=== PATIENT | male | born 1940 | race Caucasian/White ===

== ENCOUNTER → 2016-11-25 | Outpatient (CLI) | payer BC, OTHER ==
[~2016-11-25] MED LIST: ASPI81TA28 PO; ATOR-22 PO; CARB25TA12 PO; CHOL200010 PO; CLON1TAB3 PO; CYAN10004 PO; ESCI10TA17 PO; FLUD0.1T10 PO; MIRA1TAB3 PO; MISCCAP80 PO; MULT-506 PO; OMEG10007 PO
--- NOTE | 2016-11-25 17:27 | DIAGNOSTIC IMAGING REPORT ---
KUB HISTORY: CONSTIPATION - WENT TO LAB FIRST COMPARISON: None. FINDINGS: The bowel gas pattern is unremarkable. There are no dilated loops of small bowel to suggest an obstruction. No renal calculi. No ureteral calculi. No pneumoperitoneum or pneumatosis. Large amount of well-formed stool seen throughout the colon. Mild bilateral hip osteoarthritis. IMPRESSION: Large amount of well-formed stool seen throughout the colon. Electronically signed by: Micha Cloud M.D. 11/25/2016 5:26 PM Dictated Date/Time: 11/25/2016 5:24 PM
== END | disposition home or self-care (01) ==
LOC: C.LAB 16:02
DX: E55.9 Vitamin D deficiency, unspecified (principal); K59.00 Constipation, unspecified; E53.8 Deficiency of other specified B group vitamins

== ENCOUNTER → 2017-05-06 | Outpatient (CLI) | payer BC, OTHER ==
[2017-05-06 13:28] LABS: BASO % 0.3 %; BASO ABS # 0.02 K/uL (0-0.2); COMPLETE YES; EOS % 3.4 %; HEMATOCRIT 38.7 % (42-52); LYMPH % 21.1 %; LYMPH ABS # 1.36 K/uL (1.2-3.4); MEAN CELL VOLUME 94.2 fL (80-100); MEAN CORPUSCULAR HEMOGLOBIN 30.7 pg (25-34); MEAN CORPUSCULAR HGB CONC 32.6 g/dl (32-36); MEAN PLATELET VOLUME 10.8 fL (7.4-10.4); MONO % 6.3 %; NEUT % 68.9 %; PLATELET COUNT 188 K/uL (130-400); RED BLOOD COUNT 4.11 M/uL (4.7-6.1); WHITE BLOOD COUNT 6.46 K/uL (4.8-10.8)
== END | disposition home or self-care (01) ==
LOC: C.LABBC 11:28
PROVIDERS: ATTEND Internal Medicine Hematology & Oncology
DX: D64.9 Anemia, unspecified (principal)

== ENCOUNTER → 2017-08-25 | Outpatient (CLI) | payer BC, OTHER ==
--- NOTE | 2017-08-25 17:14 | DIAGNOSTIC IMAGING REPORT ---
MERVIN CLINICAL HISTORY: Constipation. COMPARISON STUDY: KUB November 25, 2016. FINDINGS: A moderate amount of stool is noted within the colon and rectum. Amount stool is diminished when compared to exam of November 25, 2016. There is no evidence for a small bowel obstruction. IMPRESSION: 1. No evidence for a bowel obstruction. 2. Moderate amount of stool within the colon and rectum, diminished when compared to exam of November 25, 2016. Electronically signed by: Dax Pozo M.D. 08/25/2017 5:12 PM Dictated Date/Time: 08/25/2017 5:11 PM
[2017-08-25 18:21] LABS: THYROID STIMULATING HORMONE 0.84 uIu/ml (0.300-4.500)
== END | disposition home or self-care (01) ==
LOC: C.RAD 16:06
DX: E03.9 Hypothyroidism, unspecified (principal); K59.00 Constipation, unspecified

== ENCOUNTER → 2017-11-28 | Outpatient (CLI) | payer BC, OTHER ==
[2017-11-28 13:54] LABS: BASO % 0.3 %; BASO ABS # 0.02 K/uL (0-0.2); EOS % 3.5 %; EOS ABS # 0.26 K/uL (0-0.5); HEMATOCRIT 37.6 % (42-52); HEMOGLOBIN 12.5 g/dL (14.0-18.0); IG# 0.01 K/uL (0.00-0.02); LYMPH % 22.1 %; LYMPH ABS # 1.63 K/uL (1.2-3.4); MEAN CELL VOLUME 91.5 fL (80-100); MEAN CORPUSCULAR HEMOGLOBIN 30.4 pg (25-34); MEAN CORPUSCULAR HGB CONC 33.2 g/dl (32-36); MEAN PLATELET VOLUME 10.5 fL (7.4-10.4); MONO % 6.9 %; MONO ABS # 0.51 K/uL (0.11-0.59); NEUT % 67.1 %; NEUT ABS # 4.94 K/uL (1.4-6.5); PLATELET COUNT 192 K/uL (130-400); RED CELL DISTRIBUTION WIDTH CV 13.9 % (11.5-14.5); RED CELL DISTRIBUTION WIDTH SD 46.8 fL (36.4-46.3); WHITE BLOOD COUNT 7.37 K/uL (4.8-10.8)
[2017-11-28 14:09] LABS: ALBUMIN 3.6 gm/dl (3.4-5.0); ALT/SGPT 15 U/L (12-78); BLOOD UREA NITROGEN 22 mg/dl (7-18); CALCIUM 8.8 mg/dl (8.5-10.1); CARBON DIOXIDE 32 mmol/L (21-32); GLUCOSE 92 mg/dl (70-99); POTASSIUM 3.8 mmol/L (3.5-5.1); SODIUM 140 mmol/L (136-145)
[2017-11-28 14:11] LABS: ALKALINE PHOSPHATASE 84 U/L (45-117); AST/SGOT 16 U/L (15-37); TOTAL PROTEIN 6.5 gm/dl (6.4-8.2)
== END | disposition home or self-care (01) ==
LOC: C.LABBC 11:46
PROVIDERS: ATTEND Internal Medicine Hematology & Oncology
DX: D64.9 Anemia, unspecified (principal); Z12.5 Encounter for screening for malignant neoplasm of prostate

== ENCOUNTER → 2018-01-13 | Outpatient (CLI) | payer BC, OTHER ==
[2018-01-13 11:02] LABS: BASO % 0.5 %; BASO ABS # 0.03 K/uL (0-0.2); EOS % 4.9 %; EOS ABS # 0.27 K/uL (0-0.5); HEMATOCRIT 38.9 % (42-52); HEMOGLOBIN 12.9 g/dL (14.0-18.0); IG# 0.01 K/uL (0.00-0.02); LYMPH % 25.7 %; LYMPH ABS # 1.42 K/uL (1.2-3.4); MEAN CELL VOLUME 91.3 fL (80-100); MEAN CORPUSCULAR HEMOGLOBIN 30.3 pg (25-34); MEAN CORPUSCULAR HGB CONC 33.2 g/dl (32-36); MEAN PLATELET VOLUME 10.3 fL (7.4-10.4); MONO % 8.7 %; MONO ABS # 0.48 K/uL (0.11-0.59); NEUT ABS # 3.32 K/uL (1.4-6.5); PLATELET COUNT 202 K/uL (130-400); RED CELL DISTRIBUTION WIDTH CV 13.5 % (11.5-14.5); RED CELL DISTRIBUTION WIDTH SD 44.9 fL (36.4-46.3); WHITE BLOOD COUNT 5.53 K/uL (4.8-10.8)
[2018-01-13 11:39] LABS: ALT/SGPT 32 U/L (12-78); AST/SGOT 19 U/L (15-37); BLOOD UREA NITROGEN 23 mg/dl (7-18); CALCIUM 8.9 mg/dl (8.5-10.1); CARBON DIOXIDE 32 mmol/L (21-32); CHOLESTEROL 144 mg/dl (0-200); CREATININE 1.01 mg/dl (0.60-1.40); GLUCOSE 88 mg/dl (70-99); POTASSIUM 3.8 mmol/L (3.5-5.1); SODIUM 140 mmol/L (136-145)
[2018-01-13 11:43] LABS: LDL CHOLESTEROL CALCULATED 68 mg/dl
== END | disposition home or self-care (01) ==
LOC: C.LABBC 08:35
DX: D64.9 Anemia, unspecified (principal); E78.5 Hyperlipidemia, unspecified; N40.0 Benign prostatic hyperplasia without lower urinary tract symptoms

== ENCOUNTER 2019-08-20 11:47 | Inpatient (IN) ==
[2019-08-20 12:40] LABS: Basophils # (auto) 0.02 K/uL (0-0.2); Basophils % (auto) 0.2 %; Eosinophils # (auto) 0.17 K/uL (0-0.5); Eosinophils % (auto) 1.8 %; Hematocrit (blood only) 41.2 % (42-52); Hemoglobin 13.7 g/dL (14.0-18.0); Immature Granulocytes # (auto) 0.01 K/uL (0.00-0.02); Immature Granulocytes % (auto) 0.1 %; Lymphocytes % (auto) 12.7 %; Mean Corpuscular Hemoglobin 30.9 pg (25-34); Mean Corpuscular Hgb Conc 33.3 g/dL (32-36); Mean Platelet Volume 10.4 fL (7.4-10.4); Monocytes # (auto) 0.74 K/uL (0.11-0.59); Monocytes % (auto) 7.8 %; Neutrophils # (auto) 7.29 K/uL (1.4-6.5); Neutrophils % (auto) 77.4 %; Platelet Count 203 K/uL (130-400); RDW Coefficient of Variation 13.8 % (11.5-14.5); RDW Standard Deviation 47.2 fL (36.4-46.3); Red Blood Count 4.43 M/uL (4.7-6.1); White Blood Count 9.43 K/uL (4.8-10.8)
[2019-08-20] MEDS ORDERED: SODIUM CHLORIDE 0.9% 1000ML 1,000 ML IV ONE (12:49)
[2019-08-20 12:58] LABS: Albumin Level 3.7 gm/dl (3.4-5.0); Calcium 9.3 mg/dl (8.5-10.1); Creatinine Clr Calc Pharmacy 63.5 ml/min; Est GFR (African American) 77.2; Est GFR (Non-African American) 66.6; Potassium 4.4 mmol/L (3.5-5.1)
[2019-08-20] MEDS ORDERED: dilTIAZem HCL 125 MG in DEXTROSE 5% 100 ML IV SCH (13:00)
--- NOTE | 2019-08-20 13:04 | XRay Report ---
XR chest 1V portable CLINICAL HISTORY: weakness COMPARISON STUDY: 06/30/2019 FINDINGS: There is mild elevation left hemidiaphragm. The cardiac and mediastinal contours remain sta ble. There is no failure. There is no focal pulmonary consolidation. There are no pleural effusions.[ IMPRESSION: No active disease in the chest. Electronically signed by: Keith Hoover M.D. 08/20/2019 1:03 PM
[2019-08-20 13:09] LABS: Albumin Globulin Ratio 1.1 (0.9-2); Bilirubin,Total 1.2 mg/dl (0.2-1); Globulin 3.5 gm/dl (2.5-4.0); Thyroid Stimulating Hormone 1.4 uIu/ml (0.300-4.500); Total Protein 7.2 gm/dl (6.4-8.2); Troponin I 0.026 ng/ml (0-0.045)
[2019-08-20 13:16] LABS: Partial Thromboplastin Ratio 1.1; Prothrombin Time 10.6 Seconds (9.0-12.0)
[2019-08-20 13:18] LABS: Bilirubin Direct 0.3 mg/dl (0-0.2); Magnesium 2.2 mg/dl (1.8-2.4)
[2019-08-20] MEDS ORDERED: OPTIRAY 320 125ml IV PRN (13:42)
[2019-08-20 13:45] LABS: Influenza A virus by PCR Neg for Influ A (Neg); Influenza B virus by PCR Neg for Influ B (Neg)
--- NOTE | 2019-08-20 13:46 | CT Scan Report ---
CT SCAN OF THE BRAIN WITHOUT IV CONTRAST CLINICAL HISTORY: Change in mental status. Syncope. Seizure. COMPARISON STUDY: CT of the brain dated 06/30/2019. TECHNIQUE: Unenhanced axial CT scan of the brain is performed from the vertex to the skull base. A do se lowering technique was utilized adhering to the principles of ALARA. CT DOSE: 729.78 mGycm FINDINGS: Brain parenchyma: There are age-related involutional changes noting mild subcortical and periventric ular microangiopathic change. There is no hemorrhage, mass effect, or evidence of acute territorial i schemia by CT criteria. Staples-white matter differentiation is preserved. No extra-axial fluid collecti on is seen. Ventricles, sulci, cisterns: Prominent secondary to involutional change. Intracranial vasculature: There is atherosclerotic calcification of the cavernous carotid and vertebr al arteries. Calvarium: Unremarkable. Sinuses and mastoids: Trace mucosal thickening is noted in the left maxillary antrum, the left spheno id sinus, an the ethmoid sinuses. The mastoid air cells are well pneumatized. Orbits: The bony orbits are grossly intact. IMPRESSION: There is no hemorrhage, mass effect, or evidence of acute territorial ischemia by CT cherri hammond. Electronically signed by: Edi Wood M.D. 08/20/2019 1:45 PM
--- NOTE | 2019-08-20 14:02 | CT Scan Report ---
CT angio chest PE protocol CT DOSE: 399.55 mGycm HISTORY: Chest pain. Dyspnea. ro PE TECHNIQUE: Multiaxial CT images of the chest were performed following the intravenous administration of contrast to evaluate the pulmonary arteries. Maximal intensity projection images were also obtaine d. A dose lowering technique was utilized adhering to the principles of ALARA. COMPARISON STUDY: None. FINDINGS: There is a normal caliber thoracic aorta with no evidence for dissection. There is no evide nce for pulmonary embolus. No pleural effusions. No pneumothorax. The liver and spleen are unremarkab le. No mediastinal or hilar lymphadenopathy. The central airways are patent. The lungs are clear. IMPRESSION: No evidence for pulmonary embolus. Lungs are clear. The above report was generated using voice recognition software. It may contain grammatical, syntax or spelling errors. Electronically signed by: Vasu Hallman M.D. 08/20/2019 2:01 PM
[2019-08-20 14:03] LABS: Appearance Urine Clear (Clear); Bacteria Urine Automated Negative (Negative); Bilirubin Urine Negative (Negative); Blood Urine Negative (Negative); Color Urine Dark Yellow; Epithelial Cell Urine Auto >30 /lpf (0-5); Glucose Urine UA Negative (Negative); Ketones Urine Trace (Negative); Leukocyte Esterase Urine Trace (Negative); Nitrite Urine Negative (Negative); Protein Urine Negative (Negative); RBC Urine Automated 0-4 /hpf (0-4); Urobilinogen Urine Negative (Negative); pH Urine 7.5 (4.5-7.5)
[2019-08-20 14:31] LABS: Mucus Urine Present (None Prsent)
--- NOTE | 2019-08-20 15:06 | History & Physical Report ---
Date of Service August 20, 2019 Assessment & Plan (1) Atrial fibrillation with RVR: -Admit to [facility] with telemetry -Resolved-converted on his own, no chemical intervention -Cardiology discussed with ER attending regarding any needs for anticoagulation in the recommend no anticoagulation at this time -consider cardiology consult -check a 2D echo -Trend troponins, initial was negative (2) Syncope: -Unknown etiology, possible cardiac in nature secondary to A. fib as above -Echo -Check orthostatic vital signs every shift, patient has been known to have history of orthostatic hypotension -Continue midodrine and fludrocortisone (3) Parkinson's disease: -Continue donepezil and Sinemet -Walks without assistive devices, PT/OT consults, from home, lives with (4) Neurogenic bladder: (5) Prostatic hypertrophy: -Increased urinary frequency, UA for any signs of infectious etiology (6) DVT prophylaxis: -Teds CODE STATUS: Full code Disposition: Patient from home, lives with , PT/OT consults, likely to remain in the hospital x1 to 2 days History of Present Illness Primary Care Provider: Jon Bal Jr, DO This is a 79-year-old male with past medical history of Parkinson's disease, BPH with lower urinary symptoms, and history of basal cell carcinoma who presents today with acute onset of syncopal episode. The patient notes that he was at home earlier this morning when he got up from his chair, took 2 steps and fell to the ground. He reports that he did not feel feel himself all morning. He denies any specific chest pain, palpitations, shortness of breath. Patient notes that when he fell he did hit his head, denies any LOC, denies any other trauma or injury. He denies any headache or dizziness. Patient notes he does not use any assistive devices with ambulation although his gait is somewhat "shaky". She notes that he has been known to have orthostatic hypotension in the past, currently is taking midodrine and fludrocortisone on a routine basis. Patient reports he ate breakfast, was drinking fluids this morning without difficulty. Patient notes that throughout his life he has experienced paroxysmal A. fib. He is not on any rate controlling agents nor anticoagulation. When he presented to the ER he was in A. fib with heart rate fluctuating between 111-140. During the ER course patient was scheduled to have a Cardizem drip on, however converted on his own without any intervention. CT of the head is negative, CTA for possible PE is also negative. Cardiology discussed with ER attending regarding needs for possible heparin drip with A. fib with RVR but no need for anticoagulation as the patient self converted, likely short timeframe of being in A. fib. Allergies Allergy/AdvReac Type Severity Reaction Status Date / Time No Known Allergies Allergy Verified 08/20/19 15:19 Home Medications Home Medications Medication Instructions Recorded Confirmed Type atorvastatin 20 mg tablet 20 mg PO QAM tab 05/11/19 08/20/19 History cholecalciferol (vitamin D3) 50 2,000 unit PO HS cap 05/11/19 08/20/19 History mcg (2,000 unit) capsule clonazepam 1 mg tablet 2 mg PO HS #45 tab 05/11/19 08/20/19 History donepezil 10 mg tablet 10 mg PO HS tab 05/11/19 08/20/19 History midodrine 5 mg tablet 5 mg PO TID tab 05/11/19 08/20/19 History escitalopram oxalate [Lexapro] 10 mg PO HS 06/30/19 08/20/19 History fludrocortisone 0.1 mg PO QAM 06/30/19 08/20/19 History levothyroxine [Synthroid] 50 mcg PO QAM 06/30/19 08/20/19 History linaclotide [Linzess] 290 mcg PO QAM 06/30/19 08/20/19 History melatonin 10 mg PO HS 06/30/19 08/20/19 History multivitamin 1 tab PO QAM 06/30/19 08/20/19 History omega [id number]-fish oil [Fish Oil] 1 cap PO HS 06/30/19 08/20/19 History potassium chloride 10 meq PO BID 06/30/19 08/20/19 History sennosides [senna] 0 mg PO BID 06/30/19 08/20/19 History polyethylene glycol 3350 17 8.5 gm PO DAILY PRN 07/14/19 08/20/19 History gram/dose oral powder carbidopa-levodopa 1 tab PO HS 08/20/19 08/20/19 History carbidopa-levodopa [Sinemet] 2 tab PO TID 08/20/19 08/20/19 History Past Med/Surg History Medical History Chronic constipation Hypotension Hypothyroidism Parkinson disease Family History Other Family history non-contributory Social History Preferred Language: Luxembourgish Communication Ability: Effective Manager Of Global Required: No Beliefs That Will Affect Care: None marital status: Current Living Situation: Spouse current occupational status: retired Other Information That Helps Us Care for You: No Feels Safe at Home: Yes Safety Concerns: Feels Safe At This Time Smoking Status: Never smoker Hx Alcohol Use: No Hx Substance Use: No Review of Systems Review of Systems: Constitutional: No fever, sweats or chills Eyes: No diplopia, no worsening or blurred vision ENT: normal hearing, no trouble swallowing Respiratory: No cough, sputum, dyspnea at rest or on exertion Cardiovascular: No chest pain, tightness or palpitations Abdomen: No pain, nausea, vomiting, diarrhea or constipation Musculoskeletal: No joint pain, calf pain, swelling Neurologic: No weakness, numbness/tingling, or balance problems Psychiatric: No anxiety or depression Skin: No rash or itch Physical Exam Physical Exam: General: awake, alert, no apparent distress Head: Normocephalic, atraumatic ENT: PERRL, EOMI, no pharyngeal exudate, mucous membranes moist Chest: Clear to auscultation, on room air, no adventitious breath sounds Cardiac: Regular rate and rhythm, no murmur, no JVD, normal peripheral pulses, good capillary refill Abdominal: NABS x 4 quadrants, soft, nontender to palpation, no rebound, guarding or tenderness Extremities: Normal inspection, no peripheral edema or erythema, calfs nontender to palpation Psych: Normal mood, + somewhat flat affect Neuro: AAO x 3, strength intact bilaterally and related 5/5, no motor deficits, speech is clear, no peripheral sensory deficits Skin: no rash or erythema Results & Data Vital Signs (Past 12 Hours) Vital Signs Temp Pulse Resp BP Pulse Ox 08/20/19 14:50 75 16 97 08/20/19 14:40 77 15 97 08/20/19 14:31 78 13 99 08/20/19 14:30 80 15 194/101 H 97 08/20/19 14:23 78 18 177/101 H 98 08/20/19 14:21 76 14 98 08/20/19 14:10 76 13 98 08/20/19 14:01 72 12 173/95 H 97 08/20/19 14:00 75 16 93 08/20/19 13:50 76 15 98 08/20/19 13:49 79 17 08/20/19 13:28 103/64 08/20/19 13:27 79 20 123/69 98 08/20/19 13:26 77 18 139/81 96 08/20/19 13:20 63 17 100 08/20/19 13:10 64 23 99 08/20/19 13:01 130 H 20 97 08/20/19 13:00 129 H 18 114/83 97 08/20/19 12:50 121 H 15 98 08/20/19 12:40 119 H 25 H 98 08/20/19 12:31 121 H 18 98 08/20/19 12:30 128 H 15 112/80 98 08/20/19 12:28 124 H 19 97 08/20/19 12:25 125 H 19 129/76 97 08/20/19 12:12 36.7 C 82 18 66/48 L 98 Diagnostic Findings XR chest 1V portable CLINICAL HISTORY: weakness COMPARISON STUDY: 06/30/2019 FINDINGS: There is mild elevation left hemidiaphragm. The cardiac and mediastinal contours remain stable. There is no failure. There is no focal pulmonary consolidation. There are no pleural effusions.[ IMPRESSION: No active disease in the chest. CT SCAN OF THE BRAIN WITHOUT IV CONTRAST CLINICAL HISTORY: Change in mental status. Syncope. Seizure. COMPARISON STUDY: CT of the brain dated 06/30/2019. TECHNIQUE: Unenhanced axial CT scan of the brain is performed from the vertex to the skull base. A dose lowering technique was utilized adhering to the principles of ALARA. CT DOSE: 729.78 mGycm FINDINGS: Brain parenchyma: There are age-related involutional changes noting mild subcortical and periventricular microangiopathic change. There is no hemorrhage, mass effect, or evidence of acute territorial ischemia by CT criteria. Staples- white matter differentiation is preserved. No extra-axial fluid collection is seen. Ventricles, sulci, cisterns: Prominent secondary to involutional change. Intracranial vasculature: There is atherosclerotic calcification of the cavernous carotid and vertebral arteries. Calvarium: Unremarkable. Sinuses and mastoids: Trace mucosal thickening is noted in the left maxillary antrum, the left sphenoid sinus, an the ethmoid sinuses. The mastoid air cells are well pneumatized. Orbits: The bony orbits are grossly intact. IMPRESSION: There is no hemorrhage, mass effect, or evidence of acute territorial ischemia by CT criteria. CT angio chest PE protocol CT DOSE: 399.55 mGycm HISTORY: Chest pain. Dyspnea. ro PE TECHNIQUE: Multiaxial CT images of the chest were performed following the intravenous administration of contrast to evaluate the pulmonary arteries. Maximal intensity projection images were also obtained. A dose lowering technique was utilized adhering to the principles of ALARA. COMPARISON STUDY: None. FINDINGS: There is a normal caliber thoracic aorta with no evidence for dissection. There is no evidence for pulmonary embolus. No pleural effusions. No pneumothorax. The liver and spleen are unremarkable. No mediastinal or hilar lymphadenopathy. The central airways are patent. The lungs are clear. IMPRESSION: No evidence for pulmonary embolus. Lungs are clear. ECG Additional Comments: 20-AUG-2019 13:22:30 [facility]-EDSTAT ROUTINE RETRIEVAL Normal sinus rhythm Normal ECG When compared with ECG of 20-AUG-2019 12:21, (unconfirmed) Sinus rhythm has replaced Atrial fibrillation Vent. rate has decreased BY 46 BPM 25mm/s 10mm/mV 150Hz 9.0.9 12SL 241 KADEN: 16 Referred by: REFERRED SELF Unconfirmed Vent. rate 68 BPM ND interval 158 ms QRS duration 90 ms QT/QTc 400/425 ms P-R-T axes 75 9 36 Supervising Physician Co-Signing Physician Notes Attending Admit Note & Attestation: PT seen/examined, chart reviewed, care plan d/w HERBERT Edwards. I agree w/ the esteves components of her admission documentation. 79yo male with h/o PD, severe orthostatic hypotension presumably 2nd to PD, and BPH who presented with syncopal episode. Prior to event he had felt unwell for a few hours (since awakening this am). Upon ER presentation was in rapid a.fib. Converted to NSR while awaiting admission. Has prior h/o PAF. Does not take anticoagulants. Over last few days had felt fine with no other changes in health. PMH, PSH, allergies, meds, sochx, famhx, ros - reviewed VSS except +orthostatics gen - NAD, a/o x 3 mouth - MMM neck - no JVD heart - RRR, s1 s2 lungs - CTA b/l abd - soft ext - no edema neuro - masked facies; strength 5/5 x 4 exts labs, imaging, EKGs - reviewed; initial 12-lead EKG w/ rapid a.fib; repeat EKG showed NSR; no ST changes. A/P: 1. syncope- likely due to rapid a.fib in combination with underlying severe orthostatic hypotension. 2. PAF - resolved, back in NSR. CHADS-VASc score is 2 (unless echo shows depressed EF). Apparently had hit head with syncopal event. Uncertain if he is anticoagulation candidate. K, mag, TSH - all normal. echo in am. consider cardiology consult - need for antiarrhythmic? 3. orthostatic hypotension - could consider titration of one of his meds (florinef, etc). Would place TEDs and use compression at home. 4. PD Pt eval in am to ensure safe for home. Son updated at bedside. Endy Shin MD PG Care Time/CCT Total # of Minutes Spent Total Time Spent with Patient: Total time spent is greater than 50% in coordination of care (as documented) at patient's floor/unit and/or counseling patient: (1) Syncope Syncope type: unspecified Qualified Code(s): R55 - Syncope and collapse
--- NOTE | 2019-08-20 17:38 | Emergency Department Note ---
Entered by Meri Eisenberg acting as a scribe for History of Present Illness General Chief complaint: Syncope Stated complaint: DIZZY,PASSED OUT,SEIZURE LIKE SYMPTOMS Time Seen by Provider: 08/20/19 12:38 Source: patient History of Present Illness Onset (ago): hour(s) (1.5) Location: head Pain Consistency: + other (episode) Maximum Pain Intensity: 0 Quality: + other (syncope) Associated symptoms: + denies other symptoms (abdominal pain) and + other (dizziness, partial vision loss, shaking arms); no chest pain and no shortness of breath The patient is a 79 year old male who presents to the Emergency Room with complaints of an episode of syncope occurring 1.5 hours ago. The patient states that he was walking a few feet in his house when he started to feel a little dizzy. He states that he has a history of Parkinsons and doesnt always feel well in the morning so he didnt think this was too unusual. He states that the next thing he knew, he was on the floor. The patients family states that she saw the whole thing. She reports that he ended up hitting his head on the counter. She reports that he then had what appeared to be seizure like activity with shaking of his arms. She notes that this has happened once [place] but he got better once he drank some water. She notes that they did bring it up to his PCP and Parkinsons doctor, but they didnt think much of it. The patient complains partial vision loss where dots are missing and notes he has had this before. The patient denies use of blood thinners, chest pain, shortness of breath, and abdominal pain. Home Medications Home Medications Medication Instructions Recorded Confirmed Type atorvastatin 20 mg tablet 20 mg PO QAM tab 05/11/19 08/20/19 History cholecalciferol (vitamin D3) 50 2,000 unit PO HS cap 05/11/19 08/20/19 History mcg (2,000 unit) capsule clonazepam 1 mg tablet 2 mg PO HS #45 tab 05/11/19 08/20/19 History donepezil 10 mg tablet 10 mg PO HS tab 05/11/19 08/20/19 History midodrine 5 mg tablet 5 mg PO TID tab 05/11/19 08/20/19 History escitalopram oxalate [Lexapro] 10 mg PO HS 06/30/19 08/20/19 History fludrocortisone 0.1 mg PO QAM 06/30/19 08/20/19 History levothyroxine [Synthroid] 50 mcg PO QAM 06/30/19 08/20/19 History linaclotide [Linzess] 290 mcg PO QAM 06/30/19 08/20/19 History melatonin 10 mg PO HS 06/30/19 08/20/19 History multivitamin 1 tab PO QAM 06/30/19 08/20/19 History omega 7-mmq-hgt-fish oil [Fish Oil] 1 cap PO HS 06/30/19 08/20/19 History potassium chloride 10 meq PO BID 06/30/19 08/20/19 History sennosides [senna] 0 mg PO BID 06/30/19 08/20/19 History polyethylene glycol 3350 17 8.5 gm PO DAILY PRN 07/14/19 08/20/19 History gram/dose oral powder carbidopa-levodopa 1 tab PO HS 08/20/19 08/20/19 History carbidopa-levodopa [Sinemet] 2 tab PO TID 08/20/19 08/20/19 History Allergies Allergy/AdvReac Type Severity Reaction Status Date / Time No Known Allergies Allergy Verified 08/20/19 15:19 Past Med/Surg History Medical History Chronic constipation Hypotension Hypothyroidism Parkinson disease Family History Other Family history non-contributory Social History Preferred Language: Citizen Of [place] Communication Ability: Effective Adoption Services Manager Required: No Beliefs That Will Affect Care: None marital status: Current Living Situation: Spouse current occupational status: retired Other Information That Helps Us Care for You: No Feels Safe at Home: Yes Safety Concerns: Feels Safe At This Time Smoking Status: Never smoker Hx Alcohol Use: No Hx Substance Use: No Review of Systems See HPI for pertinent positives & negatives. and A total of 10 systems reviewed and were otherwise negative Physical Exam Vital Signs Vital Signs - 24 hr 08/20/19 12:12 08/20/19 12:25 08/20/19 12:28 Temperature 36.7 C Temperature Source Oral Pulse Rate - Lying Pulse Rate - Sitting Pulse Rate - Standing Pulse Rate 82 125 H 124 H Pulse Rate from SpO2 Sensor 105 H 110 H Respiratory Rate 18 19 19 Respiratory Effort / Characteristics Non-Labored Spontaneous Respiratory Depth Normal Respiratory Pattern Regular Blood Pressure - Lying Blood Pressure - Sitting Blood Pressure- Standing Blood Pressure 66/48 L 129/76 Blood Pressure Mean 54 96 Blood Pressure Position Sitting Pulse Oximetry 98 97 97 Oxygen Delivery Method Room Air Sepsis Recent Fever Within 48 Hours No Sepsis New/Unexplained Change in Mental Status No Sepsis Action Taken by Nursing No Action Required 08/20/19 12:30 08/20/19 12:31 08/20/19 12:40 Temperature Temperature Source Pulse Rate - Lying Pulse Rate - Sitting Pulse Rate - Standing Pulse Rate 128 H 121 H 119 H Pulse Rate from SpO2 Sensor 113 H 109 H 118 H Respiratory Rate 15 18 25 H Respiratory Effort / Characteristics Respiratory Depth Respiratory Pattern Blood Pressure - Lying Blood Pressure - Sitting Blood Pressure- Standing Blood Pressure 112/80 Blood Pressure Mean 102 Blood Pressure Position Pulse Oximetry 98 98 98 Oxygen Delivery Method Sepsis Recent Fever Within 48 Hours Sepsis New/Unexplained Change in Mental Status Sepsis Action Taken by Nursing 08/20/19 12:50 08/20/19 13:00 08/20/19 13:01 Temperature Temperature Source Pulse Rate - Lying Pulse Rate - Sitting Pulse Rate - Standing Pulse Rate 121 H 129 H 130 H Pulse Rate from SpO2 Sensor 111 H 122 H 123 H Respiratory Rate 15 18 20 Respiratory Effort / Characteristics Respiratory Depth Respiratory Pattern Blood Pressure - Lying Blood Pressure - Sitting Blood Pressure- Standing Blood Pressure 114/83 Blood Pressure Mean 96 Blood Pressure Position Pulse Oximetry 98 97 97 Oxygen Delivery Method Sepsis Recent Fever Within 48 Hours Sepsis New/Unexplained Change in Mental Status Sepsis Action Taken by Nursing 08/20/19 13:10 08/20/19 13:20 08/20/19 13:26 Temperature Temperature Source Pulse Rate - Lying Pulse Rate - Sitting Pulse Rate - Standing Pulse Rate 64 63 77 Pulse Rate from SpO2 Sensor 64 65 68 Respiratory Rate 23 17 18 Respiratory Effort / Characteristics Respiratory Depth Respiratory Pattern Blood Pressure - Lying Blood Pressure - Sitting Blood Pressure- Standing Blood Pressure 139/81 Blood Pressure Mean 98 Blood Pressure Position Pulse Oximetry 99 100 96 Oxygen Delivery Method Sepsis Recent Fever Within 48 Hours Sepsis New/Unexplained Change in Mental Status Sepsis Action Taken by Nursing 08/20/19 13:27 08/20/19 13:28 08/20/19 13:45 Temperature Temperature Source Pulse Rate - Lying 67 Pulse Rate - Sitting 71 Pulse Rate - Standing 78 Pulse Rate 79 Pulse Rate from SpO2 Sensor 71 Respiratory Rate 20 Respiratory Effort / Characteristics Respiratory Depth Respiratory Pattern Blood Pressure - Lying 139/81 Blood Pressure - Sitting 123/69 Blood Pressure- Standing 103/64 Blood Pressure 123/69 103/64 Blood Pressure Mean 95 75 Blood Pressure Position Pulse Oximetry 98 Oxygen Delivery Method Sepsis Recent Fever Within 48 Hours Sepsis New/Unexplained Change in Mental Status Sepsis Action Taken by Nursing 08/20/19 13:49 08/20/19 13:50 08/20/19 14:00 Temperature Temperature Source Pulse Rate - Lying Pulse Rate - Sitting Pulse Rate - Standing Pulse Rate 79 76 75 Pulse Rate from SpO2 Sensor 77 75 Respiratory Rate 17 15 16 Respiratory Effort / Characteristics Respiratory Depth Respiratory Pattern Blood Pressure - Lying Blood Pressure - Sitting Blood Pressure- Standing Blood Pressure Blood Pressure Mean Blood Pressure Position Pulse Oximetry 98 93 Oxygen Delivery Method Sepsis Recent Fever Within 48 Hours Sepsis New/Unexplained Change in Mental Status Sepsis Action Taken by Nursing 08/20/19 14:01 08/20/19 14:10 08/20/19 14:21 Temperature Temperature Source Pulse Rate - Lying Pulse Rate - Sitting Pulse Rate - Standing Pulse Rate 72 76 76 Pulse Rate from SpO2 Sensor 74 75 83 Respiratory Rate 12 13 14 Respiratory Effort / Characteristics Respiratory Depth Respiratory Pattern Blood Pressure - Lying Blood Pressure - Sitting Blood Pressure- Standing Blood Pressure 173/95 H Blood Pressure Mean 114 Blood Pressure Position Pulse Oximetry 97 98 98 Oxygen Delivery Method Sepsis Recent Fever Within 48 Hours Sepsis New/Unexplained Change in Mental Status Sepsis Action Taken by Nursing 08/20/19 14:23 08/20/19 14:30 08/20/19 14:31 Temperature Temperature Source Pulse Rate - Lying Pulse Rate - Sitting Pulse Rate - Standing Pulse Rate 78 80 78 Pulse Rate from SpO2 Sensor 76 82 78 Respiratory Rate 18 15 13 Respiratory Effort / Characteristics Respiratory Depth Respiratory Pattern Blood Pressure - Lying Blood Pressure - Sitting Blood Pressure- Standing Blood Pressure 177/101 H 194/101 H Blood Pressure Mean 118 123 Blood Pressure Position Pulse Oximetry 98 97 99 Oxygen Delivery Method Sepsis Recent Fever Within 48 Hours Sepsis New/Unexplained Change in Mental Status Sepsis Action Taken by Nursing 08/20/19 14:40 08/20/19 14:50 08/20/19 15:03 Temperature Temperature Source Pulse Rate - Lying Pulse Rate - Sitting Pulse Rate - Standing Pulse Rate 77 75 75 Pulse Rate from SpO2 Sensor 78 75 80 Respiratory Rate 15 16 17 Respiratory Effort / Characteristics Respiratory Depth Respiratory Pattern Blood Pressure - Lying Blood Pressure - Sitting Blood Pressure- Standing Blood Pressure Blood Pressure Mean Blood Pressure Position Pulse Oximetry 97 97 96 Oxygen Delivery Method Sepsis Recent Fever Within 48 Hours Sepsis New/Unexplained Change in Mental Status Sepsis Action Taken by Nursing 08/20/19 15:30 Temperature Temperature Source Pulse Rate - Lying Pulse Rate - Sitting Pulse Rate - Standing Pulse Rate 80 Pulse Rate from SpO2 Sensor 79 Respiratory Rate 17 Respiratory Effort / Characteristics Respiratory Depth Respiratory Pattern Blood Pressure - Lying Blood Pressure - Sitting Blood Pressure- Standing Blood Pressure Blood Pressure Mean Blood Pressure Position Pulse Oximetry 96 Oxygen Delivery Method Sepsis Recent Fever Within 48 Hours Sepsis New/Unexplained Change in Mental Status Sepsis Action Taken by Nursing GENERAL: He is oriented to person, place, and time. He appears well-developed and well-nourished. He does not appear distressed. HENT: Exam performed. - Head: Normocephalic. Abrasions over his head and his left shoulder. - Right Ear: External ear normal. No mastoid tenderness. - Left Ear: External ear normal. No mastoid tenderness. - Mouth/Throat: The oropharynx is clear and moist. No trismus in the jaw. No dental abscesses or uvula swelling. No oropharyngeal exudate or tonsillar abscesses. EYES: Conjunctivae and EOM are normal. Pupils are equal, round, and reactive to light. Right eye exhibits no discharge. Left eye exhibits no discharge. No scleral icterus. NECK: Normal range of motion. Neck supple. No JVD present. No spinous process tenderness present. No carotid bruit present. No rigidity. No tracheal deviation and normal range of motion present. No Brudzinski's sign and no Kernig's sign noted. CV: Tachycardic rate, irregular rhythm, normal heart sounds and intact distal pulses. There is no peripheral edema. Palpable radial pulses bue. PULM/CHEST: Effort normal and breath sounds normal. No respiratory distress. No stridor. He has no wheezes. He has no rales. - Chest Wall: He exhibits no tenderness. ABD: The abdomen is soft. Bowel sounds are normal. He has no distension. No mass is present. There is no tenderness. There is no rebound, no guarding, no Garcia's sign and no tenderness at McBurney's point. Rovsig negative. MUSC/SKEL: Normal range of motion. There is no peripheral edema, tenderness or deformity. LYMPH: No cervical adenopathy. NEURO: He is alert and oriented to person, place, and time. He has normal strength. No cranial nerve deficit or sensory deficit. GCS eye subscore is 4. GCS verbal subscore is 5. GCS motor subscore is 6. Mild ataxia with finger to nose test. SKIN: Skin is warm and dry. He is not diaphoretic. PSYCH: He has a normal mood and affect. Behavior is normal. Judgment and thought content normal. Course Course 1238: The patient was evaluated in room B11A. A complete history and physical exam was performed. Patient was seen during a period of high acuity and volume in the ED. Nursing protocols were started. Upon arrival in room, the patient was found to be in A-fib RVR on the color television console monitor with a heart rate between 111 and 150. He says that 35 years ago he was told he had A-fib and to stop drinking caffeine. He states he drinks coffee every day and had his normal amount today. He states that he has never been told he has had it since then. I reviewed the patient's EKGs over the last 2 years and there is no evidence of atrial fibrillation in any of them. A Cardizem drip was ordered for the patient's A-fib. 1315: The rehabilitation technician bought me a rhythm strip that showed the patient had converted to sinus. Upon reevaluation in the patient's room, the patient had converted to sinus rhythm without any intervention. Repeat EKG showed that the patient was in sinus rhythm. We are going to continue to monitor him. 1419: Vital signs stable Patient remains in sinu rhythm, Labs and imaging within normal limits. Given the patient's history of Parkinson's disease and re current falls, it is thought that the patient was not a good candidate for anticoagulation. No heparin started at this time. Patient remains in sinus rhythm, will hold Cardizem at this time. I discussed the patient's case with Dr. Torres- Cardiology. He agrees with decision of no anticoagulation at this time. 1424: I discussed the patient's case with Carla Miller PA-C- [facility]. She will evaluate the patient for further management under Dr. Shin's service. Administered Medications Diltiazem HCl 125 mg/ Dextrose 125 mls @ 5 mls/hr IV .Q24H [facility]; Protocol Stop: 09/19/19 12:59 Last Admin: 08/20/19 13:58 Dose: Not Given Documented by: [id number] Ioversol (Optiray 320 125ml) 120 ml IV ONCE PRN PRN Reason: Interaction Checking Stop: 08/24/19 13:41 Last Admin: 08/20/19 13:42 Dose: 120 ml Documented by: [id number] Discontinued Medications Sodium Chloride (Nss 1000ml) 1,000 mls @ 999 mls/hr IV .Q1H1M ONE Stop: 08/20/19 13:49 Last Infusion: 08/20/19 15:28 Dose: 0 mls/hr Documented by: [id number] Admin: 08/20/19 13:58 Dose: 999 mls/hr Documented by: [id number] Medical Decision Making Medical Records Attestation: I reviewed the patient's medical records. Home Medications Current Medication List: was personally reviewed by ut Laboratory Data Attestation: I reviewed the patient's lab results. Result diagrams: 08/20/19 12:31 08/20/19 12:31 Lab Results 08/20/19 08/20/19 08/20/19 Range/Units 12:31 12:31 12:31 WBC 9.43 (4.8-10.8) K/uL RBC 4.43 L (4.7-6.1) M/uL Hgb 13.7 L (14.0-18.0) g/dL Hct 41.2 L (42-52) % MCV 93.0 (80-100) fL MCH 30.9 (25-34) pg MCHC 33.3 (32-36) g/dL RDW Std Deviation 47.2 H (36.4-46.3) fL RDW Coeff of Imelda 13.8 (11.5-14.5) % Plt Count 203 (130-400) K/uL MPV 10.4 (7.4-10.4) fL Immature Gran % (Auto) 0.1 % Neut % (Auto) 77.4 % Lymph % (Auto) 12.7 % Blanco % (Auto) 7.8 % Eos % (Auto) 1.8 % Baso % (Auto) 0.2 % Immature Gran # (Auto) 0.01 (0.00-0.02) K/uL Neut # (Auto) 7.29 H (1.4-6.5) K/uL Lymph # (Auto) 1.20 (1.2-3.4) K/uL [place] # (Auto) 0.74 H (0.11-0.59) K/uL Eos # (Auto) 0.17 (0-0.5) K/uL Baso # (Auto) 0.02 (0-0.2) K/uL PT (9.0-12.0) Seconds INR (0.9-1.1) APTT (21.0-31.0) Seconds PTT Ratio Sodium 138 (136-145) mmol/L Potassium 4.4 (3.5-5.1) mmol/L Chloride 103 (98-107) mmol/L Carbon Dioxide 30 (21-32) mmol/L Anion Gap 4.0 (3-11) BUN 20 H (7-18) mg/dl Creatinine 1.07 (0.6-1.4) mg/dl Est Cr Clr Drug Dosing 63.5 ml/min Est GFR ( Amer) 77.2 Est GFR (Non-Af Amer) 66.6 BUN/Creatinine Ratio 19.0 (10-20) Glucose 99 (70-99) mg/dl Lactate (0.4-2.0) mmol/L Calcium 9.3 (8.5-10.1) mg/dl Magnesium 2.2 (1.8-2.4) mg/dl Total Bilirubin 1.2 H (0.2-1) mg/dl Direct Bilirubin 0.3 H (0-0.2) mg/dl AST 23 (15-37) U/L ALT 15 (12-78) U/L Alkaline Phosphatase 85 (45-117) U/L Troponin I 0.026 (0-0.045) ng/ml Total Protein 7.2 (6.4-8.2) gm/dl Albumin 3.7 (3.4-5.0) gm/dl Globulin 3.5 (2.5-4.0) gm/dl Albumin/Globulin Ratio 1.1 (0.9-2) Lipase 135 (73-393) U/L TSH 1.400 (0.300-4.500) uIu/ml Prolactin ng/ml Urine Color Urine Appearance (Clear) Urine pH (4.5-7.5) Ur Specific [place] (1.000-1.030) Urine Protein (Negative) Urine Glucose (UA) (Negative) Urine Ketones (Negative) Urine Blood (Negative) Urine Nitrite (Negative) Urine Bilirubin (Negative) Urine Urobilinogen (Negative) Ur Leukocyte Esterase (Negative) Urine WBC (Auto) (0-5) /hpf Urine RBC (Auto) (0-4) /hpf U Hyaline Cast (Auto) (0-5) /lpf U Epithel Cells (Auto) (0-5) /lpf Urine Bacteria (Auto) (Negative) Ur Renal Epithelial Cell Urine Mucus (None Prsent) Influenza Type A (PCR) (Neg) Influenza Type B (PCR) (Neg) 08/20/19 08/20/19 08/20/19 Range/Units 12:31 12:31 12:50 WBC (4.8-10.8) K/uL RBC (4.7-6.1) M/uL Hgb (14.0-18.0) g/dL Hct (42-52) % MCV (80-100) fL MCH (25-34) pg MCHC (32-36) g/dL RDW Std Deviation (36.4-46.3) fL RDW Coeff of Imelda (11.5-14.5) % Plt Count (130-400) K/uL MPV (7.4-10.4) fL Immature Gran % (Auto) % Neut % (Auto) % Lymph % (Auto) % [place] % (Auto) % Eos % (Auto) % Baso % (Auto) % Immature Gran # (Auto) (0.00-0.02) K/uL Neut # (Auto) (1.4-6.5) K/uL Lymph # (Auto) (1.2-3.4) K/uL [place] # (Auto) (0.11-0.59) K/uL Eos # (Auto) (0-0.5) K/uL Baso # (Auto) (0-0.2) K/uL PT 10.6 (9.0-12.0) Seconds INR 1.0 (0.9-1.1) APTT 29.0 (21.0-31.0) Seconds PTT Ratio 1.1 Sodium (136-145) mmol/L Potassium (3.5-5.1) mmol/L Chloride (98-107) mmol/L Carbon Dioxide (21-32) mmol/L Anion Gap (3-11) BUN (7-18) mg/dl Creatinine (0.6-1.4) mg/dl Est Cr Clr Drug Dosing ml/min Est GFR ( Amer) Est GFR (Non-Af Amer) BUN/Creatinine Ratio (10-20) Glucose (70-99) mg/dl Lactate 1.0 (0.4-2.0) mmol/L Calcium (8.5-10.1) mg/dl Magnesium (1.8-2.4) mg/dl Total Bilirubin (0.2-1) mg/dl Direct Bilirubin (0-0.2) mg/dl AST (15-37) U/L ALT (12-78) U/L Alkaline Phosphatase (45-117) U/L Troponin I (0-0.045) ng/ml Total Protein (6.4-8.2) gm/dl Albumin (3.4-5.0) gm/dl Globulin (2.5-4.0) gm/dl Albumin/Globulin Ratio (0.9-2) Lipase (73-393) U/L TSH (0.300-4.500) uIu/ml Prolactin 5.68 ng/ml Urine Color Urine Appearance (Clear) Urine pH (4.5-7.5) Ur Specific [place] (1.000-1.030) Urine Protein (Negative) Urine Glucose (UA) (Negative) Urine Ketones (Negative) Urine Blood (Negative) Urine Nitrite (Negative) Urine Bilirubin (Negative) Urine Urobilinogen (Negative) Ur Leukocyte Esterase (Negative) Urine WBC (Auto) (0-5) /hpf Urine RBC (Auto) (0-4) /hpf U Hyaline Cast (Auto) (0-5) /lpf U Epithel Cells (Auto) (0-5) /lpf Urine Bacteria (Auto) (Negative) Ur Renal Epithelial Cell Urine Mucus (None Prsent) Influenza Type A (PCR) (Neg) Influenza Type B (PCR) (Neg) 08/20/19 08/20/19 Range/Units 13:10 13:47 WBC (4.8-10.8) K/uL RBC (4.7-6.1) M/uL Hgb (14.0-18.0) g/dL Hct (42-52) % MCV (80-100) fL MCH (25-34) pg MCHC (32-36) g/dL RDW Std Deviation (36.4-46.3) fL RDW Coeff of Imelda (11.5-14.5) % Plt Count (130-400) K/uL MPV (7.4-10.4) fL Immature Gran % (Auto) % Neut % (Auto) % Lymph % (Auto) % [place] % (Auto) % Eos % (Auto) % Baso % (Auto) % Immature Gran # (Auto) (0.00-0.02) K/uL Neut # (Auto) (1.4-6.5) K/uL Lymph # (Auto) (1.2-3.4) K/uL [place] # (Auto) (0.11-0.59) K/uL Eos # (Auto) (0-0.5) K/uL Baso # (Auto) (0-0.2) K/uL PT (9.0-12.0) Seconds INR (0.9-1.1) APTT (21.0-31.0) Seconds PTT Ratio Sodium (136-145) mmol/L Potassium (3.5-5.1) mmol/L Chloride (98-107) mmol/L Carbon Dioxide (21-32) mmol/L Anion Gap (3-11) BUN (7-18) mg/dl Creatinine (0.6-1.4) mg/dl Est Cr Clr Drug Dosing ml/min Est GFR ( Amer) Est GFR (Non-Af Amer) BUN/Creatinine Ratio (10-20) Glucose (70-99) mg/dl Lactate (0.4-2.0) mmol/L Calcium (8.5-10.1) mg/dl Magnesium (1.8-2.4) mg/dl Total Bilirubin (0.2-1) mg/dl Direct Bilirubin (0-0.2) mg/dl AST (15-37) U/L ALT (12-78) U/L Alkaline Phosphatase (45-117) U/L Troponin I (0-0.045) ng/ml Total Protein (6.4-8.2) gm/dl Albumin (3.4-5.0) gm/dl Globulin (2.5-4.0) gm/dl Albumin/Globulin Ratio (0.9-2) Lipase (73-393) U/L TSH (0.300-4.500) uIu/ml Prolactin ng/ml Urine Color Dark Yellow Urine Appearance Clear (Clear) Urine pH 7.5 (4.5-7.5) Ur Specific [place] 1.020 (1.000-1.030) Urine Protein Negative (Negative) Urine Glucose (UA) Negative (Negative) Urine Ketones Trace H (Negative) Urine Blood Negative (Negative) Urine Nitrite Negative (Negative) Urine Bilirubin Negative (Negative) Urine Urobilinogen Negative (Negative) Ur Leukocyte Esterase Trace H (Negative) Urine WBC (Auto) 1-5 (0-5) /hpf Urine RBC (Auto) 0-4 (0-4) /hpf U Hyaline Cast (Auto) 10-30 H (0-5) /lpf U Epithel Cells (Auto) >30 H (0-5) /lpf Urine Bacteria (Auto) Negative (Negative) Ur Renal Epithelial Cell Not Reportable Urine Mucus Present A (None Prsent) Influenza Type A (PCR) Neg for Influ A (Neg) Influenza Type B (PCR) Neg for Influ B (Neg) Imaging Data Radiologist's Impression: Radiology results as stated below per my review and the radiologist's interpretation: XR chest 1V portable CLINICAL HISTORY: weakness COMPARISON STUDY: 06/30/2019 FINDINGS: There is mild elevation left hemidiaphragm. The cardiac and mediastinal contours remain stable. There is no failure. There is no focal pulmonary consolidation. There are no pleural effusions.[ IMPRESSION: No active disease in the chest. Electronically signed by: Keith Hoover M.D. 08/20/2019 1:[address] SCAN OF THE BRAIN WITHOUT IV CONTRAST CLINICAL HISTORY: Change in mental status. Syncope. Seizure. COMPARISON STUDY: CT of the brain dated 06/30/2019. TECHNIQUE: Unenhanced axial CT scan of the brain is performed from the vertex to the skull base. A dose lowering technique was utilized adhering to the principles of ALARA. CT DOSE: 729.78 mGycm FINDINGS: Brain parenchyma: There are age-related involutional changes noting mild subcortical and periventricular microangiopathic change. There is no hemorrhage, mass effect, or evidence of acute territorial ischemia by CT criteria. Staples- white matter differentiation is preserved. No extra-axial fluid collection is seen. Ventricles, sulci, cisterns: Prominent secondary to involutional change. Intracranial vasculature: There is atherosclerotic calcification of the cavernous carotid and vertebral arteries. Calvarium: Unremarkable. Sinuses and mastoids: Trace mucosal thickening is noted in the left maxillary antrum, the left sphenoid sinus, an the ethmoid sinuses. The mastoid air cells are well pneumatized. Orbits: The bony orbits are grossly intact. IMPRESSION: There is no hemorrhage, mass effect, or evidence of acute territorial ischemia by CT criteria. Electronically signed by: Edi Wood M.D. 08/20/2019 1:[address] angio chest PE protocol CT DOSE: 399.55 mGycm HISTORY: Chest pain. Dyspnea. ro PE TECHNIQUE: Multiaxial CT images of the chest were performed following the intravenous administration of contrast to evaluate the pulmonary arteries. Maximal intensity projection images were also obtained. A dose lowering technique was utilized adhering to the principles of ALARA. COMPARISON STUDY: None. FINDINGS: There is a normal caliber thoracic aorta with no evidence for dissection. There is no evidence for pulmonary embolus. No pleural effusions. No pneumothorax. The liver and spleen are unremarkable. No mediastinal or hilar lymphadenopathy. The central airways are patent. The lungs are clear. IMPRESSION: No evidence for pulmonary embolus. Lungs are clear. The above report was generated using voice recognition software. It may contain grammatical, syntax or spelling errors. Electronically signed by: Vasu Hallman M.D. 08/20/2019 2:01 PM ECG Data Attestation: I personally reviewed and interpreted this ECG as follows: Indication: + syncope Rate (beats per minute): 114 Rhythm: + atrial fibrillation ECG Intervals/blocks: + Normal QRS and + Normal QT-c ECG ST segments: no ST depression and no ST elevation Comparison ECG Date: from (the past 2 years) Change: the following changes noted (atrial fibrillation is new) Additional Comments: REPEAT EKG: Sinus rhythm at a rate of 68. [place], QRS, and QT-c intervals are within normal limits. No ST elevation or ST depression. Blood Pressure Blood Pressure Findings: Elevated blood pressure Blood Pressure Disposition: further management by hospitalist [facility] Narrative 1238: The patient was evaluated in room B11A. A complete history and physical exam was performed. Patient was seen during a period of high acuity and volume in the ED. Nursing protocols were started. Upon arrival in room, the patient was found to be in A-fib RVR on the color television console monitor with a heart rate between 111 and 150. He says that 35 years ago he was told he had A-fib and to stop drinking caffeine. He states he drinks coffee every day and had his normal amount today. He states that he has never been told he has had it since then. I review ed the patient's EKGs over the last 2 years and there is no evidence of atrial fibrillation in any of them. A Cardizem drip was ordered for the patient's A- fib. 1315: The rehabilitation technician bought me a rhythm strip that showed the patient had converted to sinus. Upon reevaluation in the patient's room, the patient had converted to sinus rhythm without any intervention. Repeat EKG showed that the patient was in sinus rhythm. We are going to continue to monitor him. 1419: Vital signs stable Patient remains in sinu rhythm, Labs and imaging within normal limits. Given the patient's history of Parkinson's disease and recurrent falls, it is thought that the patient was not a good candidate for anticoagulation. No heparin started at this time. Patient remains in sinus rhythm, will hold Cardizem at this time. I discussed the patient's case with Dr. Torres- Cardiology. He agrees with decision of no anticoagulation at this time. 1424: I discussed the patient's case with LETI Chavira Hospitalist. She will evaluate the patient for further management under Dr. Shin's service. Impression & Plan Atrial fibrillation with RVR, Parkinson's disease, Syncope Discharge Plan Visit Data Chief Complaint: Syncope Stated Complaint: DIZZY,PASSED OUT,SEIZURE LIKE SYMPTOMS ED Provider: Bill Iglesias Discharge Problem: Atrial fibrillation with RVR, Parkinson's disease, Syncope Patient Disposition: Being Evaluated by Hospitalist Discharge Instructions Interventions: ED Discharge Assessment Last Done: 08/20/19 17:27 Discharge Problem: Syncope Qualifiers: Syncope type: unspecified Qualified Code(s): R55 - Syncope and collapse The scribe's documentation has been prepared under my direction and personally reviewed by me in its entirety. I confirm that the note above accurately reflects all work, treatment, procedures, and medical decision making performed by me.
[2019-08-20] MEDS ORDERED: ACETAMINOPHEN 325 MG TAB PO PRN (17:39)
[2019-08-20] MEDS ORDERED: ONDANSETRON INJ 2 MG/ML 2 ML VIAL IV PRN (17:39)
[2019-08-20] MEDS: CARBIDOPA/LEVODOPA 25/100MG TAB PO SCH (18:44)
[2019-08-20] MEDS: MIDODRINE HCL 2.5 MG TAB PO SCH (18:44)
[2019-08-20] MEDS: SODIUM CHLORIDE 0.9% 1000ML 1,000 ML IV SCH (18:44)
[2019-08-20] MEDS: POTASSIUM CHLORIDE 10 MEQ TABCR PO SCH (20:33)
[2019-08-20] MEDS: SENNA 8.6 MG TAB PO SCH (20:35)
[2019-08-20] MEDS ORDERED: CARBIDOPA/LEVODOPA 25/100MG TAB PO SCH (21:00)
[2019-08-20] MEDS ORDERED: DONEPEZIL HCL 10 MG TAB PO SCH (21:00)
[2019-08-20] MEDS ORDERED: clonazePAM 1 MG TAB PO SCH (21:00)
[2019-08-20] MEDS ORDERED: CHOLECALCIFEROL 1,000 UNITS TAB PO SCH (21:00)
[2019-08-20] MEDS ORDERED: OMEGA-3 (PURIFIED FISH OIL) 1 GM CAP PO SCH (21:00)
[2019-08-20] MEDS ORDERED: ESCITALOPRAM OXALATE 10 MG TAB PO SCH (21:00)
[2019-08-21] MEDS: SODIUM CHLORIDE 0.9% 1000ML 1,000 ML IV SCH (03:02)
[2019-08-21 04:29] LABS: Hematocrit (blood only) 34.6 % (42-52); Hemoglobin 11.4 g/dL (14.0-18.0); Mean Corpuscular Hemoglobin 30.9 pg (25-34); Mean Corpuscular Hgb Conc 32.9 g/dL (32-36); Mean Corpuscular Volume 93.8 fL (80-100); Mean Platelet Volume 10.3 fL (7.4-10.4); Platelet Count 172 K/uL (130-400); RDW Standard Deviation 48.2 fL (36.4-46.3); Red Blood Count 3.69 M/uL (4.7-6.1); White Blood Count 6.01 K/uL (4.8-10.8)
[2019-08-21 04:48] LABS: BUN Creatinine Ratio 23.9 (10-20); Calcium 8.5 mg/dl (8.5-10.1); Creatinine Clr Calc Pharmacy 83.8 ml/min; Est GFR (African American) 99.4; Est GFR (Non-African American) 85.7; Potassium 3.8 mmol/L (3.5-5.1)
[2019-08-21 04:54] LABS: Albumin Globulin Ratio 1.2 (0.9-2); Bilirubin,Total 1.1 mg/dl (0.2-1); Globulin 2.6 gm/dl (2.5-4.0); Total Protein 5.6 gm/dl (6.4-8.2); Troponin I 0.036 ng/ml (0-0.045)
[2019-08-21] MEDS: MIDODRINE HCL 2.5 MG TAB PO SCH (05:37)
[2019-08-21] MEDS ORDERED: LEVOTHYROXINE SODIUM 50 MCG TABLET PO SCH (06:30)
[2019-08-21] MEDS: CARBIDOPA/LEVODOPA 25/100MG TAB PO SCH (08:41)
[2019-08-21] MEDS: POTASSIUM CHLORIDE 10 MEQ TABCR PO SCH (08:42)
[2019-08-21] MEDS: SENNA 8.6 MG TAB PO SCH (08:42)
[2019-08-21] MEDS ORDERED: ATORVASTATIN 20 MG TAB PO SCH (09:00)
[2019-08-21] MEDS ORDERED: MULTIVITAMIN TAB PO SCH (09:00)
[2019-08-21] MEDS ORDERED: POLYETHYLENE (MIRALAX) 17 GM PACK PO SCH (09:00)
[2019-08-21] MEDS ORDERED: FLUDROCORTISONE ACETATE 0.1 MG TAB PO SCH (09:00)
--- NOTE | 2019-08-21 11:01 | Discharge Summary ---
Date of Service August 21, 2019 Admission HPI Per Admitting Provider This is a 79-year-old male with past medical history of Parkinson's disease, BPH with lower urinary symptoms, and history of basal cell carcinoma who presents today with acute onset of syncopal episode. The patient notes that he was at home earlier this morning when he got up from his chair, took 2 steps and fell to the ground. He reports that he did not feel feel himself all morning. He denies any specific chest pain, palpitations, shortness of breath. Patient notes that when he fell he did hit his head, denies any LOC, denies any other trauma or injury. He denies any headache or dizziness. Patient notes he does not use any assistive devices with ambulation although his gait is somewhat "shaky". She notes that he has been known to have orthostatic hypotension in the past, currently is taking midodrine and fludrocortisone on a routine basis. Patient reports he ate breakfast, was drinking fluids this morning without difficulty. Patient notes that throughout his life he has experienced paroxysma l A. fib. He is not on any rate controlling agents nor anticoagulation. When he presented to the ER he was in A. fib with heart rate fluctuating between 111-140. During the ER course patient was scheduled to have a Cardizem drip on, however converted on his own without any intervention. CT of the head is negative, CTA for possible PE is also negative. Cardiology discussed with ER attending regarding needs for possible heparin drip with A. fib with RVR but no need for anticoagulation as the patient self converted, likely short timeframe of being in A. fib. Admission Exam Per Admitting Provider General: awake, alert, no apparent distress Head: Normocephalic, atraumatic ENT: PERRL, EOMI, no pharyngeal exudate, mucous membranes moist Chest: Clear to auscultation, on room air, no adventitious breath sounds Cardiac: Regular rate and rhythm, no murmur, no JVD, normal peripheral pulses, good capillary refill Abdominal: NABS x 4 quadrants, soft, nontender to palpation, no rebound, guarding or tenderness Extremities: Normal inspection, no peripheral edema or erythema, calfs nontender to palpation Psych: Normal mood, + somewhat flat affect Neuro: AAO x 3, strength intact bilaterally and related 5/5, no motor deficits, speech is clear, no peripheral sensory deficits Skin: no rash or erythema Principal Diagnosis syncope rapid Afib orthostatic hypotension parkinson disease Discharge Exam Abnormal Exam: none Constitutional: No distress. HENT: Mouth/Throat: Oropharynx is clear and moist. Eyes: Conjunctivae are normal. No scleral icterus. Cardiovascular: Normal RRR and normal heart sounds. No murmur heard. no gallop and no friction rub. Pulmonary/Chest: Effort normal and breath sounds normal. No respiratory distress. no wheezing no rales. Abdominal: Soft. Bowel sounds are normal. no distension. There is no tenderness. Musculoskeletal: no deformity. Neurological: alert. Psychiatric: Mood, affect and judgment normal. Discharge Data Allergies Allergy/AdvReac Type Severity Reaction Status Date / Time No Known Allergies Allergy Verified 08/20/19 15:19 Consultations none Ordered Studies CT head/brain wo: There is no hemorrhage, mass effect, or evidence of acute territorial ischemia by CT criteria. CXR: No active disease in the chest. CTA chest: No evidence for pulmonary embolus. lungs clear WBC=6 hgb=11.4 yph=440 coags normal creat=0.81 BUN=19 LFTs normal npfich=825 TSH=1.4 prolactin=5.68 UA: no WBC or RBC influenza neg Hospital Course (1) Atrial fibrillation with RVR: 79yo WM with known Parkinson's disease and orthostasis on Midodrine 5mg tid and Florinef 0.1mg daily p/w acute syncope and found to be in rapid Afib which he has never had before. He self converted and therefore did not require any intervention CHADS-VASc score is 2 serial cardiac enzymes were normal ECHO as OP (bc it looks like it was cancelled here) we will check with cardiology dept and if indeed not done, will advise pt to get OP ECHO. pt will see new OP blacksmith apprentice. they will disc treatment for orthostatic hypoten and benefits/risks of AC in this patient. for now the benefits do not appear to outweight risks so will not Rx for now. pt advised to limit his caffeine intake (2) Syncope: -probably due to rapid afib exacerbating his orthostatic hypotension -Continue fludrocortisone -increase midodrine from 5mg tid to 10mg tid for better [place] control (3) Parkinson's disease: -Continue donepezil and Sinemet -Walks without assistive devices, PT/OT consults, from home, lives with (4) Neurogenic bladder: (5) Prostatic hypertrophy: -Increased urinary frequency, UA for any signs of infectious etiology (6) DVT prophylaxis: -Teds CODE STATUS: Full code Disposition: Patient from home, lives with DC to home OP blacksmith apprentice appt. already had name of blacksmith apprentice they wanted to see Total Time Total Time Spent Total Time Spent (In Minutes): 50 minutes (pt and had a LOT of questions) Discharge Plan Discharge Items Patient Disposition: Home - Self-Care Reason For Visit: FALL, AFIB RVR Discharge Diagnosis: syncope rapid Atrial Fibrillation episode Condition on Discharge: Good Activity: Resume your previous activity Non-emergency contact: Primary Care Provider and Food Processing Chemist Call non-emergency contact if: your symptoms worsen Follow-up/Referrals: Perez Wu MD [Physician] - (call FridayAug 23 and make NEW pt appointment) Jon Bal Jr, [Primary Care Provider] - Diet: Regular Diet Comment: limited caffeine intake Addtl Attending Provider Instructions: Pending Studies at Discharge: No Stand-Alone Forms: My [facility] Medications and DC Order Prescriptions: Continued cholecalciferol (vitamin D3) [Vitamin D3] 2,000 unit capsule 2,000 unit PO HS RF: 0 clonazepam 1 mg tablet 2 mg PO HS Qty: 45 RF: 0 donepezil [Aricept] 10 mg tablet 10 mg PO HS RF: 0 atorvastatin [Lipitor] 20 mg tablet 20 mg PO QAM RF: 0 polyethylene glycol 3350 [Miralax] 17 gram/dose powder 8.5 gm PO DAILY PRN (Reason: Constipation) RF: 0 multivitamin Tablet 1 tab PO QAM RF: 0 sennosides [senna] 8.6 mg Tablet 0 mg PO BID RF: 0 potassium chloride 10 mEq capsule, extended release 10 meq PO BID RF: 0 levothyroxine [Synthroid] 50 mcg tablet 50 mcg PO QAM RF: 0 fludrocortisone 0.1 mg tablet 0.1 mg PO QAM RF: 0 escitalopram oxalate [Lexapro] 10 mg tablet 10 mg PO HS RF: 0 omega 3-tvw-eap-fish oil [Fish Oil] 1,000 mg (120 mg-180 mg) Capsule 1 cap PO HS RF: 0 melatonin 10 mg Tablet 10 mg PO HS RF: 0 Linzess 290 mcg capsule 290 mcg PO QAM RF: 0 carbidopa-levodopa 25-100 mg tablet 1 tab PO HS RF: 0 carbidopa-levodopa [Sinemet] 25-100 mg tablet 2 tab PO TID RF: 0 Changed midodrine 5 mg tablet 10 mg PO TID Qty: 180 RF: 1 Discharge Orders: Discharge Order (Routine); Ordered 08/21/19 Ordered By: Maycol Garvin Admission Data Admit Date/Time: 08/20/19 15:54 Attending Provider: Maycol Garvin Admit Provider: Endy Shin Primary Care Provider: Jon Bal Jr Other Providers: Endy Shin Other Interventions: Discharge Summary Assessment (RN) Last Done: 08/21/19 11:00 DC Date/Time DO NOT enter until pt leaves facility: 08/21/19 12:09
== END 2019-08-21 12:09 | disposition home or self-care (01) | DRG 310 ==
LOC: ED 11:47 → 2N 15:54 → SUATTDRO 15:54 → 2N 17:27

== ENCOUNTER 2020-12-05 11:25 | Observation (INO) ==
--- NOTE | 2020-12-05 12:04 | Emergency Department Note ---
Impression & Plan Pneumonia, Hypocalcemia, Hypomagnesemia, Hypoxemia ED Provider Note NAME: BRODY NUNEZ AGE: 80 SEX: M : 1940 ARRIVES VIA: Walk-In INFORMANT: [Patient][, ] ED PROVIDER(S): [Eric Valencia MD] Chief Complaint: Shortness of breath, weakness HPI: Patient was seen yesterday for a fall but this morning the patient's family member had checked his pulse ox which is 8384% the patient was recently diagnosed with a pneumonia and asked yesterday started on doxycycline which the patient took today. Patient has had a dry nonproductive cough. Patient was a former smoker many years ago in high school. Patient does have chronic left lower extremity swelling but no history of DVT or PE. The patient denies any recent travel. The patient has had some increasing weakness and does have a history of Parkinson's. PCP Dr. Bal and does follow with a movement disorder specialist at the [facility]. Patient denies any chest pains abdominal pain nausea or vomiting. Apparently after returning home last evening he was having difficulty with walking secondary to weakness. Patient was seen yesterday for a fall which point he had blood work and imaging completed which showed a white count of 10 hemoglobin of 13. The patient's kidney function was unremarkable. Troponin not detectable. Patient had CT of the chest and CT abdomen pelvis showed mild pulmonary edema and small pleural effusions. No acute fractures. Patient may have had a subtle pneumonia seen on chest x-ray. Head CT negative. And x-ray was also negative. ROS: See HPI for pertinent positives and negatives. A total of 10 systems were reviewed and otherwise negative. Past medical history: See below Surgical history: See below Social history: See below Physical Exam: GENERAL: Tired in appearance. NAD, non-toxic. EYE EXAM: Normal conjunctiva. PERRL, no anisocoria and EOM's grossly intact w/o pain. NECK: Supple, no nuchal rigidity, no adenopathy, non-tender. No signs of meningismus. LUNGS: Bibasilar crackles. Normal chest wall mechanics. HEART: NSR, no MRG. ABDOMEN: Abdomen soft, non-tender, normo-active bowel sounds, no masses, no rebound or guarding. BACK: No CVA TTP. SKIN: No rashes and no bruising. UPPER EXTREMITIES: Upper extremities are grossly normal. LOWER EXTREMITIES: Grossly normal, no edema. NEURO EXAM: A&O x3, cranial nerves II-XII grossly intact, normal speech, moves all 4 extremities on command w/o issue. Differential diagnoses: Reactive airway disease, pneumonia, pneumothorax, COPD, CHF, infections, cardiac ischemia, pulmonary embolism, musculoskeletal, gastrointestinal, as well as other pathologies. Course: Patient was seen and evaluated the bedside. Full history physical exam was performed. EKG: Indication: Weakness Sinus, rate of 68, normal intervals, normal axis, no obvious ST changes or T WI Imaging Studies: Radiology results as stated below per my review in the radiologist's interpretation: XR chest 1V portable CLINICAL HISTORY: SEPSIS COMPARISON STUDY: 12/04/2020 FINDINGS: The heart is the upper limits of normal in size. There is no lobar consolidation. There is no failure. There is mild elevation left hemidiaphragm. There are left basilar opacities, atelectatic versus infectious/inflammatory. The previously queried left suprahilar airspace opacities are not visualized with certainty. IMPRESSION: 1. Subtle left basilar opacities, atelectatic versus infectious/inflammatory ACT 112: Negative or not required by law. Electronically signed by: Keith Hoover M.D. 12/05/2020 12:57 PM Dictated: 12/05/20 1255 Transcribed: 12/05/20 1255 Cardiac monitoring: An order was placed for continuous cardiac monitoring. The monitor shows a rate of 66 with sinus rhythm. MDM: Patient did present with concern for weakness and hypoxia at home. Blood work is obtained along with antibiotics and IV fluids. Initially 2 L ordered but started with 1 L as the patient was seen to have some mild pulmonary edema and pleural effusions yesterday but the patient did present with a BP of 90/50. Patient has a normal white count with mild anemia. The patient does have low calcium magnesium with slight elevation in bilirubin. The patient does not have any right upper quadrant pain. Troponin is undetectable. She was ordered his home dose of Sinemet. Chest x-ray does show left basilar opacities atelectatic versus infectious or inflammatory. The patient did receive the antibiotics. Patient does have an elevated curb score given the patient's age and initial hypotension. Believe the patient would benefit from inpatient treatment given the patient's hypoxia. I did speak to the on-call hospitalist and the patient was admitted to the medicine service by Dr. Doe. 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) Family History Unknown Alzheimer disease Sister Diabetes Cancer Other Family history non-contributory Social History Smoking Status: Never smoker Hx Alcohol Use: No Hx Substance Use: No Preferred Language: Cypriot Communication Ability: Effective Ship Officer Required: No Beliefs That Will Affect Care: None marital status: Current Living Situation: Spouse current occupational status: retired Feels Safe at Home: Yes Assistive Devices: None Allergies Allergies Allergy/AdvReac Type Severity Reaction Status Date / Time No Known Drug Allergies Allergy Unknown Verified 12/04/20 17:49 diphenhydramine AdvReac Unknown Verified 12/05/20 12:59 [From Benadryl] Home Meds Home Medications Medication Instructions Recorded Confirmed atorvastatin 20 mg tablet 20 mg PO QAM tab 05/11/19 12/05/20 cholecalciferol (vitamin D3) 50 2,000 unit PO HS cap 05/11/19 12/05/20 mcg (2,000 unit) capsule clonazepam 1 mg tablet 2 mg PO HS #45 tab 05/11/19 12/05/20 donepezil 10 mg tablet 10 mg PO HS tab 05/11/19 12/05/20 Linzess 290 mcg PO QPM 06/30/19 12/05/20 escitalopram oxalate [Lexapro] 10 mg PO HS 06/30/19 12/05/20 fludrocortisone 0.1 mg PO QAM 06/30/19 12/05/20 levothyroxine [Synthroid] 50 mcg PO QAM 06/30/19 12/05/20 melatonin 10 mg PO HS 06/30/19 12/05/20 multivitamin 1 tab PO QAM 06/30/19 12/05/20 potassium chloride 10 meq PO BID 06/30/19 12/05/20 polyethylene glycol 3350 17 8.5 gm PO DAILY PRN 07/14/19 12/05/20 gram/dose oral powder carbidopa-levodopa 1 tab PO HS 08/20/19 12/05/20 carbidopa-levodopa [Sinemet] 2 tab PO BID 08/20/19 12/05/20 sennosides 8.6 mg tablet 17.2 mg PO BID tab 11/10/19 12/05/20 carbidopa-levodopa 2.5 tab PO 0900 12/04/20 12/05/20 cetirizine [Zyrtec] 10 mg PO DAILY 12/04/20 12/05/20 clonidine HCl 0.1 mg PO HS 12/04/20 12/05/20 metoprolol succinate 25 mg PO DAILY 12/04/20 12/05/20 ibuprofen 400 mg PO Q6H PRN 12/05/20 12/05/20 Previous Rx's Medication Instructions Recorded ketoconazole 2 % topical cream 1 applic TOP BID #60 g 06/12/20 doxycycline hyclate 100 mg PO BID 10 Days #20 tab 12/04/20 oxycodone 5 mg PO Q6H PRN #15 tab 12/04/20 Results & Data (ED) Vital Signs Vital Signs - 24 hr 12/05/20 11:28 12/05/20 11:29 12/05/20 12:24 Temperature 36.7 C Temperature Source Temporal Artery Scan Pulse Rate 66 68 Pulse Rate from SpO2 Sensor 68 Respiratory Rate 18 17 Respiratory Effort / Characteristics Respiratory Depth Respiratory Pattern Blood Pressure 90/48 L Blood Pressure Mean 62 Pulse Oximetry 94 95 90 Oxygen Delivery Method Room Air Room Air Sepsis Recent Fever Within 48 Hours No Sepsis New/Unexplained Change in Mental Status No Sepsis Action Taken by Nursing No Action Required 12/05/20 12:30 12/05/20 12:36 12/05/20 13:00 Temperature Temperature Source Pulse Rate 69 Pulse Rate from SpO2 Sensor 80 73 66 Respiratory Rate 17 Respiratory Effort / Characteristics Respiratory Depth Respiratory Pattern Blood Pressure 132/68 140/78 Blood Pressure Mean 89 98 Pulse Oximetry 91 92 94 Oxygen Delivery Method Sepsis Recent Fever Within 48 Hours Sepsis New/Unexplained Change in Mental Status Sepsis Action Taken by Nursing 12/05/20 13:01 12/05/20 13:09 12/05/20 13:17 Temperature Temperature Source Pulse Rate Pulse Rate from SpO2 Sensor 69 Respiratory Rate 18 Respiratory Effort / Characteristics Non-Labored Spontaneous Respiratory Depth Normal Respiratory Pattern Regular Blood Pressure Blood Pressure Mean Pulse Oximetry 95 95 95 Oxygen Delivery Method Room Air Room Air Sepsis Recent Fever Within 48 Hours Sepsis New/Unexplained Change in Mental Status Sepsis Action Taken by Nursing 12/05/20 13:30 Temperature Temperature Source Pulse Rate 69 Pulse Rate from SpO2 Sensor 73 Respiratory Rate 17 Respiratory Effort / Characteristics Respiratory Depth Respiratory Pattern Blood Pressure Blood Pressure Mean Pulse Oximetry 95 Oxygen Delivery Method Sepsis Recent Fever Within 48 Hours Sepsis New/Unexplained Change in Mental Status Sepsis Action Taken by Alf Medications Current Medication List: was personally reviewed by me Laboratory Data Attestation: I reviewed the patient's lab results. Result diagrams: 12/05/20 12:54 12/05/20 12:54 Lab Results 12/05/20 12/05/20 12/05/20 Range/Units 12:54 12:54 12:54 WBC 9.46 (4.8-10.8) K/uL RBC 3.76 L (4.7-6.1) M/uL Hgb 11.6 L (14.0-18.0) g/dL Hct 34.7 L (42-52) % MCV 92.3 (80-100) fL MCH 30.9 (25-34) pg MCHC 33.4 (32-36) g/dL RDW Std Deviation 46.0 (36.4-46.3) fL RDW Coeff of Imelda 13.6 (11.5-14.5) % Plt Count 148 (130-400) K/uL MPV 10.9 H (7.4-10.4) fL Immature Gran % (Auto) 0.2 % Neut % (Auto) 79.5 % Lymph % (Auto) 9.1 % Lyman % (Auto) 6.8 % Eos % (Auto) 4.1 % Baso % (Auto) 0.3 % Neut # (Auto) 7.52 H (1.4-6.5) K/uL Lymph # (Auto) 0.86 L (1.2-3.4) K/uL Lyman # (Auto) 0.64 H (0.11-0.59) K/uL Eos # (Auto) 0.39 (0-0.5) K/uL Baso # (Auto) 0.03 (0-0.2) K/uL Immature Gran # (Auto) 0.02 (0.00-0.02) K/uL PT 11.7 (9.0-12.0) Seconds INR 1.2 H (0.9-1.1) APTT 27.0 (21.0-31.0) Seconds PTT Ratio 1.0 Sodium 137 (136-145) mmol/L Potassium 3.6 (3.5-5.1) mmol/L Chloride 105 (98-107) mmol/L Carbon Dioxide 27 (21-32) mmol/L Anion Gap 6.0 (3-11) BUN 19 H (7-18) mg/dl Creatinine 1.13 (0.6-1.4) mg/dl Est Cr Clr Drug Dosing 59.1 ml/min Est GFR ( Amer) 71.8 Est GFR (Non-Af Amer) 61.9 BUN/Creatinine Ratio 17.2 (10-20) Glucose 123 H (70-99) mg/dl Lactate (0.4-2.0) mmol/L Calcium 8.1 L (8.5-10.1) mg/dl Magnesium 1.7 L (1.8-2.4) mg/dl Total Bilirubin 1.9 H D (0.2-1) mg/dl AST 22 (15-37) U/L ALT 9 L (12-78) U/L Alkaline Phosphatase 73 (45-117) U/L Troponin I < 0.015 (0-0.045) ng/ml Total Protein 6.2 L (6.4-8.2) gm/dl Albumin 3.0 L (3.4-5.0) gm/dl Globulin 3.2 (2.5-4.0) gm/dl Albumin/Globulin Ratio 1.0 (0.9-2) Procalcitonin (0-0.5) ng/ml COVID-19 Eval Order SARS-CoV-2 (PCR) (Negative) Influenza Type A (PCR) (Neg) Influenza Type B (PCR) (Neg) RSV (RT-PCR) (Neg) 12/05/20 12/05/20 12/05/20 Range/Units 12:54 13:41 Unknown WBC (4.8-10.8) K/uL RBC (4.7-6.1) M/uL Hgb (14.0-18.0) g/dL Hct (42-52) % MCV (80-100) fL MCH (25-34) pg MCHC (32-36) g/dL RDW Std Deviation (36.4-46.3) fL RDW Coeff of Imelda (11.5-14.5) % Plt Count (130-400) K/uL MPV (7.4-10.4) fL Immature Gran % (Auto) % Neut % (Auto) % Lymph % (Auto) % Lyman % (Auto) % Eos % (Auto) % Baso % (Auto) % Neut # (Auto) (1.4-6.5) K/uL Lymph # (Auto) (1.2-3.4) K/uL Lyman # (Auto) (0.11-0.59) K/uL Eos # (Auto) (0-0.5) K/uL Baso # (Auto) (0-0.2) K/uL Immature Gran # (Auto) (0.00-0.02) K/uL PT (9.0-12.0) Seconds INR (0.9-1.1) APTT (21.0-31.0) Seconds PTT Ratio Sodium (136-145) mmol/L Potassium (3.5-5.1) mmol/L Chloride (98-107) mmol/L Carbon Dioxide (21-32) mmol/L Anion Gap (3-11) BUN (7-18) mg/dl Creatinine (0.6-1.4) mg/dl Est Cr Clr Drug Dosing ml/min Est GFR ( Amer) Est GFR (Non-Af Amer) BUN/Creatinine Ratio (10-20) Glucose (70-99) mg/dl Lactate 1.7 (0.4-2.0) mmol/L Calcium (8.5-10.1) mg/dl Magnesium (1.8-2.4) mg/dl Total Bilirubin (0.2-1) mg/dl AST (15-37) U/L ALT (12-78) U/L Alkaline Phosphatase (45-117) U/L Troponin I (0-0.045) ng/ml Total Protein (6.4-8.2) gm/dl Albumin (3.4-5.0) gm/dl Globulin (2.5-4.0) gm/dl Albumin/Globulin Ratio (0.9-2) Procalcitonin 0.29 (0-0.5) ng/ml COVID-19 Eval Order CovFluRsv at [facility] SARS-CoV-2 (PCR) (Negative) Influenza Type A (PCR) (Neg) Influenza Type B (PCR) (Neg) RSV (RT-PCR) (Neg) 12/05/20 Range/Units Unknown WBC (4.8-10.8) K/uL RBC (4.7-6.1) M/uL Hgb (14.0-18.0) g/dL Hct (42-52) % MCV (80-100) fL MCH (25-34) pg MCHC (32-36) g/dL RDW Std Deviation (36.4-46.3) fL RDW Coeff of Imelda (11.5-14.5) % Plt Count (130-400) K/uL MPV (7.4-10.4) fL Immature Gran % (Auto) % Neut % (Auto) % Lymph % (Auto) % Lyman % (Auto) % Eos % (Auto) % Baso % (Auto) % Neut # (Auto) (1.4-6.5) K/uL Lymph # (Auto) (1.2-3.4) K/uL Lyman # (Auto) (0.11-0.59) K/uL Eos # (Auto) (0-0.5) K/uL Baso # (Auto) (0-0.2) K/uL Immature Gran # (Auto) (0.00-0.02) K/uL PT (9.0-12.0) Seconds INR (0.9-1.1) APTT (21.0-31.0) Seconds PTT Ratio Sodium (136-145) mmol/L Potassium (3.5-5.1) mmol/L Chloride (98-107) mmol/L Carbon Dioxide (21-32) mmol/L Anion Gap (3-11) BUN (7-18) mg/dl Creatinine (0.6-1.4) mg/dl Est Cr Clr Drug Dosing ml/min Est GFR ( Amer) Est GFR (Non-Af Amer) BUN/Creatinine Ratio (10-20) Glucose (70-99) mg/dl Lactate (0.4-2.0) mmol/L Calcium (8.5-10.1) mg/dl Magnesium (1.8-2.4) mg/dl Total Bilirubin (0.2-1) mg/dl AST (15-37) U/L ALT (12-78) U/L Alkaline Phosphatase (45-117) U/L Troponin I (0-0.045) ng/ml Total Protein (6.4-8.2) gm/dl Albumin (3.4-5.0) gm/dl Globulin (2.5-4.0) gm/dl Albumin/Globulin Ratio (0.9-2) Procalcitonin (0-0.5) ng/ml COVID-19 Eval Order SARS-CoV-2 (PCR) NEGATIVE (Negative) Influenza Type A (PCR) Negative (Neg) Influenza Type B (PCR) Negative (Neg) RSV (RT-PCR) Negative (Neg) Administered Medications Magnesium Sulfate/Dextrose (Magnesium Sulfate / D5w) 1 gm in 100 mls @ 100 mls/hr IV NOW STA Stop: 12/05/20 15:17 Last Admin: 12/05/20 14:28 Dose: 100 mls/hr Documented by: [id number] Discontinued Medications Carbidopa/Levodopa (Carbidopa/Levodopa 25/100mg Tab) 2 tab PO NOW STA Stop: 12/05/20 13:21 Last Admin: 12/05/20 13:53 Dose: 2 tab Documented by: [id number] Sodium Chloride (Nss 1000ml) 1,000 mls @ 999 mls/hr IV .Q1H1M GILLES Stop: 12/05/20 13:29 Last Infusion: 12/05/20 14:30 Dose: 0 mls/hr Documented by: [id number] Admin: 12/05/20 13:07 Dose: 999 mls/hr Documented by: [id number] Ceftriaxone Sodium (Rocephin) 2,000 mg in 70 mls @ 140 mls/hr IV NOW STA Stop: 12/05/20 12:57 Last Infusion: 12/05/20 14:30 Dose: 0 mls/hr Documented by: [id number] Admin: 12/05/20 13:47 Dose: 140 mls/hr Documented by: [id number] Calcium Gluconate () 1,000 mg in 60 mls @ 240 mls/hr IV NOW STA Stop: 12/05/20 14:31 Last Infusion: 12/05/20 14:47 Dose: 0 mls/hr Documented by: [id number] Admin: 12/05/20 14:29 Dose: 240 mls/hr Documented by: [id number] Discharge Plan Visit Data Chief Complaint: Respiratory Distress Stated Complaint: HYPOXEMIA ED Provider: Eric Valencia Discharge Problem: Pneumonia, Hypocalcemia, Hypomagnesemia, Hypoxemia Forms Stand Alone Forms: [facility] [employer] Prescriptions Prescriptions: No Action cholecalciferol (vitamin D3) [Vitamin D3] 2,000 unit capsule 2,000 unit PO HS RF: 0 clonazepam 1 mg tablet 2 mg PO HS Qty: 45 RF: 0 donepezil [Aricept] 10 mg tablet 10 mg PO HS RF: 0 atorvastatin [Lipitor] 20 mg tablet 20 mg PO QAM RF: 0 polyethylene glycol 3350 [Miralax] 17 gram/dose powder 8.5 gm PO DAILY PRN (Reason: Constipation) RF: 0 ketoconazole 2 % cream 1 applic TOP BID Qty: 60 RF: 2 multivitamin Tablet 1 tab PO QAM RF: 0 potassium chloride 10 mEq capsule, extended release 10 meq PO BID RF: 0 levothyroxine [Synthroid] 50 mcg tablet 50 mcg PO QAM RF: 0 fludrocortisone 0.1 mg tablet 0.1 mg PO QAM RF: 0 escitalopram oxalate [Lexapro] 10 mg tablet 10 mg PO HS RF: 0 melatonin 10 mg Tablet 10 mg PO HS RF: 0 Linzess 290 mcg capsule 290 mcg PO QPM RF: 0 sennosides [senna] 8.6 mg tablet 17.2 mg PO BID RF: 0 carbidopa-levodopa 25-100 mg tablet 1 tab PO HS RF: 0 carbidopa-levodopa [Sinemet] 25-100 mg tablet 2 tab PO BID RF: 0 carbidopa-levodopa 25-100 mg tablet 2.5 tab PO 0900 RF: 0 clonidine HCl 0.1 mg tablet 0.1 mg PO HS RF: 0 cetirizine [Zyrtec] 10 mg Tablet 10 mg PO DAILY RF: 0 metoprolol succinate 25 mg tablet extended release 24 hr 25 mg PO DAILY RF: 0 doxycycline hyclate 100 mg tablet 100 mg PO BID 10 Days Qty: 20 RF: 0 oxycodone 5 mg tablet 5 mg PO Q6H PRN (Reason: pain) Qty: 15 RF: 0 ibuprofen 200 mg Tablet 400 mg PO Q6H PRN (Reason: Fever Or Pain) RF: 0 Discharge Problem: Pneumonia Qualifiers: Pneumonia type: due to unspecified organism Laterality: left Lung location: lower lobe of lung Qualified Code(s): J18.9 - Pneumonia, unspecified organism
[2020-12-05] MEDS ORDERED: cefTRIAXone SODIUM 2,000 MG/70 ML BAG IV STA (12:28)
[2020-12-05] MEDS ORDERED: SODIUM CHLORIDE 0.9% 1000ML 1,000 ML IV SCH ×2 (12:30→13:29)
--- NOTE | 2020-12-05 12:58 | XRay Report ---
XR chest 1V portable CLINICAL HISTORY: SEPSIS COMPARISON STUDY: 12/04/2020 FINDINGS: The heart is the upper limits of normal in size. There is no lobar consolidation. There is no failure. There is mild elevation left hemidiaphragm. There are left basilar opacities, atelectatic versus infectious/inflammatory. The previously queried left suprahilar airspace opacities are not vi sualized with certainty. IMPRESSION: 1. Subtle left basilar opacities, atelectatic versus infectious/inflammatory ACT 112: Negative or not required by law. Electronically signed by: Keith Hoover M.D. 12/05/2020 12:57 PM
[2020-12-05 13:08] LABS: Basophils # (auto) 0.03 K/uL (0-0.2); Basophils % (auto) 0.3 %; Eosinophils # (auto) 0.39 K/uL (0-0.5); Eosinophils % (auto) 4.1 %; Hematocrit (blood only) 34.7 % (42-52); Hemoglobin 11.6 g/dL (14.0-18.0); Immature Granulocytes # (auto) 0.02 K/uL (0.00-0.02); Immature Granulocytes % (auto) 0.2 %; Lymphocytes # (auto) 0.86 K/uL (1.2-3.4); Lymphocytes % (auto) 9.1 %; Mean Corpuscular Hemoglobin 30.9 pg (25-34); Mean Corpuscular Hgb Conc 33.4 g/dL (32-36); Mean Corpuscular Volume 92.3 fL (80-100); Mean Platelet Volume 10.9 fL (7.4-10.4); Monocytes # (auto) 0.64 K/uL (0.11-0.59); Monocytes % (auto) 6.8 %; Neutrophils # (auto) 7.52 K/uL (1.4-6.5); Neutrophils % (auto) 79.5 %; Platelet Count 148 K/uL (130-400); RDW Coefficient of Variation 13.6 % (11.5-14.5); Red Blood Count 3.76 M/uL (4.7-6.1); White Blood Count 9.46 K/uL (4.8-10.8)
[2020-12-05 13:19] LABS: INR 1.2 (0.9-1.1); Prothrombin Time 11.7 Seconds (9.0-12.0)
[2020-12-05] MEDS ORDERED: CARBIDOPA/LEVODOPA 25/100MG TAB PO STA (13:20)
[2020-12-05 13:24] LABS: Alanine Aminotransferase 9 U/L (12-78); Aspartate Aminotransferase 22 U/L (15-37); BUN Creatinine Ratio 17.2 (10-20); Blood Urea Nitrogen 19 mg/dl (7-18); Calcium 8.1 mg/dl (8.5-10.1); Carbon Dioxide 27 mmol/L (21-32); Chloride 105 mmol/L (98-107); Creatinine Clr Calc Pharmacy 59.1 ml/min; Est GFR (African American) 71.8; Est GFR (Non-African American) 61.9; Glucose 123 mg/dl (70-99); Magnesium 1.7 mg/dl (1.8-2.4); Potassium 3.6 mmol/L (3.5-5.1); Sodium 137 mmol/L (136-145)
[2020-12-05 13:35] LABS: Alkaline Phosphatase 73 U/L (45-117); Bilirubin,Total 1.9 mg/dl (0.2-1); Globulin 3.2 gm/dl (2.5-4.0); Total Protein 6.2 gm/dl (6.4-8.2); Troponin I < 0.015 ng/ml (0-0.045)
[2020-12-05] MEDS ORDERED: CALCIUM GLUCONATE 1,000 MG/60 ML BAG IV STA (14:17)
[2020-12-05] MEDS ORDERED: MAGNESIUM SULFATE / D5W 1 GM/100 ML BAG IV STA (14:18)
[2020-12-05 14:21] LABS: Influenza A virus by PCR Negative (Neg); Influenza B virus by PCR Negative (Neg); RSV by PCR Negative (Neg); SARS CoV2 RNA(COVID-19) InHosp NEGATIVE (Negative)
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
--- NOTE | 2020-12-05 14:42 | Electrocardiogram Report ---
Test Reason : Blood Pressure : / mmHG Vent. Rate : 068 BPM Atrial Rate : 083 BPM P-R Int : 162 ms QRS Dur : 090 ms QT Int : 424 ms P-R-T Axes : 084 000 013 degrees QTc Int : 450 ms Poor data quality, interpretation may be adversely affected Sinus rhythm with marked sinus arrhythmia versus SA wneckebach or blocked PACS Otherwise normal ECG Confirmed by Compa Torres ([id number]) on 12/05/2020 2:41:44 PM Referred By: REFERRED SELF Confirmed By:Maurice Torres
[2020-12-05 15:02] LABS: Appearance Urine Clear (Clear); Bacteria Urine Automated Negative (Negative); Blood Urine Negative (Negative); Color Urine Dark Yellow; Glucose Urine UA Negative (Negative); Ketones Urine Trace (Negative); Leukocyte Esterase Urine Negative (Negative); Nitrite Urine Negative (Negative); Protein Urine Trace (Negative); RBC Urine Automated 0-4 /hpf (0-4); Specific Gravity Urine > 1.045 (1.000-1.030); Urobilinogen Urine Negative (Negative); pH Urine 5.5 (4.5-7.5)
[2020-12-05 15:04] LABS: Bilirubin Urine 1+ (Negative)
[2020-12-05] MEDS ORDERED: ACETAMINOPHEN 325 MG TAB PO PRN (16:19)
[2020-12-05] MEDS ORDERED: POLYETHYLENE (MIRALAX) 17 GM PACK PO PRN (16:19)
[2020-12-05] MEDS ORDERED: ALUMINUM/MAGNESIUM SUSP 30 ML UDC PO PRN (16:19)
[2020-12-05] MEDS ORDERED: LORazepam 0.5 MG TAB PO PRN (16:19)
[2020-12-05] MEDS ORDERED: ONDANSETRON INJ 2 MG/ML 2 ML VIAL IV PRN (16:19)
[2020-12-05] MEDS: CARBIDOPA/LEVODOPA 25/100MG TAB PO SCH (18:24)
[2020-12-05] MEDS ORDERED: AZITHROMYCIN 500 MG in DEXTROSE 5% 250 ML IV ONE (18:30)
[2020-12-05] MEDS ORDERED: ENOXAPARIN INJ 40 MG/0.4 ML SYR SQ SCH (19:00)
[2020-12-05] MEDS: POTASSIUM CHLORIDE 10 MEQ TABCR PO SCH (20:25)
[2020-12-05] MEDS: SENNA 8.6 MG TAB PO SCH (20:25)
[2020-12-05] MEDS ORDERED: DONEPEZIL HCL 10 MG TAB PO SCH (21:00)
[2020-12-05] MEDS ORDERED: CARBIDOPA/LEVODOPA 25/100MG TAB PO SCH (21:00)
[2020-12-05] MEDS ORDERED: ESCITALOPRAM OXALATE 10 MG TAB PO SCH (21:00)
[2020-12-06] MEDS ORDERED: LEVOTHYROXINE SODIUM 50 MCG TABLET PO SCH (06:30)
[2020-12-06 06:43] LABS: BUN Creatinine Ratio 21.5 (10-20); Calcium 8.1 mg/dl (8.5-10.1); Creatinine Clr Calc Pharmacy 71.9 ml/min; Est GFR (African American) 90.8; Est GFR (Non-African American) 78.4; Magnesium 1.9 mg/dl (1.8-2.4); Potassium 3.8 mmol/L (3.5-5.1)
[2020-12-06] MEDS: SENNA 8.6 MG TAB PO SCH (07:27)
[2020-12-06] MEDS: POTASSIUM CHLORIDE 10 MEQ TABCR PO SCH (07:28)
[2020-12-06] MEDS ORDERED: ATORVASTATIN 20 MG TAB PO SCH (09:00)
[2020-12-06] MEDS ORDERED: FLUDROCORTISONE ACETATE 0.1 MG TAB PO SCH (09:00)
[2020-12-06] MEDS ORDERED: METOPROLOL SUCC 25MG EXT REL TAB PO SCH (09:00)
[2020-12-06] MEDS ORDERED: LINACLOTIDE 145 MCG CAPSULE PO SCH (09:00)
[2020-12-06] MEDS ORDERED: CARBIDOPA/LEVODOPA 25/100MG TAB PO SCH (09:00)
[2020-12-06] MEDS ORDERED: CETIRIZINE HCL 10 MG TABLET PO SCH (09:00)
[2020-12-06] MEDS ORDERED: cefTRIAXone SODIUM 2,000 MG in DEXTROSE 5% 50 ML IV SCH (13:00)
[2020-12-06] MEDS: CARBIDOPA/LEVODOPA 25/100MG TAB PO SCH (13:17)
--- NOTE | 2020-12-06 16:23 | Discharge Summary ---
Date of Service December 06, 2020 Admission HPI Per Admitting Provider Patient presents with a return to ER visit after being checked out after a fall on 12/04. Reportedly this morning the patient was difficult to ambulate with extreme weakness and was found and hypoxic at home. With a ER visit on 12/04 was diagnosed with a slight left lower lobe pneumonia and was placed on doxycycline. Patient has had a dry nonproductive cough. Patient was a former smoker many years ago in high school and in the [place].. Patient does have chronic left lower extremity swelling but no history of DVT or PE. The patient denies any recent travel. The patient has had some increasing weakness and does have a history of Parkinson's. This patient does follow with a movement disorder specialist at the [facility]. Patient also takes many nocturnal medications which could influence his morning arousability including clonazepam and clonidine. Patient's family member who accompanies him also feels that the patient did not receive his typical daily Sinemet during his ER visit yesterday which compounded his movement disorder making it more challenging at home Patient was seen 12/04/2020 at which time serologies were unremarkable and the patient had CT of the chest and CT abdomen pelvis showed mild pulmonary edema and small pleural effusions. No acute fractures. Patient may have had a subtle pneumonia seen on chest x-ray. Subsequently was given doxycycline. Head CT negative. Principal Diagnosis LLL Pneumonia, Mild hypoxia, Recent fall with weakness Discharge Exam Constitutional WD/WN, vitals as above Eyes + anicteric sclerae and EOM intact bilaterally; no conjunctival abnormality ENMT no facial trauma Neck trachea midline, no thyromegaly neck nontender Respiratory Auscultation: + crackles (at left base); no wheezes Cardiovascular RRR, no murmur, no edema Chest (Breasts) Chest: normal inspection of chest Gastrointestinal (Abdomen) normal bowel sounds, soft, nontender, no hepatosplenomegaly Musculoskeletal Extremities: extremities normal to inspection; no cyanosis and no clubbing Skin no rashes, warm and dry Neurologic moves all extremities and awake; no focal motor deficits and not confused Masked facies Psychiatric A+Ox3, euthymic affect Lymphatic no lymphedema Discharge Data Allergies Allergy/AdvReac Type Severity Reaction Status Date / Time No Known Drug Allergies Allergy Unknown Verified 12/04/20 17:49 diphenhydramine AdvReac Unknown Verified 12/05/20 12:59 [From Benadryl] Consultations 12/05/20 14:37 ED Decision to Admit Stat Ordered Studies Chest x-ray Hospital Course (1) Pneumonia: Chest x-ray 12/05/2020 shows subtle left basilar opacity atelectasis versus infectious inflammatory. Given the patient's clinical functional decline may be considered metabolic encephalopathy will be treated for any associated pneumonia with Rocephin and azithromycin were given and he is doing much better-we will send home with 5 more days of cefdinir and 4 more days of azithromycin Blood cultures obtained-no growth to date Did not require any supplemental O2 and was given incentive spirometry Stable for discharge home Should have follow-up chest x-ray in 2 to 3 weeks to ensure resolution of pneumonia (2) Hypoxia: Brief period of 87% on room air in the ER but this improved and he was 96% on room air on the day of discharge. Likely secondary to atelectasis versus pneumonia (3) Parkinson's disease: continue the patient's Sinemet as written Patient also takes Florinef for postural hypotension this will be maintained (4) PAF (paroxysmal atrial fibrillation): Patient has a history of such Had a brief run of atrial tachycardia here but otherwise PACs and sinus rhythm Continue metoprolol and he is not anticoagulated (5) Depression: Continue Lexapro and clonazepam (6) Memory loss: Continue donepezil (7) Chronic constipation: -Continue Linzess along with daily Senokot and as needed MiraLAX (8) Fall: With recent fall down 13 wooden stairs on 12/04 CT scan of head, cervical spine, chest, abdomen/pelvis, and left hand all obtained without fractures or acute injuries He is doing quite well with this Only has some minor lower back pain for which she is taking ibuprofen and Tylenol as needed Physical and 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 Therapy consultations were obtained here and he is stable for discharge to home without home health (9) DVT prophylaxis: Lovenox to be used for DVT prevention Disposition-stable for discharge home Total Time Total Time Spent Total Time Spent (In Minutes): 35 minutes Total Time Includes: Examination of the Patient, Discharge Planning and Medication Reconciliation Discharge Plan Discharge Items Patient Disposition: Home - Self-Care Reason For Visit: METABOLIC ENCEPHALOPATHY, PNEUMONIA, Hypoxia Discharge Diagnosis: Pneumonia, Hypoxia-resolved, Recent Fall Condition on Discharge: Good Activity: Resume your previous activity Non-emergency contact: Primary Care Provider Call non-emergency contact if: you have any medication questions, your symptoms worsen and your pain is not controlled Follow-up/Referrals: Jon Bal Jr, [Primary Care Provider] - (Follow up within 1-2 weeks.) Diet: Regular Addtl Attending Provider Instructions: You were admitted with pneumonia and low oxygen levels. Your oxygen level improved and you were treated with IV antibiotics. Please finish out the course of azithromycin 250mg once daily x 4 more days and cefdinir 300mg twice daily x 5 more days. You should have a repeat chest xray in 2-3 weeks to ensure resolution of your pneumonia. Pending Studies at Discharge: Yes Stand-Alone Forms: [facility] Medications and DC Order Prescriptions: New acetaminophen 325 mg Tablet 650 mg PO Q4H PRN (Reason: pain) Qty: 30 RF: 0 azithromycin 250 mg Tablet 250 mg PO DAILY@1800 Qty: 4 RF: 0 cefdinir 300 mg capsule 300 mg PO BID 5 Days Qty: 10 RF: 0 Continued cholecalciferol (vitamin D3) [Vitamin D3] 2,000 unit capsule 2,000 unit PO HS RF: 0 clonazepam 1 mg tablet 2 mg PO HS Qty: 45 RF: 0 donepezil [Aricept] 10 mg tablet 10 mg PO HS RF: 0 atorvastatin [Lipitor] 20 mg tablet 20 mg PO QAM RF: 0 polyethylene glycol 3350 [Miralax] 17 gram/dose powder 8.5 gm PO DAILY PRN (Reason: Constipation) RF: 0 ketoconazole 2 % cream 1 applic TOP BID Qty: 60 RF: 2 multivitamin Tablet 1 tab PO QAM RF: 0 potassium chloride 10 mEq capsule, extended release 10 meq PO BID RF: 0 levothyroxine [Synthroid] 50 mcg tablet 50 mcg PO QAM RF: 0 fludrocortisone 0.1 mg tablet 0.1 mg PO QAM RF: 0 escitalopram oxalate [Lexapro] 10 mg tablet 10 mg PO HS RF: 0 melatonin 10 mg Tablet 10 mg PO HS RF: 0 Linzess 290 mcg capsule 290 mcg PO QPM RF: 0 sennosides [senna] 8.6 mg tablet 17.2 mg PO BID RF: 0 carbidopa-levodopa 25-100 mg tablet 1 tab PO HS RF: 0 carbidopa-levodopa [Sinemet] 25-100 mg tablet 2 tab PO BID RF: 0 carbidopa-levodopa 25-100 mg tablet 2.5 tab PO 0900 RF: 0 clonidine HCl 0.1 mg tablet 0.1 mg PO HS RF: 0 cetirizine [Zyrtec] 10 mg Tablet 10 mg PO DAILY RF: 0 metoprolol succinate 25 mg tablet extended release 24 hr 25 mg PO DAILY RF: 0 ibuprofen 200 mg Tablet 400 mg PO Q6H PRN (Reason: Fever Or Pain) RF: 0 Discontinued doxycycline hyclate 100 mg tablet 100 mg PO BID 10 Days Qty: 20 RF: 0 oxycodone 5 mg tablet 5 mg PO Q6H PRN (Reason: pain) Qty: 15 RF: 0 Discharge Orders: Discharge Order (Routine); Ordered 12/06/20 Ordered By: Heidy Harrington Admission Data Admit Date/Time: 12/05/20 14:40 Attending Provider: Heidy Harrington Admit Provider: Rory Doe Primary Care Provider: Jon Bal Jr Other Providers: Rory Doe Other Interventions: Discharge Summary Assessment (RN) Last Done: 12/06/20 16:30 Coding Level of Care Code D/C Day Management >30 mins Diagnoses Pneumonia J18.9 Hypoxia R09.02 Parkinson's disease G20 PAF (paroxysmal atrial fibrillation) I48.0 Depression F32.9 Memory loss R41.3 Chronic constipation K59.09 Fall W19.XXXA Encounter type: initial encounter DVT prophylaxis Z29.9
[2020-12-06] MEDS ORDERED: AZITHROMYCIN 250 MG TAB PO SCH (18:00)
== END 2020-12-06 16:40 | disposition home or self-care (01) ==
LOC: ED 11:25 → 2N 14:40 → SUATTDRO 14:40 → INTOOBSV 14:40 → 2N 15:51

== ENCOUNTER 2021-04-13 12:34 | Inpatient (IN) ==
[2021-04-13] MEDS ORDERED: SODIUM CHLORIDE 0.9% 500 ML IV ONE (14:33)
[2021-04-13 14:35] LABS: Basophils # (auto) 0.01 K/uL (0-0.2); Basophils % (auto) 0.1 %; Eosinophils # (auto) 0.09 K/uL (0-0.5); Eosinophils % (auto) 1.1 %; Hematocrit (blood only) 36.6 % (42-52); Hemoglobin 12.1 g/dL (14.0-18.0); Immature Granulocytes # (auto) 0.03 K/uL (0.00-0.02); Immature Granulocytes % (auto) 0.4 %; Lymphocytes # (auto) 0.96 K/uL (1.2-3.4); Lymphocytes % (auto) 11.9 %; Mean Corpuscular Hemoglobin 30.6 pg (25-34); Mean Corpuscular Hgb Conc 33.1 g/dL (32-36); Mean Corpuscular Volume 92.4 fL (80-100); Mean Platelet Volume 10.5 fL (7.4-10.4); Monocytes # (auto) 0.94 K/uL (0.11-0.59); Monocytes % (auto) 11.6 %; Neutrophils # (auto) 6.07 K/uL (1.4-6.5); Neutrophils % (auto) 74.9 %; Platelet Count 212 K/uL (130-400); RDW Coefficient of Variation 14.1 % (11.5-14.5); Red Blood Count 3.96 M/uL (4.7-6.1)
[2021-04-13 14:46] LABS: Partial Thromboplastin Ratio 1.1; Prothrombin Time 10.5 Seconds (9.0-12.0)
[2021-04-13 14:53] LABS: Alanine Aminotransferase 10 U/L (12-78); Albumin Level 3.2 gm/dl (3.4-5.0); Aspartate Aminotransferase 18 U/L (15-37); BUN Creatinine Ratio 15.6 (10-20); Blood Urea Nitrogen 15 mg/dl (7-18); Calcium 8.7 mg/dl (8.5-10.1); Carbon Dioxide 30 mmol/L (21-32); Chloride 102 mmol/L (98-107); Creatinine Clr Calc Pharmacy 68.2 ml/min; Est GFR (African American) 85.2 ml/min; Est GFR (Non-African American) 73.6 ml/min; Glucose 145 mg/dl (70-99); Magnesium 1.9 mg/dl (1.8-2.4); Sodium 137 mmol/L (136-145)
[2021-04-13 14:54] LABS: Appearance Urine Clear (Clear); Color Urine Orange; Specific Gravity Urine 1.029 (1.000-1.030)
[2021-04-13] MEDS ORDERED: MEROPENEM 500 MG in SYRINGE 0 ML IV ONE (14:56)
[2021-04-13] MEDS ORDERED: MEROPENEM CONSULT ACITVE PRN (14:56)
[2021-04-13 14:58] LABS: Albumin Globulin Ratio 0.8 (0.9-2); Alkaline Phosphatase 94 U/L (45-117); Bilirubin,Total 1.3 mg/dl (0.2-1); Globulin 4.1 gm/dl (2.5-4.0); Total Protein 7.3 gm/dl (6.4-8.2); Troponin I < 0.015 ng/ml (0-0.045)
[2021-04-13 14:59] LABS: Bacteria Urine 1+ (Negative); Epithelial Cell Urine 0-5 /lpf (0-5); Mucus Urine Present (None Prsent); WBC Urine >30 /hpf (0-5)
--- NOTE | 2021-04-13 14:59 | Emergency Department Note ---
Impression & Plan Urinary tract infection, Pneumonia, Acute hypotension, Pleural effusion ED Provider Note NAME: BRODY NUNEZ AGE: 80 SEX: M : 1940 ARRIVES VIA: Walk-In INFORMANT: Patient, the patient's significant other ED PROVIDER(S): Perez Ricci DO CHIEF COMPLAINT: Fever HPI: The patient is a 80-year-old male who presented to the emergency department at the request of his primary care physician for an evaluation. The patient was in the [facility] with his significant other over the weekend. He had a syncopal episode while he was up there. He was evaluated in an emergency department and felt to be a candidate for inpatient observation for his condition. After 24 hours the patient developed fever and chills. He was ultim ately diagnosed with Klebsiella in the urine and was treated with antibiotics. He was given IV antibiotics and then sent home on cefdinir. He was doing well after he was discharged. He was discharged Friday this week. He was taking all his medications as prescribed. He had a follow-up appointment today with his doctor. He went to see his doctor but then was sent directly to the emergency department because of his symptoms. The patient was noted to have a fever this morning. The patient denies having any nausea or vomiting. He denies having any chest pain. He denies having any back pain. The patient has noticed generalized weakness and his significant other states that he is having very severe trouble ambulating because of the illness. ROS: See above HPI for pertinent positives & negatives. A total of 10 systems reviewed and were otherwise negative. PAST MEDICAL HISTORY: See Below PAST SURGICAL HISTORY: See Below FAMILY HISTORY: See Below SOCIAL HISTORY: See Below HOME MEDICATIONS: See Below ALLERGIES: See Below VITALS: See Below PHYSICAL EXAMINATION: GENERAL: The patient is awake and alert. He is nonanxious appearing. EYES: The conjunctivae are clear. The pupils are round and reactive. EARS, NOSE, MOUTH AND THROAT: The nose is without any evidence of any deformity. Mucous membranes are dry. NECK: The neck is nontender and supple. RESPIRATORY: Normal respiratory effort is noted there is no evidence of wheezing rhonchi or rales CARDIOVASCULAR: Regular rate and rhythm noted there no murmurs rubs or gallops normal S1 normal S2. GASTROINTESTINAL: The abdomen is soft. Abdomen is nontender. MUSCULOSKELETAL/EXTREMITIES: There is no evidence of gross deformity full range of motion is noted in the hips and shoulders. SKIN: Trace pedal edema was noted bilaterally. Skin was warm and dry. NEUROLOGIC: Patient is awake alert and oriented x3. MEDICAL DECISION MAKING: The patient is a 80-year-old male who presented to the emergency department for an evaluation of generalized weakness and fever. The patient recently was diagnosed with urinary tract infection that was positive for Klebsiella on a culture. The patient was placed on an antibiotic. He has been taking the antibiotic but started having fever again today. He was seen at his primary care physician's office and sent to the emergency department for further evaluation. The patient was treated with IV fluids in the emergency department. He was found to have hypotension and hypoxia initially. This resolved on reevaluation. The patient was treated with IV antibiotics. There was significant concern given the patient's recent admission and his symptoms that he could have a recurrent urinary infection. To further evaluate this CT of the chest abdomen pelvis was obtained. I discussed the patient's condition with ana im. He was found to have signs of pleural effusion which may cause his hypoxia. This could also be consistent with pneumonia. I discussed this case with the on-call [facility] hospitalist. They have agreed to evaluate the patient in the emergency department for further management and disposition. The patient's symptoms significantly improved on reevaluation. Triage Nursing notes reviewed. Prior medical records reviewed Vital Signs: reviewed and remarkable for initial hypotension and hypoxia. Differential diagnosis: Viral syndrome, otitis, pharyngitis, pneumonia, influenza, meningitis, urinary tract infection, sepsis, bacteremia, as well as other pathologies. ER treatment provided: See below Diagnostics interpreted by me: ECG: EKG was obtained in the emergency department. My interpretation is sinus rhythm at 68 bpm. PACs were noted. There is no acute ST segment abnormalities. This was compared to a tracing from January 222020. Atrial fibrillation has been replaced with sinus rhythm. Cardiac Monitoring: An order was placed for continuous cardiac monitoring. The monitor shows a rate of 65 bpm with sinus rhythm. Laboratory studies: As stated above and show below. Imaging studies: See below Consultation(s): 1720: I discussed this case with Dr. Rome who is on-call for the [facility]. Past Med/Surg History Medical History Benign prostatic hyperplasia with urinary obstruction Chronic constipation Closed head injury Depression Hypotension Hypothyroidism Lumbar pain Lumbar post-laminectomy syndrome Prior left L3-4 hemilaminectomy Memory loss Neurogenic bladder PAF (paroxysmal atrial fibrillation) Parkinson's disease Sacral insufficiency fracture Spinal stenosis of lumbar region Urge incontinence of urine Surgical History History of back surgery History of tonsillectomy 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) Family History Unknown Alzheimer disease Sister Diabetes Cancer Other Family history non-contributory Social History Smoking Status: Former smoker Tobacco Type: Cigarettes Second Hand Exposure: No; Hx Alcohol Use: No Hx Substance Use: No Preferred Language: Chinese Communication Ability: Effective Wrapper Layer Required: No Beliefs That Will Affect Care: None marital status: Current Living Situation: Spouse current occupational status: retired Feels Safe at Home: Yes Assistive Devices: Glasses Allergies Allergies Allergy/AdvReac Type Severity Reaction Status Date / Time diphenhydramine AdvReac Unknown Verified 04/13/21 18:33 [From Benadryl] Home Meds Home Medications Medication Instructions Recorded Confirmed atorvastatin 20 mg tablet (Lipitor) 20 mg PO QAM tab 05/11/19 04/13/21 cholecalciferol (vitamin D3) 50 2,000 unit PO HS cap 05/11/19 04/13/21 mcg (2,000 unit) capsule (Vitamin D3) clonazepam 1 mg tablet 2 mg PO HS #45 tab 05/11/19 04/13/21 donepezil 10 mg tablet (Aricept) 10 mg PO HS tab 05/11/19 04/13/21 escitalopram oxalate 10 mg tablet 10 mg PO HS 06/30/19 04/13/21 (Lexapro) fludrocortisone 0.1 mg tablet 0.2 mg PO QAM 06/30/19 04/13/21 levothyroxine 50 mcg tablet 50 mcg PO QAM 06/30/19 04/13/21 (Synthroid) linaclotide 290 mcg capsule 290 mcg PO QPM 06/30/19 04/13/21 (Linzess) melatonin 10 mg tablet 10 mg PO HS 06/30/19 04/13/21 multivitamin 1 tab PO PM 06/30/19 04/13/21 potassium chloride 10 mEq 10 meq PO BID 06/30/19 04/13/21 capsule,extended release polyethylene glycol 3350 17 8.5 gm PO DAILY PRN 07/14/19 04/13/21 gram/dose oral powder (Miralax) carbidopa 25 mg-levodopa 100 mg 2 tab PO BID 08/20/19 04/13/21 tablet (Sinemet) sennosides 8.6 mg tablet (senna) 17.2 mg PO BID tab 11/10/19 04/13/21 carbidopa 25 mg-levodopa 100 mg 2.5 tab PO 0900 12/04/20 04/13/21 tablet cetirizine 10 mg tablet (Zyrtec) 10 mg PO QAM 12/04/20 04/13/21 metoprolol succinate 50 mg 50 mg PO QAM 01/22/21 04/13/21 tablet,extended release 24 hr carbidopa ER 50 mg-levodopa 200 mg 1 tab PO DAILY@2100 04/13/21 04/13/21 tablet,extended release cefdinir 300 mg capsule 300 mg PO BID 04/13/21 04/13/21 ketoconazole 2 % topical cream 1 applic TOP BID PRN 04/13/21 04/13/21 Results & Data (ED) Vital Signs Vital Signs - 24 hr 04/13/21 13:49 04/13/21 14:17 04/13/21 14:30 Temperature 37.4 C Temperature Source Temporal Artery Scan Pulse Rate 73 69 67 Pulse Rate from SpO2 Sensor 70 69 Respiratory Rate 18 16 16 Respiratory Effort / Characteristics Blood Pressure 73/44 L 140/67 150/72 H Blood Pressure Mean 53 91 98 Blood Pressure Position Sitting Pulse Oximetry 89 L 95 95 Oxygen Delivery Method Room Air Room Air Room Air Sepsis Recent Fever Within 48 Hours No Sepsis New/Unexplained Change in Mental Status N/A Sepsis Action Taken by Nursing No Action Required 04/13/21 14:36 04/13/21 14:45 04/13/21 15:00 Temperature Temperature Source Pulse Rate 67 65 Pulse Rate from SpO2 Sensor 67 67 Respiratory Rate 16 16 Respiratory Effort / Characteristics Non-Labored Spontaneous Blood Pressure 155/83 H 161/93 H Blood Pressure Mean 107 115 Blood Pressure Position Pulse Oximetry 98 94 Oxygen Delivery Method Room Air Room Air Sepsis Recent Fever Within 48 Hours Sepsis New/Unexplained Change in Mental Status Sepsis Action Taken by Nursing 04/13/21 15:15 04/13/21 15:31 04/13/21 15:45 Temperature Temperature Source Pulse Rate 69 72 72 Pulse Rate from SpO2 Sensor 70 72 75 Respiratory Rate 18 21 19 Respiratory Effort / Characteristics Blood Pressure 168/93 H 147/85 H 171/85 H Blood Pressure Mean 118 105 113 Blood Pressure Position Pulse Oximetry 93 96 95 Oxygen Delivery Method Sepsis Recent Fever Within 48 Hours Sepsis New/Unexplained Change in Mental Status Sepsis Action Taken by Nursing 04/13/21 16:00 04/13/21 16:18 04/13/21 16:20 Temperature Temperature Source Pulse Rate 75 74 Pulse Rate from SpO2 Sensor 71 74 Respiratory Rate 20 19 Respiratory Effort / Characteristics Blood Pressure 167/89 H Blood Pressure Mean 115 Blood Pressure Position Pulse Oximetry 93 93 Oxygen Delivery Method Sepsis Recent Fever Within 48 Hours Sepsis New/Unexplained Change in Mental Status Sepsis Action Taken by Nursing 04/13/21 16:30 04/13/21 16:45 04/13/21 17:00 Temperature Temperature Source Pulse Rate 75 71 71 Pulse Rate from SpO2 Sensor 71 71 Respiratory Rate 21 12 Respiratory Effort / Characteristics Blood Pressure 178/95 H 158/94 H Blood Pressure Mean 122 115 Blood Pressure Position Pulse Oximetry 91 92 Oxygen Delivery Method Sepsis Recent Fever Within 48 Hours Sepsis New/Unexplained Change in Mental Status Sepsis Action Taken by Nursing 04/13/21 17:16 04/13/21 17:31 04/13/21 17:40 Temperature Temperature Source Pulse Rate 71 73 72 Pulse Rate from SpO2 Sensor 73 72 Respiratory Rate 15 20 18 Respiratory Effort / Characteristics Blood Pressure Blood Pressure Mean 110 Blood Pressure Position Pulse Oximetry 94 93 Oxygen Delivery Method Sepsis Recent Fever Within 48 Hours Sepsis New/Unexplained Change in Mental Status Sepsis Action Taken by Nursing 04/13/21 17:50 04/13/21 18:00 04/13/21 18:10 Temperature Temperature Source Pulse Rate 70 69 68 Pulse Rate from SpO2 Sensor 70 69 Respiratory Rate 13 15 13 Respiratory Effort / Characteristics Blood Pressure Blood Pressure Mean Blood Pressure Position Pulse Oximetry 92 93 Oxygen Delivery Method Sepsis Recent Fever Within 48 Hours Sepsis New/Unexplained Change in Mental Status Sepsis Action Taken by Nursing 04/13/21 18:20 04/13/21 18:30 04/13/21 18:40 Temperature Temperature Source Pulse Rate 70 65 69 Pulse Rate from SpO2 Sensor 69 65 69 Respiratory Rate 13 15 15 Respiratory Effort / Characteristics Blood Pressure Blood Pressure Mean Blood Pressure Position Pulse Oximetry 92 91 91 Oxygen Delivery Method Sepsis Recent Fever Within 48 Hours Sepsis New/Unexplained Change in Mental Status Sepsis Action Taken by Nursing 04/13/21 18:50 04/13/21 19:00 04/13/21 19:10 Temperature Temperature Source Pulse Rate 72 71 66 Pulse Rate from SpO2 Sensor 71 71 68 Respiratory Rate 18 Respiratory Effort / Characteristics Blood Pressure Blood Pressure Mean Blood Pressure Position Pulse Oximetry 91 92 91 Oxygen Delivery Method Sepsis Recent Fever Within 48 Hours Sepsis New/Unexplained Change in Mental Status Sepsis Action Taken by Nursing 04/13/21 19:20 04/13/21 19:30 04/13/21 19:40 Temperature Temperature Source Pulse Rate 69 68 69 Pulse Rate from SpO2 Sensor 70 69 84 Respiratory Rate 19 Respiratory Effort / Characteristics Blood Pressure Blood Pressure Mean Blood Pressure Position Pulse Oximetry 92 92 91 Oxygen Delivery Method Sepsis Recent Fever Within 48 Hours Sepsis New/Unexplained Change in Mental Status Sepsis Action Taken by Nursing 04/13/21 19:50 Temperature Temperature Source Pulse Rate 66 Pulse Rate from SpO2 Sensor 68 Respiratory Rate Respiratory Effort / Characteristics Blood Pressure Blood Pressure Mean Blood Pressure Position Pulse Oximetry 94 Oxygen Delivery Method Sepsis Recent Fever Within 48 Hours Sepsis New/Unexplained Change in Mental Status Sepsis Action Taken by [facility] Medications Current Medication List: was personally reviewed by me Laboratory Data Attestation: I reviewed the patient's lab results. Result diagrams: 04/13/21 14:22 04/13/21 14:22 Lab Results 04/13/21 04/13/21 04/13/21 Range/Units 14:22 14:22 14:22 WBC 8.10 (4.8-10.8) K/uL RBC 3.96 L (4.7-6.1) M/uL Hgb 12.1 L (14.0-18.0) g/dL Hct 36.6 L (42-52) % MCV 92.4 (80-100) fL MCH 30.6 (25-34) pg MCHC 33.1 (32-36) g/dL RDW Std Deviation 48.0 H (36.4-46.3) fL RDW Coeff of Imelda 14.1 (11.5-14.5) % Plt Count 212 (130-400) K/uL MPV 10.5 H (7.4-10.4) fL Immature Gran % (Auto) 0.4 % Neut % (Auto) 74.9 % Lymph % (Auto) 11.9 % Waldo % (Auto) 11.6 % Eos % (Auto) 1.1 % Baso % (Auto) 0.1 % Neut # (Auto) 6.07 (1.4-6.5) K/uL Lymph # (Auto) 0.96 L (1.2-3.4) K/uL Waldo # (Auto) 0.94 H (0.11-0.59) K/uL Eos # (Auto) 0.09 (0-0.5) K/uL Baso # (Auto) 0.01 (0-0.2) K/uL Immature Gran # (Auto) 0.03 H (0.00-0.02) K/uL PT (9.0-12.0) Seconds INR (0.9-1.1) APTT (21.0-31.0) Seconds PTT Ratio Sodium 137 (136-145) mmol/L Potassium 4.0 (3.5-5.1) mmol/L Chloride 102 (98-107) mmol/L Carbon Dioxide 30 (21-32) mmol/L Anion Gap 5.0 (3-11) BUN 15 (7-18) mg/dl Creatinine 0.98 (0.6-1.4) mg/dl Est Cr Clr Drug Dosing 68.2 ml/min Est GFR ( Amer) 85.2 ml/min Est GFR (Non-Af Amer) 73.6 ml/min BUN/Creatinine Ratio 15.6 (10-20) Glucose 145 H (70-99) mg/dl Lactate (0.4-2.0) mmol/L Calcium 8.7 (8.5-10.1) mg/dl Magnesium 1.9 (1.8-2.4) mg/dl Total Bilirubin 1.3 H (0.2-1) mg/dl AST 18 (15-37) U/L ALT 10 L (12-78) U/L Alkaline Phosphatase 94 (45-117) U/L Troponin I < 0.015 (0-0.045) ng/ml Total Protein 7.3 (6.4-8.2) gm/dl Albumin 3.2 L (3.4-5.0) gm/dl Globulin 4.1 H (2.5-4.0) gm/dl Albumin/Globulin Ratio 0.8 L (0.9-2) Procalcitonin (0-0.5) ng/ml Urine Color Urine Appearance (Clear) Urine pH (4.5-7.5) Ur Specific [place] (1.000-1.030) Urine Protein (Negative) Urine Glucose (UA) (Negative) Urine Ketones (Negative) Urine Blood (Negative) Urine Nitrite (Negative) Urine Bilirubin (Negative) Urine Urobilinogen (Negative) Ur Leukocyte Esterase (Negative) Urine RBC (0-4) /hpf Urine WBC (0-5) /hpf Ur Epithelial Cells (0-5) /lpf Urine Bacteria (Negative) Urine Mucus (None Prsent) Anaplasma Smear See Comment Lyme Disease IgG Ab Negative (Negative) Lyme Disease IgM Ab Negative (Negative) COVID-19 Eval Order SARS-CoV-2 (PCR) (Negative) 04/13/21 04/13/21 04/13/21 Range/Units 14:22 14:22 14:30 WBC (4.8-10.8) K/uL RBC (4.7-6.1) M/uL Hgb (14.0-18.0) g/dL Hct (42-52) % MCV (80-100) fL MCH (25-34) pg MCHC (32-36) g/dL RDW Std Deviation (36.4-46.3) fL RDW Coeff of Imelda (11.5-14.5) % Plt Count (130-400) K/uL MPV (7.4-10.4) fL Immature Gran % (Auto) % Neut % (Auto) % Lymph % (Auto) % Wal[place] % (Auto) % Eos % (Auto) % Baso % (Auto) % Neut # (Auto) (1.4-6.5) K/uL Lymph # (Auto) (1.2-3.4) K/uL Waldo # (Auto) (0.11-0.59) K/uL Eos # (Auto) (0-0.5) K/uL Baso # (Auto) (0-0.2) K/uL Immature Gran # (Auto) (0.00-0.02) K/uL PT 10.5 (9.0-12.0) Seconds INR 1.0 (0.9-1.1) APTT 28.0 (21.0-31.0) Seconds PTT Ratio 1.1 Sodium (136-145) mmol/L Potassium (3.5-5.1) mmol/L Chloride (98-107) mmol/L Carbon Dioxide (21-32) mmol/L Anion Gap (3-11) BUN (7-18) mg/dl Creatinine (0.6-1.4) mg/dl Est Cr Clr Drug Dosing ml/min Est GFR ( Amer) ml/min Est GFR (Non-Af Amer) ml/min BUN/Creatinine Ratio (10-20) Glucose (70-99) mg/dl Lactate (0.4-2.0) mmol/L Calcium (8.5-10.1) mg/dl Magnesium (1.8-2.4) mg/dl Total Bilirubin (0.2-1) mg/dl AST (15-37) U/L ALT (12-78) U/L Alkaline Phosphatase (45-117) U/L Troponin I (0-0.045) ng/ml Total Protein (6.4-8.2) gm/dl Albumin (3.4-5.0) gm/dl Globulin (2.5-4.0) gm/dl Albumin/Globulin Ratio (0.9-2) Procalcitonin 0.27 (0-0.5) ng/ml Urine Color [place] Urine Appearance Clear (Clear) Urine pH (4.5-7.5) Ur Specific [place] 1.029 (1.000-1.030) Urine Protein (Negative) Urine Glucose (UA) (Negative) Urine Ketones (Negative) Urine Blood (Negative) Urine Nitrite (Negative) Urine Bilirubin (Negative) Urine Urobilinogen (Negative) Ur Leukocyte Esterase (Negative) Urine RBC 10-30 H (0-4) /hpf Urine WBC >30 H (0-5) /hpf Ur Epithelial Cells 0-5 (0-5) /lpf Urine Bacteria 1+ H (Negative) Urine Mucus Present A (None Prsent) Anaplasma Smear Lyme Disease IgG Ab (Negative) Lyme Disease IgM Ab (Negative) COVID-19 Eval Order SARS-CoV-2 (PCR) (Negative) 04/13/21 04/13/21 04/13/21 Range/Units 14:44 14:44 14:55 WBC (4.8-10.8) K/uL RBC (4.7-6.1) M/uL Hgb (14.0-18.0) g/dL Hct (42-52) % MCV (80-100) fL MCH (25-34) pg MCHC (32-36) g/dL RDW Std Deviation (36.4-46.3) fL RDW Coeff of Imelda (11.5-14.5) % Plt Count (130-400) K/uL MPV (7.4-10.4) fL Immature Gran % (Auto) % Neut % (Auto) % Lymph % (Auto) % Waldo % (Auto) % Eos % (Auto) % Baso % (Auto) % Neut # (Auto) (1.4-6.5) K/uL Lymph # (Auto) (1.2-3.4) K/uL [place] # (Auto) (0.11-0.59) K/uL Eos # (Auto) (0-0.5) K/uL Baso # (Auto) (0-0.2) K/uL Immature Gran # (Auto) (0.00-0.02) K/uL PT (9.0-12.0) Seconds INR (0.9-1.1) APTT (21.0-31.0) Seconds PTT Ratio Sodium (136-145) mmol/L Potassium (3.5-5.1) mmol/L Chloride (98-107) mmol/L Carbon Dioxide (21-32) mmol/L Anion Gap (3-11) BUN (7-18) mg/dl Creatinine (0.6-1.4) mg/dl Est Cr Clr Drug Dosing ml/min Est GFR ( Amer) ml/min Est GFR (Non-Af Amer) ml/min BUN/Creatinine Ratio (10-20) Glucose (70-99) mg/dl Lactate 1.1 (0.4-2.0) mmol/L Calcium (8.5-10.1) mg/dl Magnesium (1.8-2.4) mg/dl Total Bilirubin (0.2-1) mg/dl AST (15-37) U/L ALT (12-78) U/L Alkaline Phosphatase (45-117) U/L Troponin I (0-0.045) ng/ml Total Protein (6.4-8.2) gm/dl Albumin (3.4-5.0) gm/dl Globulin (2.5-4.0) gm/dl Albumin/Globulin Ratio (0.9-2) Procalcitonin (0-0.5) ng/ml Urine Color Urine Appearance (Clear) Urine pH (4.5-7.5) Ur Specific [place] (1.000-1.030) Urine Protein (Negative) Urine Glucose (UA) (Negative) Urine Ketones (Negative) Urine Blood (Negative) Urine Nitrite (Negative) Urine Bilirubin (Negative) Urine Urobilinogen (Negative) Ur Leukocyte Esterase (Negative) Urine RBC (0-4) /hpf Urine WBC (0-5) /hpf Ur Epithelial Cells (0-5) /lpf Urine Bacteria (Negative) Urine Mucus (None Prsent) Anaplasma Smear Lyme Disease IgG Ab (Negative) Lyme Disease IgM Ab (Negative) COVID-19 Eval Order Covid19 at [facility] SARS-CoV-2 (PCR) NEGATIVE (Negative) Administered Medications Discontinued Medications Sodium Chloride (Nss) 500 mls @ 999 mls/hr IV .Q31M ONE Stop: 04/13/21 15:03 Last Infusion: 04/13/21 15:39 Dose: 0 mls/hr Documented by: [id number] Admin: 04/13/21 14:59 Dose: 999 mls/hr Documented by: [id number] Meropenem 500 mg/ Syringe 10 mls @ 2 mls/min IV ONE ONE; Protocol Stop: 04/13/21 15:00 Last Admin: 04/13/21 15:47 Dose: 2 mls/min Documented by: [id number] Sodium Chloride (Nss 1000ml) 1,000 mls @ 999 mls/hr IV .Q1H1M ONE Stop: 04/13/21 18:02 Last Infusion: 04/13/21 18:27 Dose: 0 mls/hr Documented by: [id number] Admin: 04/13/21 17:18 Dose: 999 mls/hr Documented by: [id number] Ioversol (Optiray 320 125ml) 119 ml IV ONCE ONE Stop: 04/13/21 16:09 Last Admin: 04/13/21 16:09 Dose: 119 ml Documented by: [id number] Imaging Data Radiologist's Impression: Chest X-Ray 04/13/21 14:23 XR chest 1V portable CLINICAL HISTORY: SEPSIS COMPARISON STUDY: January 22, 2021 FINDINGS: No pneumothorax. Small left pleural effusion is seen associated with atelectasis/infiltrate at the left base. Mild diffuse reticular nodular opacities are seen throughout bilateral lungs likely exaggerated due to low inspiratory effort. Cardiomediastinal silhouette is within upper limits of normal. Aorta is calcified. Menisci vasculature is obscured.. Osseous structures: Minimal degenerative changes of the spine. IMPRESSION: 1. Mild diffuse reticular nodular opacities throughout bilateral lungs might represent pulmonary edema and exaggerated by low inspiratory effort. 2. Small left pleural effusion associated with atelectasis/infiltrate at the left base. 3. Atherosclerosis. ACT 112: Negative or not required by law. The above report was generated using voice recognition software. It may contain grammatical, syntax or spelling errors. Electronically signed by: Dianna Bryson DO 04/13/2021 3:00 PM Abdomen/Pelvis CT 04/13/21 14:59 CT angio chest PE protocol, CT abd pelvis IV con only CT DOSE: 666.18 mGy.cm HISTORY: 80 years-old Male with PE. Acute sepsis TECHNIQUE: Multiple CTA images of the chest were obtained after the intravenous administration of 119 ml Optiray. Coronal and sagittal MIPS were obtained from the axial data set and were submitted for review. All measurements were obtained according to NASCET criteria. CT abdomen pelvis IV contrast only was also obtained. A dose lowering technique was utilized adhering to the principles of ALARA. COMPARISON: CT chest, abdomen and pelvis 12/04/2020 FINDINGS: CTA: Mild cardiomegaly with small pericardial effusion. Extensive coronary artery calcifications. Mild atherosclerotic plaque of the thoracic aorta without aneurysm or dissection. Satisfactory opacification of the pulmonary artery. No pulmonary emboli identified. CT CHEST: Unremarkable thyroid. Mildly enlarged subcarinal and right hilar lymph nodes measuring up to 11 mm are likely reactive. Small left and small to moderate right pleural effusions. No pneumothorax. Intralobular septal thickening with dependent subsegmental bibasilar atelectasis. Patchy intermixed centrilobular groundglass densities. Central airways are generally patent with mild bibasilar mucous plugging. Mild left hemidiaphragmatic elevation. Unremarkable soft tissues. Degenerative changes of the shoulders and spine. CT ABDOMEN/PELVIS: No pneumatosis or pneumoperitoneum. Spleen, mildly atrophic pancreas, adrenal glands, gallbladder and liver appear unremarkable. Patency of the hepatic and portal veins. There are a few scattered bilateral renal cysts. No hydronephrosis. Prostamegaly. Urinary bladder wall thickening with partial distention. Atherosclerosis of the abdominal aorta without aneurysm. Nonspecific mildly prominent left iliac chain lymph nodes measure up to 9 mm. Trace free fluid within the dependent pelvis. No bowel obstruction or bowel wall thickening. Mild fecal retention. The appendix is not definitively seen. No secondary signs to suggest acute appendicitis. Mild generalized body wall edema. Degenerative changes of the spine, pelvis and hips. IMPRESSION: 1. No pulmonary emboli. 2. Cardiomegaly with small pericardial effusion, interstitial pulmonary edema with layering pleural effusions. 3. Patchy bilateral centrilobular groundglass/consolidative opacities are suggestive of associated alveolar pulmonary edema versus superimposed pneumonia. 4. Mild generalized body wall edema with trace free pelvic fluid. 5. No bowel obstruction or bowel wall thickening. 6. Prostamegaly with findings suggestive of chronic bladder outlet obstruction. 7. Additional findings as above. ACT 112: Negative or not required by law. The above report was generated using voice recognition software. It may contain grammatical, syntax or spelling errors. Electronically signed by: Nilton Ryan M.D. 04/13/2021 4:40 PM Chest CTA 04/13/21 15:00 CT angio chest PE protocol, CT abd pelvis IV con only CT DOSE: 666.18 mGy.cm HISTORY: 80 years-old Male with PE. Acute sepsis TECHNIQUE: Multiple CTA images of the chest were obtained after the intravenous administration of 119 ml Optiray. Coronal and sagittal MIPS were obtained from the axial data set and were submitted for review. All measurements were obtained according to NASCET criteria. CT abdomen pelvis IV contrast only was also obtained. A dose lowering technique was utilized adhering to the principles of ALARA. COMPARISON: CT chest, abdomen and pelvis 12/04/2020 FINDINGS: CTA: Mild cardiomegaly with small pericardial effusion. Extensive coronary artery calcifications. Mild atherosclerotic plaque of the thoracic aorta without aneurysm or dissection. Satisfactory opacification of the pulmonary artery. No pulmonary emboli identified. CT CHEST: Unremarkable thyroid. Mildly enlarged subcarinal and right hilar lymph nodes measuring up to 11 mm are likely reactive. Small left and small to moderate right pleural effusions. No pneumothorax. Intralobular septal thickening with dependent subsegmental bibasilar atelectasis. Patchy intermixed centrilobular groundglass densities. Central airways are generally patent with mild bibasilar mucous plugging. Mild left hemidiaphragmatic elevation. Unremarkable soft tissues. Degenerative changes of the shoulders and spine. CT ABDOMEN/PELVIS: No pneumatosis or pneumoperitoneum. Spleen, mildly atrophic pancreas, adrenal glands, gallbladder and liver appear unremarkable. Patency of the hepatic and portal veins. There are a few scattered bilateral renal cysts. No hydronephrosis. Prostamegaly. Urinary bladder wall thickening with partial distention. Atherosclerosis of the abdominal aorta without aneurysm. Nonspecific mildly prominent left iliac chain lymph nodes measure up to 9 mm. Trace free fluid within the dependent pelvis. No bowel obstruction or bowel wall thickening. Mild fecal retention. The appendix is not definitively seen. No secondary signs to suggest acute appendicitis. Mild generalized body wall edema. Degenerative changes of the spine, pelvis and hips. IMPRESSION: 1. No pulmonary emboli. 2. Cardiomegaly with small pericardial effusion, interstitial pulmonary edema with layering pleural effusions. 3. Patchy bilateral centrilobular groundglass/consolidative opacities are suggestive of associated alveolar pulmonary edema versus superimposed pneumonia. 4. Mild generalized body wall edema with trace free pelvic fluid. 5. No bowel obstruction or bowel wall thickening. 6. Prostamegaly with findings suggestive of chronic bladder outlet obstruction. 7. Additional findings as above. ACT 112: Negative or not required by law. The above report was generated using voice recognition software. It may contain grammatical, syntax or spelling errors. Electronically signed by: Nilton Ryan M.D. 04/13/2021 4:40 PM Discharge Plan Visit Data Chief Complaint: Fever Stated Complaint: FEVER, COUGHING, SEPSIS IN HOSPITAL IN PAST ED Provider: [facility] ED Midlevel Provider: James Hood Discharge Problem: Urinary tract infection, Pneumonia, Acute hypotension, Pleural effusion Patient Disposition: Being Evaluated by Hospitalist Condition: Good Forms Stand Alone Forms: My [facility] Prescriptions Prescriptions: No Action cholecalciferol (vitamin D3) [Vitamin D3] 2,000 unit capsule 2,000 unit PO HS RF: 0 clonazepam 1 mg tablet 2 mg PO HS Qty: 45 RF: 0 donepezil [Aricept] 10 mg tablet 10 mg PO HS RF: 0 atorvastatin [Lipitor] 20 mg tablet 20 mg PO QAM RF: 0 polyethylene glycol 3350 [Miralax] 17 gram/dose powder 8.5 gm PO DAILY PRN (Reason: Constipation) RF: 0 multivitamin Tablet 1 tab PO PM RF: 0 potassium chloride 10 mEq capsule, extended release 10 meq PO BID RF: 0 levothyroxine [Synthroid] 50 mcg tablet 50 mcg PO QAM RF: 0 fludrocortisone 0.1 mg tablet 0.2 mg PO QAM RF: 0 escitalopram oxalate [Lexapro] 10 mg tablet 10 mg PO HS RF: 0 melatonin 10 mg Tablet 10 mg PO HS RF: 0 Linzess 290 mcg capsule 290 mcg PO QPM RF: 0 sennosides [senna] 8.6 mg tablet 17.2 mg PO BID RF: 0 carbidopa-levodopa [Sinemet] 25-100 mg tablet 2 tab PO BID RF: 0 carbidopa-levodopa 25-100 mg tablet 2.5 tab PO 0900 RF: 0 cetirizine [Zyrtec] 10 mg Tablet 10 mg PO QAM RF: 0 metoprolol succinate 50 mg tablet extended release 24 hr 50 mg PO QAM RF: 0 cefdinir 300 mg capsule 300 mg PO BID RF: 0 carbidopa-levodopa 50-200 mg tablet extended release 1 tab PO DAILY@2100 RF: 0 ketoconazole 2 % cream 1 applic TOP BID PRN (Reason: fungal maintenance) RF: 0 Referrals Referrals: Jon Bal Jr, [Primary Care Provider] -
--- NOTE | 2021-04-13 15:01 | XRay Report ---
XR chest 1V portable CLINICAL HISTORY: SEPSIS COMPARISON STUDY: January 22, 2021 FINDINGS: No pneumothorax. Small left pleural effusion is seen associated with atelectasis/infiltrate at the left base. Mild diffuse reticular nodular opacities are seen throughout bilateral lungs likely exaggerated due t o low inspiratory effort. Cardiomediastinal silhouette is within upper limits of normal. Aorta is calcified. Menisci vasculature is obscured.. Osseous structures: Minimal degenerative changes of the spine. IMPRESSION: 1. Mild diffuse reticular nodular opacities throughout bilateral lungs might represent pulmonary shamir ma and exaggerated by low inspiratory effort. 2. Small left pleural effusion associated with atelectasis/infiltrate at the left base. 3. Atherosclerosis. ACT 112: Negative or not required by law. The above report was generated using voice recognition software. It may contain grammatical, syntax o r spelling errors. Electronically signed by: Dianna Bryson DO 04/13/2021 3:00 PM
[2021-04-13 15:19] LABS: Lyme Ab IgG w/WB Rflx Negative (Negative); Lyme Ab IgM w/WB Rflx Negative (Negative)
--- NOTE | 2021-04-13 15:50 | Electrocardiogram Report ---
Test Reason : Blood Pressure : / mmHG Vent. Rate : 068 BPM Atrial Rate : 068 BPM P-R Int : 160 ms QRS Dur : 088 ms QT Int : 428 ms P-R-T Axes : 092 -01 019 degrees QTc Int : 455 ms Sinus rhythm with frequent Premature atrial complexes Otherwise normal ECG When compared with ECG of 22-JAN-2021 13:31, No significant change Confirmed by Gucci Mcelroy ([id number]) on 04/13/2021 3:49:41 PM Referred By: Confirmed By:Gucci Mcelroy
[2021-04-13] MEDS ORDERED: OPTIRAY 320 125ml IV ONE (16:08)
--- NOTE | 2021-04-13 16:41 | CT Scan Report ---
CT angio chest PE protocol, CT abd pelvis IV con only CT DOSE: 666.18 mGy.cm HISTORY: 80 years-old Male with PE. Acute sepsis TECHNIQUE: Multiple CTA images of the chest were obtained after the intravenous administration of 119 ml Optiray. Coronal and sagittal MIPS were obtained from the axial data set and were submitted for review. All measurements were obtained according to NASCET criteria. CT abdomen pelvis IV contrast o nly was also obtained. A dose lowering technique was utilized adhering to the principles of ALARA. COMPARISON: CT chest, abdomen and pelvis 12/04/2020 FINDINGS: CTA: Mild cardiomegaly with small pericardial effusion. Extensive coronary artery calcifications. Mild ath erosclerotic plaque of the thoracic aorta without aneurysm or dissection. Satisfactory opacification of the pulmonary artery. No pulmonary emboli identified. CT CHEST: Unremarkable thyroid. Mildly enlarged subcarinal and right hilar lymph nodes measuring up to 11 mm ar e likely reactive. Small left and small to moderate right pleural effusions. No pneumothorax. Intralo bular septal thickening with dependent subsegmental bibasilar atelectasis. Patchy intermixed centrilo bular groundglass densities. Central airways are generally patent with mild bibasilar mucous plugging . Mild left hemidiaphragmatic elevation. Unremarkable soft tissues. Degenerative changes of the shoul ders and spine. CT ABDOMEN/PELVIS: No pneumatosis or pneumoperitoneum. Spleen, mildly atrophic pancreas, adrenal glands, gallbladder and liver appear unremarkable. Patency of the hepatic and portal veins. There are a few scattered bilate ral renal cysts. No hydronephrosis. Prostamegaly. Urinary bladder wall thickening with partial disten tion. Atherosclerosis of the abdominal aorta without aneurysm. Nonspecific mildly prominent left giovanny c chain lymph nodes measure up to 9 mm. Trace free fluid within the dependent pelvis. No bowel obstruction or bowel wall thickening. Mild fec al retention. The appendix is not definitively seen. No secondary signs to suggest acute appendicitis . Mild generalized body wall edema. Degenerative changes of the spine, pelvis and hips. IMPRESSION: 1. No pulmonary emboli. 2. Cardiomegaly with small pericardial effusion, interstitial pulmonary edema with layering pleural e ffusions. 3. Patchy bilateral centrilobular groundglass/consolidative opacities are suggestive of associated al veolar pulmonary edema versus superimposed pneumonia. 4. Mild generalized body wall edema with trace free pelvic fluid. 5. No bowel obstruction or bowel wall thickening. 6. Prostamegaly with findings suggestive of chronic bladder outlet obstruction. 7. Additional findings as above. ACT 112: Negative or not required by law. The above report was generated using voice recognition software. It may contain grammatical, syntax o r spelling errors. Electronically signed by: Nilton Ryan M.D. 04/13/2021 4:40 PM
[2021-04-13] MEDS ORDERED: SODIUM CHLORIDE 0.9% 1000ML 1,000 ML IV ONE (17:02)
[2021-04-13] MEDS ORDERED: LIDOCAINE 5% 1 PATCH TD ONE (17:28)
--- NOTE | 2021-04-13 19:02 | History & Physical Report ---
Date of Service April 13, 2021 Assessment & Plan (1) Pneumonia: Plan: CTA chest on 04/13 read with "Patchy bilateral centrilobular groundglass/consolidative opacities" concerning for infection. notes increased coughing with meals/eating/drinking. - Meropenem will cover all typical lung bacteria as well as aspiration bacteria (Gram(-) and anaerobes). - Add azithromycin for atypical bacteria - MRSA swab - FIRE SU[employer] MAN consult for possible aspiration. (2) Urinary tract infection: Plan: First diagnosed at a hospital in [place]. UA on admission to [facility] indicates possible infection, though unclear given color interfering with interpretation. - Abx as above - Follow urine and blood cultures (3) Acute hypotension: Plan: BP was as low as 70/40 on presentation to the ED; however, 2L IV fluid resuscitation, his BP has normalized. Given he was essentially sleeping for 2 days, I do wonder if his hypotension was almost entirely volume depletion mediated, as he no longer has signs of sepsis. - Also has history of orthostasis and syncope, so is on fludrocortisone per Dr. Bal. - Continue fludrocortisone. Given presently normal BP, will not increase or adjust for stress-dose steroids. - Monitor BP (4) Diarrhea: Plan: Several nocturnal episodes on Friday/. None since that night. - Hold Linzess, senna, and Miralax - C. diff ordered, but if not really having any in the last 2 days, unlikely to be C. diff (5) Parkinson's disease: Plan: Atypical variant. Follows with Dr. Alvarado. - Continue Sinemet as prescribed. - Continue donepezil (6) PAF (paroxysmal atrial fibrillation): Plan: Was in afib at [facility], but rate-controlled. Here his EKG appears to be sinus. - Not on anticoagulation at baseline - Continue beta-kennedi (7) Hypothyroidism: Plan: TSH was 2.4 in 11/2020. No signs/symptoms of hypo-/hyperthyroidism. - Continue home Synthroid 50 mcg (8) Uncontrolled REM sleep behavior disorder: Plan: Per , has 10+year history of REM sleep disorder. Without Klonopin, he will jump out of bed while sleeping. - Continue clonazepam - Continue melatonin (9) Spinal stenosis of lumbar region: Plan: Per , lidocaine patch helped significantly. (10) Urge incontinence of urine: Plan: CT a/p on admission showed "Prostatomegaly with findings suggestive of chronic bladder outlet obstruction." However, reports constant dribbling of urine (overflow incontience?). However, at [facility], she reports negative bladder scans. - Patient's declines a Kuo catheter, but willing to use condom catheters (11) Neurogenic bladder: Plan: Due to Parkinson's disease. - As above (12) Depression: Plan: - Continue fluoxetine (13) Prostatic hypertrophy: Plan: Noted on CT a/p; however, per , bladder scans were negative at [facility]. - Bladder scan daily and as needed (14) DVT prophylaxis: Plan: Lovenox 40 mg SQ daily History of Present Illness Chief Complaint: Fatigue, fever Primary Care Provider: Jon Bal Jr, DO 80yo M w/ hx of atypical Parkinson's disease, orthostatic symptoms, syncope, and paroxysmal afib who presents with fever and continued fatigue. The patient was in the [facility] in [place] when he had a syncopal episode. He went to the ER and was found to be mildly bradycardic and in afib. UA at that time was clean (per his ). He was kept overnight for observation, and his reports that he had a fever the next day to 103. His WBC went from 16k on admission to 22k as well. His urine was retested at the time and was found to have signs of infection. He was initially on Zosyn, tapered to ceftriaxone (following sensitivities) on which he continued to improve. His WBC normalized as well per the physcians there. He was discharged on Friday and went home and slept all night and most of the next day. His felt this was probably normal as he was quite tired from the hospital. On Friday, he had several episodes of diarrhea which is unusual for him. No blood or melenic stool per his . On , he continued to be very tired and weak. On discharge from the hospital in [place], he was able to walk with a cane. By this morning, he was not able to get up. He also had a temperature of 101 per his , tested with two thermometers. The patient is sleeping, but easily arousable. He reports few symptoms. He does report he is tired and feels weak. He reports he had a headache this morning when he had a fever. Otherwise denies shortness of breath, chest pain, abdominal pain, n/v, denies dysuria, polyuria, or other symptoms. Allergies Allergy/AdvReac Type Severity Reaction Status Date / Time diphenhydramine AdvReac Unknown Verified 04/13/21 18:33 [From [facility]] Home Medications Medication Instructions Recorded Confirmed Type atorvastatin 20 mg tablet (Lipitor) 20 mg PO QAM tab 05/11/19 04/13/21 History cholecalciferol (vitamin D3) 50 2,000 unit PO HS cap 05/11/19 04/13/21 History mcg (2,000 unit) capsule (Vitamin D3) clonazepam 1 mg tablet 2 mg PO HS #45 tab 05/11/19 04/13/21 History donepezil 10 mg tablet (Aricept) 10 mg PO HS tab 05/11/19 04/13/21 History escitalopram oxalate 10 mg tablet 10 mg PO HS 06/30/19 04/13/21 History (Lexapro) fludrocortisone 0.1 mg tablet 0.2 mg PO QAM 06/30/19 04/13/21 History levothyroxine 50 mcg tablet 50 mcg PO QAM 06/30/19 04/13/21 History (Synthroid) linaclotide 290 mcg capsule 290 mcg PO QPM 06/30/19 04/13/21 History (Linzess) melatonin 10 mg tablet 10 mg PO HS 06/30/19 04/13/21 History multivitamin 1 tab PO PM 06/30/19 04/13/21 History potassium chloride 10 mEq 10 meq PO BID 06/30/19 04/13/21 History capsule,extended release polyethylene glycol 3350 17 8.5 gm PO DAILY PRN 07/14/19 04/13/21 History gram/dose oral powder (Miralax) carbidopa 25 mg-levodopa 100 mg 2 tab PO BID 08/20/19 04/13/21 History tablet (Sinemet) sennosides 8.6 mg tablet (senna) 17.2 mg PO BID tab 11/10/19 04/13/21 History carbidopa 25 mg-levodopa 100 mg 2.5 tab PO 0900 12/04/20 04/13/21 History tablet cetirizine 10 mg tablet (Zyrtec) 10 mg PO QAM 12/04/20 04/13/21 History metoprolol succinate 50 mg 50 mg PO QAM 01/22/21 04/13/21 History tablet,extended release 24 hr carbidopa ER 50 mg-levodopa 200 mg 1 tab PO DAILY@2100 04/13/21 04/13/21 History tablet,extended release cefdinir 300 mg capsule 300 mg PO BID 04/13/21 04/13/21 History ketoconazole 2 % topical cream 1 applic TOP BID PRN 04/13/21 04/13/21 History Past Med/Surg History Medical History (Updated 04/13/21 @ 20:41 by Mahendra Rome MD) Benign prostatic hyperplasia with urinary obstruction Chronic constipation Closed head injury Depression Hypotension Hypothyroidism Lumbar pain Lumbar post-laminectomy syndrome Prior left L3-4 hemilaminectomy Memory loss Neurogenic bladder PAF (paroxysmal atrial fibrillation) Parkinson's disease Sacral insufficiency fracture Spinal stenosis of lumbar region Urge incontinence of urine Surgical History History of back surgery History of tonsillectomy 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) Family History Unknown Alzheimer disease Sister Diabetes Cancer Other Family history non-contributory Social History Smoking Status: Former smoker Tobacco Type: Cigarettes Second Hand Exposure: No; Hx Alcohol Use: No Hx Substance Use: No Preferred Language: [place]an Communication Ability: Effective 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 Beliefs That Will Affect Care: None marital status: Current Living Situation: Spouse current occupational status: retired Feels Safe at Home: Yes Assistive Devices: Glasses Review of Systems Review of Systems: All systems reviewed & are unremarkable except as noted in HPI & below Physical Exam Constitutional: WD/WN, vitals as above + lethargic Eyes: EOM intact bilaterally; no conjunctival abnormality ENMT: external ear and nose normal, oropharynx normal Neck: trachea midline, no thyromegaly normal visual inspection Respiratory: normal respiratory effort, lungs clear to auscultation no respiratory distress Cardiovascular: RRR, no murmur, no edema Gastrointestinal (Abdomen): Inspection/Auscultation: abdomen normal to inspection; abdomen not distended Musculoskeletal: no cyanosis or clubbing, extremities motor strength 5/5 Skin: no rashes, warm and dry Neurologic: moves all extremities and awake Psychiatric: Orientation: alert, oriented to person and cooperative Results & Data Results & Data ([facility]) Vital Signs (Past 12 Hours) Vital Signs Temp Pulse Resp BP Pulse Ox 04/13/21 17:16 71 15 04/13/21 17:00 71 12 158/94 H 92 04/13/21 16:45 71 178/95 H 91 04/13/21 16:30 75 21 04/13/21 16:20 74 19 93 04/13/21 16:18 75 20 93 04/13/21 16:00 167/89 H 04/13/21 15:45 72 19 171/85 H 95 04/13/21 15:31 72 21 147/85 H 96 04/13/21 15:15 69 18 168/93 H 93 04/13/21 15:00 65 16 161/93 H 04/13/21 14:45 67 16 155/83 H 94 04/13/21 14:36 98 04/13/21 14:30 67 16 150/72 H 95 04/13/21 14:17 69 16 140/67 95 04/13/21 13:49 37.4 C 73 18 73/44 L 89 L Code Status & VTE Plan VTE Prophylaxis Plan VTE Prophylaxis will be ordered: Yes PG Care Time/CCT Total # of Minutes Spent Total Time Spent with Patient: Total time spent is greater than 50% in coordination of care (as documented) at patient's floor/unit and/or counseling patient: Coding Level of Care Code 58391 Initial Inpt Care Lvl 3 Diagnoses Spinal stenosis of lumbar region M48.061 Urge incontinence of urine N39.41 Parkinson's disease G20 PAF (paroxysmal atrial fibrillation) I48.0 Neurogenic bladder N31.9 Depression F32.9 Prostatic hypertrophy N40.0 Urinary tract infection N39.0 Hematuria presence: without hematuria Urinary tract infection type: site unspecified Pneumonia J18.9 Laterality: unspecified laterality Lung location: unspecified part of lung Pneumonia type: due to unspecified organism Acute hypotension I95.9 DVT prophylaxis Z29.9 Uncontrolled REM sleep behavior disorder G47.52 Hypothyroidism E03.9 Diarrhea R19.7 (1) Urinary tract infection Hematuria presence: without hematuria Urinary tract infection type: site unspecified Qualified Code(s): N39.0 - Urinary tract infection, site not specified (2) Pneumonia Laterality: unspecified laterality Lung location: unspecified part of lung Pneumonia type: due to unspecified organism Qualified Code(s): J18.9 - Pneumonia, unspecified organism
[2021-04-14] MEDS ORDERED: KETOCONAZOLE 2% CR 15 GM TUBE EXT PRN (00:18)
[2021-04-14] MEDS ORDERED: ONDANSETRON INJ 2 MG/ML 2 ML VIAL IV PRN (00:18)
[2021-04-14] MEDS ORDERED: ACETAMINOPHEN 325 MG TAB PO PRN (00:18)
[2021-04-14] MEDS ORDERED: MELATONIN 3 MG TAB PO PRN (00:46)
[2021-04-14] MEDS: DONEPEZIL HCL 10 MG TAB PO SCH ×2 (02:01→21:19)
[2021-04-14] MEDS: clonazePAM 1 MG TAB PO SCH ×2 (02:01→21:19)
[2021-04-14] MEDS: CARBIDOPA/LEVODOPA 50/200MG EXT REL TAB PO SCH ×2 (02:01→21:19)
[2021-04-14] MEDS: MEROPENEM 500 MG in SYRINGE 0 ML IV SCH ×4 (02:02→21:19)
[2021-04-14] MEDS: AZITHROMYCIN 250 MG in DEXTROSE 5% 250 ML IV SCH (02:02)
[2021-04-14] MEDS: ESCITALOPRAM OXALATE 10 MG TAB PO SCH ×2 (02:02→21:20)
[2021-04-14] MEDS: LEVOTHYROXINE SODIUM 50 MCG TABLET PO SCH (06:29)
[2021-04-14 08:01] LABS: Hematocrit (blood only) 30.1 % (42-52); Mean Corpuscular Hgb Conc 33.2 g/dL (32-36); Mean Corpuscular Volume 93.2 fL (80-100); Mean Platelet Volume 10.5 fL (7.4-10.4); Platelet Count 181 K/uL (130-400); RDW Coefficient of Variation 14.2 % (11.5-14.5); RDW Standard Deviation 48.6 fL (36.4-46.3); Red Blood Count 3.23 M/uL (4.7-6.1)
[2021-04-14 08:36] LABS: Albumin Globulin Ratio 0.7 (0.9-2); Albumin Level 2.3 gm/dl (3.4-5.0); BUN Creatinine Ratio 22.2 (10-20); Calcium 7.9 mg/dl (8.5-10.1); Creatinine Clr Calc Pharmacy 106.1 ml/min; Est GFR (African American) 109.4 ml/min; Est GFR (Non-African American) 94.4 ml/min; Globulin 3.4 gm/dl (2.5-4.0); Magnesium 1.8 mg/dl (1.8-2.4); Phosphorus 2.8 mg/dl (2.5-4.9); Potassium 3.5 mmol/L (3.5-5.1); Total Protein 5.7 gm/dl (6.4-8.2)
--- NOTE | 2021-04-14 09:04 | Hospitalist Progress Note ---
Date of Service April 14, 2021 Assessment & Plan (1) Pneumonia: Plan: CTA chest on 04/13 read with "Patchy bilateral centrilobular groundglass/consolidative opacities" concerning for infection. notes increased coughing with meals/eating/drinking, however review of imaging shows this to be slight, still feel primary issue is urinary source, +/- some aspiration pneumonitis but will cover for infectious - Meropenem will cover all typical lung bacteria as well as aspiration bacteria (Gram(-) and anaerobes). - Add azithromycin for atypical bacteria - MRSA swab - INFORMATION SYSTEMS ANALYST consult for possible aspiration. (2) Urinary tract infection: Plan: First diagnosed at a hospital in [place]. UA on admission to [facility] indicates possible infection, though unclear given color interfering with interpretation. maybe pyridium - urine culture showing <1000 - Follow urine and blood cultures (3) Acute hypotension: Plan: concern for sepsis as BP was as low as 70/40 on presentation to the ED; however, 2L IV fluid resuscitation, his BP has normalized. Given he was essentially sleeping for 2 days, I do wonder if his hypotension was almost entirely volume depletion mediated,concern for sepsis resolved - Also has history of orthostasis and syncope, so is on fludrocortisone per Dr. Bal. - Continue fludrocortisone. Given presently normal BP, will not increase or adjust for stress-dose steroids. - (4) Diarrhea: Plan: Several nocturnal episodes on Friday/. None since that night. - Hold Linzess, senna, and Miralax - C. diff ordered, but if not really having any in the last 2 days, unlikely to be C. diff (5) Parkinson's disease: Plan: Atypical variant. Follows with Dr. Alvarado. - Continue Sinemet as prescribed. - Continue donepezil (6) PAF (paroxysmal atrial fibrillation): Plan: Was in afib at [facility], but rate-controlled. Here his EKG appears to be sinus. - Not on anticoagulation at baseline - Continue beta-kennedi (7) Hypothyroidism: Plan: TSH was 2.4 in 11/2020. No signs/symptoms of hypo-/hyperthyroidism. - Continue home Synthroid 50 mcg (8) Uncontrolled REM sleep behavior disorder: Plan: Per , has 10+year history of REM sleep disorder. Without Klonopin, he will jump out of bed while sleeping. - Continue clonazepam - Continue melatonin (9) Spinal stenosis of lumbar region: Plan: Per , lidocaine patch helped significantly. (10) Urge incontinence of urine: Plan: CT a/p on admission showed "Prostatomegaly with findings suggestive of chronic bladder outlet obstruction." However, reports constant dribbling of urine (overflow incontience?). However, at [facility], she reports negative bladder scans. - Patient's declines a Kuo catheter, but willing to use condom catheters (11) Neurogenic bladder: Plan: Due to Parkinson's disease. - As above (12) Depression: Plan: - Continue fluoxetine (13) Prostatic hypertrophy: Plan: Noted on CT a/p; however, per , bladder scans were negative at [facility]. - Bladder scan daily and as needed (14) DVT prophylaxis: Plan: Lovenox 40 mg SQ daily Admission and Anticipated Discharge Date Admission Date: April 13, 2021 Subjective pt states he feels improved, discussed issues with urinary incontinence, preliminary urine culture is negative Review of Systems Review of Systems: Mild distress and fatigue no headache, no visual changes no speech or swallowing issues no chest pain, pressure or palpitations no shortness of breath, cough or wheezes no abdominal pain, nausea or vomiting, diarrhea or constipation Urinary incontinence and frequency no focal joint pain or swelling no back pain, CVA tenderness or radicular pain no bruising, bleeding or rashes no focal signs of weakness or numbness presented with altered sensation no complaints of anxiety or depression.. Physical Exam Physical Exam: The patient appeared well nourished and normally developed. Vital signs as documented. Head exam is normocephalic atraumatic Neck is without JVD, thyromegaly, or carotid bruits. Lungs are clear to auscultation, no focal loss of breath sounds Cardiac exam, Rhythm is regular.. No murmurs, rubs or gallops. Abdominal exam reveals normal bowel sounds, soft non tender, no masses Extremities are nonedematous and both pedal pulses are present Neurologic exam is alert and oriented x2, no focal loss of strength or sensation Skin is without bruises or rashes Psychologically is without concerns for anxiety or depression Results & Data Results & Data ([facility]) Vital Signs (Past 12 Hours) Vital Signs Temp Pulse Pulse Resp BP BP Pulse Ox 04/14/21 07:39 97.9 F 62 19 149/77 H 90 04/14/21 03:56 98.4 F 86 18 148/72 H 94 04/13/21 23:59 98.6 F 68 69 20 168/79 H 93 04/13/21 22:10 72 27 H 04/13/21 22:00 66 23 04/13/21 21:50 68 21 04/13/21 21:40 71 20 04/13/21 21:30 68 23 04/13/21 21:20 67 23 04/13/21 21:10 68 22 PG Care Time/CCT Total # of Minutes Spent Total Time Spent with Patient: Total time spent is greater than 50% in coordination of care (as documented) at patient's floor/unit and/or counseling patient: Coding Level of Care Code 28226 Subseq Hosp Care Lvl 3 Diagnoses Pneumonia J18.9 Laterality: unspecified laterality Lung location: unspecified part of lung Pneumonia type: due to unspecified organism Urinary tract infection N39.0 Hematuria presence: without hematuria Urinary tract infection type: site unspecified Acute hypotension I95.9 Diarrhea R19.7 Parkinson's disease G20 PAF (paroxysmal atrial fibrillation) I48.0 Hypothyroidism E03.9 Uncontrolled REM sleep behavior disorder G47.52 Spinal stenosis of lumbar region M48.061 Urge incontinence of urine N39.41 Neurogenic bladder N31.9 Depression F32.9 Prostatic hypertrophy N40.0 DVT prophylaxis Z29.9 (1) Urinary tract infection Hematuria presence: without hematuria Urinary tract infection type: site unspecified Qualified Code(s): N39.0 - Urinary tract infection, site not specified (2) Pneumonia Laterality: unspecified laterality Lung location: unspecified part of lung Pneumonia type: due to unspecified organism Qualified Code(s): J18.9 - Pneumonia, unspecified organism
[2021-04-14] MEDS: ENOXAPARIN INJ 40 MG/0.4 ML SYR SQ SCH ×2 (10:03→10:10)
[2021-04-14] MEDS: CARBIDOPA/LEVODOPA 25/100MG TAB PO SCH ×3 (10:03→16:48)
[2021-04-14] MEDS: FLUDROCORTISONE ACETATE 0.1 MG TAB PO SCH (10:04)
[2021-04-14] MEDS: METOPROLOL SUCC 50MG EXT REL TAB PO SCH (10:04)
[2021-04-14] MEDS: ATORVASTATIN 20 MG TAB PO SCH (10:04)
[2021-04-14] MEDS: CETIRIZINE HCL 10 MG TABLET PO SCH (10:04)
[2021-04-14] MEDS: LIDOCAINE 5% 1 PATCH TD SCH (21:20)
[2021-04-15] MEDS: MEROPENEM 500 MG in SYRINGE 0 ML IV SCH ×4 (01:15→20:26)
[2021-04-15] MEDS: AZITHROMYCIN 250 MG in DEXTROSE 5% 250 ML IV SCH (01:15)
[2021-04-15] MEDS: LEVOTHYROXINE SODIUM 50 MCG TABLET PO SCH (06:31)
[2021-04-15] MEDS: ENOXAPARIN INJ 40 MG/0.4 ML SYR SQ SCH (08:00)
[2021-04-15] MEDS: ATORVASTATIN 20 MG TAB PO SCH (08:05)
[2021-04-15] MEDS: METOPROLOL SUCC 50MG EXT REL TAB PO SCH (08:05)
[2021-04-15] MEDS: FLUDROCORTISONE ACETATE 0.1 MG TAB PO SCH (08:05)
[2021-04-15] MEDS: CETIRIZINE HCL 10 MG TABLET PO SCH (08:06)
[2021-04-15] MEDS: CARBIDOPA/LEVODOPA 25/100MG TAB PO SCH ×3 (08:06→17:24)
--- NOTE | 2021-04-15 08:18 | Hospitalist Progress Note ---
Date of Service April 15, 2021 Assessment & Plan (1) Pneumonia: Plan: CTA chest on 04/13 read with "Patchy bilateral centrilobular groundglass/consolidative opacities" concerning for infection. notes increased coughing with meals/eating/drinking, although pre hospital c/o urinary incont and dysuria, culture is negative, - Meropenem will cover all typical lung bacteria as well as aspiration bacteria (Gram(-) and anaerobes). - Add azithromycin for atypical bacteria, will complete 10 days course for hypostatic pneumonia, or HAP -Effusions are present, if warranted to consider thoracentesis - HIDE COOKING OPERATOR consult for possible aspiration. (2) Urinary tract infection: Plan: diagnosed at a hospital in [place]. UA on admission to [facility] abnormal, though unclear given color interfering with interpretation. maybe pyridium - urine culture showing <1000 -urine infection ruled out (3) Acute hypotension: Plan: concern for sepsis as BP was as low as 70/40 on presentation to the ED; however, 2L IV fluid resuscitation, his BP has normalized. Given he was essentially sleeping for 2 days, I do wonder if his hypotension was almost entirely volume depletion mediated,concern for sepsis resolved - Also has history of orthostasis and syncope, so is on fludrocortisone per Dr. Bal. - Continue fludrocortisone. Given presently normal BP, will not increase or adjust for stress-dose steroids. - (4) Diarrhea: Plan: Several nocturnal episodes on Friday/. None since that night. - Hold Linzess, senna, and Miralax - resolved with holding meds (5) Parkinson's disease: Plan: Atypical variant. Follows with Dr. Alvarado. - Continue Sinemet as prescribed. - Continue donepezil (6) PAF (paroxysmal atrial fibrillation): Plan: Was in afib at [facility], but rate-controlled. Here his EKG appears to be sinus. - Not on anticoagulation at baseline - Continue beta-kennedi (7) Hypothyroidism: Plan: TSH was 2.4 in 11/2020. No signs/symptoms of hypo-/hyperthyroidism. - Continue home Synthroid 50 mcg (8) Uncontrolled REM sleep behavior disorder: Plan: Per , has 10+year history of REM sleep disorder. Without Klonopin, he will jump out of bed while sleeping. - Continue clonazepam - Continue melatonin (9) Spinal stenosis of lumbar region: Plan: Per , lidocaine patch helped significantly. (10) Urge incontinence of urine: Plan: CT a/p on admission showed "Prostatomegaly with findings suggestive of chronic bladder outlet obstruction." However, reports constant dribbling of urine (overflow incontience?). However, at [facility], she reports negative bladder scans. - Patient's declines a Kuo catheter, but willing to use condom catheters (11) Neurogenic bladder: Plan: Due to Parkinson's disease. - As above (12) Depression: Plan: - Continue fluoxetine (13) Prostatic hypertrophy: Plan: Noted on CT a/p; however, per , bladder scans were negative at [facility]. - Bladder scan daily and as needed -urology follow up as out pt Arron in the past (14) DVT prophylaxis: Plan: Lovenox 40 mg SQ daily Admission and Anticipated Discharge Date Admission Date: April 13, 2021 Subjective pt states he feels improved, discussed issues with urinary incontinence, preliminary urine culture is negative Review of Systems Review of Systems: Mild distress and fatigue no headache, no visual changes no speech or swallowing issues no chest pain, pressure or palpitations no shortness of breath, cough or wheezes no abdominal pain, nausea or vomiting, diarrhea or constipation Urinary incontinence and frequency no focal joint pain or swelling no back pain, CVA tenderness or radicular pain no bruising, bleeding or rashes no focal signs of weakness or numbness presented with altered sensation no complaints of anxiety or depression.. Physical Exam Physical Exam: The patient appeared well nourished and normally developed. Vital signs as documented. Head exam is normocephalic atraumatic Neck is without JVD, thyromegaly, or carotid bruits. Lungs are clear to auscultation, no focal loss of breath sounds Cardiac exam, Rhythm is regular.. No murmurs, rubs or gallops. Abdominal exam reveals normal bowel sounds, soft non tender, no masses Extremities are nonedematous and both pedal pulses are present Neurologic exam is alert and oriented x2, no focal loss of strength or sensation Skin is without bruises or rashes Psychologically is without concerns for anxiety or depression Results & Data Results & Data ([facility]) Vital Signs (Past 12 Hours) Vital Signs Temp Pulse Pulse Resp BP Pulse Ox 04/15/21 07:59 97.7 F 67 18 166/83 H 90 04/15/21 04:00 97.7 F 66 18 156/64 H 90 04/14/21 23:23 67 04/14/21 23:11 98.2 F 69 18 186/89 H 90 PG Care Time/CCT Total # of Minutes Spent Total Time Spent with Patient: Total time spent is greater than 50% in coordination of care (as documented) at patient's floor/unit and/or counseling patient: Coding Level of Care Code 92049 Subseq Hosp Care Lvl 3 Diagnoses Pneumonia J18.9 Laterality: unspecified laterality Lung location: unspecified part of lung Pneumonia type: due to unspecified organism Urinary tract infection N39.0 Hematuria presence: without hematuria Urinary tract infection type: site unspecified Acute hypotension I95.9 Diarrhea R19.7 Parkinson's disease G20 PAF (paroxysmal atrial fibrillation) I48.0 Hypothyroidism E03.9 Uncontrolled REM sleep behavior disorder G47.52 Spinal stenosis of lumbar region M48.061 Urge incontinence of urine N39.41 Neurogenic bladder N31.9 Depression F32.9 Prostatic hypertrophy N40.0 DVT prophylaxis Z29.9 (1) Urinary tract infection Hematuria presence: without hematuria Urinary tract infection type: site unspecified Qualified Code(s): N39.0 - Urinary tract infection, site not specified (2) Pneumonia Laterality: unspecified laterality Lung location: unspecified part of lung Pneumonia type: due to unspecified organism Qualified Code(s): J18.9 - Pneumonia, unspecified organism
[2021-04-15] MEDS: ESCITALOPRAM OXALATE 10 MG TAB PO SCH (20:26)
[2021-04-15] MEDS: DONEPEZIL HCL 10 MG TAB PO SCH (20:26)
[2021-04-15] MEDS: CARBIDOPA/LEVODOPA 50/200MG EXT REL TAB PO SCH (20:26)
[2021-04-15] MEDS: clonazePAM 1 MG TAB PO SCH (20:26)
[2021-04-15] MEDS: LIDOCAINE 5% 1 PATCH TD SCH (20:31)
[2021-04-16] MEDS: AZITHROMYCIN 250 MG in DEXTROSE 5% 250 ML IV SCH (02:05)
[2021-04-16] MEDS: MEROPENEM 500 MG in SYRINGE 0 ML IV SCH ×4 (02:05→21:39)
[2021-04-16] MEDS: LEVOTHYROXINE SODIUM 50 MCG TABLET PO SCH (05:50)
[2021-04-16] MEDS: CETIRIZINE HCL 10 MG TABLET PO SCH (08:25)
[2021-04-16] MEDS: METOPROLOL SUCC 50MG EXT REL TAB PO SCH (08:25)
[2021-04-16] MEDS: FLUDROCORTISONE ACETATE 0.1 MG TAB PO SCH (08:25)
[2021-04-16] MEDS: CARBIDOPA/LEVODOPA 25/100MG TAB PO SCH ×4 (08:25→21:41)
[2021-04-16] MEDS: ATORVASTATIN 20 MG TAB PO SCH (08:25)
[2021-04-16] MEDS: ENOXAPARIN INJ 40 MG/0.4 ML SYR SQ SCH (08:26)
--- NOTE | 2021-04-16 09:21 | Urology Consultation ---
Date of Consultation April 16, 2021 Assessment & Plan (1) Urinary tract infection: 80 yo M with multiple comorbidities admitted for hypotension and presumed pneumonia and UTI. - Plan of care reviewed with Dr. Cortez, urologist vibration engineer - Afebrile, nontoxic, lab work reviewed - creatinine and WBC within normal limits on 04/14 - CTAP reviewed and demonstrates prostatomegaly and chronic bladder outlet obstruction - Pt with recent Klebsiella UTI at outside facility, question acute UTI vs a cute/chronic prostatitis - Urine culture during admission no growth, BCx showing no growth to date - Currently on IV Azithromycin and Meropenem for suspected pneumonia - Continue supportive care, antibiotics, and management per primary team - Recommend course of PO antibiotics upon discharge for possible prostatitis given recent UTI, hx of PACHECO - Recommend bowel regimen to normalize bowels - Will arrange outpatient follow-up with our service outpatient Thank you for allowing us to participate in the acute care of Mr. Barba. Please reconsult us with additional questions, concerns or changes in patient status. History of Present Illness Reason for Consultation: Concern for prostatitis Requesting Physician: Dr. Doe Attending Physician: Mahendra Rome MD History of Present Illness 80 yo M with past medical history of Parkinson's disease, BPH with obstruction, paroxysmal atrial fibrillation, hypothyroidism, and spinal stenosis admitted for hypotension, presumed pneumonia and UTI. Patient is known to our service, follows with Dr. Heller for history of BPH and urge incontinence. He presented to [facility] ED on 04/13/21 with fever, weakness, and fatigue. [place] was recently [place] a syncopal episode. He was found to have mild bradycardia and in atrial fibrillation. He then developed a fever during his observation and was found to have a Klebsiella UTI. Per notes, he was treated with IV Zosyn, then switched to Ceftriaxone prior to transitioning to PO cefdinir. He was discharged to home, but continued to have weakness, fatigue, and then developed a fever at home prompting ER evaluation. He was afebrile on arrival. He was noted to have hypotension and hypoxia. Lab work showed creatinine 0.98, WBC 8.10. UA largely uninterpreted due to urine color, noted 10-30 RBCs, >30 WBCs, 1+ bacteria. Urine and blood cultures obtained. ER treatment included IV fluids and Meropenem. CTAP w/ IV con reviewed and interpreted, showed prostatomegaly and chronic bladder outlet obstruction. Chest CT was concerning for possible pneumonia. He was admitted to hospital medicine service for further evaluation and management. Our service is consulted for con cern of prostatitis. Chart review: Afebrile Creatinine (04/14) - 0.63 WBC (04/14) - 6.30 Hgb (04/14) - 10.0 UC&S 04/13 - no growth BCx 04/13 - NGTD On IV Azithromycin, Meropenem Imaging CT angio chest PE protocol, CT abd pelvis IV con only IMPRESSION: 1. No pulmonary emboli. 2. Cardiomegaly with small pericardial effusion, interstitial pulmonary edema with layering pleural effusions. 3. Patchy bilateral centrilobular groundglass/consolidative opacities are suggestive of associated alveolar pulmonary edema versus superimposed pneumonia. 4. Mild generalized body wall edema with trace free pelvic fluid. 5. No bowel obstruction or bowel wall thickening. 6. Prostamegaly with findings suggestive of chronic bladder outlet obstruction. Patient seen and examined at bedside. He is awake, alert and resting in bed. He is feeling better since admission, but continues to feel weak. No abdominal, flank or suprapubic pain. His urinary symptoms are stable, he reports he is incontinent at baseline. He utilizes condom catheters. Condom catheter is intact, patent and draining clear yellow urine. No dysuria or hematuria. Last bowel movement was 3 days ago. He has not been on his Linzess since admission. Tolerating diet, no nausea or vomiting. No fever or chills. No additional concerns today. Allergies Allergy/AdvReac Type Severity Reaction Status Date / Time diphenhydramine AdvReac Unknown Verified 04/13/21 18:33 [From Johana] Home Medications Medication Instructions Recorded Confirmed Type atorvastatin 20 mg tablet (Lipitor) 20 mg PO QAM tab 05/11/19 04/13/21 History cholecalciferol (vitamin D3) 50 2,000 unit PO HS cap 05/11/19 04/13/21 History mcg (2,000 unit) capsule (Vitamin D3) clonazepam 1 mg tablet 2 mg PO HS #45 tab 05/11/19 04/13/21 History donepezil 10 mg tablet (Aricept) 10 mg PO HS tab 05/11/19 04/13/21 History escitalopram oxalate 10 mg tablet 10 mg PO HS 06/30/19 04/13/21 History (Lexapro) fludrocortisone 0.1 mg tablet 0.2 mg PO QAM 06/30/19 04/13/21 History levothyroxine 50 mcg tablet 50 mcg PO QAM 06/30/19 04/13/21 History (Synthroid) linaclotide 290 mcg capsule 290 mcg PO QPM 06/30/19 04/13/21 History (Linzess) melatonin 10 mg tablet 10 mg PO HS 06/30/19 04/13/21 History multivitamin 1 tab PO PM 06/30/19 04/13/21 History potassium chloride 10 mEq 10 meq PO BID 06/30/19 04/13/21 History capsule,extended release polyethylene glycol 3350 17 8.5 gm PO DAILY PRN 07/14/19 04/13/21 History gram/dose oral powder (Miralax) carbidopa 25 mg-levodopa 100 mg 2 tab PO BID 08/20/19 04/13/21 History tablet (Sinemet) sennosides 8.6 mg tablet (senna) 17.2 mg PO BID tab 11/10/19 04/13/21 History carbidopa 25 mg-levodopa 100 mg 2.5 tab PO 0900 12/04/20 04/13/21 History tablet cetirizine 10 mg tablet (Zyrtec) 10 mg PO QAM 12/04/20 04/13/21 History metoprolol succinate 50 mg 50 mg PO QAM 01/22/21 04/13/21 History tablet,extended release 24 hr carbidopa ER 50 mg-levodopa 200 mg 1 tab PO DAILY@2100 04/13/21 04/13/21 History tablet,extended release cefdinir 300 mg capsule 300 mg PO BID 04/13/21 04/13/21 History ketoconazole 2 % topical cream 1 applic TOP BID PRN 04/13/21 04/13/21 History Patient History Medical History Benign prostatic hyperplasia with urinary obstruction Chronic constipation Closed head injury Depression Hypotension Hypothyroidism Lumbar pain Lumbar post-laminectomy syndrome Prior left L3-4 hemilaminectomy Memory loss Neurogenic bladder PAF (paroxysmal atrial fibrillation) Parkinson's disease Sacral insufficiency fracture Spinal stenosis of lumbar region Urge incontinence of urine Surgical History History of back surgery History of tonsillectomy 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) Family History Unknown Alzheimer disease Sister Diabetes Cancer Other Family history non-contributory Social History Smoking Status: Never smoker Tobacco Type: Cigarettes Second Hand Exposure: No; Hx Alcohol Use: No Hx Substance Use: No Preferred Language: Moroccan Communication Ability: Effective Paramedic Instructor Required: No Beliefs That Will Affect Care: None marital status: Current Living Situation: Spouse and Family current occupational status: retired Feels Safe at Home: Yes Assistive Devices: Walker Review of Systems Constitutional: as per Subjective / HPI Eyes: no problem reported Respiratory: + cough Cardiovascular: no problem reported Gastrointestinal: as per Subjective / HPI Genitourinary: + as per Subjective / HPI Musculoskeletal: as per Subjective / HPI Neurologic: as per Subjective / HPI Physical Exam Constitutional: well developed and well nourished; no acute distress and not ill appearing Respiratory: normal respiratory effort and able to speak in complete sentences; no respiratory distress and no labored breathing Cardiovascular: Extremities: no pedal edema Gastrointestinal (Abdomen): Inspection/Auscultation: abdomen normal to inspection; abdomen not distended Percussion/Palpation: abdomen soft; abdomen nontender Musculoskeletal: Head/Neck/Chest: normocephalic and head atraumatic Neurologic: awake Psychiatric: Orientation: alert and oriented x 3 Genitourinary: Condom catheter intact, patent and draining clear yellow urine Results & Data ([facility]) Vital Signs (Past 12 Hours) Vital Signs Temp Pulse Pulse Resp BP Pulse Ox 04/16/21 07:21 36.4 C L 63 20 169/78 H 90 04/16/21 07:14 54 L 04/16/21 04:00 36.6 C 60 18 151/73 H 91 04/15/21 23:59 61 04/15/21 23:00 36.5 C 67 18 175/91 H 92 PG Care Time/CCT Total # of Minutes Spent Total Time Spent with Patient: Total time spent is greater than 50% in coordination of care (as documented) at patient's floor/unit and/or counseling patient: Coding Level of Care Code 10723 Initial Inpt Care Lvl 3 Diagnoses Urinary tract infection N39.0 Hematuria presence: without hematuria Urinary tract infection type: site unspecified (1) Urinary tract infection Hematuria presence: without hematuria Urinary tract infection type: site unspecified Qualified Code(s): N39.0 - Urinary tract infection, site not specified
[2021-04-16] MEDS: POLYETHYLENE (MIRALAX) 17 GM PACK PO SCH (14:34)
--- NOTE | 2021-04-16 18:36 | Hospitalist Progress Note ---
Date of Service April 16, 2021 Assessment & Plan (1) Pneumonia: Plan: CTA chest on 04/13 read with "Patchy bilateral centrilobular groundglass/consolidative opacities" concerning for infection. notes increased coughing with meals/eating/drinking. MRSA swab negative on admission. - Meropenem will cover all typical lung bacteria as well as aspiration bacteria (Gram(-) and anaerobes). - Add azithromycin for atypical bacteria => Can switch to Augmentin on discharge - PRESSER COTTON GINNING consulted for possible aspiration. Seen on 04/14 with relatively low suspision for aspiration. Recs include: * Alternate solids and liquids * Fully alert and upright for meals * Single bites / small sips / slow rate (2) Urinary tract infection: Plan: First diagnosed at a hospital in [place]. UA on admission to [facility] indicates possible infection, though unclear given color interfering with interpretation. - Abx as above - Follow urine and blood cultures -> Negative so far. (3) Acute hypotension: Plan: BP was as low as 70/40 on presentation to the ED; however, 2L IV fluid resuscitation, his BP has normalized. Given he was essentially sleeping for 2 days, I do wonder if his hypotension was almost entirely volume depletion mediated, as he no longer has signs of sepsis. - Also has history of orthostasis and syncope, so is on fludrocortisone per Dr. Bal. - Continue fludrocortisone. Given presently normal BP, will not increase or adjust for stress-dose steroids. - Monitor BP -> Stable today. (4) Diarrhea: Plan: Several nocturnal episodes on Friday/. None since that night. - Held Linzess, senna, and Miralax - Now with constipation. Will restart Miralax and senna. (5) Parkinson's disease: Plan: Atypical variant. Follows with Dr. Alvarado. - Continue Sinemet as prescribed. - Continue donepezil (6) PAF (paroxysmal atrial fibrillation): Plan: Was in afib at [facility], but rate-controlled. Here his EKG appears to be sinus. - Not on anticoagulation at baseline - Continue beta-kennedi (7) Hypothyroidism: Plan: TSH was 2.4 in 11/2020. No signs/symptoms of hypo-/hyperthyroidism. - Continue home Synthroid 50 mcg (8) Uncontrolled REM sleep behavior disorder: Plan: Per , has 10+year history of REM sleep disorder. Without Klonopin, he will jump out of bed while sleeping. - Continue clonazepam - Continue melatonin (9) Spinal stenosis of lumbar region: Plan: Per , lidocaine patch helped significantly. (10) Urge incontinence of urine: Plan: CT a/p on admission showed "Prostatomegaly with findings suggestive of chronic bladder outlet obstruction." However, reports constant dribbling of urine (overflow incontience?). However, at [facility], she reports negative bladder scans. - Patient's declines a Kuo catheter, but willing to use condom catheters (11) Neurogenic bladder: Plan: Due to Parkinson's disease. - As above (12) Depression: Plan: - Continue fluoxetine (13) Prostatic hypertrophy: Plan: Noted on CT a/p; however, per , bladder scans were negative at [facility]. - Bladder scan daily and as needed (14) DVT prophylaxis: Plan: Lovenox 40 mg SQ daily Admission and Anticipated Discharge Date Admission Date: April 13, 2021 Subjective Feeling better today. Reports no fevers/chills, chest pain, shortness of breath, abdominal pain, nausea, or vomiting. Physical Exam Constitutional: WD/WN, vitals as above not lethargic Eyes: EOM intact bilaterally; no conjunctival abnormality ENMT: external ear and nose normal, oropharynx normal Neck: trachea midline, no thyromegaly normal visual inspection Respiratory: normal respiratory effort, lungs clear to auscultation no respiratory distress Cardiovascular: RRR, no murmur, no edema Gastrointestinal (Abdomen): Inspection/Auscultation: abdomen normal to inspection; abdomen not distended Musculoskeletal: no cyanosis or clubbing, extremities motor strength 5/5 Skin: no rashes, warm and dry Neurologic: moves all extremities and awake Psychiatric: Orientation: alert, oriented to person and cooperative Results & Data Results & Data ([facility]) Vital Signs (Past 12 Hours) Vital Signs Temp Pulse Pulse Resp BP BP Pulse Ox 04/16/21 16:00 36.3 C L 64 20 124/67 95 04/16/21 15:31 64 04/16/21 11:23 36.5 C 60 20 142/72 H 92 04/16/21 07:21 36.4 C L 63 20 169/78 H 90 08/02/21 07:14 54 L PG Care Time/CCT Total # of Minutes Spent Total Time Spent with Patient: Total time spent is greater than 50% in coordination of care (as documented) at patient's floor/unit and/or counseling patient: Coding Level of Care Code 05009 Subseq Hosp Care Lvl 2 Diagnoses Pneumonia J18.9 Laterality: unspecified laterality Lung location: unspecified part of lung Pneumonia type: due to unspecified organism Urinary tract infection N39.0 Hematuria presence: without hematuria Urinary tract infection type: site unspecified Acute hypotension I95.9 Diarrhea R19.7 Parkinson's disease G20 PAF (paroxysmal atrial fibrillation) I48.0 Hypothyroidism E03.9 Uncontrolled REM sleep behavior disorder G47.52 Spinal stenosis of lumbar region M48.061 Urge incontinence of urine N39.41 Neurogenic bladder N31.9 Depression F32.9 Prostatic hypertrophy N40.0 DVT prophylaxis Z29.9 (1) Pneumonia Laterality: unspecified laterality Lung location: unspecified part of lung Pneumonia type: due to unspecified organism Qualified Code(s): J18.9 - Pneumonia, unspecified organism (2) Urinary tract infection Hematuria presence: without hematuria Urinary tract infection type: site unspecified Qualified Code(s): N39.0 - Urinary tract infection, site not specified
[2021-04-16] MEDS: LIDOCAINE 5% 1 PATCH TD SCH (21:22)
[2021-04-16] MEDS: clonazePAM 1 MG TAB PO SCH (21:39)
[2021-04-16] MEDS: ESCITALOPRAM OXALATE 10 MG TAB PO SCH (21:42)
[2021-04-16] MEDS: DONEPEZIL HCL 10 MG TAB PO SCH (21:43)
[2021-04-16] MEDS: CARBIDOPA/LEVODOPA 50/200MG EXT REL TAB PO SCH (21:43)
[2021-04-16] MEDS: SENNA 8.6 MG TAB PO SCH (21:44)
[2021-04-17] MEDS: AZITHROMYCIN 250 MG in DEXTROSE 5% 250 ML IV SCH (01:45)
[2021-04-17] MEDS: MEROPENEM 500 MG in SYRINGE 0 ML IV SCH ×4 (01:46→20:14)
[2021-04-17] MEDS: LEVOTHYROXINE SODIUM 50 MCG TABLET PO SCH (06:40)
[2021-04-17 09:08] LABS: Hematocrit (blood only) 33.4 % (42-52); Hemoglobin 11.2 g/dL (14.0-18.0); Mean Corpuscular Hemoglobin 30.8 pg (25-34); Mean Corpuscular Hgb Conc 33.5 g/dL (32-36); Mean Corpuscular Volume 91.8 fL (80-100); Mean Platelet Volume 9.3 fL (7.4-10.4); Platelet Count 240 K/uL (130-400); RDW Coefficient of Variation 13.5 % (11.5-14.5); RDW Standard Deviation 45.3 fL (36.4-46.3); Red Blood Count 3.64 M/uL (4.7-6.1); White Blood Count 5.53 K/uL (4.8-10.8)
[2021-04-17] MEDS: LIDOCAINE 5% 1 PATCH TD SCH (09:15)
[2021-04-17] MEDS: SENNA 8.6 MG TAB PO SCH ×2 (09:15→20:15)
[2021-04-17] MEDS: FLUDROCORTISONE ACETATE 0.1 MG TAB PO SCH (09:16)
[2021-04-17] MEDS: ENOXAPARIN INJ 40 MG/0.4 ML SYR SQ SCH (09:16)
[2021-04-17] MEDS: POLYETHYLENE (MIRALAX) 17 GM PACK PO SCH (09:16)
[2021-04-17] MEDS: METOPROLOL SUCC 50MG EXT REL TAB PO SCH (09:16)
[2021-04-17] MEDS: CETIRIZINE HCL 10 MG TABLET PO SCH (09:16)
[2021-04-17] MEDS: ATORVASTATIN 20 MG TAB PO SCH (09:16)
[2021-04-17 09:39] LABS: BUN Creatinine Ratio 17.9 (10-20); Calcium 8.5 mg/dl (8.5-10.1); Creatinine Clr Calc Pharmacy 95.5 ml/min; Est GFR (African American) 104.8 ml/min; Est GFR (Non-African American) 90.4 ml/min; Potassium 3.6 mmol/L (3.5-5.1)
[2021-04-17] MEDS: CARBIDOPA/LEVODOPA 25/100MG TAB PO SCH ×2 (13:15→17:21)
[2021-04-17] MEDS ORDERED: NORMOSOL-R 500 ML IV ONE (17:59)
--- NOTE | 2021-04-17 18:10 | Hospitalist Progress Note ---
Date of Service April 17, 2021 Assessment & Plan (1) Pneumonia: Plan: CTA chest on 04/13 read with "Patchy bilateral centrilobular groundglass/consolidative opacities" concerning for infection. notes increased coughing with meals/eating/drinking. MRSA swab negative on admission. - Meropenem will cover all typical lung bacteria as well as aspiration bacteria (Gram(-) and anaerobes). (End date: 04/20/2021) - Added azithromycin for atypical bacteria (End date: 04/18/2021) => Can switch to Augmentin on discharge - PARAFFIN MACHINE OPERATOR consulted for possible aspiration. Seen on 04/14 with relatively low suspision for aspiration. Recs include: * Alternate solids and liquids * Fully alert and upright for meals * Single bites / small sips / slow rate (2) Urinary tract infection: Plan: First diagnosed at a hospital in [place]. UA on admission to [facility] indicates possible infection, though unclear given color interfering with interpretation. - Abx as above - Follow urine and blood cultures -> Negative so far. (3) Acute hypotension: Plan: BP was as low as 70/40 on presentation to the ED; however, 2L IV fluid resuscitation, his BP has normalized. Given he was essentially sleeping for 2 days, I do wonder if his hypotension was almost entirely volume depletion mediated, as he no longer has signs of sepsis. - Also has history of orthostasis and syncope, so is on fludrocortisone per Dr. Bal. - Continue fludrocortisone. Given presently normal BP, will not increase or adjust for stress-dose steroids. - Monitor BP -> Lower today. Will give bolus of IV fluids. (4) Diarrhea: Plan: Several nocturnal episodes on Friday/. None since that night. - Held Linzess, senna, and Miralax - Now with constipation. Restarted Miralax and senna on 04/16. (5) Parkinson's disease: Plan: Atypical variant. Follows with Dr. Alvarado. Mornings are the worst per the patient and with him having trouble with mobility and energy. - Continue Sinemet as prescribed. - Continue donepezil (6) PAF (paroxysmal atrial fibrillation): Plan: Was in afib at [facility], but rate-controlled. Here his EKG appears to be sinus. - Not on anticoagulation at baseline - Continue beta-kennedi (7) Hypothyroidism: Plan: TSH was 2.4 in 11/2020. No signs/symptoms of hypo-/hyperthyroidism. - Continue home Synthroid 50 mcg (8) Uncontrolled REM sleep behavior disorder: Plan: Per , has 10+year history of REM sleep disorder. Without Klonopin, he will jump out of bed while sleeping. - Continue clonazepam - Continue melatonin (9) Spinal stenosis of lumbar region: Plan: Per , lidocaine patch helped significantly. (10) Urge incontinence of urine: Plan: CT a/p on admission showed "Prostatomegaly with findings suggestive of chronic bladder outlet obstruction." However, reports constant dribbling of urine (overflow incontience?). However, at [facility], she reports negative bladder scans. - Patient's declines a Kuo catheter, but willing to use condom catheters (11) Neurogenic bladder: Plan: Due to Parkinson's disease. - As above (12) Depression: Plan: - Continue fluoxetine (13) Prostatic hypertrophy: Plan: Noted on CT a/p; however, per , bladder scans were negative at [facility]. - Bladder scan daily and as needed (14) DVT prophylaxis: Plan: Lovenox 40 mg SQ daily Admission and Anticipated Discharge Date Admission Date: April 13, 2021 Subjective Feeling better today. Reports no fevers/chills, chest pain, shortness of breath, abdominal pain, nausea, or vomiting. Physical Exam Constitutional: WD/WN, vitals as above not lethargic Eyes: EOM intact bilaterally; no conjunctival abnormality ENMT: external ear and nose normal, oropharynx normal Neck: trachea midline, no thyromegaly normal visual inspection Respiratory: normal respiratory effort, lungs clear to auscultation no respiratory distress Cardiovascular: RRR, no murmur, no edema Gastrointestinal (Abdomen): Inspection/Auscultation: abdomen normal to inspection; abdomen not distended Musculoskeletal: no cyanosis or clubbing, extremities motor strength 5/5 Skin: no rashes, warm and dry Neurologic: moves all extremities and awake Psychiatric: Orientation: alert, oriented to person and cooperative Results & Data Results & Data ([facility]) Vital Signs (Past 12 Hours) Vital Signs Temp Pulse Pulse Resp BP BP Pulse Ox 04/17/21 15:40 36.4 C L 57 L 20 72/43 L 95 04/17/21 15:12 60 04/17/21 12:40 36.5 C 63 20 177/82 H 94 04/17/21 07:43 36.4 C L 64 16 156/74 H 90 04/17/21 07:37 63 04/17/21 07:28 36.7 C 65 20 154/74 H 90 PG Care Time/CCT Total # of Minutes Spent Total Time Spent with Patient: Total time spent is greater than 50% in coordination of care (as documented) at patient's floor/unit and/or counseling patient: Coding Level of Care Code 84754 Subseq Hosp Care Lvl 2 Diagnoses Pneumonia J18.9 Laterality: unspecified laterality Lung location: unspecified part of lung Pneumonia type: due to unspecified organism Urinary tract infection N39.0 Hematuria presence: without hematuria Urinary tract infection type: site unspecified Acute hypotension I95.9 Diarrhea R19.7 Parkinson's disease G20 PAF (paroxysmal atrial fibrillation) I48.0 Hypothyroidism E03.9 Uncontrolled REM sleep behavior disorder G47.52 Spinal stenosis of lumbar region M48.061 Urge incontinence of urine N39.41 Neurogenic bladder N31.9 Depression F32.9 Prostatic hypertrophy N40.0 DVT prophylaxis Z29.9 (1) Pneumonia Laterality: unspecified laterality Lung location: unspecified part of lung Pneumonia type: due to unspecified organism Qualified Code(s): J18.9 - Pneumonia, unspecified organism (2) Urinary tract infection Hematuria presence: without hematuria Urinary tract infection type: site unspecified Qualified Code(s): N39.0 - Urinary tract infection, site not specified
[2021-04-17] MEDS: DONEPEZIL HCL 10 MG TAB PO SCH (20:15)
[2021-04-17] MEDS: CARBIDOPA/LEVODOPA 50/200MG EXT REL TAB PO SCH (20:16)
[2021-04-17] MEDS: ESCITALOPRAM OXALATE 10 MG TAB PO SCH (20:16)
[2021-04-17] MEDS: clonazePAM 1 MG TAB PO SCH (20:19)
[2021-04-18] MEDS: AZITHROMYCIN 250 MG in DEXTROSE 5% 250 ML IV SCH (00:52)
[2021-04-18] MEDS: MEROPENEM 500 MG in SYRINGE 0 ML IV SCH ×4 (02:49→21:04)
[2021-04-18] MEDS: LEVOTHYROXINE SODIUM 50 MCG TABLET PO SCH (06:17)
[2021-04-18] MEDS: CETIRIZINE HCL 10 MG TABLET PO SCH (08:37)
[2021-04-18] MEDS: METOPROLOL SUCC 50MG EXT REL TAB PO SCH (08:37)
[2021-04-18] MEDS: FLUDROCORTISONE ACETATE 0.1 MG TAB PO SCH (08:37)
[2021-04-18] MEDS: CARBIDOPA/LEVODOPA 25/100MG TAB PO SCH ×3 (08:38→16:03)
[2021-04-18] MEDS: ENOXAPARIN INJ 40 MG/0.4 ML SYR SQ SCH (08:38)
[2021-04-18] MEDS: SENNA 8.6 MG TAB PO SCH ×2 (08:38→21:05)
[2021-04-18] MEDS: ATORVASTATIN 20 MG TAB PO SCH (08:39)
[2021-04-18] MEDS: POLYETHYLENE (MIRALAX) 17 GM PACK PO SCH (08:39)
--- NOTE | 2021-04-18 16:12 | Hospitalist Progress Note ---
Date of Service April 18, 2021 Assessment & Plan (1) Pneumonia: Plan: CTA chest on 04/13 read with "Patchy bilateral centrilobular groundglass/consolidative opacities" concerning for infection. notes increased coughing with meals/eating/drinking. MRSA swab negative on admission. - Meropenem will cover all typical lung bacteria as well as aspiration bacteria (Gram(-) and anaerobes). (End date: 04/20/2021) - Added azithromycin for atypical bacteria (End date: 04/18/2021) => Can switch to Augmentin on discharge - Still breathing well. - ROOFING SUPERINTENDENT consulted for possible aspiration. Seen on 04/14 with relatively low suspision for aspiration. Recs include: * Alternate solids and liquids * Fully alert and upright for meals * Single bites / small sips / slow rate (2) Urinary tract infection: Plan: First diagnosed at a hospital in [place]. UA on admission to [facility] indicates possible infection, though unclear given color interfering with interpretation. - Abx as above - Follow urine and blood cultures -> Negative so far. (3) Acute hypotension: Plan: BP was as low as 70/40 on presentation to the ED; however, 2L IV fluid resuscitation, his BP has normalized. Given he was essentially sleeping for 2 days, I do think his hypotension was almost entirely volume depletion mediated, as he no longer has signs of sepsis. - Also has history of orthostasis and syncope, so is on fludrocortisone per Dr. Bal. - Continue fludrocortisone. Given presently normal BP, will not increase or adjust for stress-dose steroids. - BP again 70/40 on 04/17. Normalized with 500 mL bolus of IV fluids. In speaking with him, I do think his doesn't drink as much as he should. He reports minimal thirst sensation, and his reports that he doesn't drink a lot at home. I think possibly given his Parkinsonism that he is very volume-sensitive and when he gets even mildly dehydrated, he drops his blood pressure. (4) Diarrhea: Plan: Several nocturnal episodes on Friday/. None since that night. - Held Linzess, senna, and Miralax - Restarted Miralax and senna on 04/16. Have good stools daily now. Continue to hold Linzess. (5) Parkinson's disease: Plan: Atypical variant. Follows with Dr. Alvarado. Mornings are the worst per the patient and with him having trouble with mobility and energy. - Continue Sinemet as prescribed. - Continue donepezil (6) PAF (paroxysmal atrial fibrillation): Plan: Was in afib at [facility], but rate-controlled. Here his EKG appears to be sinus. - Not on anticoagulation at baseline - Continue beta-kennedi (7) Hypothyroidism: Plan: TSH was 2.4 in 11/2020. No signs/symptoms of hypo-/hyperthyroidism. - Continue home Synthroid 50 mcg (8) Uncontrolled REM sleep behavior disorder: Plan: Per , has 10+year history of REM sleep disorder. Without Klonopin, he will jump out of bed while sleeping. - Continue clonazepam - Continue melatonin (9) Spinal stenosis of lumbar region: Plan: Per , lidocaine patch helped significantly. (10) Urge incontinence of urine: Plan: CT a/p on admission showed "Prostatomegaly with findings suggestive of chronic bladder outlet obstruction." However, reports constant dribbling of urine (overflow incontience?). However, at [facility], she reports negative bladder scans. - Patient's declines a Kuo catheter, but willing to use condom catheters (11) Neurogenic bladder: Plan: Due to Parkinson's disease. - As above (12) Depression: Plan: - Continue fluoxetine (13) Prostatic hypertrophy: Plan: Noted on CT a/p; however, per , bladder scans were negative at [facility]. - Bladder scan daily and as needed (14) DVT prophylaxis: Plan: Lovenox 40 mg SQ daily Admission and Anticipated Discharge Date Admission Date: April 13, 2021 Subjective Feeling better today. Had two BMs in the last two days. Reports no fevers/chills, chest pain, shortness of breath, abdominal pain, nausea, or vomiting. Physical Exam Constitutional: WD/WN, vitals as above not lethargic Eyes: EOM intact bilaterally; no conjunctival abnormality ENMT: external ear and nose normal, oropharynx normal Neck: trachea midline, no thyromegaly normal visual inspection Respiratory: normal respiratory effort, lungs clear to auscultation no respiratory distress Cardiovascular: RRR, no murmur, no edema Gastrointestinal (Abdomen): Inspection/Auscultation: abdomen normal to inspection; abdomen not distended Musculoskeletal: no cyanosis or clubbing, extremities motor strength 5/5 Skin: no rashes, warm and dry Neurologic: moves all extremities and awake Psychiatric: Orientation: alert, oriented to person and cooperative Results & Data Results & Data ([facility]) Vital Signs (Past 12 Hours) Vital Signs Temp Pulse Pulse Resp BP BP Pulse Ox 04/18/21 15:01 58 L 04/18/21 12:06 36.4 C L 56 L 19 125/66 96 04/18/21 10:03 62 04/18/21 09:12 36.3 C L 54 L 16 167/89 H 93 04/18/21 04:50 36.4 C L 57 L 16 147/73 H 91 PG Care Time/CCT Total # of Minutes Spent Total Time Spent with Patient: Total time spent is greater than 50% in coordination of care (as documented) at patient's floor/unit and/or counseling patient: Coding Level of Care Code 66461 Subseq Hosp Care Lvl 3 Diagnoses Pneumonia J18.9 Laterality: unspecified laterality Lung location: unspecified part of lung Pneumonia type: due to unspecified organism Urinary tract infection N39.0 Hematuria presence: without hematuria Urinary tract infection type: site unspecified Acute hypotension I95.9 Diarrhea R19.7 Parkinson's disease G20 PAF (paroxysmal atrial fibrillation) I48.0 Hypothyroidism E03.9 Uncontrolled REM sleep behavior disorder G47.52 Spinal stenosis of lumbar region M48.061 Urge incontinence of urine N39.41 Neurogenic bladder N31.9 Depression F32.9 Prostatic hypertrophy N40.0 DVT prophylaxis Z29.9 (1) Pneumonia Laterality: unspecified laterality Lung location: unspecified part of lung Pneumonia type: due to unspecified organism Qualified Code(s): J18.9 - Pneumonia, unspecified organism (2) Urinary tract infection Hematuria presence: without hematuria Urinary tract infection type: site unspecified Qualified Code(s): N39.0 - Urinary tract infection, site not specified
[2021-04-18] MEDS: DONEPEZIL HCL 10 MG TAB PO SCH (21:04)
[2021-04-18] MEDS: ESCITALOPRAM OXALATE 10 MG TAB PO SCH (21:04)
[2021-04-18] MEDS: LIDOCAINE 5% 1 PATCH TD SCH (21:05)
[2021-04-18] MEDS: CARBIDOPA/LEVODOPA 50/200MG EXT REL TAB PO SCH (21:05)
[2021-04-18] MEDS: clonazePAM 1 MG TAB PO SCH (21:08)
[2021-04-19] MEDS: MEROPENEM 500 MG in SYRINGE 0 ML IV SCH ×3 (01:28→13:45)
[2021-04-19] MEDS: LEVOTHYROXINE SODIUM 50 MCG TABLET PO SCH (05:30)
[2021-04-19 07:36] LABS: Hematocrit (blood only) 33.4 % (42-52); Hemoglobin 10.7 g/dL (14.0-18.0); Mean Corpuscular Hemoglobin 29.5 pg (25-34); Mean Platelet Volume 9.5 fL (7.4-10.4); Platelet Count 274 K/uL (130-400); RDW Coefficient of Variation 13.8 % (11.5-14.5); RDW Standard Deviation 46.5 fL (36.4-46.3); Red Blood Count 3.63 M/uL (4.7-6.1); White Blood Count 5.13 K/uL (4.8-10.8)
[2021-04-19] MEDS: ENOXAPARIN INJ 40 MG/0.4 ML SYR SQ SCH (07:51)
[2021-04-19] MEDS: SENNA 8.6 MG TAB PO SCH (07:51)
[2021-04-19] MEDS: CARBIDOPA/LEVODOPA 25/100MG TAB PO SCH ×2 (07:51→13:45)
[2021-04-19] MEDS: POLYETHYLENE (MIRALAX) 17 GM PACK PO SCH (07:51)
[2021-04-19] MEDS: FLUDROCORTISONE ACETATE 0.1 MG TAB PO SCH (07:51)
[2021-04-19] MEDS: CETIRIZINE HCL 10 MG TABLET PO SCH (07:52)
[2021-04-19] MEDS: ATORVASTATIN 20 MG TAB PO SCH (07:52)
[2021-04-19] MEDS: METOPROLOL SUCC 50MG EXT REL TAB PO SCH (07:52)
[2021-04-19 08:05] LABS: BUN Creatinine Ratio 18.8 (10-20); Calcium 8.2 mg/dl (8.5-10.1); Creatinine Clr Calc Pharmacy 89.1 ml/min; Est GFR (African American) 101.8 ml/min; Est GFR (Non-African American) 87.9 ml/min; Potassium 3.7 mmol/L (3.5-5.1)
--- NOTE | 2021-04-19 16:28 | Discharge Summary ---
Date of Service April 19, 2021 Admission HPI Per Admitting Provider 80yo M w/ hx of atypical Parkinson's disease, orthostatic symptoms, syncope, and paroxysmal afib who presents with fever and continued fatigue. The patient was in the [facility] in [place] when he had a syncopal episode. He went to the ER and was found to be mildly bradycardic and in afib. UA at that time was clean (per his ). He was kept overnight for observation, and his reports that he had a fever the next day to 103. His WBC went from 16k on admission to 22k as well. His urine was retested at the time and was found to have signs of infection. He was initially on Zosyn, tapered to ceftriaxone (following sensitivities) on which he continued to improve. His WBC normalized as well per the physcians there. He was discharged on Friday and went home and slept all night and most of the next day. His felt this was probably normal as he was quite tired from the hospital. On Friday, he had several episodes of diarrhea which is unusual for him. No blood or melenic stool per his . On , he continued to be very tired and weak. On discharge from the hospital in [place], he was able to walk with a cane. By this morning, he was not able to get up. He also had a temperature of 101 per his , tested with two thermometers. The patient is sleeping, but easily arousable. He reports few symptoms. He does report he is tired and feels weak. He reports he had a headache this morning when he had a fever. Otherwise denies shortness of breath, chest pain, abdominal pain, n/v, denies dysuria, polyuria, or other symptoms. Principal Diagnosis Pneumonia Possible UTI vs. prostatitis Discharge Exam Constitutional WD/WN, vitals as above not lethargic Eyes EOM intact bilaterally; no conjunctival abnormality ENMT external ear and nose normal, oropharynx normal Neck trachea midline, no thyromegaly normal visual inspection Respiratory normal respiratory effort, lungs clear to auscultation no respiratory distress Cardiovascular RRR, no murmur, no edema Gastrointestinal (Abdomen) Inspection/Auscultation: abdomen normal to inspection; abdomen not distended Musculoskeletal no cyanosis or clubbing, extremities motor strength 5/5 Skin no rashes, warm and dry Neurologic moves all extremities and awake Psychiatric Orientation: alert, oriented to person and cooperative Discharge Data Allergies Allergy/AdvReac Type Severity Reaction Status Date / Time diphenhydramine AdvReac Unknown Verified 04/13/21 18:33 [From Benadryl] Consultations 04/13/21 17:21 ED Decision to Admit Stat 04/15/21 16:48 Consult Urology Routine Ordered Studies 04/13/21 14:59 CT abd pelvis IV con only Stat 04/13/21 15:00 CT angio chest PE protocol Stat Hospital Course (1) Pneumonia: CTA chest on 04/13 read with "Patchy bilateral centrilobular groundglass/consolidative opacities" concerning for infection. notes increased coughing with meals/eating/drinking. MRSA swab negative on admission. - Meropenem will cover all typical lung bacteria as well as aspiration bacteria (Gram(-) and anaerobes). - Added azithromycin for atypical bacteria (End date: 04/18/2021) => Can switch to Augmentin on discharge - Still breathing well. End date of pneumonia abx was 04/20/2021, but likely continue x 1 additional week for prostatitis concern by urology. - [facility] consulted for possible aspiration. Seen on 04/14 with relatively low suspision for aspiration. Recs include: * Alternate solids and liquids * Fully alert and upright for meals * Single bites / small sips / slow rate (2) Urinary tract infection: First diagnosed at a hospital in [place]. UA on admission to [facility] indicates possible infection, though unclear given color interfering with interpretation. - Follow urine and blood cultures -> Negative so far. - Please follow with urology next week to be sure they want to continue abx this duration. (3) Acute hypotension: BP was as low as 70/40 on presentation to the ED; however, 2L IV fluid resuscitation, his BP has normalized. Given he was essentially sleeping for 2 days, I do think his hypotension was almost entirely volume depletion mediated, as he no longer has signs of sepsis. - Also has history of orthostasis and syncope, so is on fludrocortisone per Dr. Bal. - Continue fludrocortisone. Given presently normal BP, will not increase or adjust for stress-dose steroids. - BP again 70/40 on 04/17. Normalized with 500 mL bolus of IV fluids. In speaking with him, I do think his doesn't drink as much as he should. He reports minimal thirst sensation, and his reports that he doesn't drink a lot at home. I think possibly given his Parkinsonism that he is very volume-sensitive and when he gets even mildly dehydrated, he drops his blood pressure. (4) Diarrhea: Several nocturnal episodes on Friday/. None since that night. - Held Linzess, senna, and Miralax - Restarted Miralax and senna on 04/16. Have good stools daily now. Continue to hold Linzess. (5) Parkinson's disease: Atypical variant. Follows with Dr. Alvarado. Mornings are the worst per the patient and with him having trouble with mobility and energy. - Continue Sinemet as prescribed. - Continue donepezil (6) PAF (paroxysmal atrial fibrillation): Was in afib at [facility], but rate-controlled. Here his EKG appears to be sinus. - Not on anticoagulation at baseline - Continue beta-kennedi (7) Hypothyroidism: TSH was 2.4 in 11/2020. No signs/symptoms of hypo-/hyperthyroidism. - Continue home Synthroid 50 mcg (8) Uncontrolled REM sleep behavior disorder: Per , has 10+year history of REM sleep disorder. Without Klonopin, he will jump out of bed while sleeping. - Continue clonazepam - Continue melatonin (9) Spinal stenosis of lumbar region: Per , lidocaine patch helped significantly. (10) Urge incontinence of urine: CT a/p on admission showed "Prostatomegaly with findings suggestive of chronic bladder outlet obstruction." However, reports constant dribbling of urine (overflow incontience?). However, at [facility], she reports negative bladder scans. - Patient's declines a Kuo catheter, but willing to use condom catheters (11) Neurogenic bladder: Due to Parkinson's disease. - As above (12) Depression: - Continue fluoxetine (13) Prostatic hypertrophy: Noted on CT a/p; however, per , bladder scans were negative at [facility]. - Bladder scan daily and as needed (14) DVT prophylaxis: Lovenox 40 mg SQ daily Total Time Total Time Spent Total Time Spent (In Minutes): 45 Discharge Plan Discharge Items Patient Disposition: Transfer Inpatient Rehab Fac Reason For Visit: UTI VS. ASPIRATION PNA VS. OTHER INFECT Discharge Diagnosis: Aspiration pneumonia UTI Condition on Discharge: Good Activity: Resume your previous activity Non-emergency contact: Primary Care Provider and Neurologist Call non-emergency contact if: your symptoms worsen Follow-up/Referrals: Wes Alvarado MD [Physician] - (Please see Dr. Alvarado in clinic to be sure Parkinsonism is under control.) Josh Cortez DO [Physician] - (Please see Dr. Cortez or any urology provider for a prostatitis check and bladder residuals.) Jon Bal Jr, DO [Primary Care Provider] - Diet: Heart Healthy Addtl Attending Provider Instructions: Mr. Barba was admitted to the hospital with pneumonia. Additionally, there was concern for a repeat UTI vs. prostatitis as his UA looked infected, but his urine culture was negative. He did well with meropenem and azithromycin. He finished azithromycin course and will need 2 more days of Augmentin to finish his *pneumonia* treatment (7-days of therapy total). However, for his possible prostatitis, continue for an additional week. (End date: 04/28/2021). Please have him see urology next week to be sure he is finishing his abx appropriately and for a bladder check. He was also seen by [facility] who did not have overt concerns for aspiration, but did feel that he should follow aspiration precautions. * Alternate solids and liquids * Fully alert and upright for meals * Single bites / small sips / slow rate We did hold his Linzess as he'd been having some diarrhea at home and did well with just Miralax and senna. IMPORTANT NOTE: He has significant hypotension when he gets hypovolemic. His thirst mechanism is impaired from his Parkinson's disease, so he does not drink as much as he should. Encourage good PO intake. BP was 72/43 on 04/17. At these times, he is mild/moderately symptomatic with some tiredness and lethargy. His BP normalized with 500 mL bolus of IV fluids. In speaking with him, I do think his doesn't drink as much as he should. He reports minimal thirst sensation, and his reports that he doesn't drink a lot at home. I think possibly given his Parkinsonism that he is very volume- sensitive and when he gets even mildly dehydrated, he drops his blood pressure. If this were to occur again, lie him in bed, encourage him to drink fluids, and attempt to give a light bolus of IV fluids. If he has signs of sepsis or other concerns, obviously, he should be sent back to the hospital. Pending Studies at Discharge: No Stand-Alone Forms: My [facility] Skilled Items Patient informed of condition?: Yes DNR: No Discharge Level of Care: Acute rehab Communicable Disease: No Discharge Prognosis: Stable Lines: None Urinary Catheter: Yes Medications and DC Order Prescriptions: New lidocaine 5 % Adhesive Patch,Medicated 1 patch transdermal HS Qty: 0 RF: 0 amoxicillin-pot clavulanate [Augmentin] 875-125 mg tablet 1 tab PO BID Qty: 1 RF: 0 Continued cholecalciferol (vitamin D3) [Vitamin D3] 2,000 unit capsule 2,000 unit PO HS RF: 0 clonazepam 1 mg tablet 2 mg PO HS Qty: 45 RF: 0 donepezil [Aricept] 10 mg tablet 10 mg PO HS RF: 0 atorvastatin [Lipitor] 20 mg tablet 20 mg PO QAM RF: 0 multivitamin Tablet 1 tab PO PM RF: 0 potassium chloride 10 mEq capsule, extended release 10 meq PO BID RF: 0 levothyroxine [Synthroid] 50 mcg tablet 50 mcg PO QAM RF: 0 fludrocortisone 0.1 mg tablet 0.2 mg PO QAM RF: 0 escitalopram oxalate [Lexapro] 10 mg tablet 10 mg PO HS RF: 0 melatonin 10 mg Tablet 10 mg PO HS RF: 0 sennosides [senna] 8.6 mg tablet 17.2 mg PO BID RF: 0 carbidopa-levodopa [Sinemet] 25-100 mg tablet 2 tab PO BID RF: 0 carbidopa-levodopa 25-100 mg tablet 2.5 tab PO 0900 RF: 0 cetirizine [Zyrtec] 10 mg Tablet 10 mg PO QAM RF: 0 metoprolol succinate 50 mg tablet extended release 24 hr 50 mg PO QAM RF: 0 carbidopa-levodopa 50-200 mg tablet extended release 1 tab PO DAILY@2100 RF: 0 ketoconazole 2 % cream 1 applic TOP BID PRN (Reason: fungal maintenance) RF: 0 Changed polyethylene glycol 3350 [Miralax] 17 gram/dose powder 8.5 gm PO DAILY Qty: 0 RF: 0 Discontinued Linzess 290 mcg capsule 290 mcg PO QPM RF: 0 cefdinir 300 mg capsule 300 mg PO BID RF: 0 Discharge Orders: Discharge Order (Routine); Ordered 04/19/21 Ordered By: Mahendra Rome Admission Data Admit Date/Time: 04/13/21 18:59 Attending Provider: Mahendra Rome Admit Provider: Mahendra Rome Primary Care Provider: Jon Bal Jr Other Providers: Celsa Mazariegos at [place] ; Josh Cortez ; [facility] Other Interventions: Discharge Summary Assessment (RN) Last Done: 04/19/21 13:59 Coding Level of Care Code D/C DAY MANAGEMENT >30 MINS Diagnoses Pneumonia J18.9 Laterality: unspecified laterality Lung location: unspecified part of lung Pneumonia type: due to unspecified organism Urinary tract infection N39.0 Hematuria presence: without hematuria Urinary tract infection type: site unspecified Acute hypotension I95.9 Diarrhea R19.7 Parkinson's disease G20 PAF (paroxysmal atrial fibrillation) I48.0 Hypothyroidism E03.9 Uncontrolled REM sleep behavior disorder G47.52 Spinal stenosis of lumbar region M48.061 Urge incontinence of urine N39.41 Neurogenic bladder N31.9 Depression F32.9 Prostatic hypertrophy N40.0 DVT prophylaxis Z29.9
== END 2021-04-19 15:10 | DRG 194 ==
LOC: ED 12:34 → SUATTDRO 18:59 → 2W 18:59

== ENCOUNTER 2021-09-16 18:19 | Inpatient (IN) ==
[2021-09-16] MEDS ORDERED: SODIUM CHLORIDE 0.9% 500 ML IV ONE (19:56)
[2021-09-16 20:26] LABS: Basophils # (auto) 0.02 K/uL (0-0.2); Basophils % (auto) 0.2 %; Eosinophils # (auto) 0.18 K/uL (0-0.5); Eosinophils % (auto) 2.2 %; Hematocrit (blood only) 40.5 % (42-52); Hemoglobin 13.2 g/dL (14.0-18.0); Immature Granulocytes # (auto) 0.01 K/uL (0.00-0.02); Immature Granulocytes % (auto) 0.1 %; Lymphocytes # (auto) 1.67 K/uL (1.2-3.4); Lymphocytes % (auto) 20.5 %; Mean Corpuscular Hemoglobin 29.9 pg (25-34); Mean Corpuscular Hgb Conc 32.6 g/dL (32-36); Mean Corpuscular Volume 91.8 fL (80-100); Mean Platelet Volume 10.7 fL (7.4-10.4); Monocytes # (auto) 0.53 K/uL (0.11-0.59); Monocytes % (auto) 6.5 %; Neutrophils # (auto) 5.75 K/uL (1.4-6.5); Neutrophils % (auto) 70.5 %; Platelet Count 213 K/uL (130-400); RDW Coefficient of Variation 14.3 % (11.5-14.5); RDW Standard Deviation 48.5 fL (36.4-46.3); Red Blood Count 4.41 M/uL (4.7-6.1); White Blood Count 8.16 K/uL (4.8-10.8)
[2021-09-16 20:42] LABS: Albumin Level 3.4 gm/dl (3.4-5.0); BUN Creatinine Ratio 27.9 (10-20); Blood Urea Nitrogen 25 mg/dl (7-18); Calcium 9.1 mg/dl (8.5-10.1); Carbon Dioxide 30 mmol/L (21-32); Chloride 104 mmol/L (98-107); Est GFR (African American) 94.7 ml/min; Est GFR (Non-African American) 81.7 ml/min; Glucose 109 mg/dl (70-99); Magnesium 2.3 mg/dl (1.8-2.4); Potassium 3.8 mmol/L (3.5-5.1); Sodium 140 mmol/L (136-145)
[2021-09-16 20:53] LABS: Alanine Aminotransferase 16 (12-78); Albumin Globulin Ratio 0.9 (0.9-2); Alkaline Phosphatase 90 U/L (45-117); Aspartate Aminotransferase 21 U/L (15-37); Bilirubin,Total 0.9 mg/dl (0.2-1); Globulin 3.8 gm/dl (2.5-4.0); Total Protein 7.2 gm/dl (6.4-8.2); Troponin I < 0.015 ng/ml (0-0.045)
[2021-09-16 21:28] LABS: Appearance Urine Cloudy (Clear); Bacteria Urine Automated Negative (Negative); Bilirubin Urine Negative (Negative); Blood Urine Negative (Negative); Color Urine Dark Yellow; Glucose Urine UA Negative (Negative); Ketones Urine Trace (Negative); Leukocyte Esterase Urine Negative (Negative); Nitrite Urine Negative (Negative); Protein Urine Negative (Negative); RBC Urine Automated 0-4 /hpf (0-4); Specific Gravity Urine 1.027 (1.000-1.030); Urobilinogen Urine Negative (Negative)
--- NOTE | 2021-09-16 21:37 | Emergency Department Note ---
History of Present Illness General Chief complaint: Syncope Stated complaint: HIGH BP,PASSED OUT,UNINTELLIGIBLE SPEECH Time Seen by Provider: 09/16/21 19:46 Source: patient and family ( was at the bedside) Mode of arrival: ambulatory Limitations: no limitations History of Present Illness This patient is a 81-year-old male history of Parkinson's is brought in by his after she is concerned that he had a syncopal episode. She said that starting this morning around 10:00 when he woke up she seemed like his breathing was shallow initially. He has been having visual and auditory hallucinations for weeks to months but is yet to see a neurologist for this he is followed at [facility]. He also has seemed more confused today with some slurred speech at times with trouble finding the words which is also new. No focal numbness or weakness. His blood pressure was running high in the 180s to 200 systolic so she stopped his floor cortisone which she takes for orthostatic hypotension. Around 5:00 he felt lightheaded and passed out on the floor he may have hit his head but she does did not think he actually was unconscious. No other injuries no focal numbness weakness seems to be doing better now but not back at baseline. No chest pain. He is on no blood thinners. No blood or melena stool. No urinary symptoms known. Home Medications Medication Instructions Recorded Confirmed Type atorvastatin 20 mg tablet (Lipitor) 20 mg PO QAM tab 05/11/19 09/16/21 History cholecalciferol (vitamin D3) 50 2,000 unit PO HS cap 05/11/19 09/16/21 History mcg (2,000 unit) capsule (Vitamin D3) clonazepam 1 mg tablet 2 mg PO HS #45 tab 05/11/19 09/16/21 History donepezil 10 mg tablet (Aricept) 10 mg PO HS tab 05/11/19 09/16/21 History escitalopram oxalate 10 mg tablet 10 mg PO HS 06/30/19 09/16/21 History (Lexapro) levothyroxine 50 mcg tablet 50 mcg PO QAM 06/30/19 09/16/21 History (Synthroid) melatonin 10 mg tablet 10 mg PO HS 06/30/19 09/16/21 History multivitamin (Daily Multi-Vitamin) 1 tab PO PM 06/30/19 09/16/21 History potassium chloride 10 mEq 10 meq PO BID 06/30/19 09/16/21 History capsule,extended release metoprolol succinate 50 mg 50 mg PO QAM 01/22/21 09/16/21 History tablet,extended release 24 hr (Toprol XL) polyethylene glycol 3350 17 8.5 gm PO DAILY PRN 05/11/21 09/16/21 History gram/dose oral powder (Miralax) carbidopa 25 mg-levodopa 250 mg 1 tab PO QID 09/16/21 09/16/21 History tablet fludrocortisone 0.1 mg tablet 0.1 mg PO BID 09/16/21 09/16/21 History sennosides 8.6 mg tablet (Senokot) 17.2 mg PO BID 09/16/21 09/16/21 History Allergies Allergy/AdvReac Type Severity Reaction Status Date / Time No Known Allergies Allergy Verified 09/16/21 21:44 Past Med/Surg History Medical History Benign prostatic hyperplasia with urinary obstruction Chronic constipation Closed head injury Depression Hypotension Hypothyroidism Lumbar pain Lumbar post-laminectomy syndrome Prior left L3-4 hemilaminectomy Memory loss Neurogenic bladder PAF (paroxysmal atrial fibrillation) Parkinson's disease Sacral insufficiency fracture Spinal stenosis of lumbar region Urge incontinence of urine Surgical History History of back surgery History of tonsillectomy 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) Family History Unknown Alzheimer disease Sister Diabetes Cancer Other Family history non-contributory Social History Smoking Status: Never smoker Tobacco Type: Cigarettes Second Hand Exposure: No; Hx Alcohol Use: No Hx Substance Use: No Preferred Language: Bulgarian Communication Ability: Effective Product Craftsman Required: No Beliefs That Will Affect Care: None marital status: Current Living Situation: Spouse and Family current occupational status: retired Feels Safe at Home: Yes Assistive Devices: Walker Review of Systems A total of 10 systems reviewed and were otherwise negative Physical Exam Vital Signs Vital Signs - 24 hr 09/16/21 18:24 09/16/21 20:06 09/16/21 20:22 Temperature 36.7 C Temperature Source Oral Pulse Rate 67 Pulse Rate [Left Apical] 68 Respiratory Rate 18 16 Respiratory Effort / Characteristics Non-Labored Spontaneous Respiratory Depth Normal Respiratory Pattern Regular Blood Pressure 93/52 L Blood Pressure [Left Arm] 201/104 H Blood Pressure Mean 65 Blood Pressure Mean [Left Arm] 136 Blood Pressure Position [Left Arm] Lying Pulse Oximetry 95 100 100 Oxygen Delivery Method Room Air Room Air Room Air Sepsis Recent Fever Within 48 Hours No Sepsis New/Unexplained Change in Mental Status N/A Sepsis Action Taken by Nursing No Action Required 09/16/21 20:31 09/16/21 21:10 09/16/21 21:30 Temperature Temperature Source Pulse Rate 76 79 72 Pulse Rate [Left Apical] Respiratory Rate 22 18 16 Respiratory Effort / Characteristics Respiratory Depth Respiratory Pattern Blood Pressure 176/105 H 191/94 H 176/93 H Blood Pressure [Left Arm] Blood Pressure Mean 128 126 120 Blood Pressure Mean [Left Arm] Blood Pressure Position [Left Arm] Pulse Oximetry 97 98 Oxygen Delivery Method Room Air Sepsis Recent Fever Within 48 Hours Sepsis New/Unexplained Change in Mental Status Sepsis Action Taken by Nursing General: Well developed well nourished older male who answers questions appropriately without slurred speech in no acute distress, breathing comfortably on room air. Normal speech HEENT: Normal cephalic atraumatic. Pupils are equal round and reactive to light. Extraocular movements are intact. Oropharynx is pink with moist mucous membranes. No swelling of the mouth lips or tongue. No external signs of trauma Neck: Supple with a midline trachea. No meningeal signs or stiffness, no JVD or bruits. No Stridor. Chest: Clear to auscultation bilaterally. No wheezes or rhonchi. No increased work of breathing. Heart: Regular rate and rhythm without murmurs or gallops. Abdomen: Soft nontender, nondistended without rebound guarding or rigidity. Extremities: No cyanosis clubbing or edema. No calf tenderness or assymetry Spine/Back. Non tender to palpation. No CVA tenderness Skin: Good turgor without rashes. Neurologic exam: Cranial nerves two through 12 are intact. Motor and sensation are intact and symmetrical throughout. Mild tremor with movement which is baseline Course Administered Medications Discontinued Medications Sodium Chloride (Nss) 500 mls @ 999 mls/hr IV .Q31M ONE Stop: 09/16/21 20:26 Last Infusion: 09/16/21 20:57 Dose: 0 mls/hr Documented by: [id number] Admin: 09/16/21 20:21 Dose: 999 mls/hr Documented by: [id number] Ioversol (Optiray 320 125ml) 117 ml IV ONCE ONE Stop: 09/16/21 22:12 Last Admin: 09/16/21 22:11 Dose: 117 ml Documented by: [id number] Medical Decision Making Differential Diagnosis Syncope, arrhythmia, acute coronary syndrome, subdural, CVA/TIA, Parkinson's disease, Covid, electrolyte or metabolic abnormality, hypertensive emergency/urgency Medical Records Attestation: I reviewed the patient's medical records. Home Medications Current Medication List: was personally reviewed by me Laboratory Data Attestation: I reviewed the patient's lab results. Result diagrams: 09/16/21 20:18 09/16/21 20:18 Lab Results 09/16/21 09/16/21 09/16/21 Range/Units 20:18 20:18 21:17 WBC 8.16 (4.8-10.8) K/uL RBC 4.41 L (4.7-6.1) M/uL Hgb 13.2 L (14.0-18.0) g/dL Hct 40.5 L (42-52) % MCV 91.8 (80-100) fL MCH 29.9 (25-34) pg MCHC 32.6 (32-36) g/dL RDW Std Deviation 48.5 H (36.4-46.3) fL RDW Coeff of Imelda 14.3 (11.5-14.5) % Plt Count 213 (130-400) K/uL MPV 10.7 H (7.4-10.4) fL Immature Gran % (Auto) 0.1 % Neut % (Auto) 70.5 % Lymph % (Auto) 20.5 % [place] % (Auto) 6.5 % Eos % (Auto) 2.2 % Baso % (Auto) 0.2 % Neut # (Auto) 5.75 (1.4-6.5) K/uL Lymph # (Auto) 1.67 (1.2-3.4) K/uL [place] # (Auto) 0.53 (0.11-0.59) K/uL Eos # (Auto) 0.18 (0-0.5) K/uL Baso # (Auto) 0.02 (0-0.2) K/uL Immature Gran # (Auto) 0.01 (0.00-0.02) K/uL Sodium 140 (136-145) mmol/L Potassium 3.8 (3.5-5.1) mmol/L Chloride 104 (98-107) mmol/L Carbon Dioxide 30 (21-32) mmol/L Anion Gap 6.0 (3-11) BUN 25 H (7-18) mg/dl Creatinine 0.88 (0.6-1.4) mg/dl Est Cr Clr Drug Dosing Not Reportable Est GFR ( Amer) 94.7 ml/min Est GFR (Non-Af Amer) 81.7 ml/min BUN/Creatinine Ratio 27.9 H (10-20) Glucose 109 H (70-99) mg/dl Calcium 9.1 (8.5-10.1) mg/dl Magnesium 2.3 (1.8-2.4) mg/dl Total Bilirubin 0.9 (0.2-1) mg/dl AST 21 (15-37) U/L ALT 16 (12-78) Alkaline Phosphatase 90 (45-117) U/L Troponin I < 0.015 (0-0.045) ng/ml Total Protein 7.2 (6.4-8.2) gm/dl Albumin 3.4 (3.4-5.0) gm/dl Globulin 3.8 (2.5-4.0) gm/dl Albumin/Globulin Ratio 0.9 (0.9-2) TSH 1.110 (0.300-4.500) uIu/ml Urine Color Dark Yellow Urine Appearance Cloudy A (Clear) Urine pH 6.0 (4.5-7.5) Ur Specific [place] 1.027 (1.000-1.030) Urine Protein Negative (Negative) Urine Glucose (UA) Negative (Negative) Urine Ketones Trace H (Negative) Urine Blood Negative (Negative) Urine Nitrite Negative (Negative) Urine Bilirubin Negative (Negative) Urine Urobilinogen Negative (Negative) Ur Leukocyte Esterase Negative (Negative) Urine WBC (Auto) 1-5 (0-5) /hpf Urine RBC (Auto) 0-4 (0-4) /hpf U Hyaline Cast (Auto) 1-5 (0-5) /lpf U Epithel Cells (Auto) 5-10 H (0-5) /lpf Urine Bacteria (Auto) Negative (Negative) Urine Crystals Not Reportable Calcium Oxalate Crystal Present A (None Prsent) SARS-CoV-2, RNA, NAAT (NEGATIVE) 09/16/21 Range/Units 21:17 WBC (4.8-10.8) K/uL RBC (4.7-6.1) M/uL Hgb (14.0-18.0) g/dL Hct (42-52) % MCV (80-100) fL MCH (25-34) pg MCHC (32-36) g/dL RDW Std Deviation (36.4-46.3) fL RDW Coeff of Imelda (11.5-14.5) % Plt Count (130-400) K/uL MPV (7.4-10.4) fL Immature Gran % (Auto) % Neut % (Auto) % Lymph % (Auto) % [place] % (Auto) % Eos % (Auto) % Baso % (Auto) % Neut # (Auto) (1.4-6.5) K/uL Lymph # (Auto) (1.2-3.4) K/uL [place] # (Auto) (0.11-0.59) K/uL Eos # (Auto) (0-0.5) K/uL Baso # (Auto) (0-0.2) K/uL Immature Gran # (Auto) (0.00-0.02) K/uL Sodium (136-145) mmol/L Potassium (3.5-5.1) mmol/L Chloride (98-107) mmol/L Carbon Dioxide (21-32) mmol/L Anion Gap (3-11) BUN (7-18) mg/dl Creatinine (0.6-1.4) mg/dl Est Cr Clr Drug Dosing Est GFR ( Amer) ml/min Est GFR (Non-Af Amer) ml/min BUN/Creatinine Ratio (10-20) Glucose (70-99) mg/dl Calcium (8.5-10.1) mg/dl Magnesium (1.8-2.4) mg/dl Total Bilirubin (0.2-1) mg/dl AST (15-37) U/L ALT (12-78) Alkaline Phosphatase (45-117) U/L Troponin I (0-0.045) ng/ml Total Protein (6.4-8.2) gm/dl Albumin (3.4-5.0) gm/dl Globulin (2.5-4.0) gm/dl Albumin/Globulin Ratio (0.9-2) TSH (0.300-4.500) uIu/ml Urine Color Urine Appearance (Clear) Urine pH (4.5-7.5) Ur Specific [place] (1.000-1.030) Urine Protein (Negative) Urine Glucose (UA) (Negative) Urine Ketones (Negative) Urine Blood (Negative) Urine Nitrite (Negative) Urine Bilirubin (Negative) Urine Urobilinogen (Negative) Ur Leukocyte Esterase (Negative) Urine WBC (Auto) (0-5) /hpf Urine RBC (Auto) (0-4) /hpf U Hyaline Cast (Auto) (0-5) /lpf U Epithel Cells (Auto) (0-5) /lpf Urine Bacteria (Auto) (Negative) Urine Crystals Calcium Oxalate Crystal (None Prsent) SARS-CoV-2, RNA, NAAT NEGATIVE (NEGATIVE) Imaging Data Attestation: I personally reviewed and interpreted this imaging study as follows: My Impression: Head CT-no acute abnormality seen. ECG Data Attestation: I personally reviewed and interpreted this ECG as follows: Indication: + weakness Rate (beats per minute): 64 Rhythm: + normal sinus ECG Intervals/blocks: + Normal QRS, + Normal QT and + Normal VA ECG [place]: + Normal ECG ST segments: + Normal ST segments ECG Findings: + PACs; no PVCs Comparison ECG Date: from [facility] Narrative This patient is a 81-year-old male who has a history of Parkinson's and his is concerned that he has had several issues today including increasing confusion syncope blood pressure fluctuations and slurred speech. Speech seems to be better at present. I did a CAT scan of his head there is no subdural or acute process seen. EKG shows some ectopy but no ischemia. He has no significant electrolyte or metabolic abnormalities. He has nothing to suggest sepsis. Urinalysis does not suggest UTI. I did also order a CT of the head and the neck as further part of a stroke type work-up. I did discuss case with Dr. Stokes as I do think he needs to be admitted/monitor for syncope and further stroke work- up potentially. He is not a TPA candidate as this happened at 10:00 this morning symptoms have gotten significantly better. CAT scan of the head is unremarkable. EKG does not suggest ischemic changes. I did also order CTAs of the head and neck as well as cervical spine as part of the stroke work-up. I do think he will need to be admitted/observed observed. I have consulted Dr. Stokes to see the patient for these measures. Covid testing was negative. Continuous cardiac monitoring: Orders placed in EMR for continuous monitoring tech. Upon my interpretation patient noted to be in normal sinus rhythm rate of 70 Impression & Plan Syncope, Parkinson's disease, Weakness, Lab test negative for COVID-19 virus Discharge Plan Visit Data Chief Complaint: Syncope Stated Complaint: HIGH BP,PASSED OUT,UNINTELLIGIBLE SPEECH ED Provider: Wes Vazquez Discharge Problem: Syncope, Parkinson's disease, Weakness, Lab test negative for COVID-19 virus
[2021-09-16 21:39] LABS: Calcium Oxalate Crystals Urine Present (None Prsent)
--- NOTE | 2021-09-16 22:03 | History & Physical Report ---
Date of Service September 16, 2021 Assessment & Plan (1) Syncope: Plan: 81yo male with history of Parkinson's Disease presenting with slurred speech, syncopal event at home. Appears slightly dehydrated on exam as well as labs as indicated by slight increase in H/H, BUN and ketones in urine. Patient has history of orthostatic hypotension associated with his Parkinson's Disease and is on Florinef. Syncope possibly secondary to orthostatic hypotension, ?autonomic instability, widely variable blood pressure while in the ER, ?episodes of atrial fibrillation. -Fall precautions -Gentle hydration (2) Dysarthria: Plan: Patient reports difficulty with word finding as well as slurred speech. His describes episode of echolalia (repeating words) as well as inappropriate affect and laugh response. Question of visual and auditory hallucinations. Could be secondary to progression of Parkinson's Disease, ?delirium, ?TIA or CVA - patient with history of atrial fibrillation, presently not on anticoagulation secondary to increased fall risk. CT head as well as CTA head and neck largely unremarkable -Admit to medical with telemetry -Neuro checks, dysarthria screening and NIHSS per protocol -Check MRI brain -Delirium prevention strategies (3) Parkinson's disease: Plan: Chronic. ?progressive symptoms contributing to symptoms tonight? Patient follows with Neurology/Movement Disorder clinic at [facility]. He is scheduled to see them in November but is trying to be scheduled earlier due to concern for progressive symptoms. Dosage of Carbidopa/levodopa was increased appx 1.5 months ago -Continue Carbidopa/Levodopa 2.5mg po QID -Continue Aricept 10mg po qHS -Continue Clonazepam 2mg po qHS -Continue Florinef -Delirium prevention strategies -Consider Neurology consultation (4) Hypothyroidism: Plan: Chronic. TSH within normal limits at 1.11 -Continue Synthroid 50mcg po daily (5) PAF (paroxysmal atrial fibrillation): Plan: Chronic. Rate controlled sinus rhythm with PACs. -Continue metoprolol 50mg po daily -No anticoagulation due to increased fall risk (6) Neurogenic bladder: Plan: Patient wears a condom catheter qHS -Continue external catheter qHS -Straight cath as needed for urinary retention (7) Depression: Plan: Chronic -Continue Escitalopram 10mg po daily (8) Chronic constipation: Plan: Chronic -Continue Miralax, Senokot Plan: F/E/N - LR at 100mL/hr x 1 liter, monitor electrolytes and replete as needed, continue KCl 10meq BID at home dose, regular diet as tolerated - no red meat per patient request Ppx - SCDs to bilateral LE Code - Full per discussion with patient and Dispo - Admit to medical with telemetry History of Present Illness Chief Complaint: speech disturbance, syncope Primary Care Provider: Jon Bal Jr, Andrew Barba is a 81yo male with history of Parkinson's disease on Carbidopa- Levodopa presenting with speech disturbance, gait instability and worsening confusion. Patient reports concern for cognitive decline starting last week. He had some worsening gait and fell several times last week secondary to loss of balance. His contacted his Neurologist/Movement Disorder specialist from [facility] with these concerns and patient is scheduled to see them in October. Patient sleeps in a hospital bed on the first floor of the home. Last night patient's noted that he was breathing strangely - rapid, shallow breathing. He was also in a cold sweat. Patient had some unintelligible speech as well as echolalia - repeating "wisteria, wisterium, wisteria, wisterium" over and over again. Patient also laughing inappropriately while speaking about a friend that . thinks he may have been having some visual hallucinations as well as auditory hallucinations. Patient's monitored his symptoms throughout the day. She checked his vital signs and he was found to be hypertensive at 190-211 / 95-109. She did not administer his Florinef this evening but gave him his Metoprolol. was assisting the patient in the bathroom tonight and he had a syncopal event and hit his head. No seizure activity reported. Patient is mainly complaining of slurred speech and word-finding difficulty at this time as well as a slight headache. He denies fever, chills, cough, SOB, abdominal pain, nausea, vomiting, diarrhea or constipation. Denies numbness, weakness. No additional complaints at this time. ER Course: NSS x 500mL Allergies Allergy/AdvReac Type Severity Reaction Status Date / Time No Known Allergies Allergy Verified 09/16/21 21:44 Home Medications Medication Instructions Recorded Confirmed Type atorvastatin 20 mg tablet (Lipitor) 20 mg PO QAM tab 05/11/19 09/16/21 History cholecalciferol (vitamin D3) 50 2,000 unit PO HS cap 05/11/19 09/16/21 History mcg (2,000 unit) capsule (Vitamin D3) clonazepam 1 mg tablet 2 mg PO HS #45 tab 05/11/19 09/16/21 History donepezil 10 mg tablet (Aricept) 10 mg PO HS tab 05/11/19 09/16/21 History escitalopram oxalate 10 mg tablet 10 mg PO HS 06/30/19 09/16/21 History (Lexapro) levothyroxine 50 mcg tablet 50 mcg PO QAM 06/30/19 09/16/21 History (Synthroid) melatonin 10 mg tablet 10 mg PO HS 06/30/19 09/16/21 History multivitamin (Daily Multi-Vitamin) 1 tab PO PM 06/30/19 09/16/21 History potassium chloride 10 mEq 10 meq PO BID 06/30/19 09/16/21 History capsule,extended release metoprolol succinate 50 mg 50 mg PO QAM 01/22/21 09/16/21 History tablet,extended release 24 hr (Toprol XL) polyethylene glycol 3350 17 8.5 gm PO DAILY PRN 05/11/21 09/16/21 History gram/dose oral powder (Miralax) carbidopa 25 mg-levodopa 250 mg 1 tab PO QID 09/16/21 09/16/21 History tablet fludrocortisone 0.1 mg tablet 0.1 mg PO BID 09/16/21 09/16/21 History sennosides 8.6 mg tablet (Senokot) 17.2 mg PO BID 09/16/21 09/16/21 History Past Med/Surg History Medical History Benign prostatic hyperplasia with urinary obstruction Chronic constipation Closed head injury Depression Hypotension Hypothyroidism Lumbar pain Lumbar post-laminectomy syndrome Prior left L3-4 hemilaminectomy Memory loss Neurogenic bladder PAF (paroxysmal atrial fibrillation) Parkinson's disease Sacral insufficiency fracture Spinal stenosis of lumbar region Urge incontinence of urine Surgical History History of back surgery History of tonsillectomy 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) Family History Unknown Alzheimer disease Sister Diabetes Cancer Other Family history non-contributory Social History Smoking Status: Never smoker Tobacco Type: Cigarettes Second Hand Exposure: No; Hx Alcohol Use: No Hx Substance Use: No Preferred Language: Norwegian Communication Ability: Effective Field Representative/Health Education Required: No Beliefs That Will Affect Care: None marital status: Current Living Situation: Spouse and Family current occupational status: retired Feels Safe at Home: Yes Assistive Devices: Walker Review of Systems Review of Systems: All systems reviewed & are unremarkable except as noted in HPI & below Physical Exam Physical Exam: General: patient resting comfortably, NAD, non-toxic in appearance, AA&O x 4 Skin: warm, dry, intact, no rashes or lesions HEENT: NC/AT, PERRL, EOMI, anicteric sclera, conjunctiva without injection, external ear normal to inspection and nontender, nares patent, dry mucus membranes, dentition intact, no oropharyngeal lesions, neck supple, trachea midline, no LAD, no thyromegaly, no JVD Heart: +S1/S2, regular with frequent ectopy, no m/r/g Lungs: equal air entry bilaterally, no rales/rhonchi/wheezes Abd: +BS, soft, NT/ND, no masses/organomegaly/ascites Ext: warm, 2+ pulses in UE/LE bilaterally, no clubbing/cyanosis,1+ edema of bilateral LE, L>R, skin thickening and changes consistent with chronic venous insufficiency Neuro: AA&O x 3, speech delayed but clear and appropriate, no facial droop, MS 5/5 in UE/LE bilaterally, significant cogwheel rigidity of wrist and UE Results & Data Results & Data ([facility]) Vital Signs (Past 12 Hours) Vital Signs Temp Pulse Pulse Resp BP BP Pulse Ox 09/16/21 21:10 79 18 191/94 H 98 09/16/21 20:31 76 22 176/105 H 97 09/16/21 20:22 100 09/16/21 20:06 68 16 201/104 H 100 09/16/21 18:24 36.7 C 67 18 93/52 L 95 Laboratory Results Laboratory Results WBC 8.16 K/uL (4.8-10.8) 09/16/21 20:18 RBC 4.41 M/uL (4.7-6.1) L 09/16/21 20:18 Hgb 13.2 g/dL (14.0-18.0) L 09/16/21 20:18 Hct 40.5 % (42-52) L 09/16/21 20:18 MCV 91.8 fL (80-100) 09/16/21 20:18 MCH 29.9 pg (25-34) 09/16/21 20:18 MCHC 32.6 g/dL (32-36) 09/16/21 20:18 RDW Std Deviation 48.5 fL (36.4-46.3) H 09/16/21 20:18 RDW Coeff of Imelda 14.3 % (11.5-14.5) 09/16/21 20:18 Plt Count 213 K/uL (130-400) 09/16/21 20:18 MPV 10.7 fL (7.4-10.4) H 09/16/21 20:18 Immature Gran % (Auto) 0.1 % 09/16/21 20:18 Neut % (Auto) 70.5 % 09/16/21 20:18 Lymph % (Auto) 20.5 % 09/16/21 20:18 [place] % (Auto) 6.5 % 09/16/21 20:18 Eos % (Auto) 2.2 % 09/16/21 20:18 Baso % (Auto) 0.2 % 09/16/21 20:18 Neut # (Auto) 5.75 K/uL (1.4-6.5) 09/16/21 20:18 Lymph # (Auto) 1.67 K/uL (1.2-3.4) 09/16/21 20:18 [place] # (Auto) 0.53 K/uL (0.11-0.59) 09/16/21 20:18 Eos # (Auto) 0.18 K/uL (0-0.5) 09/16/21 20:18 Baso # (Auto) 0.02 K/uL (0-0.2) 09/16/21 20:18 Immature Gran # (Auto) 0.01 K/uL (0.00-0.02) 09/16/21 20:18 Sodium 140 mmol/L (136-145) 09/16/21 20:18 Potassium 3.8 mmol/L (3.5-5.1) 09/16/21 20:18 Chloride 104 mmol/L (98-107) 09/16/21 20:18 Carbon Dioxide 30 mmol/L (21-32) 09/16/21 20:18 Anion Gap 6.0 (3-11) 09/16/21 20:18 BUN 25 mg/dl (7-18) H 09/16/21 20:18 Creatinine 0.88 mg/dl (0.6-1.4) 09/16/21 20:18 Est Cr Clr Drug Dosing Not Reportable 09/16/21 20:18 Est GFR ( Amer) 94.7 ml/min 09/16/21 20:18 Est GFR (Non-Af Amer) 81.7 ml/min 09/16/21 20:18 BUN/Creatinine Ratio 27.9 (10-20) H 09/16/21 20:18 Glucose 109 mg/dl (70-99) H 09/16/21 20:18 Calcium 9.1 mg/dl (8.5-10.1) 09/16/21 20:18 Magnesium 2.3 mg/dl (1.8-2.4) 09/16/21 20:18 Total Bilirubin 0.9 mg/dl (0.2-1) 09/16/21 20:18 AST 21 U/L (15-37) 09/16/21 20:18 ALT 16 (12-78) 09/16/21 20:18 Alkaline Phosphatase 90 U/L (45-117) 09/16/21 20:18 Troponin I < 0.015 ng/ml (0-0.045) 09/16/21 20:18 Total Protein 7.2 gm/dl (6.4-8.2) 09/16/21 20:18 Albumin 3.4 gm/dl (3.4-5.0) 09/16/21 20:18 Globulin 3.8 gm/dl (2.5-4.0) 09/16/21 20:18 Albumin/Globulin Ratio 0.9 (0.9-2) 09/16/21 20:18 TSH 1.110 uIu/ml (0.300-4.500) 09/16/21 20:18 Urine Color Dark Yellow 09/16/21 21:17 Urine Appearance Cloudy (Clear) A 09/16/21 21:17 Urine pH 6.0 (4.5-7.5) 09/16/21 21:17 Ur Specific [place] 1.027 (1.000-1.030) 09/16/21 21:17 Urine Protein Negative (Negative) 09/16/21 21:17 Urine Glucose (UA) Negative (Negative) 09/16/21 21:17 Urine Ketones Trace (Negative) H 09/16/21 21:17 Urine Blood Negative (Negative) 09/16/21 21:17 Urine Nitrite Negative (Negative) 09/16/21 21:17 Urine Bilirubin Negative (Negative) 09/16/21 21:17 Urine Urobilinogen Negative (Negative) 09/16/21 21:17 Ur Leukocyte Esterase Negative (Negative) 09/16/21 21:17 Urine WBC (Auto) 1-5 /hpf (0-5) 09/16/21 21:17 Urine RBC (Auto) 0-4 /hpf (0-4) 09/16/21 21:17 U Hyaline Cast (Auto) 1-5 /lpf (0-5) 09/16/21 21:17 U Epithel Cells (Auto) 5-10 /lpf (0-5) H 09/16/21 21:17 Urine Bacteria (Auto) Negative (Negative) 09/16/21 21:17 Urine Crystals Not Reportable 09/16/21 21:17 Calcium Oxalate Crystal Present (None Prsent) A 09/16/21 21:17 SARS-CoV-2, RNA, NAAT NEGATIVE (NEGATIVE) 09/16/21 21:17 Diagnostic Findings CTA Neck - approximately 30% stenosis of th eproximal left ICA due to calcific plaque. No significant left ICA stenosis. Both common carotid arteries are adequately patent. Both vertebral arteries are adequately patent. CTA Head - Patent intracranial circulation. No large vessel occlusion. No aneurysm. CT Lumbar spine - osteopenia and degenerative changes. No acute osseous findings. Treace right pleural effusion. CT Head - Involutional and chronic small vessel ischemic changes. No ICH, mass effect or edema. No skull fracture. Mucosal thickening left frontal sinus and left anterior ethmoid air cells. ECG Additional Comments: EKG with SR with PACs, 64bpm, no acute ischemic changes. Code Status & VTE Plan VTE Prophylaxis Plan VTE Prophylaxis will be ordered: Yes PG Care Time/CCT Total # of Minutes Spent Total Time Spent with Patient: Total time spent is greater than 50% in coordination of care (as documented) at patient's floor/unit and/or counseling patient: Coding Level of Care Code 72053 Initial Inpt Care Lvl 3 Diagnoses Parkinson's disease G20 Hypothyroidism E03.9 PAF (paroxysmal atrial fibrillation) I48.0 Neurogenic bladder N31.9 Depression F32.9 Chronic constipation K59.09 Dysarthria R47.1 Syncope R55
[2021-09-16] MEDS ORDERED: OPTIRAY 320 125ml IV ONE (22:11)
[2021-09-17] MEDS ORDERED: ONDANSETRON INJ 2 MG/ML 2 ML VIAL IV PRN (00:29)
[2021-09-17] MEDS ORDERED: ACETAMINOPHEN 325 MG TAB PO PRN (00:29)
[2021-09-17] MEDS ORDERED: LACTATED RINGER'S 1,000 ML IV SCH (00:29)
[2021-09-17] MEDS ORDERED: MELATONIN 3 MG TAB PO PRN (01:02)
[2021-09-17] MEDS ORDERED: LORazepam 1 MG/2 ML VIAL IV PRN (02:54)
[2021-09-17] MEDS ORDERED: GADOBUTROL 65ML VIAL IV ONE (03:52)
[2021-09-17 05:30] LABS: Basophils # (auto) 0.02 K/uL (0-0.2); Basophils % (auto) 0.3 %; Eosinophils % (auto) 2.9 %; Hematocrit (blood only) 37.5 % (42-52); Hemoglobin 12.2 g/dL (14.0-18.0); Lymphocytes # (auto) 1.52 K/uL (1.2-3.4); Mean Corpuscular Hemoglobin 29.5 pg (25-34); Mean Corpuscular Hgb Conc 32.5 g/dL (32-36); Mean Corpuscular Volume 90.8 fL (80-100); Mean Platelet Volume 10.7 fL (7.4-10.4); Monocytes % (auto) 8.7 %; Neutrophils # (auto) 4.56 K/uL (1.4-6.5); Neutrophils % (auto) 66.1 %; Platelet Count 191 K/uL (130-400); RDW Coefficient of Variation 14.3 % (11.5-14.5); RDW Standard Deviation 48.1 fL (36.4-46.3); Red Blood Count 4.13 M/uL (4.7-6.1)
[2021-09-17] MEDS: LEVOTHYROXINE SODIUM 50 MCG TABLET PO SCH (05:56)
[2021-09-17 06:07] LABS: BUN Creatinine Ratio 27.5 (10-20); Calcium 8.9 mg/dl (8.5-10.1); Creatinine Clr Calc Pharmacy 87.9 ml/min; Est GFR (Non-African American) 86.3 ml/min; Potassium 3.4 mmol/L (3.5-5.1)
--- NOTE | 2021-09-17 06:50 | CT Scan Report ---
CT head/brain wo con CLINICAL HISTORY: 81 years-old Male with fall. Acute head injury status post fall TECHNIQUE: Multiple axial CT images of the head were obtained without contrast. A dose lowering tech nique was utilized adhering to the principles of ALARA. CT DOSE: 884.08 mGy.cm COMPARISON: Brain MRI of same day, Head CT 01/22/2021 FINDINGS: No acute intracranial hemorrhage, midline shift, intracranial mass, hydrocephalus, territorial ischem ia or abnormal extra-axial collection. Age-related involutional changes. White matter hypodensities s uggestive of chronic microvascular ischemic disease. The calvarium is intact. Minimal mucosal thickening of the ethmoid air cells. IMPRESSION: No acute intracranial abnormality. ACT 112: Negative or not required by law. The above report was generated using voice recognition software. It may contain grammatical, syntax o r spelling errors. Electronically signed by: Nilton Ryan M.D. 09/17/2021 6:49 AM
--- NOTE | 2021-09-17 07:17 | CT Scan Report ---
CT angio neck with con, CT angio head w con CLINICAL HISTORY: 81 years-old Male with difficulty speaking, fall, syncope. Acute strokelike symp toms with difficulty speaking. COMPARISON STUDY: Brain MRI of same day TECHNIQUE: Following the IV administration of 117 mL of Optiray, CT angiogram of the head and neck wa s performed from the aortic arch to the skull apex. Images are reviewed in the axial, sagittal, and c oronal planes. 3-D MIPS images are created and assessed. IV contrast was administered without complic ation. All measurements were calculated based on NASCET criteria. A dose lowering technique was util ized adhering to the principles of ALARA. CT DOSE: 579.87 mGy.cm FINDINGS: There is atherosclerotic plaque of the thoracic aortic arch. Patency of the innominate and imaged sub clavian arteries. The common carotid arteries are patent. Moderate atherosclerotic plaque of the aquino tid bulbs and proximal internal carotid arteries results in less than 50% stenosis bilaterally. The m iddle and anterior cerebral arteries are patent. Diminutive left A1 segment is likely developmental. Dominant left vertebral artery. The vertebral arteries are codominant and widely patent. The basilar and posterior cerebral arteries are also patent. The cerebral venous sinuses are patent. There is no abnormal intracranial enhancement. There is no pneumothorax. Unremarkable thyroid. Soft tissues are within normal limits. Degenerative c hanges of the cervical spine. IMPRESSION: 1. No aneurysm, dissection, high-grade stenosis or arterial occlusion. 2. Moderate atherosclerotic plaque of the carotid bulbs results in less than 50% stenosis bilaterally . ACT 112: Negative or not required by law. The above report was generated using voice recognition software. It may contain grammatical, syntax o r spelling errors. Electronically signed by: Nilton Ryan M.D. 09/17/2021 7:16 AM
--- NOTE | 2021-09-17 07:27 | Magnetic Resonance Report ---
MR brain wo/w con HISTORY: 81 years-old Male speech difficulty acutely altered mental status with aphasia and elevated blood pressure COMPARISON: CT head, CTA head and neck studies of same day, brain MRI 06/30/2019. TECHNIQUE: Multiplanar multisequence MRI of the brain was obtained both with and without the use of 9 cc Gadavist FINDINGS: The foot miter operator localizer images demonstrate no gross extracranial abnormality. No restricted diffusion to suggest acute or subacute infarct. Midline structures appear unremarkable. No acute intracranial hemo rrhage, midline shift, abnormal extra-axial collection, hydrocephalus or intracranial mass. There is no pathologic blooming artifact. Age-related involutional changes. Moderate T2/FLAIR hyperintense foc i are noted throughout the white matter. There is no abnormal intra-axial or extra-axial enhancement. Cerebral venous sinuses and major arterial flow voids appear patent. Trace mastoid effusions. Mild mu cosal thickening of the paranasal sinuses. The skull, orbits and soft tissues are unremarkable. There is a 2.8 x 2.5 x 0.3 cm subcutaneous lipoma of the superior frontal scalp near the vertex. IMPRESSION: 1. No acute intracranial abnormality. No acute or subacute infarct. 2. No abnormal enhancement. 3. Age-related involutional changes with chronic microvascular ischemic disease. ACT 112: Negative or not required by law. The above report was generated using voice recognition software. It may contain grammatical, syntax o r spelling errors. Electronically signed by: Nilton Ryan M.D. 09/17/2021 7:26 AM
[2021-09-17] MEDS: FLUDROCORTISONE ACETATE 0.1 MG TAB PO SCH ×2 (08:32→21:11)
[2021-09-17] MEDS: METOPROLOL SUCC 50MG EXT REL TAB PO SCH (08:33)
[2021-09-17] MEDS: ATORVASTATIN 20 MG TAB PO SCH (08:33)
[2021-09-17] MEDS: CARBIDOPA/LEVODOPA 25-250 1 EA TAB PO SCH ×4 (08:33→21:11)
[2021-09-17] MEDS: SENNA 8.6 MG TAB PO SCH ×2 (08:33→21:11)
[2021-09-17] MEDS: POTASSIUM CHLORIDE 10 MEQ TABCR PO SCH ×2 (08:33→18:14)
--- NOTE | 2021-09-17 08:37 | CT Scan Report ---
CT lumbar spine wo con HISTORY: 81 years-old Male fall acute back pain status post fall COMPARISON: CT abdomen and pelvis 04/13/2021 TECHNIQUE: Multiple axial CT images of the lumbar spine were obtained without the use of IV contrast. A dose lowering technique was used consistent with the principals of ALARA. FINDINGS: Multilevel intervertebral disc space narrowing, moderate at L3-L4. L3-L4 and L4-L5 vacuum disc phenom joss. There is mild multilevel spondylitic spurring with small posterior disc osteophyte complex forma tions. Moderate to severe multilevel facet arthrosis. There is no acute fracture or subluxation. Mode rate degeneration with partial bony fusion of the SI joints. No acute sacral insufficiency fracture. Unchanged appearance of the left L1 transverse process suggestive of a healed chronic fracture. No hi gh-grade central canal or neural foraminal narrowing. There is at least mild multilevel central canal or neural foraminal stenosis. No paravertebral edema. Trace right pleural effusion. No acute intra-abdominal abnormality identified . IMPRESSION: No acute fracture or subluxation. ACT 112: Negative or not required by law. The above report was generated using voice recognition software. It may contain grammatical, syntax o r spelling errors. Electronically signed by: Nilton Ryan M.D. 09/17/2021 8:35 AM
[2021-09-17] MEDS ORDERED: CARBIDOPA/LEVODOPA 25/100MG TAB PO SCH (09:00)
[2021-09-17] MEDS ORDERED: POTASSIUM CHLORIDE CRTAB 20 MEQ TABCR PO STA (11:24)
--- NOTE | 2021-09-17 12:08 | Hospitalist Progress Note ---
Date of Service September 17, 2021 Assessment & Plan (1) Syncope: Plan: 2nd severe orthostasis 70-point drop this is despite IV fluids since admission along with his typical florinef BID add midodrine 2.5mg TID may have to lower the metoprolol to 25mg orthostatic checks in am (2) Dysarthria: Plan: Patient reports difficulty with word finding as well as slurred speech. Question of visual and auditory hallucinations at home. MRI brain negative for acute or subacute CVA. Nothing infectious or metabolic found to date. Check sed rate, crp, procal, B12 level. Check KUB x-ray - r/o fecal impaction, r/o stones. I will ask Dr Alvarado from neurology to evaluate him in am. Are his presenting symptoms due to progressive dementia in setting of parkinson's? (3) Parkinson's disease: Plan: Patient follows with Neurology/Movement Disorder clinic at [facility]. He is scheduled to see them in November. Sees [facility] neurology locally. Dosage of Carbidopa/levodopa was increased in July. Continue Carbidopa/Levodopa QID Continue Aricept 10mg po qHS Continue Clonazepam 2mg po qHS Neuro consult requested Pt's also expressed concerns about depression - this is despite lexapro usage. Will ask psychiatry to see during the stay as well. PT evaluation. (4) Hypothyroidism: Plan: Chronic. TSH within normal limits at 1.11 Continue Synthroid 50mcg po daily (5) PAF (paroxysmal atrial fibrillation): Plan: Continue metoprolol 50mg po daily No anticoagulation due to increased fall risk No epidoes of PAF while here thus far (6) Neurogenic bladder: Plan: Patient wears a condom catheter qHS (7) Depression: Plan: Psych consult requested. Increase lexapro? add additional med? Continue Escitalopram 10mg po daily in meantime (8) Chronic constipation: Plan: KUB x-ray today with distal constipation Dulcolax suppos x 1 Maintenance meds Plan: extensively updated by phone this evening Admission and Anticipated Discharge Date Admission Date: September 16, 2021 Subjective per staff members - no a.fib on monitoring still with word finding difficulties orthostatics checked shortly after my bed side visit - orthos were positive, 70- point drop from supine --> standing patient reported dizziness during my visit he knew he was in the hospital he could recognize that his speech and thinking were still not back to normal denies headache, sore throat, cough, dyspnea, cp, abd pain, nausea, diarrhea, dysuria does have urinary incontinence but not unusual for him Review of Systems Review of Systems: gen - no fevers or chills cv - no orthopnea or chest pain pulm - no dyspnea or congestion GI - no vomiting Physical Exam 2 Physical Exam: gen - mild word finding difficulties, masked facies, NAD mouth - MMM neck - no JVD heart - RRR, s1 s2 lungs - cta b/l abd - soft NT ND BS+ ext - no edema neuro - strength 5/5 x 4 exts psych - oriented to person, place, year/time Results & Data Results & Data ([facility]) Vital Signs (Past 12 Hours) Vital Signs Temp Pulse Resp BP Pulse Ox 09/17/21 10:40 36.3 C L 58 L 20 127/78 97 09/17/21 09:00 37 C 67 20 176/89 H 96 09/17/21 03:16 72 18 153/73 H 99 Laboratory Results Laboratory Results - last 24 hr 09/17/21 09/17/21 09/17/21 05:08 05:08 13:01 WBC 6.90 RBC 4.13 L Hgb 12.2 L Hct 37.5 L MCV 90.8 MCH 29.5 MCHC 32.5 RDW Std Deviation 48.1 H RDW Coeff of Imelda 14.3 Plt Count 191 MPV 10.7 H Immature Gran % (Auto) 0.0 Neut % (Auto) 66.1 Lymph % (Auto) 22.0 Cannon % (Auto) 8.7 Eos % (Auto) 2.9 Baso % (Auto) 0.3 Neut # (Auto) 4.56 Lymph # (Auto) 1.52 Cannon # (Auto) 0.60 H Eos # (Auto) 0.20 Baso # (Auto) 0.02 Immature Gran # (Auto) 0.00 ESR 19 Sodium 140 Potassium 3.4 L Chloride 105 Carbon Dioxide 30 Anion Gap 5.0 BUN 21 H Creatinine 0.77 Est Cr Clr Drug Dosing 87.9 Est GFR ( Amer) 100.0 Est GFR (Non-Af Amer) 86.3 BUN/Creatinine Ratio 27.5 H Glucose 97 Calcium 8.9 Ammonia C-Reactive Protein Prostate Specific Ag Vitamin B12 Procalcitonin 09/17/21 09/17/21 09/17/21 13:01 13:01 13:01 WBC RBC Hgb Hct MCV MCH MCHC RDW Std Deviation RDW Coeff of Imelda Plt Count MPV Immature Gran % (Auto) Neut % (Auto) Lymph % (Auto) Cannon % (Auto) Eos % (Auto) Baso % (Auto) Neut # (Auto) Lymph # (Auto) Cannon # (Auto) Eos # (Auto) Baso # (Auto) Immature Gran # (Auto) ESR Sodium Potassium Chloride Carbon Dioxide Anion Gap BUN Creatinine Est Cr Clr Drug Dosing Est GFR ( Amer) Est GFR (Non-Af Amer) BUN/Creatinine Ratio Glucose Calcium Ammonia 11.4 C-Reactive Protein < 0.29 Prostate Specific Ag 2.050 Vitamin B12 Procalcitonin < 0.05 09/17/21 13:01 WBC RBC Hgb Hct MCV MCH MCHC RDW Std Deviation RDW Coeff of Imelda Plt Count MPV Immature Gran % (Auto) Neut % (Auto) Lymph % (Auto) Cannon % (Auto) Eos % (Auto) Baso % (Auto) Neut # (Auto) Lymph # (Auto) Cannon # (Auto) Eos # (Auto) Baso # (Auto) Immature Gran # (Auto) ESR Sodium Potassium Chloride Carbon Dioxide Anion Gap BUN Creatinine Est Cr Clr Drug Dosing Est GFR ( Amer) Est GFR (Non-Af Amer) BUN/Creatinine Ratio Glucose Calcium Ammonia C-Reactive Protein Prostate Specific Ag Vitamin B12 641 Procalcitonin PG Care Time/CCT Total # of Minutes Spent Total Time Spent with Patient: Total time spent is greater than 50% in coordination of care (as documented) at patient's floor/unit and/or counseling patient: Coding Level of Care Code 73993 Subseq Hosp Care Lvl 3 Diagnoses Syncope R55 Syncope type: unspecified Dysarthria R47.1 Parkinson's disease G20 Hypothyroidism E03.9 PAF (paroxysmal atrial fibrillation) I48.0 Neurogenic bladder N31.9 Depression F32.9 Chronic constipation K59.09 (1) Syncope Syncope type: unspecified Qualified Code(s): R55 - Syncope and collapse
--- NOTE | 2021-09-17 13:09 | Electrocardiogram Report ---
Test Reason : Blood Pressure : / mmHG Vent. Rate : 064 BPM Atrial Rate : 064 BPM P-R Int : 150 ms QRS Dur : 090 ms QT Int : 428 ms P-R-T Axes : 070 015 022 degrees QTc Int : 441 ms Sinus rhythm with Premature supraventricular complexes Otherwise normal ECG When compared with ECG of 13-APR-2021 14:23, T wave amplitude has increased in Anterior leads Confirmed by Perez Wu ([id number]) on 09/17/2021 1:09:08 PM Referred By: REFERRED SELF Confirmed By:Perez Wu
--- NOTE | 2021-09-17 13:11 | XRay Report ---
KUB HISTORY: ?constipation? renal stones? COMPARISON: KUB 05/11/2021. FINDINGS: The bowel gas pattern is unremarkable. There are no dilated loops of small bowel to suggest an obstruction. No renal calculi. No ureteral calculi. No pneumoperitoneum or pneumatosis. Small to moderate amount well-formed stool within the colon and rectum. This has slightly improved. Moderate degenerative changes within the bilateral hips. IMPRESSION: Small to moderate amount of well-formed stool seen throughout the colon. This has slightly improved i n the interval. ACT 112: Negative or not required by law. Electronically signed by: Micha Cloud M.D. 09/17/2021 1:10 PM
[2021-09-17 13:36] LABS: C Reactive Protein < 0.29 mg/dl (0-0.29)
[2021-09-17] MEDS ORDERED: bisacodyL 10 MG SUPP PR STA (15:34)
[2021-09-17] MEDS: MIDODRINE HCL 2.5 MG TAB PO SCH (18:14)
[2021-09-17] MEDS: DONEPEZIL HCL 10 MG TAB PO SCH (21:11)
[2021-09-17] MEDS: ESCITALOPRAM OXALATE 10 MG TAB PO SCH (21:11)
[2021-09-17] MEDS: clonazePAM 1 MG TAB PO SCH (21:11)
[2021-09-18] MEDS: LEVOTHYROXINE SODIUM 50 MCG TABLET PO SCH (06:01)
[2021-09-18 08:20] LABS: BUN Creatinine Ratio 23.7 (10-20); Calcium 8.6 mg/dl (8.5-10.1); Est GFR (African American) 93.8 ml/min; Est GFR (Non-African American) 80.9 ml/min; Potassium 3.6 mmol/L (3.5-5.1)
[2021-09-18] MEDS: CARBIDOPA/LEVODOPA 25-250 1 EA TAB PO SCH ×3 (09:31→20:35)
[2021-09-18] MEDS: MIDODRINE HCL 2.5 MG TAB PO SCH ×3 (09:31→17:26)
[2021-09-18] MEDS: ATORVASTATIN 20 MG TAB PO SCH (09:31)
[2021-09-18] MEDS: FLUDROCORTISONE ACETATE 0.1 MG TAB PO SCH ×2 (09:32→20:36)
[2021-09-18] MEDS: SENNA 8.6 MG TAB PO SCH ×2 (09:32→20:34)
[2021-09-18] MEDS: POTASSIUM CHLORIDE 10 MEQ TABCR PO SCH ×2 (09:32→17:27)
[2021-09-18] MEDS: METOPROLOL SUCC 50MG EXT REL TAB PO SCH (09:32)
--- NOTE | 2021-09-18 09:52 | Neurology Consultation ---
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 Patient's condition has been progressive, further characterized by development of resting tremor, mild rigidity, bradykinesia, and dementia. His clinical history seems suggestive of multiple systems atrophy, parkinsonian variant, rather than idiopathic Parkinson's disease. However, his neurodegenerative disease has been present for over 10 years and it is difficult to make a more specific diagnosis retrospectively at this point in time. He presented to the emergency department with syncope followed by confusion, speech changes, possible echolalia, and affe ctive change, possibly pseudobulbar affect. Currently, he is appropriate, oriented, and with a fairly normal speech pattern and affect. He does exhibit some difficulty with short-term memory. Given patient's ongoing difficulty with orthostatic hypotension I would recommend reducing his dosage of Sinemet to 25/250 3 times daily. Continue with midodrine. Continue with donepezil at the current dosage. Would consider adding memantine going forward, if patient's cognitive status were to continue to decline. Continue with clonazepam and Lexapro. Monitor for recurrence of possible pseudobulbar affect. Would consider a trial of Nuedexta if episodes become more frequent or prominent. Monitor for recurrence of auditory and visual hallucinations. Unclear if this reported symptom is a hypnagogic phenomena, however. Consider obtaining a sleep medicine evaluation. It would not be unusual for a patient with Parkinson's disease or other parkinsonian syndromes to have REM sleep behavior disorder as well. Would not recommend starting Nuplazid for Parkinson's associated psychosis/hallucinations at this time. Patient may continue to follow with his neurologist at [facility]. History of Present Illness Reason for Consultation: worsening Parkinsonian syndrome Requesting Physician: Dr. Endy Shin Attending Physician: Endy Shin History of Present Illness Patient is a 81-year-old male with a history of atypical parkinsonian syndrome. I had evaluated this patient previously for an initial assessment of his parkinsonism this past March. He was originally diagnosed in 2010, presenting with orthostatic hypotension and difficulty with gait, balance, and postural instability. These issues have been prominent and progressive over the course of his illness although he has developed a bilateral upper extremity resting tremor, fairly symmetric. He has had associated difficulty with constipation and bladder control since onset of his condition as well. He is mildly bradykinetic and rigid as well. Patient's been following with a movement disorder specialist affiliated with [facility], Dr. Zamudio. He is prescribed Sinemet, dosage last increase this past July although benefit modest at best. He is also prescribed donepezil to address her mild associated dementia and have been taking Florinef to address orthostatic hypotension. He does endorse occasional hallucinations, describes an auditory hallucination characterized by instrumental music, horns, and occasional visual hallucinations, dreamlike state, perceives that his is in the room with him. These episodes tend to occur in the evening. He denies experiencing significant nocturnal restlessness or symptoms of restless leg syndrome. He does not share a bed with his spouse, does have a hospital bed at home. Has been ambulating with a walker. Patient presented to the emergency department on September 16 after a syncopal episode followed by transient confusion and speech changes, repeating words, and inappropriate laughter. A CT of the head was negative for hemorrhage or acute process. CT angiography of the head and neck was negative for significant vascular lesion. Brain MRI was negative for acute or subacute infarct. There was evidence of generalized atrophy and chronic small vessel ischemic disease. Imaging not suggestive of normal pressure hydrocephalus. Does have bilateral hippocampal atrophy. Does not have focal midbrain atrophy (hummingbird sign) or specific pontine signal change (hot crossed buns sign) on MRI per my review of the images. Allergies Allergy/AdvReac Type Severity Reaction Status Date / Time No Known Allergies Allergy Verified 09/16/21 21:44 Home Medications Medication Instructions Recorded Confirmed Type atorvastatin 20 mg tablet (Lipitor) 20 mg PO QAM tab 05/11/19 09/16/21 History cholecalciferol (vitamin D3) 50 2,000 unit PO HS cap 05/11/19 09/16/21 History mcg (2,000 unit) capsule (Vitamin D3) clonazepam 1 mg tablet 2 mg PO HS #45 tab 05/11/19 09/16/21 History donepezil 10 mg tablet (Aricept) 10 mg PO HS tab 05/11/19 09/16/21 History escitalopram oxalate 10 mg tablet 10 mg PO HS 06/30/19 09/16/21 History (Lexapro) levothyroxine 50 mcg tablet 50 mcg PO QAM 06/30/19 09/16/21 History (Synthroid) melatonin 10 mg tablet 10 mg PO HS 06/30/19 09/16/21 History multivitamin (Daily Multi-Vitamin) 1 tab PO PM 06/30/19 09/16/21 History potassium chloride 10 mEq 10 meq PO BID 06/30/19 09/16/21 History capsule,extended release metoprolol succinate 50 mg 50 mg PO QAM 01/22/21 09/16/21 History tablet,extended release 24 hr (Toprol XL) polyethylene glycol 3350 17 8.5 gm PO DAILY PRN 05/11/21 09/16/21 History gram/dose oral powder (Miralax) carbidopa 25 mg-levodopa 250 mg 1 tab PO QID 09/16/21 09/16/21 History tablet fludrocortisone 0.1 mg tablet 0.1 mg PO BID 09/16/21 09/16/21 History sennosides 8.6 mg tablet (Senokot) 17.2 mg PO BID 09/16/21 09/16/21 History Patient History Medical History Benign prostatic hyperplasia with urinary obstruction Chronic constipation Closed head injury Depression Hypotension Hypothyroidism Lumbar pain Lumbar post-laminectomy syndrome Prior left L3-4 hemilaminectomy Memory loss Neurogenic bladder PAF (paroxysmal atrial fibrillation) Parkinson's disease Sacral insufficiency fracture Spinal stenosis of lumbar region Urge incontinence of urine Surgical History History of back surgery History of tonsillectomy 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) Family History Unknown Alzheimer disease Sister Diabetes Cancer Other Family history non-contributory Social History Smoking Status: Never smoker Tobacco Type: Cigarettes Second Hand Exposure: No; Hx Alcohol Use: No Hx Substance Use: No Preferred Language: Panamanian Communication Ability: Impaired 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 Universal Required: No Beliefs That Will Affect Care: None marital status: Current Living Situation: Spouse and Family current occupational status: retired Feels Safe at Home: Yes Assistive Devices: Cane, Glasses and Walker Review of Systems Constitutional: no fever and no chills Eyes: no blind spots and no diplopia Ear, Nose, Mouth, Throat: no ear pain and no hearing loss Respiratory: no cough and no dyspnea Cardiovascular: no chest pain and no palpitations Gastrointestinal: + constipation Genitourinary: + urinary incontinence Musculoskeletal: no muscle weakness and no muscle atrophy Integumentary: no rash and no lesions Neurologic: as per Subjective / HPI, + gait abnormality, + falls, + lack of coordination, + tremor(s), + syncope and + memory loss Psychiatric: no behavioral changes, no depression, no abnormal sleep pattern and no anxiety Hematologic / Lymphatic: no easy bruising and no lymphadenopathy Exam (Neuro) Constitutional: well developed and well nourished; no acute distress Eyes: normal visual ibarra by confrontation, PERRL, normal accommodation and EOM intact bilaterally; no fundoscopic abnormality, no nystagmus and no papilledema Cardiovascular: Vessels: normal carotid upstroke; no carotid bruit Neurologic: Oriented to:: Person, Place and Time Memory: Remote Intact; negative Short Term Intact Attention: Span Intact and Concentration Intact Language: Naming Objects and Repeating Phrases Speech Fluency: negative Dysarthria Speech Aphasia: negative Aphasia Fund of Knowledge: Current Events, Past History and Vocabulary Cranial Nerves: Normal II (Visual ibarra full to confrontation, visual acuity normal), III, IV, (Pupils equal round reactive to light and accommodation, eye movements normal), V (Facial sensation intact), VII (There is no facial droop or weakness), VIII (Hearing intact), IX, X (Palate elevates to midline), XI (Shoulder shrug intact) and XII (Tongue protrudes to midline) Motor Strength: Normal Lower Extremities and Normal Upper Extremities; negative Pronator Drift Rigidity: Rigidity Muscle Bulk/Involuntary Movements: Rest Tremor (Arm); negative Muscle Atrophy Sensation: Light Touch Intact, Pain/Temperature Intact and Proprioception Intact; negative Vibration Intact Coordination: Finger-Nose Abnormal and Heel-Machado Abnormal; negative Dysdiadochokinesia Deep Tendon Reflexes: Rt Triceps: 2+, Lt Triceps: 2+, Rt Biceps: 2+, Lt Biceps: 2+, Rt Brachioradialis: 2+, Lt Brachioradialis: 2+, Rt Patellar: 2+, Lt Patellar: 2+, Rt Ankle: 1+ and Lt Ankle: 1+ Special Tests: negative Babinski Present Details: Gait could not be safely tested in context of patient's current neurological/medical status. Patient is mildly bradykinetic, slightly rigid, right greater than left arm. Exhibits a bilateral upper extremity resting tremor, fairly symmetric. Movements are not grossly ataxic although he does exhibit some apraxia of movement with the left hand. Results & Data ([facility]) Vital Signs (Past 12 Hours) Vital Signs Temp Pulse Pulse Pulse Resp BP BP 09/18/21 07:28 53 L 09/18/21 07:03 36.3 C L 60 18 156/88 H 09/18/21 04:33 36.8 C 66 18 132/73 09/17/21 22:31 36.8 C 65 18 201/92 H 194/101 H 09/17/21 22:24 61 09/17/21 22:15 78 09/17/21 21:08 36.6 C 68 16 177/90 H Pulse Ox 09/18/21 07:28 09/18/21 07:03 97 09/18/21 04:33 94 09/17/21 22:31 98 09/17/21 22:24 09/17/21 22:15 09/17/21 21:08 94 Laboratory Results WBC 6.90, hemoglobin 12.2, hematocrit 37.5, platelet count 191, ESR 19, sodium 142, potassium 3.6, BUN 21, creatinine 0.90, glucose 94, calcium 8.6, ammonia 11.4, C-reactive protein less than 0.29, vitamin B12 641, TSH 1.110, urinalysis unremarkable, SARS-CoV-[address] Findings [address] of the head, CT angiography of the head and neck, and brain MRI have been reviewed and are as described in the history of present illness. Electrocardiogram reveals a sinus rhythm with premature supraventricular complexes, 64 bpm. Holter monitoring completed last month revealed sinus arrhythmia and premature beats but no atrial fibrillation. An echocardiogram completed this past May revealed a normal left ventricular size, systolic function, ejection fraction 60 to 65%, moderate concentric left ventricular hypertrophy, moderate left atrial dilation, no significant valvular abnormalities, very small pericardial effusion without tamponade physiology. PG Care Time/CCT Total # of Minutes Spent Total Time Spent with Patient: Total time spent is greater than 50% in coordination of care (as documented) at patient's floor/unit and/or counseling patient: Coding Level of Care Code 16388 Initial Inpt Care Lvl 3 Diagnoses Atypical parkinsonism G20
[2021-09-18] MEDS: POLYETHYLENE (MIRALAX) 17 GM PACK PO PRN (12:58)
--- NOTE | 2021-09-18 14:14 | Psychiatric Consultation ---
Date of Consultation September 18, 2021 Impression / Recommendations Impression 81 yo male with a long hx of Klonopin rx for REM sleep disorder, now presenting with slurring of speech and near syncope due to orthostatic hypotension (for which takes Cortef). Also prescribed Lexapro and expressed concerns about depression. 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 Shin. Consider dose reduction in klonopin no faster than 0.5 mg intervals q 2 weeks to find minimal effective dose (unless falls/bp dictate otherwise) as suspect he is not clearing as well as when that dose is started. K lonopin significantly increase risk for falls in patients >65 (particularly with parkinsons). He says it's for REM sleep disorder (acted out dreams) and he's been on it for years so can't be stopped abruptly. I wouldn't adjust his lexapro until the klonopin is addressed. The patient does not want any further assistance from our service and voiced understanding of these recommendations. Psych History Identifying Data Mr. Barba is a 81 yo male with a hx of Parkinson's admit with slurred speech and orthostasis. Consult is by Dr. Shin for depression. Chief Complaint "Sure I get sad, I have a degenerative neurologic condition but I'm not clinical". History of Present Illness Mr. Barba seemed confused last pm about the indication for the consult and was not particularly cooperative with the liaison nurse at that time. Today he is pleasant, thoughtful, and brightens spontaneously in conversation. He said that he appreciates his concern but feels he is coping well and denies any vegetative symptoms. He admits that COVID has been "rough" in that he's used to traveling and being outside and hasn't been able to visit family as much in the [facility] area. He was well oriented talking about the [place]storm currently in [place]. He states that a close friend 2 weeks ago and he was not able to get there for the services but does not see a need for grief counseling, etc. He is aware that he takes Lexapro and doesn't have any concerns about it, he'd prefer to minimize medication as "it's not that I don't get anxious it's just I'm already on a lot". When asked specifically about his hs [place] he states this is a longstanding rx for REM sleep disorder as hx of motor activity/acting out dreams. He has been on this dose "for years". Past Psychiatric History Previous Psych History: denies formal psych hx Outpatient Services: none Previous Psych Admissions: denied Additional Notes: states he has never been suicidal or touched a gun for years. 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 Allergies Allergy/AdvReac Type Severity Reaction Status Date / Time No Known Allergies Allergy Verified 09/16/21 21:44 Home Medications Medication Instructions Recorded Confirmed Type atorvastatin 20 mg tablet (Lipitor) 20 mg PO QAM tab 05/11/19 09/16/21 History cholecalciferol (vitamin D3) 50 2,000 unit PO HS cap 05/11/19 09/16/21 History mcg (2,000 unit) capsule (Vitamin D3) clonazepam 1 mg tablet 2 mg PO HS #45 tab 05/11/19 09/16/21 History donepezil 10 mg tablet (Aricept) 10 mg PO HS tab 05/11/19 09/16/21 History escitalopram oxalate 10 mg tablet 10 mg PO HS 06/30/19 09/16/21 History (Lexapro) levothyroxine 50 mcg tablet 50 mcg PO QAM 06/30/19 09/16/21 History (Synthroid) melatonin 10 mg tablet 10 mg PO HS 06/30/19 09/16/21 History multivitamin (Daily Multi-Vitamin) 1 tab PO PM 06/30/19 09/16/21 History potassium chloride 10 mEq 10 meq PO BID 06/30/19 09/16/21 History capsule,extended release metoprolol succinate 50 mg 50 mg PO QAM 01/22/21 09/16/21 History tablet,extended release 24 hr (Toprol XL) polyethylene glycol 3350 17 8.5 gm PO DAILY PRN 05/11/21 09/16/21 History gram/dose oral powder (Miralax) carbidopa 25 mg-levodopa 250 mg 1 tab PO QID 09/16/21 09/16/21 History tablet fludrocortisone 0.1 mg tablet 0.1 mg PO BID 09/16/21 09/16/21 History sennosides 8.6 mg tablet (Senokot) 17.2 mg PO BID 09/16/21 09/16/21 History Personal History Living Arrangements: Home (2nd , near [facility]) Highest Grade Completed: Graduate School (Ph D in [employer], [employer]) 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) Marital Status: Beliefs That Will Affect Care: None Patient History Medical History Benign prostatic hyperplasia with urinary obstruction Chronic constipation Closed head injury Depression Hypotension Hypothyroidism Lumbar pain Lumbar post-laminectomy syndrome Prior left L3-4 hemilaminectomy Memory loss Neurogenic bladder PAF (paroxysmal atrial fibrillation) Parkinson's disease Sacral insufficiency fracture Spinal stenosis of lumbar region Urge incontinence of urine Surgical History History of back surgery History of tonsillectomy 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) Family History Unknown Alzheimer disease Sister Diabetes Cancer Other Family history non-contributory Social History Smoking Status: Never smoker Tobacco Type: Cigarettes Second Hand Exposure: No; Hx Alcohol Use: No Hx Substance Use: No Preferred Language: Romanian Communication Ability: Impaired Flour Mixer Required: No Beliefs That Will Affect Care: None marital status: Current Living Situation: Spouse and Family current occupational status: retired Feels Safe at Home: Yes Assistive Devices: Walker Physical Exam Psychiatric: Orientation: alert and oriented x 3 Apperance: appropriately dressed and appropriately groomed Eye Contact: good eye contact Motor Behavior: no abnormal motor movements Speech: normal rate/rhythm/volume of speech Affect: euthymic affect Mood: no depressed mood (reports sadness appropriate to situation) Thought Process: goal directed thought process Thought Content: reality based without delusions Suicidal Thoughts: denies suicidal thoughts Homicidal Thoughts: denies homicidal thoughts Hallucinations: no auditory hallucinations and no visual hallucinations Cognition: attention grossly intact and language grossly intact Estimated Intelligence: consistent with education level Insight: + fair insight Vital Signs (Past 24 Hours): Last Vital Signs Temp 36.3 C L 09/18/21 10:49 Pulse 59 L 01/04/22 10:49 Resp 18 09/18/21 10:49 BP 116/70 09/18/21 10:49 Pulse Ox 99 09/18/21 10:49 Review of Systems All systems reviewed & are unremarkable except as noted in HPI & below Results & Data (PSY) Laboratory Results 09/18/21 09/17/21 Range/Units 07:49 13:01 Sodium 142 (136-145) mmol/L Potassium 3.6 (3.5-5.1) mmol/L Chloride 107 (98-107) mmol/L Carbon Dioxide 32 (21-32) mmol/L Anion Gap 3.0 (3-11) BUN 21 H (7-18) mg/dl Creatinine 0.90 (0.6-1.4) mg/dl Est Cr Clr Drug Dosing 73.0 ml/min Est GFR ( Amer) 93.8 ml/min Est GFR (Non-Af Amer) 80.9 ml/min BUN/Creatinine Ratio 23.7 H (10-20) Glucose 94 (70-99) mg/dl Calcium 8.6 (8.5-10.1) mg/dl Vitamin B12 641 (193-986) pg/ml Medications Administered Atorvastatin Calcium (Atorvastatin 20 Mg Tab) 20 mg PO [facility] Stop: 10/17/21 08:59 Last Admin: 09/18/21 09:31 Dose: 20 mg Documented by: [id number] Admin: 09/17/21 08:33 Dose: 20 mg Documented by: [id number] Clonazepam (Clonazepam 1 Mg Tab) 2 mg PO [facility] Stop: 10/17/21 20:59 Last Admin: 09/17/21 21:11 Dose: 2 mg Documented by: [id number] Donepezil HCl (Donepezil Hcl 10 Mg Tab) 10 mg PO [facility] Stop: 10/17/21 20:59 Last Admin: 09/17/21 21:11 Dose: 10 mg Documented by: [id number] Escitalopram Oxalate (Escitalopram Oxalate 10 Mg Tab) 10 mg PO [facility] Stop: 10/17/21 20:59 Last Admin: 09/17/21 21:11 Dose: 10 mg Documented by: [id number] Fludrocortisone Acetate (Fludrocortisone Acetate 0.1 Mg Tab) 0.1 mg PO BID [facility] Stop: 10/17/21 08:59 Last Admin: 09/18/21 09:32 Dose: 0.1 mg Documented by: [id number] Admin: 09/17/21 21:11 Dose: 0.1 mg Documented by: [id number] Admin: 09/17/21 08:32 Dose: 0.1 mg Documented by: [id number] Levothyroxine Sodium (Levothyroxine Sodium 50 Mcg Tablet) 50 mcg PO DAILYBB [facility] Stop: 10/17/21 06:29 Last Admin: 09/18/21 06:01 Dose: 50 mcg Documented by: [id number] Admin: 09/17/21 05:56 Dose: 50 mcg Documented by: [id number] Metoprolol Succinate (Metoprolol Succ 50mg Ext Rel Tab) 50 mg PO QAM [facility] Stop: 10/17/21 08:59 Last Admin: 09/18/21 09:32 Dose: 50 mg Documented by: [id number] Admin: 09/17/21 08:33 Dose: 50 mg Documented by: [id number] Midodrine (Midodrine Hcl 2.5 Mg Tab) 2.5 mg PO TID@0800,1200,1700 [facility] Stop: 10/17/21 16:59 Last Admin: 09/18/21 12:57 Dose: 2.5 mg Documented by: [id number] Admin: 09/18/21 09:31 Dose: 2.5 mg Documented by: [id number] Admin: 09/17/21 18:14 Dose: 2.5 mg Documented by: [id number] Polyethylene Glycol (Polyethylene (Miralax) 17 Gm Pack) 8.5 gm PO DAILY PRN PRN Reason: Constipation Stop: 10/17/21 00:28 Last Admin: 09/18/21 12:58 Dose: 8.5 gm Documented by: [id number] Potassium Chloride (Potassium Chloride 10 Meq Tabcr) 10 meq PO BID17 [facility] Stop: 10/17/21 08:59 Last Admin: 09/18/21 09:32 Dose: 10 meq Documented by: [id number] Admin: 09/17/21 18:14 Dose: 10 meq Documented by: [id number] Admin: 09/17/21 08:33 Dose: 10 meq Documented by: [id number] Sennosides (Senna 8.6 Mg Tab) 17.2 mg PO BID [facility] Stop: 10/17/21 08:59 Last Admin: 09/18/21 09:32 Dose: 17.2 mg Documented by: [id number] Admin: 09/17/21 21:11 Dose: 17.2 mg Documented by: [id number] Admin: 09/17/21 08:33 Dose: 17.2 mg Documented by: [id number] Coding Level of Care Code 21186 Inpt Consult Level 3 Diagnoses Adjustment disorder F43.20 Atypical parkinsonism G20 Uncontrolled REM sleep behavior disorder G47.52 Syncope R55 Syncope type: unspecified
[2021-09-18] MEDS ORDERED: SOD PHOSPHATE/SOD BIPHOSPHATE ENEMA 132 ML BTL PR STA (16:11)
--- NOTE | 2021-09-18 18:00 | Hospitalist Progress Note ---
Date of Service September 18, 2021 Assessment & Plan (1) Syncope: Plan: 2nd severe orthostasis 70-point drop on 09/17/21 despite his usual florinef BID midodrine 2.5mg TID added on 09/17/21 orthostatics today - 40 point drop, dizziness still present but improved; SBP on standing, however, was [address] Alvarado - recommended reducing his sinemet to TID dosing from QID due to concern that sinemet could be contributing to orthostasis if this change does not result in improved orthostasis then lower his metoprolol from 50 to 25 recheck orthostatics in am consider compression stockings as outpatient (2) Dysarthria: Plan: improved today. Patient and his reported difficulty with word finding as well as slurred speech at home. Question of visual and auditory hallucinations at home as well. MRI brain negative for acute or subacute CVA. Nothing infectious or metabolic found to date. sed rate, crp, procal, B12 level -- all neg/normal. KUB x-ray - mild constipation but no impaction, no stones. appreciate Dr Alvarado's consultation and recommendations much of his presenting symptoms could be from progressive PD and PD-dementia I have not found any infectious or metabolic issue that could be contributing to his presentation will need close f/u with his neurologist at [facility] (3) Parkinson's disease: Plan: Patient follows with Neurology/Movement Disorder clinic at [facility]. He is scheduled to see them in November. Sees [facility] neurology locally. Dosage of Carbidopa/levodopa was increased in July. Seen by Dr Alvarado today -- sinemet dose reduced to TID at his recommendation (see above). Continue Aricept 10mg po qHS Continue Clonazepam 2mg po qHS - this is a chronic med for him "for years" per . Psych saw patient in consult - expressed concerns that this could be giving him side effects. I discussed this concern with his - they will address with his outpatient providers. Leave for now. No changes in lexapro advised at this time. PT/OT saw in consult - cleared for home, but consider home PT/OT. (4) Hypothyroidism: Plan: Chronic. TSH within normal limits at 1.11 Continue Synthroid 50mcg po daily (5) PAF (paroxysmal atrial fibrillation): Plan: Continue metoprolol 50mg po daily but may need to lower to 25mg if orthostasis remains severe No anticoagulation due to increased fall risk No episodes of PAF to date (6) Neurogenic bladder: Plan: cont condom catheter HS (7) Depression: Plan: Psych consult appreciated. Wean klonipin off due to concerns of side effects? see discussion above. (8) Chronic constipation: Plan: no BM yet fleets enema x 1 per rectum Maintenance meds Plan: extensively updated at bedside today observe overnight hopefully home tomorrow Admission and Anticipated Discharge Date Admission Date: September 16, 2021 Subjective overnight - no issues tele - no a.fib patient feels better his speech is more fluent today - he acknowledges, however, that speech/cognition is still not back to normal eating normally no infectious symptoms during orthostatic BP checks today his systolic BP dropped 40 points with standing systolic BP of 89 he was mildly dizzy/lightheaded during those orthostatics seen by neurology/psych today -- their recommendations were discussed with pt's who was at bedside today Review of Systems Review of Systems: gen - no fever/chills cv - no chest pain pulm - no cough/congestion/dyspnea GI - still constipated; never had the dulcolax suppos yesterday; no N/V Physical Exam Physical Exam: gen - looks much better today; sentence structure/speech improved; not as much word finding issues; affect modestly more full mouth - MMM neck - no JVD heart - RRR, s1 s2 lungs - cta b/l abd - soft NT ND BS+ ext - no edema, pulses 2+ b/l psych - oriented x 3 Results & Data Results & Data ([facility]) Vital Signs (Past 12 Hours) Vital Signs Temp Pulse Pulse Resp BP Pulse Ox 09/18/21 15:34 36.6 C 46 L 18 97 09/18/21 14:17 66 09/18/21 10:49 36.3 C L 59 L 18 116/70 99 09/18/21 07:28 53 L 09/18/21 07:03 36.3 C L 60 18 156/88 H 97 Laboratory Results Laboratory Results - last 24 hr 09/18/21 07:49 Sodium 142 Potassium 3.6 Chloride 107 Carbon Dioxide 32 Anion Gap 3.0 BUN 21 H Creatinine 0.90 Est Cr Clr Drug Dosing 73.0 Est GFR ( Amer) 93.8 Est GFR (Non-Af Amer) 80.9 BUN/Creatinine Ratio 23.7 H Glucose 94 Calcium 8.6 PG Care Time/CCT Total # of Minutes Spent Total Time Spent with Patient: Total time spent is greater than 50% in coordination of care (as documented) at patient's floor/unit and/or counseling patient: Coding Level of Care Code 71891 Subseq Hosp Care Lvl 3 Diagnoses Syncope R55 Syncope type: unspecified Dysarthria R47.1 Parkinson's disease G20 Hypothyroidism E03.9 PAF (paroxysmal atrial fibrillation) I48.0 Neurogenic bladder N31.9 Depression F32.9 Chronic constipation K59.09 (1) Syncope Syncope type: unspecified Qualified Code(s): R55 - Syncope and collapse
[2021-09-18] MEDS: DONEPEZIL HCL 10 MG TAB PO SCH (20:35)
[2021-09-18] MEDS: ESCITALOPRAM OXALATE 10 MG TAB PO SCH (20:35)
[2021-09-18] MEDS: clonazePAM 1 MG TAB PO SCH (20:38)
[2021-09-19] MEDS: LEVOTHYROXINE SODIUM 50 MCG TABLET PO SCH (06:13)
[2021-09-19] MEDS: ATORVASTATIN 20 MG TAB PO SCH (07:46)
[2021-09-19] MEDS: MIDODRINE HCL 2.5 MG TAB PO SCH ×3 (07:46→17:23)
[2021-09-19] MEDS: CARBIDOPA/LEVODOPA 25-250 1 EA TAB PO SCH ×2 (07:47→14:16)
[2021-09-19] MEDS: FLUDROCORTISONE ACETATE 0.1 MG TAB PO SCH (07:47)
[2021-09-19] MEDS: SENNA 8.6 MG TAB PO SCH (07:47)
[2021-09-19] MEDS: POLYETHYLENE (MIRALAX) 17 GM PACK PO PRN (07:47)
[2021-09-19] MEDS: POTASSIUM CHLORIDE 10 MEQ TABCR PO SCH ×2 (07:49→17:23)
[2021-09-19] MEDS ORDERED: bisacodyL 5 MG TABEC PO ONE (11:58)
[2021-09-19] MEDS ORDERED: INSULIN ASPART PER UNIT ONE (12:22)
[2021-09-19] MEDS ORDERED: HYDROCORTISONE HC 2.5% CRM 30GM TUBE EXT SCH (14:00)
[2021-09-19 15:03] VITALS: TEMP 97.7; O2SAT 100
--- NOTE | 2021-09-19 17:24 | Discharge Summary ---
Date of Service date of admission - September 16, 2021 date of discharge - September 19, 2021 Admission HPI Per Admitting Provider Andrew Barba is a 81yo male with history of Parkinson's disease on Carbidopa- Levodopa presenting with speech disturbance, gait instability and worsening confusion. Patient reports concern for cognitive decline starting last week. He had some worsening gait and fell several times last week secondary to loss of balance. His contacted his Neurologist/Movement Disorder specialist from [facility] with these concerns and patient is scheduled to see them in October. Patient sleeps in a hospital bed on the first floor of the home. Last night patient's noted that he was breathing strangely - rapid, shallow breathing. He was also in a cold sweat. Patient had some unintelligible speech as well as echolalia - repeating "wisteria, wisterium, wisteria, wisterium" over and over again. Patient also laughing inappropriately while speaking about a friend that . thinks he may have been having some visual hallucinations as well as auditory hallucinations. Patient's monitored his symptoms throughout the day. She checked his vital signs and he was found to be hypertensive at 190-211 / 95-109. She did not administer his Florinef this evening but gave him his Metoprolol. was assisting the patient in the bathroom tonight and he had a syncopal event and hit his head. No seizure activity reported. Patient is mainly complaining of slurred speech and word-finding difficulty at this time as well as a slight headache. He denies fever, chills, cough, SOB, abdominal pain, nausea, vomiting, diarrhea or constipation. Denies numbness, weakness. No additional complaints at this time. ER Course: NSS x 500mL Principal Diagnosis 1. mental status changes and speech disturbance - likely due to Parkinson's Disease 2. syncope - secondary to severe orthostatic hypotension 3. 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 Discharge Exam gen - NAD; sentence structure/speech improved from admission; no word finding issues; affect more full mouth - MMM neck - no JVD heart - RRR, s1 s2, no murmur lungs - CTA b/l abd - soft NT ND BS+ ext - no edema, pulses 2+ b/l psych - oriented x 3 Discharge Data Allergies Allergy/AdvReac Type Severity Reaction Status Date / Time No Known Allergies Allergy Verified 09/16/21 21:44 Consultations [facility] [place] Psychiatry Physical Therapy 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 Therapy Ordered Studies Head CT 09/16/21 19:56 CT head/brain wo con CLINICAL HISTORY: 81 years-old Male with fall. Acute head injury status post fall TECHNIQUE: Multiple axial CT images of the head were obtained without contrast. A dose lowering technique was utilized adhering to the principles of ALARA. CT DOSE: 884.08 mGy.cm COMPARISON: Brain MRI of same day, Head CT 01/22/2021 FINDINGS: No acute intracranial hemorrhage, midline shift, intracranial mass, hydrocephalus, territorial ischemia or abnormal extra-axial collection. Age- related involutional changes. White matter hypodensities suggestive of chronic microvascular ischemic disease. The calvarium is intact. Minimal mucosal thickening of the ethmoid air cells. IMPRESSION: No acute intracranial abnormality. ACT 112: Negative or not required by law. The above report was generated using voice recognition software. It may contain grammatical, syntax or spelling errors. Electronically signed by: Nilton Ryan M.D. 09/17/2021 6:49 AM Head CTA 09/16/21 21:05 CT angio neck with con, CT angio head w con CLINICAL HISTORY: 81 years-old Male with difficulty speaking, fall, syncope. Acute strokelike symptoms with difficulty speaking. COMPARISON STUDY: Brain MRI of same day TECHNIQUE: Following the IV administration of 117 mL of Optiray, CT angiogram of the head and neck was performed from the aortic arch to the skull apex. Images are reviewed in the axial, sagittal, and coronal planes. 3-D MIPS images are created and assessed. IV contrast was administered without complication. All measurements were calculated based on NASCET criteria. A dose lowering technique was utilized adhering to the principles of ALARA. CT DOSE: 579.87 mGy.cm FINDINGS: There is atherosclerotic plaque of the thoracic aortic arch. Patency of the innominate and imaged subclavian arteries. The common carotid arteries are patent. Moderate atherosclerotic plaque of the carotid bulbs and proximal internal carotid arteries results in less than 50% stenosis bilaterally. The middle and anterior cerebral arteries are patent. Diminutive left A1 segment is likely developmental. Dominant left vertebral artery. The vertebral arteries are codominant and widely patent. The basilar and posterior cerebral arteries are also patent. The cerebral venous sinuses are patent. There is no abnormal intracranial enhancement. There is no pneumothorax. Unremarkable thyroid. Soft tissues are within normal limits. Degenerative changes of the cervical spine. IMPRESSION: 1. No aneurysm, dissection, high-grade stenosis or arterial occlusion. 2. Moderate atherosclerotic plaque of the carotid bulbs results in less than 50% stenosis bilaterally. ACT 112: Negative or not required by law. The above report was generated using voice recognition software. It may contain grammatical, syntax or spelling errors. Electronically signed by: Nilton Ryan M.D. 09/17/2021 7:[address] 09/16/21 21:05 CT lumbar spine wo con HISTORY: 81 years-old Male fall acute back pain status post fall COMPARISON: CT abdomen and pelvis 04/13/2021 TECHNIQUE: Multiple axial CT images of the lumbar spine were obtained without the use of IV contrast. A dose lowering technique was used consistent with the principals of ALARA. FINDINGS: Multilevel intervertebral disc space narrowing, moderate at L3-L4. L3-L4 and L4- L5 vacuum disc phenomena. There is mild multilevel spondylitic spurring with small posterior disc osteophyte complex formations. Moderate to severe multilevel facet arthrosis. There is no acute fracture or subluxation. Moderate degeneration with partial bony fusion of the SI joints. No acute sacral insufficiency fracture. Unchanged appearance of the left L1 transverse process suggestive of a healed chronic fracture. No high-grade central canal or neural foraminal narrowing. There is at least mild multilevel central canal or neural foraminal stenosis. No paravertebral edema. Trace right pleural effusion. No acute intra-abdominal abnormality identified. IMPRESSION: No acute fracture or subluxation. ACT 112: Negative or not required by law. The above report was generated using voice recognition software. It may contain grammatical, syntax or spelling errors. Electronically signed by: Nilton Ryan M.D. 09/17/2021 8:35 AM Neck CTA 09/16/21 21:05 CT angio neck with con, CT angio head w con CLINICAL HISTORY: 81 years-old Male with difficulty speaking, fall, syncope. Acute strokelike symptoms with difficulty speaking. COMPARISON STUDY: Brain MRI of same day TECHNIQUE: Following the IV administration of 117 mL of Optiray, CT angiogram of the head and neck was performed from the aortic arch to the skull apex. Images are reviewed in the axial, sagittal, and coronal planes. 3-D MIPS images are created and assessed. IV contrast was administered without complication. All measurements were calculated based on NASCET criteria. A dose lowering technique was utilized adhering to the principles of ALARA. CT DOSE: 579.87 mGy.cm FINDINGS: There is atherosclerotic plaque of the thoracic aortic arch. Patency of the innominate and imaged subclavian arteries. The common carotid arteries are patent. Moderate atherosclerotic plaque of the carotid bulbs and proximal internal carotid arteries results in less than 50% stenosis bilaterally. The m iddle and anterior cerebral arteries are patent. Diminutive left A1 segment is likely developmental. Dominant left vertebral artery. The vertebral arteries are codominant and widely patent. The basilar and posterior cerebral arteries are also patent. The cerebral venous sinuses are patent. There is no abnormal intracranial enhancement. There is no pneumothorax. Unremarkable thyroid. Soft tissues are within normal limits. Degenerative changes of the cervical spine. IMPRESSION: 1. No aneurysm, dissection, high-grade stenosis or arterial occlusion. 2. Moderate atherosclerotic plaque of the carotid bulbs results in less than 50% stenosis bilaterally. ACT 112: Negative or not required by law. The above report was generated using voice recognition software. It may contain grammatical, syntax or spelling errors. Electronically signed by: Nilton Ryan M.D. 09/17/2021 7:16 AM Brain MRI 09/17/21 00:03 MR brain wo/w con HISTORY: 81 years-old Male speech difficulty acutely altered mental status with aphasia and elevated blood pressure COMPARISON: CT head, CTA head and neck studies of same day, brain MRI 06/30/2019. TECHNIQUE: Multiplanar multisequence MRI of the brain was obtained both with and without the use of 9 cc Gadavist FINDINGS: The stock mover localizer images demonstrate no gross extracranial abnormality. No restricted diffusion to suggest acute or subacute infarct. Midline structures appear unremarkable. No acute intracranial hemorrhage, midline shift, abnormal extra-axial collection, hydrocephalus or intracranial mass. There is no pathologic blooming artifact. Age-related involutional changes. Moderate T2/FLAIR hyperintense foci are noted throughout the white matter. There is no abnormal intra-axial or extra-axial enhancement. Cerebral venous sinuses and major arterial flow voids appear patent. Trace mastoid effusions. Mild mucosal thickening of the paranasal sinuses. The skull, orbits and soft tissues are unremarkable. There is a 2.8 x 2.5 x 0.3 cm subcutaneous lipoma of the superior frontal scalp near the vertex. IMPRESSION: 1. No acute intracranial abnormality. No acute or subacute infarct. 2. No abnormal enhancement. 3. Age-related involutional changes with chronic microvascular ischemic disease. ACT 112: Negative or not required by law. The above report was generated using voice recognition software. It may contain grammatical, syntax or spelling errors. Electronically signed by: Nilton Ryan M.D. 09/17/2021 7:26 AM KUB X-Ray 09/17/21 12:06 KUB HISTORY: ?constipation? renal stones? COMPARISON: KUB 05/11/2021. FINDINGS: The bowel gas pattern is unremarkable. There are no dilated loops of small bowel to suggest an obstruction. No renal calculi. No ureteral calculi. No pneumoperitoneum or pneumatosis. Small to moderate amount well-formed stool within the colon and rectum. This has slightly improved. Moderate degenerative changes within the bilateral hips. IMPRESSION: Small to moderate amount of well-formed stool seen throughout the colon. This has slightly improved in the interval. ACT 112: Negative or not required by law. Electronically signed by: Micha Cloud M.D. 09/17/2021 1:10 PM Hospital Course (1) Syncope: 2nd severe orthostasis from his Parkinson's Disease. The patient had a documented 70-point drop in Systolic BP on 09/17/21 despite his usual florinef BID. Midodrine 2.5mg TID added on 09/17/21. This helped, but he still had orthostatic drops of >50 points. Thus, the midodrine again was titrated to 5mg TID on 09/19/21 with improvement to about a 40 point Systolic BP drop with standing. He had minimal dizziness once the midodrine was titrated to 5mg TID. In addition, after Dr Wes Alvarado saw him in consult, the patient's Sinemet dose was reduced from QID to TID dosing. Dr Alvarado was concerned that the Sinemet could also be contributing to his orthostasis. Finally, despite lowering his metoprolol, the patient's orthostasis was still problematic thus it was completely discontinued. In addition to TID midoderine and BID florinef he could consider custom-fit compression stockings as an outpatient as an adjunct treatment. The patient and his were counseled that his sitting and standing BPs were most important for determining optimal BP management. Overtreatment of supine readings can lend itself to worsening of the orthostasis problem. (2) Parkinson's disease with neurogenic orthostatic hypotension: As above in #1. (3) Dysarthria: Patient and his reported difficulty with word finding as well as slurred speech at home. Question of visual and auditory hallucinations at home as well. MRI brain was negative for acute or subacute CVA. No infectious etiology or metabolic cause was found while here. Sed rate, crp, procal, B12 level, TSH -- all neg/normal. KUB x-ray - mild constipation but no impaction, no renal stones. Patient was seen by Dr Wes Alvarado - [facility] Neurology. It was felt that much of his presenting symptoms could be from progressive PD and PD-dementia. 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 Again the only change in medication was the dose reduction of Sinemet from QID to TID dosing. See above in #1. He will need close f/u with his neurologist at [facility]. (4) Parkinson's disease: Patient follows with Neurology/Movement Disorder clinic at [facility]. He is scheduled to see them later this winter. Sees [facility] neurology locally. Dosage of Carbidopa/levodopa was increased in July 2021; during this visit the dose was reduced back to TID dosing. He will continue Aricept 10mg po qHS. Continue Clonazepam 2mg po qHS - this is a chronic med for him for many years per . Psych saw patient in consult - expressed concerns that the clonazepam could be giving him side effects. I discussed this concern with his - they will address with his outpatient providers. The clonazepam is for REM sleep disorder. No changes in lexapro advised at this time. PT/OT saw in consult - cleared for home with his . (5) Hypothyroidism: Chronic. TSH within normal limits at 1.11 Continue Synthroid 50mcg po daily (6) PAF (paroxysmal atrial fibrillation): No anticoagulation due to increased fall risk. No episodes of PAF while here. Metoprolol was stopped due to the severity of #1 above. (7) Neurogenic bladder: Cont condom catheter HS. Also with history of BPH. Poor candidate for alpha blockers for BPH due to #1, #2 above. (8) Depression: Psych consult completed. Consider weaning of clonazepam due to concerns of side effects. See discussion above. (9) Chronic constipation: KUB x-ray with significant constipation. Required fleets enema x 1 while here. Maintenance meds to be continued at home. (10) Hemorrhoids: Anusol cream TID for 5-7 days. Treat constipation. Total Time Total Time Spent Total Time Spent (In Minutes): 50 Discharge Plan Discharge Items Patient Disposition: Home - Self-Care Reason For Visit: SLURRED SPEECH, SYNCOPE (Passing Out Spell) Discharge Diagnosis: 1. Slurry speech, word-finding difficulties, repetition of words, etc - exact cause uncertain, but improved. Possibly due to progressive Parkinson's. No stroke seen on MRI brain. No infections found. No abnormal electrolyte levels found. Nutritional labs normal (vit b12, etc). 2. Syncope (passing out episode) - due to severe autonomic insufficiency/orthostatic hypotension from your Parkinson's. No further spells. 3. Constipation with hemorrhoid. 4. History of a.fib - none seen while here. Activity: Resume your previous activity Non-emergency contact: Primary Care Provider and Neurologist Call non-emergency contact if: you have any medication questions, your symptoms worsen and you have a fever Follow-up/Referrals: Wes Alvarado MD [Physician] - (2-3 weeks for parkinson's follow-up) Jon Bal Jr, [Primary Care Provider] - (see within 1 week) Diet: Regular Addtl Attending Provider Instructions: Mr Barba, You were treated for the problems listed above in "discharge diagnoses." When you came to [facility] you had a host of symptoms including speech troubles (repetition of words, word-finding difficulty, etc), slurry speech, and a passing out spell. We performed a series of tests including blood work, checking for infections, and MRI brain. We did not find any stroke, urine infection, pneumonia, COVID infection, electrolyte disturbance, or other specific cause of the speech issues. Your symptoms did improve while here. Dr Alvarado from [facility] Neurology saw you in consult and felt that some of your recent symptoms could be from your Parkinson's condition itself, medication side effect, and/or other causes. Your autonomic insufficiency/orthostatic hypotension - that is, your blood pressure drops when you stand - was the cause of your passing out spell. Your orthostatic hypotension is due to Parkinson's. This is a very difficult condition to treat, and can lead to large drops in blood pressure and wide swings in your blood pressure day to day and hour to hour. We added a medication called "midodrine" to your fludrocortisone to prevent the large drops in blood pressure. You initially had a 70-point drop in blood pressure, improving to about 40 points with the midodrine. It is often very difficult if not impossible to completely eliminate the orthostasis. Dr Alvarado also suggested lowering your sinemet dosing as this can contribute to this problem as well. Finally, the psychiatrist saw you in consult and asks that you speak with your neurologists about possibly cutting back the dose of clonazepam. This could contribute to heightened fall risk and other issues. Recommendations - 1. orthostatic hypotension - * start midodrine 5mg three times daily starting tomorrow morning; take about 8am, 12noon, and 5pm each day * continue your fludrocortisone as previous * consider use of compression stockings; you can get custom-fit ones which will be tailored to your legs; please ask Dr Bal about where in the community you can be fitted for these * recommend checking blood pressures daily; sitting and standing readings will be the most important readings to determine whether the orthostatic condition is stable or worsening 2. for Parkinson's - * please reduce your Sinemet from 4 times daily to 3 times daily 3. for your hemorrhoid - * anusol/proctosol - apply 3-4 times each day for 5-7 days to the hemorrhoid(s) * treat the constipation as you are doing 4. for constipation - * senna twice daily * miralax once or twice daily * fleets enemas as needed * prune juice and/or pear juice as needed/desired 5. please HOLD your metoprolol blood pressure pill for now. Depending on what your readings are over time you may or may not need this. Your sitting and standing blood pressure readings are most important when determining your medication regimen for your blood pressure. Follow-up - see separate section Return to [facility] if - * you have severe dizziness despite taking the above medications and following the above directions * you have recurrent passing out spells * you have fevers over 100 degrees * any other concerns It was our pleasure caring for you at [facility]! Dr Shin Pending Studies at Discharge: No Stand-Alone Forms: My [facility], Smoking Cessation Medications and DC Order Prescriptions: New hydrocortisone [Proctosol HC] 2.5 % Cream With Perineal Applicator 1 applic EXT TID Qty: 30 RF: 1 midodrine 5 mg tablet 5 mg PO TID Qty: 90 RF: 5 Continued cholecalciferol (vitamin D3) [Vitamin D3] 2,000 unit capsule 2,000 unit PO HS RF: 0 clonazepam 1 mg tablet 2 mg PO HS Qty: 45 RF: 0 donepezil [Aricept] 10 mg tablet 10 mg PO HS RF: 0 atorvastatin [Lipitor] 20 mg tablet 20 mg PO QAM RF: 0 multivitamin [Daily Multi-Vitamin] Tablet 1 tab PO PM RF: 0 potassium chloride 10 mEq capsule, extended release 10 meq PO BID RF: 0 levothyroxine [Synthroid] 50 mcg tablet 50 mcg PO QAM RF: 0 escitalopram oxalate [Lexapro] 10 mg tablet 10 mg PO HS RF: 0 melatonin 10 mg Tablet 10 mg PO HS RF: 0 sennosides [Senokot] 8.6 mg Tablet 17.2 mg PO BID RF: 0 fludrocortisone 0.1 mg tablet 0.1 mg PO BID RF: 0 Changed carbidopa-levodopa 25-250 mg tablet 1 tab PO TID Qty: 0 RF: 0 polyethylene glycol 3350 [Miralax] 17 gram/dose powder 8.5 gm PO DAILY Qty: 0 RF: 0 Discontinued metoprolol succinate [Toprol XL] 50 mg tablet extended release 24 hr 50 mg PO QAM RF: 0 Discharge Orders: Discharge Order (Routine); Ordered 09/19/21 Ordered By: Endy Chin/Other Patient Handouts: Orthostatic Hypotension Admission Data Admit Date/Time: 09/16/21 22:02 Attending Provider: Endy Shin Admit Provider: Kiara Stokes Primary Care Provider: Jon Bal Jr Other Providers: Kiara Stokes ; Wes Alvarado ; Rosalina Alvarado ; Swathi Rock ; Mery Gee ; Jhonny Urena Other Interventions: Discharge Summary Assessment (RN) Last Done: 09/19/21 17:29 Coding Level of Care Code D/C DAY MANAGEMENT >30 MINS Diagnoses Syncope R55 Syncope type: unspecified Dysarthria R47.1 Parkinson's disease G20 Hypothyroidism E03.9 PAF (paroxysmal atrial fibrillation) I48.0 Neurogenic bladder N31.9 Depression F32.9 Chronic constipation K59.09 Parkinson's disease with neurogenic orthostatic hypotension G90.3 Hemorrhoids K64.9
[2021-09-19 17:31] VITALS: BP 172/77; PULSE 68
== END 2021-09-19 18:15 | disposition home or self-care (01) | DRG 57 ==
LOC: ED 18:19 → SUATTDRO 22:02 → EDINP 22:02 → 2N 09-17 11:00

== ENCOUNTER 2022-11-21 12:34 | Inpatient (IN) ==
--- NOTE | 2022-11-21 13:21 | XRay Report ---
XR chest 1V portable CLINICAL HISTORY: Sepsis TECHNIQUE: Single frontal radiograph of the chest was obtained. Comparison: Comparison is made to chest radiograph 11/13/2022 FINDINGS: No lines and tubes are seen. Calcified aortic knob is seen. Left retrocardiac opacity is seen. No miguel dence of pleural effusion or pneumothorax. IMPRESSION: Left retrocardiac opacity may represent atelectasis, pneumonia, and/or aspiration. ACT 112: Negative or not required by law. Electronically signed by: Philip Hinton M.D. 11/21/2022 1:20 PM
[2022-11-21 13:26] LABS: Basophils # (auto) 0.04 K/uL (0-0.2); Basophils % (auto) 0.2 %; Eosinophils # (auto) 0.02 K/uL (0-0.50); Eosinophils % (auto) 0.1 %; Hematocrit (blood only) 38.1 % (42.0-52.0); Hemoglobin 12.9 g/dl (14.0-18.0); Immature Granulocytes # (auto) 0.13 K/uL (0.01-0.20); Immature Granulocytes % (auto) 0.7 %; Lymphocytes # (auto) 0.73 K/uL (1.2-3.4); Lymphocytes % (auto) 3.8 %; Mean Corpuscular Hemoglobin 31.2 pg (25.0-34.0); Mean Corpuscular Hgb Conc 33.9 g/dL (32.0-36.0); Mean Corpuscular Volume 92.3 fL (80.0-100.0); Mean Platelet Volume 10.9 fL (9.4-12.4); Monocytes # (auto) 1.01 K/uL (0.11-0.59); Monocytes % (auto) 5.2 %; Neutrophils # (auto) 17.51 K/uL (1.40-6.50); Platelet Count 202 K/uL (130-400); RDW Coefficient of Variation 12.6 % (11.5-14.5); RDW Standard Deviation 42.4 fL (36.4-46.3); Red Blood Count 4.13 M/uL (4.70-6.10); White Blood Count 19.44 K/ul (4.8-10.8)
[2022-11-21] MEDS: SODIUM CHLORIDE 0.9% 1000ML 1,000 ML IV SCH ×2 (13:36→14:23)
[2022-11-21 13:53] LABS: Appearance Urine Turbid (Clear); Bacteria Urine Automated 4+ (Negative); Bilirubin Urine Negative (Negative); Blood Urine 3+ (Negative); Color Urine Orange; Glucose Urine UA Negative (Negative); Ketones Urine Trace (Negative); Leukocyte Esterase Urine 3+ (Negative); Nitrite Urine Positive (Negative); Protein Urine 2+ (Negative); RBC Urine Automated >30 /hpf (0-4); Specific Gravity Urine 1.019 (1.000-1.030); Urobilinogen Urine Negative (Negative); WBC Urine Automated >30 /hpf (0-5)
[2022-11-21] MEDS ORDERED: CEFEPIME 2,000 MG/20 ML VIAL IV STA (14:05)
[2022-11-21 14:08] LABS: Albumin Level 3.9 gm/dl (3.4-5.0); BUN Creatinine Ratio 19.6 (10-20); Bilirubin Direct 0.2 mg/dl (0-0.2); Bilirubin,Total 1.3 mg/dl (0.2-1.0); Calcium 8.9 mg/dl (8.5-10.1); Creatinine Clr Calc Pharmacy 66.7 ml/min; Est GFR (African American) 85.1 ml/min; Est GFR (Non-African American) 73.4 ml/min; Magnesium 1.7 mg/dl (1.7-2.4); Potassium 3.5 mmol/L (3.5-5.1); Total Protein 6.6 gm/dl (6.0-8.3)
[2022-11-21] MEDS ORDERED: SODIUM CHLORIDE 0.9% 1000ML 500 ML IV ONE (14:12)
[2022-11-21 14:13] LABS: Troponin I High Sensitivity 31.3 pg/ml (0-20)
[2022-11-21] MEDS ORDERED: VANCOMYCIN HCL 1,500 MG in SODIUM CHLORIDE 0.9% 500 ML IV ONE (14:14)
[2022-11-21] MEDS ORDERED: VANCOMYCIN CONSULT ACTIVE PRN (14:14)
[2022-11-21] MEDS ORDERED: DAPTOmycin 475 MG in SYRINGE 0 ML IV SCH (14:15)
--- NOTE | 2022-11-21 14:38 | Electrocardiogram Report ---
Test Reason : Blood Pressure : / mmHG Vent. Rate : 082 BPM Atrial Rate : 082 BPM P-R Int : 200 ms QRS Dur : 092 ms QT Int : 410 ms P-R-T Axes : 105 -05 027 degrees QTc Int : 479 ms Poor data quality, interpretation may be adversely affected Normal sinus rhythm with sinus arrhythmia Normal ECG When compared with ECG of 13-NOV-2022 17:08, No significant change was found Confirmed by Gucci Mcelroy ([id number]) on 11/21/2022 2:37:55 PM Referred By: Confirmed By:Gucci Mcelroy
--- NOTE | 2022-11-21 14:51 | History & Physical Report ---
Date of Service November 21, 2022 Assessment & Plan (1) Sepsis: Plan: -Admit to med/tele -The patient is currently afebrile, hemodynamically stable, and stable on RA -Patient initial came to the ED with a fever of 101.8, hypotension, AMS and significant leukocytosis -S/P 2L NSS sepsis bolus and has responded well -Was given one dose of cefepime, daptomycin, and vancomycin by the ED due to UTI and possible pneumonia on CXR -At this time I do not believe that the patient has a bacterial pneumonia as his procal is < 0.50, I do not see a focal consolidation on CXR, his lungs are clear, and he is stable on RA -Previous urine cultures have grown e.coli resistant to bactrim and Ampicillin, will continue with Ceftriaxone for now -Monitor urine and blood cultures, tailor abx to results -Will continue light IV fluids with LR at 80 mL/hr x 2 bags -CT of the abd/pelvis WO con was ordered by the ED, will follow up when resulted, if any concerns with urinary tract will consult Urology -Will monitor for signs of urinary retention, if positive may need to transition to straight cath -BL SCDs and SuB-Q lovenox for DVT PPX -AM CBC, CMP, MAG (2) Altered mental status: Plan: -Likely due to his acute illness exacerbating his baseline memory issues -Patient is without acute neuro defects and is improving clinically per his -Conitnue to monitor mental status with adequate treatment (3) Elevated troponin: Plan: -Initial high sensitivity trop elevated at 31 -Patient is asymptomatic and without acute ECG changes -Likely due to demand from his acute illness -Will repeat another high sen trop now and continue to monitor on tele (4) Parkinson's disease with neurogenic orthostatic hypotension: Plan: -Stable -Patient's has mentioned continue issues with swallowing pills and food -Will consult speech therapy and order bedside dysphagia screen -Continue Carbidopa-Levodopa and Donepezil -Continue Fludrocortisone and and midodrine -Fall precautions ordered (5) Depression: Plan: -Continue venlafaxine (6) PAF (paroxysmal atrial fibrillation): Plan: -Stable -Not on anticoagulation due to recurrent falls -Continue to monitor on tele Plan The patient was discussed with Dr. Burris at the time of the admission History of Present Illness Chief Complaint: Fevers, AMS Primary Care Provider: Philip Tate MD Andrew is an 82 year old male with a PMH significant for Parkinsons disease with dementia, orthostatic hypotension, paroxysmal afib not on anticoagulation due to frequent falls, hypothyroidism, neurogenic bladder (unable to use alpha blockers due to significant orthostatic hypotension), and chronic constipation who presented to the [facility] ED on 11/21/22 with complaints of fevers, foul smelling urine, and increased confusion. In the ED the patient was found to be afebrile, initially hypotensive at 75/45, and stable on RA. Labs were remarkable for a leukocytosis of 19 with left shift of 17, stable Hgb and platelets, stable Cr of 0.97 (baseline appears to be 0.8-0.9), stable electrolytes, glucose of 116, total bili of 1.3 with direct bili of 0.2, otherwise stable LFTs, initial high sensitivity trop of 31, UA showing turbid urine with 2+ protein, trace ketones, 3+ blood, nitrite positive, 3+ leukocyte esterase, > 30 WBCs and 4+ bacteria, and covid negative. Procal was in process at the time of the admission. Chest xray was read as Left retrocardiac opacity may represent atelectasis, pneumonia, and/or aspiration.. Prior to admission the patient was given 2L NSS, a dose of cefepime, a dose of Daptomycin and a dose of Vancomycin. At the time of the exam the patient was resting comfortably in bed in no acute distress with his sitting bedside, history was obtained from both. His , who is his POA and primary caregiver, states that they currently sleep i separate bedrooms as the patient requires a hospital bed. As of last night at approximately 10 pm when she put him to bed he was at his baseline mental status. She states that at his baseline the patient is usually alert, knows his name, close contacts, but will have issues with short term memory, normally he is able to carry a coherent conversation. This am around 10 am when his went to wake him the patient appeared more confused than baseline. She took his temperature and found it to be 101.8 F, she also noticed that his urine smelled foul as well. She states that he had previously been placed on low dose Bactrim for UTI PPX but was taken off and switched to Keflex due to resistance to Bactrim. He was evaluated by Urology who took him off Keflex and switched him to methenamine hippurate. Since started his new medication his has noticed his bowel movements have been very soft but not diarrhea and has not noticed melena or bloody BM's. Since coming to the ED and receiving his initial treatment his thinks his mental status is improving. The patient denies headache, chest pain, SOB, abdominal pain, nausea, and vomiting. His states that the patient has been experiencing increased difficulty swallowing pills and solid food, he has had a non-productive cough over the past few weeks. When asked about possible bed sores or ulcers his states that he previously had a small bed sore on his right buttocks bu this has resoled. We discussed code status, the patient has a living will and his is his POA; the patient is a DNR/DNI. Please refer to Dr. Burris's attestation for any changes to the treatment plan Allergies Allergy/AdvReac Type Severity Reaction Status Date / Time No Known Allergies Allergy Verified 11/13/22 19:59 Home Medications Medication Instructions Recorded Confirmed Type atorvastatin 20 mg tablet (Lipitor) 20 mg PO QAM 05/11/19 11/21/22 History cholecalciferol (vitamin D3) 50 2,000 unit PO TID 05/11/19 11/21/22 History mcg (2,000 unit) capsule (Vitamin D3) clonazepam 1 mg tablet 2 mg PO HS #45 tabs 05/11/19 11/21/22 History donepezil 10 mg tablet (Aricept) 10 mg PO HS 05/11/19 11/21/22 History levothyroxine 50 mcg tablet 50 mcg PO QAM 06/30/19 11/21/22 History (Synthroid) melatonin 10 mg tablet 10 mg PO HS 06/30/19 11/21/22 History multivitamin (Daily Multi-Vitamin 1 tab PO PM 06/30/19 11/21/22 History tablet) fludrocortisone 0.1 mg tablet 0.2 mg PO QAM 09/16/21 11/21/22 History sennosides 8.6 mg tablet (Senokot) 17.2 mg PO BID PRN Constipation 09/16/21 11/21/22 History polyethylene glycol 3350 17 8.5 gm PO DAILY #0 grams 09/19/21 11/21/22 Rx gram/dose oral powder (Miralax) midodrine 5 mg tablet 2.5 mg PO TID 01/22/22 11/21/22 History carbidopa 25 mg-levodopa 100 mg 2 tab PO QID 09/27/22 11/21/22 History tablet hydrocortisone 2.5 % topical cream 1 applic EXT TID PRN Hemorrhoids 09/27/22 11/21/22 History with perineal applicator (Proctosol HC) ketoconazole 2 % topical cream 1 applic topical BID PRN NEEDED 09/27/22 11/21/22 History venlafaxine 37.5 mg 37.5 mg PO DAILY 09/27/22 11/21/22 History capsule,extended release 24 hr methenamine hippurate 1 gram tablet 1 g PO Q12H #60 tabs 10/25/22 11/21/22 Rx Past Med/Surg History Medical History (Updated 11/22/22 @ 08:49 by Rylee Edmond DO) Adjustment disorder 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 Chronic constipation Closed head injury Depression Hypotension Hypothyroidism Lumbar pain Lumbar post-laminectomy syndrome Prior left L3-4 hemilaminectomy Memory loss Neurogenic bladder PAF (paroxysmal atrial fibrillation) Parkinson's disease Parkinson's disease Sacral insufficiency fracture Spinal stenosis of lumbar region Syncope Uncontrolled REM sleep behavior disorder Urge incontinence of urine Surgical History History of back surgery History of tonsillectomy 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) Family History Unknown Alzheimer disease Sister Diabetes Cancer Other Family history non-contributory Social History Smoking Status: Never smoker Tobacco Type: Cigarettes Second Hand Exposure: No; Do You Dip or Chew Tobacco: No; Tobacco Cessation Education Requested by Patient: No Hx Alcohol Use: No Hx Substance Use: No Preferred Language: Bahraini Communication Ability: Effective Insecticide Mixer Required: No Beliefs That Will Affect Care: None marital status: Current Living Situation: Spouse current occupational status: retired Other Information That Helps Us Care for You: No Feels Safe at Home: Yes Safety Concerns: Feels Safe At This Time Assistive Devices: Glasses Review of Systems Review of Systems: Denies current chills, headache, changes in vision, hearing, taste, and smell, chest pain, SOB, abdominal pain, nausea, vomiting, diarrhea, hematemesis, melena, and recent falls. All systems have been reviewed and are otherwise negative. Physical Exam Physical Exam: Physical Exam: General: In no acute distress, stated age, good hygiene, non-toxic appearing HEENT: Normocephalic, atraumatic, no scleral icterus, pupils around round, symmetrical, and reactive to light, moist mucus membranes, trachea midline, no thyromegaly Chest/Pulm: No respiratory distress, symmetrical chest expansion, clear breath sounds throughout Cardiac: RRR, no murmurs noted Abdomen: Negative for ascites and bruising, normoactive bowel sounds, soft, non-tender to palpation throughout : Patient with condom cath in place, currently draining clear, yellow urine Musculoskeletal: Symmetrical and without signs of acute trauma, upper and lower extremities with full ROM, no atrophy, spasticity, or flaccidity Extremities: Radial, dorsalis pedis, and posterior tibial pulses are intact and symmetrical, no edema noted in the BL LE's Skin: Warm, dry, no rashes , lesions, or scars noted Neuro: Alert and oriented to person and place but not to month or year, no focal defects, CN II-XII tested and intact, no tremors noted Psych: No acute distress, calm and cooperative during the exam Results & Data Results & Data ([facility]) Vital Signs (Past 12 Hours) Vital Signs Temp Pulse Pulse Resp BP BP Pulse Ox 11/21/22 13:10 37.4 C 85 18 121/52 L 96 11/21/22 13:09 96 11/21/22 12:56 89 11/21/22 12:42 36.7 C 94 H 18 75/45 L 90 O2 Del Method 11/21/22 13:10 Room Air 11/21/22 13:09 Room Air 11/21/22 12:56 11/21/22 12:42 Room Air Laboratory Results Abnormal lab results 11/21/22 11/21/22 11/21/22 Range/Units 13:00 13:00 13:25 WBC 19.44 H (4.8-10.8) K/ul RBC 4.13 L (4.70-6.10) M/uL Hgb 12.9 L (14.0-18.0) g/dl Hct 38.1 L (42.0-52.0) % Neut # (Auto) 17.51 H (1.40-6.50) K/uL Lymph # (Auto) 0.73 L (1.2-3.4) K/uL Long # (Auto) 1.01 H (0.11-0.59) K/uL Carbon Dioxide 36 H (21-32) mmol/L Glucose 116 H (70-99(Fasting)) mg/dl Total Bilirubin 1.3 H (0.2-1.0) mg/dl AST 10 L (13-39) U/L Troponin I High Sens 31.3 H (0-20) pg/ml Urine Appearance Turbid A (Clear) Urine Protein 2+ H (Negative) Urine Ketones Trace H (Negative) Urine Blood 3+ H (Negative) Urine Nitrite Positive A (Negative) Ur Leukocyte Esterase 3+ H (Negative) Urine WBC (Auto) >30 H (0-5) /hpf Urine RBC (Auto) >30 H (0-4) /hpf U Hyaline Cast (Auto) 5-10 H (0-5) /lpf U Epithel Cells (Auto) 10-20 H (0-5) /lpf Urine Bacteria (Auto) 4+ H (Negative) Diagnostic Findings Chest X-Ray 11/21/22 12:52 XR chest 1V portable CLINICAL HISTORY: Sepsis TECHNIQUE: Single frontal radiograph of the chest was obtained. Comparison: Comparison is made to chest radiograph 11/13/2022 FINDINGS: No lines and tubes are seen. Calcified aortic knob is seen. Left retrocardiac opacity is seen. No evidence of pleural effusion or pneumothorax. IMPRESSION: Left retrocardiac opacity may represent atelectasis, pneumonia, and/or aspiration. ACT 112: Negative or not required by law. Electronically signed by: Philip Hinton M.D. 11/21/2022 1:20 PM ECG Additional Comments: Poor data quality, interpretation may be adversely affected Normal sinus rhythm with sinus arrhythmia Normal ECG When compared with ECG of 13-NOV-2022 17:08, No significant change was found Confirmed by Gucci Mcelroy ([id number]) on 11/21/2022 2:37:55 PM Code Status & VTE Plan Code Status DNI/DNI VTE Prophylaxis Plan VTE Prophylaxis will be ordered: Yes Supervising Physician Co-Signing Physician Notes I personally saw and examined the patient. I verified all esteves points and agree with Aquiles Christy PA-C with the following exceptions and/or additions: 82 year old male presents to the ER with altered mental state and fever. Please see full history from POA as above as she was not present at the time of my exam. O/E A&Ox3, HS RRR, no murmurs, Chest CTAB, Abdo suprapubic tenderness, no CVA tenderness A/P Sepsis - suspect source UTI, CT A/P without IV contrast pending, ceftriaxone, follow up blood and urine cultures PG Care Time/CCT Total # of Minutes Spent Total Time Spent with Patient: Total time spent is greater than 50% in coordination of care (as documented) at patient's floor/unit and/or counseling patient: C[place] [address] INT INP/OBS CARE 3/75MIN Patient Type Established Medical Decision Making High Complexity Diagnoses Sepsis A41.9 Altered mental status R41.0 Altered mental status type: disorientation Elevated troponin R77.8 Parkinson's disease with neurogenic orthostatic hypotension G90.3 Depression F32.9 PAF (paroxysmal atrial fibrillation) I48.0 (2) Altered mental status Altered mental status type: disorientation Qualified Code(s): R41.0 - Disorientation, unspecified
--- NOTE | 2022-11-21 16:13 | Emergency Department Note ---
Impression & Plan Sepsis, Pneumonia, Urinary tract infection ED Provider Note INFORMANT: Patient and ED PROVIDER(S): Martin Stahl MD CHIEF COMPLAINT: Fever PLAN: Disposition: Admitted Condition: Guarded Outpatient prescription management: none Referral: None MEDICAL DECISION MAKING: Patient presented because of fever. He had symptoms concerning for UTI. He also had a mild cough. The patient underwent a sepsis work-up. His blood pressure was low. He was given fluid boluses to be 30 mL/kg. He was started on broad-spectrum antibiotics after cultures, cefepime and vancomycin. Initially daptomycin was ordered but this was not given as the patient was found to have a possible infiltrate on chest x-ray. The patient's blood pressure improved. His CBC showed a significant leukocytosis. Chemistry panel showed some dehydration. Patient's troponin is elevated. CT imaging of the abdomen pelvis was ordered due to the history of kidney stones. [facility] Case was discussed and diagnostics were reviewed. Patient was evaluated in the ER admitted for further management. Discussed with case assistant. Discussed with ED pharmacist After review of the information above and other included data, I feel the patient requires admission to the hospital. Triage Nursing notes reviewed and agree them. Vital Signs: reviewed and remarkable for hypotension Prior /Outside records reviewed: Prior culture results reviewed Differential diagnosis: Sepsis, UTI, pneumonia, metabolic, electrolyte abnormalities, cardiac sources, intracerebral event, toxicologic, neurologic, as well as other pathologies. Diagnostics, as interpreted by me: ECG: Twelve-lead ECG reveals a normal sinus rhythm at [address] elevation or depression. No PACs or PVCs. Cardiac Monitoring: Cardiac monitoring ordered by me: The patient was placed on continuous cardiac monitoring and observed. It revealed a normal sinus rhythm at 88 beats per minute without ectopy or evidence of dysrhythmia. Medical decision rules: none Imaging studies: Chest x-ray concerning for left lower lobe infiltrate. CT imaging pending. I refer you to the EMR for further details. HPI: The patient is a 82 year old male who presents to the Emergency Room with complaints of fever. This started today and is fluctuating. was concerned as the patient has a history of severe UTI. The patient and also note the following associated symptoms, some confusion, increased weakness, foul-smelling urine mild cough. The patient has been given Tylenol for relieving factors. C urrent pain is rated as 0/10. Pt denies LOC, headache, diaphoresis, visual changes, neck pain, chest pain, breathing difficulties, nausea, vomiting, abdominal pain, back pain, melena, hematochezia, numbness, lymphadenopathy, rash, or other complaints. PAST MEDICAL HISTORY: See Below, UTI, Parkinson's PAST SURGICAL HISTORY: See Below, SOCIAL HISTORY: See Below, retired HOME MEDICATIONS: See Below ALLERGIES: See Below VITALS: See Below PHYSICAL EXAMINATION: GENERAL: Awake, alert, ill-appearing, in no distress HENT: Normocephalic, atraumatic. Oropharynx unremarkable. EYES: Normal conjunctiva. Sclera non-icteric. NECK: Inspection normal. Non-tender. Supple. No nuchal rigidity. FROM. No masses. RESPIRATORY: Clear to auscultation. No wheezes. No rales. Normal respiratory effort. CARDIAC: Normal rate. Normal rhythm. No murmurs. No rubs. Extremities warm and well perfused. Pulses equal. No JVD. GI: Soft, non-distended. No tenderness to palpation. No rebound or guarding. No masses. RECTAL: Deferred. MUSCULOSKELETAL: Atraumatic. Chest examination reveals no tenderness. The back is symmetrical on inspection without obvious abnormality. There is no CVA tenderness to palpation. No joint edema. LOWER EXTREMITIES: Calves are equal size bilaterally and non-tender. No edema. No discoloration. NEURO: Mildly confused sensorium. generally weak but no focal sensory or motor deficits noted. SKIN: No rash or jaundice noted. CRITICAL CARE: I have personally spent greater than 30 minutes of critical care time in the direct management of this patient. This includes bedside care, interpretation of diagnostic studies, and testing, discussion with consultants, patient, and family members, and other required patient management activities. These minutes are in excess of all separately billable procedures. 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 Chronic constipation Closed head injury Depression Hypotension Hypothyroidism Lumbar pain Lumbar post-laminectomy syndrome Prior left L3-4 hemilaminectomy Memory loss Neurogenic bladder PAF (paroxysmal atrial fibrillation) Parkinson's disease Parkinson's disease Sacral insufficiency fracture Spinal stenosis of lumbar region Syncope Uncontrolled REM sleep behavior disorder Urge incontinence of urine Surgical History History of back surgery History of tonsillectomy 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) Family History Unknown Alzheimer disease Sister Diabetes Cancer Other Family history non-contributory Social History Smoking Status: Never smoker Tobacco Type: Cigarettes Second Hand Exposure: No; Hx Alcohol Use: No Hx Substance Use: No Preferred Language: Faroese Communication Ability: Impaired Golf Tournament Consultant Required: No Beliefs That Will Affect Care: None marital status: Current Living Situation: Spouse and Family current occupational status: retired Feels Safe at Home: Yes Assistive Devices: Glasses and Walker Allergies Allergies Allergy/AdvReac Type Severity Reaction Status Date / Time No Known Allergies Allergy Verified 11/13/22 19:59 Home Meds Home Medications Medication Instructions Recorded Confirmed atorvastatin 20 mg tablet (Lipitor) 20 mg PO QAM 05/11/19 11/21/22 cholecalciferol (vitamin D3) 50 2,000 unit PO TID 05/11/19 11/21/22 mcg (2,000 unit) capsule (Vitamin D3) clonazepam 1 mg tablet 2 mg PO HS #45 tabs 05/11/19 11/21/22 donepezil 10 mg tablet (Aricept) 10 mg PO HS 05/11/19 11/21/22 levothyroxine 50 mcg tablet 50 mcg PO QAM 06/30/19 11/21/22 (Synthroid) melatonin 10 mg tablet 10 mg PO HS 06/30/19 11/21/22 multivitamin (Daily Multi-Vitamin 1 tab PO PM 06/30/19 11/21/22 tablet) fludrocortisone 0.1 mg tablet 0.2 mg PO QAM 09/16/21 11/21/22 sennosides 8.6 mg tablet (Senokot) 17.2 mg PO BID PRN Constipation 09/16/21 11/21/22 midodrine 5 mg tablet 2.5 mg PO TID 01/22/22 11/21/22 carbidopa 25 mg-levodopa 100 mg 2 tab PO QID 09/27/22 11/21/22 tablet hydrocortisone 2.5 % topical cream 1 applic EXT TID PRN Hemorrhoids 09/27/22 11/21/22 with perineal applicator (Proctosol HC) ketoconazole 2 % topical cream 1 applic topical BID PRN NEEDED 09/27/22 11/21/22 venlafaxine 37.5 mg 37.5 mg PO DAILY 09/27/22 11/21/22 capsule,extended release 24 hr Previous Rx's Medication Instructions Recorded polyethylene glycol 3350 17 8.5 gm PO DAILY #0 grams 09/19/21 gram/dose oral powder (Miralax) methenamine hippurate 1 gram tablet 1 g PO Q12H #60 tabs 10/25/22 Results & Data (ED) Vital Signs Vital Signs - 24 hr 11/21/22 12:42 11/21/22 12:56 11/21/22 13:09 Temperature 36.7 C Temperature Source Oral Pulse Rate 94 H 89 Pulse Rate [Apical] Pulse Rhythm [Apical] Respiratory Rate 18 Respiratory Effort / Characteristics Respiratory Depth Respiratory Pattern Blood Pressure 75/45 L Blood Pressure [Right Arm] Blood Pressure Mean 55 Blood Pressure Mean [Right Arm] Blood Pressure Position Sitting Blood Pressure Position [Right Arm] Pulse Oximetry 90 96 Oxygen Delivery Method Room Air Room Air Sepsis Recent Fever Within 48 Hours No Sepsis New/Unexplained Change in Mental Status No Sepsis Action Taken by Nursing No Action Required 11/21/22 13:10 Temperature 37.4 C Temperature Source Oral Pulse Rate Pulse Rate [Apical] 85 Pulse Rhythm [Apical] Regular Respiratory Rate 18 Respiratory Effort / Characteristics Non-Labored Spontaneous Respiratory Depth Normal Respiratory Pattern Regular Blood Pressure Blood Pressure [Right Arm] 121/52 L Blood Pressure Mean Blood Pressure Mean [Right Arm] 75 Blood Pressure Position Blood Pressure Position [Right Arm] Lying Pulse Oximetry 96 Oxygen Delivery Method Room Air Sepsis Recent Fever Within 48 Hours Sepsis New/Unexplained Change in Mental Status Sepsis Action Taken by Nursing Laboratory Data 11/21/22 13:00 11/21/22 13:00 Lab Results 11/21/22 11/21/22 11/21/22 Range/Units 13:00 13:00 13:00 WBC 19.44 H (4.8-10.8) K/ul RBC 4.13 L (4.70-6.10) M/uL Hgb 12.9 L (14.0-18.0) g/dl Hct 38.1 L (42.0-52.0) % MCV 92.3 (80.0-100.0) fL MCH 31.2 (25.0-34.0) pg MCHC 33.9 (32.0-36.0) g/dL RDW Std Deviation 42.4 (36.4-46.3) fL RDW Coeff of Imelda 12.6 (11.5-14.5) % Plt Count 202 (130-400) K/uL MPV 10.9 (9.4-12.4) fL Immature Gran % (Auto) 0.7 % Neut % (Auto) 90.0 % Lymph % (Auto) 3.8 % [place] % (Auto) 5.2 % Eos % (Auto) 0.1 % Baso % (Auto) 0.2 % Neut # (Auto) 17.51 H (1.40-6.50) K/uL Lymph # (Auto) 0.73 L (1.2-3.4) K/uL [place] # (Auto) 1.01 H (0.11-0.59) K/uL Eos # (Auto) 0.02 (0-0.50) K/uL Baso # (Auto) 0.04 (0-0.2) K/uL Immature Gran # (Auto) 0.13 (0.01-0.20) K/uL Sodium 140 (136-145) mmol/L Potassium 3.5 (3.5-5.1) mmol/L Chloride 99 (98-107) mmol/L Carbon Dioxide 36 H (21-32) mmol/L Anion Gap 5 (3-11) BUN 19 (6-23) mg/dl Creatinine 0.97 (0.6-1.4) mg/dl Est Cr Clr Drug Dosing 66.7 ml/min Est GFR ( Amer) 85.1 ml/min Est GFR (Non-Af Amer) 73.4 ml/min BUN/Creatinine Ratio 19.6 (10-20) Glucose 116 H (70-99(Fasting)) mg/dl Lactate (0.4-2.0) mmol/L Calcium 8.9 (8.5-10.1) mg/dl Magnesium 1.7 (1.7-2.4) mg/dl Total Bilirubin 1.3 H (0.2-1.0) mg/dl Direct Bilirubin 0.2 (0-0.2) mg/dl AST 10 L (13-39) U/L ALT 13 (7-52) U/L Alkaline Phosphatase 71 (34-104) U/L Troponin I High Sens 31.3 H (0-20) pg/ml C-Reactive Protein (0-0.5) mg/dl Total Protein 6.6 (6.0-8.3) gm/dl Albumin 3.9 (3.4-5.0) gm/dl Prostate Specific Ag (0-4) ng/ml Procalcitonin 0.29 (0-0.5) ng/ml Urine Color Urine Appearance (Clear) Urine pH (4.5-7.5) Ur Specific [place] (1.000-1.030) Urine Protein (Negative) Urine Glucose (UA) (Negative) Urine Ketones (Negative) Urine Blood (Negative) Urine Nitrite (Negative) Urine Bilirubin (Negative) Urine Urobilinogen (Negative) Ur Leukocyte Esterase (Negative) Urine WBC (Auto) (0-5) /hpf Urine RBC (Auto) (0-4) /hpf U Hyaline Cast (Auto) (0-5) /lpf U Epithel Cells (Auto) (0-5) /lpf Urine Bacteria (Auto) (Negative) SARS-CoV-2, RNA, NAAT (NEGATIVE) 11/21/22 11/21/22 11/21/22 Range/Units 13:00 13:00 13:16 WBC (4.8-10.8) K/ul RBC (4.70-6.10) M/uL Hgb (14.0-18.0) g/dl Hct (42.0-52.0) % MCV (80.0-100.0) fL MCH (25.0-34.0) pg MCHC (32.0-36.0) g/dL RDW Std Deviation (36.4-46.3) fL RDW Coeff of Imelda (11.5-14.5) % Plt Count (130-400) K/uL MPV (9.4-12.4) fL Immature Gran % (Auto) % Neut % (Auto) % Lymph % (Auto) % [place] % (Auto) % Eos % (Auto) % Baso % (Auto) % Neut # (Auto) (1.40-6.50) K/uL Lymph # (Auto) (1.2-3.4) K/uL [place] # (Auto) (0.11-0.59) K/uL Eos # (Auto) (0-0.50) K/uL Baso # (Auto) (0-0.2) K/uL Immature Gran # (Auto) (0.01-0.20) K/uL Sodium (136-145) mmol/L Potassium (3.5-5.1) mmol/L Chloride (98-107) mmol/L Carbon Dioxide (21-32) mmol/L Anion Gap (3-11) BUN (6-23) mg/dl Creatinine (0.6-1.4) mg/dl Est Cr Clr Drug Dosing ml/min Est GFR ( Amer) ml/min Est GFR (Non-Af Amer) ml/min BUN/Creatinine Ratio (10-20) Glucose (70-99(Fasting)) mg/dl Lactate (0.4-2.0) mmol/L Calcium (8.5-10.1) mg/dl Magnesium (1.7-2.4) mg/dl Total Bilirubin (0.2-1.0) mg/dl Direct Bilirubin (0-0.2) mg/dl AST (13-39) U/L ALT (7-52) U/L Alkaline Phosphatase (34-104) U/L Troponin I High Sens (0-20) pg/ml C-Reactive Protein 2.93 H (0-0.5) mg/dl Total Protein (6.0-8.3) gm/dl Albumin (3.4-5.0) gm/dl Prostate Specific Ag 3.401 (0-4) ng/ml Procalcitonin (0-0.5) ng/ml Urine Color Urine Appearance (Clear) Urine pH (4.5-7.5) Ur Specific [place] (1.000-1.030) Urine Protein (Negative) Urine Glucose (UA) (Negative) Urine Ketones (Negative) Urine Blood (Negative) Urine Nitrite (Negative) Urine Bilirubin (Negative) Urine Urobilinogen (Negative) Ur Leukocyte Esterase (Negative) Urine WBC (Auto) (0-5) /hpf Urine RBC (Auto) (0-4) /hpf U Hyaline Cast (Auto) (0-5) /lpf U Epithel Cells (Auto) (0-5) /lpf Urine Bacteria (Auto) (Negative) SARS-CoV-2, RNA, NAAT NEGATIVE (NEGATIVE) 11/21/22 11/21/22 Range/Units 13:25 14:03 WBC (4.8-10.8) K/ul RBC (4.70-6.10) M/uL Hgb (14.0-18.0) g/dl Hct (42.0-52.0) % MCV (80.0-100.0) fL MCH (25.0-34.0) pg MCHC (32.0-36.0) g/dL RDW Std Deviation (36.4-46.3) fL RDW Coeff of Imelda (11.5-14.5) % Plt Count (130-400) K/uL MPV (9.4-12.4) fL Immature Gran % (Auto) % Neut % (Auto) % Lymph % (Auto) % [place] % (Auto) % Eos % (Auto) % Baso % (Auto) % Neut # (Auto) (1.40-6.50) K/uL Lymph # (Auto) (1.2-3.4) K/uL [place] # (Auto) (0.11-0.59) K/uL Eos # (Auto) (0-0.50) K/uL Baso # (Auto) (0-0.2) K/uL Immature Gran # (Auto) (0.01-0.20) K/uL Sodium (136-145) mmol/L Potassium (3.5-5.1) mmol/L Chloride (98-107) mmol/L Carbon Dioxide (21-32) mmol/L Anion Gap (3-11) BUN (6-23) mg/dl Creatinine (0.6-1.4) mg/dl Est Cr Clr Drug Dosing ml/min Est GFR ( Amer) ml/min Est GFR (Non-Af Amer) ml/min BUN/Creatinine Ratio (10-20) Glucose (70-99(Fasting)) mg/dl Lactate 1.0 (0.4-2.0) mmol/L Calcium (8.5-10.1) mg/dl Magnesium (1.7-2.4) mg/dl Total Bilirubin (0.2-1.0) mg/dl Direct Bilirubin (0-0.2) mg/dl AST (13-39) U/L ALT (7-52) U/L Alkaline Phosphatase (34-104) U/L Troponin I High Sens (0-20) pg/ml C-Reactive Protein (0-0.5) mg/dl Total Protein (6.0-8.3) gm/dl Albumin (3.4-5.0) gm/dl Prostate Specific Ag (0-4) ng/ml Procalcitonin (0-0.5) ng/ml Urine Color [place] Urine Appearance Turbid A (Clear) Urine pH 6.0 (4.5-7.5) Ur Specific [place] 1.019 (1.000-1.030) Urine Protein 2+ H (Negative) Urine Glucose (UA) Negative (Negative) Urine Ketones Trace H (Negative) Urine Blood 3+ H (Negative) Urine Nitrite Positive A (Negative) Urine Bilirubin Negative (Negative) Urine Urobilinogen Negative (Negative) Ur Leukocyte Esterase 3+ H (Negative) Urine WBC (Auto) >30 H (0-5) /hpf Urine RBC (Auto) >30 H (0-4) /hpf U Hyaline Cast (Auto) 5-10 H (0-5) /lpf U Epithel Cells (Auto) 10-20 H (0-5) /lpf Urine Bacteria (Auto) 4+ H (Negative) SARS-CoV-2, RNA, NAAT (NEGATIVE) Administered Medications Discontinued Medications Sodium Chloride (Nss 1000ml) 1,000 mls @ 999 mls/hr IV .Q1H1M GILLES Stop: 11/21/22 15:00 Last Infusion: 11/21/22 15:41 Dose: 0 mls/hr Documented By: Admin: 11/21/22 14:23 Dose: 999 mls/hr Documented By: Infusion: 11/21/22 14:23 Dose: 999 mls/hr Documented By: Admin: 11/21/22 13:36 Dose: 999 mls/hr Documented By: MELLISA Cefepime HCl (Maxipime) 2,000 mg in 20 mls @ 5 mls/min IV NOW STA; Protocol Stop: 11/21/22 14:08 Last Admin: 11/21/22 14:49 Dose: 5 mls/min Documented By: MELLISA Sodium Chloride (Nss 1000ml) 500 mls @ 999 mls/hr IV .Q31M ONE Stop: 11/21/22 14:42 Last Admin: 11/21/22 15:40 Dose: 999 mls/hr Documented By: MELLISA Vancomycin HCl 1,500 mg/ (Sodium Chloride) 530 mls @ 200 mls/hr IV NOW ONE Stop: 11/21/22 16:52 Last Admin: 11/21/22 14:52 Dose: 200 mls/hr Documented By: MELLISA Imaging Data Radiologist's Impression: Chest X-Ray 11/21/22 12:52 XR chest 1V portable CLINICAL HISTORY: Sepsis TECHNIQUE: Single frontal radiograph of the chest was obtained. Comparison: Comparison is made to chest radiograph 11/13/2022 FINDINGS: No lines and tubes are seen. Calcified aortic knob is seen. Left retrocardiac opacity is seen. No evidence of pleural effusion or pneumothorax. IMPRESSION: Left retrocardiac opacity may represent atelectasis, pneumonia, and/or aspiration. ACT 112: Negative or not required by law. Electronically signed by: Philip Hinton M.D. 11/21/2022 1:20 PM Discharge Plan Visit Data Chief Complaint: Fever Stated Complaint: FEVER,FOUL SMELLING URINE,LETHARGIC,DISORIENTED ED Provider: Martin Stahl Discharge Problem: Sepsis, Pneumonia, Urinary tract infection Discharge Instructions Interventions: ED Discharge Assessment Last Done: 11/21/22 15:38
[2022-11-21] MEDS: LACTATED RINGER'S 1,000 ML IV SCH (16:42)
[2022-11-21] MEDS: ENOXAPARIN INJ 40 MG/0.4 ML SYR SQ SCH (17:16)
--- NOTE | 2022-11-21 18:59 | CT Scan Report ---
CT abd pelvis wo con CLINICAL HISTORY: UTI, sepsis, prior left ureteral stone TECHNIQUE: Helical axial images of the abdomen and pelvis were obtained. Automated dose lowering tech niques and/or adjustment according to patient size were utilized for this exam. This exam was perfor med without intravenous contrast. CT DOSE: 376.64 mGy.cm COMPARISON: Comparison is made to CT abdomen pelvis 11/13/2022 FINDINGS: Lower chest: There are trace bilateral pleural effusions and partially visualizes atelectasis with o r without superimposed consolidation. Liver: Unremarkable. No focal lesions are seen. Gallbladder and biliary tree: No calcified gallstones. Normal caliber wall. No intra- or extrahepatic biliary ductal dilation. Pancreas: Unremarkable, no focal lesions. Spleen: Unremarkable. Adrenals: Unremarkable. Kidneys and ureters: There is a 3 mm stone in the right distal ureter without evidence of hydronephro sis. Nonobstructive stones are also seen. Bladder: Diffuse homogeneous wall thickening is seen. Reproductive organs: Prostatomegaly is seen. Bowel: There is thickening of a portion of the sigmoid colon. Lymph nodes Retroperitoneal: Unremarkable. Pelvic: Subcentimeter lymph nodes are noted. Mesenteric: Unremarkable. Peritoneum: Mild ascites is seen, more prominent than prior exam. Vessels: Unremarkable. Abdominal wall: Unremarkable. Bones: Degenerative changes in the visualized spine. IMPRESSION: 1. Trace bilateral pleural effusions with possible residual groundglass opacity. 2. 3 mm stone in the left distal ureter is again seen without evidence of hydronephrosis. Nonobstruc tive nephrolithiasis is seen. 3. Thickening of the bladder wall is again seen compatible with history of UTI. 4. Nonspecific thickening of a portion of the sigmoid colon, new from prior exam may represent a non specific colitis. 5. Additional findings as above. ACT 112: Negative or not required by law. Electronically signed by: Philip Hinton M.D. 11/21/2022 6:57 PM
[2022-11-21] MEDS: ALBUT/IPRATROP 3MG/0.5MG NEB 3 ML VIAL NEB SCH (19:18)
[2022-11-21] MEDS ORDERED: metroNIDAZOLE 500 MG/100 ML BAG IV SCH (20:00)
[2022-11-21] MEDS: CARBIDOPA/LEVODOPA 25/100MG TAB PO SCH (20:11)
[2022-11-21] MEDS: cefTRIAXone SODIUM 2,000 MG in DEXTROSE 5% 50 ML IV SCH (20:11)
[2022-11-21] MEDS: DONEPEZIL HCL 10 MG TAB PO SCH (20:12)
[2022-11-21] MEDS: MELATONIN 3 MG TAB PO SCH (20:14)
[2022-11-21] MEDS: MIDODRINE HCL 2.5 MG TAB PO SCH (20:14)
[2022-11-21] MEDS: clonazePAM 1 MG TAB PO SCH (20:21)
[2022-11-22] MEDS: LACTATED RINGER'S 1,000 ML IV SCH (05:12)
[2022-11-22 06:44] LABS: Basophils # (auto) 0.06 K/uL (0-0.2); Basophils % (auto) 0.4 %; Eosinophils # (auto) 0.12 K/uL (0-0.50); Eosinophils % (auto) 0.8 %; Hematocrit (blood only) 30.7 % (42.0-52.0); Hemoglobin 10.4 g/dl (14.0-18.0); Immature Granulocytes # (auto) 0.12 K/uL (0.01-0.20); Immature Granulocytes % (auto) 0.8 %; Lymphocytes # (auto) 1.44 K/uL (1.2-3.4); Lymphocytes % (auto) 9.6 %; Mean Corpuscular Hemoglobin 31.3 pg (25.0-34.0); Mean Corpuscular Hgb Conc 33.9 g/dL (32.0-36.0); Mean Corpuscular Volume 92.5 fL (80.0-100.0); Mean Platelet Volume 11.1 fL (9.4-12.4); Monocytes # (auto) 0.98 K/uL (0.11-0.59); Monocytes % (auto) 6.6 %; Neutrophils # (auto) 12.21 K/uL (1.40-6.50); Neutrophils % (auto) 81.8 %; Platelet Count 161 K/uL (130-400); RDW Coefficient of Variation 12.9 % (11.5-14.5); RDW Standard Deviation 43.7 fL (36.4-46.3); Red Blood Count 3.32 M/uL (4.70-6.10); White Blood Count 14.93 K/ul (4.8-10.8)
[2022-11-22 07:01] LABS: Anion Gap 4 (3-11); BUN Creatinine Ratio 23.7 (10-20); Blood Urea Nitrogen 18 mg/dl (6-23); Calcium 8.2 mg/dl (8.5-10.1); Carbon Dioxide 33 mmol/L (21-32); Chloride 105 mmol/L (98-107); Creatinine Clr Calc Pharmacy 85.1 ml/min; Est GFR (African American) 99.9 ml/min; Est GFR (Non-African American) 86.2 ml/min; Glucose 95 mg/dl (70-99(Fasting)); Potassium 3.2 mmol/L (3.5-5.1); Sodium 142 mmol/L (136-145)
[2022-11-22] MEDS: ALBUT/IPRATROP 3MG/0.5MG NEB 3 ML VIAL NEB SCH ×4 (07:04→19:16)
[2022-11-22 07:48] LABS: Alanine Aminotransferase < 3 U/L (7-52); Albumin Globulin Ratio 1.5 (0.9-2); Albumin Level 3.2 gm/dl (3.4-5.0); Alkaline Phosphatase 54 U/L (34-104); Aspartate Aminotransferase 8 U/L (13-39); Bilirubin,Total 1.1 mg/dl (0.2-1.0); Globulin 2.2 gm/dl (2.5-4.0); Magnesium 1.7 mg/dl (1.7-2.4); Total Protein 5.4 gm/dl (6.0-8.3)
--- NOTE | 2022-11-22 08:50 | Hospitalist Progress Note ---
Date of Service November 22, 2022 Assessment & Plan (1) Sepsis: Plan: -2/2 UTI vs. aspiration pneumonia -Patient initially came to the ED with a fever of 101.8, hypotension, AMS and significant leukocytosis -Was given one dose of cefepime, daptomycin, and vancomycin by the ED due to UTI and possible pneumonia on CXR -Procal 0.29; more suspicious of UTI than aspiration pneumonia at this time -COVID-19 negative, MRSA nares negative -Speech to evaluate for evidence of aspiration events: No abnormalities noted on video swallow 11/22 -UCx growing >100,000 CFU GNR, continue ceftriaxone, BCx pending, tailor Abx as able -CT of the abd/pelvis w/o con with several nonobstructive renal calculi but no evidence of hydro or ureteral stone -Urology consulted and appreciate recommendations: Plan for outpatient stone treatment next week with Dr. Purcell unless symptoms not improving with current interventions -Continue to monitor fever curve, could be that patient's symptoms overnight improved due to escalated ER Abx as compared to ceftriaxone -Will continue light IV fluids with LR at 80 mL/hr, to complete total of 2L -BL SCDs and SuB-Q Lovenox for DVT PPX (2) Complicated UTI (urinary tract infection): Plan: see above (3) Metabolic encephalopathy: Plan: -In the setting of sepsis suspected 2/2 UTI, in patient with baseline P arkinson's dementia -Patient is without acute neuro defects and was improving clinically per his yesterday -Continue to monitor mental status with care of UTI as above (4) Demand ischemia: Plan: -Initial high sensitivity trop elevated at 31, down to 29.9 on repeat -Patient is asymptomatic and without acute ECG changes -Likely demand ischemia in the setting of sepsis (5) Parkinson's disease with neurogenic orthostatic hypotension: Plan: -Stable -Patient's has mentioned continue issues with swallowing pills and food -Will consult speech therapy and order bedside dysphagia screen -Continue Carbidopa-Levodopa and Donepezil -Continue Fludrocortisone and and midodrine -Fall precautions (6) Depression: Plan: -Continue venlafaxine (7) PAF (paroxysmal atrial fibrillation): Plan: -Stable, HR normal -Not on anticoagulation due to bleeding risk from recurrent falls (8) Hypokalemia: Plan: Potassium of 3.2 today, will replete with KCl 40 mEq p.o. daily; repeat BMP tomorrow Plan Continued management of sepsis suspected secondary to UTI with IV antibiotics, ultimately for transition to p.o. antibiotics on discharge Admission and Anticipated Discharge Date Admission Date: November 21, 2022 Subjective Patient without any acute events overnight. No further fever since admission. Patient himself does not have any complaints including no chest pain, shortness of breath, abdominal pain. Wears a condom catheter at home at baseline, denies dysuria right now. No back pain. Review of Systems Review of Systems: All systems reviewed & are unremarkable except as noted in Subjective Physical Exam Constitutional: WD/WN, vitals as above Respiratory: normal respiratory effort, lungs clear to auscultation Cardiovascular: Heart rate irregularly irregular, no murmurs, no edema Gastrointestinal (Abdomen): normal bowel sounds, soft, nontender, no hepatosplenomegaly Skin: no rashes, warm and dry Psychiatric: Orientation: alert, oriented to person and oriented to place Results & Data Results & Data ([facility]) Vital Signs (Past 12 Hours) Vital Signs Temp Pulse Pulse Pulse Resp BP Pulse Ox 11/22/22 07:22 36.6 C 74 16 148/72 H 92 11/22/22 07:12 71 11/22/22 07:04 76 17 92 11/22/22 04:01 36.5 C 73 20 116/60 93 11/22/22 00:00 77 11/21/22 23:55 36.6 C 61 18 128/65 96 O2 Del Method 11/22/22 07:22 Nebulizer 11/22/22 07:12 11/22/22 07:04 Room Air 11/22/22 04:01 Room Air 11/22/22 00:00 11/21/22 23:55 Room Air PG Care Time/CCT Total # of Minutes Spent Total Time Spent with Patient: Total time spent is greater than 50% in coordination of care (as documented) at patient's floor/unit and/or counseling patient: Coding Level of Care Code 76499 SUB INP/OBS CARE 3/50MIN Diagnoses Sepsis A41.9 Sepsis acute organ dysfunction status: without acute organ dysfunction Sepsis type: sepsis due to unspecified organism Complicated UTI (urinary tract infection) N39.0 Metabolic encephalopathy G93.41 Demand ischemia I24.8 Parkinson's disease with neurogenic orthostatic hypotension G90.3 Depression F32.9 PAF (paroxysmal atrial fibrillation) I48.0 Hypokalemia E87.6 (1) Sepsis Sepsis acute organ dysfunction status: without acute organ dysfunction Sepsis type: sepsis due to unspecified organism Qualified Code(s): A41.9 - Sepsis, unspecified organism
[2022-11-22] MEDS ORDERED: MAGNESIUM SULFATE / D5W 1 GM/100 ML BAG IV ONE (09:17)
[2022-11-22] MEDS: ATORVASTATIN 20 MG TAB PO SCH (09:22)
[2022-11-22] MEDS: VENLAFAXINE HCL XR 37.5 MG CAPXR PO SCH (09:22)
[2022-11-22] MEDS: FLUDROCORTISONE ACETATE 0.1 MG TAB PO SCH (09:27)
[2022-11-22] MEDS: CARBIDOPA/LEVODOPA 25/100MG TAB PO SCH ×4 (09:27→21:09)
[2022-11-22] MEDS: LEVOTHYROXINE SODIUM 50 MCG TABLET PO SCH (09:28)
[2022-11-22] MEDS: POTASSIUM CHLORIDE CRTAB 20 MEQ TABCR PO SCH (09:56)
[2022-11-22] MEDS: MIDODRINE HCL 2.5 MG TAB PO SCH ×3 (11:18→21:17)
--- NOTE | 2022-11-22 13:56 | Fluoroscopy Report ---
FL video swallow CLINICAL HISTORY: assess for aspiration TECHNIQUE: Video fluoroscopy of the pharyngeal region was performed as barium mixtures of varying con sistencies were administered to the patient by the speech pathologist. A formal esophagram was not pe rformed. Comparison: None available at the time of this dictation. FINDINGS: Total fluoroscopy time: 2.3 minutes. Radiation dose: 45.66 mGy. The patient swallowed the different barium consistencies without difficulty. There was no laryngeal v estibular penetration or nicole tracheal aspiration. IMPRESSION: No evidence of aspiration. Please see the speech pathology report for further details. ACT 112: Negative or not required by law. Electronically signed by: Philip Hinton M.D. 11/22/2022 1:54 PM
--- NOTE | 2022-11-22 14:29 | Urology Consultation ---
Date of Consultation November 22, 2022 Assessment & Plan (1) Complicated UTI (urinary tract infection): (2) Left ureteral calculus: Plan 82yo/M admitted with sepsis secondary to aspiration pneumonia versus UTI. Plan of care reviewed with Dr. Purcell, on-call urologist. CT abdomen pelvis on arrival noted a 3 mm distal left ureteral stone without hydronephrosis. He is afebrile and hemodynamically stable. Labs today show leukocytosis improving, normal renal function. Urine culture is preliminary with gram- negative bacilli, blood cultures pending. Continues on IV ceftriaxone. Follow culture and tailor as culture data becomes available. Given there is no significant obstruction on imaging and he seems to be improving with antibiotics, no intervention planned at this time. We will plan for outpatient stone treatment next week with Dr. Purcell. For now, continue with supportive care, antibiotic therapy, and prn pain management. Please contact our service urgently if he develops fever or other acute changes as we may need to revisit stent placement. Will arrange outpatient procedure for next week. Plan discussed with patient's who is POA and agreeable with plan. Urology will follow peripherally. Please contact us with any further questions, concerns, or changes in patient's status. History of Present Illness Attending Physician: Rylee Edmond, History of Present Illness 82-year-old male with a PMHx significant for Parkinsons disease with dementia, orthostatic hypotension, paroxysmal afib not on anticoagulation due to frequent falls, hypothyroidism, neurogenic bladder (unable to use alpha blockers due to significant orthostatic hypotension), and chronic constipation who presented with fever, hypotension, ill feelings and admitted with sepsis secondary to aspiration pneumonia versus UTI. CT abdomen pelvis on arrival noted a 3 mm stone in the left distal ureter is again seen without evidence of hydronephrosis. He had been seen approximately one week prior in the emergency department for similar symptoms. A CT abdomen pelvis at that time also noted a 3 mm stone in the distal left ureter without hy dronephrosis. In the ED the patient was found to be afebrile, initially hypotensive at 75/45, and stable on RA. Labs were remarkable for a leukocytosis of 19, stable Hgb, stable Cr of 0.97. Allergies Allergy/AdvReac Type Severity Reaction Status Date / Time No Known Allergies Allergy Verified 11/13/22 19:59 Home Medications Medication Instructions Recorded Confirmed Type atorvastatin 20 mg tablet (Lipitor) 20 mg PO QAM 05/11/19 11/21/22 History cholecalciferol (vitamin D3) 50 2,000 unit PO TID 05/11/19 11/21/22 History mcg (2,000 unit) capsule (Vitamin D3) clonazepam 1 mg tablet 2 mg PO HS #45 tabs 05/11/19 11/21/22 History donepezil 10 mg tablet (Aricept) 10 mg PO HS 05/11/19 11/21/22 History levothyroxine 50 mcg tablet 50 mcg PO QAM 06/30/19 11/21/22 History (Synthroid) melatonin 10 mg tablet 10 mg PO HS 06/30/19 11/21/22 History multivitamin (Daily Multi-Vitamin 1 tab PO PM 06/30/19 11/21/22 History tablet) fludrocortisone 0.1 mg tablet 0.2 mg PO QAM 09/16/21 11/21/22 History sennosides 8.6 mg tablet (Senokot) 17.2 mg PO BID PRN Constipation 09/16/21 11/21/22 History polyethylene glycol 3350 17 8.5 gm PO DAILY #0 grams 09/19/21 11/21/22 Rx gram/dose oral powder (Miralax) midodrine 5 mg tablet 2.5 mg PO TID 01/22/22 11/21/22 History carbidopa 25 mg-levodopa 100 mg 2 tab PO QID 09/27/22 11/21/22 History tablet hydrocortisone 2.5 % topical cream 1 applic EXT TID PRN Hemorrhoids 09/27/22 11/21/22 History with perineal applicator (Proctosol HC) ketoconazole 2 % topical cream 1 applic topical BID PRN NEEDED 09/27/22 11/21/22 History venlafaxine 37.5 mg 37.5 mg PO DAILY 09/27/22 11/21/22 History capsule,extended release 24 hr methenamine hippurate 1 gram tablet 1 g PO Q12H #60 tabs 10/25/22 11/21/22 Rx Patient History Medical History (Updated 11/22/22 @ 14:21 by LUÍS Baird) Adjustment disorder 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 Chronic constipation Closed head injury Depression Hypotension Hypothyroidism Lumbar pain Lumbar post-laminectomy syndrome Prior left L3-4 hemilaminectomy Memory loss Neurogenic bladder PAF (paroxysmal atrial fibrillation) Parkinson's disease Parkinson's disease Sacral insufficiency fracture Spinal stenosis of lumbar region Syncope Uncontrolled REM sleep behavior disorder Urge incontinence of urine Surgical History History of back surgery History of tonsillectomy 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) Family History Unknown Alzheimer disease Sister Diabetes Cancer Other Family history non-contributory Social History Smoking Status: Never smoker Tobacco Type: Cigarettes Second Hand Exposure: No; Do You Dip or Chew Tobacco: No; Tobacco Cessation Education Requested by Patient: No Hx Alcohol Use: No Hx Substance Use: No Preferred Language: Yoruba Communication Ability: Effective Box Turner Required: No Beliefs That Will Affect Care: None marital status: Current Living Situation: Spouse current occupational status: retired Other Information That Helps Us Care for You: No Feels Safe at Home: Yes Safety Concerns: Feels Safe At This Time Assistive Devices: Mechanical Lift, Special Shoe, Walker and Wheelchair Review of Systems Review of Systems: Discussed with . Limited ROS from patient. Physical Exam Constitutional: no acute distress Respiratory: no respiratory distress and no labored breathing Musculoskeletal: Head/Neck/Chest: normocephalic Skin: No visible rashes or lesions to exposed skin areas Neurologic: awake Psychiatric: A+Ox3, euthymic affect Results & Data ([facility]) Vital Signs (Past 12 Hours) Vital Signs Temp Pulse Pulse Pulse Resp BP Pulse Ox 11/22/22 11:51 36.6 C 80 16 136/65 93 11/22/22 10:41 75 16 93 11/22/22 07:22 36.6 C 74 16 148/72 H 92 11/22/22 07:12 71 11/22/22 07:04 76 17 92 11/22/22 04:01 36.5 C 73 20 116/60 93 O2 Del Method 11/22/22 11:51 Room Air 11/22/22 10:41 Room Air 11/22/22 07:22 Nebulizer 11/22/22 07:12 11/22/22 07:04 Room Air 11/22/22 04:01 Room Air PG Care Time/CCT Total # of Minutes Spent Total Time Spent with Patient: Total time spent is greater than 50% in coordination of care (as documented) at patient's floor/unit and/or counseling patient: Coding Level of Care Code 23494 INT INP/OBS CARE 1/40MIN Diagnoses Complicated UTI (urinary tract infection) N39.0 Left ureteral calculus N20.1
--- NOTE | 2022-11-22 15:43 | Anesthesiology Consultation ---
Date of Service November 22, 2022 Assessment & Plan Chart Review Chart Review: Acceptable Risk for Surgery and Patient NOT seen in Pre Admission Testing Consults Requested none ASA ASA3 Proposed Anesthesia Anesthesia Type: General History Height/Weight Height: 6 ft Weight: 80.1 kg Allergies Allergy/AdvReac Type Severity Reaction Status Date / Time No Known Allergies Allergy Verified 11/13/22 19:59 Medications Home Medications Medication Instructions Recorded Confirmed Last Taken atorvastatin 20 mg tablet (Lipitor) 20 mg PO QAM 05/11/19 11/21/22 11/13/22 cholecalciferol (vitamin D3) 50 2,000 unit PO TID 05/11/19 11/21/22 11/13/22 mcg (2,000 unit) capsule (Vitamin D3) clonazepam 1 mg tablet 2 mg PO HS #45 tabs 05/11/19 11/21/22 11/12/22 donepezil 10 mg tablet (Aricept) 10 mg PO HS 05/11/19 11/21/22 11/12/22 levothyroxine 50 mcg tablet 50 mcg PO QAM 06/30/19 11/21/22 11/13/22 (Synthroid) melatonin 10 mg tablet 10 mg PO HS 06/30/19 11/21/22 11/12/22 multivitamin (Daily Multi-Vitamin 1 tab PO PM 06/30/19 11/21/22 11/12/22 tablet) fludrocortisone 0.1 mg tablet 0.2 mg PO QAM 09/16/21 11/21/22 11/13/22 sennosides 8.6 mg tablet (Senokot) 17.2 mg PO BID PRN Constipation 09/16/21 11/21/22 09/27/22 08:00 polyethylene glycol 3350 17 8.5 gm PO DAILY #0 grams 09/19/21 11/21/22 11/13/22 gram/dose oral powder (Miralax) midodrine 5 mg tablet 2.5 mg PO TID 01/22/22 11/21/22 11/13/22 carbidopa 25 mg-levodopa 100 mg 2 tab PO QID 09/27/22 11/21/22 11/13/22 18:00 tablet hydrocortisone 2.5 % topical cream 1 applic EXT TID PRN Hemorrhoids 09/27/22 11/21/22 Unknown with perineal applicator (Proctosol ) ketoconazole 2 % topical cream 1 applic topical BID PRN NEEDED 09/27/22 11/21/22 Unknown venlafaxine 37.5 mg 37.5 mg PO DAILY 09/27/22 11/21/22 11/13/22 capsule,extended release 24 hr methenamine hippurate 1 gram tablet 1 g PO Q12H #60 tabs 10/25/22 11/21/22 11/13/22 08:00 Active Medications Generic Name Dose Route Start Last Admin Trade Name Freq PRN Reason Stop Dose Admin Albuterol 3 ml 11/21/22 19:00 11/22/22 14:24 Albut/Ipratrop 3mg/0.5mg Neb 3 Ml Vial NEB 12/21/22 18:59 3 ml QIDR GILLES Administration Protocol Atorvastatin Calcium 20 mg 11/22/22 09:00 11/22/22 09:22 Atorvastatin 20 Mg Tab PO 12/22/22 08:59 20 mg QAM GILLES Administration Carbidopa/Levodopa 2 tab 11/21/22 21:00 11/22/22 14:09 Carbidopa/Levodopa 25/100mg Tab PO 12/21/22 20:59 2 tab QID GILLES Administration Clonazepam 2 mg 11/21/22 21:00 11/21/22 20:21 Clonazepam 1 Mg Tab PO 12/21/22 20:59 2 mg HS GILLES Administration Donepezil HCl 10 mg 11/21/22 21:00 11/21/22 20:12 Donepezil Hcl 10 Mg Tab PO 12/21/22 20:59 10 mg HS GILLES Administration Enoxaparin Sodium 40 mg 11/21/22 17:00 11/21/22 17:16 Enoxaparin Inj 40 Mg/0.4 Ml Syr SQ 12/21/22 16:59 40 mg Q24H GILLES Administration Fludrocortisone Acetate 0.2 mg 11/22/22 09:00 11/22/22 09:27 Fludrocortisone Acetate 0.1 Mg Tab PO 12/22/22 08:59 0.2 mg QAM GILLES Administration Lactated Ringer's 1,000 mls @ 80 mls/hr 11/21/22 15:30 11/22/22 05:12 Lr IV 11/22/22 16:29 80 mls/hr .[id number] GILLES Administration Ceftriaxone Sodium 2,000 mg/ 70 mls @ 100 mls/hr 11/21/22 21:00 11/21/22 21:25 Dextrose IV 12/01/22 20:59 Infused Q24H GILLES Infusion Protocol Levothyroxine Sodium 50 mcg 11/22/22 09:00 11/22/22 09:28 Levothyroxine Sodium 50 Mcg Tablet PO 12/22/22 08:59 50 mcg QAM GILLES Administration Melatonin 9 mg 11/21/22 21:00 11/21/22 20:14 Melatonin 3 Mg Tab PO 12/21/22 20:59 9 mg HS GILLES Administration Midodrine 2.5 mg 11/21/22 21:00 11/22/22 14:11 Midodrine Hcl 2.5 Mg Tab PO 12/21/22 20:59 2.5 mg TID GILLES Administration Potassium Chloride 40 meq 11/22/22 09:30 11/22/22 09:56 Potassium Chloride Crtab 20 Meq Tabcr PO 12/22/22 09:29 40 meq QAM GILLES Administration Venlafaxine HCl 37.5 mg 11/22/22 09:00 11/22/22 09:22 Venlafaxine Hcl Xr 37.5 Mg Capxr PO 12/22/22 08:59 37.5 mg DAILY GILLES Administration Past Medical History Medical History Adjustment disorder 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 Chronic constipation Closed head injury Depression Hypotension Hypothyroidism Lumbar pain Lumbar post-laminectomy syndrome Prior left L3-4 hemilaminectomy Memory loss Neurogenic bladder PAF (paroxysmal atrial fibrillation) Parkinson's disease Parkinson's disease Sacral insufficiency fracture Spinal stenosis of lumbar region Syncope Uncontrolled REM sleep behavior disorder Urge incontinence of urine Exercise / Class Metabolic Activity III < 4 Walking/Shop/Light housework Past Family History Family History Unknown Alzheimer disease Sister Diabetes Cancer Other Family history non-contributory Past Surgical History Surgical History History of back surgery History of tonsillectomy 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) Past Anesthesia History No Hx of Anesthesia Complications and No Family Hx of Anesthesia Complications History of PONV No Hx of PONV and No Hx of Motion Sickness Social History Smoking Status: Never smoker Do You Dip or Chew Tobacco: No Hx Alcohol Use: No Hx Substance Use: No substance use type: does not use Physical Exam Vital Signs Last Vital Signs Temp 36.5 C 11/22/22 15:36 Pulse 75 11/22/22 15:36 Resp 18 11/22/22 15:36 BP 142/61 H 11/22/22 15:36 Pulse Ox 94 11/22/22 15:36 O2 Del Method Room Air 11/22/22 15:36 Constitutional no acute distress ENMT Mouth: no dentition abnormality Thyromental Distance: > or= 3.5 Finger Breadths Mallampati Class: II Neck normal visual inspection, trachea midline and + facial hair; neck extension not limited Respiratory normal respiratory effort Auscultation: lungs clear to auscultation bilaterally Cardiovascular Rate/Rhythm: regular rate and regular rhythm Heart Sounds: no murmur Vessels: no carotid bruit Musculoskeletal Spine: normal cervical ROM and no pain with cervical ROM Extremities: + limited ROM of extremities Neurologic moves all extremities Motor/Sensory: no sensory deficit Psychiatric Orientation: alert and oriented x 3 Testing Laboratory Results 11/22/22 05:54 11/22/22 05:54 Urine Color [place] 11/21/22 13:25 Urine Appearance Turbid (Clear) A 11/21/22 13:25 Urine pH 6.0 (4.5-7.5) 11/21/22 13:25 Ur Specific [place] 1.019 (1.000-1.030) 11/21/22 13:25 Urine Protein 2+ (Negative) H 11/21/22 13:25 Urine Glucose (UA) Negative (Negative) 11/21/22 13:25 Urine Ketones Trace (Negative) H 11/21/22 13:25 Urine Nitrite Positive (Negative) A 11/21/22 13:25 Ur Leukocyte Esterase 3+ (Negative) H 11/21/22 13:25 Urine WBC (Auto) >30 /hpf (0-5) H 11/21/22 13:25 Urine RBC (Auto) >30 /hpf (0-4) H 11/21/22 13:25 U Hyaline Cast (Auto) 5-10 /lpf (0-5) H 11/21/22 13:25 U Epithel Cells (Auto) 10-20 /lpf (0-5) H 11/21/22 13:25 Urine Bacteria (Auto) 4+ (Negative) H 11/21/22 13:25 11/21/22 14:03 Aerobic Blood Culture - Preliminary Blood No growth in Aerobic bottle after 24 hours. Anaerobic Blood Culture - Preliminary No growth in Anaerobic bottle after 24 hours. 11/21/22 13:00 Aerobic Blood Culture - Preliminary Blood No growth in Aerobic bottle after 24 hours. Anaerobic Blood Culture - Preliminary No growth in Anaerobic bottle after 24 hours. 11/21/22 13:25 Urine Culture - Preliminary Urine,Indwelling Cath Gram negative bacilli Electrocardiogram Date: 11/21/22 Findings: + NSR @ (@ 84 w/SA) Chest X-Ray Date: 11/21/22 Findings: + infiltrate (Left retrocardiac opacity) and + atherosclerosis of thoracic aorta Echocardiogram Date: 01/26/21 EF: 60% LV Function: normal RWMA: + none Other Findings: + atrial enlargement (moderate LA dilation) and + LVH (moderate) Valvular Disease: + no significant valvular disease
[2022-11-22] MEDS: ENOXAPARIN INJ 40 MG/0.4 ML SYR SQ SCH (17:35)
[2022-11-22] MEDS ORDERED: ALBUT/IPRATROP 3MG/0.5MG NEB 3 ML VIAL NEB PRN (21:00)
[2022-11-22] MEDS: MELATONIN 3 MG TAB PO SCH (21:08)
[2022-11-22] MEDS: DONEPEZIL HCL 10 MG TAB PO SCH (21:09)
[2022-11-22] MEDS: clonazePAM 1 MG TAB PO SCH (21:17)
[2022-11-22] MEDS: cefTRIAXone SODIUM 2,000 MG in DEXTROSE 5% 50 ML IV SCH (21:17)
[2022-11-23 05:54] LABS: Basophils # (auto) 0.02 K/uL (0-0.2); Basophils % (auto) 0.2 %; Eosinophils # (auto) 0.16 K/uL (0-0.50); Eosinophils % (auto) 1.6 %; Hematocrit (blood only) 30.1 % (42.0-52.0); Immature Granulocytes # (auto) 0.04 K/uL (0.01-0.20); Immature Granulocytes % (auto) 0.4 %; Lymphocytes # (auto) 1.25 K/uL (1.2-3.4); Lymphocytes % (auto) 12.4 %; Mean Corpuscular Hemoglobin 30.7 pg (25.0-34.0); Mean Corpuscular Hgb Conc 33.2 g/dL (32.0-36.0); Mean Corpuscular Volume 92.3 fL (80.0-100.0); Mean Platelet Volume 10.7 fL (9.4-12.4); Monocytes # (auto) 0.67 K/uL (0.11-0.59); Monocytes % (auto) 6.6 %; Neutrophils # (auto) 7.96 K/uL (1.40-6.50); Neutrophils % (auto) 78.8 %; Platelet Count 144 K/uL (130-400); RDW Coefficient of Variation 12.8 % (11.5-14.5); RDW Standard Deviation 43.6 fL (36.4-46.3); Red Blood Count 3.26 M/uL (4.70-6.10)
[2022-11-23 06:12] LABS: Anion Gap 5 (3-11); BUN Creatinine Ratio 26.5 (10-20); Blood Urea Nitrogen 18 mg/dl (6-23); Calcium 8.2 mg/dl (8.5-10.1); Carbon Dioxide 31 mmol/L (21-32); Chloride 103 mmol/L (98-107); Creatinine Clr Calc Pharmacy 95.1 ml/min; Est GFR (African American) 104.5 ml/min; Est GFR (Non-African American) 90.2 ml/min; Glucose 96 mg/dl (70-99(Fasting)); Potassium 3.5 mmol/L (3.5-5.1); Sodium 139 mmol/L (136-145)
[2022-11-23 06:13] LABS: Alanine Aminotransferase < 3 U/L (7-52); Albumin Globulin Ratio 1.3 (0.9-2); Alkaline Phosphatase 53 U/L (34-104); Aspartate Aminotransferase 10 U/L (13-39); Bilirubin,Total 0.9 mg/dl (0.2-1.0); Globulin 2.4 gm/dl (2.5-4.0); Total Protein 5.4 gm/dl (6.0-8.3)
[2022-11-23] MEDS ORDERED: Nursing to Pharmacy Communication SCH (06:45)
[2022-11-23] MEDS: CARBIDOPA/LEVODOPA 25/100MG TAB PO SCH ×4 (10:02→21:52)
[2022-11-23] MEDS: VENLAFAXINE HCL XR 37.5 MG CAPXR PO SCH (10:02)
[2022-11-23] MEDS: POTASSIUM CHLORIDE CRTAB 20 MEQ TABCR PO SCH (10:02)
[2022-11-23] MEDS: ATORVASTATIN 20 MG TAB PO SCH (10:02)
[2022-11-23] MEDS: LEVOTHYROXINE SODIUM 50 MCG TABLET PO SCH (10:03)
[2022-11-23] MEDS: FLUDROCORTISONE ACETATE 0.1 MG TAB PO SCH (10:03)
[2022-11-23] MEDS: MIDODRINE HCL 2.5 MG TAB PO SCH ×3 (10:03→17:30)
[2022-11-23] MEDS: POLYETHYLENE (MIRALAX) 17 GM PACK PO SCH (10:15)
--- NOTE | 2022-11-23 12:24 | Hospitalist Progress Note ---
Date of Service November 23, 2022 Assessment & Plan (1) Sepsis: Plan: -2/2 UTI vs. aspiration pneumonia -Patient initially came to the ED with a fever of 101.8, hypotension, AMS and significant leukocytosis -Was given one dose of cefepime, daptomycin, and vancomycin by the ED due to UTI and possible pneumonia on CXR -Procal 0.29; more suspicious of UTI than aspiration pneumonia at this time -COVID-19 negative, MRSA nares negative -Speech evaluated for evidence of aspiration events: No abnormalities noted on video swallow 11/22 -UCx growing >100,000 CFU E. coli, continue ceftriaxone, BCx no growth to date -CT of the abd/pelvis w/o con with several nonobstructive renal calculi but no evidence of hydro or ureteral stone -Urology consulted and appreciate recommendations: Plan for outpatient stone treatment next week with Dr. Purcell unless symptoms not improving with current interventions -Continue to monitor for fevers -Will give another 1L NSS today, patient with poor oral intake of fluids -BL SCDs and SuB-Q Lovenox for DVT PPX (2) Complicated UTI (urinary tract infection): Plan: see above (3) Metabolic encephalopathy: Plan: -In the setting of sepsis suspected 2/2 UTI, in patient with baseline Parkinson's dementia -Patient is without acute neuro defects, alert and oriented this AM but more confused this afternoon suspect element of hospital-related delirium -Continue to monitor mental status with care of UTI as above (4) Demand ischemia: Plan: -Initial high sensitivity trop elevated at 31, down to 29.9 on repeat -Patient is asymptomatic and without acute ECG changes -Likely demand ischemia in the setting of sepsis (5) Parkinson's disease with neurogenic orthostatic hypotension: Plan: -Stable -Patient's has mentioned continue issues with swallowing pills and food -Speech therapy eval completed as described above -Continue Carbidopa-Levodopa and Donepezil -Continue Fludrocortisone -Fall precautions (6) Depression: Plan: -Continue venlafaxine (7) PAF (paroxysmal atrial fibrillation): Plan: -Stable, HR normal -Not on chronic anticoagulation due to bleeding risk from recurrent falls (8) Hypokalemia: Plan: Potassium of 3.5 today, continue KCl 40 mEq p.o. daily with daily BMP (9) Hypoxia: Plan: Episode of hypoxia requiring 2LNC 11/23, repeat CXR ordered Perhaps due to aspiration, currently on ceftriaxone with improvement in WBC count, MRSA nares negative Plan Continued management of sepsis suspected secondary to UTI with IV antibiotics, ultimately for transition to p.o. antibiotics on discharge Admission and Anticipated Discharge Date Admission Date: November 21, 2022 Subjective Patient without any acute events overnight, denies chest pain, SOB, nausea, abdominal pain. No fevers overnight. Episode of hypoxia this afternoon requiring 2LNC Review of Systems Review of Systems: All systems reviewed & are unremarkable except as noted in Subjective Physical Exam Constitutional: WD/WN, vitals as above Respiratory: normal respiratory effort, lungs clear to auscultation Cardiovascular: Heart rate irregularly irregular, no murmurs, no edema Gastrointestinal (Abdomen): normal bowel sounds, soft, nontender, no hepatosplenomegaly Skin: no rashes, warm and dry Psychiatric: Orientation: alert, oriented to person and oriented to place Results & Data Results & Data ([facility]) Vital Signs (Past 12 Hours) Vital Signs Temp Pulse Pulse Resp BP Pulse Ox O2 Del Method 11/23/22 11:40 36.6 C 81 20 158/79 H 93 Room Air 11/23/22 07:55 77 11/23/22 07:19 36.4 C L 80 16 163/85 H 90 Room Air 11/23/22 02:42 37 C 77 18 160/73 H 93 Room Air PG Care Time/CCT Total # of Minutes Spent Total Time Spent with Patient: Total time spent is greater than 50% in coordination of care (as documented) at patient's floor/unit and/or counseling patient: Coding Level of Care Code 20063 SUB INP/OBS CARE 3/50MIN Diagnoses Sepsis A41.9 Sepsis acute organ dysfunction status: without acute organ dysfunction Sepsis type: sepsis due to unspecified organism Complicated UTI (urinary tract infection) N39.0 Metabolic encephalopathy G93.41 Demand ischemia I24.8 Parkinson's disease with neurogenic orthostatic hypotension G90.3 Depression F32.9 PAF (paroxysmal atrial fibrillation) I48.0 Hypokalemia E87.6 Hypoxia R09.02 (1) Sepsis Sepsis acute organ dysfunction status: without acute organ dysfunction Sepsis type: sepsis due to unspecified organism Qualified Code(s): A41.9 - Sepsis, unspecified organism
[2022-11-23] MEDS: SENNA 8.6 MG TAB PO SCH (16:26)
[2022-11-23] MEDS ORDERED: SODIUM CHLORIDE 0.9% 1000ML 1,000 ML IV ONE (16:43)
[2022-11-23] MEDS: ENOXAPARIN INJ 40 MG/0.4 ML SYR SQ SCH (17:25)
[2022-11-23] MEDS: metroNIDAZOLE 500 MG/100 ML BAG IV SCH (18:20)
--- NOTE | 2022-11-23 19:08 | XRay Report ---
XR chest 1V portable CLINICAL HISTORY: hypoxia TECHNIQUE: Single frontal radiograph of the chest was obtained. Comparison: Comparison is made to chest radiograph 11/21/2022 FINDINGS: No lines and tubes are seen. Calcified aortic knob is seen. Bilateral lower lung predominant airspace opacities are seen. Curly B lines and pulmonary vasculature are seen. No evidence of pleural effusio n or pneumothorax. IMPRESSION: 1. Cardiomegaly and moderate pulmonary edema. This represented an increase from prior exam. 2. Bilateral lower lung airspace opacities may represent atelectasis, pneumonia, aspiration, and/or alveolar edema ACT 112: Negative or not required by law. Electronically signed by: Philip Hinton M.D. 11/23/2022 7:05 PM
[2022-11-23] MEDS ORDERED: ACETAMINOPHEN 325 MG TAB PO PRN (19:14)
[2022-11-23] MEDS: cefTRIAXone SODIUM 2,000 MG in DEXTROSE 5% 50 ML IV SCH (21:49)
[2022-11-23] MEDS: clonazePAM 1 MG TAB PO SCH (21:49)
[2022-11-23] MEDS: MELATONIN 3 MG TAB PO SCH (21:51)
[2022-11-23] MEDS: DONEPEZIL HCL 10 MG TAB PO SCH (21:51)
[2022-11-24] MEDS: metroNIDAZOLE 500 MG/100 ML BAG IV SCH ×3 (04:22→17:17)
[2022-11-24 06:55] LABS: Basophils # (auto) 0.02 K/uL (0-0.2); Basophils % (auto) 0.2 %; Eosinophils # (auto) 0.04 K/uL (0-0.50); Eosinophils % (auto) 0.4 %; Hematocrit (blood only) 31.1 % (42.0-52.0); Hemoglobin 10.5 g/dl (14.0-18.0); Immature Granulocytes # (auto) 0.02 K/uL (0.01-0.20); Immature Granulocytes % (auto) 0.2 %; Lymphocytes # (auto) 1.15 K/uL (1.2-3.4); Lymphocytes % (auto) 12.7 %; Mean Corpuscular Hemoglobin 30.9 pg (25.0-34.0); Mean Corpuscular Hgb Conc 33.8 g/dL (32.0-36.0); Mean Corpuscular Volume 91.5 fL (80.0-100.0); Mean Platelet Volume 11.4 fL (9.4-12.4); Monocytes # (auto) 0.75 K/uL (0.11-0.59); Monocytes % (auto) 8.3 %; Neutrophils # (auto) 7.08 K/uL (1.40-6.50); Neutrophils % (auto) 78.2 %; Platelet Count 155 K/uL (130-400); RDW Coefficient of Variation 12.7 % (11.5-14.5); RDW Standard Deviation 42.4 fL (36.4-46.3); White Blood Count 9.06 K/ul (4.8-10.8)
[2022-11-24 08:16] LABS: Albumin Globulin Ratio 1.3 (0.9-2); Albumin Level 3.1 gm/dl (3.4-5.0); BUN Creatinine Ratio 19.1 (10-20); Bilirubin,Total 0.9 mg/dl (0.2-1.0); Creatinine Clr Calc Pharmacy 95.1 ml/min; Est GFR (African American) 104.5 ml/min; Est GFR (Non-African American) 90.2 ml/min; Globulin 2.4 gm/dl (2.5-4.0); Potassium 3.7 mmol/L (3.5-5.1); Total Protein 5.5 gm/dl (6.0-8.3)
--- NOTE | 2022-11-24 08:30 | Hospitalist Progress Note ---
Date of Service November 24, 2022 Assessment & Plan (1) Sepsis: Plan: -2/2 UTI vs. aspiration pneumonia -Patient initially came to the ED with a fever of 101.8, hypotension, AMS and significant leukocytosis -Was given one dose of cefepime, daptomycin, and vancomycin by the ED due to UTI and possible pneumonia on CXR -COVID-19 negative, MRSA nares negative -Speech evaluated for evidence of aspiration events: No abnormalities noted on video swallow 11/22, however with coughing event 11/23 with worsening hypoxia and CXR suggesting possible aspiration pneumonia -UCx growing >100,000 CFU E. coli, continue ceftriaxone, BCx no growth to date -Flagyl added for anaerobic coverage for poss aspiration pneumonia -CT of the abd/pelvis w/o con with several nonobstructive renal calculi but no evidence of hydro or ureteral stone -Urology consulted and appreciate recommendations: Plan for outpatient stone treatment next week with Dr. Purcell unless symptoms not improving with current interventions -Continue to monitor for fevers -BL SCDs and SuB-Q Lovenox for DVT PPX (2) Complicated UTI (urinary tract infection): Plan: see above (3) Aspiration pneumonia: Plan: see above Per family member request, will try soft bite sized diet as patient has a tendency to take very large bites and is concerned that that may be contributing to aspirations Did discuss that aspiration is a suspected sequelae of his Parkinson's, discussed and ultimately decided upon permissive aspiration at this time with the understanding that further aspiration pneumonia events may pop up in the future Aspiration precautions (4) Metabolic encephalopathy: Plan: -In the setting of sepsis suspected 2/2 UTI, in patient with baseline Parkinson's dementia -Patient is without acute neuro defects, alert and oriented this AM but more confused yesterday afternoon suspect element of hospital-related delirium plus metabolic encephalopathy from acute illness/fever -Continue to monitor mental status with care of UTI/aspiration PNA as above (5) Demand ischemia: Plan: -Initial high sensitivity trop elevated at 31, down to 29.9 on repeat -Patient is asymptomatic and without acute ECG changes -Likely demand ischemia in the setting of sepsis (6) Parkinson's disease with neurogenic orthostatic hypotension: Plan: -Stable -Patient's has mentioned continue issues with swallowing pills and food -Speech therapy eval completed, diet changes described above -Continue Carbidopa-Levodopa and Donepezil -Continue Fludrocortisone -Fall and aspiration precautions -Close follow up with Neurologist in [place] (7) Depression: Plan: -Continue venlafaxine (8) PAF (paroxysmal atrial fibrillation): Plan: -Stable, HR normal -Not on chronic anticoagulation due to bleeding risk from recurrent falls (9) Hypokalemia: Plan: Potassium of 3.7 today, continue KCl 40 mEq p.o. daily (10) Hypoxia: Plan: Episode of hypoxia requiring 2LNC 11/23, repeat CXR ordered Perhaps due to aspiration, currently on ceftriaxone and Flagyl with improvement in WBC count, MRSA nares negative Plan Continued management of sepsis suspected secondary to UTI / aspiration PNA with IV antibiotics, ultimately for transition to p.o. antibiotics on discharge Admission and Anticipated Discharge Date Admission Date: November 21, 2022 Subjective Overnight no acute events, however this AM notified by nursing staff that patient converted into AFib with RVR. Given IVF and transferred to PCU for closer monitoring and IV beta blockers if needed. However, HR has remained in low 100s since that time. Patient himself denies palpitations, chest pain, SOB, lightheadedness, and appears more alert and oriented than last evening prior to change of shift. Review of Systems Review of Systems: All systems reviewed & are unremarkable except as noted in Subjective Physical Exam Constitutional: WD/WN, vitals as above Respiratory: normal respiratory effort, lungs clear to auscultation Cardiovascular: Heart rate irregularly irregular, tachycardic, no murmurs, no edema Gastrointestinal (Abdomen): normal bowel sounds, soft, nontender, no hepatosplenomegaly Skin: no rashes, warm and dry Psychiatric: Orientation: alert, oriented to person and oriented to place Results & Data Results & Data ([facility]) Vital Signs (Past 12 Hours) Vital Signs Temp Pulse Pulse Resp BP Pulse Ox O2 Del Method 11/24/22 08:09 97 Nasal Cannula 11/24/22 08:09 99 Nasal Cannula 11/24/22 07:20 36.3 C L 105 H 20 129/75 99 Nasal Cannula 11/23/22 20:00 Nasal Cannula 11/23/22 22:06 90 11/24/22 03:12 36.8 C 115 H 16 112/65 96 Nasal Cannula 11/23/22 22:22 37.4 C 88 16 160/80 H 92 Nasal Cannula O2 Flow Rate 03/12/23 08:09 2 11/24/22 08:09 3 11/24/22 07:20 4 11/23/22 20:00 4 11/23/22 22:06 11/24/22 03:12 4 11/23/22 22:22 2 PG Care Time/CCT Total # of Minutes Spent Total Time Spent with Patient: Total time spent is greater than 50% in coordination of care (as documented) at patient's floor/unit and/or counseling patient: Coding Level of Care Code 73457 SUB INP/OBS CARE 3/50MIN Diagnoses Sepsis A41.9 Sepsis acute organ dysfunction status: without acute organ dysfunction Sepsis type: sepsis due to unspecified organism Complicated UTI (urinary tract infection) N39.0 Aspiration pneumonia J69.0 Metabolic encephalopathy G93.41 Demand ischemia I24.8 Parkinson's disease with neurogenic orthostatic hypotension G90.3 Depression F32.9 PAF (paroxysmal atrial fibrillation) I48.0 Hypokalemia E87.6 Hypoxia R09.02 (1) Sepsis Sepsis acute organ dysfunction status: without acute organ dysfunction Sepsis type: sepsis due to unspecified organism Qualified Code(s): A41.9 - Sepsis, unspecified organism
[2022-11-24] MEDS: ATORVASTATIN 20 MG TAB PO SCH (08:50)
[2022-11-24] MEDS: POLYETHYLENE (MIRALAX) 17 GM PACK PO SCH (08:50)
[2022-11-24] MEDS: FLUDROCORTISONE ACETATE 0.1 MG TAB PO SCH (08:50)
[2022-11-24] MEDS: POTASSIUM CHLORIDE CRTAB 20 MEQ TABCR PO SCH (08:50)
[2022-11-24] MEDS: CARBIDOPA/LEVODOPA 25/100MG TAB PO SCH ×4 (08:50→20:01)
[2022-11-24] MEDS: LEVOTHYROXINE SODIUM 50 MCG TABLET PO SCH (08:50)
[2022-11-24] MEDS: MIDODRINE HCL 2.5 MG TAB PO SCH ×3 (08:50→16:58)
[2022-11-24] MEDS: SENNA 8.6 MG TAB PO SCH (08:50)
[2022-11-24] MEDS: VENLAFAXINE HCL XR 37.5 MG CAPXR PO SCH (08:50)
[2022-11-24] MEDS ORDERED: SODIUM CHLORIDE 0.9% 1000ML 500 ML IV ONE (10:33)
[2022-11-24] MEDS: METOPROLOL TARTRATE 1 MG/ML VIAL IV PRN ×2 (12:31→17:19)
[2022-11-24] MEDS: ENOXAPARIN INJ 40 MG/0.4 ML SYR SQ SCH (17:17)
[2022-11-24] MEDS: DONEPEZIL HCL 10 MG TAB PO SCH (20:01)
[2022-11-24] MEDS: MELATONIN 3 MG TAB PO SCH (20:01)
[2022-11-24] MEDS: cefTRIAXone SODIUM 2,000 MG in DEXTROSE 5% 50 ML IV SCH (20:01)
[2022-11-24] MEDS: clonazePAM 1 MG TAB PO SCH (20:01)
[2022-11-25] MEDS: metroNIDAZOLE 500 MG/100 ML BAG IV SCH ×3 (03:13→16:56)
[2022-11-25 06:45] LABS: Hematocrit (blood only) 29.7 % (42.0-52.0); Hemoglobin 10.3 g/dl (14.0-18.0); Mean Corpuscular Hemoglobin 31.3 pg (25.0-34.0); Mean Corpuscular Hgb Conc 34.7 g/dL (32.0-36.0); Mean Corpuscular Volume 90.3 fL (80.0-100.0); Mean Platelet Volume 11.2 fL (9.4-12.4); Platelet Count 160 K/uL (130-400); RDW Coefficient of Variation 12.8 % (11.5-14.5); RDW Standard Deviation 41.9 fL (36.4-46.3); Red Blood Count 3.29 M/uL (4.70-6.10); White Blood Count 6.66 K/ul (4.8-10.8)
[2022-11-25 07:04] LABS: Albumin Globulin Ratio 1.2 (0.9-2); Albumin Level 2.9 gm/dl (3.4-5.0); BUN Creatinine Ratio 23.1 (10-20); Bilirubin,Total 0.9 mg/dl (0.2-1.0); Calcium 7.9 mg/dl (8.5-10.1); Creatinine Clr Calc Pharmacy 99.5 ml/min; Est GFR (African American) 106.5 ml/min; Est GFR (Non-African American) 91.9 ml/min; Globulin 2.4 gm/dl (2.5-4.0); Potassium 3.7 mmol/L (3.5-5.1); Total Protein 5.3 gm/dl (6.0-8.3)
--- NOTE | 2022-11-25 08:56 | XRay Report ---
SINGLE VIEW CHEST CLINICAL HISTORY: Pulmonary edema. FINDINGS: An AP, portable, upright chest radiograph is compared to study dated 11/23/2022 and correlat ed with chest CT dated 04/13/2021. The heart is enlarged noting atherosclerotic calcification of the t horacic aorta. There is pulmonary vascular congestion. Bilateral airspace opacities likely representi ng pulmonary edema. There are layering pleural effusions with dependent consolidation. No pneumothora x is seen. The skeletal structures are osteopenic. The bony thorax is grossly intact. Residual enteri c contrast is seen in the left colon below the diaphragm. IMPRESSION: 1. Cardiomegaly with evidence of congestive failure and pulmonary edema. This is unchanged to modestl y worsened as compared to 11/23/2022. 2. Layering pleural effusions with dependent consolidation. ACT 112: Negative or not required by law. Electronically signed by: Edi Wood M.D. 11/25/2022 8:54 AM
[2022-11-25] MEDS: MIDODRINE HCL 2.5 MG TAB PO SCH ×3 (11:33→16:56)
[2022-11-25] MEDS: ATORVASTATIN 20 MG TAB PO SCH (11:33)
[2022-11-25] MEDS: FLUDROCORTISONE ACETATE 0.1 MG TAB PO SCH (11:33)
[2022-11-25] MEDS: SENNA 8.6 MG TAB PO SCH (11:33)
[2022-11-25] MEDS: CARBIDOPA/LEVODOPA 25/100MG TAB PO SCH ×4 (11:33→20:42)
[2022-11-25] MEDS: POTASSIUM CHLORIDE CRTAB 20 MEQ TABCR PO SCH (11:33)
[2022-11-25] MEDS: linaCLOtide 72 MCG CAPSULE PO SCH (11:33)
[2022-11-25] MEDS: POLYETHYLENE (MIRALAX) 17 GM PACK PO SCH (11:33)
[2022-11-25] MEDS: LEVOTHYROXINE SODIUM 50 MCG TABLET PO SCH (11:33)
[2022-11-25] MEDS: VENLAFAXINE HCL XR 37.5 MG CAPXR PO SCH (11:33)
--- NOTE | 2022-11-25 14:49 | Hospitalist Progress Note ---
Date of Service November 25, 2022 Assessment & Plan (1) Sepsis: Plan: -2/2 UTI vs. aspiration pneumonia -Patient initially came to the ED with a fever of 101.8, hypotension, AMS and significant leukocytosis -Was given one dose of cefepime, daptomycin, and vancomycin by the ED due to UTI and possible pneumonia on CXR -COVID-19 negative, MRSA nares negative -Speech evaluated for evidence of aspiration events: No abnormalities noted on video swallow 11/22, however with coughing event 11/23 with worsening hypoxia and CXR suggesting possible aspiration pneumonia -UCx growing >100,000 CFU E. coli, continue ceftriaxone, BCx no growth to date -Flagyl added for anaerobic coverage for poss aspiration pneumonia -CT of the abd/pelvis w/o con with several nonobstructive renal calculi but no evidence of hydro or ureteral stone -Urology consulted and appreciate recommendations: Plan for outpatient stone treatment next week with Dr. Purcell unless symptoms not improving with current interventions -Continue to monitor for fevers, has not had fever in the recent past -BL SCDs and heparin gtt. for DVT prophylaxis (2) Complicated UTI (urinary tract infection): Plan: see above (3) Aspiration pneumonia: Plan: see above Per family member request, will try soft bite sized diet as patient has a tendency to take very large bites and is concerned that that may be contributing to aspirations Did discuss that aspiration is a suspected sequelae of his Parkinson's, discussed and ultimately decided upon permissive aspiration at this time with the understanding that further aspiration pneumonia events may pop up in the future and that we can address them as they come Aspiration precautions Continue Flagyl which was added for anaerobic coverage on 11/23 (4) Metabolic encephalopathy: Plan: -In the setting of sepsis suspected 2/2 UTI, in patient with baseline Par kinson's dementia -Patient is without acute neuro defects, alert and oriented this AM but more confused yesterday afternoon suspect element of hospital-related delirium plus metabolic encephalopathy from acute illness/fever -Continue to monitor mental status with care of UTI/aspiration PNA as above (5) Demand ischemia: Plan: -Initial high sensitivity trop elevated at 31, down to 29.9 on repeat -Patient is asymptomatic and without acute ECG changes -Likely demand ischemia in the setting of sepsis (6) Parkinson's disease with neurogenic orthostatic hypotension: Plan: -Stable -Patient's has mentioned continue issues with swallowing pills and food -Speech therapy eval completed, diet changes described above -Continue Carbidopa-Levodopa and Donepezil -Continue Fludrocortisone -Fall and aspiration precautions -Close follow up with Neurologist in [place] (7) Depression: Plan: -Continue venlafaxine (8) PAF (paroxysmal atrial fibrillation): Plan: Heart rate [id number] overnight in the setting of acute illness. Cardiology consulted and appreciate recommendations. We will start digoxin, and heparin GTT. Case discussed personally with Dr. Jaimes (9) Hypokalemia: Plan: Potassium of 3.7 again today, continue KCl 40 mEq p.o. daily (10) Hypoxia: Plan: Episode of hypoxia requiring 2LNC 11/23, repeat CXR ordered with some evidence of pulmonary edema, no further fluids at this time Perhaps due to aspiration, currently on ceftriaxone and Flagyl with improvement in WBC count, MRSA nares negative Not currently on supplemental oxygen, continue to monitor and can give diuresis if necessary however trying to avoid given previous fluids were administered for sepsis Plan Continued management of sepsis suspected secondary to UTI / aspiration PNA with IV antibiotics, A-fib with RVR, ultimately for transition to p.o. antibiotics on discharge and per cardiology can consider discharge tomorrow if heart rate under better control Admission and Anticipated Discharge Date Admission Date: November 21, 2022 Review of Systems Review of Systems: All systems reviewed & are unremarkable except as noted in Subjective No worsening in respiratory symptoms overnight. With heart rate [id number] in A- fib on telemetry. Patient denies any chest pain, shortness of breath, abdominal pain today. Subjective placed in review of systems due to computer error Physical Exam Constitutional: WD/WN, vitals as above Respiratory: normal respiratory effort, lungs clear to auscultation Cardiovascular: Heart rate irregularly irregular, tachycardic, no murmurs, no edema Gastrointestinal (Abdomen): normal bowel sounds, soft, nontender, no hepatosplenomegaly Skin: no rashes, warm and dry Psychiatric: Orientation: alert, oriented to person and oriented to place Results & Data Results & Data ([facility]) Vital Signs (Past 12 Hours) Vital Signs Temp Pulse Resp BP BP Pulse Ox O2 Del Method 11/25/22 11:50 36.4 C L 89 20 121/70 94 Room Air 03/13/23 08:00 Room Air 11/25/22 07:26 37.2 C 97 H 17 150/76 H 90 Room Air 11/25/22 04:16 37.7 C H 110 H 16 131/66 89 L Room Air PG Care Time/CCT Total # of Minutes Spent Total Time Spent with Patient: Total time spent is greater than 50% in coordination of care (as documented) at patient's floor/unit and/or counseling patient: Coding Level of Care Code 53767 SUB INP/OBS CARE 3/50MIN Diagnoses Sepsis A41.9 Sepsis acute organ dysfunction status: without acute organ dysfunction Sepsis type: sepsis due to unspecified organism Complicated UTI (urinary tract infection) N39.0 Aspiration pneumonia J69.0 Metabolic encephalopathy G93.41 Demand ischemia I24.8 Parkinson's disease with neurogenic orthostatic hypotension G90.3 Depression F32.9 PAF (paroxysmal atrial fibrillation) I48.0 Hypokalemia E87.6 Hypoxia R09.02 (1) Sepsis Sepsis acute organ dysfunction status: without acute organ dysfunction Sepsis type: sepsis due to unspecified organism Qualified Code(s): A41.9 - Sepsis, unspecified organism
[2022-11-25] MEDS: ENOXAPARIN INJ 40 MG/0.4 ML SYR SQ SCH (16:56)
[2022-11-25] MEDS ORDERED: Heparin IV Adult Wt-Based Standard *NO* Bolus Protocol IV SCH (19:01)
--- NOTE | 2022-11-25 19:07 | Cardiology Consultation ---
Date of Consultation November 25, 2022 Assessment & Plan (1) PAF (paroxysmal atrial fibrillation): (2) Elevated troponin: (3) Aspiration pneumonia: Plan ASSESSMENT/PLAN: 1. Paroxysmal atrial fibrillation: He appears to be asymptomatic. Has been noted to have AFib in the past. Discussed treatment strategy with patient and his . Recommend conservative management with rate control strategy for now. Avoiding beta-blockers and calcium channel blockers given orthostatic hyp otension. Start digoxin. Recommend digoxin level in 3-5 days. Recommend anticoagulation for stroke risk reduction. This has been avoided in the past due to frequent falls from orthostatic hypotension but now is wheelchair bound and uses a lift to transfer. His brought up the discussion of anticoagulation therapy, stating that she would now be comfortable with him using such. Start heparin drip. Consider Eliquis on discharge, if affordable. Check echo. 2. Elevated troponin: He did not present with acute coronary syndrome. Denies angina. Likely due to demand ischemia from sepsis (fever with UTI versus aspiration pneumonia). Minimally elevated high sensitivity troponin occurred prior to development of AFib during this hospital stay. 3. Aspiration pneumonia: As per primary service. 4. Disposition: Follow-up with Dr. Wu on discharge. Consider outpatient monitor to evaluate heart rate response to digoxin. Patient care communicated with primary hospitalist, Dr. Edmond. Today's visit was 60 minutes in duration. This includes [id number] time, counseling patient/, coordinating care, reviewing records, reviewing studies, and completing documentation. Thank you for allowing me to participate in the care of your patient. Please call for any other questions or concerns. Sincerely, Gary Jaimes M.D. History of Present Illness Reason for Consultation: Atrial fibrillation with RVR Requesting Physician: Rylee Edmond DO Attending Physician: Rylee Edmond DO History of Present Illness Mr. Barba is a pleasant 82-year-old gentleman with a history significant for paroxysmal atrial fibrillation, Parkinson's with dementia, orthostatic hypotension, neurogenic bladder and recurrent UTI. His primary broadcast designer is Dr. Wu. He was diagnosed with atrial fibrillation while hospitalized in August of 2019. He had a syncopal episode and was noted to have atrial fibrillation with rapid ventricular response, which spontaneously converted to sinus rhythm. He has chronic orthostatic hypotension. The decision was made collectively as an outpatient with Dr. Wu, to forego long-term anticoagulation therapy due to frequent falls with orthostatic hypotension. He was hospitalized 11/21/2022 with sepsis and altered mental status. Since September of 2022, he has had multiple episodes of recurrent UTI. The majority of the history obtained for this consultation was supplied by his , who was present at the bedside, and by reviewing records. He was able to answer some questions as well. His states that he had mental status changes acutely. He has baseline dementia but things worsened. With treatment for UTI, symptoms have improved however he is not yet back to baseline from a mental status/cognitive standpoint. He is now wheelchair-bound at home and she uses a lift to transfer him. She is left concerned about anticoagulation therapy and falling now that he does not ambulate on his own. Since he has been wheelchair-bound, he has not been falling. On presentation, he was noted to be in sinus rhythm but on 11/24/2022 at 1:42 a.m., he developed atrial fibrillation with rapid ventricular response. He denies any symptoms of this rhythm change such as palpitations, chest pain, shortness of breath, or any other noticeable change in how he feels. He had minor hematuria with his current UTI but it has since cleared. He has chronic left lower extremity edema following a left leg injury in the past but believes that his swelling has been stable. His agrees. His states that he coughs intermittently when swallowing foods. The consistency of his diet has since changed and he appears to be tolerating it better. They have outpatient speech evaluation pending and has had swallow study here. Review of systems: As above. Review of systems otherwise negative or unobtainable. Family history: Father had PE. Social history: Denies tobacco, alcohol, or drug abuse. Lives at home with his . Has 5 biologic children, 3 with current , Estephania, and 2 from another marriage. His was present at the bedside. Allergies Allergy/AdvReac Type Severity Reaction Status Date / Time No Known Allergies Allergy Verified 11/13/22 19:59 Home Medications Medication Instructions Recorded Confirmed Type atorvastatin 20 mg tablet (Lipitor) 20 mg PO QAM 05/11/19 11/21/22 History cholecalciferol (vitamin D3) 50 2,000 unit PO TID 05/11/19 11/21/22 History mcg (2,000 unit) capsule (Vitamin D3) clonazepam 1 mg tablet 2 mg PO HS #45 tabs 05/11/19 11/21/22 History donepezil 10 mg tablet (Aricept) 10 mg PO HS 05/11/19 11/21/22 History levothyroxine 50 mcg tablet 50 mcg PO QAM 06/30/19 11/21/22 History (Synthroid) melatonin 10 mg tablet 10 mg PO HS 06/30/19 11/21/22 History multivitamin (Daily Multi-Vitamin 1 tab PO PM 06/30/19 11/21/22 History tablet) fludrocortisone 0.1 mg tablet 0.2 mg PO QAM 09/16/21 11/21/22 History sennosides 8.6 mg tablet (Senokot) 17.2 mg PO BID PRN Constipation 09/16/21 11/21/22 History polyethylene glycol 3350 17 8.5 gm PO DAILY #0 grams 09/19/21 11/21/22 Rx gram/dose oral powder (Miralax) midodrine 5 mg tablet 2.5 mg PO TID 01/22/22 11/21/22 History carbidopa 25 mg-levodopa 100 mg 2 tab PO QID 09/27/22 11/21/22 History tablet hydrocortisone 2.5 % topical cream 1 applic EXT TID PRN Hemorrhoids 09/27/22 11/21/22 History with perineal applicator (Proctosol HC) ketoconazole 2 % topical cream 1 applic topical BID PRN NEEDED 09/27/22 11/21/22 History venlafaxine 37.5 mg 37.5 mg PO DAILY 09/27/22 11/21/22 History capsule,extended release 24 hr methenamine hippurate 1 gram tablet 1 g PO Q12H #60 tabs 10/25/22 11/21/22 Rx Patient History Medical History (Updated 11/25/22 @ 21:46 by Sánchez Jaimes MD) Adjustment disorder 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 Chronic constipation Closed head injury Depression Hypotension Hypothyroidism Lumbar pain Lumbar post-laminectomy syndrome Prior left L3-4 hemilaminectomy Memory loss Neurogenic bladder PAF (paroxysmal atrial fibrillation) Parkinson's disease Pneumonia Sacral insufficiency fracture Spinal stenosis of lumbar region Syncope Uncontrolled REM sleep behavior disorder Urge incontinence of urine Surgical History History of back surgery History of tonsillectomy 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) Family History Unknown Alzheimer disease Sister Diabetes Cancer Other Family history non-contributory Social History Smoking Status: Never smoker Tobacco Type: Cigarettes Second Hand Exposure: No; Hx Alcohol Use: No Hx Substance Use: No Preferred Language: Burmese Communication Ability: [facility] Assistant Required: No Beliefs That Will Affect Care: None marital status: Current Living Situation: Spouse current occupational status: retired Feels Safe at Home: Yes Assistive Devices: Mechanical Lift, Special Shoe, Walker and Wheelchair Physical Exam Physical Exam: Gen.: No acute distress. Alert. HEENT: Anicteric sclera. Neck: No JVD. No bruits. Normal carotid upstrokes bilaterally. Cardiac: PMI was nondisplaced. No ventricular heave. Irregularly irregular and mildly tachycardic. Normal S1-S2. No murmurs, rubs, or gallops. Pulmonary: Clear to auscultation bilaterally without wheezes, rales, or rhonchi. Abdomen: Soft, nontender, nondistended, with normoactive bowel sounds. No bruits noted. Extremities: 2+ radial pulses bilaterally. 2+ posterior tibialis pulses bilaterally. No significant pitting edema or cyanosis. Results & Data ([facility]) Vital Signs (Past 12 Hours) Vital Signs Temp Pulse Resp BP BP Pulse Ox O2 Del Method 11/25/22 16:01 36.4 C L 93 H 18 119/79 93 Room Air 11/25/22 11:50 36.4 C L 89 20 121/70 94 Room Air 11/25/22 08:00 Room Air 11/25/22 07:26 37.2 C 97 H 17 150/76 H 90 Room Air Laboratory Results Laboratory Results - last 24 hr 11/25/22 11/25/22 11/25/22 05:54 05:54 19:52 WBC 6.66 RBC 3.29 L Hgb 10.3 L Hct 29.7 L MCV 90.3 MCH 31.3 MCHC 34.7 RDW Std Deviation 41.9 RDW Coeff of Imelda 12.8 Plt Count 160 MPV 11.2 APTT 37.7 H PTT Ratio 1.4 Sodium 137 Potassium 3.7 Chloride 103 Carbon Dioxide 29 Anion Gap 5 BUN 15 Creatinine 0.65 Est Cr Clr Drug Dosing 99.5 Est GFR ( Amer) 106.5 Est GFR (Non-Af Amer) 91.9 BUN/Creatinine Ratio 23.1 H Glucose 90 Calcium 7.9 L Total Bilirubin 0.9 AST 25 ALT 8 Alkaline Phosphatase 79 Total Protein 5.3 L Albumin 2.9 L Globulin 2.4 L Albumin/Globulin Ratio 1.2 Diagnostic Findings Telemetry personally reviewed: Initially sinus rhythm with PACs that converted into atrial fibrillation with RVR on 11/24/2022 at 1:42 a.m.. He has remained in AFib, mostly with rapid heart rate since then. Chart reviewed including outpatient cardiology notes and 2019 hospital discharge summary. History and physical and hospitalist progress notes reviewed. ECG personally reviewed: ECG 11/21/2022 at 1:06 p.m.: Probable sinus rhythm with PACs in a bigeminal pattern 82 bpm. ECG 11/25/2022 at 11:11 a.m.: AFib RVR 105 bpm. Echo 01/26/2021: Normal LV size, wall motion, systolic function. EF 60-65%. Moderate left atrial dilation. No significant valvular abnormalities. Very small pericardial effusion. Normal RVSP. Holter 08/23/2021: Sinus rhythm with PACs. Chest x-ray 11/25/2022: Bilateral airspace opacities per Radiology. Pulmonary vascular congestion. Upon personal review, pleural effusions noted. Medications Administered Current Inpatient Medications Acetaminophen (Acetaminophen 325 Mg Tab) 650 mg PO Q4H PRN PRN Reason: Fever Stop: 12/23/22 19:13 Last Admin: 11/23/22 21:49 Dose: 650 mg Albuterol (Albut/Ipratrop 3mg/0.5mg Neb 3 Ml Vial) 3 ml NEB QIDR PRN; Protocol PRN Reason: wheezing Stop: 12/21/22 18:59 Atorvastatin Calcium (Atorvastatin 20 Mg Tab) 20 mg PO QAM [facility] Stop: 12/22/22 08:59 Last Admin: 11/25/22 11:33 Dose: 20 mg Carbidopa/Levodopa (Carbidopa/Levodopa 25/100mg Tab) 2 tab PO QID [facility] Stop: 12/21/22 20:59 Last Admin: 11/25/22 20:42 Dose: 2 tab Clonazepam (Clonazepam 1 Mg Tab) 2 mg PO [facility] Stop: 12/21/22 20:59 Last Admin: 11/25/22 20:47 Dose: 2 mg Digoxin (Digoxin 0.125 Mg Tab) 0.125 mg PO DAILY@1600 [facility] Stop: 12/26/22 15:59 Donepezil HCl (Donepezil Hcl 10 Mg Tab) 10 mg PO [facility] Stop: 12/21/22 20:59 Last Admin: 11/25/22 20:43 Dose: 10 mg Fludrocortisone Acetate (Fludrocortisone Acetate 0.1 Mg Tab) [facility]: 12/22/22 08:59 Last Admin: 11/25/22 11:33 Dose: 0.2 mg Ceftriaxone Sodium 2,000 mg/ (Dextrose) 70 mls @ 100 mls/hr IV Q24H [facility]; Protocol Stop: 12/01/22 20:59 Last Infusion: 11/25/22 21:29 Dose: Infused Metronidazole (Flagyl) 500 mg in 100 mls @ 100 mls/hr IV Q8H [facility] Stop: 11/30/22 17:59 Last Infusion: 11/25/22 18:28 Dose: Infused Heparin Sodium/Dextrose (Heparin Sodium/Dextrose) 25,000 units in 500 mls @ 29 mls/hr IV .[id number] [facility]; Protocol Stop: 12/25/22 19:29 Last Admin: 11/25/22 21:30 Dose: 1,450 units/hr, 29 mls/hr Levothyroxine Sodium (Levothyroxine Sodium 50 Mcg Tablet) [facility] Stop: 12/22/22 08:59 Last Admin: 11/25/22 11:33 Dose: 50 mcg Linaclotide (Linaclotide 72 Mcg Capsule) 72 mcg PO DAILY [facility] Stop: 12/25/22 08:59 Last Admin: 11/25/22 11:33 Dose: 72 mcg Melatonin (Melatonin 3 Mg Tab) 9 mg PO [facility] Stop: 12/21/22 20:59 Last Admin: 11/25/22 20:47 Dose: 9 mg Metoprolol Tartrate (Metoprolol Tartrate 1 Mg/Ml Vial) 2.5 mg IV Q4 PRN PRN Reason: Tachycardia Stop: 12/24/22 11:59 Last Admin: 11/24/22 17:19 Dose: 2.5 mg Midodrine (Midodrine Hcl 2.5 Mg Tab) 2.5 mg PO 0800,1200,1700 [facility] Stop: 12/23/22 07:59 Last Admin: 11/25/22 16:56 Dose: 2.5 mg Polyethylene Glycol (Polyethylene (Miralax) 17 Gm Pack) 17 gm PO DAILY [facility] Stop: 12/23/22 10:14 Last Admin: 11/25/22 11:33 Dose: 17 gm Potassium Chloride (Potassium Chloride Crtab 20 Meq Tabcr) 40 meq PO QAM [facility] Stop: 12/22/22 09:29 Last Admin: 11/25/22 11:33 Dose: 40 meq Sennosides (Senna 8.6 Mg Tab) 17.2 mg PO QAM [facility] Stop: 12/23/22 15:29 Last Admin: 11/25/22 11:33 Dose: 17.2 mg Venlafaxine HCl (Venlafaxine Hcl Xr 37.5 Mg Capxr) 37.5 mg PO DAILY [facility] Stop: 12/22/22 08:59 Last Admin: 11/25/22 11:33 Dose: 37.5 mg PG Care Time/CCT Total # of Minutes Spent Total Time Spent with Patient: Total time spent is greater than 50% in coordination of care (as documented) at patient's floor/unit and/or counseling patient: Coding Level of Care Code 03090 INT INP/OBS CARE 2/55MIN Diagnoses PAF (paroxysmal atrial fibrillation) I48.0 Elevated troponin R77.8 Aspiration pneumonia J69.0
[2022-11-25] MEDS ORDERED: DIGOXIN 0.125 MG TAB PO ONE (19:15)
[2022-11-25] MEDS: DONEPEZIL HCL 10 MG TAB PO SCH (20:43)
[2022-11-25] MEDS: clonazePAM 1 MG TAB PO SCH (20:47)
[2022-11-25] MEDS: MELATONIN 3 MG TAB PO SCH (20:47)
[2022-11-25] MEDS: cefTRIAXone SODIUM 2,000 MG in DEXTROSE 5% 50 ML IV SCH (20:47)
[2022-11-25 20:51] LABS: Partial Thromboplastin Ratio 1.4; Partial Thromboplastin Time 37.7 Seconds (21.0-31.0)
[2022-11-25] MEDS: HEPARIN SODIUM/DEXTROSE 25,000 UNITS/500 ML BAG IV SCH (21:30)
[2022-11-26] MEDS: metroNIDAZOLE 500 MG/100 ML BAG IV SCH ×3 (02:25→17:40)
[2022-11-26 06:51] LABS: Partial Thromboplastin Ratio 3.4
[2022-11-26 06:57] LABS: Partial Thromboplastin Time 92.5 Seconds (21.0-31.0)
[2022-11-26] MEDS: VENLAFAXINE HCL XR 37.5 MG CAPXR PO SCH (08:09)
[2022-11-26] MEDS: LEVOTHYROXINE SODIUM 50 MCG TABLET PO SCH (08:09)
[2022-11-26] MEDS: CARBIDOPA/LEVODOPA 25/100MG TAB PO SCH ×4 (08:09→20:00)
[2022-11-26] MEDS: FLUDROCORTISONE ACETATE 0.1 MG TAB PO SCH (08:09)
[2022-11-26] MEDS: ATORVASTATIN 20 MG TAB PO SCH (08:09)
[2022-11-26] MEDS: SENNA 8.6 MG TAB PO SCH (08:09)
[2022-11-26] MEDS: linaCLOtide 72 MCG CAPSULE PO SCH (08:09)
[2022-11-26] MEDS: MIDODRINE HCL 2.5 MG TAB PO SCH ×3 (08:09→16:17)
[2022-11-26] MEDS: POTASSIUM CHLORIDE CRTAB 20 MEQ TABCR PO SCH (08:21)
[2022-11-26] MEDS: POLYETHYLENE (MIRALAX) 17 GM PACK PO SCH (08:46)
--- NOTE | 2022-11-26 09:55 | Cardiology Progress Note ---
Date of Service November 26, 2022 Assessment & Plan (1) PAF (paroxysmal atrial fibrillation): (2) Elevated troponin: (3) Aspiration pneumonia: (4) Pericardial effusion: Plan ASSESSMENT/PLAN: 1. Paroxysmal atrial fibrillation: Asymptomatic. Has been noted to have AFib in the past. Heart rate trend on telemetry has improved after initial dose of digoxin. Continue digoxin 125 mcg daily. Heart rate acceptable, especially for someone that is sedentary. Avoiding beta-blockers and calcium channel blockers given orthostatic hypotension. Recommend digoxin level in 2-4 days. Recommend anticoagulation for stroke risk reduction. This has been avoided in the past due to frequent falls from orthostatic hypotension but now is wheelchair bound and uses a lift to transfer. His brought up the discussion of anticoagulation therapy, stating that she would now be comfortable with him using such. Continue heparin drip. Consider Eliquis on discharge, if affordable. 2. Elevated troponin: He did not present with acute coronary syndrome. Denies angina. Likely due to demand ischemia from sepsis (fever with UTI versus aspiration pneumonia). Minimally elevated high sensitivity troponin occurred prior to development of AFib during this hospital stay. 3. Aspiration pneumonia: As per primary service. 4. Pericardial effusion: Chronic. Small. No significant hemodynamic effect noted. Can be monitored as an outpatient with his primary transfer table operator, Dr. Wu. 5. Disposition: Follow-up with Dr. Wu on discharge. Consider outpatient monitor to evaluate heart rate response to digoxin. Patient care communicated with primary hospitalist, Dr. Shin. Admission and Anticipated Discharge Date Admission Date: November 21, 2022 Subjective He has no particular complaints today. He denies chest pain, shortness of breath, or palpitations. He tolerated digoxin yesterday. He was alone in his hospital room. Physical Exam Physical Exam: Gen.: No acute distress. Alert. HEENT: Anicteric sclera. Neck: No JVD. Cardiac: PMI was nondisplaced. No ventricular heave. Irregularly irregular with normal rate. Normal S1-S2. No murmurs, rubs, or gallops. Pulmonary: Clear to auscultation bilaterally without wheezes, rales, or rhonchi. Abdomen: Soft, nontender, nondistended, with normoactive bowel sounds. No bruits noted. Extremities: 2+ radial pulses bilaterally. 2+ posterior tibialis pulses bilaterally. No significant pitting edema or cyanosis. Results & Data ([facility]) Vital Signs (Past 12 Hours) Vital Signs Temp Pulse Pulse Resp BP Pulse Ox O2 Del Method 11/26/22 08:00 Room Air 11/26/22 08:00 115 H 11/26/22 07:04 37.0 C 79 19 145/84 H 92 Room Air 11/26/22 03:00 36.6 C 75 16 127/77 90 Room Air 11/25/22 23:00 36.6 C 102 H 20 138/69 90 Room Air Laboratory Results Laboratory Results - last 24 hr 11/25/22 11/26/22 19:52 05:49 APTT 37.7 H 92.5 H* PTT Ratio 1.4 3.4 Diagnostic Findings Telemetry personally reviewed: Atrial fibrillation. Overall, heart rate has improved. Heart rate was in the 90s when reviewing telemetry this morning. No significant pauses. Chart reviewed. Echo 11/26/2022: Normal LV size, wall motion, systolic function. EF 55 to 60%. Severe concentric LVH. Severe left atrial dilation. Mild MR. Small pericardial effusion. Normal RVSP. Medications Administered Current Inpatient Medications Acetaminophen (Acetaminophen 325 Mg Tab) 650 mg PO Q4H PRN PRN Reason: Fever Stop: 12/23/22 19:13 Last Admin: 11/23/22 21:49 Dose: 650 mg Albuterol (Albut/Ipratrop 3mg/0.5mg Neb 3 Ml Vial) 3 ml NEB QIDR PRN; Protocol PRN Reason: wheezing Stop: 12/21/22 18:59 Atorvastatin Calcium (Atorvastatin 20 Mg Tab) 20 mg PO QAM [facility] Stop: 12/22/22 08:59 Last Admin: 11/26/22 08:09 Dose: 20 mg Carbidopa/Levodopa (Carbidopa/Levodopa 25/100mg Tab) 2 tab PO QID [facility] Stop: 12/21/22 20:59 Last Admin: 11/26/22 08:09 Dose: 2 tab Clonazepam (Clonazepam 1 Mg Tab) 2 mg PO HS [facility] Stop: 12/21/22 20:59 Last Admin: 11/25/22 20:47 Dose: 2 mg Digoxin (Digoxin 0.125 Mg Tab) 0.125 mg PO DAILY@1600 [facility] Stop: 12/26/22 15:59 Donepezil HCl (Donepezil Hcl 10 Mg Tab) 10 mg PO HS [facility] Stop: 12/21/22 20:59 Last Admin: 11/25/22 20:43 Dose: 10 mg Fludrocortisone Acetate (Fludrocortisone Acetate 0.1 Mg Tab) 0.2 mg PO QAM [facility] Stop: 12/22/22 08:59 Last Admin: 11/26/22 08:09 Dose: 0.2 mg Ceftriaxone Sodium 2,000 mg/ (Dextrose) 70 mls @ 100 mls/hr IV Q24H [facility]; Protocol Stop: 12/01/22 20:59 Last Infusion: 11/25/22 21:29 Dose: Infused Metronidazole (Flagyl) 500 mg in 100 mls @ 100 mls/hr IV Q8H [facility] Stop: 11/30/22 17:59 Last Infusion: 11/26/22 03:25 Dose: Infused Heparin Sodium/Dextrose (Heparin Sodium/Dextrose) 25,000 units in 500 mls @ 26 mls/hr IV .[id number] [facility]; Protocol Stop: 12/25/22 19:29 Last Titration: 11/26/22 08:00 Dose: 1,300 units/hr, 26 mls/hr Levothyroxine Sodium (Levothyroxine Sodium 50 Mcg Tablet) 50 mcg PO QAM [facility] Stop: 12/22/22 08:59 Last Admin: 11/26/22 08:09 Dose: 50 mcg Linaclotide (Linaclotide 72 Mcg Capsule) 72 mcg PO DAILY [facility] Stop: 12/25/22 08:59 Last Admin: 11/26/22 08:09 Dose: 72 mcg Melatonin (Melatonin 3 Mg Tab) 9 mg PO HS [facility] Stop: 12/21/22 20:59 Last Admin: 11/25/22 20:47 Dose: 9 mg Metoprolol Tartrate (Metoprolol Tartrate 1 Mg/Ml Vial) 2.5 mg IV Q4 PRN PRN Reason: Tachycardia Stop: 12/24/22 11:59 Last Admin: 11/24/22 17:19 Dose: 2.5 mg Midodrine (Midodrine Hcl 2.5 Mg Tab) 2.5 mg PO 0800,1200,1700 [facility] Stop: 12/23/22 07:59 Last Admin: 11/26/22 08:09 Dose: 2.5 mg Polyethylene Glycol (Polyethylene (Miralax) 17 Gm Pack) 17 gm PO DAILY [facility] Stop: 12/23/22 10:14 Last Admin: 11/26/22 08:46 Dose: Not Given Potassium Chloride (Potassium Chloride Crtab 20 Meq Tabcr) 40 meq PO QAM [facility] Stop: 12/22/22 09:29 Last Admin: 11/26/22 08:21 Dose: 40 meq Sennosides (Senna 8.6 Mg Tab) 17.2 mg PO QAM [facility] Stop: 12/23/22 15:29 Last Admin: 11/26/22 08:09 Dose: 17.2 mg Venlafaxine HCl (Venlafaxine Hcl Xr 37.5 Mg Capxr) 37.5 mg PO DAILY [facility] Stop: 12/22/22 08:59 Last Admin: 11/26/22 08:09 Dose: 37.5 mg PG Care Time/CCT Total # of Minutes Spent Total Time Spent with Patient: Total time spent is greater than 50% in coordination of care (as documented) at patient's floor/unit and/or counseling patient: Coding Level of Care Code 04813 SUB INP/OBS CARE 2/35MIN Diagnoses PAF (paroxysmal atrial fibrillation) I48.0 Elevated troponin R77.8 Aspiration pneumonia J69.0 Pericardial effusion I31.39
--- NOTE | 2022-11-26 10:15 | XCELERA ---
[id number]
[2022-11-26 16:05] LABS: Partial Thromboplastin Ratio 1.5
[2022-11-26] MEDS: HEPARIN SODIUM/DEXTROSE 25,000 UNITS/500 ML BAG IV SCH (16:09)
[2022-11-26] MEDS: DIGOXIN 0.125 MG TAB PO SCH (16:17)
--- NOTE | 2022-11-26 19:17 | Hospitalist Progress Note ---
Date of Service November 26, 2022 Assessment & Plan (1) Sepsis: Plan: 2nd to UTI + aspiration pneumonia. Sepsis resolved. Blood cultures negative. (2) Complicated UTI (urinary tract infection): Plan: Catheter associated UTI (uses [place] Catheter chronically). UTI 2nd to e.coli. Day #6 of IV abx - currently on rocephin. D/c abx after tomorrow's dose. PSA noted to be 3 - prostatitis unlikely. UTI also present in the setting of a left-sided ureteral stone - 3mm in size. (3) Aspiration pneumonia: Plan: day #6 of IV abx therapy. video swallow results noted (normal). by 's report has [facility]. appreciate speech therapy assistance/recs. (4) Metabolic encephalopathy: Plan: 2nd to #1/#2/#3 - improved (5) Demand ischemia: Plan: peak HS Trop 31 no evidence of ACS trop elevation likely myocardial demand ischemia in setting of #1 (6) Parkinson's disease with neurogenic orthostatic hypotension: Plan: Continue Carbidopa-Levodopa and Donepezil Continue Fludrocortisone Continue midodrine Fall and aspiration precautions Close follow up with Neurologist in [place] (7) Depression: Plan: Continue venlafaxine (8) PAF (paroxysmal atrial fibrillation): Plan: Rates improved with institution of digoxin. Appreciate cardiology assistance by Dr Jaimes. Currently on heparin infusion. Eliquis cost - no copay - thus, stop heparin tonight and convert to PO Eliquis 5mg BID. Cont telemetry. Recheck lytes in am. Check a TSH in am. Echo findings - preserved EF, no significant valvular disease, small pericardial effusion. (9) Hypokalemia: Plan: replaced resolved repeat level am recent mag level wnl (10) Hypoxia: Plan: 11/23 - transient no recurrent episodes either 2nd aspiration or pulmonary edema or both cont to monitor closely (11) Pericardial effusion: Plan: small about the same size on today's echo as previous echo in 2020 no tamponade physiology can be followed over time (12) Left ureteral calculus: Plan: 3mm likely contributed to increased UTI risk urology has seen - planning outpatient intervention if he does not pass the stone (13) Prostatic hypertrophy: Plan: not on meds for such (14) Hypothyroidism: Plan: cont synthroid repeat TSH am Plan extensively updated home tomorrow? Admission and Anticipated Discharge Date Admission Date: November 21, 2022 Subjective patient sitting in chair near the bedside present tele overnight - a.fib, rates improved - now 90s/low 100s eating fair at best (25% of meals today per flowsheets) coughing occasionally no dyspnea asks about the kidney stone present, recurrent UTIs, etc Review of Systems Review of Systems: gen - no fevers cv - no chest pain pulm - no dyspnea at rest GI - no abd pain or nausea Physical Exam Physical Exam: gen - sitting in chair, NAD neck - no JVD sitting upright at 90 degrees mouth - MMM heart - irregular, rate about 100, s1s2 lungs - mild crackles b/l bases, decreased BS L base, CTA apices b/l, no wheeze abd - soft NT ND BS+ ext - no edema, pulses 2+ b/l Results & Data Results & Data ([facility]) Vital Signs (Past 12 Hours) Vital Signs Temp Pulse Pulse Resp BP BP Pulse Ox 11/26/22 16:17 87 11/26/22 15:55 36.5 C 90 19 146/85 H 95 11/26/22 11:05 36.7 C 95 H 19 139/81 92 11/26/22 08:00 11/26/22 08:00 115 H O2 Del Method 11/26/22 16:17 11/26/22 15:55 Room Air 11/26/22 11:05 Room Air 11/26/22 08:00 Room Air 11/26/22 08:00 Laboratory Results Laboratory Results - last 24 hr 11/25/22 11/26/22 11/26/22 19:52 05:49 14:48 APTT 37.7 H 92.5 H* 41.0 H PTT Ratio 1.4 3.4 1.5 PG Care Time/CCT Total # of Minutes Spent Total Time Spent with Patient: Total time spent is greater than 50% in coordination of care (as documented) at patient's floor/unit and/or counseling patient: Coding Level of Care Code 20560 SUB INP/OBS CARE 3/50MIN Diagnoses Sepsis A41.9 Sepsis acute organ dysfunction status: without acute organ dysfunction Sepsis type: sepsis due to unspecified organism Complicated UTI (urinary tract infection) N39.0 Aspiration pneumonia J69.0 Metabolic encephalopathy G93.41 Demand ischemia I24.8 Parkinson's disease with neurogenic orthostatic hypotension G90.3 Depression F32.9 PAF (paroxysmal atrial fibrillation) I48.0 Hypokalemia E87.6 Hypoxia R09.02 Pericardial effusion I31.39 Left ureteral calculus N20.1 Prostatic hypertrophy N40.0 Hypothyroidism E03.9 (1) Sepsis Sepsis acute organ dysfunction status: without acute organ dysfunction Sepsis type: sepsis due to unspecified organism Qualified Code(s): A41.9 - Sepsis, unspecified organism
[2022-11-26] MEDS: cefTRIAXone SODIUM 2,000 MG in DEXTROSE 5% 50 ML IV SCH (19:56)
[2022-11-26] MEDS: clonazePAM 1 MG TAB PO SCH (20:00)
[2022-11-26] MEDS: DONEPEZIL HCL 10 MG TAB PO SCH (20:01)
[2022-11-26] MEDS: MELATONIN 3 MG TAB PO SCH (20:03)
[2022-11-26] MEDS: APIXABAN 5 MG TABLET PO SCH (20:51)
--- NOTE | 2022-11-26 22:25 | Electrocardiogram Report ---
Test Reason : Blood Pressure : / mmHG Vent. Rate : 105 BPM Atrial Rate : 108 BPM P-R Int : 000 ms QRS Dur : 088 ms QT Int : 344 ms P-R-T Axes : 000 011 021 degrees QTc Int : 455 ms Atrial fibrillation with rapid ventricular response Low voltage QRS Abnormal ECG When compared with ECG of 21-NOV-2022 13:06, Atrial fibrillation has replaced Sinus rhythm Confirmed by Sánchez Jaimes ([id number]) on 11/26/2022 10:25:01 PM Referred By: REFERRED SELF Confirmed By:Sánchez Jaimes
[2022-11-27] MEDS: metroNIDAZOLE 500 MG/100 ML BAG IV SCH ×3 (02:09→19:10)
[2022-11-27] MEDS: LEVOTHYROXINE SODIUM 50 MCG TABLET PO SCH (06:07)
[2022-11-27 06:12] LABS: Hematocrit (blood only) 31.7 % (42.0-52.0); Hemoglobin 10.7 g/dl (14.0-18.0); Mean Corpuscular Hemoglobin 30.7 pg (25.0-34.0); Mean Corpuscular Hgb Conc 33.8 g/dL (32.0-36.0); Mean Corpuscular Volume 91.1 fL (80.0-100.0); Mean Platelet Volume 10.5 fL (9.4-12.4); Platelet Count 196 K/uL (130-400); RDW Coefficient of Variation 12.7 % (11.5-14.5); RDW Standard Deviation 41.9 fL (36.4-46.3); Red Blood Count 3.48 M/uL (4.70-6.10); White Blood Count 4.65 K/ul (4.8-10.8)
[2022-11-27 06:33] LABS: BUN Creatinine Ratio 14.3 (10-20); Calcium 8.2 mg/dl (8.5-10.1); Est GFR (African American) 99.3 ml/min; Est GFR (Non-African American) 85.7 ml/min; Potassium 3.6 mmol/L (3.5-5.1)
[2022-11-27] MEDS: CARBIDOPA/LEVODOPA 25/100MG TAB PO SCH ×4 (07:57→20:42)
[2022-11-27] MEDS: POTASSIUM CHLORIDE CRTAB 20 MEQ TABCR PO SCH (07:58)
[2022-11-27] MEDS: SENNA 8.6 MG TAB PO SCH (07:58)
[2022-11-27] MEDS: MIDODRINE HCL 2.5 MG TAB PO SCH ×3 (07:59→17:03)
[2022-11-27] MEDS: VENLAFAXINE HCL XR 37.5 MG CAPXR PO SCH (07:59)
[2022-11-27] MEDS: linaCLOtide 72 MCG CAPSULE PO SCH (07:59)
[2022-11-27] MEDS: APIXABAN 5 MG TABLET PO SCH ×2 (07:59→20:41)
[2022-11-27] MEDS: ATORVASTATIN 20 MG TAB PO SCH (07:59)
[2022-11-27] MEDS: FLUDROCORTISONE ACETATE 0.1 MG TAB PO SCH (07:59)
[2022-11-27] MEDS: POLYETHYLENE (MIRALAX) 17 GM PACK PO SCH (08:02)
[2022-11-27] MEDS ORDERED: FUROSEMIDE 20 MG TAB PO STA (08:57)
[2022-11-27] MEDS ORDERED: POTASSIUM CHLORIDE CRTAB 20 MEQ TABCR PO STA (12:56)
[2022-11-27 13:20] LABS: Magnesium 1.7 mg/dl (1.7-2.4)
[2022-11-27] MEDS ORDERED: MAGNESIUM SULFATE / D5W 1 GM/100 ML BAG IV ONE (16:06)
[2022-11-27] MEDS: DIGOXIN 0.125 MG TAB PO SCH (17:03)
--- NOTE | 2022-11-27 19:59 | Hospitalist Progress Note ---
Date of Service November 27, 2022 Assessment & Plan (1) Sepsis: Plan: 2nd to UTI + aspiration pneumonia. Sepsis resolved. Blood cultures negative. (2) Complicated UTI (urinary tract infection): Plan: Catheter associated UTI (uses [place] Catheter chronically). UTI 2nd to e.coli. Day #7 of IV abx - stop rocephin after today's dose. PSA noted to be 3 - prostatitis unlikely. UTI also present in the setting of a left-sided ureteral stone - 3mm in size. Likely reasonable to continue PO abx (cefdinir, keflex) until stone has either passed or intervened on by urology. (3) PAF (paroxysmal atrial fibrillation): Plan: Rates had improved with institution of digoxin. Today - HRs had climbed to about 140. While tachy his rhythm appeared to be 2:1 a flutter. When rates would fall the rhythm appeared to be a.fib. I spoke with Dr Jaimes who will re-eval later today. Cont dig as is for now. Cont Eliquis 5mg BID for anticoagulation. Defer additional Rx for a.fib (and/or aflutter) to Dr Jaimes. (4) Aspiration pneumonia: Plan: day #7 of IV abx therapy. can dc IV abx after today's doses. video swallow results noted (normal). by 's report has [facility]. appreciate speech therapy assistance/recs. (5) Metabolic encephalopathy: Plan: 2nd to #1/#2/#3 - improved seems to be at baseline (6) Demand ischemia: Plan: peak HS Trop 31 no evidence of ACS trop elevation likely myocardial demand ischemia in setting of #1 (7) Parkinson's disease with neurogenic orthostatic hypotension: Plan: Continue Carbidopa-Levodopa and Donepezil Continue Fludrocortisone Continue midodrine Fall and aspiration precautions Close follow up with Neurologist in [place] (8) Depression: Plan: Continue venlafaxine (9) Hypokalemia: Plan: replaced resolved gave additional K supplement due to lasix given (10) Hypoxia: Plan: 11/23 - transient no recurrent episodes remains stable in room air either 2nd aspiration or pulmonary edema or both cont to monitor closely (11) Pericardial effusion: Plan: small about the same size on this admission's echo as previous echo in 2020 no tamponade physiology can be followed over time (12) Left ureteral calculus: Plan: 3mm likely contributed to increased UTI risk urology has seen - planning outpatient intervention if he does not spontaneously pass the stone (13) Prostatic hypertrophy: Plan: not on meds for such (14) Hypothyroidism: Plan: cont synthroid TSH 4.2 today (15) Pulmonary edema: Plan: ? of based on cxr he is + I/O balance for the admission, and weight is up several Kgs thus, gave lasix 20mg po x 1 today with good response Plan updated at bedside no discharge today gave additional mag supplementation today due to a.fib issues and low-normal mag level Admission and Anticipated Discharge Date Admission Date: November 21, 2022 Subjective tele overnight - a.fib rates were largely 80s/90s during sleep, low 100s while awake then, about 11am/1130am today, he began to have runs of what may be a.flutter 2:1 with rates ~140 BPM the frequent runs of ?aflutter (vs afib) in the 140s have been present constantly throughout the day since it began despite the above he offers no new complaints he denies palpitations he denies any chest pain or dizziness or lightheadedness at rest was at bedside during the visit - states he is eating more at [facility] more so than typical at home no pulmonary symptoms at this time with small dose of PO lasix he has already produced >1000cc of urine no new issues other than the rhythm/heart rate issues Review of Systems Review of Systems: gen - "when can I go home?" cv - no cp, no palpitations pulm - no cough, no dyspnea GI - no abd pain Physical Exam Physical Exam: gen - sitting in chair, NAD, looks similar to yesterday neck - no JVD sitting upright at 90 degrees mouth - MMM heart - tachy, irregular, s1s2, no murmur lungs - no wheezes, no rales, no increased work of breathing; mildly decreased BS bases only abd - soft NT ND BS+ ext - no edema, pulses 2+ b/l neuro - flat affect/masked facies Results & Data Results & Data Vital Signs (Past 12 Hours) Vital Signs Temp Pulse Pulse Resp BP BP Pulse Ox 11/27/22 16:02 36.3 C L 109 H 19 128/83 92 11/27/22 15:14 89 11/27/22 11:18 36.5 C 99 H 19 153/95 H 93 11/27/22 09:57 11/27/22 08:00 88 O2 Del Method 11/27/22 16:02 Room Air 11/27/22 15:14 11/27/22 11:18 Room Air 11/27/22 09:57 Room Air 11/27/22 08:00 Laboratory Results Laboratory Results - last 24 hr 11/27/22 11/27/22 11/27/22 05:53 05:53 05:53 WBC 4.65 L RBC 3.48 L Hgb 10.7 L Hct 31.7 L MCV 91.1 MCH 30.7 MCHC 33.8 RDW Std Deviation 41.9 RDW Coeff of Imelda 12.7 Plt Count 196 MPV 10.5 Sodium 140 Potassium 3.6 Chloride 103 Carbon Dioxide 31 Anion Gap 6 BUN 11 Creatinine 0.77 Est Cr Clr Drug Dosing 84.0 Est GFR ( Amer) 99.3 Est GFR (Non-Af Amer) 85.7 BUN/Creatinine Ratio 14.3 Glucose 90 Calcium 8.2 L Magnesium 1.7 TSH 4.260 11/27/22 05:53 WBC RBC Hgb Hct MCV MCH MCHC RDW Std Deviation RDW Coeff of Imelda Plt Count MPV Sodium Potassium Chloride Carbon Dioxide Anion Gap BUN Creatinine Est Cr Clr Drug Dosing Est GFR ( Amer) Est GFR (Non-Af Amer) BUN/Creatinine Ratio Glucose Calcium Magnesium Cancelled TSH PG Care Time/CCT Total # of Minutes Spent Total Time Spent with Patient: Total time spent is greater than 50% in coordination of care (as documented) at patient's floor/unit and/or counseling patient: Coding Level of Care Code 48206 SUB INP/OBS CARE 3/50MIN Diagnoses Sepsis A41.9 Sepsis acute organ dysfunction status: without acute organ dysfunction Sepsis type: sepsis due to unspecified organism Complicated UTI (urinary tract infection) N39.0 PAF (paroxysmal atrial fibrillation) I48.0 Aspiration pneumonia J69.0 Metabolic encephalopathy G93.41 Demand ischemia I24.8 Parkinson's disease with neurogenic orthostatic hypotension G90.3 Depression F32.9 Hypokalemia E87.6 Hypoxia R09.02 Pericardial effusion I31.39 Left ureteral calculus N20.1 Prostatic hypertrophy N40.0 Hypothyroidism E03.9 Pulmonary edema J81.1 (1) Sepsis Sepsis acute organ dysfunction status: without acute organ dysfunction Sepsis type: sepsis due to unspecified organism Qualified Code(s): A41.9 - Sepsis, unspecified organism
[2022-11-27] MEDS: MELATONIN 3 MG TAB PO SCH (20:40)
[2022-11-27] MEDS: DONEPEZIL HCL 10 MG TAB PO SCH (20:41)
[2022-11-27] MEDS: clonazePAM 1 MG TAB PO SCH (20:45)
[2022-11-27] MEDS: cefTRIAXone SODIUM 2,000 MG in DEXTROSE 5% 50 ML IV SCH (20:55)
--- NOTE | 2022-11-27 21:03 | Cardiology Progress Note ---
Date of Service November 27, 2022 Assessment & Plan (1) PAF (paroxysmal atrial fibrillation): (2) Elevated troponin: (3) Aspiration pneumonia: (4) Pericardial effusion: Plan ASSESSMENT/PLAN: 1. Paroxysmal atrial fibrillation: Asymptomatic. Persistently in atrial fibrillation during this hospital stay with possible episodes of atrial flutter with more elevated heart rates. Heart rate trend on telemetry has improved after initial dose of digoxin Until possible atrial flutter today. Recommend 12 lead ECG ( discussed with nursing staff ). Continue digoxin 125 mcg daily. Digoxin level tomorrow. Avoiding beta-blockers and calcium channel blockers given orthostatic hypotension. Recommend anticoagulation for stroke risk reduction. This has been avoided in the past due to frequent falls from orthostatic hypotension but now is wheelchair bound and uses a lift to transfer. Tomorrow, depending on heart rate and digoxin level, could consider additional digoxin dose versus medication change. 2. Elevated troponin: He did not present with acute coronary syndrome. Denied angina. Likely due to demand ischemia from sepsis (fever with UTI versus aspiration pneumonia). Minimally elevated high sensitivity troponin occurred prior to development of AFib during this hospital stay. 3. Aspiration pneumonia: As per primary service. 4. Pericardial effusion: Chronic. Small. No significant hemodynamic effect noted. Can be monitored as an outpatient with his primary insurance billing clerk, Dr. Wu. 5. Disposition: Follow-up with Dr. Wu on discharge. Consider outpatient monitor to evaluate heart rate response to digoxin. Patient care communicated with primary hospitalist, Dr. Shin. Plan discussed with patient and his at the bedside. Admission and Anticipated Discharge Date Admission Date: November 21, [address] Shin contacted me this afternoon regarding elevated heart rates. Just prior to 11:00 a.m. today, heart rate became more elevated. Atrial fibrillation had been reasonably controlled with digoxin which was started earlier this hospital stay. He then developed elevated heart rates, at times appeared to be regular, possibly atrial flutter on telemetry. This has been occurring for much of the day today. He is completely asymptomatic. He denies palpitations, chest pain, or shortness of breath. His was present at the bedside. Physical Exam Physical Exam: Gen.: No acute distress. Alert. HEENT: Anicteric sclera. Neck: No JVD. Cardiac: PMI was nondisplaced. No ventricular heave. Irregularly irregular. Normal S1-S2. No murmurs, rubs, or gallops. Pulmonary: Clear to auscultation bilaterally without wheezes, rales, or rhonchi. Abdomen: Soft, nontender, nondistended, with normoactive bowel sounds. No bruits noted. Extremities: 2+ radial pulses bilaterally. 2+ posterior tibialis pulses bilate rally. No significant pitting edema. No cyanosis. Results & Data Vital Signs (Past 12 Hours) Vital Signs Temp Pulse Pulse Resp BP BP Pulse Ox 11/27/22 19:39 36.2 C L 95 H 20 178/100 H 92 11/27/22 16:02 36.3 C L 109 H 19 128/83 92 11/27/22 15:14 89 11/27/22 11:18 36.5 C 99 H 19 153/95 H 93 11/27/22 09:57 O2 Del Method 11/27/22 19:39 Room Air 11/27/22 16:02 Room Air 11/27/22 15:14 11/27/22 11:18 Room Air 11/27/22 09:57 Room Air Intake & Output 11/25/22 11/26/22 11/27/22 11/28/22 06:59 06:59 06:59 06:59 Intake Total 1445 / 1445 885.017 / 856.346 1355.366 / 1107.366 980 / 980 Output Total 675 / 675 1900 / 1900 1300 / 1300 1200 / 1200 Balance 770 / 770 -1014.983 / -1014.983 -192.634 / -192.634 -220 / -220 Weight 188 lb 4.396 oz 183 lb 10.321 oz 186 lb 1.122 oz Laboratory Results Laboratory Results - last 24 hr 11/27/22 11/27/22 11/27/22 05:53 05:53 05:53 WBC 4.65 L RBC 3.48 L Hgb 10.7 L Hct 31.7 L MCV 91.1 MCH 30.7 MCHC 33.8 RDW Std Deviation 41.9 RDW Coeff of Imelda 12.7 Plt Count 196 MPV 10.5 Sodium 140 Potassium 3.6 Chloride 103 Carbon Dioxide 31 Anion Gap 6 BUN 11 Creatinine 0.77 Est Cr Clr Drug Dosing 84.0 Est GFR ( Amer) 99.3 Est GFR (Non-Af Amer) 85.7 BUN/Creatinine Ratio 14.3 Glucose 90 Calcium 8.2 L Magnesium 1.7 TSH 4.260 11/27/22 05:53 WBC RBC Hgb Hct MCV MCH MCHC RDW Std Deviation RDW Coeff of Imelda Plt Count MPV Sodium Potassium Chloride Carbon Dioxide Anion Gap BUN Creatinine Est Cr Clr Drug Dosing Est GFR ( Amer) Est GFR (Non-Af Amer) BUN/Creatinine Ratio Glucose Calcium Magnesium Cancelled TSH Diagnostic Findings Telemetry personally reviewed: Predominantly atrial fibrillation but developed episodes of tachycardia today, which appear regular at times, concerning for atrial flutter with heart rates as high as 130s to 140 bpm. While reviewing telemetry, heart rate was 90s to 130 bpm. Chart reviewed. Labs reviewed: Stable hemoglobin. Stable renal function. Normal TSH. Medications Administered Current Inpatient Medications Acetaminophen (Acetaminophen 325 Mg Tab) 650 mg PO Q4H PRN PRN Reason: Fever Stop: 12/23/22 19:13 Last Admin: 11/23/22 21:49 Dose: 650 mg Albuterol (Albut/Ipratrop 3mg/0.5mg Neb 3 Ml Vial) 3 ml NEB QIDR PRN; Protocol PRN Reason: wheezing Stop: 12/21/22 18:59 Apixaban (Apixaban 5 Mg Tablet) 5 mg PO BID [facility] Stop: 12/26/22 20:59 Last Admin: 11/27/22 20:41 Dose: 5 mg Atorvastatin Calcium (Atorvastatin 20 Mg Tab) 20 mg PO QAM [facility] Stop: 12/22/22 08:59 Last Admin: 11/27/22 07:59 Dose: 20 mg Carbidopa/Levodopa (Carbidopa/Levodopa 25/100mg Tab) 2 tab PO QID [facility] Stop: 12/21/22 20:59 Last Admin: 11/27/22 20:42 Dose: 2 tab Clonazepam (Clonazepam 1 Mg Tab) 2 mg PO HS [facility] Stop: 12/21/22 20:59 Last Admin: 11/27/22 20:45 Dose: 2 mg Digoxin (Digoxin 0.125 Mg Tab) 0.125 mg PO DAILY@1600 [facility] Stop: 12/26/22 15:59 Last Admin: 11/27/22 17:03 Dose: 0.125 mg Donepezil HCl (Donepezil Hcl 10 Mg Tab) 10 mg PO HS [facility] Stop: 12/21/22 20:59 Last Admin: 11/27/22 20:41 Dose: 10 mg Fludrocortisone Acetate (Fludrocortisone Acetate 0.1 Mg Tab) 0.2 mg PO QAM [facility] Stop: 12/22/22 08:59 Last Admin: 11/27/22 07:59 Dose: 0.2 mg Ceftriaxone Sodium 2,000 mg/ (Dextrose) 70 mls @ 100 mls/hr IV Q24H [facility]; Protocol Stop: 12/01/22 20:59 Last Admin: 11/27/22 20:55 Dose: 100 mls/hr Metronidazole (Flagyl) 500 mg in 100 mls @ 100 mls/hr IV Q8H [facility] Stop: 11/30/22 17:59 Last Infusion: 11/27/22 20:51 Dose: Infused Levothyroxine Sodium (Levothyroxine Sodium 50 Mcg Tablet) 50 mcg PO DAILYBB [facility] Stop: 12/27/22 06:29 Last Admin: 11/27/22 06:07 Dose: 50 mcg Linaclotide (Linaclotide 72 Mcg Capsule) 72 mcg PO DAILY [facility] Stop: 12/25/22 08:59 Last Admin: 11/27/22 07:59 Dose: 72 mcg Melatonin (Melatonin 3 Mg Tab) 9 mg PO HS [facility] Stop: 12/21/22 20:59 Last Admin: 11/27/22 20:40 Dose: 9 mg Metoprolol Tartrate (Metoprolol Tartrate 1 Mg/Ml Vial) 2.5 mg IV Q4 PRN PRN Reason: Tachycardia Stop: 12/24/22 11:59 Last Admin: 11/24/22 17:19 Dose: 2.5 mg Midodrine (Midodrine Hcl 2.5 Mg Tab) 2.5 mg PO 0800,1200,1700 [facility] Stop: 12/23/22 07:59 Last Admin: 11/27/22 17:03 Dose: 2.5 mg Polyethylene Glycol (Polyethylene (Miralax) 17 Gm Pack) 17 gm PO DAILY [facility] Stop: 12/23/22 10:14 Last Admin: 11/27/22 08:02 Dose: 17 gm Potassium Chloride (Potassium Chloride Crtab 20 Meq Tabcr) 40 meq PO QAM [facility] Stop: 12/22/22 09:29 Last Admin: 11/27/22 07:58 Dose: 40 meq Sennosides (Senna 8.6 Mg Tab) 17.2 mg PO QAM [facility] Stop: 12/23/22 15:29 Last Admin: 11/27/22 07:58 Dose: 17.2 mg Venlafaxine HCl (Venlafaxine Hcl Xr 37.5 Mg Capxr) 37.5 mg PO DAILY [facility] Stop: 12/22/22 08:59 Last Admin: 11/27/22 07:59 Dose: 37.5 mg PG Care Time/CCT Total # of Minutes Spent Total Time Spent with Patient: Total time spent is greater than 50% in coordination of care (as documented) at patient's floor/unit and/or counseling patient: Coding Level of Care Code 56983 SUB INP/OBS CARE 2/35MIN Diagnoses PAF (paroxysmal atrial fibrillation) I48.0 Elevated troponin R77.8 Aspiration pneumonia J69.0 Pericardial effusion I31.39
[2022-11-27] MEDS ORDERED: ACETAMINOPHEN 325 MG TAB PO PRN (22:00)
[2022-11-28] MEDS: metroNIDAZOLE 500 MG/100 ML BAG IV SCH (01:33)
[2022-11-28] MEDS: LEVOTHYROXINE SODIUM 50 MCG TABLET PO SCH (05:48)
[2022-11-28] MEDS: VENLAFAXINE HCL XR 37.5 MG CAPXR PO SCH (07:58)
[2022-11-28] MEDS: MIDODRINE HCL 2.5 MG TAB PO SCH ×3 (07:58→16:45)
[2022-11-28] MEDS: FLUDROCORTISONE ACETATE 0.1 MG TAB PO SCH (07:58)
[2022-11-28] MEDS: CARBIDOPA/LEVODOPA 25/100MG TAB PO SCH ×3 (07:59→16:39)
[2022-11-28] MEDS: SENNA 8.6 MG TAB PO SCH (07:59)
[2022-11-28] MEDS: ATORVASTATIN 20 MG TAB PO SCH (07:59)
[2022-11-28] MEDS: linaCLOtide 72 MCG CAPSULE PO SCH (07:59)
[2022-11-28] MEDS: APIXABAN 5 MG TABLET PO SCH (07:59)
[2022-11-28] MEDS: POLYETHYLENE (MIRALAX) 17 GM PACK PO SCH (08:02)
[2022-11-28] MEDS: POTASSIUM CHLORIDE CRTAB 20 MEQ TABCR PO SCH (08:02)
[2022-11-28 13:21] LABS: BUN Creatinine Ratio 16.7 (10-20); Calcium 8.8 mg/dl (8.5-10.1); Creatinine Clr Calc Pharmacy 82.9 ml/min; Est GFR (African American) 98.8 ml/min; Est GFR (Non-African American) 85.3 ml/min; Magnesium 1.9 mg/dl (1.7-2.4)
--- NOTE | 2022-11-28 14:25 | Cardiology Progress Note ---
Date of Service November 28, 2022 Assessment & Plan (1) PAF (paroxysmal atrial fibrillation): (2) Elevated troponin: (3) Aspiration pneumonia: (4) Pericardial effusion: Plan ASSESSMENT/PLAN: 1. Paroxysmal atrial fibrillation: Asymptomatic. Persistently in atrial fibrillation during this hospital stay with possible episodes of atrial flutter with more elevated heart rates on 11/27/22. Heart rate acceptable today. Digoxin level pending. Continue digoxin 125 mcg daily. Avoiding beta-blockers and calcium channel blockers given orthostatic hypotension. Recommend anticoagulation for stroke risk reduction. This has been avoided in the past due to frequent falls from orthostatic hypotension but now is wheelchair bound and uses a lift to transfer. Consider outpatient monitor when seen in the cardiology outpatient office in follow-up. 2. Elevated troponin: He did not present with acute coronary syndrome. Denied angina. Likely due to demand ischemia from sepsis (fever with UTI versus aspiration pneumonia). Minimally elevated high sensitivity troponin occurred prior to development of AFib during this hospital stay. 3. Aspiration pneumonia: As per primary service. 4. Pericardial effusion: Chronic. Small. No significant hemodynamic effect noted. Can be monitored as an outpatient with his primary smudger, Dr. Wu. 5. Disposition: Follow-up with Dr. Wu on discharge in 1-2 weeks. Consider outpatient monitor to evaluate heart rate response to digoxin. Patient care communicated with primary hospitalist, Dr. Shin. Plan discussed with patient and his at the bedside. Can be discharged today from a cardiology standpoint. Recommend digoxin level prior to discharge. Admission and Anticipated Discharge Date Admission Date: November 21, 2022 Subjective Patient seen this afternoon. Digoxin level is still pending. He denies chest pain, shortness of breath, palpitations, edema, or bleeding. His was present at the bedside. Physical Exam Physical Exam: Gen.: No acute distress. Alert. HEENT: Anicteric sclera. Neck: No JVD. Cardiac: PMI was nondisplaced. No ventricular heave. Irregularly irregular. Normal heart rate. Normal S1-S2. No murmurs, rubs, or gallops. Pulmonary: Clear to auscultation bilaterally without wheezes, rales, or rhonchi. Abdomen: Soft, nontender, nondistended, with normoactive bowel sounds. No bruits noted. Extremities: 2+ radial pulses bilaterally. 2+ posterior tibialis pulses bilaterally. No significant pitting edema. No cyanosis. Results & Data Vital Signs (Past 12 Hours) Vital Signs Temp Pulse Resp BP BP Pulse Ox O2 Del Method 11/28/22 11:27 36.7 C 77 18 134/83 96 Room Air 11/28/22 08:42 Room Air 11/28/22 07:48 36.6 C 74 18 153/96 H 92 Room Air 11/28/22 04:17 36.7 C 84 22 134/79 91 Room Air Laboratory Results Laboratory Results - last 24 hr 11/28/22 12:45 Sodium 140 Potassium 4.0 Chloride 103 Carbon Dioxide 33 H Anion Gap 4 BUN 13 Creatinine 0.78 Est Cr Clr Drug Dosing 82.9 Est GFR ( Amer) 98.8 Est GFR (Non-Af Amer) 85.3 BUN/Creatinine Ratio 16.7 Glucose 102 H Calcium 8.8 Magnesium 1.9 Diagnostic Findings Telemetry personally reviewed: Atrial fibrillation with reasonable heart rate control. The more elevated heart rates that appeared more regular such as atrial flutter, have subsided. No significant pause. Chart reviewed. ECG personally reviewed 11/27/2022 at 2118: Atrial fibrillation 94 bpm. Medications Administered Current Inpatient Medications Acetaminophen (Acetaminophen 325 Mg Tab) 650 mg PO Q4H PRN PRN Reason: Fever or pain Stop: 12/23/22 19:13 Last Admin: 11/27/22 22:24 Dose: 650 mg Albuterol (Albut/Ipratrop 3mg/0.5mg Neb 3 Ml Vial) 3 ml NEB QIDR PRN; Protocol PRN Reason: wheezing Stop: 12/21/22 18:59 Apixaban (Apixaban 5 Mg Tablet) 5 mg PO BID GILLES Stop: 12/26/22 20:59 Last Admin: 11/28/22 07:59 Dose: 5 mg Atorvastatin Calcium (Atorvastatin 20 Mg Tab) 20 mg PO QAM GILLES Stop: 12/22/22 08:59 Last Admin: 11/28/22 07:59 Dose: 20 mg Carbidopa/Levodopa (Carbidopa/Levodopa 25/100mg Tab) 2 tab PO QID GILLES Stop: 12/21/22 20:59 Last Admin: 11/28/22 12:08 Dose: 2 tab Clonazepam (Clonazepam 1 Mg Tab) 2 mg PO HS GILLES Stop: 12/21/22 20:59 Last Admin: 11/27/22 20:45 Dose: 2 mg Digoxin (Digoxin 0.125 Mg Tab) 0.125 mg PO DAILY@1600 [facility] Stop: 12/26/22 15:59 Last Admin: 11/27/22 17:03 Dose: 0.125 mg Donepezil HCl (Donepezil Hcl 10 Mg Tab) 10 mg PO HS GILLES Stop: 12/21/22 20:59 Last Admin: 11/27/22 20:41 Dose: 10 mg Fludrocortisone Acetate (Fludrocortisone Acetate 0.1 Mg Tab) 0.2 mg PO QAM GILLES Stop: 12/22/22 08:59 Last Admin: 11/28/22 07:58 Dose: 0.2 mg Levothyroxine Sodium (Levothyroxine Sodium 50 Mcg Tablet) 50 mcg PO DAILYBB GILLES Stop: 12/27/22 06:29 Last Admin: 11/28/22 05:48 Dose: 50 mcg Linaclotide (Linaclotide 72 Mcg Capsule) 72 mcg PO DAILY GILLES Stop: 12/25/22 08:59 Last Admin: 11/28/22 07:59 Dose: 72 mcg Melatonin (Melatonin 3 Mg Tab) 9 mg PO HS GILLES Stop: 12/21/22 20:59 Last Admin: 11/27/22 20:40 Dose: 9 mg Metoprolol Tartrate (Metoprolol Tartrate 1 Mg/Ml Vial) 2.5 mg IV Q4 PRN PRN Reason: Tachycardia Stop: 12/24/22 11:59 Last Admin: 11/24/22 17:19 Dose: 2.5 mg Midodrine (Midodrine Hcl 2.5 Mg Tab) 2.5 mg PO 0800,1200,1700 GILLES Stop: 12/23/22 07:59 Last Admin: 11/28/22 12:08 Dose: 2.5 mg Polyethylene Glycol (Polyethylene (Miralax) 17 Gm Pack) 17 gm PO DAILY GILLES Stop: 12/23/22 10:14 Last Admin: 11/28/22 08:02 Dose: 17 gm Potassium Chloride (Potassium Chloride Crtab 20 Meq Tabcr) 40 meq PO QAM GILLES Stop: 12/22/22 09:29 Last Admin: 11/28/22 08:02 Dose: 40 meq Sennosides (Senna 8.6 Mg Tab) 17.2 mg PO QAM GILLES Stop: 12/23/22 15:29 Last Admin: 11/28/22 07:59 Dose: 17.2 mg Venlafaxine HCl (Venlafaxine Hcl Xr 37.5 Mg Capxr) 37.5 mg PO DAILY [facility] Stop: 12/22/22 08:59 Last Admin: 11/28/22 07:58 Dose: 37.5 mg PG Care Time/CCT Total # of Minutes Spent Total Time Spent with Patient: Total time spent is greater than 50% in coordination of care (as documented) at patient's floor/unit and/or counseling patient: Coding Level of Care Code 97587 SUB INP/OBS CARE 2/35MIN Diagnoses PAF (paroxysmal atrial fibrillation) I48.0 Elevated troponin R77.8 Aspiration pneumonia J69.0 Pericardial effusion I31.39
[2022-11-28] MEDS: DIGOXIN 0.125 MG TAB PO SCH (16:38)
--- NOTE | 2022-11-28 16:51 | XRay Report ---
XR chest 1V portable CLINICAL HISTORY: cough, pneumonia, edema; interval change COMPARISON STUDY: Chest radiograph November 25, 2022. FINDINGS: There is no pneumothorax. Small to moderate left and small right pleural effusions persist. Pulmonary edema has slightly improved. Persistent bibasilar opacities are noted. There is cardiomega ly. IMPRESSION: 1. Interstitial pulmonary edema, slightly improved since prior study. 2. Persistent small to moderate left and small right pleural effusions with associated bibasilar opac ities. ACT 112: Negative or not required by law. Electronically signed by: Dax Pozo M.D. 11/28/2022 4:50 PM
--- NOTE | 2022-11-28 17:47 | Discharge Summary ---
Date of Service November 28, 2022 Admission HPI Per Admitting Provider Andrew is an 82 year old male with a PMH significant for Parkinsons disease with dementia, orthostatic hypotension, paroxysmal afib not on anticoagulation due to frequent falls, hypothyroidism, neurogenic bladder (unable to use alpha blockers due to significant orthostatic hypotension), and chronic constipation who presented to the [facility] ED on 11/21/22 with complaints of fevers, foul smelling urine, and increased confusion. In the ED the patient was found to be afebrile, initially hypotensive at 75/45, and stable on RA. Labs were remarkable for a leukocytosis of 19 with left shift of 17, stable Hgb and platelets, stable Cr of 0.97 (baseline appears to be 0.8-0.9), stable electrolytes, glucose of 116, total bili of 1.3 with direct bili of 0.2, otherwise stable LFTs, initial high sensitivity trop of 31, UA showing turbid urine with 2+ protein, trace ketones, 3+ blood, nitrite positive, 3+ leukocyte esterase, > 30 WBCs and 4+ bacteria, and covid negative. Procal was in process at the time of the admission. Chest xray was read as Left retrocardiac opacity may represent atelectasis, pneumonia, and/or aspiration.. Prior to admission the patient was given 2L NSS, a dose of cefepime, a dose of Daptomycin and a dose of Vancomycin. At the time of the exam the patient was resting comfortably in bed in no acute distress with his sitting bedside, history was obtained from both. His , who is his POA and primary caregiver, states that they currently sleep i separate bedrooms as the patient requires a hospital bed. As of last night at approximately 10 pm when she put him to bed he was at his baseline mental status. She states that at his baseline the patient is usually alert, knows his name, close contacts, but will have issues with short term memory, normally he is able to carry a coherent conversation. This am around 10 am when his went to wake him the patient appeared more confused than baseline. She took his temperature and found it to be 101.8 F, she also noticed that his urine smelled foul as well. She states that he had previously been placed on low dose Bactrim for UTI PPX but was taken off and switched to Keflex due to resistance to Bactrim. He was evaluated by Urology who took him off Keflex and switched him to methenamine hippurate. Since started his new medication his has noticed his bowel movements have been very soft but not diarrhea and has not noticed melena or bloody BM's. Since coming to the ED and receiving his initial treatment his thinks his mental status is improving. The patient denies headache, chest pain, SOB, abdominal pain, nausea, and vomiting. His states that the patient has been experiencing increased difficulty swallowing pills and solid food, he has had a non-productive cough over the past few weeks. When asked about possible bed sores or ulcers his states that he previously had a small bed sore on his right buttocks bu this has resoled. We discussed code status, the patient has a living will and his is his POA; the patient is a DNR/DNI. Please refer to Dr. Burris's attestation for any changes to the treatment plan Discharge Exam gen - sitting in chair, NAD, looks similar to yesterday neck - no JVD sitting upright at 90 degrees mouth - MMM heart - tachy, irregular, s1s2, no murmur lungs - no wheezes, no rales, no increased work of breathing; mildly decreased BS bases only abd - soft NT ND BS+ ext - no edema, pulses 2+ b/l neuro - flat affect/masked facies Discharge Data Allergies Allergy/AdvReac Type Severity Reaction Status Date / Time No Known Allergies Allergy Verified 11/13/22 19:59 Consultations 11/22/22 10:15 Consult Urology Routine 11/25/22 09:32 Consult Cardiology Routine Ordered Studies 11/21/22 14:15 CT Abd and Pelvis [CT abd pelvis wo con] Stat 11/22/22 13:00 FL video swallow Routine Hospital Course (1) Sepsis: 2nd to UTI + aspiration pneumonia. Sepsis resolved. Blood cultures negative. (2) Complicated UTI (urinary tract infection): Catheter associated UTI (uses [place] Catheter chronically). UTI 2nd to e.coli. Day #7 of IV abx - stop rocephin after today's dose. PSA noted to be 3 - prostatitis unlikely. UTI also present in the setting of a left-sided ureteral stone - 3mm in size. Likely reasonable to continue PO abx (cefdinir, keflex) until stone has either passed or intervened on by urology. (3) PAF (paroxysmal atrial fibrillation): Rates had improved with institution of digoxin. Today - HRs had climbed to about 140. While tachy his rhythm appeared to be 2:1 a flutter. When rates would fall the rhythm appeared to be a.fib. I spoke with Dr Jaimes who will re-eval later today. Cont dig as is for now. Cont Eliquis 5mg BID for anticoagulation. Defer additional Rx for a.fib (and/or aflutter) to Dr Jaimes. (4) Aspiration pneumonia: day #7 of IV abx therapy. can dc IV abx after today's doses. video swallow results noted (normal). by 's report [facility]. appreciate speech therapy assistance/recs. (5) Metabolic encephalopathy: 2nd to #1/#2/#3 - improved seems to be at baseline (6) Demand ischemia: peak HS Trop 31 no evidence of ACS trop elevation likely myocardial demand ischemia in setting of #1 (7) Parkinson's disease with neurogenic orthostatic hypotension: Continue Carbidopa-Levodopa and Donepezil Continue Fludrocortisone Continue midodrine Fall and aspiration precautions Close follow up with Neurologist in [place] (8) Depression: Continue venlafaxine (9) Hypokalemia: replaced resolved gave additional K supplement due to lasix given (10) Hypoxia: 11/23 - transient no recurrent episodes remains stable in room air either 2nd aspiration or pulmonary edema or both cont to monitor closely (11) Pericardial effusion: small about the same size on this admission's echo as previous echo in 2020 no tamponade physiology can be followed over time (12) Left ureteral calculus: 3mm likely contributed to increased UTI risk urology has seen - planning outpatient intervention if he does not spontaneously pass the stone (13) Prostatic hypertrophy: not on meds for such (14) Hypothyroidism: cont synthroid TSH 4.2 today (15) Pulmonary edema: ? of based on cxr he is + I/O balance for the admission, and weight is up several Kgs thus, gave lasix 20mg po x 1 today with good response Plan updated at bedside no discharge today gave additional mag supplementation today due to a.fib issues and low-normal mag level Discharge Plan Discharge Items Patient Disposition: Home - Self-Care Reason For Visit: fever Discharge Diagnosis: 1. urinary tract infection 2. suspected aspiration pneumonia 3. atrial fibrillation 4. 3mm kidney stone in the left ureter Activity: Resume your previous activity Non-emergency contact: Primary Care Provider and Clerk Typist Call non-emergency contact if: you have any medication questions, your symptoms worsen and you have a fever Follow-up/Referrals: Ravinder Ramon PA-C [Physician Car Wash Attendant] - 12/06/22 (december 06 @ 1045am) Compa Purcell MD [Physician] - (1 week for kidney stone ) Philip Whitfield MD [Primary Care Provider] - ([facility]) Diet: Heart Healthy Diet Texture: Dental soft (bite-sized) Addtl Attending Provider Instructions: Mr Barba, You were treated for a combination of multiple problems while here including urinary tract infection, suspected aspiration pneumonia, rapid atrial fibrillation, and possibly some mild fluid retention in the lungs. We also discovered that you have a small, 3mm kidney stone in your left ureter (the urinary tube that connects one of your kidneys to the bladder). Your urinary tract infection & pneumonia improved with IV antibiotics. You received a full 7-day course of IV antibiotics while here. You were seen by [facility] for your kidney stone. At this time they are hopeful you will pass the stone spontaneously without any intervention. In addition, you developed rapid atrial fibrillation ("a.fib") during the hospitalization. [facility] and recommended digoxin to control the heart rate as well as Eliquis blood thinner to prevent strokes from the a.fib. Recommendations - 1. While awaiting your appointment with urology please take - * cefdinir 300mg twice daily x 7 days, first dose TONIGHT * while on the cefdinir you can HOLD your methenamine; the methenamine can be resumed once the cefdinir is complete 2. For a.fib - * digoxin 0.125mg once daily each afternoon/early evening; start this TOMORROW, 11/29 * Eliquis blood thinner - 5mg twice daily, first dose TONIGHT upon return home * [facility] will be setting you up with a 30-day monitor for your heart * this device will be mailed to your home with instructions on its use * this will tell us how often you are in a.fib, how well it is controlled, etc. * all results will go to Dr Wu and the cardiology team at [facility] 3. For suspected fluid build-up in the lungs please take - * furosemide 20mg each morning on 11/29 and 11/30; this is a diuretic/water pill * take a potassium supplement each morning on 11/29 and 11/30 * after 11/30/22 you can hold any further doses of the furosemide and potassium supplement 4. Please strain all urine at home. If you find the kidney stone please place it in the specimen cup and you can bring that to your urology appointment. The stone will be analyzed to determine what type of stone it is. 5. If you check your pulse (heart rate) at home and your heart rates are consistently higher than 110-[address] Wu/Ravinder KENNEDY)/Dr Jaimes at [facility] know about this. They may adjust your a.fib medications. 6. Please keep your upcoming appointment for the barium swallow test. Follow-up - see separate section Return to [facility] if - * you develop severe diarrhea * you have fevers over 100 degrees * you have worsening shortness of breath * you have any concerns about a.fib * you have bleeding from any location as listed below * any other concerns It was our pleasure to care for you at [facility]! -Dr Aleida Laurent Cleaning Attendant Provider Instructions: Anticoagulant (Blood Thinner) Medication Instructions: Your atrial fibrillation condition is typically treated with an anticoagulant. Anticoagulants will thin your blood to help prevent clot formation in the heart. Your anticoagulant is "ELIQUIS." * You should take your medication exactly as directed. * Never skip a dose. * Never take a double dose. If you miss a dose, take it as soon as you remember. Call your Primary Care doctor or Clerk Typist if you experience any of the following: * Chest Pain * Sudden Shortness of Breath * Rapid or pounding heart beat * Fainting * Dizziness * Cough with blood or bloody sputum * Sweating more than normal * Bruises * Heavy or uncontrolled bleeding * Blood in your urine, stool or vomit * Black or tarry stools * Heavy nose bleeding Pending Studies at Discharge: No Stand-Alone Forms: 0xdata [facility] [address], Smoking Cessation Medications and DC Order Prescriptions: New digoxin [Digitek] 125 mcg (0.125 mg) Tablet 0.125 mg PO DAILY Qty: 30 5RF Rx Instructions: take each afternoon/early evening Eliquis 5 mg Tablet 5 mg PO BID Qty: 60 5RF cefdinir 300 mg capsule 300 mg PO BID 7 Days Qty: 14 0RF Rx Instructions: start PM of 11/28/22. furosemide [Lasix] 20 mg tablet 20 mg PO DAILY PRN (Reason: edema/excess water build-up) Qty: 14 0RF potassium chloride 10 mEq tablet extended release 10 meq PO DAILY PRN (Reason: take only when you use furosemide diuretic) Qty: 14 0RF Continued cholecalciferol (vitamin D3) [Vitamin D3] 2,000 unit capsule 2,000 unit PO TID clonazepam 1 mg tablet 2 mg PO HS Qty: 45 donepezil [Aricept] 10 mg tablet 10 mg PO HS atorvastatin [Lipitor] 20 mg tablet 20 mg PO QAM midodrine 5 mg tablet 2.5 mg PO TID Rx Instructions: take at 8am, 12noon, and 5pm. Do not take last dose of day after 6PM or within 4 hrs of bedtime. multivitamin [Daily Multi-Vitamin] Tablet 1 tab PO PM levothyroxine [Synthroid] 50 mcg tablet 50 mcg PO QAM melatonin 10 mg Tablet 10 mg PO HS sennosides [Senokot] 8.6 mg Tablet 17.2 mg PO BID PRN (Reason: Constipation) fludrocortisone 0.1 mg tablet 0.2 mg PO QAM polyethylene glycol 3350 [Miralax] 17 gram/dose powder 8.5 gm PO DAILY Qty: 0 0RF venlafaxine 37.5 mg capsule,extended release 24hr 37.5 mg PO DAILY carbidopa-levodopa 25-100 mg tablet 2 tab PO QID hydrocortisone [Proctosol HC] 2.5 % cream with perineal applicator 1 applic EXT TID PRN (Reason: Hemorrhoids) ketoconazole 2 % cream 1 applic topical BID PRN (Reason: NEEDED) Discontinued methenamine hippurate 1 gram tablet 1 g PO Q12H Qty: 60 11RF Discharge Orders: Discharge Order (Routine); Ordered 11/28/22 Ordered By: Endy Shin Admission Data Admit Date/Time: 11/21/22 14:45 Attending Provider: nEdy Shin Admit Provider: Endy Burris Primary Care Provider: Philip Whitfield Other Providers: Abdulkadir Cox ; Anderson Heller ; Compa Purcell ; Breanne Manrique ; Josh Cortez ; Hilda Martinez ; Shoshana Shaffer ; Micheal Mistry ; Shad Zavala ; Carmita Pittman ; Rory Elliott ; Donavan Polanco ; Sánchez Jaimes Coding Diagnoses Sepsis A41.9 Sepsis type: sepsis due to unspecified organism Sepsis acute organ dysfunction status: without acute organ dysfunction Complicated UTI (urinary tract infection) N39.0 PAF (paroxysmal atrial fibrillation) I48.0 Aspiration pneumonia J69.0 Metabolic encephalopathy G93.41 Demand ischemia I24.8 Parkinson's disease with neurogenic orthostatic hypotension G90.3 Depression F32.9 Hypokalemia E87.6 Hypoxia R09.02 Pericardial effusion I31.39 Left ureteral calculus N20.1 Prostatic hypertrophy N40.0 Hypothyroidism E03.9 Pulmonary edema J81.1
--- NOTE | 2022-11-30 00:11 | Electrocardiogram Report ---
Test Reason : Blood Pressure : / mmHG Vent. Rate : 094 BPM Atrial Rate : 089 BPM P-R Int : 000 ms QRS Dur : 088 ms QT Int : 360 ms P-R-T Axes : 000 004 030 degrees QTc Int : 450 ms Atrial fibrillation Abnormal ECG When compared with ECG of 25-NOV-2022 11:11, No significant change Confirmed by Sánchez Jaimes ([id number]) on 11/30/2022 12:11:29 AM Referred By: REFERRED SELF Confirmed By:Sánchez Jaimes
== END 2022-11-28 18:55 | disposition home or self-care (01) | DRG 871 ==
LOC: ED 12:34 → SUATTDRO 14:45 → 2N 14:45 → 2S 11-24 10:31

== ENCOUNTER 2022-12-10 04:32 | Inpatient (IN) ==
[2022-12-10 05:21] LABS: Basophils # (auto) 0.04 K/uL (0-0.2); Basophils % (auto) 0.4 %; Hematocrit (blood only) 33.7 % (42.0-52.0); Hemoglobin 11.3 g/dl (14.0-18.0); Immature Granulocytes # (auto) 0.03 K/uL (0.01-0.20); Immature Granulocytes % (auto) 0.3 %; Lymphocytes % (auto) 8.6 %; Mean Corpuscular Hemoglobin 31.1 pg (25.0-34.0); Mean Corpuscular Hgb Conc 33.5 g/dL (32.0-36.0); Mean Corpuscular Volume 92.8 fL (80.0-100.0); Mean Platelet Volume 10.6 fL (9.4-12.4); Monocytes # (auto) 0.87 K/uL (0.11-0.59); Monocytes % (auto) 8.3 %; Neutrophils # (auto) 8.49 K/uL (1.40-6.50); Neutrophils % (auto) 81.4 %; Platelet Count 209 K/uL (130-400); RDW Coefficient of Variation 13.4 % (11.5-14.5); RDW Standard Deviation 45.9 fL (36.4-46.3); Red Blood Count 3.63 M/uL (4.70-6.10); White Blood Count 10.43 K/ul (4.8-10.8)
[2022-12-10 05:40] LABS: Albumin Level 3.4 gm/dl (3.4-5.0); Bilirubin Direct 0.2 mg/dl (0-0.2); Bilirubin,Total 1.2 mg/dl (0.2-1.0); Calcium 8.4 mg/dl (8.6-10.3); Creatinine Clr Calc Pharmacy 95.1 ml/min; Est GFR (African American) 104.5 ml/min; Est GFR (Non-African American) 90.2 ml/min; Magnesium 1.7 mg/dl (1.7-2.4); Potassium 3.4 mmol/L (3.5-5.1); Total Protein 5.9 gm/dl (6.0-8.3)
[2022-12-10 05:45] LABS: Troponin I High Sensitivity 31.3 pg/ml (0-20)
[2022-12-10] MEDS ORDERED: cefTRIAXone SODIUM 2,000 MG/70 ML BAG IV STA (06:35)
[2022-12-10] MEDS ORDERED: SODIUM CHLORIDE 0.9% 1000ML 1,000 ML IV ONE (06:35)
--- NOTE | 2022-12-10 06:38 | Emergency Department Note ---
Impression & Plan Hypoxia, Back pain, Fever, Pleural effusion, Renal colic ED Provider Note NAME: BRODY NUNEZ AGE: 82 SEX: M : 1940 ARRIVES VIA: Walk-In INFORMANT: Patient ED PROVIDER(S): Antonio Mason DO CHIEF COMPLAINT: fever HPI: Patient is an 82-year-old male who presents to the ER for fevers over the past 24 hours. Recent admission over a week ago with a kidney stone and pne umonia. Fevers have been as high as 101-102. notes that he was complaining of some mild shortness of breath yesterday and for the past 3 days back pain in the lower back. Denies any dysuria, urgency, or frequency. No nausea or vomiting. No chest pain or shortness of breath. No other exace rbating or remitting factors. Was given antipyretics. Still has a stone in his ureter per family and is scheduled for the OR. PAST MEDICAL HISTORY:See Below PAST SURGICAL HISTORY:See Below FAMILY HISTORY:See Below SOCIAL HISTORY:See Below HOME MEDICATIONS:See Below ALLERGIES:See Below VITALS:See Below PHYSICAL EXAMINATION: GENERAL: Sitting up in bed, alert, well appearing, well nourished, no distress, non-toxic EYE EXAM: normal conjunctiva. OROPHARYNX: mucous membranes are moist NECK: supple, no nuchal rigidity, no adenopathy, non-tender LUNGS: Clear to auscultation. Normal chest wall mechanics HEART: no murmurs, S1 normal and S2 normal ABDOMEN: abdomen soft, non-tender, normo-active bowel sounds, no masses, no rebound or guarding. UPPER EXTREMITIES: upper extremities are grossly normal. LOWER EXTREMITIES: No pitting edema. NEURO EXAM: Normal sensorium, cranial nerves II-XII grossly intact, normal speech. MEDICAL DECISION MAKING: Patient is an 82-year-old male who presents ER for above-stated complaint. IV was established blood work was obtained. Patient was febrile at 101 at home. Labs show no significant leukocytosis but mild anemia 11.3 consistent with previous. BMP with a mild hypokalemia 3.4. Lactate was normal. Troponin was mildly elevated at 31. Pro-Minor negative. UA appeared to be slightly contaminated with 10-20 epithelial cells but no white cells to really suggest infection. Influenza, COVID and RSV were negative. CT abdomen pelvis shows a stone in the left distal ureter with pulmonary edema and questionable infiltrates. Patient was covered with IV antibiotics. Updated bedside. Discussed with hospitalist admitted for further work-up. Did remain on 2 L nasal cannula as his pulse ox was 88% on room air. Question if this is secondary to infiltrates versus pulmonary edema and effusions. Doubt PE with NOAC. Discussed with hospitalist for further evaluation management and treatment Triage Nursing notes reviewed. Limited review of prior medical records performed Vital Signs: reviewed and remarkable for no significant abnormalities Differential diagnosis: Differential diagnosis includes etiologies such as sepsis, UTI, pneumonia, metabolic, electrolyte abnormalities, cardiac sources, intracerebral event, toxicologic, neurological, as well as others were entertained. ER treatment provided: See below Diagnostics interpreted by me include EKG and cardiac monitoring as listed below: -Cardiac Monitoring: An order was placed for continuous cardiac monitoring. The monitor shows a rate of 80 with afib hythm. -ECG: A-fib rate 87 PVCs Normal axis QTc 493 -Laboratory studies:Interpreted by me as stated above in MDM and shown below. Imaging studies: Xrays: As interpreted by me: Chest x-ray with infiltrates at the bases CTs show: CT abdomen pelvis shows a left distal ureteral stone with bilateral effusions and questionable infiltrates in the lungs Consultation(s): As described in MDM Procedures:none Critical Care: I have personally spent 31 minutes of critical care time in the direct management of this patient. This includes bedside care, interpretation of diagnostic studies, and testing, discussion with consultants, patient, and family members, and other required patient management activities. This 31 minutes is in excess of all separately billable procedures. 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 Chronic constipation Closed head injury Complicated UTI (urinary tract infection) Demand ischemia Depression Elevated troponin Hypokalemia Hypotension Hypothyroidism Left ureteral calculus Lumbar pain Lumbar post-laminectomy syndrome Prior left L3-4 hemilaminectomy Memory loss Metabolic encephalopathy Neurogenic bladder PAF (paroxysmal atrial fibrillation) Parkinson's disease Parkinson's disease with neurogenic orthostatic hypotension Pericardial effusion Pneumonia Prostatic hypertrophy (03/29/13) Pulmonary edema Sacral insufficiency fracture Sepsis Spinal stenosis of lumbar region Syncope Uncontrolled REM sleep behavior disorder Urge incontinence of urine Surgical History History of back surgery History of tonsillectomy 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) Family History Unknown Alzheimer disease Sister Diabetes Cancer Other Family history non-contributory Social History Smoking Status: Never smoker Tobacco Type: Cigarettes Second Hand Exposure: No; Hx Alcohol Use: No Hx Substance Use: No Preferred Language: Swedish Communication Ability: Effective Communication Ability Comment: Patient having difficulty making word choices and sentences (pt states) 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: No Beliefs That Will Affect Care: None marital status: Current Living Situation: Spouse current occupational status: retired Feels Safe at Home: Yes Assistive Devices: Mechanical Lift, Special Shoe, Walker and Wheelchair Allergies Allergies Allergy/AdvReac Type Severity Reaction Status Date / Time No Known Allergies Allergy Verified 12/03/22 14:09 Home Meds Home Medications Medication Instructions Recorded Confirmed atorvastatin 20 mg tablet (Lipitor) 20 mg PO QAM 05/11/19 12/03/22 cholecalciferol (vitamin D3) 50 2,000 unit PO TID 05/11/19 12/03/22 mcg (2,000 unit) capsule (Vitamin D3) clonazepam 1 mg tablet 2 mg PO HS #45 tabs 05/11/19 12/03/22 donepezil 10 mg tablet (Aricept) 10 mg PO HS 05/11/19 12/03/22 levothyroxine 50 mcg tablet 50 mcg PO QAM 06/30/19 12/03/22 (Synthroid) melatonin 10 mg tablet 10 mg PO HS 06/30/19 12/03/22 multivitamin (Daily Multi-Vitamin 1 tab PO PM 06/30/19 12/03/22 tablet) fludrocortisone 0.1 mg tablet 0.2 mg PO QAM 09/16/21 12/03/22 sennosides 8.6 mg tablet (Senokot) 17.2 mg PO BID PRN Constipation 09/16/21 12/03/22 midodrine 5 mg tablet 2.5 mg PO TID 01/22/22 12/03/22 carbidopa 25 mg-levodopa 100 mg 2 tab PO QID 09/27/22 12/03/22 tablet hydrocortisone 2.5 % topical cream 1 applic EXT TID PRN Hemorrhoids 09/27/22 12/03/22 with perineal applicator (Proctosol HC) ketoconazole 2 % topical cream 1 applic topical BID PRN NEEDED 09/27/22 12/03/22 venlafaxine 37.5 mg 37.5 mg PO DAILY 09/27/22 12/03/22 capsule,extended release 24 hr Previous Rx's Medication Instructions Recorded polyethylene glycol 3350 17 8.5 gm PO DAILY #0 grams 09/19/21 gram/dose oral powder (Miralax) apixaban 5 mg tablet (Eliquis) 5 mg PO BID #60 tabs 11/28/22 furosemide 20 mg tablet (Lasix) 20 mg PO DAILY PRN edema/excess 11/28/22 water build-up #14 tabs potassium chloride 10 mEq 10 meq PO DAILY PRN take only when 11/28/22 tablet,extended release you use furosemide diuretic #14 tabs digoxin 250 mcg (0.25 mg) tablet 250 mcg PO DAILY #30 tabs 12/03/22 Results & Data (ED) Vital Signs Vital Signs - 24 hr 12/10/22 04:37 12/10/22 04:55 12/10/22 05:32 Temperature 36.7 C Temperature Source Oral Pulse Rate 85 Pulse Rate from SpO2 Sensor Respiratory Rate 20 16 Respiratory Effort / Characteristics Non-Labored Non-Labored Respiratory Depth Normal Normal Blood Pressure 121/55 L Blood Pressure [Left Arm] 156/68 H Blood Pressure Mean 77 Blood Pressure Mean [Left Arm] 97 Pulse Oximetry 89 L 89 L 99 Oxygen Delivery Method Room Air Room Air Nasal Cannula Oxygen Flow Rate 2 Sepsis New/Unexplained Change in Mental Status N/A Sepsis Action Taken by Nursing No Action Required 12/10/22 04:55 12/10/22 04:55 12/10/22 05:00 Temperature Temperature Source Pulse Rate 76 76 79 Pulse Rate from SpO2 Sensor 74 77 Respiratory Rate 23 22 Respiratory Effort / Characteristics Respiratory Depth Blood Pressure Blood Pressure [Left Arm] Blood Pressure Mean Blood Pressure Mean [Left Arm] Pulse Oximetry 95 97 Oxygen Delivery Method Oxygen Flow Rate Sepsis New/Unexplained Change in Mental Status Sepsis Action Taken by Nursing 12/10/22 05:10 12/10/22 05:20 12/10/22 05:28 Temperature Temperature Source Pulse Rate 81 78 Pulse Rate from SpO2 Sensor 75 74 Respiratory Rate 21 21 Respiratory Effort / Characteristics Respiratory Depth Blood Pressure 156/68 H Blood Pressure [Left Arm] Blood Pressure Mean 97 Blood Pressure Mean [Left Arm] Pulse Oximetry 98 98 Oxygen Delivery Method Oxygen Flow Rate Sepsis New/Unexplained Change in Mental Status Sepsis Action Taken by Nursing 12/10/22 05:28 12/10/22 05:30 12/10/22 05:40 Temperature Temperature Source Pulse Rate 83 84 79 Pulse Rate from SpO2 Sensor 74 74 75 Respiratory Rate 20 19 19 Respiratory Effort / Characteristics Respiratory Depth Blood Pressure Blood Pressure [Left Arm] Blood Pressure Mean Blood Pressure Mean [Left Arm] Pulse Oximetry 100 100 99 Oxygen Delivery Method Oxygen Flow Rate Sepsis New/Unexplained Change in Mental Status Sepsis Action Taken by Nursing 12/10/22 05:50 12/10/22 06:00 12/10/22 06:00 Temperature Temperature Source Pulse Rate 76 78 Pulse Rate from SpO2 Sensor 72 72 Respiratory Rate 19 17 Respiratory Effort / Characteristics Respiratory Depth Blood Pressure 158/81 H Blood Pressure [Left Arm] Blood Pressure Mean 106 Blood Pressure Mean [Left Arm] Pulse Oximetry 98 100 Oxygen Delivery Method Oxygen Flow Rate Sepsis New/Unexplained Change in Mental Status Sepsis Action Taken by Nursing 12/10/22 06:10 12/10/22 07:00 12/10/22 07:37 Temperature Temperature Source Pulse Rate 79 79 Pulse Rate from SpO2 Sensor 72 73 79 Respiratory Rate 17 16 Respiratory Effort / Characteristics Respiratory Depth Blood Pressure 168/80 H Blood Pressure [Left Arm] Blood Pressure Mean 109 Blood Pressure Mean [Left Arm] Pulse Oximetry 99 100 88 L Oxygen Delivery Method Room Air Oxygen Flow Rate 2 Sepsis New/Unexplained Change in Mental Status Sepsis Action Taken by Nursing 12/10/22 07:43 Temperature Temperature Source Pulse Rate Pulse Rate from SpO2 Sensor Respiratory Rate Respiratory Effort / Characteristics Respiratory Depth Blood Pressure Blood Pressure [Left Arm] Blood Pressure Mean Blood Pressure Mean [Left Arm] Pulse Oximetry 99 Oxygen Delivery Method Oxygen Flow Rate 3 Sepsis New/Unexplained Change in Mental Status Sepsis Action Taken by Nursing Laboratory Data 12/10/22 05:04 12/10/22 05:04 Lab Results 12/09/22 12/10/22 12/10/22 Range/Units 19:13 05:04 05:04 WBC 10.43 (4.8-10.8) K/ul RBC 3.63 L (4.70-6.10) M/uL Hgb 11.3 L (14.0-18.0) g/dl Hct 33.7 L (42.0-52.0) % MCV 92.8 (80.0-100.0) fL MCH 31.1 (25.0-34.0) pg MCHC 33.5 (32.0-36.0) g/dL RDW Std Deviation 45.9 (36.4-46.3) fL RDW Coeff of Imelda 13.4 (11.5-14.5) % Plt Count 209 (130-400) K/uL MPV 10.6 (9.4-12.4) fL Immature Gran % (Auto) 0.3 % Neut % (Auto) 81.4 % Lymph % (Auto) 8.6 % Harney % (Auto) 8.3 % Eos % (Auto) 1.0 % Baso % (Auto) 0.4 % Neut # (Auto) 8.49 H (1.40-6.50) K/uL Lymph # (Auto) 0.90 L (1.2-3.4) K/uL Harney # (Auto) 0.87 H (0.11-0.59) K/uL Eos # (Auto) 0.10 (0-0.50) K/uL Baso # (Auto) 0.04 (0-0.2) K/uL Immature Gran # (Auto) 0.03 (0.01-0.20) K/uL Sodium 139 (136-145) mmol/L Potassium 3.4 L (3.5-5.1) mmol/L Chloride 103 (98-107) mmol/L Carbon Dioxide 31 (21-32) mmol/L Anion Gap 5 (3-11) BUN 17 (6-23) mg/dl Creatinine 0.68 (0.6-1.4) mg/dl Est Cr Clr Drug Dosing 95.1 ml/min Est GFR ( Amer) 104.5 ml/min Est GFR (Non-Af Amer) 90.2 ml/min BUN/Creatinine Ratio 25.0 H (10-20) Glucose 106 H (70-99(Fasting)) mg/dl Lactate (0.4-2.0) mmol/L Calcium 8.4 L (8.6-10.3) mg/dl Magnesium 1.7 (1.7-2.4) mg/dl Total Bilirubin 1.2 H (0.2-1.0) mg/dl Direct Bilirubin 0.2 (0-0.2) mg/dl AST 16 (13-39) U/L ALT 15 (7-52) U/L Alkaline Phosphatase 82 (34-104) U/L Troponin I High Sens 31.3 H (0-20) pg/ml Total Protein 5.9 L (6.0-8.3) gm/dl Albumin 3.4 (3.4-5.0) gm/dl Procalcitonin (0-0.5) ng/ml Urine Color Urine Appearance (Clear) Urine pH (4.5-7.5) Ur Specific [place] (1.000-1.030) Urine Protein (Negative) Urine Glucose (UA) (Negative) Urine Ketones (Negative) Urine Blood (Negative) Urine Nitrite (Negative) Urine Bilirubin (Negative) Urine Urobilinogen (Negative) Ur Leukocyte Esterase (Negative) Urine WBC (Auto) (0-5) /hpf Urine RBC (Auto) (0-4) /hpf U Hyaline Cast (Auto) (0-5) /lpf U Epithel Cells (Auto) (0-5) /lpf Urine Bacteria (Auto) (Negative) Urine Crystals Calcium Oxalate Crystal (None Prsent) Urine Mucus (None Prsent) SARS-CoV-2 (PCR) NEGATIVE (Negative) Influenza Type A (PCR) Negative (Neg) Influenza Type B (PCR) Negative (Neg) RSV (RT-PCR) Negative (Neg) SARS-CoV-2, RNA, NAAT (NEGATIVE) 12/10/22 12/10/22 12/10/22 Range/Units 05:04 05:04 05:30 WBC (4.8-10.8) K/ul RBC (4.70-6.10) M/uL Hgb (14.0-18.0) g/dl Hct (42.0-52.0) % MCV (80.0-100.0) fL MCH (25.0-34.0) pg MCHC (32.0-36.0) g/dL RDW Std Deviation (36.4-46.3) fL RDW Coeff of Imelda (11.5-14.5) % Plt Count (130-400) K/uL MPV (9.4-12.4) fL Immature Gran % (Auto) % Neut % (Auto) % Lymph % (Auto) % Harney % (Auto) % Eos % (Auto) % Baso % (Auto) % Neut # (Auto) (1.40-6.50) K/uL Lymph # (Auto) (1.2-3.4) K/uL Harney # (Auto) (0.11-0.59) K/uL Eos # (Auto) (0-0.50) K/uL Baso # (Auto) (0-0.2) K/uL Immature Gran # (Auto) (0.01-0.20) K/uL Sodium (136-145) mmol/L Potassium (3.5-5.1) mmol/L Chloride (98-107) mmol/L Carbon Dioxide (21-32) mmol/L Anion Gap (3-11) BUN (6-23) mg/dl Creatinine (0.6-1.4) mg/dl Est Cr Clr Drug Dosing ml/min Est GFR ( Amer) ml/min Est GFR (Non-Af Amer) ml/min BUN/Creatinine Ratio (10-20) Glucose (70-99(Fasting)) mg/dl Lactate 1.1 (0.4-2.0) mmol/L Calcium (8.6-10.3) mg/dl Magnesium (1.7-2.4) mg/dl Total Bilirubin (0.2-1.0) mg/dl Direct Bilirubin (0-0.2) mg/dl AST (13-39) U/L ALT (7-52) U/L Alkaline Phosphatase (34-104) U/L Troponin I High Sens (0-20) pg/ml Total Protein (6.0-8.3) gm/dl Albumin (3.4-5.0) gm/dl Procalcitonin < 0.05 (0-0.5) ng/ml Urine Color Urine Appearance (Clear) Urine pH (4.5-7.5) Ur Specific [place] (1.000-1.030) Urine Protein (Negative) Urine Glucose (UA) (Negative) Urine Ketones (Negative) Urine Blood (Negative) Urine Nitrite (Negative) Urine Bilirubin (Negative) Urine Urobilinogen (Negative) Ur Leukocyte Esterase (Negative) Urine WBC (Auto) (0-5) /hpf Urine RBC (Auto) (0-4) /hpf U Hyaline Cast (Auto) (0-5) /lpf U Epithel Cells (Auto) (0-5) /lpf Urine Bacteria (Auto) (Negative) Urine Crystals Calcium Oxalate Crystal (None Prsent) Urine Mucus (None Prsent) SARS-CoV-2 (PCR) (Negative) Influenza Type A (PCR) (Neg) Influenza Type B (PCR) (Neg) RSV (RT-PCR) (Neg) SARS-CoV-2, RNA, NAAT NEGATIVE (NEGATIVE) 12/10/22 Range/Units 06:35 WBC (4.8-10.8) K/ul RBC (4.70-6.10) M/uL Hgb (14.0-18.0) g/dl Hct (42.0-52.0) % MCV (80.0-100.0) fL MCH (25.0-34.0) pg MCHC (32.0-36.0) g/dL RDW Std Deviation (36.4-46.3) fL RDW Coeff of Imelda (11.5-14.5) % Plt Count (130-400) K/uL MPV (9.4-12.4) fL Immature Gran % (Auto) % Neut % (Auto) % Lymph % (Auto) % Harney % (Auto) % Eos % (Auto) % Baso % (Auto) % Neut # (Auto) (1.40-6.50) K/uL Lymph # (Auto) (1.2-3.4) K/uL Harney # (Auto) (0.11-0.59) K/uL Eos # (Auto) (0-0.50) K/uL Baso # (Auto) (0-0.2) K/uL Immature Gran # (Auto) (0.01-0.20) K/uL Sodium (136-145) mmol/L Potassium (3.5-5.1) mmol/L Chloride (98-107) mmol/L Carbon Dioxide (21-32) mmol/L Anion Gap (3-11) BUN (6-23) mg/dl Creatinine (0.6-1.4) mg/dl Est Cr Clr Drug Dosing ml/min Est GFR ( Amer) ml/min Est GFR (Non-Af Amer) ml/min BUN/Creatinine Ratio (10-20) Glucose (70-99(Fasting)) mg/dl Lactate (0.4-2.0) mmol/L Calcium (8.6-10.3) mg/dl Magnesium (1.7-2.4) mg/dl Total Bilirubin (0.2-1.0) mg/dl Direct Bilirubin (0-0.2) mg/dl AST (13-39) U/L ALT (7-52) U/L Alkaline Phosphatase (34-104) U/L Troponin I High Sens (0-20) pg/ml Total Protein (6.0-8.3) gm/dl Albumin (3.4-5.0) gm/dl Procalcitonin (0-0.5) ng/ml Urine Color Dark Yellow Urine Appearance Turbid A (Clear) Urine pH 5.5 (4.5-7.5) Ur Specific [place] 1.034 H (1.000-1.030) Urine Protein 1+ H (Negative) Urine Glucose (UA) Negative (Negative) Urine Ketones Trace H (Negative) Urine Blood 2+ H (Negative) Urine Nitrite Negative (Negative) Urine Bilirubin Negative (Negative) Urine Urobilinogen Negative (Negative) Ur Leukocyte Esterase Trace H (Negative) Urine WBC (Auto) 1-5 (0-5) /hpf Urine RBC (Auto) >30 H (0-4) /hpf U Hyaline Cast (Auto) 1-5 (0-5) /lpf U Epithel Cells (Auto) 10-20 H (0-5) /lpf Urine Bacteria (Auto) Negative (Negative) Urine Crystals Not Reportable Calcium Oxalate Crystal Present A (None Prsent) Urine Mucus Present A (None Prsent) SARS-CoV-2 (PCR) (Negative) Influenza Type A (PCR) (Neg) Influenza Type B (PCR) (Neg) RSV (RT-PCR) (Neg) SARS-CoV-2, RNA, NAAT (NEGATIVE) Administered Medications Discontinued Medications Furosemide (Furosemide 40 Mg/4 Ml Vial) 40 mg IV ONE ONE Stop: 12/10/22 08:13 Last Admin: 12/10/22 08:34 Dose: 40 mg Documented By: MT Sodium Chloride (Nss 1000ml) 1,000 mls @ 999 mls/hr IV .[id number] ONE Stop: 12/10/22 07:35 Last Infusion: 12/10/22 07:57 Dose: 0 mls/hr Documented By: Admin: 12/10/22 06:46 Dose: 999 mls/hr Documented By: GEORGE Ceftriaxone Sodium (Rocephin) 2,000 mg in 70 mls @ 140 mls/hr IV NOW STA Stop: 12/10/22 07:04 Last Infusion: 12/10/22 07:57 Dose: 0 mls/hr Documented By: Admin: 12/10/22 06:45 Dose: 140 mls/hr Documented By: GEORGE Magnesium Sulfate/Dextrose (Magnesium Sulfate / D5w) 1 gm in 100 mls @ 50 mls/hr IV ONE ONE Stop: 12/10/22 10:10 Last Infusion: 12/10/22 11:02 Dose: 0 mls/hr Documented By: Admin: 12/10/22 08:34 Dose: 50 mls/hr Documented By: CRISTIANA Potassium Chloride (Potassium Chloride 20 Meq/15 Ml Udc) 40 meq PO NOW STA Stop: 12/10/22 08:12 Last Admin: 12/10/22 08:34 Dose: 40 meq Documented By: CRISTIANA Imaging Data Radiologist's Impression: Chest X-Ray 12/10/22 04:55 XR chest 1V portable HISTORY: Sepsis COMPARISON: Chest 11/28/2022. FINDINGS: No pneumothorax. The heart remains enlarged. Bibasilar densities and bilateral pleural effusions persist. Mild interstitial pulmonary edema is also unchanged. There are calcifications within the aortic knob. IMPRESSION: 1. Mild interstitial pulmonary edema, unchanged. 2. Bibasilar densities and bilateral pleural effusions also persist. ACT 112: Negative or not required by law. Electronically signed by: Micha Colud M.D. 12/10/2022 7:12 AM Abdomen/Pelvis CT 12/10/22 06:[address] WITHOUT CONTRAST CT DOSE: 631.43 mGy.cm HISTORY: Acute low back pain lower back pain TECHNIQUE: Multiaxial CT images of the abdomen and pelvis were performed without contrast. A dose lowering technique was utilized adhering to the principles of ALARA. COMPARISON STUDY: 11/21/2022, 11/13/2022 FINDINGS: Mild to moderate cardiomegaly. Coronary artery calcifications with small pericardial effusion. Small moderate layering pleural effusions have increased in size from prior. Bibasilar groundglass and consolidative opacities are new/progressed from prior. No pneumatosis or pneumoperitoneum. The unenhanced spleen, pancreas, gallbladder, adrenal glands and liver appear unremarkable. The right kidney is within normal limits. The previously noted nonobstructing calculus within the inferior pole left kidney is now present within the distal left ureter on image 340 measuring 4 mm. This is positioned several centimeters proximal to the ureterovesicular junction. The additional 3 mm calculus of the distal left ureter is no longer identified. No significant obstructive uropathy. Decompressed or bladder with mild wall thickening. Pr ostamegaly. Atherosclerosis of the aorta. No bowel obstruction or bowel wall thickening. Trace free fluid within the dependent pelvis. Moderate colonic fecal retention. The appendix is not definitively seen. Mild generalized body wall edema. Avascular necrosis of the right femoral head. Degenerative changes of the spine, pelvis and hips. IMPRESSION: 1. The previously noted calculus within the inferior pole left kidney is now present within the distal left ureter measuring 4 mm. No significant associated obstructive uropathy. 2. Cardiomegaly with small to moderate pleural effusions and interstitial pulmonary edema. 3. Dependent bibasilar compressive atelectasis with additional patchy opacities possibly representing alveolar pulmonary edema versus pneumonia. 4. Additional findings as above. ACT 112: Negative or not required by law. The above report was generated using voice recognition software. It may contain grammatical, syntax or spelling errors. Electronically signed by: Nilton Ryan M.D. 12/10/2022 8:39 AM Discharge Plan Visit Data Chief Complaint: Fever Stated Complaint: FEVER, BACK PAIN, CONGESTION ED Provider: Antonio Mason Discharge Problem: Hypoxia, Back pain, Fever, Pleural effusion, Renal colic Patient Disposition: Admitted As Inpatient Discharge Instructions Interventions: ED Discharge Assessment Last Done: 12/10/22 12:27
[2022-12-10 07:07] LABS: Appearance Urine Turbid (Clear); Bacteria Urine Automated Negative (Negative); Bilirubin Urine Negative (Negative); Blood Urine 2+ (Negative); Color Urine Dark Yellow; Glucose Urine UA Negative (Negative); Ketones Urine Trace (Negative); Leukocyte Esterase Urine Trace (Negative); Nitrite Urine Negative (Negative); Protein Urine 1+ (Negative); Specific Gravity Urine 1.034 (1.000-1.030); Urobilinogen Urine Negative (Negative); pH Urine 5.5 (4.5-7.5)
--- NOTE | 2022-12-10 07:13 | XRay Report ---
XR chest 1V portable HISTORY: Sepsis COMPARISON: Chest 11/28/2022. FINDINGS: No pneumothorax. The heart remains enlarged. Bibasilar densities and bilateral pleural effu sions persist. Mild interstitial pulmonary edema is also unchanged. There are calcifications within t he aortic knob. IMPRESSION: 1. Mild interstitial pulmonary edema, unchanged. 2. Bibasilar densities and bilateral pleural effusions also persist. ACT 112: Negative or not required by law. Electronically signed by: Micha Cloud M.D. 12/10/2022 7:12 AM
[2022-12-10 07:42] LABS: Calcium Oxalate Crystals Urine Present (None Prsent); Mucus Urine Present (None Prsent); RBC Urine Automated >30 /hpf (0-4)
[2022-12-10] MEDS ORDERED: POTASSIUM CHLORIDE 20 MEQ/15 ML UDC PO STA (08:11)
[2022-12-10] MEDS ORDERED: MAGNESIUM SULFATE / D5W 1 GM/100 ML BAG IV ONE (08:11)
--- NOTE | 2022-12-10 08:11 | History & Physical Report ---
Date of Service December 10, 2022 Assessment & Plan (1) Pulmonary edema: Plan: Presenting with fevers at home to 101.3F. Recent admission for Sepsis 2nd to urinary source/possible aspiration pneumonia and completed course IV abx 7 days inpatient and sent on Cefdinir and short course of diuretics for fluid in lungs (ECHO w/ normal LV size/function, EF 55-60%, small pericardial effusion w/o evidence for tamponade - compared to prior study 2020, effusion appears slightly larger) CXR w/ mild interstital edema, bibasilar densities and b/l effusions persist Was given 1L NSS in ER, Spo2 to 88%, responded to supplemental O2 and saturating on 2L. Admit to med/tele Flu/COVID/RSV testing negative. Check Biofire if negative Lasix 40mg IV x 1, monitor response -- defer additional dosing to day team Check MRSA nasal Monitor blood cultures Tx for HAP given fevers/lung exam/fevers as urine does not appear infected w/ Cefepime/Vanco Given Rocephin in ER, blood cultures pending -- monitor Pulmonary toilet Nebs prn Sputum cx if able to obtain Supplemental O2 to maintain sats (2) PAF (paroxysmal atrial fibrillation): Plan: hx of such EKG on admit junctional w/ PVCs/PACs, prolonged QT -- junctional replaced afib started on dig, recent increase to 0.25mcg daily due to elevated HRs at home (reported in 100-140s) Will check Dig level K 3.4, Mag 1.7 -- PO Kcl/IV mag replacement ordered Diuresis as above Continue Eliquis -- recently started given pt now essentially wheelchair bound but was previously held due to frequent falls Monitor on telemetry (3) Nephrolithiasis: Plan: recent admission for Sepsis 2nd urinary source/possible aspiration pneumonia temps at home 101.1F urology consulted (4) Parkinson's disease: Plan: continue home meds -- Parkinson w/ neurogenic orthostatic hypotension and on fludrocortisone, midodrine Fall precautions/aspiration precautions (5) Pneumonia: Plan: possible, tx for HAP as above, check MRSA nasal diuresis follow lung exam (6) Dementia: Plan: w/ parkinsons frequent orientation/maintain sleep cycle (7) Hypokalemia: Plan: replacement K/mag as above monitor labs on repeat (8) LVH (left ventricular hypertrophy): History of Present Illness Primary Care Provider: Philip Tate MD 82yo with PMHx significant for Parksinons, Dementia, Hypothyroidism, parosyxmal afib presented with fevers at home, recent admission for sepsis 2nd to urinary source/stone. Was sent on abx (completed 7 days IV) and sent on Cefdinir and also several days of PO lasix for volume overload. Urology seen outpt and has been rec CT prior to preop for cystoscopy/ureteroscopy CXR w/ mild interstial pulmonary edema, bibasilar densities and b/l effusions persist. Patient evaluated with his at bedside who provides most of history. Had family gathering a day or two ago and children thought he was a little more confused, which is what happens when he has an infection. She notes he typically isn't able to tell you what exactly is wrong, but that he doesn't feel well. She notes he had a fever of 101.3F last evening and that he hadn't had a fever since discharge from the hospital. She notes that he had been having reports of back pain for the last three days and verbalized on the left side, and had previously not reported issues regarding back pain with his stone. He has a history of spinal stnoeis and she reports savular fractures from fall down the steps several years ago and does have a left sided lean from Parkinson's as well as Urine has been qustionable, blood the other day, visibly bright red reported and she reports noting straining urine and showed to urology. Had been on meth hippurate but reported diarrhea with that medication adn had not started since off abx and she reports this was to prevent UTI issues but given side effects wants to discuss with Urology about not continuing this medication. No issues w/ swallowing and she notes prior visit w/ speech eval no issues but was tx for aspiration. He has had a cough at home and not on any PPI/H2 at present. No sputum production but he doesn't clear easily and she does note the other day she audibly heard him wheezing. She notes outpatient modified [facility] HRs had been 100-140s and saw cardiology who increased digoxin. She notes no level checked since that was done. Discussed will check w/ Dr Wu regarding EKG, but will plan to monitor on telemetry. Elevated HR may be contributing to his edema/volume overload and effusions on examination. She does note they took the lasix x 2 days at d/c last time as instructed but that his weight is up about 3lbs from last admission and she has noticed increased LE edema which is a new finding for him. Moved bowels 2 days ago but not uncommon to be 2-3 days for BM. On miralax daily but they had been holding senna. Uses prune juice or other in evening if needed. She does have concerns w/ his age/anesthesia if needing to go to OR for de finitive treatment for stone. Has not taken his medications yet at present -- asked nursing to call pharmacy to have them send up now. Regarding code status, patient is a DNR. ER Course: Rocephin 2gm IV, 1L NSS. Currently on 2L and SpO2 99%, Allergies Allergy/AdvReac Type Severity Reaction Status Date / Time No Known Allergies Allergy Verified 12/03/22 14:09 Home Medications Medication Instructions Recorded Confirmed Type atorvastatin 20 mg tablet (Lipitor) 20 mg PO QAM 05/11/19 12/03/22 History cholecalciferol (vitamin D3) 50 2,000 unit PO TID 05/11/19 12/03/22 History mcg (2,000 unit) capsule (Vitamin D3) clonazepam 1 mg tablet 2 mg PO HS #45 tabs 05/11/19 12/03/22 History donepezil 10 mg tablet (Aricept) 10 mg PO HS 05/11/19 12/03/22 History levothyroxine 50 mcg tablet 50 mcg PO QAM 06/30/19 12/03/22 History (Synthroid) melatonin 10 mg tablet 10 mg PO HS 06/30/19 12/03/22 History multivitamin (Daily Multi-Vitamin 1 tab PO PM 06/30/19 12/03/22 History tablet) fludrocortisone 0.1 mg tablet 0.2 mg PO QAM 09/16/21 12/03/22 History sennosides 8.6 mg tablet (Senokot) 17.2 mg PO BID PRN Constipation 09/16/21 12/03/22 History polyethylene glycol 3350 17 8.5 gm PO DAILY #0 grams 09/19/21 12/03/22 Rx gram/dose oral powder (Miralax) midodrine 5 mg tablet 2.5 mg PO TID 01/22/22 12/03/22 History carbidopa 25 mg-levodopa 100 mg 2 tab PO QID 09/27/22 12/03/22 History tablet hydrocortisone 2.5 % topical cream 1 applic EXT TID PRN Hemorrhoids 09/27/22 12/03/22 History with perineal applicator (Proctosol HC) ketoconazole 2 % topical cream 1 applic topical BID PRN NEEDED 09/27/22 12/03/22 History venlafaxine 37.5 mg 37.5 mg PO DAILY 09/27/22 12/03/22 History capsule,extended release 24 hr apixaban 5 mg tablet (Eliquis) 5 mg PO BID #60 tabs 11/28/22 12/03/22 Rx furosemide 20 mg tablet (Lasix) 20 mg PO DAILY PRN edema/excess 11/28/22 12/03/22 Rx water build-up #14 tabs potassium chloride 10 mEq 10 meq PO DAILY PRN take only when 11/28/22 12/03/22 Rx tablet,extended release you use furosemide diuretic #14 tabs digoxin 250 mcg (0.25 mg) tablet 250 mcg PO DAILY #30 tabs 12/03/22 12/03/22 Rx Past Med/Surg History Medical History Adjustment disorder Aspiration pneumonia 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 Chronic constipation Closed head injury Complicated UTI (urinary tract infection) Demand ischemia Depression Elevated troponin Hypokalemia Hypotension Hypothyroidism Left ureteral calculus Lumbar pain Lumbar post-laminectomy syndrome Prior left L3-4 hemilaminectomy Memory loss Metabolic encephalopathy Neurogenic bladder PAF (paroxysmal atrial fibrillation) Parkinson's disease Parkinson's disease with neurogenic orthostatic hypotension Pericardial effusion Pneumonia Prostatic hypertrophy (03/29/13) Pulmonary edema Sacral insufficiency fracture Sepsis Spinal stenosis of lumbar region Syncope Uncontrolled REM sleep behavior disorder Urge incontinence of urine Surgical History History of back surgery History of tonsillectomy 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) Family History Unknown Alzheimer disease Sister Diabetes Cancer Other Family history non-contributory Social History Smoking Status: Never smoker Tobacco Type: Cigarettes Second Hand Exposure: No; Hx Alcohol Use: No Hx Substance Use: No Preferred Language: Swedish Communication Ability: Effective Communication Ability Comment: Patient having difficulty making word choices and sentences (pt states) 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 Beliefs That Will Affect Care: None marital status: Current Living Situation: Parent current occupational status: retired Other Information That Helps Us Care for You: No Feels Safe at Home: Yes Safety Concerns: Feels Safe At This Time Assistive Devices: Glasses and Hearing Aid - Bilateral Physical Exam Physical Exam: General: WD male , chronically ill appearing, resting in bed upon entry, at bedside HEENT: head normocephalic, mmm, trachea midline, +JVD Resp: diminished in bases w/ associated crackles, end expiratory wheezing, on 2L NC, +cough, no tachypnea CV: irregular, +murmur, diminished HS, 1+ b/l LE edema, calves nontender GI: +BS, slight distension, nontender : no corona MSK/Neuro: CN intact grossly, slight decreased strength L>R with dorsiflexion/plantar flexion, sensation intact, right leg slightly shorter ( reports chronic) Psych: alert to person, cooperative/pleasant Results & Data Results & Data Vital Signs (Past 12 Hours) Vital Signs Temp Pulse Resp BP BP Pulse Ox O2 Del Method 12/10/22 07:43 99 12/10/22 07:37 88 L Room Air 12/10/22 07:00 79 16 168/80 H 100 12/10/22 06:10 79 17 99 12/10/22 06:00 78 17 100 12/10/22 06:00 158/81 H 12/10/22 05:50 76 19 98 12/10/22 05:40 79 19 99 12/10/22 05:30 84 19 100 12/10/22 05:28 83 20 100 12/10/22 05:28 156/68 H 12/10/22 05:20 78 21 98 12/10/22 05:10 81 21 98 12/10/22 05:00 79 22 97 12/10/22 04:55 76 23 95 12/10/22 04:55 76 12/10/22 05:32 16 156/68 H 99 Nasal Cannula 12/10/22 04:55 89 L Room Air 12/10/22 04:37 36.7 C 85 20 121/55 L 89 L Room Air O2 Flow Rate 12/10/22 07:43 3 12/10/22 07:37 12/10/22 07:00 2 12/10/22 06:10 12/10/22 06:00 12/10/22 06:00 12/10/22 05:50 12/10/22 05:40 12/10/22 05:30 12/10/22 05:28 12/10/22 05:28 12/10/22 05:20 12/10/22 05:10 12/10/22 05:00 12/10/22 04:55 12/10/22 04:55 12/10/22 05:32 2 12/10/22 04:55 12/10/22 04:37 Laboratory Results CBC, CMP reviewed UA reviewed Code Status & VTE Plan VTE Prophylaxis Plan VTE Prophylaxis will be ordered: Yes Supervising Physician Co-Signing Physician Notes PA Supervision Note: I personally saw and examined the patient. I verified all esteves points and agree with HERBERT Hernandez with the following exceptions and/or additions: S-Pt here with left flank pain, hematuria, and fever at home, Also with some SOB and "gurgling" as per . NO GI symptoms, no rashes, no cough or sputum production, no headache. Found to have moderate pleural effusions, possible PNA, and left ureterolithiasis and UTI History and ROS reviewed otherwise as above O- Vitals reviewed Gen: [AAOx3, NAD] HEENT: [anicteric sclerae, EOMI] CV: [irreg irreg no mgr nl S1S2] Pulm: [diminished at bases bilat, +crackles] Abd: [+BS soft NT ND no masses or hernias, [place] catheter bag with dark red urine] Ext: [no edema] Skin: [no rashes, warm/dry] Neuro: [increased rigidity in extremities, masked facies, bradykinesia ] Labs and Rads reviewed A/P-82 yo male with history as above, here with fever, acute on chronic diastolic CHF, UTI with left ureterolithiasis and possible PNA. treating with broad spectrum abx for both PNA and UTI diuresing-will see what it service continuity supervisor is in AM and decide about further diuretics consult Urology appreciated stone may pass on own and not ting rif fever is from stone follow BCxs, Ur cx, CXR PG Care Time/CCT Total # of Minutes Spent Total Time Spent with Patient: Total time spent is greater than 50% in coordination of care (as documented) at patient's floor/unit and/or counseling patient: Coding Level of Care Code 85949 INT INP/OBS CARE 3/75MIN Diagnoses Pulmonary edema J81.1 PAF (paroxysmal atrial fibrillation) I48.0 Nephrolithiasis N20.0 Parkinson's disease G20 Pneumonia J18.9 Dementia F03.90 Hypokalemia E87.6 LVH (left ventricular hypertrophy) I51.7
[2022-12-10] MEDS ORDERED: FUROSEMIDE 40 MG/4 ML VIAL IV ONE (08:12)
--- NOTE | 2022-12-10 08:40 | CT Scan Report ---
ABDOMEN AND PELVIS CT WITHOUT CONTRAST CT DOSE: 631.43 mGy.cm HISTORY: Acute low back pain lower back pain TECHNIQUE: Multiaxial CT images of the abdomen and pelvis were performed without contrast. A dose lo wering technique was utilized adhering to the principles of ALARA. COMPARISON STUDY: 11/21/2022, 11/13/2022 FINDINGS: Mild to moderate cardiomegaly. Coronary artery calcifications with small pericardial effusi on. Small moderate layering pleural effusions have increased in size from prior. Bibasilar groundglas s and consolidative opacities are new/progressed from prior. No pneumatosis or pneumoperitoneum. The unenhanced spleen, pancreas, gallbladder, adrenal glands and liver appear unremarkable. The right kidney is within normal limits. The previously noted nonobstructing calculus within the inferior shirin e left kidney is now present within the distal left ureter on image 340 measuring 4 mm. This is posit ioned several centimeters proximal to the ureterovesicular junction. The additional 3 mm calculus of the distal left ureter is no longer identified. No significant obstructive uropathy. Decompressed or bladder with mild wall thickening. Prostamegaly. Atherosclerosis of the aorta. No bowel obstruction or bowel wall thickening. Trace free fluid within the dependent pelvis. Moderate colonic fecal retention. The appendix is not definitively seen. Mild generalized body wall edema. 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 Degenerative changes of the spine, pelvis and hips. IMPRESSION: 1. The previously noted calculus within the inferior pole left kidney is now present within the dista l left ureter measuring 4 mm. No significant associated obstructive uropathy. 2. Cardiomegaly with small to moderate pleural effusions and interstitial pulmonary edema. 3. Dependent bibasilar compressive atelectasis with additional patchy opacities possibly representing alveolar pulmonary edema versus pneumonia. 4. Additional findings as above. ACT 112: Negative or not required by law. The above report was generated using voice recognition software. It may contain grammatical, syntax o r spelling errors. Electronically signed by: Nilton Ryan M.D. 12/10/2022 8:39 AM
[2022-12-10 08:41] LABS: Influenza A virus by PCR Negative (Neg); Influenza B virus by PCR Negative (Neg); RSV by PCR Negative (Neg); SARS CoV2 RNA(COVID-19) Ceph NEGATIVE (Negative)
[2022-12-10] MEDS ORDERED: ACETAMINOPHEN 325 MG TAB PO PRN (12:26)
[2022-12-10] MEDS ORDERED: SENNA 8.6 MG TAB PO PRN (12:26)
[2022-12-10] MEDS ORDERED: VANCOMYCIN CONSULT ACTIVE PRN (12:26)
[2022-12-10] MEDS ORDERED: ONDANSETRON INJ 2 MG/ML 2 ML VIAL IV PRN (12:26)
[2022-12-10] MEDS ORDERED: ALBUT/IPRATROP 3MG/0.5MG NEB 3 ML VIAL NEB PRN (12:26)
[2022-12-10] MEDS ORDERED: VANCOMYCIN HCL 1,000 MG in SODIUM CHLORIDE 0.9% 250 ML IV SCH (12:26)
[2022-12-10] MEDS: CHOLECALCIFEROL 1,000 UNITS 25 MCG TAB PO SCH ×2 (13:27→20:21)
[2022-12-10] MEDS: CEFEPIME 2,000 MG in SYRINGE 0 ML IV SCH ×2 (13:28→20:57)
[2022-12-10] MEDS: LEVOTHYROXINE SODIUM 50 MCG TABLET PO SCH (13:28)
[2022-12-10] MEDS: CARBIDOPA/LEVODOPA 25-250 1 EA TAB PO SCH ×3 (13:28→20:21)
[2022-12-10] MEDS: VENLAFAXINE HCL XR 37.5 MG CAPXR PO SCH (13:29)
[2022-12-10] MEDS: POLYETHYLENE (MIRALAX) 17 GM PACK PO SCH (13:29)
[2022-12-10] MEDS: MIDODRINE HCL 2.5 MG TAB PO SCH ×2 (13:30→18:03)
[2022-12-10] MEDS: FLUDROCORTISONE ACETATE 0.1 MG TAB PO SCH (13:31)
[2022-12-10] MEDS: DIGOXIN 0.25 MG TAB PO SCH (13:31)
[2022-12-10] MEDS: APIXABAN 5 MG TABLET PO SCH ×2 (13:32→20:21)
--- NOTE | 2022-12-10 13:37 | Electrocardiogram Report ---
Test Reason : Blood Pressure : / mmHG Vent. Rate : 087 BPM Atrial Rate : 074 BPM P-R Int : 000 ms QRS Dur : 090 ms QT Int : 410 ms P-R-T Axes : 000 005 012 degrees QTc Int : 493 ms Atrial fibrillation with premature ventricular or aberrantly conducted complexes Prolonged QT Abnormal ECG When compared with ECG of 27-NOV-2022 21:18, No significant change Confirmed by Perez Wu ([id number]) on 12/10/2022 1:37:16 PM Referred By: Confirmed By:Perez Wu
[2022-12-10 15:53] LABS: Adenovirus PCR Not Detected (NotDetected); Bordetella parapertussis PCR Not Detected (NotDetected); Bordetella pertussis PCR Not Detected (NotDetected); Chlamydia pneumoniae PCR Not Detected (NotDetected); Coronavirus 229E PCR Not Detected (NotDetected); Coronavirus CoV-2 (COVID19)PCR Not Detected (NotDetected); Coronavirus HKU1 PCR Not Detected (NotDetected); Coronavirus NL63 PCR Not Detected (NotDetected); Coronavirus OC43PCR Not Detected (NotDetected); Human Metapneumovirus PCR Not Detected (NotDetected); Influenza A PCR Not Detected (NotDetected); Influenza B PCR Not Detected (NotDetected); Mycoplasma pneumoniae PCR Not Detected (NotDetected); Parainfluenza Virus 1 PCR Not Detected (NotDetected); Parainfluenza Virus 2 PCR Not Detected (NotDetected); Parainfluenza Virus 3 PCR Not Detected (NotDetected); Parainfluenza Virus 4 PCR Not Detected (NotDetected); Respiratory Syncytial VirusPCR Not Detected (NotDetected); Rhinovirus/Enterovirus PCR Not Detected (NotDetected)
--- NOTE | 2022-12-10 19:18 | Urology Consultation ---
Date of Consultation December 10, 2022 Assessment & Plan (1) Renal colic: The patient has been admitted on the hospitalist service. It appears as though the patient is suffering from congestive heart failure as many of his presenting symptoms point to this is a possible diagnosis. From a urologic perspective we recommend the following: Patient has been started on broad-spectrum antibiotics in the form of cefepime which we will continue and this can be tailored based on pending culture result -Patient's cultures were reviewed and a urine culture from 12/09/2022 (yesterday) does show gram-negative bacilli. He also had a recent urine culture on 11/21/2022 that showed E. coli with resistance to Bactrim as well as ampicillin. At the present time the patient is noted to be afebrile and hemodynamically stable. He is normotensive without tachycardia. He does not exhibit leukocytosis or acute kidney injury. He also does not have an elevated lactic acid level. I therefore do not think an emergent urologic procedure is warranted and his other medical issues should be optimized prior to entertaining any intervention on his kidney stone History of Present Illness Reason for Consultation: Nephrolithiasis Attending Physician: Heidy Harrington MD History of Present Illness This is an 82-year-old male who presented to [facility] secondary to increasing confusion. Patient's was at bedside who did help supplement the history. According to the patient and his that a family gathering few days ago where the patient was noted to be more confused. This is what happens when the patient typically has an infection. She notes that her did have a fever as high as 101.3 last evening. He did not report any dysuria but the patient has been verbalizing some back/flank pain on the left side. He has not had any nausea or vomiting or abdominal pain. She does note that he feels somewhat more short of breath. In addition to what is already noted the patient's also notes that he has gained approximately 10 to 15 pounds over the past several weeks. She notes that he has been noted to have increased JVD as well as worsening lower extremity edema. The patient does have a known history of a left-sided kidney stone. The patient has most recently been seen by Dr. Compa Purcell on December 06 of this year and plans were being put in place for patient to have outpatient treatment of his kidney stone. It is also noteworthy to mention that the patient was hospitalized at [facility] from 11/21/2022 through 11/28/2022. During this hospitalization the patient was treated for sepsis secondary to a UTI and as well as aspiration pneumonia. The patient was treated with appropriate antibiotics while he was in the hospital and he was discharged home on oral cefdinir. During his hospitalization the patient did have issues with atrial fibrillation and rate control. His atrial fibrillation was controlled with adjustment of his cardiac medications and he has also since been anticoagulated with Eliquis twice daily. Since arrival to the hospital the patient has had labs and imaging which I independent reviewed. CT scan of the abdomen pelvis showed the patient had a 4 mm kidney stone in the distal left ureter without any obstructive uropathy noted. The patient was noted to have small to moderate pleural effusions as well as interstitial pulmonary edema on this study. A chest x-ray also showed findings consistent with interstitial pulmonary edema. Labs include a CBC her white blood cell count was normal as was the platelet count. Hemoglobin and hematocrit were 11.3 and 33.7. Chemistry profile showed sodium was 139 with a potassium of 3.4. BUN and creatinine were both normal. Lactic acid level was nonelevated. A urinalysis showed turbid urine with 2+ blood and was negative for nitrites. There is trace leukocyte Estrace. There were 1-5 white blood cells per high-power field and no bacteria. Patient did have a bio fire run which was negative for all serologies tested specifically negative for COVID. At the time of my interview the patient was resting comfortably and he was in no distress. Allergies Allergy/AdvReac Type Severity Reaction Status Date / Time No Known Allergies Allergy Verified 12/03/22 14:09 Home Medications Medication Instructions Recorded Confirmed Type atorvastatin 20 mg tablet (Lipitor) 20 mg PO QAM 05/11/19 12/03/22 History cholecalciferol (vitamin D3) 50 2,000 unit PO TID 05/11/19 12/03/22 History mcg (2,000 unit) capsule (Vitamin D3) clonazepam 1 mg tablet 2 mg PO HS #45 tabs 05/11/19 12/03/22 History donepezil 10 mg tablet (Aricept) 10 mg PO HS 05/11/19 12/03/22 History levothyroxine 50 mcg tablet 50 mcg PO QAM 06/30/19 12/03/22 History (Synthroid) melatonin 10 mg tablet 10 mg PO HS 06/30/19 12/03/22 History multivitamin (Daily Multi-Vitamin 1 tab PO PM 06/30/19 12/03/22 History tablet) fludrocortisone 0.1 mg tablet 0.2 mg PO QAM 09/16/21 12/03/22 History sennosides 8.6 mg tablet (Senokot) 17.2 mg PO BID PRN Constipation 09/16/21 12/03/22 History polyethylene glycol 3350 17 8.5 gm PO DAILY #0 grams 09/19/21 12/03/22 Rx gram/dose oral powder (Miralax) midodrine 5 mg tablet 2.5 mg PO TID 01/22/22 12/03/22 History carbidopa 25 mg-levodopa 100 mg 2 tab PO QID 09/27/22 12/03/22 History tablet hydrocortisone 2.5 % topical cream 1 applic EXT TID PRN Hemorrhoids 09/27/22 12/03/22 History with perineal applicator (Proctosol HC) ketoconazole 2 % topical cream 1 applic topical BID PRN NEEDED 09/27/22 12/03/22 History venlafaxine 37.5 mg 37.5 mg PO DAILY 09/27/22 12/03/22 History capsule,extended release 24 hr apixaban 5 mg tablet (Eliquis) 5 mg PO BID #60 tabs 11/28/22 12/03/22 Rx furosemide 20 mg tablet (Lasix) 20 mg PO DAILY PRN edema/excess 11/28/22 12/03/22 Rx water build-up #14 tabs potassium chloride 10 mEq 10 meq PO DAILY PRN take only when 11/28/22 12/03/22 Rx tablet,extended release you use furosemide diuretic #14 tabs digoxin 250 mcg (0.25 mg) tablet 250 mcg PO DAILY #30 tabs 12/03/22 12/03/22 Rx Patient History Medical History Adjustment disorder Aspiration pneumonia 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 Chronic constipation Closed head injury Complicated UTI (urinary tract infection) Demand ischemia Depression Elevated troponin Hypokalemia Hypotension Hypothyroidism Left ureteral calculus Lumbar pain Lumbar post-laminectomy syndrome Prior left L3-4 hemilaminectomy Memory loss Metabolic encephalopathy Neurogenic bladder PAF (paroxysmal atrial fibrillation) Parkinson's disease Parkinson's disease with neurogenic orthostatic hypotension Pericardial effusion Pneumonia Prostatic hypertrophy (03/29/13) Pulmonary edema Sacral insufficiency fracture Sepsis Spinal stenosis of lumbar region Syncope Uncontrolled REM sleep behavior disorder Urge incontinence of urine Surgical History History of back surgery History of tonsillectomy 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) Family History Unknown Alzheimer disease Sister Diabetes Cancer Other Family history non-contributory Social History Smoking Status: Never smoker Tobacco Type: Cigarettes Second Hand Exposure: No; Hx Alcohol Use: No Hx Substance Use: No Preferred Language: Polish Communication Ability: Effective Communication Ability Comment: Patient having difficulty making word choices and sentences (pt states) 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: Yes Beliefs That Will Affect Care: None marital status: Current Living Situation: Parent current occupational status: retired Other Information That Helps Us Care for You: No Feels Safe at Home: Yes Safety Concerns: Feels Safe At This Time Assistive Devices: Glasses and Hearing Aid - Bilateral Review of Systems Constitutional: + fever Respiratory: + dyspnea Cardiovascular: no chest pain Gastrointestinal: no abdominal pain, no nausea and no vomiting Genitourinary: + as per Subjective / HPI Musculoskeletal: + back pain Physical Exam Constitutional: WD/WN, vitals as above Eyes: no conjunctival abnormality ENMT: Ears: no hearing impairment Mouth: no oropharynx abnormality Neck: JVD noted Respiratory: Breath sounds are noted to be decreased at the bases. Patient was not not using accessory muscles to aid in respiration and he was not in respiratory distress at the time of my exam Cardiovascular: Rate/Rhythm: regular rate and regular rhythm Gastrointestinal (Abdomen): Soft, nonrigid, nondistended, nontender to palpation Musculoskeletal: 3+ lower extremity edema noted bilaterally Skin: no rashes Neurologic: moves all extremities Genitourinary: no CVA tenderness (No CVA tenderness noted with percussion at the time of my exam) Results & Data Vital Signs (Past 12 Hours) Vital Signs Temp Pulse Pulse Resp BP BP Pulse Ox 12/10/22 18:09 83 12/10/22 18:15 12/10/22 17:57 36.9 C 94 H 16 178/98 H 96 12/10/22 17:00 86 20 96 12/10/22 17:00 158/86 H 12/10/22 16:30 86 28 H 97 12/10/22 16:01 165/91 H 12/10/22 16:01 82 30 H 99 12/10/22 16:00 82 20 97 12/10/22 15:30 86 19 97 12/10/22 15:00 78 32 H 95 12/10/22 15:00 133/65 12/10/22 14:30 82 21 93 12/10/22 15:32 36.6 C 84 20 132/69 97 12/10/22 14:00 84 22 97 12/10/22 14:00 159/84 H 12/10/22 13:30 82 20 99 12/10/22 13:00 78 20 99 12/10/22 13:00 168/84 H 12/10/22 12:30 77 14 100 12/10/22 13:31 82 12/10/22 12:47 82 12/10/22 12:00 82 21 93 12/10/22 12:00 160/80 H 12/10/22 11:30 80 15 100 12/10/22 11:00 70 16 100 12/10/22 11:00 155/81 H 12/10/22 10:30 72 18 100 12/10/22 10:00 78 19 100 12/10/22 10:00 157/81 H 12/10/22 09:00 75 18 158/83 H 99 12/10/22 10:03 36.6 C 12/10/22 09:00 78 12/10/22 07:43 99 12/10/22 07:37 88 L O2 Del Method O2 Flow Rate 12/10/22 18:09 12/10/22 18:15 Nasal Cannula 2 12/10/22 17:57 Nasal Cannula 2 12/10/22 17:00 Nasal Cannula 2 12/10/22 17:00 12/10/22 16:30 Nasal Cannula 2 12/10/22 16:01 12/10/22 16:01 Nasal Cannula 2 12/10/22 16:00 Nasal Cannula 2 12/10/22 15:30 12/10/22 15:00 12/10/22 15:00 12/10/22 14:30 12/10/22 15:32 Room Air 12/10/22 14:00 12/10/22 14:00 12/10/22 13:30 12/10/22 13:00 12/10/22 13:00 12/10/22 12:30 12/10/22 13:31 12/10/22 12:47 12/10/22 12:00 12/10/22 12:00 12/10/22 11:30 12/10/22 11:00 12/10/22 11:00 12/10/22 10:30 12/10/22 10:00 12/10/22 10:00 12/10/22 09:00 2 12/10/22 10:03 12/10/22 09:00 12/10/22 07:43 3 12/10/22 07:37 Room Air PG Care Time/CCT Total # of Minutes Spent Total Time Spent with Patient: Total time spent is greater than 50% in coordination of care (as documented) at patient's floor/unit and/or counseling patient: Coding Level of Care Code 57602 INT INP/OBS CARE 3/75MIN Diagnoses Renal colic N23
[2022-12-10] MEDS ORDERED: ACETAMINOPHEN 500 MG TAB PO PRN (19:42)
[2022-12-10] MEDS: ACETAMINOPHEN 500 MG TAB PO SCH (20:20)
[2022-12-10] MEDS: ATORVASTATIN 20 MG TAB PO SCH (20:20)
[2022-12-10] MEDS: clonazePAM 1 MG TAB PO SCH (20:20)
[2022-12-10] MEDS: DONEPEZIL HCL 10 MG TAB PO SCH (20:21)
[2022-12-10] MEDS: MELATONIN 3 MG TAB PO SCH (20:21)
[2022-12-10] MEDS: MULTIVITAMIN TAB PO SCH (20:21)
[2022-12-11] MEDS: CEFEPIME 2,000 MG in SYRINGE 0 ML IV SCH ×3 (06:20→19:45)
[2022-12-11] MEDS: LEVOTHYROXINE SODIUM 50 MCG TABLET PO SCH (06:20)
[2022-12-11 06:54] LABS: Basophils # (auto) 0.03 K/uL (0-0.2); Basophils % (auto) 0.5 %; Eosinophils # (auto) 0.18 K/uL (0-0.50); Hematocrit (blood only) 32.6 % (42.0-52.0); Hemoglobin 10.8 g/dl (14.0-18.0); Immature Granulocytes # (auto) 0.01 K/uL (0.01-0.20); Immature Granulocytes % (auto) 0.2 %; Lymphocytes # (auto) 0.98 K/uL (1.2-3.4); Lymphocytes % (auto) 16.4 %; Mean Corpuscular Hemoglobin 30.8 pg (25.0-34.0); Mean Corpuscular Hgb Conc 33.1 g/dL (32.0-36.0); Mean Corpuscular Volume 92.9 fL (80.0-100.0); Mean Platelet Volume 11.2 fL (9.4-12.4); Monocytes # (auto) 0.85 K/uL (0.11-0.59); Monocytes % (auto) 14.2 %; Neutrophils # (auto) 3.92 K/uL (1.40-6.50); Neutrophils % (auto) 65.7 %; Platelet Count 172 K/uL (130-400); RDW Coefficient of Variation 13.7 % (11.5-14.5); RDW Standard Deviation 46.3 fL (36.4-46.3); Red Blood Count 3.51 M/uL (4.70-6.10); White Blood Count 5.97 K/ul (4.8-10.8)
[2022-12-11 07:52] LABS: Albumin Globulin Ratio 1.3 (0.9-2); Albumin Level 3.3 gm/dl (3.4-5.0); BUN Creatinine Ratio 22.8 (10-20); Bilirubin,Total 1.6 mg/dl (0.2-1.0); Calcium 8.6 mg/dl (8.6-10.3); Creatinine Clr Calc Pharmacy 81.9 ml/min; Est GFR (African American) 98.3 ml/min; Est GFR (Non-African American) 84.8 ml/min; Globulin 2.5 gm/dl (2.5-4.0); Magnesium 1.9 mg/dl (1.7-2.4); Potassium 3.6 mmol/L (3.5-5.1); Total Protein 5.8 gm/dl (6.0-8.3)
[2022-12-11] MEDS: MIDODRINE HCL 2.5 MG TAB PO SCH ×3 (08:09→17:01)
[2022-12-11] MEDS ORDERED: FUROSEMIDE 40 MG/4 ML VIAL IV ONE (08:19)
[2022-12-11] MEDS ORDERED: POTASSIUM CHLORIDE CRTAB 20 MEQ TABCR PO STA (08:26)
[2022-12-11] MEDS ORDERED: MAGNESIUM SULFATE / D5W 1 GM/100 ML BAG IV ONE (08:28)
--- NOTE | 2022-12-11 08:52 | Urology Progress Note ---
I have discussed Mr. Barba's case with LUÍS Reilly and agree with the above documentation. The stone is small enough he has a decent chance of passing it spontaneously. For now would recommend optimizing his other comorbidities and giving him a chance to pass the stone. If the clinical situation changes or if he starts to decompensate, we can discuss stent placement on a more urgent basis. No plan for intervention today. Date of Service December 11, 2022 Assessment & Plan (1) Left ureteral calculus: Plan: Follow-up of 4 mm left distal ureteral calculus. Patient is afebrile and hemodynamically stable. Lab work reviewedcreatinine 0 .79, WBC 5.97, hemoglobin 10.8. Urine culture from 12/09 is preliminary showing gram-negative bacilli. Blood cultures 12/10 showing no growth x24 hours. He is currently on cefepime for suspected UTI and possible PNA. Recommend continue broad-spectrum antibiotics and narrow per sensitivity data when available. He denies significant flank pain. He has multiple competing acute and chronic issues including pulmonary edema and possible pneumonia. Given he is afebrile, labs stable and no significant flank pain, no emergent indication for surgical intervention at present. Can consider urologic intervention inpatient when medically optimized or if he clinically decompensates. Appreciate input from hospital team and cardiology. Condom catheter was noted to be displaced - nursing made aware. Monitor voiding, bladder scan prn. Continue supportive care, antibiotics and management per medicine service. Please consult our service urgently if patient develops fever >101F, intractable pain or nausea, as this will necessitate urgent surgical intervention. will follow. Admission and Anticipated Discharge Date Admission Date: December 10, 2022 Subjective Patient seen and examined at bedside this morning. He is resting in bed in no acute distress. No acute issues overnight. He denies fever or chills. He notes some back discomfort this morning, but reports he is not sure if it is related to kidney stone or laying in bed. No abdominal pain. Denies dysuria or hematuria at present. He has condom catheter in place, but on inspection it has fallen off. He reports cough and mild shortness of breath. Denies chest pain. Review of Systems Constitutional: as per Subjective / HPI Respiratory: as per Subjective / HPI Cardiovascular: as per Subjective / HPI Gastrointestinal: as per Subjective / HPI Genitourinary: + as per Subjective / HPI Physical Exam Constitutional: well developed and well nourished; no acute distress nontoxic Respiratory: no respiratory distress and no labored breathing O2 via nasal cannula Gastrointestinal (Abdomen): Inspection/Auscultation: abdomen normal to inspection; abdomen not distended Percussion/Palpation: abdomen soft; abdomen nontender and no guarding Musculoskeletal: Head/Neck/Chest: normocephalic and head atraumatic Neurologic: moves all extremities and awake Psychiatric: Orientation: alert and oriented x 3 Genitourinary: Condom catheter was displaced from penis, nursing made aware. No CVA tenderness Results & Data Vital Signs (Past 12 Hours) Vital Signs Temp Pulse Pulse Resp BP Pulse Ox O2 Del Method 12/11/22 07:46 36.5 C 73 18 142/63 H 97 Room Air 12/11/22 07:31 68 12/11/22 07:24 36.4 C L 70 16 139/81 97 Room Air 12/10/22 23:00 67 12/11/22 03:11 36.8 C 68 15 147/68 H 91 Nasal Cannula 12/10/22 22:57 37.2 C 71 16 126/52 L 92 Nasal Cannula 12/10/22 21:46 Nasal Cannula O2 Flow Rate 12/11/22 07:46 12/11/22 07:31 12/11/22 07:24 12/10/22 23:00 12/11/22 03:11 2 12/10/22 22:57 2 12/10/22 21:46 2 PG Care Time/CCT Total # of Minutes Spent Total Time Spent with Patient: Total time spent is greater than 50% in coordination of care (as documented) at patient's floor/unit and/or counseling patient: Coding Level of Care Code 64306 SUB INP/OBS CARE 2/35MIN Diagnoses Left ureteral calculus N20.1
[2022-12-11] MEDS: CHOLECALCIFEROL 1,000 UNITS 25 MCG TAB PO SCH ×3 (08:53→19:46)
[2022-12-11] MEDS: POLYETHYLENE (MIRALAX) 17 GM PACK PO SCH (08:54)
[2022-12-11] MEDS: DIGOXIN 0.25 MG TAB PO SCH (08:54)
[2022-12-11] MEDS: APIXABAN 5 MG TABLET PO SCH ×2 (08:54→19:47)
[2022-12-11] MEDS: VENLAFAXINE HCL XR 37.5 MG CAPXR PO SCH (08:55)
[2022-12-11] MEDS: CARBIDOPA/LEVODOPA 25-250 1 EA TAB PO SCH ×4 (08:55→19:46)
--- NOTE | 2022-12-11 09:54 | Cardiology Consultation ---
Date of Consultation December 11, 2022 Assessment & Plan (1) PAF (paroxysmal atrial fibrillation): (2) Atrial fibrillation with controlled ventricular rate: (3) LVH (left ventricular hypertrophy): (4) Left ureteral calculus: (5) Preoperative cardiovascular examination: (6) Elevated troponin I level: Plan Mr. Barba is an 82-year-old male with a history of Parkinson's Disease with Neurogenic Orthostatic Hypotension, Dementia, Severe Concentric LVH, Paroxysmal Atrial Fibrillation, Pericardial Effusion, and Pulmonary Edema who was admitted on 12/10/22 with fever and left ureteral colic. Patient was hospitalized in the recent past for urosepsis. According to records, the patient's stated on admission that they had family gathering a day or two prior to admission and their children thought he was a little more confused, which is what typically happens when he has an infection. He typically isn't able to tell you what exactly is wrong, but that he doesn't feel well. She noted he had a fever of 101.3F the evening before admission and that he hadn't had a fever since discharge from the hospital. Patient also complained of left back/flank pain for the last three days. Patient had some hematuria as well. Patient remains in atrial fibrillation but his ventricular response rate is controlled after being started on Digoxin and his Digoxin level is therapeutic on admission. His heart rate before starting digoxin was typically running between 100 to 140 bpm -- so was thought that this may have contributed to his pulmonary edema. His heart rate on monitoring now ranges between 60's to 100 despite the presence of atrial fibrillation. Patient is currently being diuresed for suspected pulmonary edema. Patient is quite inactive and pretty much wheelchair-bound at this point. He does not experience any limiting cardiopulmonary symptoms with his day-to-day activities. Patient has not experienced any angina pectoris or anginal equivalent symptoms, he has not had any shortness of breath, orthopnea, or PND despite his pulmonary edema, nor has he had any significant symptoms related to his atrial fibrillation. Based on his normal LV systolic function on recent echocardiogram, his atrial fibrillation is rate controlled, and he does not have any overt symptoms from his pulmonary edema and can lie down comfortably without getting short of breath -- patient is a low to intermediate cardiac risk for his upcoming urologic procedure. Patient should take his usual doses of Digoxin, Fludrocortisone, and Midodrine the morning of surgery with sips of water. Patient is high sensitivity troponin I is minimally elevated but is not having any significant trend -- suspect that this is due to demand ischemia related atrial fibrillation and acute illness. There is no need for further ischemic workup at this time. History of Present Illness Reason for Consultation: -- Atrial Fibrillation. -- Renal Colic. -- Preoperative Cardiac Evaluation. Requesting Physician: Heidy Harrington MD Attending Physician: Perez Wu MD History of Present Illness Mr. Barba is an 82-year-old male with a history of Parkinson's Disease with Neurogenic Orthostatic Hypotension, Dementia, Severe Concentric LVH, Paroxysmal Atrial Fibrillation, Pericardial Effusion, and Pulmonary Edema who was admitted on 12/10/22 with fever and left ureteral colic. Patient was hospitalized in the recent past for urosepsis. According to records, the patient's stated on admission that they had family gathering a day or two prior to admission and their children thought he was a little more confused, which is what typically happens when he has an infection. He typically isn't able to tell you what exactly is wrong, but that he doesn't feel well. She noted he had a fever of 101.3F the evening before admission and that he hadn't had a fever since discharge from the hospital. Patient also complained of left back/flank pain for the last three days. Patient had some hematuria as well. Patient remains in atrial fibrillation but his ventricular response rate is controlled after being started on Digoxin and his Digoxin level is therapeutic on admission. His heart rate before starting digoxin was typically running between 100 to 140 bpm -- so was thought that this may have contributed to his pulmonary edema. Patient is currently being diuresed. Patient is quite inactive and pretty much wheelchair-bound at this point. He does not experience any limiting cardiopulmonary symptoms with his day-to-day activities. He specifically denies any exertional chest pain, heaviness, tightness, pressure, or discomfort. He has not had any shortness of breath, orthopnea, or PND. He states he is able to lie down flat to sleep. He denies any syncope or near syncope. He has not had any significant symptoms related to his atrial fibrillation. ECHOCARDIOGRAM 11/26/2022: -- Normal LV size and systolic function, LVEF 55% to 60% with normal wall motion. -- Severe concentric LVH. -- Severe LA dilation. -- Mild MR. -- Small pericardial effusion without evidence of tamponade. -- Normal estimated RVSP. -- A-Fib with a normal heart rate. -- Compared to prior study 01/26/2021; Pericardial effusion appears slightly larger. Allergies Allergy/AdvReac Type Severity Reaction Status Date / Time No Known Allergies Allergy Verified 12/03/22 14:09 Home Medications Medication Instructions Recorded Confirmed Type atorvastatin 20 mg tablet (Lipitor) 20 mg PO QAM 05/11/19 12/03/22 History cholecalciferol (vitamin D3) 50 2,000 unit PO TID 05/11/19 12/03/22 History mcg (2,000 unit) capsule (Vitamin D3) clonazepam 1 mg tablet 2 mg PO HS #45 tabs 05/11/19 12/03/22 History donepezil 10 mg tablet (Aricept) 10 mg PO HS 05/11/19 12/03/22 History levothyroxine 50 mcg tablet 50 mcg PO QAM 06/30/19 12/03/22 History (Synthroid) melatonin 10 mg tablet 10 mg PO HS 06/30/19 12/03/22 History multivitamin (Daily Multi-Vitamin 1 tab PO PM 06/30/19 12/03/22 History tablet) fludrocortisone 0.1 mg tablet 0.2 mg PO QAM 09/16/21 12/03/22 History sennosides 8.6 mg tablet (Senokot) 17.2 mg PO BID PRN Constipation 09/16/21 12/03/22 History polyethylene glycol 3350 17 8.5 gm PO DAILY #0 grams 09/19/21 12/03/22 Rx gram/dose oral powder (Miralax) midodrine 5 mg tablet 2.5 mg PO TID 01/22/22 12/03/22 History carbidopa 25 mg-levodopa 100 mg 2 tab PO QID 09/27/22 12/03/22 History tablet hydrocortisone 2.5 % topical cream 1 applic EXT TID PRN Hemorrhoids 09/27/22 12/03/22 History with perineal applicator (Proctosol HC) ketoconazole 2 % topical cream 1 applic topical BID PRN NEEDED 09/27/22 12/03/22 History venlafaxine 37.5 mg 37.5 mg PO DAILY 09/27/22 12/03/22 History capsule,extended release 24 hr apixaban 5 mg tablet (Eliquis) 5 mg PO BID #60 tabs 11/28/22 12/03/22 Rx furosemide 20 mg tablet (Lasix) 20 mg PO DAILY PRN edema/excess 11/28/22 12/03/22 Rx water build-up #14 tabs potassium chloride 10 mEq 10 meq PO DAILY PRN take only when 11/28/22 12/03/22 Rx tablet,extended release you use furosemide diuretic #14 tabs digoxin 250 mcg (0.25 mg) tablet 250 mcg PO DAILY #30 tabs 12/03/22 12/03/22 Rx Patient History Medical History Adjustment disorder Aspiration pneumonia 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 Chronic constipation Closed head injury Complicated UTI (urinary tract infection) Demand ischemia Depression Elevated troponin Hypokalemia Hypotension Hypothyroidism Left ureteral calculus Lumbar pain Lumbar post-laminectomy syndrome Prior left L3-4 hemilaminectomy Memory loss Metabolic encephalopathy Neurogenic bladder PAF (paroxysmal atrial fibrillation) Parkinson's disease Parkinson's disease with neurogenic orthostatic hypotension Pericardial effusion Pneumonia Prostatic hypertrophy (03/29/13) Pulmonary edema Sacral insufficiency fracture Sepsis Spinal stenosis of lumbar region Syncope Uncontrolled REM sleep behavior disorder Urge incontinence of urine Surgical History History of back surgery History of tonsillectomy 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) Family History Unknown Alzheimer disease Sister Diabetes Cancer Other Family history non-contributory Social History Smoking Status: Never smoker Tobacco Type: Cigarettes Second Hand Exposure: No; Hx Alcohol Use: No Hx Substance Use: No Preferred Language: Panamanian Communication Ability: Effective Communication Ability Comment: Patient having difficulty making word choices and sentences (pt states) 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 Physical Exam Physical Exam: GENERAL: Patient in no acute distress. HEENT: Head is atraumatic, normocephalic. EOM's intact. Facies symmetric. No perioral cyanosis. NECK: No JVD. JVP is elevated. Carotid upstrokes are + 2 bilaterally without obvious bruits. CHEST/LUNGS: Diminished breath sounds in the right base, bibasilar crackles are present. No wheezes CVS: S1 and S2 are distant and irregularly irregular at a rate of 92 bpm. No obvious murmurs, gallops, or rubs. PMI is nonpalpable. No lifts, heaves, or thrills. No abdominal aortic or renal bruits. ABDOMINAL EXAM: Bowel sounds are present. No masses, organomegaly, or tenderness. EXTREMITIES: No clubbing or cyanosis. No edema. Intact radial pulses bilaterally. NEUROLOGIC EXAM: Patient is awake, alert, and interactive. Pleasant and cooperative. Answers questions. Speech is clear. 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 Results & Data Vital Signs (Past 12 Hours) Vital Signs Temp Pulse Pulse Resp BP Pulse Ox O2 Del Method 12/11/22 08:54 101 H 12/11/22 07:46 36.5 C 73 18 142/63 H 97 Room Air 12/11/22 07:31 68 12/11/22 07:24 36.4 C L 70 16 139/81 97 Room Air 12/10/22 23:00 67 12/11/22 03:11 36.8 C 68 15 147/68 H 91 Nasal Cannula 12/10/22 22:57 37.2 C 71 16 126/52 L 92 Nasal Cannula O2 Flow Rate 12/11/22 08:54 12/11/22 07:46 12/11/22 07:31 12/11/22 07:24 12/10/22 23:00 12/11/22 03:11 2 12/10/22 22:57 2 Laboratory Results Laboratory Results - last 24 hr 12/10/22 12/10/22 12/10/22 09:50 10:27 12:56 WBC RBC Hgb Hct MCV MCH MCHC RDW Std Deviation RDW Coeff of Imelda Plt Count MPV Immature Gran % (Auto) Neut % (Auto) Lymph % (Auto) Levy % (Auto) Eos % (Auto) Baso % (Auto) Neut # (Auto) Lymph # (Auto) Levy # (Auto) Eos # (Auto) Baso # (Auto) Immature Gran # (Auto) Sodium Potassium Chloride Carbon Dioxide Anion Gap BUN Creatinine Est Cr Clr Drug Dosing Est GFR ( Amer) Est GFR (Non-Af Amer) BUN/Creatinine Ratio Glucose Calcium Magnesium Total Bilirubin AST ALT Alkaline Phosphatase Troponin I High Sens 27.1 H Total Protein Albumin Globulin Albumin/Globulin Ratio Nasal Screen MRSA (PCR) Negative Digoxin 1.3 Adenovirus (PCR) B. pertussis DNA (PCR) B.parapertussis DNA PCR C. pneumoniae DNA (PCR) Coronavirus OC43 (PCR) Coronavirus HKU1 (PCR) Coronavirus 229E (PCR) SARS-CoV-2 (PCR) Coronavirus NL63 (PCR) Human Metapneumovir PCR Influenza Type A (PCR) Influenza Type B (PCR) M. pneumoniae (PCR) Parainfluenza 1 (PCR) Parainfluenza 2 (PCR) Parainfluenza 3 (PCR) Parainfluenza 4 (PCR) RSV (PCR) Entero/Rhino (PCR) 12/10/22 12/10/22 12/11/22 18:09 Unknown 06:04 WBC 5.97 RBC 3.51 L Hgb 10.8 L Hct 32.6 L MCV 92.9 MCH 30.8 MCHC 33.1 RDW Std Deviation 46.3 RDW Coeff of Imelda 13.7 Plt Count 172 MPV 11.2 Immature Gran % (Auto) 0.2 Neut % (Auto) 65.7 Lymph % (Auto) 16.4 Levy % (Auto) 14.2 Eos % (Auto) 3.0 Baso % (Auto) 0.5 Neut # (Auto) 3.92 Lymph # (Auto) 0.98 L Levy # (Auto) 0.85 H Eos # (Auto) 0.18 Baso # (Auto) 0.03 Immature Gran # (Auto) 0.01 Sodium Potassium Chloride Carbon Dioxide Anion Gap BUN Creatinine Est Cr Clr Drug Dosing Est GFR ( Amer) Est GFR (Non-Af Amer) BUN/Creatinine Ratio Glucose Calcium Magnesium Total Bilirubin AST ALT Alkaline Phosphatase Troponin I High Sens 24.0 H Total Protein Albumin Globulin Albumin/Globulin Ratio Nasal Screen MRSA (PCR) Digoxin Adenovirus (PCR) Not Detected B. pertussis DNA (PCR) Not Detected B.parapertussis DNA PCR Not Detected C. pneumoniae DNA (PCR) Not Detected Coronavirus OC43 (PCR) Not Detected Coronavirus HKU1 (PCR) Not Detected Coronavirus 229E (PCR) Not Detected SARS-CoV-2 (PCR) Not Detected Coronavirus NL63 (PCR) Not Detected Human Metapneumovir PCR Not Detected Influenza Type A (PCR) Not Detected Influenza Type B (PCR) Not Detected M. pneumoniae (PCR) Not Detected Parainfluenza 1 (PCR) Not Detected Parainfluenza 2 (PCR) Not Detected Parainfluenza 3 (PCR) Not Detected Parainfluenza 4 (PCR) Not Detected RSV (PCR) Not Detected Entero/Rhino (PCR) Not Detected 12/11/22 06:04 WBC RBC Hgb Hct MCV MCH MCHC RDW Std Deviation RDW Coeff of Imelda Plt Count MPV Immature Gran % (Auto) Neut % (Auto) Lymph % (Auto) Levy % (Auto) Eos % (Auto) Baso % (Auto) Neut # (Auto) Lymph # (Auto) Levy # (Auto) Eos # (Auto) Baso # (Auto) Immature Gran # (Auto) Sodium 139 Potassium 3.6 Chloride 101 Carbon Dioxide 35 H Anion Gap 3 BUN 18 Creatinine 0.79 Est Cr Clr Drug Dosing 81.9 Est GFR ( Amer) 98.3 Est GFR (Non-Af Amer) 84.8 BUN/Creatinine Ratio 22.8 H Glucose 87 Calcium 8.6 Magnesium 1.9 Total Bilirubin 1.6 H AST 15 ALT 10 Alkaline Phosphatase 66 Troponin I High Sens Total Protein 5.8 L Albumin 3.3 L Globulin 2.5 Albumin/Globulin Ratio 1.3 Nasal Screen MRSA (PCR) Digoxin Adenovirus (PCR) B. pertussis DNA (PCR) B.parapertussis DNA PCR C. pneumoniae DNA (PCR) Coronavirus OC43 (PCR) Coronavirus HKU1 (PCR) Coronavirus 229E (PCR) SARS-CoV-2 (PCR) Coronavirus NL63 (PCR) Human Metapneumovir PCR Influenza Type A (PCR) Influenza Type B (PCR) M. pneumoniae (PCR) Parainfluenza 1 (PCR) Parainfluenza 2 (PCR) Parainfluenza 3 (PCR) Parainfluenza 4 (PCR) RSV (PCR) Entero/Rhino (PCR) Diagnostic Findings CXR 12/10/22: FINDINGS: No pneumothorax. The heart remains enlarged. Bibasilar densities and bilateral pleural effusions persist. Mild interstitial pulmonary edema is also unchanged. There are calcifications within the aortic knob. IMPRESSION: 1. Mild interstitial pulmonary edema, unchanged. 2. Bibasilar densities and bilateral pleural effusions also persist. CTAP 12/10/22: IMPRESSION: 1. The previously noted calculus within the inferior pole left kidney is now present within the distal left ureter measuring 4 mm. No significant associated obstructive uropathy. 2. Cardiomegaly with small to moderate pleural effusions and interstitial pulmonary edema. 3. Dependent bibasilar compressive atelectasis with additional patchy opacities possibly representing alveolar pulmonary edema vs pneumonia. PG Care Time/CCT Total # of Minutes Spent Total Time Spent with Patient: Total time spent is greater than 50% in coordination of care (as documented) at patient's floor/unit and/or counseling patient:34 [place] [address] INT INP/OBS CARE 2/55MIN Patient Type Established History Detailed Exam Detailed Medical Decision Making High Complexity Diagnoses PAF (paroxysmal atrial fibrillation) I48.0 Atrial fibrillation with controlled ventricular rate I48.91 LVH (left ventricular hypertrophy) I51.7 Left ureteral calculus N20.1 Preoperative cardiovascular examination Z01.810 Elevated troponin I level R77.8 Time Spent (min) 56
[2022-12-11] MEDS: ACETAMINOPHEN 500 MG TAB PO SCH ×2 (10:01→19:47)
[2022-12-11] MEDS: FLUDROCORTISONE ACETATE 0.1 MG TAB PO SCH (10:18)
--- NOTE | 2022-12-11 18:47 | Hospitalist Progress Note ---
Date of Service December 11, 2022 Assessment & Plan (1) Acute on chronic heart failure with preserved ejection fraction (HFpEF): Plan: Presenting with fevers at home to 101.3F. Recent admission for Sepsis 2nd to urinary source/possible aspiration pneumonia and completed course IV abx 7 days inpatient and sent on Cefdinir and short course of diuretics for fluid in lungs (ECHO w/ normal LV size/function, EF 55-60%, small pericardial effusion w/o evidence for tamponade - compared to prior study 2020, effusion appears slightly larger) CXR w/ mild interstital edema, bibasilar densities and b/l effusions Requiring 2 L nasal cannula but pulse ox is improving Likely secondary to recent rapid atrial fibrillation-seen by cardiology recently had digoxin increased to 250 mcg once daily Also with recent hospitalization as above and received copious IV fluids Diuresing with IV Lasix and having improvement. Weight is down 4.7 kg but still above baseline weight Feeling much better -Continue supplemental O2 to keep pulse ox greater than 92%-wean off as able to -Continue IV Lasix on a daily basis if renal function remains stable -Follow BMP and magnesium and replace electrolytes as needed-give potassium today -Strict I's and O's, daily weights, low-sodium diet (2) Nephrolithiasis: Plan: recent admission for Sepsis 2nd urinary source/possible aspiration pneumonia temps at home 101.1F With 4 mm left ureterolithiasis in the distal ureter here, no hydronephrosis, no MAURA Urinalysis appears contaminated but urine culture is growing gram-negative rods Blood cultures-no growth to date Appreciate urology consultation-trying to avoid cystoscopy and ureteroscopy if possible given comorbidities Hoping that stone will pass on its own Hematuria and left flank pain have resolved on 12/11 No further fevers -Strain urine -Follow BMP (3) Pneumonia: Plan: possible, with pleural effusions and compressive atelectasis with possible p neumonia on chest x-ray With recent hospitalization, will treat for gram-negative pneumonia. MRSA swab was negative-no need for treatment for MRSA pneumonia -Continue cefepime -Follow blood cultures-no growth to date -Pulmonary toilet -Supplemental O2 as needed Follow CBC, BMP (4) PAF (paroxysmal atrial fibrillation): Plan: Remains in and out of atrial fibrillation here, rates have been elevated at home as per outpatient cardiology notes Digoxin was recently increased, digoxin level here is acceptable at 1.2 Rates are now much improved in the 60s and was in sinus rhythm overnight on 12/10 -Continue telemetry monitoring -Continue Eliquis -Continue digoxin Appreciate cardiology consultation (5) Parkinson's disease: Plan: continue home meds of Sinemet-- Parkinson w/ neurogenic orthostatic hypotension and on fludrocortisone, midodrine Fall precautions/aspiration precautions He is nonambulatory (6) Dementia: Plan: w/ parkinsons frequent orientation/maintain sleep cycle (7) Hyperbilirubinemia: Plan: Bilirubin elevated at 1.6 but has been elevated multiple times in the past Could be [place] syndrome Follow LFTs (8) Anemia: Plan: Hemoglobin mildly low at 10.8, down from 11.3 previously. Baseline is around 13 in the last year Some of this may be acute blood loss anemia given ongoing hematuria No bloody stools noted Normocytic Recent TSH is normal Check B12, folate, iron studies in the morning Follow CBC Plan DVT prophylaxis-Eliquis Disposition-continued stay in PCU Improving, possible discharge in the next 2 to 3 days Admission and Anticipated Discharge Date Admission Date: December 10, 2022 Subjective Patient reports feeling much better today. He took 2 Tylenol this morning has not had any more left flank pain all day. No further hematuria. No shortness of breath or cough. He is trying to move his bowels on the bedpan when I saw him. Telemetry with rate controlled atrial fibrillation with rates in the 60s and also had some normal sinus rhythm overnight Review of Systems Review of Systems: All systems reviewed & are unremarkable except as noted in HPI & below Physical Exam Constitutional: WD/WN, vitals as above Eyes: + anicteric sclerae Neck: trachea midline, no thyromegaly Respiratory: normal respiratory effort; no cough Auscultation: + diminished lung sounds (At the bases bilaterally); no crackles, no rhonchi and no wheezes Cardiovascular: Rate/Rhythm: regular rate and + irregularly irregular Heart Sounds: no murmur Extremities: no edema Gastrointestinal (Abdomen): normal bowel sounds, soft, nontender, no hepatosplenomegaly Musculoskeletal: Extremities: extremities normal to inspection; no cyanosis and no clubbing Skin: no rashes, warm and dry Neurologic: Bradykinesia, masked facies Psychiatric: A+Ox3, euthymic affect Lymphatic: no lymphedema Results & Data Results & Data Vital Signs (Past 12 Hours) Vital Signs Temp Pulse Pulse Resp BP Pulse Ox O2 Del Method 12/11/22 14:08 117 H 12/11/22 16:00 37.0 C 76 18 100/75 97 Nasal Cannula 12/11/22 11:59 36.7 C 88 18 97/53 L 97 Room Air 12/11/22 07:45 Nasal Cannula 12/11/22 08:54 101 H 12/11/22 07:46 36.5 C 73 18 142/63 H 97 Nasal Cannula 12/11/22 07:31 68 12/11/22 07:24 36.4 C L 70 16 139/81 97 Nasal Cannula O2 Flow Rate 12/11/22 14:08 12/11/22 16:00 2 12/11/22 11:59 12/11/22 07:45 12/11/22 08:54 12/11/22 07:46 2 12/11/22 07:31 12/11/22 07:24 2 Laboratory Results CBC, BMP, LFTs, urine culture, blood cultures reviewed PG Care Time/CCT Total # of Minutes Spent Total Time Spent with Patient: Total time spent is greater than 50% in coordination of care (as documented) at patient's floor/unit and/or counseling patient: Coding Level of Care Code 86300 SUB INP/OBS CARE 3/50MIN Diagnoses Acute on chronic heart failure with preserved ejection fraction (HFpEF) I50.33 Nephrolithiasis N20.0 Pneumonia J18.9 PAF (paroxysmal atrial fibrillation) I48.0 Parkinson's disease G20 Dementia F03.90 Hyperbilirubinemia E80.6 Anemia D64.9
[2022-12-11] MEDS: MULTIVITAMIN TAB PO SCH (19:46)
[2022-12-11] MEDS: ATORVASTATIN 20 MG TAB PO SCH (19:47)
[2022-12-11] MEDS: DONEPEZIL HCL 10 MG TAB PO SCH (19:48)
[2022-12-11] MEDS: clonazePAM 1 MG TAB PO SCH (19:50)
[2022-12-11] MEDS: MELATONIN 3 MG TAB PO SCH (19:50)
[2022-12-12] MEDS: CEFEPIME 2,000 MG in SYRINGE 0 ML IV SCH ×3 (06:20→20:20)
[2022-12-12] MEDS: LEVOTHYROXINE SODIUM 50 MCG TABLET PO SCH (06:20)
[2022-12-12 07:01] LABS: Basophils # (auto) 0.03 K/uL (0-0.2); Basophils % (auto) 0.7 %; Eosinophils # (auto) 0.25 K/uL (0-0.50); Eosinophils % (auto) 5.4 %; Hematocrit (blood only) 32.4 % (42.0-52.0); Immature Granulocytes # (auto) 0.01 K/uL (0.01-0.20); Immature Granulocytes % (auto) 0.2 %; Lymphocytes # (auto) 0.92 K/uL (1.2-3.4); Mean Corpuscular Hemoglobin 30.7 pg (25.0-34.0); Mean Corpuscular Volume 90.5 fL (80.0-100.0); Mean Platelet Volume 11.2 fL (9.4-12.4); Monocytes # (auto) 0.63 K/uL (0.11-0.59); Monocytes % (auto) 13.7 %; Neutrophils # (auto) 2.76 K/uL (1.40-6.50); Platelet Count 179 K/uL (130-400); RDW Coefficient of Variation 13.2 % (11.5-14.5); RDW Standard Deviation 43.8 fL (36.4-46.3); Red Blood Count 3.58 M/uL (4.70-6.10)
[2022-12-12 07:32] LABS: Albumin Globulin Ratio 1.1 (0.9-2); Albumin Level 3.1 gm/dl (3.4-5.0); BUN Creatinine Ratio 28.6 (10-20); Calcium 8.6 mg/dl (8.6-10.3); Creatinine Clr Calc Pharmacy 92.4 ml/min; Est GFR (African American) 103.3 ml/min; Est GFR (Non-African American) 89.1 ml/min; Globulin 2.7 gm/dl (2.5-4.0); Magnesium 1.9 mg/dl (1.7-2.4); Potassium 3.5 mmol/L (3.5-5.1); Total Protein 5.8 gm/dl (6.0-8.3)
[2022-12-12 07:42] LABS: Vitamin B12 454 pg/ml (180-914)
[2022-12-12] MEDS: APIXABAN 5 MG TABLET PO SCH ×2 (08:12→20:21)
[2022-12-12] MEDS: VENLAFAXINE HCL XR 37.5 MG CAPXR PO SCH (08:12)
[2022-12-12] MEDS: FLUDROCORTISONE ACETATE 0.1 MG TAB PO SCH (08:13)
[2022-12-12] MEDS: DIGOXIN 0.25 MG TAB PO SCH (08:13)
[2022-12-12] MEDS: CARBIDOPA/LEVODOPA 25-250 1 EA TAB PO SCH ×4 (08:14→20:21)
[2022-12-12] MEDS: CHOLECALCIFEROL 1,000 UNITS 25 MCG TAB PO SCH ×3 (08:15→20:20)
[2022-12-12] MEDS: MIDODRINE HCL 2.5 MG TAB PO SCH ×3 (08:16→16:02)
[2022-12-12] MEDS: POLYETHYLENE (MIRALAX) 17 GM PACK PO SCH (08:18)
[2022-12-12 08:33] LABS: Ferritin 228.4 ng/ml (8-388)
--- NOTE | 2022-12-12 09:12 | Urology Progress Note ---
Date of Service December 12, 2022 Assessment & Plan (1) Left ureteral calculus: Plan: Follow-up of left ureteral calculus. Patient afebrile, hemodynamically stable. Labs reviewed - creatinine 0.70, WBC 4.60, Hgb 11.0. Subjectively feeling better since arrival, no flank pain at present. Urine culture 12/09 grew out Pseudomonas, sensitive to IV Cefepime. Blood cultures 12/10 no growth x 48 hours. He was evaluated by cardiology for urologic procedure - appreciate input. Per cardiology - "Patient is a low to intermediate cardiac risk for his upcoming urologic procedure. Patient should take his usual doses of Digoxin, Fludrocortisone,and Midodrine the morning of surgery with sips of water." Recommend stent placement given obstructing ureteral stone and presence of urinary tract infection requiring IV antibiotics. Patient had breakfast this am. Will plan for stent placement tomorrow presuming he remains stable. Discussed plan with patient and his and they are agreeable to surgical intervention as discussed. - Proceed with cystoscopy, left retrograde pyelogram and left ureteral stent placement. - Make NPO at [place]. - Continue supportive care, antibiotics and management per primary team. - will follow. Admission and Anticipated Discharge Date Admission Date: December 10, 2022 Supervising Physician Co-Signing Physician Notes Discussed patient with CLAUDIA. Agree with plan. As patient was eating breakfast this morning, will plan for cystoscopy with stent placement tomorrow given that he is clinically stable. Subjective Patient seen and examined at bedside this morning. He is awake, alert and resting in bed. No acute issues overnight. Subjectively feeling better today. Denies flank or abdominal pain. No nausea or vomiting. No fever or chills. Voiding via condom catheter, denies hematuria. Review of Systems Constitutional: as per Subjective / HPI Gastrointestinal: as per Subjective / HPI Genitourinary: + as per Subjective / HPI Physical Exam Constitutional: well developed and well nourished; no acute distress nontoxic Respiratory: no respiratory distress and no labored breathing O2 via nasal cannula Gastrointestinal (Abdomen): Inspection/Auscultation: abdomen normal to inspection; abdomen not distended Percussion/Palpation: abdomen soft; abdomen nontender and no guarding Musculoskeletal: Head/Neck/Chest: normocephalic and head atraumatic Neurologic: moves all extremities and awake Psychiatric: Orientation: alert and oriented x 3 Genitourinary: Condom catheter in place, draining clear yellow urine Results & Data Vital Signs (Past 12 Hours) Vital Signs Temp Pulse Pulse Resp BP Pulse Ox O2 Del Method 12/12/22 08:13 83 12/12/22 07:56 36.5 C 83 18 115/69 92 Nasal Cannula 12/12/22 03:40 36.9 C 80 18 149/65 H 93 Nasal Cannula 12/12/22 00:00 36.8 C 79 20 133/70 91 Nasal Cannula O2 Flow Rate 12/12/22 08:13 12/12/22 07:56 2 12/12/22 03:40 3 12/12/22 00:00 3 PG Care Time/CCT Total # of Minutes Spent Total Time Spent with Patient: Total time spent is greater than 50% in coordination of care (as documented) at patient's floor/unit and/or counseling patient: Coding Level of Care Code 76433 SUB INP/OBS CARE 2/35MIN Diagnoses Left ureteral calculus N20.1
[2022-12-12] MEDS ORDERED: FUROSEMIDE INJ 20 MG/2 ML VIAL IV ONE (18:00)
--- NOTE | 2022-12-12 18:00 | Hospitalist Progress Note ---
Date of Service December 12, 2022 Assessment & Plan (1) Acute on chronic heart failure with preserved ejection fraction (HFpEF): Plan: Presenting with fevers at home to 101.3F. Recent admission for Sepsis 2nd to urinary source/possible aspiration pneumonia and completed course IV abx 7 days inpatient and sent on Cefdinir and short course of diuretics for fluid in lungs (ECHO w/ normal LV size/function, EF 55-60%, small pericardial effusion w/o evidence for tamponade - compared to prior study 2020, effusion appears slightly larger) CXR w/ mild interstital edema, bibasilar densities and b/l effusions Requiring 2 L nasal cannula but pulse ox is improving Likely secondary to recent rapid atrial fibrillation-seen by cardiology recently had digoxin increased to 250 mcg once daily Also with recent hospitalization as above and received copious IV fluids Diuresing with IV Lasix and having improvement. Weight is down 4.9 kg but still above baseline weight Feeling much better -Continue supplemental O2 to keep pulse ox greater than 92%-wean off as able to -Continue IV Lasix on a daily basis if renal function remains stable-give another dose of 20 mg IV x1 today -Follow BMP and magnesium and replace electrolytes as needed -Strict I's and O's, daily weights, low-sodium diet (2) Nephrolithiasis: Plan: recent admission for Sepsis 2nd urinary source/possible aspiration pneumonia temps at home 101.1F With 4 mm left ureterolithiasis in the distal ureter here, no hydronephrosis, no MAURA Urinalysis appears contaminated but urine culture is growing Pseudomonas aeruginosa with intermediate sensitivity to fluoroquinolones Blood cultures-no growth to date Appreciate urology consultation-initially trying to avoid cystoscopy and ureteroscopy if possible given comorbidities, however now going for procedure on 12/16/1930 -Continue Tylenol as needed for pain -No further fevers -Strain urine -Follow BMP (3) Pneumonia: Plan: possible, with pleural effusions and compressive atelectasis with possible pneumonia on chest x-ray With recent hospitalization, will treat for gram-negative pneumonia. MRSA swab was negative-no need for treatment for MRSA pneumonia -Continue cefepime -Follow blood cultures-no growth to date -Pulmonary toilet -Supplemental O2 as needed Follow CBC, BMP (4) PAF (paroxysmal atrial fibrillation): Plan: Remains in and out of atrial fibrillation here, rates have been elevated at home as per outpatient cardiology notes Digoxin was recently increased, digoxin level here is acceptable at 1.2 Rates are now much improved in the 60s and was in sinus rhythm overnight on 12/10 -Continue telemetry monitoring -Continue Eliquis -Continue digoxin Appreciate cardiology consultation (5) Parkinson's disease: Plan: continue home meds of Sinemet-- Parkinson w/ neurogenic orthostatic hypotension and on fludrocortisone, midodrine Fall precautions/aspiration precautions He is nonambulatory (6) Dementia: Plan: w/ parkinsons frequent orientation/maintain sleep cycle (7) Hyperbilirubinemia: Plan: Bilirubin elevated at 1.6 but has been elevated multiple times in the past-back to normal today Could be Gilbert's syndrome - alkaline phosphatase alsoMildly elevated - Follow LFTs (8) Anemia: Plan: Hemoglobin mildly low at 10.8-11.3 previously. Baseline is around 11-13 in the last 10 to 15 years on review Some of this may be acute blood loss anemia given ongoing hematuria He has had a colonoscopy within the last 5 years and was told he never needed another 1. Has never had an EGD-recommend this as an outpatient No bloody stools noted Normocytic Recent TSH is normal B12, folate are normal Iron studies show iron deficiency with transferrin saturation of 12% Follow CBC Patient cannot tolerate oral iron-give Venofer 300 mg IV x1 now-can repeat the dose in a couple days Plan DVT prophylaxis-Eliquis Disposition-continued stay in PCU Improving, possible discharge in the next 2 days after recovery from ureteral stent placement Care discussed with at the bedside Consult PT/OT Admission and Anticipated Discharge Date Admission Date: December 10, 2022 Subjective Patient feeling better today. He has not had any left flank pain all day. No abdominal pains. No shortness of breath or cough. His hematuria has cleared up Telemetry with atrial fibrillation with rates in the 60s to 70s Physical Exam Constitutional: WD/WN, vitals as above Eyes: + anicteric sclerae Neck: trachea midline, no thyromegaly Respiratory: normal respiratory effort; no cough Auscultation: + diminished lung sounds (At the bases bilaterally); no crackles, no rhonchi and no wheezes Cardiovascular: Rate/Rhythm: regular rate and + irregularly irregular Heart Sounds: no murmur Extremities: no edema Gastrointestinal (Abdomen): normal bowel sounds, soft, nontender, no hepatosplenomegaly Musculoskeletal: Extremities: extremities normal to inspection; no cyanosis and no clubbing Skin: no rashes, warm and dry Psychiatric: A+Ox3, euthymic affect Lymphatic: no lymphedema Results & Data Results & Data Vital Signs (Past 12 Hours) Vital Signs Temp Pulse Pulse Resp BP Pulse Ox Pulse Ox 12/12/22 17:25 36.7 C 68 18 172/84 H 94 12/12/22 14:55 68 12/12/22 12:00 91 12/12/22 10:48 36.5 C 75 18 133/80 96 12/12/22 09:22 70 12/12/22 08:13 83 12/12/22 07:56 36.5 C 83 18 115/69 92 O2 Del Method O2 Del Method O2 Flow Rate 12/12/22 17:25 Room Air 12/12/22 14:55 12/12/22 12:00 Room Air 12/12/22 10:48 Room Air 12/12/22 09:22 12/12/22 08:13 12/12/22 07:56 Nasal Cannula 2 Laboratory Results CBC, BMP, iron studies, LFTs, magnesium reviewed Blood cultures-remain no growth to date B12 and folate are normal PG Care Time/CCT Total # of Minutes Spent Total Time Spent with Patient: Total time spent is greater than 50% in coordination of care (as documented) at patient's floor/unit and/or counseling patient: Coding Level of Care Code 22567 SUB INP/OBS CARE 3/50MIN Diagnoses Acute on chronic heart failure with preserved ejection fraction (HFpEF) I50.33 Nephrolithiasis N20.0 Pneumonia J18.9 PAF (paroxysmal atrial fibrillation) I48.0 Parkinson's disease G20 Dementia F03.90 Hyperbilirubinemia E80.6 Anemia D64.9
[2022-12-12] MEDS ORDERED: IRON SUCROSE 300 MG in SODIUM CHLORIDE 0.9% 250 ML IV ONE (18:30)
[2022-12-12] MEDS: MULTIVITAMIN TAB PO SCH (20:20)
[2022-12-12] MEDS: DONEPEZIL HCL 10 MG TAB PO SCH (20:20)
[2022-12-12] MEDS: clonazePAM 1 MG TAB PO SCH (20:20)
[2022-12-12] MEDS: ATORVASTATIN 20 MG TAB PO SCH (20:20)
[2022-12-12] MEDS: MELATONIN 3 MG TAB PO SCH (20:20)
[2022-12-13] MEDS: CEFEPIME 2,000 MG in SYRINGE 0 ML IV SCH ×3 (04:41→21:22)
[2022-12-13] MEDS: LEVOTHYROXINE SODIUM 50 MCG TABLET PO SCH (04:42)
[2022-12-13 06:49] LABS: Basophils # (auto) 0.03 K/uL (0-0.2); Basophils % (auto) 0.6 %; Eosinophils # (auto) 0.26 K/uL (0-0.50); Eosinophils % (auto) 5.2 %; Hemoglobin 11.5 g/dl (14.0-18.0); Immature Granulocytes # (auto) 0.02 K/uL (0.01-0.20); Immature Granulocytes % (auto) 0.4 %; Lymphocytes # (auto) 1.05 K/uL (1.2-3.4); Lymphocytes % (auto) 21.1 %; Mean Corpuscular Hemoglobin 30.7 pg (25.0-34.0); Mean Corpuscular Hgb Conc 32.9 g/dL (32.0-36.0); Mean Corpuscular Volume 93.3 fL (80.0-100.0); Mean Platelet Volume 11.1 fL (9.4-12.4); Monocytes # (auto) 0.77 K/uL (0.11-0.59); Monocytes % (auto) 15.5 %; Neutrophils # (auto) 2.84 K/uL (1.40-6.50); Neutrophils % (auto) 57.2 %; Platelet Count 191 K/uL (130-400); RDW Coefficient of Variation 13.2 % (11.5-14.5); RDW Standard Deviation 45.5 fL (36.4-46.3); Red Blood Count 3.75 M/uL (4.70-6.10); White Blood Count 4.97 K/ul (4.8-10.8)
[2022-12-13 07:02] LABS: BUN Creatinine Ratio 24.7 (10-20); Calcium 8.8 mg/dl (8.6-10.3); Creatinine Clr Calc Pharmacy 72.7 ml/min; Est GFR (African American) 93.6 ml/min; Est GFR (Non-African American) 80.8 ml/min; Magnesium 1.9 mg/dl (1.7-2.4); Potassium 3.5 mmol/L (3.5-5.1)
--- NOTE | 2022-12-13 08:17 | Hospitalist Progress Note ---
Date of Service December 13, 2022 Assessment & Plan (1) Acute on chronic heart failure with preserved ejection fraction (HFpEF): Plan: -Presented with fevers at home to 101.3F. -Recent admission for Sepsis 2nd to urinary source/possible aspiration pneumonia and completed course IV abx 7 days inpatient and sent on Cefdinir and short course of diuretics for pulm edema -CXR w/ mild interstitial edema, bibasilar densities and b/l effusions, repeat similar -Requiring 2 L nasal cannula still at this time, though today he is post- procedure -Fluid overload likely secondary to recent rapid atrial fibrillation, continue increased digoxin 250 mcg daily -Also with recent hospitalization as above and received copious IV fluids -Continue to diurese with IV Lasix, with daily BMP -Wean o2 as able to goal SpO2 >92% -Strict I's and O's, daily weights, low-sodium diet (2) Nephrolithiasis: Plan: -Recent admission for Sepsis 2nd urinary source/possible aspiration pneumonia -Temps at home 101.1F -With 4 mm left ureterolithiasis in the distal ureter here, no hydronephrosis, no MAURA -Urinalysis appears contaminated but urine culture is growing >100k CFU Pseudomonas aeruginosa with intermediate sensitivity to fluoroquinolones, continue cefepime at this time -Blood cultures collected 12/10 - no growth to date -Appreciate urology consultation-initially trying to avoid cystoscopy and ureteroscopy if possible given comorbidities, however 12/13 had cystoscopy and stent placement after discussion with patient/ by Urology team -Did have some post-procedural asymptomatic hypotension, typical for patient and is on midodrine chronically, continue this and monitor fluid status -Continue Tylenol as needed for pain -No further fevers -Strain urine -Follow BMP (3) Pneumonia: Plan: -Possible, with pleural effusions and compressive atelectasis with possible pneumonia on chest x-ray -With recent hospitalization, will continue to treat for gram-negative pneumonia. MRSA swab was negative-no need for treatment for MRSA pneumonia -Continue cefepime for now, start date 12/10 -Follow blood cultures- no growth to date -Pulmonary toilet -Supplemental O2 as needed (4) PAF (paroxysmal atrial fibrillation): Plan: -Patient's HR overnight and today 40s-70s, improved greatly from admission -Digoxin was recently increased to 0.250 daily, digoxin level here is acceptable at 1.2, continue this dose -Continue telemetry monitoring -Continue Eliquis -Appreciate cardiology consultation (5) Parkinson's disease: Plan: -Continue home Sinemet-- Parkinson w/ neurogenic orthostatic hypotension and on fludrocortisone, midodrine -Fall precautions/aspiration precautions -He is nonambulatory at baseline (6) Dementia: Plan: -W/ Parkinsons -Frequent orientation/maintain sleep cycle (7) Hyperbilirubinemia: Plan: -Bilirubin elevated at 1.6 but has been elevated multiple times in the past-back to normal on repeat checks, no GI complaints (8) Anemia: Plan: Baseline Hgb is around 11-13, normocytic, 11.5 on 12/13 and will repeat in AM given post-procedure He has had a colonoscopy within the last 5 years and was told he did not need further screening colonoscopies. Has never had an EGD-recommend this as an outpatient No bloody stools noted B12, folate, TSH are normal Iron studies show iron deficiency, received Venofer 300mg IV x1 while admitted Plan DVT prophylaxis-Eliquis Disposition-continued stay in PCU for now Improving, possible discharge in the next few days after recovery from ureteral stent placement Care discussed with at the bedside Admission and Anticipated Discharge Date Admission Date: December 10, 2022 Subjective Overnight had difficulty sleeping, no complaints today of chest pain or trouble breathing on 2LNC, no fevers. For urologic procedure today. Feels tired otherwise no complaints. Review of Systems Review of Systems: All systems reviewed & are unremarkable except as noted in Subjective Physical Exam Constitutional: WD/WN, vitals as above Respiratory: normal respiratory effort, lungs clear to auscultation Cardiovascular: RRR, no murmur, no edema Gastrointestinal (Abdomen): normal bowel sounds, soft, nontender, no hepatosplenomegaly Skin: no rashes, warm and dry Psychiatric: A+Ox3, euthymic affect Results & Data Results & Data Vital Signs (Past 12 Hours) Vital Signs Temp Pulse Pulse Resp BP Pulse Ox O2 Del Method 12/13/22 07:32 36.4 C L 71 19 136/75 94 Room Air 12/13/22 04:00 12/13/22 03:22 36.6 C 70 20 124/65 96 Nasal Cannula 12/12/22 23:53 90 12/12/22 20:20 Room Air 12/12/22 22:53 36.5 C 95 H 20 139/71 92 Nasal Cannula O2 Del Method O2 Flow Rate 12/13/22 07:32 12/13/22 04:00 Nasal Cannula 12/13/22 03:22 2 12/12/22 23:53 12/12/22 20:20 12/12/22 22:53 2 PG Care Time/CCT Total # of Minutes Spent Total Time Spent with Patient: Total time spent is greater than 50% in coordination of care (as documented) at patient's floor/unit and/or counseling patient: Coding Level of Care Code 51534 SUB INP/OBS CARE 350MIN Diagnoses Acute on chronic heart failure with preserved ejection fraction (HFpEF) I50.33 Nephrolithiasis N20.0 Pneumonia J18.9 PAF (paroxysmal atrial fibrillation) I48.0 Parkinson's disease G20 Dementia F03.90 Hyperbilirubinemia E80.6 Anemia D64.9
--- NOTE | 2022-12-13 08:42 | XRay Report ---
XR chest 1V portable HISTORY: eval pulm edema and bibasilar consolidations, COMPARISON: Chest 12/10/2022. FINDINGS: No pneumothorax. The cardiac silhouette remains enlarged. Pulmonary edema, bilateral pleura l effusions, and perihilar airspace opacities have progressed. There are calcifications within the ao rtic knob. IMPRESSION: Interval progression of the moderate pulmonary edema, perihilar airspace opacities, and bilateral ple ural effusions. ACT 112: Negative or not required by law. Electronically signed by: Micha Colud M.D. 12/13/2022 8:41 AM
[2022-12-13] MEDS: VENLAFAXINE HCL XR 37.5 MG CAPXR PO SCH (09:47)
[2022-12-13] MEDS: CHOLECALCIFEROL 1,000 UNITS 25 MCG TAB PO SCH ×3 (09:48→21:22)
[2022-12-13] MEDS: FLUDROCORTISONE ACETATE 0.1 MG TAB PO SCH (09:48)
[2022-12-13] MEDS: CARBIDOPA/LEVODOPA 25-250 1 EA TAB PO SCH ×4 (09:48→21:23)
[2022-12-13] MEDS: DIGOXIN 0.25 MG TAB PO SCH (09:48)
[2022-12-13] MEDS: MIDODRINE HCL 2.5 MG TAB PO SCH ×3 (09:49→16:24)
[2022-12-13] MEDS: POLYETHYLENE (MIRALAX) 17 GM PACK PO SCH (10:38)
[2022-12-13] MEDS: APIXABAN 5 MG TABLET PO SCH ×2 (10:38→21:23)
--- NOTE | 2022-12-13 10:54 | Urology Progress Note ---
Date of Service December 13, 2022 Assessment & Plan (1) Left ureteral calculus: Plan: Follow-up of left ureteral calculus. Patient afebrile, hemodynamically stable. Labs reviewed - creatinine 0.89, WBC 4.97, Hgb 11.5. Urine culture 12/09 grew out Pseudomonas, sensitive to IV Cefepime. Blood cultures 12/10 showing no growth x 48 hours. He was evaluated by cardiology for urologic procedure. Patient considered a low to intermediate cardiac risk for his upcoming urologic procedure. Patient is agreeable to proceed with surgical intervention with left ureteral stent placement today as previously discussed. - Proceed with cystoscopy, left retrograde pyelogram and left ureteral stent placement. - Risks and benefits of surgery to be reviewed with patient by Dr. Mistry. - OR notified. - Keep NPO for procedure. - Will continue with scheduled cefepime for preoperative antibiotic coverage. - Continue supportive care, antibiotics and management per primary team. - will follow. Admission and Anticipated Discharge Date Admission Date: December 10, 2022 Supervising Physician Co-Signing Physician Notes 82-year-old male with left ureteral stone. We will plan for cystoscopy, left retrograde pyelogram, left ureteral stent placement under anesthesia. We reviewed risks and benefits of the surgery including risk of bleeding, infection, injury to urinary tract, inability to place the stent. We reviewed the need for potential additional surgery if we do not remove the stone today. He and his expressed understanding and agreed with the above plan. Subjective Patient seen and examined at bedside this morning. He is asleep, arouses to his name. No acute issues overnight. Subjectively doing well. He denies flank pain. No hematuria. No nausea or vomiting. No fever or chills. No shortness of breath. Review of Systems Review of Systems: All systems reviewed & are unremarkable except as noted in HPI & below Physical Exam Constitutional: well developed and well nourished; no acute distress and not ill appearing Respiratory: no respiratory distress and no labored breathing O2 via nasal cannula Gastrointestinal (Abdomen): Inspection/Auscultation: abdomen normal to inspection; abdomen not distended Musculoskeletal: Head/Neck/Chest: normocephalic and head atraumatic Psychiatric: Orientation: oriented x 3 Results & Data Vital Signs (Past 12 Hours) Vital Signs Temp Pulse Pulse Resp BP Pulse Ox O2 Del Method 12/13/22 07:32 36.4 C L 71 19 136/75 94 Room Air 12/13/22 04:00 12/13/22 03:22 36.6 C 70 20 124/65 96 Nasal Cannula 12/12/22 23:53 90 12/12/22 22:53 36.5 C 95 H 20 139/71 92 Nasal Cannula O2 Del Method O2 Flow Rate 12/13/22 07:32 12/13/22 04:00 Nasal Cannula 12/13/22 03:22 2 12/12/22 23:53 12/12/22 22:53 2 PG Care Time/CCT Total # of Minutes Spent Total Time Spent with Patient: Total time spent is greater than 50% in coordination of care (as documented) at patient's floor/unit and/or counseling patient: Coding Level of Care Code 92104 SUB INP/OBS CARE 10/09MIN Diagnoses Left ureteral calculus N20.1
[2022-12-13] MEDS ORDERED: FUROSEMIDE 40 MG/4 ML VIAL IV ONE (12:12)
--- NOTE | 2022-12-13 13:09 | Anesthesiology Consultation ---
Date of Service December 13, 2022 Assessment & Plan ASA ASA3 Proposed Anesthesia Anesthesia Type: MAC Risk / Benefits Reviewed With: PT / POA / Parent / Guardian, Accepts Plan and Informed Consent Obtained History Surgery Operation Date: 12/13/22 13:30 Proposed Procedures p Cystoscopy Left Retrograde Pyelogram Stent Placement - Micheal Mistry MD Height/Weight Height: 6 ft Weight: 79.832 kg Allergies Allergy/AdvReac Type Severity Reaction Status Date / Time No Known Allergies Allergy Verified 12/03/22 14:09 Medications Home Medications Medication Instructions Recorded Confirmed Last Taken atorvastatin 20 mg tablet (Lipitor) 20 mg PO QAM 05/11/19 12/03/22 11/13/22 cholecalciferol (vitamin D3) 50 2,000 unit PO TID 05/11/19 12/03/22 11/13/22 mcg (2,000 unit) capsule (Vitamin D3) clonazepam 1 mg tablet 2 mg PO HS #45 tabs 05/11/19 12/03/22 11/12/22 donepezil 10 mg tablet (Aricept) 10 mg PO HS 05/11/19 12/03/22 11/12/22 levothyroxine 50 mcg tablet 50 mcg PO QAM 06/30/19 12/03/22 11/13/22 (Synthroid) melatonin 10 mg tablet 10 mg PO HS 06/30/19 12/03/22 11/12/22 multivitamin (Daily Multi-Vitamin 1 tab PO PM 06/30/19 12/03/22 11/12/22 tablet) fludrocortisone 0.1 mg tablet 0.2 mg PO QAM 09/16/21 12/03/22 11/13/22 sennosides 8.6 mg tablet (Senokot) 17.2 mg PO BID PRN Constipation 09/16/21 12/03/22 09/27/22 08:00 polyethylene glycol 3350 17 8.5 gm PO DAILY #0 grams 09/19/21 12/03/22 11/13/22 gram/dose oral powder (Miralax) midodrine 5 mg tablet 2.5 mg PO TID 01/22/22 12/03/22 11/13/22 carbidopa 25 mg-levodopa 100 mg 2 tab PO QID 09/27/22 12/03/22 11/13/22 18:00 tablet hydrocortisone 2.5 % topical cream 1 applic EXT TID PRN Hemorrhoids 09/27/22 12/03/22 Unknown with perineal applicator (Proctosol ) ketoconazole 2 % topical cream 1 applic topical BID PRN NEEDED 09/27/22 12/03/22 Unknown venlafaxine 37.5 mg 37.5 mg PO DAILY 09/27/22 12/03/22 11/13/22 capsule,extended release 24 hr apixaban 5 mg tablet (Eliquis) 5 mg PO BID #60 tabs 11/28/22 12/03/22 Unknown furosemide 20 mg tablet (Lasix) 20 mg PO DAILY PRN edema/excess 11/28/22 12/03/22 Unknown water build-up #14 tabs potassium chloride 10 mEq 10 meq PO DAILY PRN take only when 11/28/22 12/03/22 Unknown tablet,extended release you use furosemide diuretic #14 tabs digoxin 250 mcg (0.25 mg) tablet 250 mcg PO DAILY #30 tabs 12/03/22 12/03/22 Unknown Active Medications Generic Name Dose Route Start Last Admin Trade Name Freq PRN Reason Stop Dose Admin Acetaminophen 1,000 mg 12/10/22 21:00 12/11/22 19:47 Acetaminophen 500 Mg Tab PO 01/09/23 20:59 1,000 mg HS GILLES Administration Apixaban 5 mg 12/10/22 12:26 12/13/22 10:38 Apixaban 5 Mg Tablet PO 01/09/23 12:25 Not Given BID GILLES Atorvastatin Calcium 20 mg 12/10/22 21:00 12/12/22 20:20 Atorvastatin 20 Mg Tab PO 01/09/23 20:59 20 mg HS GILLES Administration Carbidopa/Levodopa 1 tab 12/10/22 13:00 12/13/22 09:48 Carbidopa/Levodopa 25-250 1 Ea Tab PO 01/09/23 12:59 1 tab QID GILLES Administration Clonazepam 2 mg 12/10/22 21:00 12/12/22 20:20 Clonazepam 1 Mg Tab PO 01/09/23 20:59 2 mg HS GILLES Administration Digoxin 0.25 mg 12/10/22 12:26 12/13/22 09:48 Digoxin 0.25 Mg Tab PO 01/09/23 12:25 0.25 mg DAILY GILLES Administration Donepezil HCl 10 mg 12/10/22 21:00 12/12/22 20:20 Donepezil Hcl 10 Mg Tab PO 01/09/23 20:59 10 mg HS GILLES Administration Fludrocortisone Acetate 0.2 mg 12/10/22 12:26 12/13/22 09:48 Fludrocortisone Acetate 0.1 Mg Tab PO 01/09/23 12:25 0.2 mg QAM GILLES Administration Cefepime HCl 2,000 mg/ Syringe 20 mls @ 5 mls/min 12/10/22 13:00 12/13/22 04:41 IV 12/17/22 12:59 5 mls/min Q8H GILLES Administration Protocol Levothyroxine Sodium 50 mcg 12/10/22 13:00 12/13/22 04:42 Levothyroxine Sodium 50 Mcg Tablet PO 01/09/23 12:59 50 mcg DAILYBB GILLES Administration Melatonin 9 mg 12/10/22 21:00 12/12/22 20:20 Melatonin 3 Mg Tab PO 01/09/23 20:59 9 mg HS GILLES Administration Midodrine 2.5 mg 12/10/22 12:26 12/13/22 09:49 Midodrine Hcl 2.5 Mg Tab PO 01/09/23 12:25 2.5 mg 0800,1200,1700 GILLES Administration Multivitamins 1 tab 12/10/22 21:00 12/12/22 20:20 Multivitamin Tab PO 01/09/23 20:59 1 tab PM GILLES Administration Polyethylene Glycol 8.5 gm 12/10/22 12:26 12/13/22 10:38 Polyethylene (Miralax) 17 Gm Pack PO 01/09/23 12:25 Not Given DAILY GILLES Sennosides 17.2 mg 12/10/22 12:26 12/12/22 14:05 Senna 8.6 Mg Tab PO 01/09/23 12:25 17.2 mg BID PRN Administration Constipation Venlafaxine HCl 37.5 mg 12/10/22 12:26 12/13/22 09:47 Venlafaxine Hcl Xr 37.5 Mg Capxr PO 01/09/23 12:25 37.5 mg DAILY GILLES Administration Vitamin D 2,000 units 12/10/22 14:00 12/13/22 09:48 Cholecalciferol 1,000 Units 25 Mcg Tab PO 01/09/23 13:59 2,000 units TID GILLES Administration NPO Date Last Intake of Fluids: 12/12/22 Time Last Intake of Fluids: 21:00 Last Intake of Fluids Comment: 0800 sip water for med Date Last Intake of Solids: 12/12/22 Time Last Intake of Solids: 22:00 Past Medical History Medical History Adjustment disorder Aspiration pneumonia 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 Chronic constipation Closed head injury Complicated UTI (urinary tract infection) Demand ischemia Depression Elevated troponin Hypokalemia Hypotension Hypothyroidism Left ureteral calculus Lumbar pain Lumbar post-laminectomy syndrome Prior left L3-4 hemilaminectomy Memory loss Metabolic encephalopathy Neurogenic bladder PAF (paroxysmal atrial fibrillation) Parkinson's disease Parkinson's disease with neurogenic orthostatic hypotension Pericardial effusion Pneumonia Prostatic hypertrophy (03/29/13) Pulmonary edema Sacral insufficiency fracture Sepsis Spinal stenosis of lumbar region Syncope Uncontrolled REM sleep behavior disorder Urge incontinence of urine Exercise / Class Metabolic Activity II 4-5 Yardwork/Stairs/Walk up hill Past Family History Family History Unknown Alzheimer disease Sister Diabetes Cancer Other Family history non-contributory Past Surgical History Surgical History History of back surgery History of tonsillectomy 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) Past Anesthesia History No Hx of Anesthesia Complications and No Family Hx of Anesthesia Complications History of PONV No Hx of PONV and No Hx of Motion Sickness Social History Smoking Status: Never smoker Hx Alcohol Use: No Hx Substance Use: No substance use type: does not use Review of Systems denies fever/cough/ colds/ chest pain/ SOB/ ARELI denies ARELI Physical Exam Vital Signs Last Vital Signs Temp 36.6 C 12/13/22 12:55 Pulse 69 12/13/22 12:55 Resp 22 12/13/22 12:55 BP 149/82 H 12/13/22 12:55 Pulse Ox 98 12/13/22 12:55 O2 Del Method Room Air 12/13/22 12:55 O2 Flow Rate 2 12/13/22 11:17 ENMT Mouth: no TMJ abnormality and no dentition abnormality Thyromental Distance: > or= 3.5 Finger Breadths Mallampati Class: II Neck neck extension not limited Respiratory normal respiratory effort; no respiratory distress Auscultation: lungs clear to auscultation bilaterally Cardiovascular Rate/Rhythm: regular rate and regular rhythm Neurologic moves all extremities Psychiatric Orientation: alert and oriented x 3 Testing Laboratory Results 12/13/22 05:40 12/13/22 05:40 Urine Color Dark Yellow 12/10/22 06:35 Urine Appearance Turbid (Clear) A 12/10/22 06:35 Urine pH 5.5 (4.5-7.5) 12/10/22 06:35 Ur Specific [place] 1.034 (1.000-1.030) H 12/10/22 06:35 Urine Protein 1+ (Negative) H 12/10/22 06:35 Urine Glucose (UA) Negative (Negative) 12/10/22 06:35 Urine Ketones Trace (Negative) H 12/10/22 06:35 Urine Nitrite Negative (Negative) 12/10/22 06:35 Ur Leukocyte Esterase Trace (Negative) H 12/10/22 06:35 Urine WBC (Auto) 1-5 /hpf (0-5) 12/10/22 06:35 Urine RBC (Auto) >30 /hpf (0-4) H 12/10/22 06:35 U Hyaline Cast (Auto) 1-5 /lpf (0-5) 12/10/22 06:35 U Epithel Cells (Auto) 10-20 /lpf (0-5) H 12/10/22 06:35 Urine Bacteria (Auto) Negative (Negative) 12/10/22 06:35 12/10/22 05:28 Aerobic Blood Culture - Preliminary Blood No growth in Aerobic bottle after 48 hours. Anaerobic Blood Culture - Preliminary No growth in Anaerobic bottle after 48 hours. 12/10/22 05:04 Aerobic Blood Culture - Preliminary Blood No growth in Aerobic bottle after 48 hours. Anaerobic Blood Culture - Preliminary No growth in Anaerobic bottle after 48 hours.
[2022-12-13] MEDS ORDERED: fentaNYL citrate PF 100 MCG/2 ML VIAL IV PRN (13:10)
[2022-12-13] MEDS ORDERED: ePHEDrine sulfate 50 MG/ML AMP IV PRN (13:10)
[2022-12-13] MEDS ORDERED: ATROPINE SULFATE 0.1 MG/ML 10ML SYR IV PRN (13:10)
[2022-12-13] MEDS ORDERED: LIDOCAINE 2% MPF LOCAL 5 ML VIAL ONE (13:17)
[2022-12-13] MEDS ORDERED: PROPOFOL IV EMULSION 10 MG/ML 20 ML VIAL IV ONE (13:17)
[2022-12-13] MEDS ORDERED: fentaNYL citrate PF 100 MCG/2 ML VIAL ONE (13:18)
[2022-12-13] MEDS ORDERED: ONDANSETRON INJ 2 MG/ML 2 ML VIAL ONE (13:40)
[2022-12-13] MEDS ORDERED: diphenhydrAMINE 50 MG/ML VIAL ONE (14:12)
[2022-12-13] MEDS ORDERED: DIATRIZOATE MEGLUMINE 30% 100ML VIAL INSTIL ONE (14:27)
--- NOTE | 2022-12-13 14:29 | Operative Report ---
PG Post Operative Report Pre & Post Diagnosis Operation Date: 12/13/22 13:30 Pre-Op Diagnosis: Left ureteral calculus Post-Op Diagnosis: Left ureteral calculus I identified the patient and participated in the time-out.: Yes Procedure Operation Date: 12/13/22 13:30 Actual Procedures p Cystoscopy, Left Retrograde Pyelogram, Left Stent Placement - Micheal Mistry MD Surgeon Micheal Mistry MD Infusion Nurse None Estimated Blood Loss 0 Findings Consistent with Post-Op Diagnosis Specimens None Drains 6 [place] by 26 cm double-J ureteral stent to the left ureter, condom catheter over the penis Anesthesia Type MAC Complications none Disposition Accompanied Patient To Recovery: Yes Disposition: Recovery Room Indications This is an 82-year-old male followed by urology for nephrolithiasis. He was recently found to have a left ureteral stone. Urine culture was concerning for infection and he is being brought to the OR today for left ureteral stent placement to decompress left kidney. Description of Procedure The patient was identified in the holding area and informed consent was confirmed. He was marked on the left side, then was taken to the operating room where anesthesia was initiated. He was placed in the dorsal lithotomy position with all pressure points appropriately padded. He was prepped and draped in the usual sterile fashion and a preoperative timeout was performed. A well-lubricated cystoscope was inserted per urethra and panendoscopy was performed. The pendulous urethra was normal with no strictures or mucosal abnormalities. The prostate was of normal size. His bladder appeared grossly normal with no tumors or stones appreciated. Ureteral orifices were in orthotopic position bilaterally. There was some bulging/billowing of the distal left ureter suggesting a tight left ureteral orifice. The stone was not visible. A 5 Nigerien open-ended catheter was inserted and used to intubate the left ureteral orifice. A retrograde pyelogram was performed using Cystografin. The ureter was somewhat dilated and there was hydronephrosis of the left kidney. There was no extravasation appreciated. A 0.038 inch zip wire was advanced up to the kidney under fluoroscopic guidance. Over the wire, a 6 Nigerien x 26 cm double-J ureteral stent was advanced. When the wire was removed, there was a good curl in the kidney under fluoroscopic guidance. A curl was visualized in the bladder with the cystoscope. At this point the bladder was drained and all instrumentation was removed. A condom catheter was replaced on the penis to address his urinary incontinence. The patient was then awakened from anesthesia and was brought to the PACU in stable condition. I attest to the content of the Intraoperative Record and any orders documented therein. Any exceptions are noted below.
--- NOTE | 2022-12-13 14:33 | Fluoroscopy Report ---
FL retrograde includes kub CLINICAL HISTORY: LT TECHNIQUE: 1 views were obtained with the C-arm in the OR with the above procedure. Total fluoroscopy time was 6.5 seconds. Radiation dose was 1.02 mGy. Comparison: Comparison is made to CT abdomen pelvis 12/02/2022 FINDINGS/IMPRESSION: Intraoperative images were obtained of left lithotripsy and stent placement. Please correlate with intraoperative fluoroscopy and operative report. ACT 112: Negative or not required by law. Electronically signed by: Philip Hinton M.D. 12/13/2022 2:32 PM
--- NOTE | 2022-12-13 14:49 | Anesthesiology Progress Note ---
Date of Service December 13, 2022 Anesthesia Post Procedure Vital Signs Vital Signs: Temp Pulse Pulse Pulse Resp BP Pulse Ox 12/13/22 14:45 74 17 130/75 98 12/13/22 14:36 36.3 C L 86 16 121/75 96 12/13/22 09:00 67 12/13/22 09:00 12/13/22 12:55 36.6 C 69 22 149/82 H 98 12/13/22 11:17 36.4 C L 79 18 121/81 96 12/13/22 07:32 36.4 C L 71 19 136/75 94 12/13/22 04:00 12/13/22 03:22 36.6 C 70 20 124/65 96 12/12/22 23:53 90 12/12/22 20:20 12/12/22 22:53 36.5 C 95 H 20 139/71 92 12/12/22 19:13 36.9 C 92 H 20 150/81 H 92 12/12/22 17:25 36.7 C 68 18 172/84 H 94 12/12/22 14:55 68 O2 Del Method O2 Del Method O2 Flow Rate 12/13/22 14:45 Oxymask 8 12/13/22 14:36 Oxymask 8 12/13/22 09:00 12/13/22 09:00 Nasal Cannula 2 12/13/22 12:55 Room Air 12/13/22 11:17 Nasal Cannula 2 12/13/22 07:32 Room Air 12/13/22 04:00 Nasal Cannula 12/13/22 03:22 Nasal Cannula 2 12/12/22 23:53 12/12/22 20:20 Room Air 12/12/22 22:53 Nasal Cannula 2 12/12/22 19:13 Room Air 12/12/22 17:25 Room Air 12/12/22 14:55 Transfer of Care Handoff Completed per policy Notes Mental Status: alert / awake / arousable and participated in evaluation Patient Amnestic to Procedure: Yes Nausea / Vomiting: adequately controlled Pain: adequately controlled Airway Patency, RR, SpO2: stable & adequate BP & HR: stable & adequate Hydration State: stable & adequate Anesthetic Complications: no major complications apparent and Pt Satisfied with anesthetic care
[2022-12-13] MEDS: clonazePAM 1 MG TAB PO SCH (21:22)
[2022-12-13] MEDS: MELATONIN 3 MG TAB PO SCH (21:22)
[2022-12-13] MEDS: ATORVASTATIN 20 MG TAB PO SCH (21:23)
[2022-12-13] MEDS: ACETAMINOPHEN 500 MG TAB PO SCH (21:23)
[2022-12-13] MEDS: DONEPEZIL HCL 10 MG TAB PO SCH (21:23)
[2022-12-13] MEDS: MULTIVITAMIN TAB PO SCH (21:23)
[2022-12-14] MEDS: CEFEPIME 2,000 MG in SYRINGE 0 ML IV SCH ×2 (04:45→17:21)
[2022-12-14] MEDS: LEVOTHYROXINE SODIUM 50 MCG TABLET PO SCH (04:46)
[2022-12-14 06:50] LABS: Basophils # (auto) 0.03 K/uL (0-0.2); Basophils % (auto) 0.5 %; Eosinophils # (auto) 0.21 K/uL (0-0.50); Eosinophils % (auto) 3.8 %; Hematocrit (blood only) 34.9 % (42.0-52.0); Hemoglobin 11.5 g/dl (14.0-18.0); Immature Granulocytes # (auto) 0.02 K/uL (0.01-0.20); Immature Granulocytes % (auto) 0.4 %; Lymphocytes # (auto) 1.05 K/uL (1.2-3.4); Mean Corpuscular Hemoglobin 31.1 pg (25.0-34.0); Mean Corpuscular Volume 94.3 fL (80.0-100.0); Mean Platelet Volume 10.7 fL (9.4-12.4); Monocytes # (auto) 0.62 K/uL (0.11-0.59); Monocytes % (auto) 11.2 %; Neutrophils # (auto) 3.61 K/uL (1.40-6.50); Neutrophils % (auto) 65.1 %; Platelet Count 190 K/uL (130-400); RDW Coefficient of Variation 13.2 % (11.5-14.5); RDW Standard Deviation 45.4 fL (36.4-46.3); White Blood Count 5.54 K/ul (4.8-10.8)
[2022-12-14 06:59] LABS: BUN Creatinine Ratio 28.9 (10-20); Calcium 9.1 mg/dl (8.6-10.3); Creatinine Clr Calc Pharmacy 71.9 ml/min; Est GFR (African American) 93.2 ml/min; Est GFR (Non-African American) 80.4 ml/min; Potassium 3.3 mmol/L (3.5-5.1)
--- NOTE | 2022-12-14 07:47 | Urology Progress Note ---
Date of Service December 14, 2022 Assessment & Plan (1) Left ureteral calculus: Plan: Recovering appropriately s/p left ureteral stent placement on 12/13/2022. Stone was not treated at that time, he will require stone treatment if he does not pass it spontaneously. For now would treat UTI with 10 to 14 days of culture appropriate antibiotics. Once this is set up, I think he is reasonable for discharge. Urology will coordinate outpatient follow-up for further stone management. We will sign off for now, please call with any questions or concerns. Admission and Anticipated Discharge Date Admission Date: December 10, 2022 Subjective 82-year-old male, s/p left ureteral stent placement on 12/13/2022. Feeling well overnight, no significant pain, no acute events Tolerating the stent without much discomfort Urine culture from 12/09/2022 with Pseudomonas. Blood cultures negative at 48 hours Review of Systems Review of Systems: 12 point review of systems negative except for otherwise indicated. Physical Exam Physical Exam: Well-appearing, NAD Respiratory: Breathing comfortably on room air, no audible wheezing Gastrointestinal (Abdomen): Soft, nontender Results & Data Vital Signs (Past 12 Hours) Vital Signs Temp Pulse Pulse Resp BP Pulse Ox O2 Del Method 12/14/22 03:28 36.6 C 72 18 118/64 95 Nasal Cannula 12/14/22 00:31 75 12/14/22 00:06 36.3 C L 71 18 117/71 95 Nasal Cannula 12/13/22 21:39 Nasal Cannula O2 Flow Rate 12/14/22 03:28 2 12/14/22 00:31 12/14/22 00:06 2 12/13/22 21:39 2 PG Care Time/CCT Total # of Minutes Spent Total Time Spent with Patient: Total time spent is greater than 50% in coordination of care (as documented) at patient's floor/unit and/or counseling patient: Coding Level of Care Code 95784 SUB INP/OBS CARE 25MIN Diagnoses Left ureteral calculus N20.1
--- NOTE | 2022-12-14 08:08 | Hospitalist Progress Note ---
Date of Service December 14, 2022 Assessment & Plan (1) Acute on chronic heart failure with preserved ejection fraction (HFpEF): Plan: -Presented with fevers at home to 101.3F. -Recent admission for Sepsis 2nd to urinary source/possible aspiration pneumonia and completed course IV abx 7 days inpatient and sent on Cefdinir and short course of diuretics for pulm edema -CXR w/ mild interstitial edema, bibasilar densities and b/l effusions, now on room air without shortness of breath -Fluid overload likely secondary to recent rapid atrial fibrillation, continue increased digoxin 250 mcg daily, closely monitor fluid status -Received IV diuresis during admission, no further diuresis at this point -Strict I's and O's, daily weights, low-sodium diet (2) Nephrolithiasis: Plan: -Recent admission for Sepsis 2nd urinary source/possible aspiration pneumonia -Temps at home 101.1F -With 4 mm left ureterolithiasis in the distal ureter here, no hydronephrosis, no MAURA -Urinalysis appears contaminated but urine culture is growing >100k CFU Pseudomonas aeruginosa with intermediate sensitivity to fluoroquinolones, continue cefepime at this time with intent to continue on discharge (Case Management assisting in arranging this for home) -Blood cultures collected 12/10 - no growth to date -Appreciate urology consultation-initially trying to avoid cystoscopy and ureteroscopy if possible given comorbidities, however 12/13 had cystoscopy and stent placement after discussion with patient/ by Urology team -Did have some post-procedural asymptomatic hypotension, improved since procedure -Continue Tylenol as needed for pain (3) Pneumonia: Plan: -Unlikely as most suspicious of fluid overload as reason for need for supplemental O2 at first, however continue cefepime for now for UTI regardless, start date 12/10 -Blood cultures with no growth to date -Pulmonary toilet -Supplemental O2 as needed (4) PAF (paroxysmal atrial fibrillation): Plan: -Normal HR for the last several days -Digoxin was recently increased to 0.250 daily, digoxin level here is acceptable at 1.2, continue this dose -Continue telemetry monitoring -Continue Eliquis -Appreciate cardiology consultation (5) Parkinson's disease: Plan: -Continue home Sinemet-- Parkinson w/ neurogenic orthostatic hypotension and on fludrocortisone, midodrine -Fall precautions/aspiration precautions -He is nonambulatory at baseline (6) Dementia: Plan: -W/ Parkinsons -Frequent orientation/maintain sleep cycle (7) Hyperbilirubinemia: Plan: -Bilirubin elevated at 1.6 but has been elevated multiple times in the past-back to normal on repeat checks, no GI complaints (8) Anemia: Plan: Baseline Hgb is around 11-13, normocytic, 11.5 on 12/13 and 12/14 post-procedure He has had a colonoscopy within the last 5 years and was told he did not need further screening colonoscopies. Has never had an EGD-recommend this as an outpatient No bloody stools noted B12, folate, TSH are normal Iron studies show iron deficiency, received Venofer 300mg IV x1 while admitted Plan DVT prophylaxis-Eliquis Disposition-continued stay in PCU Improving, possible discharge in the next few days after recovery from ureteral stent placement when IV Abx outpatient is arranged Care discussed with Admission and Anticipated Discharge Date Admission Date: December 10, 2022 Subjective Patient without any acute events overnight, is tired today due to difficulty with sleeping at times from back pain at stent site. Sleepy during my interview, but easily arousable to voice and answers my questions appropriately. Denies any complaints of chest pain, shortness of breath, abdominal pain, nausea. No fevers noted overnight. Review of Systems Review of Systems: All systems reviewed & are unremarkable except as noted in Subjective Physical Exam Constitutional: WD/WN, vitals as above Respiratory: normal respiratory effort, lungs clear to auscultation Cardiovascular: RRR, no murmur, no edema Gastrointestinal (Abdomen): normal bowel sounds, soft, nontender, no hepatosplenomegaly Skin: no rashes, warm and dry Psychiatric: A+Ox3, euthymic affect Results & Data Results & Data Vital Signs (Past 12 Hours) Vital Signs Temp Pulse Pulse Resp BP Pulse Ox O2 Del Method 12/14/22 07:56 36.5 C 59 L 17 127/75 90 Room Air 12/14/22 03:28 36.6 C 72 18 118/64 95 Nasal Cannula 12/14/22 00:31 75 12/14/22 00:06 36.3 C L 71 18 117/71 95 Nasal Cannula 12/13/22 21:39 Nasal Cannula O2 Flow Rate 12/14/22 07:56 12/14/22 03:28 2 12/14/22 00:31 12/14/22 00:06 2 12/13/22 21:39 2 PG Care Time/CCT Total # of Minutes Spent Total Time Spent with Patient: Total time spent is greater than 50% in coordination of care (as documented) at patient's floor/unit and/or counseling patient: Coding Level of Care Code 78402 SUB INP/OBS CARE 3/50MIN Diagnoses Acute on chronic heart failure with preserved ejection fraction (HFpEF) I50.33 Nephrolithiasis N20.0 Pneumonia J18.9 PAF (paroxysmal atrial fibrillation) I48.0 Parkinson's disease G20 Dementia F03.90 Hyperbilirubinemia E80.6 Anemia D64.9
[2022-12-14] MEDS: MIDODRINE HCL 2.5 MG TAB PO SCH ×3 (09:05→17:17)
[2022-12-14] MEDS: DIGOXIN 0.25 MG TAB PO SCH (09:06)
[2022-12-14] MEDS: CARBIDOPA/LEVODOPA 25-250 1 EA TAB PO SCH ×4 (09:06→20:46)
[2022-12-14] MEDS: VENLAFAXINE HCL XR 37.5 MG CAPXR PO SCH (09:07)
[2022-12-14] MEDS: FLUDROCORTISONE ACETATE 0.1 MG TAB PO SCH (09:07)
[2022-12-14] MEDS: CHOLECALCIFEROL 1,000 UNITS 25 MCG TAB PO SCH ×3 (09:07→20:46)
[2022-12-14] MEDS: POLYETHYLENE (MIRALAX) 17 GM PACK PO SCH (09:18)
[2022-12-14] MEDS: APIXABAN 5 MG TABLET PO SCH ×2 (11:34→20:46)
[2022-12-14] MEDS: clonazePAM 1 MG TAB PO SCH (20:46)
[2022-12-14] MEDS: DONEPEZIL HCL 10 MG TAB PO SCH (20:46)
[2022-12-14] MEDS: ACETAMINOPHEN 500 MG TAB PO SCH (20:46)
[2022-12-14] MEDS: ATORVASTATIN 20 MG TAB PO SCH (20:46)
[2022-12-14] MEDS: MELATONIN 3 MG TAB PO SCH (20:46)
[2022-12-14] MEDS: MULTIVITAMIN TAB PO SCH (20:46)
[2022-12-14] MEDS ORDERED: HYDROmorphone INJ 0.5 MG/0.5 ML SYR IV STA (23:14)
[2022-12-14] MEDS: POTASSIUM CHLORIDE / WTR 10 MEQ/100 ML PLCT IV SCH (23:33)
[2022-12-15] MEDS: POTASSIUM CHLORIDE / WTR 10 MEQ/100 ML PLCT IV SCH (00:24)
[2022-12-15] MEDS: CEFEPIME 2,000 MG in SYRINGE 0 ML IV SCH ×2 (05:06→16:23)
[2022-12-15] MEDS: LEVOTHYROXINE SODIUM 50 MCG TABLET PO SCH (05:06)
--- NOTE | 2022-12-15 07:17 | Hospitalist Progress Note ---
Date of Service December 15, 2022 Assessment & Plan (1) Acute on chronic heart failure with preserved ejection fraction (HFpEF): Plan: -Presented with fevers at home to 101.3F. -Recent admission for Sepsis 2nd to urinary source/possible aspiration pneumonia and completed course IV abx 7 days inpatient and sent on Cefdinir and short course of diuretics for pulm edema -CXR w/ mild interstitial edema, bibasilar densities and b/l effusions, now on room air without shortness of breath -Fluid overload likely secondary to recent rapid atrial fibrillation, continue increased digoxin 250 mcg daily, closely monitor fluid status -Received IV diuresis prn during admission, no further diuresis at this point and saturating well on room air -Strict I's and O's, daily weights, low-sodium diet (2) Nephrolithiasis: Plan: -Recent admission for Sepsis 2nd urinary source/possible aspiration pneumonia -Temps at home 101.1F -With 4 mm left ureterolithiasis in the distal ureter here, no hydronephrosis, no MAURA -Urinalysis appears contaminated but urine culture is growing >100k CFU Pseudomonas aeruginosa with intermediate sensitivity to fluoroquinolones, continue cefepime 2g q12h at this time with intent to continue on discharge (Case Management assisting in arranging this for home) -Blood cultures collected 12/10 - no growth to date -Appreciate urology consultation-initially trying to avoid cystoscopy and ureteroscopy if possible given comorbidities, however 12/13 had cystoscopy and stent placement after discussion with patient/ by Urology team -Did have some post-procedural asymptomatic hypotension, resolved since procedure -Continue Tylenol as needed for pain -F/u next week with Urology to discuss next steps for stone removal (3) Pneumonia: Plan: -Unlikely as most suspicious of fluid overload as reason for need for supplemental O2 at first, however continue cefepime for now for UTI regardless, start date 12/10 -Blood cultures with no growth to date -Pulmonary toilet -Supplemental O2 as needed (4) PAF (paroxysmal atrial fibrillation): Plan: -Normal HR for the last several days, telemetry 12/15 is AFib HR 60-70s -Digoxin was recently increased to 0.250 daily, digoxin level here is acceptable at 1.2, continue this dose -Continue Eliquis -Appreciate cardiology consultation this admission (5) Parkinson's disease: Plan: -Continue home Sinemet-- Parkinson w/ neurogenic orthostatic hypotension and on fludrocortisone, midodrine -Fall precautions/aspiration precautions -He is nonambulatory at baseline (6) Dementia: Plan: -W/ Parkinsons -Frequent orientation/maintain sleep cycle (7) Hyperbilirubinemia: Plan: -Bilirubin elevated at 1.6 but has been elevated multiple times in the past-back to normal on repeat checks, no GI complaints (8) Anemia: Plan: Baseline Hgb is around 11-13, normocytic, Hgb stable in 11's since procedure He has had a colonoscopy within the last 5 years and was told he did not need further screening colonoscopies. Has never had an EGD-recommend this as an outpatient No bloody stools noted, is having hematuria, discussed with Urology 4/2 that this is expected at least to some extent until stent is removed Iron studies show iron deficiency, received Venofer 300mg IV x1 while admitted B12, folate, TSH are normal (9) Hypokalemia: Plan: HypoK resolved, was in the setting of intermittent IV diuresis for fluid overload, see above KCl supplement PO given Plan DVT prophylaxis-Eliquis Disposition-continued stay in PCU Improving, discharge when IV Abx outpatient is arranged, hopefully tomorrow; midline ordered for Abx admin on discharge Care discussed with Admission and Anticipated Discharge Date Admission Date: December 10, 2022 Subjective Patient without any acute events overnight, does feel more awake and alert today, little bit of confusion but this is his baseline. Still having rather dark red output from his catheter, no complaints of dizziness or lightheadedness, no chest pain, shortness of breath, abdominal pain. Has not had a bowel movement in 2 days. Review of Systems Review of Systems: All systems reviewed & are unremarkable except as noted in Subjective Physical Exam Constitutional: WD/WN, vitals as above Respiratory: normal respiratory effort, lungs clear to auscultation Cardiovascular: RRR, no murmur, no edema Gastrointestinal (Abdomen): normal bowel sounds, soft, nontender, no hepatosplenomegaly Skin: no rashes, warm and dry Psychiatric: A+Ox3, euthymic affect Genitourinary: corona draining dark red/brown urine, no clots Results & Data Results & Data Vital Signs (Past 12 Hours) Vital Signs Temp Pulse Pulse Resp BP Pulse Ox O2 Del Method 04/02/23 02:42 36.6 C 86 20 144/84 H 90 Room Air 12/15/22 00:29 86 12/14/22 23:00 36.5 C 88 20 158/74 H 90 Room Air 12/14/22 21:07 Room Air PG Care Time/CCT Total # of Minutes Spent Total Time Spent with Patient: Total time spent is greater than 50% in coordination of care (as documented) at patient's floor/unit and/or counseling patient: Coding Level of Care Code 31652 SUB INP/OBS CARE 3/50MIN Diagnoses Acute on chronic heart failure with preserved ejection fraction (HFpEF) I50.33 Nephrolithiasis N20.0 Pneumonia J18.9 PAF (paroxysmal atrial fibrillation) I48.0 Parkinson's disease G20 Dementia F03.90 Hyperbilirubinemia E80.6 Anemia D64.9 Hypokalemia E87.6
[2022-12-15] MEDS: POTASSIUM CHLORIDE CRTAB 20 MEQ TABCR PO SCH (09:18)
[2022-12-15] MEDS: CARBIDOPA/LEVODOPA 25-250 1 EA TAB PO SCH ×4 (09:18→20:38)
[2022-12-15] MEDS: CHOLECALCIFEROL 1,000 UNITS 25 MCG TAB PO SCH ×3 (09:19→20:38)
[2022-12-15] MEDS: APIXABAN 5 MG TABLET PO SCH ×2 (09:19→20:38)
[2022-12-15] MEDS: DIGOXIN 0.25 MG TAB PO SCH (09:20)
[2022-12-15] MEDS: VENLAFAXINE HCL XR 37.5 MG CAPXR PO SCH (09:20)
[2022-12-15] MEDS: MIDODRINE HCL 2.5 MG TAB PO SCH ×3 (09:20→16:23)
[2022-12-15] MEDS: FLUDROCORTISONE ACETATE 0.1 MG TAB PO SCH (09:22)
[2022-12-15] MEDS: POLYETHYLENE (MIRALAX) 17 GM PACK PO SCH (09:29)
[2022-12-15 09:48] LABS: BUN Creatinine Ratio 35.6 (10-20); Calcium 9.3 mg/dl (8.6-10.3); Creatinine Clr Calc Pharmacy 74.3 ml/min; Est GFR (African American) 94.5 ml/min; Est GFR (Non-African American) 81.5 ml/min; Potassium 3.5 mmol/L (3.5-5.1)
[2022-12-15 12:55] LABS: Hematocrit (blood only) 35.9 % (42.0-52.0); Hemoglobin 11.9 g/dl (14.0-18.0); Mean Corpuscular Hgb Conc 33.1 g/dL (32.0-36.0); Mean Corpuscular Volume 93.5 fL (80.0-100.0); Mean Platelet Volume 10.6 fL (9.4-12.4); Platelet Count 187 K/uL (130-400); RDW Coefficient of Variation 13.1 % (11.5-14.5); RDW Standard Deviation 44.6 fL (36.4-46.3); Red Blood Count 3.84 M/uL (4.70-6.10); White Blood Count 6.72 K/ul (4.8-10.8)
[2022-12-15] MEDS ORDERED: POLYETHYLENE (MIRALAX) 17 GM PACK PO PRN (16:47)
--- NOTE | 2022-12-15 20:02 | XRay Report ---
XR chest 1V portable CLINICAL HISTORY: pulm edema TECHNIQUE: Single frontal radiograph of the chest was obtained. Comparison: Comparison is made to chest radiograph 12/14/2019 FINDINGS: Exam is limited by patient rotation. No lines and tubes are seen. Cardiomegaly is noted. The aortic a rch is calcified. Bilateral lower lung predominant airspace opacities are seen. Small bilateral pleur al effusions are seen. IMPRESSION: Bilateral lower lung predominant airspace opacities which may represent atelectasis, pneumonia, and/o r aspiration. These are improved from prior exam. Pulmonary edema appears resolved. Small bilateral p leural effusions are seen. ACT 112: Negative or not required by law. Electronically signed by: Philip Hinton M.D. 12/15/2022 8:00 PM
[2022-12-15] MEDS: ACETAMINOPHEN 500 MG TAB PO SCH (20:10)
[2022-12-15] MEDS: MULTIVITAMIN TAB PO SCH (20:38)
[2022-12-15] MEDS: ATORVASTATIN 20 MG TAB PO SCH (20:38)
[2022-12-15] MEDS: clonazePAM 1 MG TAB PO SCH (20:38)
[2022-12-15] MEDS: MELATONIN 3 MG TAB PO SCH (20:38)
[2022-12-15] MEDS: DONEPEZIL HCL 10 MG TAB PO SCH (20:38)
[2022-12-16] MEDS: CEFEPIME 2,000 MG in SYRINGE 0 ML IV SCH ×2 (04:20→16:44)
[2022-12-16] MEDS: LEVOTHYROXINE SODIUM 50 MCG TABLET PO SCH (05:30)
[2022-12-16 07:41] LABS: Hematocrit (blood only) 33.5 % (42.0-52.0); Hemoglobin 11.2 g/dl (14.0-18.0); Mean Corpuscular Hemoglobin 30.9 pg (25.0-34.0); Mean Corpuscular Hgb Conc 33.4 g/dL (32.0-36.0); Mean Corpuscular Volume 92.5 fL (80.0-100.0); Mean Platelet Volume 10.6 fL (9.4-12.4); Platelet Count 179 K/uL (130-400); RDW Coefficient of Variation 13.1 % (11.5-14.5); RDW Standard Deviation 44.5 fL (36.4-46.3); Red Blood Count 3.62 M/uL (4.70-6.10); White Blood Count 4.36 K/ul (4.8-10.8)
[2022-12-16] MEDS: FLUDROCORTISONE ACETATE 0.1 MG TAB PO SCH (09:47)
[2022-12-16] MEDS: POTASSIUM CHLORIDE CRTAB 20 MEQ TABCR PO SCH (09:47)
[2022-12-16] MEDS: CARBIDOPA/LEVODOPA 25-250 1 EA TAB PO SCH ×4 (09:48→20:24)
[2022-12-16] MEDS: APIXABAN 5 MG TABLET PO SCH ×2 (09:48→20:24)
[2022-12-16] MEDS: CHOLECALCIFEROL 1,000 UNITS 25 MCG TAB PO SCH ×3 (09:48→20:23)
[2022-12-16] MEDS: DIGOXIN 0.25 MG TAB PO SCH (09:49)
[2022-12-16] MEDS: MIDODRINE HCL 2.5 MG TAB PO SCH ×3 (09:49→16:44)
[2022-12-16] MEDS: POLYETHYLENE (MIRALAX) 17 GM PACK PO SCH (09:50)
[2022-12-16] MEDS: VENLAFAXINE HCL XR 37.5 MG CAPXR PO SCH (09:50)
[2022-12-16 09:59] LABS: Calcium 9.2 mg/dl (8.6-10.3); Potassium 3.8 mmol/L (3.5-5.1)
[2022-12-16 10:05] LABS: BUN Creatinine Ratio 30.8 (10-20); Creatinine Clr Calc Pharmacy 82.9 ml/min; Est GFR (African American) 98.8 ml/min; Est GFR (Non-African American) 85.3 ml/min
--- NOTE | 2022-12-16 15:44 | Hospitalist Progress Note ---
Date of Service December 16, 2022 Assessment & Plan (1) Acute on chronic heart failure with preserved ejection fraction (HFpEF): Plan: -Presented with some tachycardia and hypoxia briefly requiring supplemental O2, recent admission with some fluid overload in setting of AFib RVR -CXR w/ mild interstitial edema, bibasilar densities and b/l effusions, now on room air without shortness of breath -Fluid overload likely secondary to recent rapid atrial fibrillation, continue increased digoxin 250 mcg daily, closely monitor fluid status -Received IV diuresis prn during admission, no further diuresis at this point and saturating well on room air, pulm edema resolved per CXR 12/15 -Strict I's and O's, daily weights, low-sodium diet (2) Nephrolithiasis: Plan: -Recent admission for Sepsis 2nd urinary source/possible aspiration pneumonia -Temps at home 101.1F -With 4 mm left ureterolithiasis in the distal ureter here, no hydronephrosis, no MAURA -Urine culture is growing >100k CFU Pseudomonas aeruginosa with intermediate sensitivity to fluoroquinolones, continue cefepime 2g q12h at this time, to continue x7 days on discharge, US guided IV placed 12/16 -Blood cultures collected 12/10 - no growth to date -Appreciate urology consultation- 12/13 had cystoscopy and stent placement after discussion with patient/ by Urology team, will have f/u with Urology regarding stent removal -Did have some post-procedural asymptomatic hypotension, resolved since procedure -Continue Tylenol as needed for pain (3) Pneumonia: Plan: -Unlikely as most suspicious of fluid overload as reason for need for supplemental O2 at first, however continue cefepime for now for UTI regardless, start date 12/10 -Blood cultures with no growth to date -Pulmonary toilet -Has outpatient video swallow study tomorrow AM, will discharge early tomorrow AM so he can make his swallow study -Supplemental O2 as needed (4) PAF (paroxysmal atrial fibrillation): Plan: -Normal HR for the last several days with some pauses on telemetry 12/16 (none longer than 3.5 seconds, asymptomatic) -Digoxin was recently increased to 0.250 daily, digoxin level here is acceptable at 1.2, continue this dose -Continue Eliquis -Appreciate cardiology consultation this admission, discussed pauses with Cardiology 12/16, no indication for intervention or medication change at this time unless pauses symptomatic/>5 seconds (5) Parkinson's disease: Plan: -Continue home Sinemet-- Parkinson'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 Has never had an EGD-recommend this as an outpatient No bloody stools noted, is having hematuria which continues to improve, discussed with Urology 12/15 that this is expected at least to some extent until stent is removed Iron studies show iron deficiency, received Venofer 300mg IV x1 while admitted B12, folate, TSH are normal (9) Hypokalemia: Plan: HypoK resolved, was in the setting of intermittent IV diuresis for fluid overload KCl supplement PO given Plan DVT prophylaxis-Eliquis Disposition-continued stay in PCU Discharge tomorrow with continued IV Abx on discharge and Urology follow up as long as continues to improve clinically Care discussed with Admission and Anticipated Discharge Date Admission Date: December 10, 2022 Subjective No acute events overnight. No complaints other than has not had a BM for a few days. Has difficulty with going to the bathroom in the hospital, usually has a BM about an hour after getting home from the hospital Review of Systems Review of Systems: All systems reviewed & are unremarkable except as noted in Subjective Physical Exam Constitutional: WD/WN, vitals as above Respiratory: normal respiratory effort, lungs clear to auscultation Cardiovascular: RRR, no murmur, no edema Gastrointestinal (Abdomen): normal bowel sounds, soft, nontender, no hepatosplenomegaly Skin: no rashes, warm and dry Psychiatric: A+Ox3, euthymic affect Genitourinary: corona draining light brown urine, no clots Results & Data Results & Data Vital Signs (Past 12 Hours) Vital Signs Temp Pulse Pulse Resp BP Pulse Ox O2 Del Method 12/16/22 15:20 36.5 C 75 18 168/85 H 95 Room Air 12/16/22 14:03 97 H 12/16/22 14:03 65 12/16/22 07:00 57 L 12/16/22 12:00 12/16/22 12:04 36.6 C 56 L 18 160/86 H 99 Room Air 12/16/22 09:49 65 12/16/22 08:12 36.4 C L 72 18 149/73 H 92 Room Air 12/16/22 04:14 36.8 C 64 20 137/60 95 Room Air O2 Del Method 12/16/22 15:20 12/16/22 14:03 12/16/22 14:03 12/16/22 07:00 12/16/22 12:00 Room Air 12/16/22 12:04 12/16/22 09:49 12/16/22 08:12 12/16/22 04:14 PG Care Time/CCT Total # of Minutes Spent Total Time Spent with Patient: Total time spent is greater than 50% in coordination of care (as documented) at patient's floor/unit and/or counseling patient: Coding Level of Care Code 83647 SUB INP/OBS CARE 3/50MIN Diagnoses Acute on chronic heart failure with preserved ejection fraction (HFpEF) I50.33 Nephrolithiasis N20.0 Pneumonia J18.9 PAF (paroxysmal atrial fibrillation) I48.0 Parkinson's disease G20 Dementia F03.90 Hyperbilirubinemia E80.6 Anemia D64.9 Hypokalemia E87.6
[2022-12-16] MEDS: MULTIVITAMIN TAB PO SCH (20:23)
[2022-12-16] MEDS: ATORVASTATIN 20 MG TAB PO SCH (20:23)
[2022-12-16] MEDS: clonazePAM 1 MG TAB PO SCH (20:23)
[2022-12-16] MEDS: MELATONIN 3 MG TAB PO SCH (20:23)
[2022-12-16] MEDS: DONEPEZIL HCL 10 MG TAB PO SCH (20:24)
[2022-12-16] MEDS: ACETAMINOPHEN 500 MG TAB PO SCH (20:24)
[2022-12-17] MEDS: CEFEPIME 2,000 MG in SYRINGE 0 ML IV SCH (04:04)
[2022-12-17] MEDS: LEVOTHYROXINE SODIUM 50 MCG TABLET PO SCH (04:07)
[2022-12-17] MEDS: CHOLECALCIFEROL 1,000 UNITS 25 MCG TAB PO SCH (07:22)
[2022-12-17] MEDS: CARBIDOPA/LEVODOPA 25-250 1 EA TAB PO SCH (07:22)
[2022-12-17] MEDS: POTASSIUM CHLORIDE CRTAB 20 MEQ TABCR PO SCH (07:23)
[2022-12-17] MEDS: APIXABAN 5 MG TABLET PO SCH (07:23)
--- NOTE | 2022-12-17 07:23 | Discharge Summary ---
Discharge Summary Date of Service December 17, 2022 Admission HPI Per Admitting Provider 82yo with PMHx significant for Parksinons, Dementia, Hypothyroidism, parosyxmal afib presented with fevers at home, recent admission for sepsis 2nd to urinary source/stone. Was sent on abx (completed 7 days IV) and sent on Cefdinir and also several days of PO lasix for volume overload. Urology seen outpt and has been rec CT prior to preop for cystoscopy/ureteroscopy CXR w/ mild interstial pulmonary edema, bibasilar densities and b/l effusions persist. Patient evaluated with his at bedside who provides most of history. Had family gathering a day or two ago and children thought he was a little more confused, which is what happens when he has an infection. She notes he typically isn't able to tell you what exactly is wrong, but that he doesn't feel well. She notes he had a fever of 101.3F last evening and that he hadn't had a fever since discharge from the hospital. She notes that he had been having reports of back pain for the last three days and verbalized on the left side, and had previously not reported issues regarding back pain with his stone. He has a history of spinal stnoeis and she reports savular fractures from fall down the steps several years ago and does have a left sided lean from Parkinson's as well as Urine has been qustionable, blood the other day, visibly bright red reported and she reports noting straining urine and showed to urology. Had been on meth hippurate but reported diarrhea with that medication adn had not started since off abx and she reports this was to prevent UTI issues but given side effects wants to discuss with Urology about not continuing this medication. No issues w/ swallowing and she notes prior visit w/ speech eval no issues but was tx for aspiration. He has had a cough at home and not on any PPI/H2 at present. No sputum production but he doesn't clear easily and she does note the other day she audibly heard him wheezing. She notes [facility] HRs had been 100-140s and saw cardiology who increased digoxin. She notes no level checked since that was done. Discussed will check w/ Dr Wu regarding EKG, but will plan to monitor on telemetry. Elevated HR may be contributing to his edema/volume overload and effusions on examination. She does note they took the lasix x 2 days at d/c last time as instructed but that his weight is up about 3lbs from last admission and she has noticed increased LE edema which is a new finding for him. Moved bowels 2 days ago but not uncommon to be 2-3 days for BM. On miralax daily but they had been holding senna. Uses prune juice or other in evening if needed. She does have concerns w/ his age/anesthesia if needing to go to OR for definitive treatment for stone. Has not taken his medications yet at present -- asked nursing to call pharmacy to have them send up now. Regarding code status, patient is a DNR. ER Course: Rocephin 2gm IV, 1L NSS. Currently on 2L and SpO2 99%, Admission Exam Per Admitting Provider General: WD male , chronically ill appearing, resting in bed upon entry, at bedside HEENT: head normocephalic, mmm, trachea midline, +JVD Resp: diminished in bases w/ associated crackles, end expiratory wheezing, on 2L NC, +cough, no tachypnea CV: irregular, +murmur, diminished HS, 1+ b/l LE edema, calves nontender GI: +BS, slight distension, nontender : no corona MSK/Neuro: CN intact grossly, slight decreased strength L>R with dorsiflexion/plantar flexion, sensation intact, right leg slightly shorter ( reports chronic) Psych: alert to person, cooperative/pleasant Principal Dx & Hospital Course #1 = Principal Diagnosis (1) Acute on chronic heart failure with preserved ejection fraction (HFpEF): -Presented with some tachycardia and hypoxia briefly requiring supplemental O2, recent admission with some fluid overload in setting of AFib RVR -CXR w/ mild interstitial edema, bibasilar densities and b/l effusions, now on room air without shortness of breath -Fluid overload likely secondary to recent rapid atrial fibrillation, continue increased digoxin 250 mcg daily, closely monitor fluid status -Received IV diuresis prn during admission, pulm edema resolved per CXR 12/15 no need for diuresis on discharge -Low-sodium diet (2) Nephrolithiasis: -Febrile prior to admission -With 4 mm left ureterolithiasis in the distal ureter, no hydronephrosis, no MAURA -UCx >100k CFU Pseudomonas aeruginosa with intermediate sensitivity to fluoroquinolones, continue cefepime 2g q12h at this time, to continue x7 days on discharge, US guided IV placed 12/16 -BCx collected 12/10 - no growth to date -Appreciate urology consultation- 12/13 had cystoscopy and stent placement after discussion with patient/ by Urology team, will have f/u with Urology regarding stent removal -Continue Tylenol as needed for pain (3) Pneumonia: -Ruled out, as most suspicious of fluid overload as reason for need for supplemental O2 at first, however continue cefepime for now for UTI regardless, start date 12/10 -Blood cultures with no growth to date -Outpatient video swallow study 12/17/2022 (4) PAF (paroxysmal atrial fibrillation): -Rate controlled on telemetry, with intermittent pauses throughout admission (none longer than 3.5 seconds, asymptomatic) -Digoxin was recently increased to 0.250 daily; digoxin level here is acceptable at 1.2, continue this dose -Continue Eliquis -Appreciate cardiology consultation this admission, discussed pauses as well, no indication for intervention or medication change at this time unless pauses symptomatic or greater than>5 seconds (5) Parkinson's disease: -Continue home Sinemet -Neurogenic orthostatic hypotension, continue fludrocortisone and midodrine -Fall precautions/aspiration precautions -He is nonambulatory at baseline (6) Dementia: -Parkinsonian dementia -Frequent orientation/maintain sleep cycle (7) Hyperbilirubinemia: -Intermittent, no GI complaints, no suspicion of acute hepatobiliary pathology (8) Anemia: Baseline Hgb is around 11-13, normocytic, Hgb 11.2 on 12/16 He has had a colonoscopy within the last 5 years and was told he did not need further screening colonoscopies Has never had an EGD, could consider this as an outpatient No bloody stools noted, and is having hematuria which continues to improve, discussed with Urology 12/15 that this is expected at least to some extent until stent is removed Iron studies show iron deficiency, received Venofer 300mg IV x1 while admitted B12, folate, TSH are normal (9) Hypokalemia: HypoK resolved, was in the setting of intermittent IV diuresis for fluid overload KCl supplement PO given while admitted Plan Disposition: Discharge early this morning for video swallow study, then return home with IV antibiotics and care per /caregivers, follow-up with urology Discharge Exam Constitutional WD/WN, vitals as above Psychiatric A+Ox3, euthymic affect Genitourinary Corona draining clear pink/red urine Updated Medication List Medication Instructions Recorded Confirmed Type atorvastatin 20 mg tablet (Lipitor) 20 mg PO QAM 05/11/19 12/17/22 History cholecalciferol (vitamin D3) 50 2,000 unit PO TID 05/11/19 12/17/22 History mcg (2,000 unit) capsule (Vitamin D3) clonazepam 1 mg tablet 2 mg PO HS #45 tabs 05/11/19 12/17/22 History donepezil 10 mg tablet (Aricept) 10 mg PO HS 05/11/19 12/17/22 History levothyroxine 50 mcg tablet 50 mcg PO QAM 06/30/19 12/17/22 History (Synthroid) melatonin 10 mg tablet 10 mg PO HS 06/30/19 12/17/22 History multivitamin (Daily Multi-Vitamin 1 tab PO PM 06/30/19 12/17/22 History tablet) fludrocortisone 0.1 mg tablet 0.2 mg PO QAM 09/16/21 12/17/22 History sennosides 8.6 mg tablet (Senokot) 17.2 mg PO BID PRN Constipation 09/16/21 12/17/22 History hydrocortisone 2.5 % topical cream 1 applic EXT TID PRN Hemorrhoids 09/27/22 12/17/22 History with perineal applicator (Proctosol HC) ketoconazole 2 % topical cream 1 applic topical BID PRN NEEDED 09/27/2212/17 History venlafaxine 37.5 mg 37.5 mg PO QAM 09/27/22 12/17/22 History capsule,extended release 24 hr apixaban 5 mg tablet (Eliquis) 5 mg PO BID #60 tabs 11/28/22 12/17/22 Rx carbidopa 25 mg-levodopa 250 mg 1 tab PO QID 12/17/22 12/17/22 History tablet digoxin 250 mcg (0.25 mg) tablet 250 mcg PO 1700 12/17/22 12/17/22 History midodrine 2.5 mg tablet 2.5 mg PO TID 12/17/22 12/17/22 History polyethylene glycol 3350 17 8.5 gm PO QAM 12/17/22 12/17/22 History gram/dose oral powder (Miralax) Hospital Stay Data Consultations 12/10/22 08:01 ED Decision to Admit Stat 12/10/22 12:26 Consult Urology Routine 12/11/22 08:18 Consult Cardiology Routine Procedures Performed Operation Date: 12/13/22 13:30 Actual Procedures p Cystoscopy, Left Retrograde Pyelogram, Left Stent Placement(Not Applicable) - Micheal Mistry MD Diagnostic Imagining Performed 12/10/22 06:35 CT stones [CT abd pelvis wo con] Stat 12/13/22 13:30 FL retrograde includes kub Routine Pending Results Patient Have Any Pending Studies at Discharge: No Discharge Instructions Given to Patient (Per Discharging Provider) You were admitted to the hospital and evaluated and treated for urinary tract infection secondary to infected stone. You were given IV antibiotics, which we will continue on discharge, please see the instructions below. You also had a stent placed, and urology will follow-up with you within the week, so if you are not contacted by their office please give their office a call for a follow-up appointment. While in the hospital, you were noted to have some fluid overload, and this was suspected to be due to high heart rates in the recent past from your A-fib, which has been controlled for many days at this point on your higher dose of digoxin. You are not requiring oxygen on discharge home. Be sure to maintain a low-sodium diet, to decrease risk of fluid overload developing at home. Home health nurses will be coming to the house to show you how to use the IV antibiotics. The antibiotic is called cefepime, and it is to be dosed every 12 hours until the prescription runs out, about 7 days after discharge from the hospital. If you have return of high fevers, chills, worsening of back pain that is concerning to you, contact your outpatient doctors and if urgent concern for your safety please return to the hospital for evaluation. We did not suspect that you had an aspiration pneumonia during this admission, but be sure to keep your appointment for your video swallow study to further evaluate if and how much you are aspirating, to further help with your care for your outpatient doctors. None of your other home medications were changed, and you can resume them at home on your usual schedule. Total Time Total Time Spent Total Time Spent (In Minutes): 35 minutes Coding Level of Care Code 45380 INP/OBS DISCH >30 MIN Diagnoses Acute on chronic heart failure with preserved ejection fraction (HFpEF) I50.33 Nephrolithiasis N20.0 Pneumonia J18.9 PAF (paroxysmal atrial fibrillation) I48.0 Parkinson's disease G20 Dementia F03.90 Hyperbilirubinemia E80.6 Anemia D64.9 Hypokalemia E87.6
[2022-12-17] MEDS: VENLAFAXINE HCL XR 37.5 MG CAPXR PO SCH (07:24)
[2022-12-17] MEDS: DIGOXIN 0.25 MG TAB PO SCH (07:24)
[2022-12-17] MEDS: FLUDROCORTISONE ACETATE 0.1 MG TAB PO SCH (07:24)
[2022-12-17] MEDS: MIDODRINE HCL 2.5 MG TAB PO SCH (07:25)
[2022-12-17] MEDS: POLYETHYLENE (MIRALAX) 17 GM PACK PO SCH (07:25)
== END 2022-12-17 09:27 | disposition home health service (06) | DRG 659 ==
LOC: ED 04:32 → SUATTDRO 08:46 → EDINP 11:02 → 2S 12:27

== ENCOUNTER 2022-12-24 07:12 | Observation (INO) ==
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
[~2022-12-24 07:12] MED LIST changes: -ASPI81TA28 PO; -ATOR-22 PO; -CARB25TA12 PO; -CHOL200010 PO; +CIPROFLOXACIN / D5W 400 MG/200 ML BAG IV SCH; -CLON1TAB3 PO; -CYAN10004 PO; -ESCI10TA17 PO; -FLUD0.1T10 PO; +LR 15ML/HR IV SCH; -MIRA1TAB3 PO; -MISCCAP80 PO; -MULT-506 PO; -OMEG10007 PO
[2022-12-24] MEDS ORDERED: ONDANSETRON INJ 2 MG/ML 2 ML VIAL ONE (07:53)
[2022-12-24] MEDS ORDERED: LIDOCAINE 2% MPF LOCAL 5 ML VIAL ONE (07:53)
[2022-12-24] MEDS ORDERED: PROPOFOL IV EMULSION 10 MG/ML 20 ML VIAL IV ONE (07:53)
[2022-12-24] MEDS ORDERED: fentaNYL citrate PF 100 MCG/2 ML VIAL ONE (07:54)
[2022-12-24] MEDS ORDERED: ATROPINE SULFATE 0.1 MG/ML 10ML SYR IV PRN (08:46)
[2022-12-24] MEDS ORDERED: ONDANSETRON INJ 2 MG/ML 2 ML VIAL IV PRN (08:46)
[2022-12-24] MEDS ORDERED: ePHEDrine sulfate 50 MG/ML AMP IV PRN (08:46)
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
[2022-12-24] MEDS ORDERED: CEFEPIME 1,000 MG in SYRINGE 0 ML IV ONE (09:15)
[2022-12-24] MEDS ORDERED: HYDROCORTISONE SOD SUCCINATE 100 MG/2 ML VIAL ONE (09:48)
--- NOTE | 2022-12-24 10:14 | Operative Report ---
PG Post Operative Report Pre & Post Diagnosis Operation Date: 12/24/22 08:40 Pre-Op Diagnosis: Nephrolithiasis, obstructive left ureteral calculus. Post-Op Diagnosis: Nephrolithiasis, obstructive left ureteral calculus. I identified the patient and participated in the time-out.: Yes Procedure Operation Date: 12/24/22 08:40 Actual Procedures p Cystoscopy, Left Ureteronephroscopy, Left Retrograde Pyelogram, (Left) - Compa Purcell MD s Exchange of Stent Catheter-Left(Left) - Compa Purcell MD Surgeon Compa Purcell MD Quality Assurance Lab Technician none Estimated Blood Loss 0 Findings Consistent with Post-Op Diagnosis Specimens Stone for chemical analysis Description of Procedure The patient was identified in the preoperative holding area, appropriate informed consents were reviewed and completed and the patient was transferred to the operative suite. Upon arrival, appropriate antibiotics (cefepime IV administered this AM) and anesthesia were administered and the patient was placed in dorsal lithotomy position and prepped and draped in sterile fashion. Begin the case to pass a 20 Lao cystoscope with 30 degree lens per inspection revealed a healthy-appearing urethra and moderately enlarged prostate. Upon entry to the bladder he had some hematuria which was irrigated and the bladder cleared. A left ureteral stent was identified protruding from the orifice and the distal aspect of this was grasped withdrawn to the meatus. I was able to intubate the stent with a wire which was advanced to the kidney without difficulty. After removing the stent I reentered the bladder with a semirigid ureteroscope and guided into the distal left ureter. 3 to 4 cm above the UO I encountered 2 yellow appearing calculi. These were not impacted but simply sitting in a moderately dilated ureter with a tight area just distal to them. I used a 365 m laser fiber to fragment the stones into smaller pieces and then irrigate this pieces out of the ureter. I advanced the scope maximallyreaching the proximal ureter and seeing no additional stones. I then carefully withdrew the ureteroscope and placed a 6 Lao by 26 cm double-J stent with a string left attached. Stone pieces were irrigated out of the bladder and sent off the table for chemical analysis. He was reversed of anesthesia and taken to the rec overy room in stable condition. There were no complications. I attest to the content of the Intraoperative Record and any orders documented therein. Any exceptions are noted below.
--- NOTE | 2022-12-24 10:20 | Fluoroscopy Report ---
FL KUB CLINICAL HISTORY: LEFT TECHNIQUE: 4 views were obtained with the C-arm in the OR with the above procedure. Total fluoroscopy time was 5.5 seconds. Radiation dose was 1.16 mGy. Comparison: Comparison is made to CT abdomen pelvis 12/02/2022 FINDINGS/IMPRESSION: Intraoperative images were obtained of left cystogram, laser lithotripsy, and st ent exchange. Please correlate with intraoperative fluoroscopy and operative report. ACT 112: Negative or not required by law. Electronically signed by: Philip Hinton M.D. 12/24/2022 10:19 AM
--- NOTE | 2022-12-24 11:08 | Anesthesiology Progress Note ---
Date of Service December 24, 2022 Anesthesia Post Procedure Vital Signs Vital Signs: Temp Pulse Pulse Resp BP Pulse Ox O2 Del Method 12/24/22 10:20 70 13 145/74 H 100 Oxymask 12/24/22 10:30 36.6 C 70 17 143/72 H 97 Oxymask 12/24/22 10:10 63 14 145/78 H 100 Oxymask 12/24/22 10:02 36.7 C 69 14 128/59 L 97 Oxymask 12/24/22 07:40 36.5 C 46 L 20 172/96 H 98 Room Air O2 Flow Rate 12/24/22 10:20 5 12/24/22 10:30 2 12/24/22 10:10 5 12/24/22 10:02 5 12/24/22 07:40 Transfer of Care Handoff Completed per policy Notes Mental Status: alert / awake / arousable and participated in evaluation Patient Amnestic to Procedure: Yes Nausea / Vomiting: adequately controlled Pain: adequately controlled Airway Patency, RR, SpO2: stable & adequate BP & HR: stable & adequate Hydration State: stable & adequate Anesthetic Complications: no major complications apparent and Pt Satisfied with anesthetic care
[2022-12-24] MEDS ORDERED: HYDROCORTISONE HC 2.5% CRM 30GM TUBE EXT PRN (11:19)
[2022-12-24] MEDS ORDERED: SENNA 8.6 MG TAB PO PRN (11:19)
[2022-12-24] MEDS ORDERED: NON-FORMULARY MEDICATION (Cefepime [Cefepime] 2 gram Recon Soln) IV SCH (11:19)
[2022-12-24] MEDS ORDERED: traMADol HCL 50 MG TABLET PO PRN (11:19)
[2022-12-24] MEDS: ACETAMINOPHEN 325 MG TAB PO PRN (12:16)
[2022-12-24] MEDS: CHOLECALCIFEROL 1,000 UNITS 25 MCG TAB PO SCH (13:13)
[2022-12-24] MEDS: MIDODRINE HCL 2.5 MG TAB PO SCH ×2 (13:14→17:03)
[2022-12-24] MEDS: CARBIDOPA/LEVODOPA 25-250 1 EA TAB PO SCH ×3 (13:14→22:20)
[2022-12-24] MEDS: LACTATED RINGER'S 1,000 ML IV SCH (13:14)
[2022-12-24] MEDS: CEFEPIME 2,000 MG in SYRINGE 0 ML IV SCH (14:39)
[2022-12-24] MEDS ORDERED: DIGOXIN 0.25 MG TAB PO SCH (17:00)
[2022-12-24] MEDS ORDERED: MELATONIN 3 MG TAB PO SCH (21:00)
[2022-12-24] MEDS ORDERED: DONEPEZIL HCL 10 MG TAB PO SCH (21:00)
[2022-12-24] MEDS ORDERED: MULTIVITAMIN TAB PO SCH (21:00)
[2022-12-24] MEDS ORDERED: clonazePAM 1 MG TAB PO SCH (21:00)
[2022-12-24] MEDS: APIXABAN 5 MG TABLET PO SCH (22:19)
[2022-12-25] MEDS: LACTATED RINGER'S 1,000 ML IV SCH (02:41)
[2022-12-25] MEDS: CEFEPIME 2,000 MG in SYRINGE 0 ML IV SCH (02:42)
[2022-12-25] MEDS ORDERED: LEVOTHYROXINE SODIUM 50 MCG TABLET PO SCH (06:30)
--- NOTE | 2022-12-25 07:56 | Urology Progress Note ---
Date of Service December 25, 2022 Assessment & Plan (1) Nephrolithiasis: Plan: No issues overnight Tolerated surgery very well yesterday Plan for dose of cefepime this morning and then discharged home He will not require further antibiotics after discharge Plan for stent removal this morning before discharge home Admission and Anticipated Discharge Date Admission Date: December 24, 2022 Subjective No issues overnight Slept okay No significant discomfort Afebrile Labs drawn this morning - pending Physical Exam Constitutional: well developed and well nourished Respiratory: no respiratory distress Cardiovascular: Extremities: no pedal edema Gastrointestinal (Abdomen): Inspection/Auscultation: abdomen normal to inspection Results & Data Vital Signs (Past 12 Hours) Vital Signs Temp Pulse Pulse Resp BP BP Pulse Ox 12/25/22 07:46 36.7 C 66 16 145/56 H 95 12/25/22 04:15 36.6 C 73 18 138/70 96 12/25/22 00:25 36.7 C 74 18 142/68 H 96 12/24/22 22:26 12/24/22 20:03 36.8 C 72 18 133/71 96 O2 Del Method 12/25/22 07:46 Room Air 12/25/22 04:15 Room Air 12/25/22 00:25 Room Air 12/24/22 22:26 Room Air 12/24/22 20:03 Room Air PG Care Time/CCT Total # of Minutes Spent Total Time Spent with Patient: Total time spent is greater than 50% in coordination of care (as documented) at patient's floor/unit and/or counseling patient: Coding Level of Care Code None Diagnoses Nephrolithiasis N20.0
[2022-12-25 08:14] LABS: Basophils # (auto) 0.04 K/uL (0-0.2); Basophils % (auto) 0.6 %; Eosinophils # (auto) 0.16 K/uL (0-0.50); Eosinophils % (auto) 2.2 %; Hematocrit (blood only) 32.5 % (42.0-52.0); Hemoglobin 11.1 g/dl (14.0-18.0); Immature Granulocytes # (auto) 0.02 K/uL (0.01-0.20); Immature Granulocytes % (auto) 0.3 %; Lymphocytes # (auto) 0.83 K/uL (1.2-3.4); Lymphocytes % (auto) 11.6 %; Mean Corpuscular Hemoglobin 31.1 pg (25.0-34.0); Mean Corpuscular Hgb Conc 34.2 g/dL (32.0-36.0); Mean Platelet Volume 10.9 fL (9.4-12.4); Monocytes # (auto) 0.58 K/uL (0.11-0.59); Monocytes % (auto) 8.1 %; Neutrophils % (auto) 77.2 %; Platelet Count 173 K/uL (130-400); RDW Coefficient of Variation 13.4 % (11.5-14.5); RDW Standard Deviation 45.1 fL (36.4-46.3); Red Blood Count 3.57 M/uL (4.70-6.10); White Blood Count 7.13 K/ul (4.8-10.8)
[2022-12-25] MEDS ORDERED: FLUDROCORTISONE ACETATE 0.1 MG TAB PO SCH (09:00)
[2022-12-25] MEDS ORDERED: POLYETHYLENE (MIRALAX) 17 GM PACK PO SCH (09:00)
[2022-12-25] MEDS ORDERED: VENLAFAXINE HCL XR 37.5 MG CAPXR PO SCH (09:00)
[2022-12-25] MEDS ORDERED: ATORVASTATIN 20 MG TAB PO SCH (09:00)
[2022-12-25] MEDS: APIXABAN 5 MG TABLET PO SCH (09:25)
[2022-12-25] MEDS: CARBIDOPA/LEVODOPA 25-250 1 EA TAB PO SCH ×2 (09:26→12:29)
[2022-12-25] MEDS: CHOLECALCIFEROL 1,000 UNITS 25 MCG TAB PO SCH (09:26)
[2022-12-25 09:36] LABS: Potassium 3.7 mmol/L (3.5-5.1)
[2022-12-25 09:42] LABS: BUN Creatinine Ratio 24.7 (10-20); Est GFR (African American) 99.3 ml/min; Est GFR (Non-African American) 85.7 ml/min
[2022-12-25] MEDS: MIDODRINE HCL 2.5 MG TAB PO SCH ×2 (09:42→12:29)
[2022-12-25] MEDS: ACETAMINOPHEN 325 MG TAB PO PRN (11:41)
--- NOTE | 2022-12-27 09:30 | Discharge Summary ---
Date of Service December 27, 2022 Admission HPI Per Admitting Provider obstructive left ureteral calculus s/p stent complicated case and history high risk because of parkinsons, cardiac history pseudomonas in the urine sensitive to cefepime Principal Diagnosis kidney stone Discharge Data Allergies Allergy/AdvReac Type Severity Reaction Status Date / Time No Known Allergies Allergy Verified 12/26/22 15:34 Procedures Performed Operation Date: 12/24/22 08:40 Actual Procedures p Cystoscopy, Left Ureteronephroscopy, Left Retrograde Pyelogram, (Left) - Compa Purcell MD s Exchange of Stent Catheter-Left(Left) - Compa Purcell MD Ordered Studies 12/24/22 08:40 FL KUB Routine Hospital Course (1) Kidney stones, calcium oxalate: Patient admitted after kidney stone surgery for observation given his significant comorbidities. Fortunately had an uneventful hospitalization, his stent was removed prior to discharge home and he was discharged home on postoperative day #1 in stable condition. Total Time Total Time Spent Total Time Spent (In Minutes): 15 Discharge Plan Discharge Items Patient Disposition: Home - Self-Care Reason For Visit: KIDNEY STONE Discharge Diagnosis: Kidney stone Activity: Resume your previous activity Lifting: None Bathing: No limitations Sexual Activity: When tolerated Exercise/Sports: As tolerated Driving/Machine Use: Resume 1 day after discharge Non-emergency contact: Surgeon and Urologist Call non-emergency contact if: your pain is not controlled, you have a fever and your temperature is above 101 Follow-up/Referrals: Compa Purcell MD [Physician] - (LUIS FROM DR PURCELL'S OFFICE WILL CALL PATIENT WITH HOSPITAL FOLLOW UP AFTER SHE SPEAKS WITH DR PURCELL.) Philip Whitfield MD [Primary Care Provider] - Diet: Regular Addtl Attending Provider Instructions: Please take all medications as prescribed and keep all follow-ups as scheduled. Your stent was removed prior to discharge. You may experience some discomfort after stent removal. You can take Tylenol as needed. Recommend stay well hydrated. Please call our office at [phone] with any questions, concerns or need to reschedule appointments for any reason. We are happy to assist you. Pending Studies at Discharge: No Stand-Alone Forms: My [employer], Smoking Cessation Medications and DC Order Prescriptions: Continued phenazopyridine [Pyridium] 200 mg tablet 200 mg PO TID PRN (Reason: pain) Qty: 10 0RF cholecalciferol (vitamin D3) [Vitamin D3] 2,000 unit capsule 2,000 unit PO TID clonazepam 1 mg tablet 2 mg PO HS Qty: 45 donepezil [Aricept] 10 mg tablet 10 mg PO HS atorvastatin [Lipitor] 20 mg tablet 20 mg PO QAM multivitamin [Daily Multi-Vitamin] Tablet 1 tab PO PM melatonin 10 mg Tablet 10 mg PO HS Eliquis 5 mg Tablet 5 mg PO BID Qty: 60 5RF carbidopa-levodopa 25-250 mg Tablet 1 tab PO QID midodrine 2.5 mg Tablet 2.5 mg PO TID Rx Instructions: take at 8am, 12noon, and 5pm. Do not take last dose of day after 6PM or within 4 hrs of bedtime. digoxin 250 mcg (0.25 mg) tablet 250 mcg PO 1700 polyethylene glycol 3350 [Miralax] 17 gram/dose powder 8.5 gm PO QAM sennosides [Senokot] 8.6 mg Tablet 17.2 mg PO BID PRN (Reason: Constipation) fludrocortisone 0.1 mg tablet 0.2 mg PO QAM venlafaxine 37.5 mg capsule,extended release 24hr 37.5 mg PO QAM hydrocortisone [Proctosol HC] 2.5 % cream with perineal applicator 1 applic EXT TID PRN (Reason: Hemorrhoids) ketoconazole 2 % cream 1 applic topical BID PRN (Reason: NEEDED) Discontinued cefepime 2 gram Recon Soln 2 g IV Q12H No Action levothyroxine 75 mcg tablet 75 mcg PO DAILYBB Discharge Orders: Discharge Order (Routine); Ordered 12/25/22 Ordered By: Hilda Chin/Other Patient Handouts: Phenazopyridine Oral Tablet Admission Data Admit Date/Time: 12/24/22 10:13 Attending Provider: Compa Purcell Admit Provider: Compa Purcell Primary Care Provider: Philip Whitfield Other Interventions: Discharge Summary Assessment (RN) Last Done: 12/25/22 12:32 Coding Level of Care Code 01714 IN/OBS DISCH 30 MIN/LESS Diagnoses Kidney stones, calcium oxalate N20.0
== END 2022-12-25 12:55 | disposition home or self-care (01) ==
LOC: ASU 07:12 → 3N 07:12

== ENCOUNTER 2022-12-26 12:06 | Inpatient (IN) ==
--- NOTE | 2022-12-26 13:34 | XRay Report ---
XR chest 1V not portable CLINICAL HISTORY: Sepsis. COMPARISON STUDY: Chest CT April 13, 2021. Chest radiograph December 15, 2022. FINDINGS: There is no pneumothorax. There are small bilateral pleural effusions, left larger than rig ht. Left midlung and left basilar airspace opacity is again noted. Left lower lung aeration is slight ly improved since prior exam. Cardiomegaly is unchanged. Persistent mild pulmonary edema. IMPRESSION: 1. Cardiomegaly with persistent pulmonary edema. 2. Small bilateral pleural effusions. Left midlung and left basilar airspace opacity with slight impr ovement in lower lung aeration since prior exam. This airspace opacity could reflect atelectasis or c onsolidation. Continued radiographic follow-up is recommended. ACT 112: Negative or not required by law. Electronically signed by: Dax Pozo M.D. 12/26/2022 1:32 PM
[2022-12-26 14:13] LABS: Basophils # (auto) 0.03 K/uL (0-0.2); Basophils % (auto) 0.3 %; Eosinophils # (auto) 0.05 K/uL (0-0.50); Eosinophils % (auto) 0.4 %; Hematocrit (blood only) 33.3 % (42.0-52.0); Hemoglobin 11.4 g/dl (14.0-18.0); Immature Granulocytes # (auto) 0.04 K/uL (0.01-0.20); Immature Granulocytes % (auto) 0.4 %; Lymphocytes # (auto) 0.78 K/uL (1.2-3.4); Lymphocytes % (auto) 6.8 %; Mean Corpuscular Hemoglobin 30.6 pg (25.0-34.0); Mean Corpuscular Hgb Conc 34.2 g/dL (32.0-36.0); Mean Corpuscular Volume 89.5 fL (80.0-100.0); Mean Platelet Volume 11.3 fL (9.4-12.4); Monocytes # (auto) 0.87 K/uL (0.11-0.59); Monocytes % (auto) 7.6 %; Neutrophils # (auto) 9.63 K/uL (1.40-6.50); Neutrophils % (auto) 84.5 %; Platelet Count 185 K/uL (130-400); RDW Coefficient of Variation 13.6 % (11.5-14.5); RDW Standard Deviation 44.7 fL (36.4-46.3); Red Blood Count 3.72 M/uL (4.70-6.10)
[2022-12-26 14:36] LABS: INR 1.3 (0.9-1.1); Partial Thromboplastin Ratio 1.3; Partial Thromboplastin Time 35.1 Seconds (21.0-31.0); Prothrombin Time 13.5 Seconds (9.0-12.0)
[2022-12-26 14:40] LABS: Alanine Aminotransferase 4 U/L (7-52); Albumin Globulin Ratio 1.3 (0.9-2); Albumin Level 3.8 gm/dl (3.4-5.0); Alkaline Phosphatase 93 U/L (34-104); Anion Gap 7 (3-11); Aspartate Aminotransferase 24 U/L (13-39); BUN Creatinine Ratio 23.8 (10-20); Bilirubin,Total 1.3 mg/dl (0.2-1.0); Blood Urea Nitrogen 19 mg/dl (6-23); Calcium 9.1 mg/dl (8.6-10.3); Carbon Dioxide 30 mmol/L (21-32); Chloride 100 mmol/L (98-107); Est GFR (African American) 97.8 ml/min; Est GFR (Non-African American) 84.4 ml/min; Glucose 113 mg/dl (70-99(Fasting)); Magnesium 1.8 mg/dl (1.7-2.4); Potassium 3.7 mmol/L (3.5-5.1); Sodium 137 mmol/L (136-145); Total Protein 6.8 gm/dl (6.0-8.3)
[2022-12-26] MEDS ORDERED: VANCOMYCIN CONSULT ACTIVE PRN (14:46)
[2022-12-26] MEDS ORDERED: CEFEPIME 2,000 MG/20 ML VIAL IV STA (14:46)
[2022-12-26] MEDS ORDERED: VANCOMYCIN HCL 1,750 MG in SODIUM CHLORIDE 0.9% 500 ML IV ONE (14:46)
[2022-12-26] MEDS ORDERED: SODIUM CHLORIDE 0.9% 500 ML IV ONE (14:54)
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
[2022-12-26] MEDS ORDERED: FUROSEMIDE INJ 20 MG/2 ML VIAL IV ONE (16:19)
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
--- NOTE | 2022-12-26 17:07 | CT Scan Report ---
CT SCAN OF THE CHEST WITHOUT IV CONTRAST CLINICAL HISTORY: Hypoxia. COMPARISON STUDY: Chest x-ray dated 12/26/2022. Chest CT dated 04/13/2021. TECHNIQUE: CT scan of the thorax was performed from the thoracic inlet to the upper abdomen. Images are reviewed in the axial, sagittal, and coronal planes. IV contrast was not administered for this ex amination as per the referring clinician. A dose lowering technique was utilized adhering to the france Morales. The examination is compromised by motion artifact, as well as by streak artifact fr om the arms which could not be elevated of the chest. CT DOSE: 507.04 mGy.cm FINDINGS: Thyroid: Imaged portions of the thyroid gland are normal in size and attenuation. Thoracic aorta: There is atherosclerotic calcification of the thoracic aorta, which is normal in tray bart and demonstrates standard 3-vessel arch anatomy. Heart: The heart is enlarged noting a [id number]-mu-ccznrpae pericardial effusion. The coronary arteries a re densely calcified. The pulmonary trunk is dilated, measuring 3.8 cm in diameter. This suggests pul monary artery hypertension. Lungs and pleural spaces: Evaluation of the lung parenchyma is compromised by motion artifact. Secret ions fill the left lower lobe bronchus. The trachea appears clear. There are small to moderate pleura l effusions with dependent consolidation. Loculated fluid is seen along the left major fissure and at the left apex. Airspace consolidation is seen throughout the left lung, most confluent at the left a pex, the lingula, and left lower lobe. The right upper lobe appears clear. Mild patchy consolidation is seen in the right middle lobe. Mild intralobular septal thickening is observed. A [address] eural-based nodularity in the right middle lobe along the minor fissure on image #152 is unchanged an d of doubtful significance. Mediastinum: There are numerous mildly enlarged mediastinal lymph nodes. Prevascular nodes measure up to 10 mm short axis. Precarinal nodes measure up to 14 mm in short axis. Jessa: Not well assessed without IV contrast. Axillae: There is no axillary lymphadenopathy. Upper abdomen: Residual enteric contrast is noted in the partially imaged left colon. Partially visua lized upper abdominal viscera is otherwise grossly unremarkable. Skeletal structures: The skeletal structures are osteopenic. Degenerative change and mild hyperkyphos is is noted in the thoracic spine. No lytic or blastic bony lesions are seen. IMPRESSION: 1. Cardiomegaly with intralobular septal thickening. This suggests fluid overload/congestive failure. 2. Dtutq-kj-eqmvmrqx pleural effusions with dependent consolidation. 3. There is dense airspace consolidation throughout the left lung as above, with milder patchy airspa ce consolidation in the right middle and lower lobes. Multifocal pneumonia/aspiration pneumonitis is favored. Superimposed pulmonary edema is not excluded. Correlate clinically. Radiographic follow-up t o resolution is recommended. 4. Fluid/debris fills the left lower lobe airways. Correlate for evidence of aspiration. 5. There are mildly enlarged mediastinal lymph nodes. 6. Additional findings above. ACT 112: Negative or not required by law. Electronically signed by: Edi Wood M.D. 12/26/2022 5:05 PM
[2022-12-26] MEDS ORDERED: POLYETHYLENE (MIRALAX) 17 GM PACK PO PRN (18:31)
[2022-12-26] MEDS ORDERED: ALUMINUM/MAGNESIUM SUSP 30 ML UDC PO PRN (18:31)
[2022-12-26] MEDS ORDERED: ACETAMINOPHEN 325 MG TAB PO PRN (18:31)
[2022-12-26] MEDS ORDERED: PHENAZOPYRIDINE HCL 200 MG TAB PO PRN (18:31)
[2022-12-26] MEDS ORDERED: ONDANSETRON INJ 2 MG/ML 2 ML VIAL IV PRN (18:31)
[2022-12-26] MEDS ORDERED: MAGNESIUM HYDROXIDE SUSP 30 ML UDC PO PRN (18:31)
[2022-12-26] MEDS: metroNIDAZOLE 500 MG/100 ML BAG IV SCH (20:30)
[2022-12-26] MEDS: ALBUT/IPRATROP 3MG/0.5MG NEB 3 ML VIAL NEB SCH (21:00)
[2022-12-26] MEDS: CARBIDOPA/LEVODOPA 25-250 1 EA TAB PO SCH ×2 (22:05→22:20)
[2022-12-26] MEDS: DIGOXIN 0.25 MG TAB PO SCH (22:05)
[2022-12-26] MEDS: clonazePAM 1 MG TAB PO SCH (22:06)
[2022-12-26] MEDS: APIXABAN 5 MG TABLET PO SCH (22:06)
[2022-12-26] MEDS: DONEPEZIL HCL 10 MG TAB PO SCH (22:06)
[2022-12-26] MEDS: CHOLECALCIFEROL 1,000 UNITS 25 MCG TAB PO SCH (22:06)
[2022-12-26] MEDS: MELATONIN 3 MG TAB PO SCH (22:07)
[2022-12-26] MEDS: guaiFENesin 600 MG TABCR PO SCH (22:07)
[2022-12-26] MEDS: CEFEPIME 2,000 MG in SYRINGE 0 ML IV SCH (23:12)
[2022-12-27] MEDS ORDERED: VANCOMYCIN HCL 1,000 MG in SODIUM CHLORIDE 0.9% 250 ML IV SCH
[2022-12-27 00:50] LABS: Appearance Urine Cloudy (Clear); Bacteria Urine Automated Negative (Negative); Bilirubin Urine Negative (Negative); Blood Urine 3+ (Negative); Color Urine Yellow; Glucose Urine UA Negative (Negative); Ketones Urine Negative (Negative); Leukocyte Esterase Urine Negative (Negative); Nitrite Urine Negative (Negative); Protein Urine 1+ (Negative); Specific Gravity Urine 1.014 (1.000-1.030); Urobilinogen Urine Negative (Negative); pH Urine 5.5 (4.5-7.5)
[2022-12-27] MEDS: metroNIDAZOLE 500 MG/100 ML BAG IV SCH (05:48)
[2022-12-27] MEDS: CEFEPIME 2,000 MG in SYRINGE 0 ML IV SCH ×3 (06:23→21:24)
[2022-12-27] MEDS: LEVOTHYROXINE SODIUM 75 MCG TABLET PO SCH (06:23)
[2022-12-27 06:39] LABS: Basophils # (auto) 0.04 K/uL (0-0.2); Basophils % (auto) 0.4 %; Eosinophils # (auto) 0.15 K/uL (0-0.50); Eosinophils % (auto) 1.6 %; Hematocrit (blood only) 31.4 % (42.0-52.0); Hemoglobin 10.4 g/dl (14.0-18.0); Immature Granulocytes # (auto) 0.03 K/uL (0.01-0.20); Immature Granulocytes % (auto) 0.3 %; Lymphocytes % (auto) 9.3 %; Mean Corpuscular Hemoglobin 30.4 pg (25.0-34.0); Mean Corpuscular Hgb Conc 33.1 g/dL (32.0-36.0); Mean Corpuscular Volume 91.8 fL (80.0-100.0); Mean Platelet Volume 11.2 fL (9.4-12.4); Monocytes # (auto) 0.91 K/uL (0.11-0.59); Monocytes % (auto) 9.4 %; Neutrophils # (auto) 7.64 K/uL (1.40-6.50); Platelet Count 156 K/uL (130-400); RDW Coefficient of Variation 13.7 % (11.5-14.5); RDW Standard Deviation 45.9 fL (36.4-46.3); Red Blood Count 3.42 M/uL (4.70-6.10); White Blood Count 9.67 K/ul (4.8-10.8)
[2022-12-27 06:51] LABS: Calcium 8.4 mg/dl (8.6-10.3); Magnesium 1.8 mg/dl (1.7-2.4); Potassium 3.3 mmol/L (3.5-5.1)
[2022-12-27 06:57] LABS: BUN Creatinine Ratio 26.4 (10-20); Creatinine Clr Calc Pharmacy 89.8 ml/min; Est GFR (African American) 102.1 ml/min; Est GFR (Non-African American) 88.1 ml/min
[2022-12-27] MEDS: ALBUT/IPRATROP 3MG/0.5MG NEB 3 ML VIAL NEB SCH ×4 (07:59→19:59)
[2022-12-27] MEDS: SENNA 8.6 MG TAB PO SCH (08:54)
[2022-12-27] MEDS: VENLAFAXINE HCL XR 37.5 MG CAPXR PO SCH (08:54)
[2022-12-27] MEDS: MIDODRINE HCL 2.5 MG TAB PO SCH ×3 (08:54→17:30)
[2022-12-27] MEDS: APIXABAN 5 MG TABLET PO SCH ×2 (08:54→20:16)
[2022-12-27] MEDS: CHOLECALCIFEROL 1,000 UNITS 25 MCG TAB PO SCH ×3 (08:54→20:17)
[2022-12-27] MEDS: guaiFENesin 600 MG TABCR PO SCH ×2 (08:55→20:18)
[2022-12-27] MEDS: ATORVASTATIN 20 MG TAB PO SCH (08:55)
[2022-12-27] MEDS: FLUDROCORTISONE ACETATE 0.1 MG TAB PO SCH (08:55)
[2022-12-27] MEDS: CARBIDOPA/LEVODOPA 25-250 1 EA TAB PO SCH ×4 (08:55→20:16)
--- NOTE | 2022-12-27 09:54 | Hospitalist Progress Note ---
Date of Service December 27, 2022 Assessment & Plan (1) Pneumonia: Plan: Left-sided pneumonia with acute hypoxic respiratory failure and metabolic encephalopathy secondary Acute/unstable - high risk - concern for gram negative or aspiration pneumonia - Cefepime and Vancomycin with assistance of pharmacy for dosing - Duonebs QIDR and q2 prn - Mucinex 600mg BID - Blood cultures pending - previous video swallow 12/17 without aspiration - Given parkinson's, re consult STATION ENGINEER CHIEF (2) Atrial fibrillation with controlled ventricular rate: Plan: AFib/History of HFpEF/HLD Chronic/stable - one dose of Lasix 20mg IV x1 - Continue Eliquis, Digoxin - Continue statin therapy Patient hypokalemic this was augmented orally we will check a potassium level in the morning (3) Dementia: Plan: Chronic/stable - Baseline A&O x3 per , can engage in conversation, etc. - Continue Aricept, Melatonin, and Klonopin (4) Parkinson's disease with neurogenic orthostatic hypotension: Plan: Chronic/stable - No longer ambulates - Continue Sinemet - Continue Flornief and Midodrine Plan Eliquis will provide adequate DVT ppx. Admission and Anticipated Discharge Date Admission Date: December 26, 2022 Subjective pt is awake and alert x 2, family is at bedside endorses he is typically non ambulatory and moves from bed to chair to bathroom decompensated one day after D/c and has aspiration pneumonia with concern for gram negative pneumonia Physical Exam Physical Exam: Patient awake and oriented x2 Card exam is regular with a systolic murmur Lungs have bilateral basilar rales left greater than right Patient has neurological changes consistent with his parkinsonism Results & Data Results & Data Vital Signs (Past 12 Hours) Vital Signs Temp Pulse Pulse Pulse Resp BP Pulse Ox 12/27/22 08:31 97.9 F 95 H 18 127/52 L 94 12/27/22 08:01 69 18 95 12/26/22 22:05 70 O2 Del Method 12/27/22 08:31 Room Air 12/27/22 08:01 Room Air 12/26/22 22:05 Laboratory Results Reviewed CBC Reviewed PRP PG Care Time/CCT Total # of Minutes Spent Total Time Spent with Patient: Total time spent is greater than 50% in coordination of care (as documented) at patient's floor/unit and/or counseling patient: Coding Level of Care Code 26409 SUB INP/OBS CARE 2/35MIN Diagnoses Pneumonia J18.9 Atrial fibrillation with controlled ventricular rate I48.91 Dementia F03.90 Parkinson's disease with neurogenic orthostatic hypotension G90.3
--- NOTE | 2022-12-27 10:26 | Pharmacy Report ---
Pharmacy PK ABX Note - Date of Service December 27, 2022 - Assessment and Plan Assessment 82 year old M receiving Vancomycin, Cefepime and Flagyl for treatment of pulmonary infection. * PMHx significant for recent hospitalization and cystoscopy as well as dementia and afib. * Afebrile. Mild leukocytosis upon admission but improved today. Renal fxn stable. Procal and lactate negative. * MRSA nasal swab negative. Blood cultures pending. * Recommend discontinuation of vancomycin and metronidazole today. Plan Vancomycin * Loading dose: 1750 mg IV x 1 * Maintenance dose: 1000 mg IV every 12 hours * Regimen is predicted to achieve target AUC/SARINA of 400-600 mg/L.hr * Level will be ordered if therapy extends beyond 48 hours. Pharmacy will continue to follow and will adjust dose/frequency as necessary. Thank you. Pharmacy has transitioned to AUC monitoring for vancomycin. AUC/SARINA is the preferred PK/PD target and is associated with decreased risk of nephrotoxicity compared to traditional trough targets.
[2022-12-27] MEDS ORDERED: linaCLOtide 72 MCG CAPSULE PO ONE (14:30)
[2022-12-27] MEDS ORDERED: linaCLOtide 72 MCG CAPSULE PO SCH (14:30)
[2022-12-27] MEDS: DIGOXIN 0.25 MG TAB PO SCH (17:30)
[2022-12-27] MEDS: clonazePAM 1 MG TAB PO SCH (20:17)
[2022-12-27] MEDS: DONEPEZIL HCL 10 MG TAB PO SCH (20:18)
[2022-12-27] MEDS: MELATONIN 3 MG TAB PO SCH (20:18)
[2022-12-27] MEDS: POTASSIUM CHLORIDE 20 MEQ/15 ML UDC PO SCH (20:19)
--- NOTE | 2022-12-27 22:27 | Electrocardiogram Report ---
Test Reason : Blood Pressure : / mmHG Vent. Rate : 078 BPM Atrial Rate : 091 BPM P-R Int : 000 ms QRS Dur : 092 ms QT Int : 392 ms P-R-T Axes : 000 015 027 degrees QTc Int : 446 ms Poor data quality, interpretation may be adversely affected Atrial fibrillation Abnormal ECG When compared with ECG of 10-DEC-2022 05:21, Premature ventricular complexes are no longer Present Confirmed by Sánchez Jaimes ([id number]) on 12/27/2022 10:27:09 PM Referred By: ED Confirmed By:Sánchez Jaimes
[2022-12-28] MEDS: LEVOTHYROXINE SODIUM 75 MCG TABLET PO SCH (06:22)
[2022-12-28] MEDS: CEFEPIME 2,000 MG in SYRINGE 0 ML IV SCH ×3 (06:22→21:33)
[2022-12-28 06:48] LABS: BUN Creatinine Ratio 27.9 (10-20); Calcium 8.5 mg/dl (8.6-10.3); Creatinine Clr Calc Pharmacy 95.1 ml/min; Est GFR (African American) 104.5 ml/min; Est GFR (Non-African American) 90.2 ml/min; Magnesium 1.9 mg/dl (1.7-2.4); Potassium 3.2 mmol/L (3.5-5.1)
[2022-12-28] MEDS: ALBUT/IPRATROP 3MG/0.5MG NEB 3 ML VIAL NEB SCH ×4 (08:28→20:31)
[2022-12-28] MEDS: MIDODRINE HCL 2.5 MG TAB PO SCH ×2 (08:58→13:14)
[2022-12-28] MEDS: POTASSIUM CHLORIDE 20 MEQ/15 ML UDC PO SCH ×4 (08:59→20:24)
[2022-12-28] MEDS: SENNA 8.6 MG TAB PO SCH (08:59)
[2022-12-28] MEDS: linaCLOtide 72 MCG CAPSULE PO SCH (08:59)
[2022-12-28] MEDS: ATORVASTATIN 20 MG TAB PO SCH (08:59)
[2022-12-28] MEDS: guaiFENesin 600 MG TABCR PO SCH ×2 (09:00→20:23)
[2022-12-28] MEDS: CHOLECALCIFEROL 1,000 UNITS 25 MCG TAB PO SCH ×3 (09:01→20:22)
[2022-12-28] MEDS: CARBIDOPA/LEVODOPA 25-250 1 EA TAB PO SCH ×4 (09:01→20:22)
[2022-12-28] MEDS: APIXABAN 5 MG TABLET PO SCH ×2 (09:01→20:21)
[2022-12-28] MEDS: VENLAFAXINE HCL XR 37.5 MG CAPXR PO SCH (09:02)
[2022-12-28] MEDS: FLUDROCORTISONE ACETATE 0.1 MG TAB PO SCH (09:07)
--- NOTE | 2022-12-28 14:43 | Hospitalist Progress Note ---
Date of Service December 28, 2022 Assessment & Plan (1) Pneumonia: Plan: Left-sided pneumonia with acute hypoxic respiratory failure and metabolic encephalopathy secondary Acute/improving resolving - concern for gram negative or aspiration pneumonia - Cefepime and discontinue vancomycin with negative MRSA screen - Duonebs QIDR and q2 prn - Mucinex 600mg BID - Blood cultures negative today - previous video swallow 12/17 without aspiration - Given parkinson's, re consult [employer] discussion would not pursue additional swallowing testing of this is situational likely postoperative (2) Atrial fibrillation with controlled ventricular rate: Plan: AFib/History of HFpEF/HLD Chronic/stable - one dose of Lasix 20mg IV x1 - Continue Eliquis, Digoxin remains a good rate control - Continue statin therapy Patient persistently hypokalemic this continue to be repleted (3) Dementia: Plan: Chronic/stable - Baseline A&O x3 per , can engage in conversation, etc. - Continue Aricept, Melatonin, and Klonopin (4) Parkinson's disease with neurogenic orthostatic hypotension: Plan: Chronic/stable - No longer ambulates - Continue Sinemet -Due to elevated blood pressure we will now hold Flornief and Midodrine Plan Eliquis will provide adequate DVT ppx. Admission and Anticipated Discharge Date Admission Date: December 26, 2022 Subjective pt is awake and alert, he is eating lunch, no particular coughing but is still weakened, BP has been up necessitating holding midodrine and florinef Physical Exam Physical Exam: Patient awake and oriented x2 Card exam is regular with a systolic murmur Lungs have bilateral basilar rales left greater than right, persistent Patient has neurological changes consistent with his parkinsonism Results & Data Results & Data Vital Signs (Past 12 Hours) Vital Signs Temp Pulse Resp BP Pulse Ox O2 Del Method 12/28/22 14:11 97.3 F L 73 19 160/78 H 95 Room Air 12/28/22 12:44 135/68 12/28/22 11:26 60 18 97 Room Air 12/28/22 08:44 154/70 H 12/28/22 08:28 80 18 95 Room Air 12/28/22 07:15 Room Air 12/28/22 07:17 97.9 F 67 17 145/75 H 92 Room Air Laboratory Results Reviewed PRP Reviewed magnesium PG Care Time/CCT Total # of Minutes Spent Total Time Spent with Patient: Total time spent is greater than 50% in coordination of care (as documented) at patient's floor/unit and/or counseling patient: Coding Level of Care Code 54646 SUB INP/OBS CARE 235MIN Diagnoses Pneumonia J18.9 Atrial fibrillation with controlled ventricular rate I48.91 Dementia F03.90 Parkinson's disease with neurogenic orthostatic hypotension G90.3
[2022-12-28] MEDS: DIGOXIN 0.25 MG TAB PO SCH (17:14)
[2022-12-28] MEDS: MELATONIN 3 MG TAB PO SCH (20:23)
[2022-12-28] MEDS: DONEPEZIL HCL 10 MG TAB PO SCH (20:23)
[2022-12-28] MEDS: clonazePAM 1 MG TAB PO SCH (20:23)
[2022-12-29] MEDS: CEFEPIME 2,000 MG in SYRINGE 0 ML IV SCH ×3 (06:08→22:09)
[2022-12-29] MEDS: LEVOTHYROXINE SODIUM 75 MCG TABLET PO SCH (06:08)
[2022-12-29 06:40] LABS: BUN Creatinine Ratio 19.4 (10-20); Calcium 8.9 mg/dl (8.6-10.3); Creatinine Clr Calc Pharmacy 96.5 ml/min; Est GFR (African American) 105.2 ml/min; Est GFR (Non-African American) 90.8 ml/min; Magnesium 1.7 mg/dl (1.7-2.4); Potassium 3.9 mmol/L (3.5-5.1)
[2022-12-29] MEDS: ALBUT/IPRATROP 3MG/0.5MG NEB 3 ML VIAL NEB SCH (08:19)
[2022-12-29] MEDS: ATORVASTATIN 20 MG TAB PO SCH (09:02)
[2022-12-29] MEDS: POTASSIUM CHLORIDE 20 MEQ/15 ML UDC PO SCH (09:02)
[2022-12-29] MEDS: VENLAFAXINE HCL XR 37.5 MG CAPXR PO SCH (09:03)
[2022-12-29] MEDS: CARBIDOPA/LEVODOPA 25-250 1 EA TAB PO SCH ×4 (09:03→20:49)
[2022-12-29] MEDS: APIXABAN 5 MG TABLET PO SCH ×2 (09:03→20:48)
[2022-12-29] MEDS: SENNA 8.6 MG TAB PO SCH (09:03)
[2022-12-29] MEDS: CHOLECALCIFEROL 1,000 UNITS 25 MCG TAB PO SCH ×3 (09:04→20:49)
[2022-12-29] MEDS: guaiFENesin 600 MG TABCR PO SCH ×2 (09:04→20:51)
[2022-12-29] MEDS ORDERED: bisacodyL 10 MG SUPP PR STA (13:46)
[2022-12-29] MEDS ORDERED: LAVAGE SOLUTION 4000ML PO SCH (16:30)
--- NOTE | 2022-12-29 16:30 | Hospitalist Progress Note ---
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 - Continue Aricept, Melatonin, and Klonopin (4) Parkinson's disease with neurogenic orthostatic hypotension: Plan: Chronic/stable - No longer ambulates - Continue Sinemet -Due to elevated blood pressure we will continue to hold Flornief and Midodrine (5) Constipation: Plan: Patient has been constipated for the last few days. Attempted to collect suppository without relief. Will not use oral agents to try to promote bowel movements and hopefully the patient relieved of his constipation Plan Eliquis will provide adequate DVT ppx. Admission and Anticipated Discharge Date Admission Date: December 26, 2022 Subjective pt is awake and alert, he is eating lunch, no particular coughing looks much improved in concerned he has not had a bowel movement for days,, attempted suppository without results , BP has been up necessitating holding midodrine and florinef Physical Exam Physical Exam: Patient awake and oriented x2 Card exam is regular with a systolic murmur Lungs have bilateral basilar rales left greater than right, persistent Patient has neurological changes consistent with his parkinsonism Results & Data Results & Data Vital Signs (Past 12 Hours) Vital Signs Temp Pulse Resp BP BP Pulse Ox O2 Del Method 12/29/22 14:44 98.1 F 84 19 166/74 H 95 Room Air 12/29/22 08:30 Room Air 12/29/22 08:20 63 18 93 Room Air 12/29/22 07:16 97.7 F 73 15 174/90 H 94 Room Air PG Care Time/CCT Total # of Minutes Spent Total Time Spent with Patient: Total time spent is greater than 50% in coordination of care (as documented) at patient's floor/unit and/or counseling patient: Coding Level of Care Code 65728 SUB INP/OBS CARE 2/35MIN Diagnoses Pneumonia J18.9 Atrial fibrillation with controlled ventricular rate I48.91 Dementia F03.90 Parkinson's disease with neurogenic orthostatic hypotension G90.3 Constipation K59.00 Constipation type: unspecified constipation type (5) Constipation Constipation type: unspecified constipation type Qualified Code(s): K59.00 - Constipation, unspecified
[2022-12-29] MEDS: DIGOXIN 0.25 MG TAB PO SCH (17:23)
[2022-12-29] MEDS: POLYETHYLENE (MIRALAX) 17 GM PACK PO SCH ×2 (18:33→20:47)
--- NOTE | 2022-12-29 20:00 | XRay Report ---
ABDOMEN 2 VIEWS CLINICAL HISTORY: Constipation. FINDINGS: Supine and erect portable abdominal radiographs are correlated with abdominal CT dated 12/10. Enteric contrast is noted in the rectosigmoid. There is mild gaseous distention of the small b owel and colon with no radiographic evidence of high-grade obstruction. There is mild to moderate col onic fecal retention. No evidence of intraperitoneal free air is C. There are no abnormal abdominal c alcifications. The skeletal structures are osteopenic and appear intact. There is a left pleural effu emely and left basilar consolidation. IMPRESSION: 1. Cpao-ah-aznrbotg colonic fecal retention. 2. There is mild gaseous distention of the small bowel and colon without radiographic evidence of hig h-grade obstruction. 3. Left pleural effusion with left basilar consolidation. Electronically signed by: Edi Wood M.D. 12/29/2022 7:58 PM
[2022-12-29] MEDS: clonazePAM 1 MG TAB PO SCH (20:50)
[2022-12-29] MEDS: DONEPEZIL HCL 10 MG TAB PO SCH (20:50)
[2022-12-29] MEDS: MELATONIN 3 MG TAB PO SCH (20:51)
[2022-12-30] MEDS: LEVOTHYROXINE SODIUM 75 MCG TABLET PO SCH (06:30)
[2022-12-30] MEDS: CEFEPIME 2,000 MG in SYRINGE 0 ML IV SCH ×3 (06:30→22:19)
[2022-12-30] MEDS: CHOLECALCIFEROL 1,000 UNITS 25 MCG TAB PO SCH ×3 (09:55→22:20)
[2022-12-30] MEDS: CARBIDOPA/LEVODOPA 25-250 1 EA TAB PO SCH ×4 (09:55→22:19)
[2022-12-30] MEDS: guaiFENesin 600 MG TABCR PO SCH ×2 (09:55→22:19)
[2022-12-30] MEDS: VENLAFAXINE HCL XR 37.5 MG CAPXR PO SCH (09:55)
[2022-12-30] MEDS: linaCLOtide 72 MCG CAPSULE PO SCH (09:55)
[2022-12-30] MEDS: APIXABAN 5 MG TABLET PO SCH ×2 (09:55→22:20)
[2022-12-30] MEDS: SENNA 8.6 MG TAB PO SCH (09:55)
[2022-12-30] MEDS: ATORVASTATIN 20 MG TAB PO SCH (09:55)
[2022-12-30 09:58] LABS: BUN Creatinine Ratio 14.9 (10-20); Calcium 9.1 mg/dl (8.6-10.3); Creatinine Clr Calc Pharmacy 74.3 ml/min; Est GFR (African American) 94.5 ml/min; Est GFR (Non-African American) 81.5 ml/min; Magnesium 1.9 mg/dl (1.7-2.4); Potassium 3.8 mmol/L (3.5-5.1)
[2022-12-30] MEDS: ALBUT/IPRATROP 3MG/0.5MG NEB 3 ML VIAL NEB PRN (12:15)
--- NOTE | 2022-12-30 14:10 | Hospitalist Progress Note ---
Date of Service December 30, 2022 Assessment & Plan (1) Pneumonia: Plan: Left-sided pneumonia with acute hypoxic respiratory failure and metabolic encephalopathy secondary Acute/improving resolving, minor setback 12/30 could be from disrupted sleep overnight with cathartic/bowel movement recheck CXR - concern for gram negative or aspiration pneumonia - Cefepime and discontinued vancomycin with negative MRSA screen - Duonebs q2 prn - Mucinex 600mg BID - Blood cultures negative urine with 20,000 sean not albicans - previous video swallow 12/17 without aspiration - Given parkinson's, re consult NEUROPHYSIOLOGY TECH discussion would not pursue additional swallowing testing of this is situational likely postoperative (2) Atrial fibrillation with controlled ventricular rate: Plan: AFib/History of HFpEF/HLD Chronic/stable - one dose of Lasix 20mg IV x1 - Continue Eliquis, Digoxin remains a good rate control - Continue statin therapy Patient persistently hypokalemic this continue to be repleted (3) Dementia: Plan: Chronic/stable - Baseline A&O x3 per , can engage in conversation, etc. - Continue Aricept, Melatonin, and Klonopin (4) Parkinson's disease with neurogenic orthostatic hypotension: Plan: Chronic/stable - No longer ambulates - Continue Sinemet -Due to elevated blood pressure we will continue to hold Flornief and Midodrine (5) Constipation: Plan: Patient has been constipated for the last few days. successful relief with miralax Plan Eliquis will provide adequate DVT ppx. Admission and Anticipated Discharge Date Admission Date: December 26, 2022 Subjective pt is not quite himself today , lethargic and confused, trying to blame it on just waking up no urine infection low colony yeast, will recheck a CXR to determine if pneumonia worse but does not sound like that on exam Physical Exam Physical Exam: Patient awake but lethargic oriented x2 Card exam is regular with a systolic murmur Lungs have bilateral basilar rales left greater than right, persistent Patient is sleepy but non focal Results & Data Results & Data Vital Signs (Past 12 Hours) Vital Signs Temp Pulse Resp BP Pulse Ox O2 Del Method 12/30/22 07:20 97.9 F 86 16 138/75 94 Room Air Laboratory Results reviewed prp reviewed magnesium PG Care Time/CCT Total # of Minutes Spent Total Time Spent with Patient: Total time spent is greater than 50% in coordination of care (as documented) at patient's floor/unit and/or counseling patient: Coding Level of Care Code 83125 SUB INP/OBS CARE MIN Diagnoses Pneumonia J18.9 Atrial fibrillation with controlled ventricular rate I48.91 Dementia F03.90 Parkinson's disease with neurogenic orthostatic hypotension G90.3 Constipation K59.00 Constipation type: unspecified constipation type (5) Constipation Constipation type: unspecified constipation type Qualified Code(s): K59.00 - Constipation, unspecified
--- NOTE | 2022-12-30 15:11 | XRay Report ---
XR chest 1V portable HISTORY: 82 years-old Male eval pneumonia acute shortness of breath COMPARISON: Chest radiograph and chest CT 12/26/2022 TECHNIQUE: AP view of the chest FINDINGS: Cardiac silhouette is enlarged. Atherosclerosis of the aorta. No pneumothorax. Left greater than righ t pleural effusions with left basilar predominant consolidation is again noted. There is mildly impro jess aeration of the left midlung. There is decreased pulmonary vascular congestion. IMPRESSION: 1. Cardiomegaly with mildly improved pulmonary edema. 2. Layering pleural effusions with left basilar predominant consolidation redemonstrated. 3. Mildly improved aeration of the left midlung. ACT 112: Negative or not required by law. The above report was generated using voice recognition software. It may contain grammatical, syntax o r spelling errors. Electronically signed by: Nilton Ryan M.D. 12/30/2022 3:10 PM
[2022-12-30] MEDS: DIGOXIN 0.25 MG TAB PO SCH (18:25)
[2022-12-30] MEDS: MELATONIN 3 MG TAB PO SCH (22:19)
[2022-12-30] MEDS: DONEPEZIL HCL 10 MG TAB PO SCH (22:20)
[2022-12-30] MEDS: clonazePAM 1 MG TAB PO SCH (22:22)
[2022-12-31] MEDS: LEVOTHYROXINE SODIUM 75 MCG TABLET PO SCH (05:29)
[2022-12-31] MEDS: CEFEPIME 2,000 MG in SYRINGE 0 ML IV SCH ×3 (05:57→22:18)
[2022-12-31 07:21] LABS: BUN Creatinine Ratio 18.3 (10-20); Calcium 8.9 mg/dl (8.6-10.3); Creatinine Clr Calc Pharmacy 78.9 ml/min; Est GFR (African American) 96.8 ml/min; Est GFR (Non-African American) 83.5 ml/min; Potassium 3.6 mmol/L (3.5-5.1)
[2022-12-31] MEDS: ALBUT/IPRATROP 3MG/0.5MG NEB 3 ML VIAL NEB PRN ×2 (07:31→20:36)
[2022-12-31] MEDS: APIXABAN 5 MG TABLET PO SCH (08:46)
[2022-12-31] MEDS: SENNA 8.6 MG TAB PO SCH (08:46)
[2022-12-31] MEDS: CHOLECALCIFEROL 1,000 UNITS 25 MCG TAB PO SCH ×3 (08:46→22:15)
[2022-12-31] MEDS: VENLAFAXINE HCL XR 37.5 MG CAPXR PO SCH (08:46)
[2022-12-31] MEDS: ATORVASTATIN 20 MG TAB PO SCH (08:46)
[2022-12-31] MEDS: guaiFENesin 600 MG TABCR PO SCH ×2 (08:46→22:15)
[2022-12-31] MEDS: CARBIDOPA/LEVODOPA 25-250 1 EA TAB PO SCH ×4 (10:18→22:14)
[2022-12-31] MEDS: DIGOXIN 0.25 MG TAB PO SCH (17:50)
--- NOTE | 2022-12-31 19:18 | Hospitalist Progress Note ---
Date of Service December 31, 2022 Assessment & Plan (1) Pneumonia: Plan: Left-sided pneumonia with acute hypoxic respiratory failure and metabolic encephalopathy secondary Acute/improving resolving, Patient not quite bouncing back as much as we had hoped. Patient presented with effusion difficult to ascertain whether this could be a parapneumonic infectious infusion. He have to have thoracentesis. 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 - Continue Aricept, Melatonin, and Klonopin (4) Parkinson's disease with neurogenic orthostatic hypotension: Plan: Chronic/stable - No longer ambulates - Continue Sinemet -Due to elevated blood pressure we will continue to hold Flornief and Midodrine (5) Constipation: Plan: Patient has been constipated for the last few days. successful relief with miralax Admission and Anticipated Discharge Date Admission Date: December 26, 2022 Subjective Patient continues to be slightly less energetic than I had experienced him earlier in the stay. is concerned there may be an occult worsening of his infection. CT scan chest is reordered. In a.m. we will check CRP procalcitonin and regular serology. Involve pulmonary expertise to see if thoracentesis is required for parapneumonic effusion rule out Physical Exam Physical Exam: Patient awake but lethargic oriented x2 Card exam is regular with a systolic murmur Lungs have bilateral basilar rales left greater than right, persistent Patient is sleepy but non focal Results & Data Results & Data Vital Signs (Past 12 Hours) Vital Signs Temp Pulse Pulse Resp BP Pulse Ox O2 Del Method 12/31/22 17:50 78 12/31/22 15:45 97.9 F 77 18 144/73 H 95 Room Air 12/31/22 07:49 Room Air, Nebulizer 12/31/22 07:32 66 18 90 Room Air 12/31/22 07:21 98.2 F 77 16 153/72 H 93 Room Air PG Care Time/CCT Total # of Minutes Spent Total Time Spent with Patient: Total time spent is greater than 50% in coordination of care (as documented) at patient's floor/unit and/or counseling patient: Coding Level of Care Code 08538 SUB INP/OBS CARE 3/50MIN Diagnoses Pneumonia J18.9 Atrial fibrillation with controlled ventricular rate I48.91 Dementia F03.90 Parkinson's disease with neurogenic orthostatic hypotension G90.3 Constipation K59.00 Constipation type: unspecified constipation type (5) Constipation Constipation type: unspecified constipation type Qualified Code(s): K59.00 - Constipation, unspecified
--- NOTE | 2022-12-31 20:45 | CT Scan Report ---
CT OF THE CHEST WITHOUT IV CONTRAST CLINICAL HISTORY: Evaluate for parapneumonic effusion. COMPARISON STUDY: Chest CT December 26, 2022 and chest radiograph December 30, 2022. CT DOSE: 562.09 mGy.cm TECHNIQUE: Axial images of the chest were obtained without IV contrast. Images were reviewed in the axial, sagittal, and coronal planes. IV contrast was not administered for this examination. Automat ed exposure control was utilized for the study. A dose lowering technique was utilized adhering to [facility] principles of ALARA. FINDINGS: Moderate cardiomegaly is noted. A small to moderate pericardial effusion has slightly incr eased in size. Small right and eldlu-st-lphicchu left pleural effusions are also similar to prior CT. There is no pneumothorax. Left lung airspace opacities have significantly improved since CT of December 26, 2022. There is residual left lower lobe airspace opacity with volume loss. Ground glass opacitie s within the remainder of the lungs are noted. This may reflect mild edema. Mild secretions within th e proximal left mainstem bronchus are noted. Secretions within the left mainstem bronchus have decrea sed since prior exam. No acute fractures within the bony thorax are present. Visualized portions of [facility] upper abdomen are unremarkable. IMPRESSION: 1. Small to moderate left and small right pleural effusions which are similar to CT of December 26, 2022 . 2. Significant improvement in left lung airspace opacities since prior CT. Residual left lower lobe a irspace opacity with volume loss could reflect resolving pneumonia or atelectasis. 3. Slight increase in size of a small to moderate pericardial effusion. Moderate cardiomegaly. 4. Groundglass opacities within lungs which may reflect mild pulmonary edema. ACT 112: Negative or not required by law. Electronically signed by: Dax Pozo M.D. 12/31/2022 8:43 PM
[2022-12-31] MEDS: DONEPEZIL HCL 10 MG TAB PO SCH (22:13)
[2022-12-31] MEDS: MELATONIN 3 MG TAB PO SCH (22:14)
[2022-12-31] MEDS: clonazePAM 1 MG TAB PO SCH (22:18)
[2023-01-01] MEDS: HYDROCORTISONE 1% CRM 30 GM TUBE EXT PRN ×2 (02:16→15:23)
[2023-01-01] MEDS: LEVOTHYROXINE SODIUM 75 MCG TABLET PO SCH (05:36)
[2023-01-01] MEDS: CEFEPIME 2,000 MG in SYRINGE 0 ML IV SCH ×2 (06:17→14:01)
[2023-01-01] MEDS: ATORVASTATIN 20 MG TAB PO SCH (08:21)
[2023-01-01] MEDS: CHOLECALCIFEROL 1,000 UNITS 25 MCG TAB PO SCH ×3 (08:21→22:58)
[2023-01-01] MEDS: linaCLOtide 72 MCG CAPSULE PO SCH (08:21)
[2023-01-01] MEDS: VENLAFAXINE HCL XR 37.5 MG CAPXR PO SCH (08:21)
[2023-01-01] MEDS: CARBIDOPA/LEVODOPA 25-250 1 EA TAB PO SCH ×4 (08:21→23:00)
[2023-01-01] MEDS: SENNA 8.6 MG TAB PO SCH (08:21)
[2023-01-01] MEDS: guaiFENesin 600 MG TABCR PO SCH ×2 (08:21→22:58)
[2023-01-01 08:25] LABS: Basophils # (auto) 0.04 K/uL (0-0.2); Basophils % (auto) 0.6 %; Eosinophils # (auto) 0.31 K/uL (0-0.50); Eosinophils % (auto) 4.7 %; Hematocrit (blood only) 32.1 % (42.0-52.0); Hemoglobin 10.8 g/dl (14.0-18.0); Immature Granulocytes # (auto) 0.01 K/uL (0.01-0.20); Immature Granulocytes % (auto) 0.2 %; Lymphocytes # (auto) 0.92 K/uL (1.2-3.4); Lymphocytes % (auto) 14.1 %; Mean Corpuscular Hemoglobin 30.4 pg (25.0-34.0); Mean Corpuscular Hgb Conc 33.6 g/dL (32.0-36.0); Mean Corpuscular Volume 90.4 fL (80.0-100.0); Mean Platelet Volume 10.8 fL (9.4-12.4); Monocytes # (auto) 0.67 K/uL (0.11-0.59); Monocytes % (auto) 10.2 %; Neutrophils # (auto) 4.59 K/uL (1.40-6.50); Neutrophils % (auto) 70.2 %; Platelet Count 196 K/uL (130-400); RDW Coefficient of Variation 13.4 % (11.5-14.5); RDW Standard Deviation 44.7 fL (36.4-46.3); Red Blood Count 3.55 M/uL (4.70-6.10); White Blood Count 6.54 K/ul (4.8-10.8)
[2023-01-01 08:54] LABS: BUN Creatinine Ratio 17.5 (10-20); C Reactive Protein 4.25 mg/dl (0-0.5); Calcium 9.1 mg/dl (8.6-10.3); Creatinine Clr Calc Pharmacy 80.8 ml/min; Est GFR (African American) 97.8 ml/min; Est GFR (Non-African American) 84.4 ml/min; Potassium 3.6 mmol/L (3.5-5.1)
[2023-01-01] MEDS: DIGOXIN 0.25 MG TAB PO SCH (17:47)
--- NOTE | 2023-01-01 19:51 | Hospitalist Progress Note ---
Date of Service January 01, 2023 Assessment & Plan (1) Pneumonia: Plan: Left-sided pneumonia with acute hypoxic respiratory failure and metabolic encephalopathy secondary Acute/improving resolving, is not satisfied with the degree of improvement of encephalopathy she feels that he is not back to his baseline this may be based on situational sleep disturbance in place Parkinson's disease Patient not quite bouncing back as much as we had hoped. Pulmonary medicine reviewed CT scan does not feel thoracentesis is warranted in this patient - concern for gram negative or aspiration pneumonia - Cefepime and discontinued vancomycin with negative MRSA screen transition to oral Augmentin in the evening of 01/01/2023 - Duonebs q2 prn - Mucinex 600mg BID - Blood cultures negative urine with 20,000 sean not albicans - previous video swallow 12/17 without aspiration - Given parkinson's, re consult LICENSED PHYSICAL THERAPY ASSISTANT discussion would not pursue additional swallowing testing of this is situational likely postoperative (2) Atrial fibrillation with controlled ventricular rate: Plan: AFib/History of HFpEF/HLD Chronic/stable - one dose of Lasix 20mg IV x1 - Continue Eliquis, Digoxin remains a good rate control - Continue statin therapy Patient persistently hypokalemic this continue to be repleted (3) Dementia: Plan: Chronic/stable - Baseline A&O x3 per , can engage in conversation, etc. - Continue Aricept, Melatonin, and Klonopin (4) Parkinson's disease with neurogenic orthostatic hypotension: Plan: Chronic/stable - No longer ambulates - Continue Sinemet -Due to elevated blood pressure we will continue to hold Flornief and Midodrine (5) Constipation: Plan: Patient has been constipated for the last few days. successful relief with miralax Admission and Anticipated Discharge Date Admission Date: December 26, 2022 Subjective Patient continues to be slightly less energetic than I had experienced him earlier in the stay. is concerned there may be an occult worsening of his mental status he seems to wax and wane. Repeat CT chest did not reveal any worsening of his pulmonary process in fact some minor improvement Physical Exam Physical Exam: Patient awake but lethargic oriented x2 Card exam is regular with a systolic murmur Lungs have bilateral basilar rales left greater than right, persistent Patient is sleepy but non focal Results & Data Results & Data Vital Signs (Past 12 Hours) Vital Signs Temp Pulse Pulse Resp BP Pulse Ox O2 Del Method 01/01/23 18:13 Room Air 01/01/23 17:47 83 01/01/23 17:46 83 01/01/23 15:07 97.9 F 74 18 162/89 H 95 Room Air 01/01/23 11:09 Room Air PG Care Time/CCT Total # of Minutes Spent Total Time Spent with Patient: Total time spent is greater than 50% in coordination of care (as documented) at patient's floor/unit and/or counseling patient: Coding Level of Care Code 27803 SUB INP/OBS CARE 2/35MIN Diagnoses Pneumonia J18.9 Atrial fibrillation with controlled ventricular rate I48.91 Dementia F03.90 Parkinson's disease with neurogenic orthostatic hypotension G90.3 Constipation K59.00 Constipation type: unspecified constipation type (5) Constipation Constipation type: unspecified constipation type Qualified Code(s): K59.00 - Constipation, unspecified
[2023-01-01] MEDS: clonazePAM 1 MG TAB PO SCH (22:57)
[2023-01-01] MEDS: DONEPEZIL HCL 10 MG TAB PO SCH (22:59)
[2023-01-01] MEDS: MELATONIN 3 MG TAB PO SCH (22:59)
[2023-01-02] MEDS: APIXABAN 5 MG TABLET PO SCH ×2 (00:19→09:17)
[2023-01-02] MEDS: LEVOTHYROXINE SODIUM 75 MCG TABLET PO SCH (06:19)
[2023-01-02] MEDS ORDERED: AMOXICILLIN/CLAVULANATE 875 MG TAB PO SCH (08:00)
[2023-01-02] MEDS: VENLAFAXINE HCL XR 37.5 MG CAPXR PO SCH (09:17)
[2023-01-02] MEDS: SENNA 8.6 MG TAB PO SCH (09:17)
[2023-01-02] MEDS: CARBIDOPA/LEVODOPA 25-250 1 EA TAB PO SCH ×2 (09:17→12:09)
[2023-01-02] MEDS: CHOLECALCIFEROL 1,000 UNITS 25 MCG TAB PO SCH ×2 (09:17→12:09)
[2023-01-02] MEDS: guaiFENesin 600 MG TABCR PO SCH (09:18)
[2023-01-02] MEDS: ATORVASTATIN 20 MG TAB PO SCH (09:18)
--- NOTE | 2023-01-02 14:00 | Discharge Summary ---
Date of Service January 02, 2023 Admission HPI Per Admitting Provider Andrew Barba is an 82 yo M with a pmhx of dementia, parkinson's disease, neurogenic orthostatic hypotension, and afib who was just recently hospitalized 12/10/22 through 12/17/22 for nephrolithiasis and grossly infected urine in addition to a/c HFpEF and afib with RVR. He was discharged in stable condition, followed up with urology and was hospitalized 12/24 through 12/25 for cystoscopy with left ureteronephroscopy, left retrograde pyelogram, and exchange of stent catheter on left. Following the procedure, the patient seemed more confused according to his . These concerns were raised to nursing but patient was ans wering the orientation questions appropriately. He was discharged home yesterday, complained to his of feeling more fatigued and went to bed early. When she went to check on him this morning, he seemed more lethargic than usual, confused, he had a fever of 101F and she felt that she could appreciate audible congestion and subsequently she transported him to the ER for evaluation. In the ER, he has a mildly elevated wbc count of 11.40 with left shift. Persistent infiltrates in the left lung are present on cxr in addition to evidence of pulmonary edema. He was given a dose of Cefepime as well as Vancomycin and referred to the hospitalists for admission. Principal Diagnosis aspiration pneumonia Discharge Exam Patient awake, oriented x2 Card exam is regular with a systolic murmur Lungs have bilateral basilar rales left greater than right Discharge Data Allergies Allergy/AdvReac Type Severity Reaction Status Date / Time No Known Allergies Allergy Verified 12/26/22 15:34 Consultations 12/26/22 14:53 ED Decision to Admit Stat Ordered Studies 12/26/22 16:27 CT chest diagnostic wo con Stat 12/31/22 16:25 CT chest diagnostic wo con Routine Hospital Course (1) Pneumonia: Left-sided pneumonia with acute hypoxic respiratory failure and metabolic encephalopathy secondary Acute/improving resolving, is not satisfied with the degree of improvement of encephalopathy she feels that he is not back to his baseline this may be based on situational sleep disturbance in place Parkinson's disease Patient not quite bouncing back as much as we had hoped. Pulmonary medicine reviewed CT scan does not feel thoracentesis is warranted in this patient - concern for gram negative or aspiration pneumonia - Cefepime and discontinued vancomycin with negative MRSA screen transition to oral Augmentin in the evening of 01/01/2023 - Duonebs q2 prn - Mucinex 600mg BID - Blood cultures negative urine with 20,000 sean not albicans - previous video swallow 12/17 without aspiration - Given parkinson's, re consult [employer] discussion would not pursue additional swallowing testing of this is situational likely postoperative Patient will be discharged on 01/02, will continue antibiotics to complete a 10 day course. Patient will be on augmentin BID for 3 more days. Placed speech eval. (2) Atrial fibrillation with controlled ventricular rate: AFib/History of HFpEF/HLD Chronic/stable - one dose of Lasix 20mg IV x1 - Continue Eliquis, Digoxin remains a good rate control - Continue statin therapy Patient persistently hypokalemic this continue to be repleted (3) Dementia: Chronic/stable - Baseline A&O x3 per , can engage in conversation, etc. - Continue Aricept, Melatonin, and Klonopin (4) Parkinson's disease with neurogenic orthostatic hypotension: Chronic/stable - No longer ambulates - Continue Sinemet -Due to elevated blood pressure we will continue to hold Flornief and Midodrine (5) Constipation: Patient has been constipated for the last few days. successful relief with miralax Total Time Total Time Spent Total Time Spent (In Minutes): 32 Discharge Plan Discharge Items Patient Disposition: Home - Self-Care Reason For Visit: PNEUMONIA Discharge Diagnosis: aspiration pneumonia Activity: Resume your previous activity Non-emergency contact: Primary Care Provider Call non-emergency contact if: your symptoms worsen Follow-up/Referrals: Philip Whitfield MD [Primary Care Provider] - (PATIENT WILL CONTACT PCP TO HAVE A HOSPITAL FOLLOW UP IN 7-10 DAYS AFTER DISCHARGE.) Diet: Regular Addtl Attending Provider Instructions: while you were in the hospital you did have higher blood pressure and so your blood pressure supporting medications were stopped, your blood pressure is also elevated on the day of discharge so we will recommend to stop these, however if you notice lower blood pressure with symptoms please start them back complete your antibiotics for pneumonia Addtl 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 Easy to Chew IDDSI 7, Thin Liquids IDDSI 0 a. Take one pill at a time with water or other beverage. b. Cue for throat clear and double swallows with all bites/ drinks c. Check for pocketing after intake 2. Reflux and aspiration precautions as listed (alt=alternate and HOB=head of bed) 3. Mouth Care (clean all surfaces of pts mouth, tongue, teeth, gums, pockets, cheeks) before any p.o. intake and before bed to reduce the amount of oral bacteria that can be aspirated in the saliva. The pt was seen in his room with family present during lunch of chicken, green beans, and orange juice. Pt's family member was sitting with him cuing him to use the safe swallow strategies recommended. The pt's wished for him to remain in the Minced and Moist diet for now with the possibility of him being advanced to the Easy to chew if desired. Pending Studies at Discharge: No Stand-Alone Forms: [facility], Smoking Cessation Medications and DC Order Prescriptions: New amoxicillin-pot clavulanate 875-125 mg Tablet 1 tab PO BIDM Qty: 6 0RF guaifenesin [Mucinex] 600 mg Tablet Extended Release 12hr 600 mg PO Q12 Qty: 10 0RF Continued phenazopyridine [Pyridium] 200 mg tablet 200 mg PO TID PRN (Reason: pain) Qty: 10 0RF cholecalciferol (vitamin D3) [Vitamin D3] 2,000 unit capsule 2,000 unit PO TID donepezil [Aricept] 10 mg tablet 10 mg PO HS atorvastatin [Lipitor] 20 mg tablet 20 mg PO QAM multivitamin [Daily Multi-Vitamin] Tablet 1 tab PO PM melatonin 10 mg Tablet 10 mg PO HS Eliquis 5 mg Tablet 5 mg PO BID Qty: 60 5RF carbidopa-levodopa 25-250 mg Tablet 1 tab PO QID digoxin 250 mcg (0.25 mg) tablet 250 mcg PO 1700 polyethylene glycol 3350 [Miralax] 17 gram/dose powder 8.5 gm PO QAM sennosides [Senokot] 8.6 mg Tablet 17.2 mg PO BID PRN (Reason: Constipation) venlafaxine 37.5 mg capsule,extended release 24hr 37.5 mg PO QAM hydrocortisone [Proctosol HC] 2.5 % cream with perineal applicator 1 applic EXT TID PRN (Reason: Hemorrhoids) ketoconazole 2 % cream 1 applic topical BID PRN (Reason: NEEDED) levothyroxine 75 mcg tablet 75 mcg PO DAILYBB Changed clonazepam 1 mg tablet 1 mg PO HS Qty: 45 0RF Discontinued midodrine 2.5 mg Tablet 2.5 mg PO TID Rx Instructions: take at 8am, 12noon, and 5pm. Do not take last dose of day after 6PM or within 4 hrs of bedtime. fludrocortisone 0.1 mg tablet 0.2 mg PO QAM Discharge Orders: Discharge Order (Routine); Ordered 01/02/23 Ordered By: Mayank Chin/Other Patient Handouts: Controlling High Blood Pressure, High Blood Pressure Risk Factors Admission Data Admit Date/Time: 12/26/22 16:16 Attending Provider: Mayank Casarez Admit Provider: Jhonny Jay Primary Care Provider: Philip Whitfield Other Providers: Jhonny Jay ; Rory Doe Other Interventions: Discharge Summary Assessment (RN) Last Done: 12/29/22 12:23 Coding Level of Care Code 28109 INP/OBS DISCH >30 MIN Diagnoses Pneumonia J18.9 Atrial fibrillation with controlled ventricular rate I48.91 Dementia F03.90 Parkinson's disease with neurogenic orthostatic hypotension G90.3 Constipation K59.00 Constipation type: unspecified constipation type
== END 2023-01-02 14:16 | disposition home or self-care (01) | DRG 177 ==
LOC: ED 12:06 → 3W 16:16 → SUATTDRO 16:16 → 3W 17:25

== ENCOUNTER 2024-02-16 14:27 | Inpatient (IN) ==
--- NOTE | 2024-02-16 14:34 | ED Triage Note ---
Date of Service February 16, 2024 Provider in Triage Author: Cori Lovell History of Present Illness This patient was briefly evaluated while in triage. An abbreviated physical exam was performed. This patient is a 83-year-old Male who presents to the ED for evaluation of low grade fever and fatigue. He has had a low grade fever. He has been sleeping for 16-17 hours per day for the past 5 days. He has not had a BM for 12 days. His blood pressure has been running high. Temps were around 100 yesterday morning but resolved. Physical Exam GENERAL: Non-toxic and in no acute distress. HEENT: Pupils equal. HEART: Regular rate and rhythm. LUNGS: Clear to auscultation. No accessory muscle use. NEURO: Alert and oriented. No obvious neurological deficits on quick neuro exam. Initial orders for labs and / or imaging were placed and patient was placed in the waiting area until a bed is available. Please see further documentation for the full ED course.
[2024-02-16 15:32] LABS: Basophils # (auto) 0.04 K/uL (0.00-0.20); Basophils % (auto) 0.7 %; Eosinophils # (auto) 0.18 K/uL (0.00-0.50); Eosinophils % (auto) 3.2 %; Hematocrit (blood only) 37.4 % (42.0-52.0); Hemoglobin 12.4 g/dl (14.0-18.0); Immature Granulocytes # (auto) 0.01 K/uL (0.01-0.20); Immature Granulocytes % (auto) 0.2 %; Lymphocytes # (auto) 0.96 K/uL (1.20-3.40); Lymphocytes % (auto) 17.3 %; Mean Corpuscular Hgb Conc 33.2 g/dL (32.0-36.0); Mean Corpuscular Volume 90.3 fL (80.0-100.0); Mean Platelet Volume 10.7 fL (9.4-12.4); Monocytes # (auto) 0.45 K/uL (0.11-0.59); Monocytes % (auto) 8.1 %; Neutrophils # (auto) 3.91 K/uL (1.40-6.50); Neutrophils % (auto) 70.5 %; Platelet Count 202 K/uL (130-400); RDW Coefficient of Variation 13.2 % (11.5-14.5); RDW Standard Deviation 43.5 fL (36.4-46.3); Red Blood Count 4.14 M/uL (4.70-6.10); White Blood Count 5.55 K/ul (4.8-10.8)
--- NOTE | 2024-02-16 15:42 | XRay Report ---
XR chest 1V not portable HISTORY: weakness COMPARISON: Chest 10/23/2023. FINDINGS: Slightly rotated study. No pneumothorax. The heart is mildly enlarged. There are low lung v olumes. Small bilateral pleural effusions most pronounced on the left. Left retrocardiac density has progressed in the interval. There is mild central pulmonary vascular congestion without overt edema. IMPRESSION: 1. Interval progression of the left retrocardiac density. This favors a pneumonia. However, one to 2 month chest x-ray follow-up recommended to ensure resolution. 2. Cardiomegaly with mild congestive change and small bilateral pleural effusions. ACT 112: Negative or not required by law. Electronically signed by: Micha Cloud M.D. 02/16/2024 3:41 PM
[2024-02-16 15:48] LABS: Alanine Aminotransferase 12 U/L (7-52); Albumin Globulin Ratio 1.2 (0.9-2); Albumin Level 3.8 gm/dl (3.4-5.0); Alkaline Phosphatase 86 U/L (34-104); Anion Gap 5 (3-11); Aspartate Aminotransferase 15 U/L (13-39); BUN Creatinine Ratio 16.3 (10-20); Bilirubin,Total 1.8 mg/dl (0.2-1.0); Blood Urea Nitrogen 13 mg/dl (6-23); Calcium 8.9 mg/dl (8.6-10.3); Carbon Dioxide 33 mmol/L (21-32); Chloride 102 mmol/L (98-107); Est GFR (African American) 97.1 ml/min; Est GFR (Non-African American) 83.8 ml/min; Globulin 3.2 gm/dl (2.5-4.0); Glucose 90 mg/dl (70-99(Fasting)); Magnesium 2.1 mg/dl (1.7-2.4); Potassium 3.9 mmol/L (3.5-5.1); Sodium 140 mmol/L (136-145)
[2024-02-16 16:09] LABS: Adenovirus PCR Not Detected (NotDetected); Bordetella parapertussis PCR Not Detected (NotDetected); Bordetella pertussis PCR Not Detected (NotDetected); Chlamydia pneumoniae PCR Not Detected (NotDetected); Coronavirus 229E PCR Not Detected (NotDetected); Coronavirus CoV-2 (COVID19)PCR Not Detected (NotDetected); Coronavirus HKU1 PCR Not Detected (NotDetected); Coronavirus NL63 PCR Not Detected (NotDetected); Coronavirus OC43PCR Not Detected (NotDetected); Human Metapneumovirus PCR Not Detected (NotDetected); Influenza A PCR Not Detected (NotDetected); Influenza B PCR Not Detected (NotDetected); Mycoplasma pneumoniae PCR Not Detected (NotDetected); Parainfluenza Virus 1 PCR Not Detected (NotDetected); Parainfluenza Virus 2 PCR Not Detected (NotDetected); Parainfluenza Virus 3 PCR Not Detected (NotDetected); Parainfluenza Virus 4 PCR Not Detected (NotDetected); Respiratory Syncytial VirusPCR Not Detected (NotDetected); Rhinovirus/Enterovirus PCR Not Detected (NotDetected)
[2024-02-16] MEDS: SODIUM CHLORIDE 0.9% 1,000 ML IV SCH (17:11)
[2024-02-16 17:47] LABS: Appearance Urine Clear (Clear); Bilirubin Urine Negative (Negative); Blood Urine Negative (Negative); Color Urine Yellow; Glucose Urine UA Negative (Negative); Ketones Urine 1+ (Negative); Leukocyte Esterase Urine Negative (Negative); Nitrite Urine Negative (Negative); Protein Urine Negative (Negative); Specific Gravity Urine 1.014 (1.000-1.030); Urobilinogen Urine Negative (Negative)
[2024-02-16] MEDS: OPTIRAY 320 100ml IV ONE (17:49)
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
--- NOTE | 2024-02-16 18:02 | CT Scan Report ---
CT head/brain wo con CLINICAL HISTORY: htn, ams Technique: Contiguous axial CT images of the head were acquired from the base of the skull to the gildardo jessica without intravenous contrast administration. Images were viewed in brain, subdural and bone [facility] ws. Automated dose lowering techniques and/or adjustment according to patient size were utilized for this exam. Comparison: Comparison is made to CT head 10/23/2023 Findings: Areas of decreased attenuation are present in the periventricular and subcortical white matter bilate rally consistent with small vessel ischemic disease. Generalized cerebral atrophy with commensurate e nlargement of the ventricles, sulci, and cisterns is also present. There is no acute intracranial hem orrhage or evidence of acute territorial infarction. No shift of the midline structures, mass effect, or extra-axial abnormalities are shown. Atherosclerotic calcifications are present in the intracran ial segments of the internal carotid arteries. Imaged portions of the paranasal sinuses and mastoid air cells are clear. The orbits appear normal. There are no acute fractures of the calvaria or scalp swelling. Impression: No acute intracranial hemorrhage, no evidence of acute territorial infarction or other acute intracra nial disease process. ACT 112: Negative or not required by law. Electronically signed by: Philip Hinton M.D. 02/16/2024 6:01 PM
--- NOTE | 2024-02-16 18:36 | CT Scan Report ---
CT abd pelvis IV con only CLINICAL HISTORY: constipation TECHNIQUE: Helical axial images of the abdomen and pelvis were obtained and displayed. Automated dose lowering techniques and/or adjustment according to patient size were utilized for this exam. This e xam was performed with intravenous contrast. CT DOSE: 1533.83 mGy.cm COMPARISON: Comparison is made to CT abdomen pelvis 12/10/2022 FINDINGS: Lower chest: Small bilateral pleural effusions are seen with underlying atelectasis. Cardiomegaly is seen. Liver: Unremarkable. No focal lesions are seen. Gallbladder and biliary tree: No calcified gallstones. Normal caliber wall. No intra- or extrahepatic biliary ductal dilation. Pancreas: Unremarkable, no focal lesions. Spleen: Unremarkable. Adrenals: Unremarkable. Kidneys and ureters: Subcentimeter hypodensities are too small to characterize. A right renal cyst is seen. Bladder: Diffuse homogeneous wall thickening is seen. Reproductive organs: Unremarkable. Bowel: Prominent rectal stool burden is seen with possible inspissation. No significant wall thickeni ng is seen to suggest stercoral colitis. There is likely a small hiatal hernia. Lymph nodes Retroperitoneal: Unremarkable. Pelvic: Unremarkable. Mesenteric: Unremarkable. Peritoneum: Normal. Vessels: Atherosclerotic calcifications are seen. Abdominal wall: Unremarkable. Bones: Degenerative changes in the visualized spine. IMPRESSION: Prominent rectal stool burden with possible inspissation. No definite evidence of stercoral colitis. Otherwise no acute abnormalities are seen. ACT 112: Negative or not required by law. Electronically signed by: Philip Hinton M.D. 02/16/2024 6:34 PM
[2024-02-16] MEDS: hydrALAZINE HCL 20 MG/ML VIAL IV ONE (20:20)
[2024-02-16] MEDS: cefTRIAXone SODIUM 2,000 MG/50 ML BAG IV STA (20:21)
[2024-02-16] MEDS: DOXYCYCLINE HYCLATE 100 MG CAP PO STA (20:23)
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
[2024-02-16] MEDS: clonazePAM 1 MG TAB PO STA (22:18)
[2024-02-16] MEDS: SENNA 8.6 MG TAB PO STA (22:18)
[2024-02-16] MEDS: CARBIDOPA/LEVODOPA 25-250 1 EA TAB PO STA (22:27)
[2024-02-16] MEDS: APIXABAN 5 MG TABLET PO STA (22:27)
[2024-02-16] MEDS ORDERED: ACETAMINOPHEN 325 MG TAB PO PRN (23:55)
[2024-02-16] MEDS ORDERED: ONDANSETRON INJ 2 MG/ML 2 ML VIAL IV PRN (23:55)
[2024-02-17] MEDS: LACTATED RINGER'S 1,000 ML IV SCH (00:10)
[2024-02-17] MEDS: MELATONIN 3 MG TAB PO PRN (00:24)
[2024-02-17] MEDS: bisacodyL 10 MG SUPP PR STA (00:24)
[2024-02-17 00:27] LABS: Phosphorus 3.5 mg/dl (2.5-4.9)
--- OUTSIDE RECORDS SUMMARY | 2024-02-17 02:47 | External Medical Summary | Summary of Care ---
Author Name Unknown Organization [facility] Address [address] [place] [address] Phone [phone] Care Team Providers Care Fluid Dynamicist Name Role Phone Jon Bal DO Primary Care Provider [phone] Encounter Details Date Type Department Care Team (Late st Contact Info) Description 12/15/2023 Orders Only Access Center, [place] [facility] [address] [place] [address] Av Ext *DO NOT REMOVE THIS DEPARTMENT* HERBERT BRO [id number] Requisition, External Radiology [address] [place] [address] PVD (peripheral vascular disease) ([facility])* Allergies Active Allergy Reactions Criticality Noted Date Comments Diphenhydramine Hcl Psych complications 009 Quinolones 11/21/2020 Motor weakness/ exacerbation of parkinsonism documented as of this encounter (statuses as of 12/15/2023) Medications Medication Sig Dispensed Refills Start Date End Date Status METAMUCIL 0.52 GM OR CAPS 3 capsules daily 0 07/24/2004 Active CLONAZEPAM 0.5 MG PO TABS one at bedtime 0 03/07/2008 Active VITAMIN B-12 1000 MCG PO TABS daily 0 Active ASPIRIN 81 MG PO TABS daily 0 Active CLONIDINE HCL 0.1 MG PO TABS daily 0 Active Atorvastatin Calcium 20 MG Oral Tablet (Lipitor) Take 20 mg by mouth at bedtime. 0 Active Carbidopa-Levodopa 25-100 MG Oral Tablet (Sinemet)Indications :take 2.5 tablets at 0900, 2 tablet 1300, 1700, then one tablet at bedtime Take 2 Tabs by mouth 4 times a day. Indications: take 2.5 tablets at 0900, 2 tablet 1300, 1700, then one tablet at bedtime 0 Active Eliu Male External Catheter Use as directed at bedtime. 0 Active Vitamin D3 50 MCG (2000 UT) Oral Capsule Take 2,000 Units by mouth daily. 0 Active clonazePAM 1 MG Oral Tablet (KlonoPIN) Take 2 mg by mouth every night at bedtime. 0 Active cloNIDine HCl 0.1 MG Oral Tablet (Catapres)Indication s:Take one tablet at bedtime, take 1/2 to 1 tablet every 8-12 hours for blood pressure measurement over 160/95 Take 0.1 mg by mouth at bedtime. Indications: Take one tablet at bedtime, take 1/2 to 1 tablet every 8-12 hours for blood pressure measurement over 160/95 0 Active Donepezil HCl 10 MG Oral Tablet (Aricept) Take 10 mg by mouth daily. Take with largest meal of the day. 0 Active Escitalopram Oxalate 10 MG Oral Tablet (Lexapro) Take 10 mg by mouth daily. 0 Active Fludrocortisone Acetate 0.1 MG Oral Tablet (Florinef)Indication s:take 1-2 tablets daily as directed Take 0.1 mg by mouth daily. Indications: take 1-2 tablets daily as directed 0 Active Glycerin (Adult) 2 GM Rectal Suppository Administer 1 Suppository into the rectum daily as needed. 0 Active Ibuprofen 200 MG Oral Capsule (Advil Migraine) Take 200 mg by mouth as needed. 0 Active Levothyroxine Sodium 50 MCG Oral Tablet (Levoxyl) Take 50 mcg by mouth daily first thing in the morning. (at least 30 min prior to breakfast or other meds) 0 Active Linzess 290 MCG Oral Capsule (linaCLOtide) Take 290 mcg by mouth daily. 0 Active Melatonin 10 MG Oral Capsule Take 10 mg by mouth at bedtime. 0 Active Multi-Day Oral Tablet Take 1 Tab by mouth daily. 0 Active Gratiot-3 Fish Oil 1000 MG Oral Capsule (Gratiot-3) Take 1,000 mg by mouth daily. 0 Active Polyethylene Glycol 3350 17 GM Oral Packet (Miralax) Take 17 g by mouth daily. 0 Active Potassium Chloride Marleni ER 20 MEQ Oral Tablet Extended Release Take 10 mEq by mouth 2 times a day. 0 Active Sennosides 8.6 MG Oral Tablet (Senokot)Indications :taper down as tolerated Take 2 Tabs by mouth 2 times a day. Indications: taper down as tolerated 0 Active Metoprolol Tartrate 25 MG Oral Tablet (Lopressor) Take 25 mg by mouth daily. 0 Active Cetirizine HCl 10 MG Oral Tablet (ZyrTEC) Take 10 mg by mouth daily. 0 Active documented as of this encounter (statuses as of 12/15/2023) Active Problems Problem Noted Date Diagnosed Date Esophageal reflux 07/24/2004 Benign localized hyperplasia of prostate without urinary obstruction and other lower urinary tract symptoms (LUTS) 07/24/2004 Generalized osteoarthritis 07/24/2004 ANGIOEDEMA 07/24/2004 documented as of this encounter (statuses as of 12/15/2023) Social History Tobacco Use Types Packs/Day Years Used Date Smoking Tobacco: Never Comments:no passive smoke at home Alcohol Use Standard Drinks/Week Comments Yes 0 (1 standard drink = 0.6 oz pur e alcohol) 14-18 drinks/week Sex and Gender Information Value Date Recorded Sex Assigned at Not on file Gender Identity Not on file Sexual Orientation Not on file documented as of this encounter Plan of Treatment Upcoming Encounters Date Type Department Care Team (Late st Contact Info) Description 12/22/2023 2:00 PM EDT Imaging Vascular Lab, [address] [address] 12/22/2023 3:00 PM EDT Imaging Vascular Lab, [address] [address] Scheduled Orders Name Type Priority Associated Diagnoses Orde r Schedule VASC ANKLE BRACHIAL INDICES WITHOUT PPG (PAD) Medical Imaging Routine PVD (peripheral vascular disease) ([facility]) Expected: 01/14/2024, Expires: 01/13/2025 Health Maintenance Due Date Last Done Comments Depression Screening 1952 TSH 04/27/2022 04/27/2021, 06/12/2011 DTaP,Tdap,and Td Vaccines (3 - Tdap) 03/29/2023 03/29/2013, 01/13/2006 COVID-19 Vaccine (2 - season) 2023 10/12/2020 Influenza Vaccine (FLU shot) (Season Ended) 2024 05/29/2020, 05/29/2020, 05/28/2019, Additional history exists Pneumococcal Vaccine: 65+ Years Completed 11/25/2018, 02/29/2016, 03/19/2014, Additional history exists Zoster Vaccines Completed 02/10/2019, 11/14, 04/08/2014 GARDASIL-HPV IMMUNIZATION SERIES Aged Out No longer eligible based on patient's age to complete this topic Hepatitis B Aged Out No longer eligi ble based on patient's age to complete this topic MENINGOCOCCAL (MENACTRA/MENVEO) Aged Out No longer eligible based on patient's age to complete this topic documented as of this encounter Medical Devices Not on filedocumented as of this encounter Visit Diagnoses Diagnosis PVD (peripheral vascular disease) (HCC)- Primary Peripheral vascular disease, unspecified documented in this encounter Care Teams Fluid Dynamicist Relationship Specialty Start Date End Date Jon Bal DO [address] [place] [address] PCP - General 07/24/04 documented as of this encounter
--- OUTSIDE RECORDS SUMMARY | 2024-02-17 02:47 | External Medical Summary | Summary of Care ---
Author Name Unknown Organization [facility] Address [address] [place] [address] Phone [phone] Care Team Providers Care Molding Line Assistant Name Role Phone Jon Bal DO Primary Care Provider [phone] Encounter Details Date Type Department Care Team (Late st Contact Info) Description 12/15/2023 Orders Only Access Center, [place] [facility] [address] [place] [address] Av Ext *DO NOT REMOVE THIS DEPARTMENT* HERBERT BRO [id number] Requisition, External Radiology [address] [place] [address] PVD (peripheral vascular disease) ([facility])* Allergies Active Allergy Reactions Criticality [...] 1 Tab by mouth daily. 0 Active Bayamon-3 Fish Oil 1000 MG Oral Capsule (Bayamon-3) Take 1,000 mg by mouth daily. 0 [...] 12/22/2023 2:00 PM EDT Imaging Vascular Lab, [address] [address] 12/22/2023 3:00 PM EDT Imaging Vascular Lab, [address] [address] Scheduled Orders Name Type Priority Associated Diagnoses Orde r Schedule VASC DUPLEX VENOUS LE BILAT Medical Imaging Routine PVD (peripheral vascular disease) ([facility]) Expected: 01/14/2024, Expires: 01/13/2025 Health [...] unspecified documented in this encounter Care Teams Molding Line Assistant Relationship Specialty Start Date End Date Jon Bal DO [address] [place] [address] PCP - General 07/24/04 documented as of this encounter
[2024-02-17] MEDS: LEVOTHYROXINE SODIUM 75 MCG TABLET PO SCH (05:46)
[2024-02-17] MEDS: DOXYCYCLINE HYCLATE 100 MG in DEXTROSE 5% MINI-B 100 ML IV SCH (05:46)
[2024-02-17 07:21] LABS: Hematocrit (blood only) 32.2 % (42.0-52.0); Hemoglobin 10.7 g/dl (14.0-18.0); Mean Corpuscular Hemoglobin 29.4 pg (25.0-34.0); Mean Corpuscular Hgb Conc 33.2 g/dL (32.0-36.0); Mean Corpuscular Volume 88.5 fL (80.0-100.0); Mean Platelet Volume 10.8 fL (9.4-12.4); Platelet Count 189 K/uL (130-400); RDW Standard Deviation 42.2 fL (36.4-46.3); Red Blood Count 3.64 M/uL (4.70-6.10); White Blood Count 7.63 K/ul (4.8-10.8)
[2024-02-17 07:42] LABS: Albumin Level 3.3 gm/dl (3.4-5.0); BUN Creatinine Ratio 16.7 (10-20); Bilirubin Direct 0.3 mg/dl (0-0.2); Bilirubin,Total 1.3 mg/dl (0.2-1.0); Calcium 8.1 mg/dl (8.6-10.3); Creatinine Clr Calc Pharmacy 88.3 ml/min; Est GFR (African American) 101.4 ml/min; Est GFR (Non-African American) 87.5 ml/min; Potassium 3.7 mmol/L (3.5-5.1); Total Protein 6.1 gm/dl (6.0-8.3)
[2024-02-17] MEDS: cefTRIAXone SODIUM 1,000 MG/50 ML BAG IV SCH (08:38)
[2024-02-17] MEDS: ATORVASTATIN 20 MG TAB PO SCH (08:43)
[2024-02-17] MEDS: bisacodyL 10 MG SUPP PR SCH (08:44)
[2024-02-17] MEDS: SENNA 8.6 MG TAB PO SCH (08:44)
[2024-02-17] MEDS: VENLAFAXINE HCL XR 75 MG CAPXR PO SCH (08:44)
[2024-02-17] MEDS: CARBIDOPA/LEVODOPA 25-250 1 EA TAB PO SCH (08:45)
[2024-02-17] MEDS: APIXABAN 5 MG TABLET PO SCH (08:45)
[2024-02-17] MEDS: DONEPEZIL HCL 10 MG TAB PO SCH (08:45)
[2024-02-17] MEDS: POLYETHYLENE (MIRALAX) 17 GM PACK PO SCH (08:46)
--- NOTE | 2024-02-17 10:43 | XRay Report ---
TWO VIEW CHEST CLINICAL HISTORY: Pneumonia. FINDINGS: AP and lateral chest radiographs are compared to study dated 02/16/2024 and correlated with c hest CT dated 12/31/2022. The heart is enlarged noting atherosclerotic calcification of the thoracic a jose de jesus. There is pulmonary vascular congestion. There are left larger than right pleural effusions with dependent consolidation. There is no pneumothorax. The skeletal structures are osteopenic. The bony thorax appears intact. IMPRESSION: 1. Cardiomegaly with pulmonary vascular congestion. 2. Left larger than right pleural effusions with dependent consolidation. ACT 112: Negative or not required by law. Electronically signed by: Edi Wood M.D. 02/17/2024 10:42 AM
--- NOTE | 2024-02-17 10:48 | XRay Report ---
KUB HISTORY: fecal impaction COMPARISON: KUB 12/29/2022. Abdomen and pelvis CT 02/16/2024. FINDINGS: The bowel gas pattern is unremarkable. There are no dilated loops of small bowel to suggest an obstruction. No renal calculi. No ureteral calculi. No pneumoperitoneum or pneumatosis. Residual contrast within the bladder from the prior CT examination. Moderate to large amount of well-formed s tool again noted within the distal colon/rectum. This is similar to the prior study. IMPRESSION: 1. Nonobstructive bowel gas pattern. 2. Moderate to large amount of well-formed stool again noted within the distal colon/rectum. This is similar to the prior study. ACT 112: Negative or not required by law. Electronically signed by: Micha Cloud M.D. 02/17/2024 10:46 AM
--- NOTE | 2024-02-17 14:50 | Hospitalist Progress Note ---
Date of Service February 17, 2024 Assessment & Plan (1) Constipation: Plan: severe, with impaction despite PO and MD agents he still has not had significant stool output will try mineral oil enema x 1 cont miralax + senna if no luck with the above then lactulose or soap suds enema check a TSH level (2) Pneumonia: Plan: CXR with questionable pneumonia furthermore, he has had essentially no symptoms of pneumonia and O2 sats have been wnl WBC count is normal and procal is negative CT chest obtained to see if pneumonia is truly present there are b/l basilar infiltrates - likely due to aspiration cont current abx for now will ask speech therapy to consult for swallow eval (3) Hypertension: Plan: BPs elevated at time of admission This is despite h/o orthostatic hypotension and need for Midodrine and Fludrocortisone both meds placed on hold Trend the BPs certainly discomfort from constipation/impaction could elevate the BPs stress of illness could contribute etc (4) Acute metabolic encephalopathy: Plan: likely 2nd to fecal impaction +/- pneumonia treat individual issues supportive care avoid benzos/sedatives melatonin HS Plan Depression - -Continue Venlafaxine 75mg po daily Hypothyroidism - check TSH am -Continue Synthroid 75mcg po daily Dementia - -Continue Aricept 10mg po daily Atrial Fibrillation - rate controlled. On anticoagulation -Continue Digoxin, level therapeutic -Continue Apixaban BID Parkinson's Disease - severe, with dementia -Continue Carbidopa/Levodopa Hyperlipidemia - -Continue Lipitor DVT proph - eliquis BID extensively updated at bedside obtain PT/OT evals while here Admission and Anticipated Discharge Date Admission Date: February 16, 2024 Subjective has had some small BMs since admission but no large BM by report eating fair no nausea or emesis he denies any abd pain at bedside she denies any recent issues with swallowing, but he does cough during meal times he [facility] and did ok with that following such he & his met with the speech therapist; minor modifications in diet were discussed; video swallow not done patient unable to provide much in the way of history or ROS due to dementia & superimposed confusion finally, with respect to ?pneumonia, reports no dyspnea or significant cough up until 2 days ago he was taking both midodrine and florinef Review of Systems Review of Systems: Unobtainable due to cognitive status Physical Exam Physical Exam: gen - NAD, laying in bed comfortably, does not offer history or speak often mouth - MMM neck - no JVD heart - RRR, s1 s2, no murmur lungs - scant dry rales bases, otherwise CTA b/l; good airation; no wheeze abd - mildly distended, BS+ but decreased, no HSM; nontender ext - no edema, pulses 2+ b/l neuro - masked facies; no facial droop; strength 5/5 x 4 exts; DTRs 1-2+ b/l Results & Data Results & Data Vital Signs (Past 12 Hours) Vital Signs Temp Pulse Resp BP Pulse Ox O2 Del Method 02/17/24 07:55 36.6 C 60 16 158/85 H 94 Room Air Laboratory Results Laboratory Results - last 48 hr 02/16/24 02/16/24 02/16/24 15:08 20:42 Unknown WBC 5.55 RBC 4.14 L Hgb 12.4 L Hct 37.4 L MCV 90.3 MCH 30.0 MCHC 33.2 RDW Std Deviation 43.5 RDW Coeff of Imelda 13.2 Plt Count 202 MPV 10.7 Immature Gran % (Auto) 0.2 Neut % (Auto) 70.5 Lymph % (Auto) 17.3 Sibley % (Auto) 8.1 Eos % (Auto) 3.2 Baso % (Auto) 0.7 Neut # (Auto) 3.91 Lymph # (Auto) 0.96 L Sibley # (Auto) 0.45 Eos # (Auto) 0.18 Baso # (Auto) 0.04 Immature Gran # (Auto) 0.01 Sodium 140 Potassium 3.9 Chloride 102 Carbon Dioxide 33 H Anion Gap 5 BUN 13 Creatinine 0.80 Est Cr Clr Drug Dosing Not Reportable Est GFR ( Amer) 97.1 Est GFR (Non-Af Amer) 83.8 BUN/Creatinine Ratio 16.3 Glucose 90 Calcium 8.9 Phosphorus 3.5 Magnesium 2.1 Total Bilirubin 1.8 H Direct Bilirubin AST 15 ALT 12 Alkaline Phosphatase 86 Total Protein 7.0 Albumin 3.8 Globulin 3.2 Albumin/Globulin Ratio 1.2 Procalcitonin < 0.02 TSH Urine Color Yellow Urine Appearance Clear Urine pH 7.0 Ur Specific [place] 1.014 Urine Protein Negative Urine Glucose (UA) Negative Urine Ketones 1+ H Urine Blood Negative Urine Nitrite Negative Urine Bilirubin Negative Urine Urobilinogen Negative Ur Leukocyte Esterase Negative Digoxin 1.1 Adenovirus (PCR) Not Detected B. pertussis DNA (PCR) Not Detected B.parapertussis DNA PCR Not Detected C. pneumoniae DNA (PCR) Not Detected Coronavirus OC43 (PCR) Not Detected Coronavirus HKU1 (PCR) Not Detected Coronavirus 229E (PCR) Not Detected SARS-CoV-2 (PCR) Not Detected Coronavirus NL63 (PCR) Not Detected Human Metapneumovir PCR Not Detected Influenza Type A (PCR) Not Detected Influenza Type B (PCR) Not Detected M. pneumoniae (PCR) Not Detected Parainfluenza 1 (PCR) Not Detected Parainfluenza 2 (PCR) Not Detected Parainfluenza 3 (PCR) Not Detected Parainfluenza 4 (PCR) Not Detected RSV (PCR) Not Detected Entero/Rhino (PCR) Not Detected 02/17/24 06:44 WBC 7.63 RBC 3.64 L Hgb 10.7 L Hct 32.2 L MCV 88.5 MCH 29.4 MCHC 33.2 RDW Std Deviation 42.2 RDW Coeff of Imelda 13.0 Plt Count 189 MPV 10.8 Immature Gran % (Auto) Neut % (Auto) Lymph % (Auto) Sibley % (Auto) Eos % (Auto) Baso % (Auto) Neut # (Auto) Lymph # (Auto) Sibley # (Auto) Eos # (Auto) Baso # (Auto) Immature Gran # (Auto) Sodium 137 Potassium 3.7 Chloride 100 Carbon Dioxide 33 H Anion Gap 4 BUN 12 Creatinine 0.72 Est Cr Clr Drug Dosing 88.3 Est GFR ( Amer) 101.4 Est GFR (Non-Af Amer) 87.5 BUN/Creatinine Ratio 16.7 Glucose 90 Calcium 8.1 L Phosphorus Magnesium Total Bilirubin 1.3 H Direct Bilirubin 0.3 H AST 13 ALT 3 L Alkaline Phosphatase 73 Total Protein 6.1 Albumin 3.3 L Globulin Albumin/Globulin Ratio Procalcitonin TSH Urine Color Urine Appearance Urine pH Ur Specific [place] Urine Protein Urine Glucose (UA) Urine Ketones Urine Blood Urine Nitrite Urine Bilirubin Urine Urobilinogen Ur Leukocyte Esterase Digoxin Adenovirus (PCR) B. pertussis DNA (PCR) B.parapertussis DNA PCR C. pneumoniae DNA (PCR) Coronavirus OC43 (PCR) Coronavirus HKU1 (PCR) Coronavirus 229E (PCR) SARS-CoV-2 (PCR) Coronavirus NL63 (PCR) Human Metapneumovir PCR Influenza Type A (PCR) Influenza Type B (PCR) M. pneumoniae (PCR) Parainfluenza 1 (PCR) Parainfluenza 2 (PCR) Parainfluenza 3 (PCR) Parainfluenza 4 (PCR) RSV (PCR) Entero/Rhino (PCR) Diagnostic Findings KUB X-Ray 02/17/24 08:58 KUB HISTORY: fecal impaction COMPARISON: KUB 12/29/2022. Abdomen and pelvis CT 02/16/2024. FINDINGS: The bowel gas pattern is unremarkable. There are no dilated loops of small bowel to suggest an obstruction. No renal calculi. No ureteral calculi. No pneumoperitoneum or pneumatosis. Residual contrast within the bladder from the prior CT examination. Moderate to large amount of well-formed stool again noted within the distal colon/rectum. This is similar to the prior study. IMPRESSION: 1. Nonobstructive bowel gas pattern. 2. Moderate to large amount of well-formed stool again noted within the distal colon/rectum. This is similar to the prior study. ACT 112: Negative or not required by law. Electronically signed by: Micha Cloud M.D. 02/17/2024 10:46 AM Chest X-Ray 02/17/24 08:59 TWO VIEW CHEST CLINICAL HISTORY: Pneumonia. FINDINGS: AP and lateral chest radiographs are compared to study dated 02/16/2024 and correlated with chest CT dated 12/31/2022. The heart is enlarged noting atherosclerotic calcification of the thoracic aorta. There is pulmonary vascular congestion. There are left larger than right pleural effusions with dependent consolidation. There is no pneumothorax. The skeletal structures are osteopenic. The bony thorax appears intact. IMPRESSION: 1. Cardiomegaly with pulmonary vascular congestion. 2. Left larger than right pleural effusions with dependent consolidation. ACT 112: Negative or not required by law. Electronically signed by: Edi Wood M.D. 02/17/2024 10:[address] 02/17/24 14:48 CT chest diagnostic wo con CT DOSE: 713.33 mGy.cm HISTORY: Abnormal chest x-ray. Follow-up. effusions, ?infiltrates on cxr; eval pneumonia TECHNIQUE: Multiaxial CT images of the chest were performed without contrast. A dose lowering technique was utilized adhering to the principles of ALARA. COMPARISON: Chest 12/31/2022. FINDINGS: No pneumothorax. The central airways are patent. Left lower lobe bronchial wall thickening is noted. Stable 9 mm focal irregular density within the superior segment of the left lower lobe on image 46. This may represent an area of scarring given the long-term stability. Stable 5 mm subpleural nodule within the right middle lobe on image 141. Consolidation within the lower lobes posteriorly favors compressive atelectasis from the small bilateral pleural effusions. These are similar to the prior study. However, there are additional patchy and nodular airspace opacities within the lung bases. These are new from the prior study and likely represents a pneumonia. This could be due to prior aspiration. No acute fractures within the chest. Mild body wall edema is noted. Limited views of the upper abdomen demonstrate a normal liver and spleen. The adrenal glands unremarkable. There is residual contrast within the urinary system. Normal caliber esophagus. Calcified plaque within the normal caliber thoracic aorta. There are moderate coronary artery calcifications noted. No mediastinal or hilar lymphadenopathy. The heart is mildly enlarged. There is a small to moderate pericardial effusion, unchanged. IMPRESSION: 1. Consolidation within the lower lobes posteriorly favors compressive atelectasis from the small bilateral pleural effusions. These are similar to the prior study. 2. However, there are additional patchy and nodular airspace opacities within the lung bases. These are new from the prior study and likely represents a pneumonia. This could be due to prior aspiration. 3. A small to moderate pericardial effusion, unchanged. 4. Stable subcentimeter pulmonary nodules as described above. ACT 112: Negative or not required by law. Electronically signed by: Micha Cloud M.D. 02/17/2024 4:03 PM PG Care Time/CCT Total # of Minutes Spent Total Time Spent with Patient: Total time spent is greater than 50% in coordination of care (as documented) at patient's floor/unit and/or counseling patient: Coding Level of Care Code 54129 SUB INP/OBS CARE 3/50MIN Diagnoses Constipation K59.00 Pneumonia J18.9 Hypertension I10 Acute metabolic encephalopathy G93.41
[2024-02-17] MEDS: MINERAL OIL ENEMA 133 ML BTL PR ONE (15:57)
--- NOTE | 2024-02-17 16:04 | CT Scan Report ---
CT chest diagnostic wo con CT DOSE: 713.33 mGy.cm HISTORY: Abnormal chest x-ray. Follow-up. effusions, ?infiltrates on cxr; eval pneumonia TECHNIQUE: Multiaxial CT images of the chest were performed without contrast. A dose lowering techni que was utilized adhering to the principles of ALARA. COMPARISON: Chest 12/31/2022. FINDINGS: No pneumothorax. The central airways are patent. Left lower lobe bronchial wall thickening is noted. Stable 9 mm focal irregular density within the superior segment of the left lower lobe on i mage 46. This may represent an area of scarring given the long-term stability. Stable 5 mm subpleural nodule within the right middle lobe on image 141. Consolidation within the lower lobes posteriorly f avors compressive atelectasis from the small bilateral pleural effusions. These are similar to the pr ior study. However, there are additional patchy and nodular airspace opacities within the lung bases. These are new from the prior study and likely represents a pneumonia. This could be due to prior asp iration. No acute fractures within the chest. Mild body wall edema is noted. Limited views of the upp er abdomen demonstrate a normal liver and spleen. The adrenal glands unremarkable. There is residual contrast within the urinary system. Normal caliber esophagus. Calcified plaque within the normal tray bart thoracic aorta. There are moderate coronary artery calcifications noted. No mediastinal or hilar lymphadenopathy. The heart is mildly enlarged. There is a small to moderate pericardial effusion, unc hanged. IMPRESSION: 1. Consolidation within the lower lobes posteriorly favors compressive atelectasis from the small morena ateral pleural effusions. These are similar to the prior study. 2. However, there are additional patchy and nodular airspace opacities within the lung bases. These a re new from the prior study and likely represents a pneumonia. This could be due to prior aspiration. 3. A small to moderate pericardial effusion, unchanged. 4. Stable subcentimeter pulmonary nodules as described above. ACT 112: Negative or not required by law. Electronically signed by: Micha Cloud M.D. 02/17/2024 4:03 PM
[2024-02-17] MEDS: DIGOXIN 0.25 MG TAB PO SCH (17:03)
[2024-02-17] MEDS: clonazePAM 1 MG TAB PO SCH (20:04)
--- NOTE | 2024-02-18 06:17 | Electrocardiogram Report ---
Test Reason : Blood Pressure : / mmHG Vent. Rate : 064 BPM Atrial Rate : 000 BPM P-R Int : 000 ms QRS Dur : 086 ms QT Int : 420 ms P-R-T Axes : 000 -13 037 degrees QTc Int : 433 ms Atrial fibrillation Abnormal ECG When compared with ECG of 23-OCT-2023 18:34, No significant change Confirmed by Sánchez Jaimes ([id number]) on 02/18/2024 6:16:59 AM Referred By: Confirmed By:Sánchez Jaimes
[2024-02-18 06:44] LABS: BUN Creatinine Ratio 17.6 (10-20); Calcium 8.3 mg/dl (8.6-10.3); Creatinine Clr Calc Pharmacy 85.9 ml/min; Est GFR (African American) 100.3 ml/min; Est GFR (Non-African American) 86.5 ml/min; Potassium 3.7 mmol/L (3.5-5.1)
[2024-02-18 06:58] LABS: Thyroid Stimulating Hormone 2.214 uIu/ml (0.300-4.500)
[2024-02-18] MEDS: LACTULOSE 200GM/700ML WTR ENEMA PR ONE (10:52)
[2024-02-18] MEDS: hydrALAZINE 10 MG TAB PO PRN (12:04)
[2024-02-18] MEDS: LAVAGE SOLUTION 4000ML PO ONE (13:43)
--- NOTE | 2024-02-18 20:36 | Hospitalist Progress Note ---
Date of Service February 18, 2024 Assessment & Plan (1) Constipation: Plan: severe, with impaction despite PO and OR agents he still has not had significant stool output he simply cannot hold any enema - we have tried multiple types of enemas thus - golytely prep today; repeat KUB x-ray in am to reassess stool load (2) Pneumonia: Plan: CT chest with b/l basilar infiltrates - likely due to aspiration cont current abx for now (rocephin/doxy) appreciate speech therapy consult for swallow eval no changes in diet/liquids (3) Hypertension: Plan: BPs elevated at time of admission This is despite h/o orthostatic hypotension and need for Midodrine and Fludrocortisone both meds placed on hold BP trend - labile, with some BPs acceptable, and others quite high certainly discomfort from constipation/impaction could elevate the BPs stress of illness could contribute poor sleep can contribute continue to trend for now (4) Acute metabolic encephalopathy: Plan: likely 2nd to fecal impaction +/- pneumonia treat individual issues supportive care avoid benzos/sedatives melatonin HS add risperdal 0.25mg HS prn for extreme agitation/delirium Plan Depression - -Continue Venlafaxine 75mg po daily Hypothyroidism - check TSH am -Continue Synthroid 75mcg po daily Dementia - -Continue Aricept 10mg po daily Atrial Fibrillation - rate controlled. On anticoagulation -Continue Digoxin, level therapeutic -Continue Apixaban BID Parkinson's Disease - severe, with dementia -Continue Carbidopa/Levodopa Hyperlipidemia - -Continue Lipitor DVT proph - eliquis BID extensively updated at bedside again today PT/OT evals pending Admission and Anticipated Discharge Date Admission Date: February 18, 2024 Subjective still having liquid stools but nothing formed and not large no abd pain or N/V some coughing with drinking fluids speech therapy saw him today - swallowing function is about the same as during their prior evaluation pt's at bedside had confusion again overnight patient - due to dementia - offers little in the way of spontaneous conversation or history Review of Systems Review of Systems: GI - denies any pain; no vomiting pul - no dyspnea; minimal cough Physical Exam Physical Exam: gen - NAD, laying in bed comfortably, looks tired today mouth - MMM neck - no JVD heart - RRR, s1 s2, no murmur lungs - CTA b/l; good airation; no wheeze or rales today abd - still mildly distended, BS+ but decreased, no HSM; nontender ext - no edema, pulses 2+ b/l neuro - masked facies Results & Data Results & Data Vital Signs (Past 12 Hours) Vital Signs Temp Pulse Pulse Pulse Pulse Resp BP 02/18/24 20:07 36.5 C 68 16 02/18/24 16:29 72 02/18/24 15:21 02/18/24 15:21 36.4 C L 65 16 02/18/24 12:37 36.6 C 68 14 02/18/24 12:03 62 192/84 H 02/18/24 12:00 63 176/76 H 02/18/24 08:53 36.7 C 72 16 BP Pulse Ox O2 Del Method O2 Flow Rate 02/18/24 20:07 177/74 H 97 Room Air 02/18/24 16:29 02/18/24 15:21 92 Oxymask 2 02/18/24 15:21 131/72 87 L Room Air 02/18/24 12:37 175/80 H 97 Room Air 02/18/24 12:03 98 Room Air 02/18/24 12:00 97 Room Air 02/18/24 08:53 144/60 H 94 Room Air Laboratory Results Laboratory Results - last 48 hr 02/18/24 05:49 Sodium 139 Potassium 3.7 Chloride 104 Carbon Dioxide 28 Anion Gap 7 BUN 13 Creatinine 0.74 Est Cr Clr Drug Dosing 85.9 Est GFR ( Amer) 100.3 Est GFR (Non-Af Amer) 86.5 BUN/Creatinine Ratio 17.6 Glucose 106 H Calcium 8.3 L Magnesium TSH 2.214 PG Care Time/CCT Total # of Minutes Spent Total Time Spent with Patient: Total time spent is greater than 50% in coordination of care (as documented) at patient's floor/unit and/or counseling patient: Coding Level of Care Code 36130 SUB INP/OBS CARE 2/35MIN Diagnoses Constipation K59.00 Pneumonia J18.9 Hypertension I10 Acute metabolic encephalopathy G93.41
[2024-02-18] MEDS: MELATONIN 3 MG TAB PO SCH (21:13)
[2024-02-18] MEDS: risperiDONE 0.25 MG TAB PO PRN (21:56)
[2024-02-19 06:56] LABS: Calcium 8.9 mg/dl (8.6-10.3); Magnesium 1.9 mg/dl (1.7-2.4); Potassium 3.8 mmol/L (3.5-5.1)
[2024-02-19 07:02] LABS: BUN Creatinine Ratio 17.2 (10-20); Creatinine Clr Calc Pharmacy 109.6 ml/min; Est GFR (African American) 110.8 ml/min; Est GFR (Non-African American) 95.6 ml/min
--- NOTE | 2024-02-19 08:15 | XRay Report ---
KUB HISTORY: recent severe constipation/impaction COMPARISON: [facility]UB 02/17/2024. FINDINGS: The bowel gas pattern is unremarkable. There are no dilated loops of small bowel to suggest an obstruction. No renal calculi. No ureteral calculi. No pneumoperitoneum or pneumatosis. Mild to moderate fecal retention has improved. There is a 6 cm rectal stool ball remaining. IMPRESSION: 1. Nonobstructive bowel gas pattern. 2. [id number] fecal retention has improved. ACT 112: Negative or not required by law. Electronically signed by: Micha Cloud M.D. 02/19/2024 8:13 AM
[2024-02-19] MEDS: LOSARTAN POTASSIUM 25 MG TAB PO SCH (09:37)
--- NOTE | 2024-02-19 11:19 | Hospitalist Progress Note ---
Date of Service February 19, 2024 Assessment & Plan (1) Constipation: Plan: severe, with impaction despite PO and OK agents he still has not had significant stool output he simply cannot hold any enema - we have tried multiple types of enemas thus - golytely prep today; repeat [facility] x-ray in am to reassess stool load (2) Pneumonia: Plan: CT chest with b/l basilar infiltrates - likely due to aspiration cont current abx for now (rocephin/doxy) appreciate speech therapy consult for swallow eval no changes in diet/liquids (3) Hypertension: Plan: BPs elevated at time of admission This is despite h/o orthostatic hypotension and need for Midodrine and Fludrocortisone both meds placed on hold BP trend - labile, with some BPs acceptable, and others quite high certainly discomfort from constipation/impaction could elevate the BPs stress of illness could contribute poor sleep can contribute continue to trend for now (4) Acute metabolic encephalopathy: Plan: likely 2nd to fecal impaction +/- pneumonia treat individual issues supportive care avoid benzos/sedatives melatonin HS add risperdal 0.25mg HS prn for extreme agitation/delirium Plan Depression - -Continue Venlafaxine 75mg po daily Hypothyroidism - check TSH am -Continue Synthroid 75mcg po daily Dementia - -Continue Aricept 10mg po daily Atrial Fibrillation - rate controlled. On anticoagulation -Continue Digoxin, level therapeutic -Continue Apixaban BID Parkinson's Disease - severe, with dementia -Continue Carbidopa/Levodopa Hyperlipidemia - -Continue Lipitor DVT proph - eliquis BID extensively updated at bedside again today PT/OT evals pending Admission and Anticipated Discharge Date Admission Date: February 18, 2024 Physical Exam Physical Exam: gen - NAD, laying in bed comfortably, looks tired today mouth - MMM neck - no JVD heart - RRR, s1 s2, no murmur lungs - CTA b/l; good airation; no wheeze or rales today abd - still mildly distended, BS+ but decreased, no HSM; nontender ext - no edema, pulses 2+ b/l neuro - masked facies Results & Data Results & Data Vital Signs (Past 12 Hours) Vital Signs Temp Pulse Resp BP BP Pulse Ox O2 Del Method 02/19/24 09:15 70 18 183/72 H 97 Room Air 02/19/24 07:19 36.5 C 84 18 200/78 H 189/78 H 95 Room Air 02/19/24 00:20 Room Air 02/19/24 00:00 36.8 C 65 16 164/79 H 97 Room Air PG Care Time/CCT Total # of Minutes Spent Total Time Spent with Patient: Total time spent is greater than 50% in coordination of care (as documented) at patient's floor/unit and/or counseling patient: Coding Diagnoses Constipation K59.00 Pneumonia J18.9 Hypertension I10 Acute metabolic encephalopathy G93.41
[2024-02-19] MEDS: MIDODRINE HCL 2.5 MG TAB PO STA (16:34)
[2024-02-19] MEDS: FLUDROCORTISONE ACETATE 0.1 MG TAB PO STA (16:34)
== END 2024-02-19 18:31 | disposition home health service (06) | DRG 391 ==
LOC: 3W 14:27 → ED 14:27 → SUATTDRO 21:25 → 3W 02-17 00:25

== ENCOUNTER 2024-03-21 13:00 | Inpatient (IN) ==
[2024-03-21] MEDS: SODIUM CHLORIDE 0.9% 1,000 ML IV SCH (13:47)
[2024-03-21 14:07] LABS: Base Excess VBG 5.5 mEq/L; HCO3 VBG 32 mmol/L; Oxygen Saturation VBG < 60.0 %; PCO2 VBG 56 mmHg (38-50); PO2 VBG 29 mmHg; pH VBG 7.37 (7.36-7.41)
[2024-03-21 14:10] LABS: Basophils # (auto) 0.04 K/uL (0.00-0.20); Basophils % (auto) 0.7 %; Eosinophils # (auto) 0.46 K/uL (0.00-0.50); Eosinophils % (auto) 8.3 %; Hematocrit (blood only) 39.1 % (42.0-52.0); Hemoglobin 12.7 g/dl (14.0-18.0); Immature Granulocytes # (auto) 0.01 K/uL (0.01-0.20); Immature Granulocytes % (auto) 0.2 %; Lymphocytes # (auto) 1.24 K/uL (1.20-3.40); Lymphocytes % (auto) 22.5 %; Mean Corpuscular Hgb Conc 32.5 g/dL (32.0-36.0); Mean Corpuscular Volume 92.2 fL (80.0-100.0); Monocytes # (auto) 0.51 K/uL (0.11-0.59); Monocytes % (auto) 9.3 %; Neutrophils # (auto) 3.25 K/uL (1.40-6.50); Platelet Count 194 K/uL (130-400); RDW Coefficient of Variation 13.5 % (11.5-14.5); RDW Standard Deviation 45.7 fL (36.4-46.3); Red Blood Count 4.24 M/uL (4.70-6.10); White Blood Count 5.51 K/ul (4.8-10.8)
[2024-03-21 14:18] LABS: Albumin Level 3.9 gm/dl (3.4-5.0); BUN Creatinine Ratio 20.2 (10-20); Bilirubin Direct 0.3 mg/dl (0-0.2); Bilirubin,Total 1.4 mg/dl (0.2-1.0); Calcium 9.4 mg/dl (8.6-10.3); Est GFR (African American) 87.8 ml/min; Est GFR (Non-African American) 75.7 ml/min; Magnesium 1.9 mg/dl (1.7-2.4); Potassium 4.1 mmol/L (3.5-5.1); Total Protein 6.9 gm/dl (6.0-8.3)
[2024-03-21 14:25] LABS: Troponin I High Sensitivity 19.5 pg/ml (0-20)
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
--- NOTE | 2024-03-21 14:37 | CT Scan Report ---
CT head/brain wo con CLINICAL HISTORY: hallucinations, ams Technique: Contiguous axial CT images of the head were acquired from the base of the skull to the gildardo jessica without intravenous contrast administration. Images were viewed in brain, subdural and [facility]. Automated dose lowering techniques and/or adjustment according to patient size were utilized for this exam. Comparison: Comparison is made to CT head 02/16/2024 Findings: Areas of decreased attenuation are present in the periventricular and subcortical white matter bilate rally consistent with small vessel ischemic disease. Generalized cerebral atrophy with commensurate e nlargement of the ventricles, sulci, and cisterns is also present. There is no acute intracranial hem orrhage or evidence of acute territorial infarction. No shift of the midline structures, mass effect, or extra-axial abnormalities are shown. Atherosclerotic calcifications are present in the intracran ial segments of the internal carotid arteries. Imaged portions of the paranasal sinuses and mastoid air cells are clear. The orbits appear normal. There are no acute fractures of the calvaria or scalp swelling. Impression: No acute intracranial hemorrhage, no evidence of acute territorial infarction or other acute intracra nial disease process. ACT 112: Negative or not required by law. Electronically signed by: Philip Hinton M.D. 03/21/2024 2:35 PM
[2024-03-21 14:47] LABS: Adenovirus PCR Not Detected (NotDetected); Bordetella parapertussis PCR Not Detected (NotDetected); Bordetella pertussis PCR Not Detected (NotDetected); Chlamydia pneumoniae PCR Not Detected (NotDetected); Coronavirus 229E PCR Not Detected (NotDetected); Coronavirus CoV-2 (COVID19)PCR Not Detected (NotDetected); Coronavirus HKU1 PCR Not Detected (NotDetected); Coronavirus NL63 PCR Not Detected (NotDetected); Coronavirus OC43PCR Not Detected (NotDetected); Human Metapneumovirus PCR Not Detected (NotDetected); Influenza A PCR Not Detected (NotDetected); Influenza B PCR Not Detected (NotDetected); Mycoplasma pneumoniae PCR Not Detected (NotDetected); Parainfluenza Virus 1 PCR Not Detected (NotDetected); Parainfluenza Virus 2 PCR Not Detected (NotDetected); Parainfluenza Virus 3 PCR Not Detected (NotDetected); Parainfluenza Virus 4 PCR Not Detected (NotDetected); Respiratory Syncytial VirusPCR Not Detected (NotDetected); Rhinovirus/Enterovirus PCR Not Detected (NotDetected)
--- NOTE | 2024-03-21 15:03 | XRay Report ---
XR chest 1V portable CLINICAL HISTORY: Sepsis TECHNIQUE: Single frontal radiograph of the chest was obtained. Comparison: Comparison is made to chest radiograph 02/17/2024 FINDINGS: No lines and tubes are seen. Cardiomegaly is noted. The aortic arch is calcified. Prominence and ceph alization of the vasculature is seen. No evidence of pleural effusion or pneumothorax. IMPRESSION: Cardiomegaly and mild pulmonary edema. No evidence of consolidation to suggest pneumonia. ACT 112: Negative or not required by law. Electronically signed by: Philip Hinton M.D. 03/21/2024 3:02 PM
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
[2024-03-21 17:21] LABS: Appearance Urine Clear (Clear); Bilirubin Urine Negative (Negative); Blood Urine Negative (Negative); Color Urine Yellow; Glucose Urine UA Negative (Negative); Ketones Urine Negative (Negative); Leukocyte Esterase Urine Negative (Negative); Nitrite Urine Negative (Negative); Protein Urine Negative (Negative); Specific Gravity Urine 1.006 (1.000-1.030); Urobilinogen Urine Negative (Negative); pH Urine 8.5 (4.5-7.5)
[2024-03-21] MEDS ORDERED: ONDANSETRON INJ 2 MG/ML 2 ML VIAL IV PRN (18:27)
[2024-03-21] MEDS ORDERED: ACETAMINOPHEN 325 MG TAB PO PRN (18:27)
[2024-03-21] MEDS ORDERED: guaiFENesin 600 MG TABCR PO PRN (18:27)
[2024-03-21] MEDS ORDERED: FLUTICASONE PROPIONATE NA SPR 16 GM BTL PRN (18:27)
[2024-03-21] MEDS: DIGOXIN 0.25 MG TAB PO SCH (20:07)
[2024-03-21] MEDS: clonazePAM 1 MG TAB PO SCH (20:20)
[2024-03-21] MEDS: FLUDROCORTISONE ACETATE 0.1 MG TAB PO SCH (20:21)
[2024-03-21] MEDS: APIXABAN 5 MG TABLET PO SCH (20:21)
[2024-03-21] MEDS: CARBIDOPA/LEVODOPA 25/100MG TAB PO SCH (20:21)
[2024-03-22] MEDS: LEVOTHYROXINE SODIUM 75 MCG TABLET PO SCH (06:22)
--- NOTE | 2024-03-22 06:24 | Electrocardiogram Report ---
Test Reason : Blood Pressure : / mmHG Vent. Rate : 053 BPM Atrial Rate : 000 BPM P-R Int : 000 ms QRS Dur : 088 ms QT Int : 414 ms P-R-T Axes : 000 -17 017 degrees QTc Int : 388 ms Atrial fibrillation with slow ventricular response Abnormal ECG When compared with ECG of 16-FEB-2024 15:02, HR has decreased Confirmed by Abdulkadir Ontiveros ([id number]) on 03/22/2024 6:24:31 AM Referred By: REFERRED SELF Confirmed By:Abdulkadir Ontiveros
[2024-03-22 06:29] LABS: Basophils # (auto) 0.04 K/uL (0.00-0.20); Basophils % (auto) 0.8 %; Eosinophils # (auto) 0.36 K/uL (0.00-0.50); Eosinophils % (auto) 7.1 %; Hematocrit (blood only) 34.2 % (42.0-52.0); Hemoglobin 11.3 g/dl (14.0-18.0); Immature Granulocytes # (auto) 0.01 K/uL (0.01-0.20); Immature Granulocytes % (auto) 0.2 %; Lymphocytes # (auto) 1.43 K/uL (1.20-3.40); Lymphocytes % (auto) 28.3 %; Mean Corpuscular Volume 90.7 fL (80.0-100.0); Mean Platelet Volume 11.3 fL (9.4-12.4); Monocytes # (auto) 0.56 K/uL (0.11-0.59); Monocytes % (auto) 11.1 %; Neutrophils # (auto) 2.66 K/uL (1.40-6.50); Neutrophils % (auto) 52.5 %; Platelet Count 159 K/uL (130-400); RDW Coefficient of Variation 13.1 % (11.5-14.5); RDW Standard Deviation 43.7 fL (36.4-46.3); Red Blood Count 3.77 M/uL (4.70-6.10); White Blood Count 5.06 K/ul (4.8-10.8)
[2024-03-22 07:00] LABS: Calcium 8.4 mg/dl (8.6-10.3); Magnesium 1.8 mg/dl (1.7-2.4); Potassium 3.7 mmol/L (3.5-5.1)
[2024-03-22 07:06] LABS: BUN Creatinine Ratio 24.1 (10-20); Creatinine Clr Calc Pharmacy 79.8 ml/min; Est GFR (African American) 97.6 ml/min; Est GFR (Non-African American) 84.2 ml/min
[2024-03-22] MEDS: POLYETHYLENE (MIRALAX) 17 GM PACK PO SCH (08:34)
[2024-03-22] MEDS: MIDODRINE HCL 2.5 MG TAB PO SCH (08:35)
[2024-03-22] MEDS: ATORVASTATIN 20 MG TAB PO SCH (08:35)
[2024-03-22] MEDS: VENLAFAXINE HCL XR 75 MG CAPXR PO SCH (08:35)
[2024-03-22] MEDS: DONEPEZIL HCL 5 MG TAB PO SCH (08:35)
[2024-03-22] MEDS: SENNA 8.6 MG TAB PO SCH (08:35)
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
[2024-03-22] MEDS: GADOBUTROL 65ML VIAL IV ONE (11:04)
--- NOTE | 2024-03-22 11:35 | Magnetic Resonance Report ---
Brain MRI WITH AND WITHOUT CONTRAST HISTORY: confusion TECHNIQUE: Multiplanar multisequence MRI of the brain was performed both before and after the intrave nous administration of contrast. COMPARISON STUDY: Head CT 03/21/2024. Brain MRI 06/30/2019. FINDINGS: There is no hematoma, midline shift, or acute infarct. The paranasal sinuses are clear. The mastoid air cells are clear. The ventricles and sulci demonstrate mild age-related involutional mckenzie ges. Scattered foci of T2 hyperintensity seen within the periventricular and subcortical white matter are nonspecific but suggestive of mild microvascular ischemic changes. This has slightly progressed. The major vascular flow voids at the skull base are well-maintained. Small lipoma within the high co nvexity of the scalp, unchanged. There is a 3 mm enhancing nodule abutting the left internal auditory canal best seen on image 31 of series 12. This favors a small vestibular schwannoma or possibly meni ngioma. IMPRESSION: 1. No acute infarct or intracranial hemorrhage. 2. A 3 mm enhancing nodule abutting the left internal auditory canal. 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 Electronically signed by: Micha Cloud M.D. 03/22/2024 11:34 AM
--- NOTE | 2024-03-22 21:31 | Hospitalist Progress Note ---
Date of Service March 22, 2024 Assessment & Plan (1) Altered mental status: Plan: Acute change in cognitive baseline, that has been worsening since Friday 03/16 Recent change in medication for patient's dementia from donepezil to rivastigmine on 03/01 Also stopped fludrocortisone and midodrine [address] revealed no acute findings consulted Neurology: this could be either progression of illness or perhaps due to medication changes. will resume donepezil ordered MRI of brain: no acute stroke. (2) Parkinson's disease with neurogenic orthostatic hypotension: Plan: Continue levodopa Continue fludrocortisone and midodrine and hold if SBP >140 Do NOT hold based off supine pressure (3) PAF (paroxysmal atrial fibrillation): Plan: Rate controlled on arrival Continue Eliquis, digoxin Digoxin level WNL (4) Hypertension: Plan: HTN in the ED with SBP ranging to 190 PCU status Continue clonazepam at bedtime (5) History of recurrent UTIs: Plan: UA negative on arrival Plan Disposition: Admit to PCU telemetry DNR/DNI Heart healthy, low-sodium diet VTE PPx: On Eliquis Admission and Anticipated Discharge Date Admission Date: March 21, 2024 Subjective Patient's at bedside. Patient is a poor historian and wants to be discharged. His states he is more confused this evening as compared to earlier in the day. Review of Systems Review of Systems: Unobtainable due to cognitive status Physical Exam Physical Exam: General: no acute distress; pleasant affect; HEENT: normocephalic, atraumatic; Results & Data Results & Data Vital Signs (Past 12 Hours) Vital Signs Temp Pulse Pulse Resp BP Pulse Ox O2 Del Method 03/22/24 19:12 36.5 C 71 17 166/81 H 96 Room Air 03/22/24 17:22 78 03/22/24 16:11 64 03/22/24 15:32 36.4 C L 60 18 150/72 H 97 Room Air 03/22/24 11:55 36.5 C 64 16 150/56 H 98 Room Air PG Care Time/CCT Total # of Minutes Spent Total Time Spent with Patient: Total time spent is greater than 50% in coordination of care (as documented) at patient's floor/unit and/or counseling patient: Coding Level of Care Code 19534 SUB INP/OBS CARE 3/50MIN Diagnoses Altered mental status R41.0 Altered mental status type: disorientation Parkinson's disease with neurogenic orthostatic hypotension G90.3 PAF (paroxysmal atrial fibrillation) I48.0 Hypertension I10 History of recurrent UTIs Z87.440 Time Spent (min) 50 (1) Altered mental status Altered mental status type: disorientation Qualified Code(s): R41.0 - Disorientation, unspecified
[2024-03-22] MEDS: MELATONIN 3 MG TAB PO PRN (23:33)
[2024-03-23 06:32] LABS: Basophils # (auto) 0.03 K/uL (0.00-0.20); Basophils % (auto) 0.6 %; Eosinophils # (auto) 0.35 K/uL (0.00-0.50); Eosinophils % (auto) 7.1 %; Hematocrit (blood only) 35.1 % (42.0-52.0); Hemoglobin 11.7 g/dl (14.0-18.0); Immature Granulocytes # (auto) 0.01 K/uL (0.01-0.20); Immature Granulocytes % (auto) 0.2 %; Lymphocytes # (auto) 1.66 K/uL (1.20-3.40); Lymphocytes % (auto) 33.7 %; Mean Corpuscular Hemoglobin 29.7 pg (25.0-34.0); Mean Corpuscular Hgb Conc 33.3 g/dL (32.0-36.0); Mean Corpuscular Volume 89.1 fL (80.0-100.0); Monocytes # (auto) 0.64 K/uL (0.11-0.59); Neutrophils # (auto) 2.23 K/uL (1.40-6.50); Neutrophils % (auto) 45.4 %; Platelet Count 168 K/uL (130-400); RDW Coefficient of Variation 12.9 % (11.5-14.5); RDW Standard Deviation 42.5 fL (36.4-46.3); Red Blood Count 3.94 M/uL (4.70-6.10); White Blood Count 4.92 K/ul (4.8-10.8)
[2024-03-23 06:54] LABS: Anion Gap 6 (3-11); BUN Creatinine Ratio 25.7 (10-20); Blood Urea Nitrogen 19 mg/dl (6-23); Calcium 8.8 mg/dl (8.6-10.3); Carbon Dioxide 29 mmol/L (21-32); Chloride 103 mmol/L (98-107); Est GFR (African American) 100.3 ml/min; Est GFR (Non-African American) 86.5 ml/min; Glucose 83 mg/dl (70-99(Fasting)); Potassium 3.8 mmol/L (3.5-5.1); Sodium 138 mmol/L (136-145)
[2024-03-23 06:55] LABS: Alanine Aminotransferase < 3 U/L (7-52); Albumin Globulin Ratio 1.4 (0.9-2); Albumin Level 3.6 gm/dl (3.4-5.0); Alkaline Phosphatase 66 U/L (34-104); Aspartate Aminotransferase 14 U/L (13-39); Bilirubin,Total 1.1 mg/dl (0.2-1.0); Globulin 2.6 gm/dl (2.5-4.0); Total Protein 6.2 gm/dl (6.0-8.3)
--- NOTE | 2024-03-23 11:52 | XRay Report ---
KUB CLINICAL HISTORY: Constipation. FINDINGS: 2 AP, portable, supine abdominal radiographs are compared to study dated 02/19/2024 and corre lated with abdominal CT dated 02/16/2024. There is a nonobstructed abdominal bowel gas pattern. There i s rectosigmoid fecal retention and moderate to severe constipation. No evidence of intraperitoneal fr ee air is seen on these supine images. There are no abnormal abdominal calcifications. The skeletal s tructures are osteopenic and appear intact. Lumbosacral spondylosis is observed. Advanced arthritic c hange is noted in the hips. IMPRESSION: Rectosigmoid fecal retention and moderate to severe constipation. Electronically signed by: Edi Wood M.D. 03/23/2024 11:51 AM
[2024-03-23] MEDS: POLYETHYLENE (MIRALAX) 17 GM PACK PO SCH (13:11)
[2024-03-23] MEDS: LAVAGE SOLUTION 4000ML PO ONE (15:04)
--- NOTE | 2024-03-23 15:07 | Discharge Summary ---
Date of Service March 23, 2024 Admission HPI Per Admitting Provider Andrew is an 83-year-old male with PMH of paroxysmal atrial fibrillation (on Eliquis), urge incontinence, Parkinson's disease, dementia, LVH, basal cell carcinoma, nephrolithiasis, and uremic encephalopathy syndrome. He presented on 03/21 for AMS. Patient's (Estephania (is at the bedside and provides most of the history. She reports he has been having visual hallucinations over the past week. She also relays a history of a horrible car ride back from [place] yesterday in which the patient was opening and [place] the door on the [place]. He has had multiple episodes of unintelligible speech and expressive aphasia. first noticed this acute change in cognitive baseline on Friday 03/16 and has gradually worsened. He oscillates between episodes of regular speech, and unintelligible speech. No facial droop or unilateral deficits noted. No PMH of stroke. He has been complaining of extreme fatigue; for instance, notes he went to bed at 7 PM last night, and woke up at 11 AM still feeling tired. Kayla youngblood's manages his medications at home; he took all of his regular medications this morning. However, there have been many medication changes within the past month. Patient was seen by [facility] on March 01 who recommended changing his donepezil to rivastigmine patch. This was then stopped last Friday after he developed cognitive changes. Patient was also taken off of fludrocortisone and midodrine 3 weeks ago as his home blood pressure measurements were getting higher (between SBP 140-180). Patient believes that the slurred speech may be due to extreme fatigue rather than stroke. No alcohol use, tobacco use, or smoking. Patient does have advanced Parkinson's disease and regularly has difficulty with his eyes, such as convergence. Patient is hypertensive at 191/77 at time of admission; vitals otherwise stable. ED course: NSS 1000mL IV ROS: Patient endorses cough (chronic), AMS since Friday, Patient denies fever, chills, night-sweats, dizziness/lightheadedness, CARMONA, chest pain, SOB, cough, abdominal pain, N/V/D, or change in urinary/bowel habits. Principal Diagnosis altered mental status Discharge Exam General: no acute distress; pleasant affect; HEENT: normocephalic, atraumatic; Discharge Data Allergies Allergy/AdvReac Type Severity Reaction Status Date / Time No Known Allergies Allergy Verified 03/21/24 15:35 Consultations 03/21/24 16:00 ED Decision to Admit Stat 03/22/24 08:44 Consult Neurology Routine Ordered Studies 03/21/24 13:10 CT head/brain wo con Stat 03/22/24 08:45 MR brain wo/w con Routine Hospital Course (1) Altered mental status: Acute change in cognitive baseline, that has been worsening since Friday 03/16 Recent change in medication for patient's dementia from donepezil to rivastigmine on 03/01 Also stopped fludrocortisone and midodrine [address] revealed no acute findings consulted Neurology: this could be either progression of illness or perhaps due to medication changes. will resume donepezil ordered MRI of brain: no acute stroke. Patient appears back to baseline. Patient also had a large BM with Miralax TID. (2) Parkinson's disease with neurogenic orthostatic hypotension: Continue levodopa Continue fludrocortisone and midodrine and hold if SBP >140 Do NOT hold based off supine pressure (3) PAF (paroxysmal atrial fibrillation): Rate controlled on arrival Continue Eliquis, digoxin Digoxin level WNL (4) Hypertension: HTN in the ED with SBP ranging to 190 PCU status Continue clonazepam at bedtime (5) History of recurrent UTIs: UA negative on arrival Total Time Total Time Spent Total Time Spent (In Minutes): 32 Discharge Plan Discharge Items Patient Disposition: Home - Self-Care Reason For Visit: AMS Discharge Diagnosis: altered mental status Activity: Resume your previous activity Non-emergency contact: Primary Care Provider Call non-emergency contact if: you have any medication questions Follow-up/Referrals: Philip Whitfield MD [Primary Care Provider] - Diet: Heart Healthy Diet Texture: Easy to Chew Addtl Attending Provider Instructions: recommend followup with PCP in 1-2 weeks. Continue miralax. If no BM in 2 days, increase to three times a day. Pending Studies at Discharge: No Stand-Alone Forms: ENJORE, Smoking Cessation Medications and DC Order Prescriptions: New donepezil 5 mg Tablet 5 mg PO QAM Qty: 30 0RF Continued digoxin 250 mcg (0.25 mg) tablet 250 mcg PO 1700 Qty: 30 11RF Eliquis 5 mg tablet 5 mg PO BID Qty: 60 11RF cholecalciferol (vitamin D3) [Vitamin D3] 2,000 unit capsule 2,000 unit PO TID atorvastatin [Lipitor] 20 mg tablet 20 mg PO QAM multivitamin [Daily Multi-Vitamin] Tablet 1 tab PO PM ketoconazole 2 % cream 1 applic topical BID PRN (Reason: NEEDED) levothyroxine 75 mcg tablet 75 mcg PO DAILYBB guaifenesin [Mucinex] 600 mg tablet extended release 12hr 600 mg PO Q12 PRN (Reason: Congestion) fludrocortisone 0.1 mg tablet 0.1 mg PO BID melatonin 3 mg Tablet 9 mg PO HS PRN (Reason: Insomnia) fluticasone propionate 50 mcg/actuation [place],Suspension 1 spray INTRANASAL BID PRN (Reason: Congestion) sennosides [Senokot] 8.6 mg Tablet 17.2 mg PO QAM Qty: 60 0RF polyethylene glycol 3350 [Miralax] 17 gram/dose powder 17 gm PO QAM Qty: 1 0RF midodrine 2.5 mg tablet 2.5 mg PO QAM venlafaxine 75 mg capsule,extended release 24hr 75 mg PO QAM carbidopa-levodopa 25-100 mg tablet 2 tab PO QID clonazepam 1 mg tablet 1 mg PO HS Discharge Orders: Discharge Order (Routine); Ordered 03/23/24 Ordered By: Mayank Casarez Admission Data Admit Date/Time: 03/21/24 16:23 Attending Provider: Mayank Casarez Admit Provider: Jhonny Jay Primary Care Provider: Philip Whitfield Other Providers: Jhonny Jay; [facility]; Shashank Hastings Other Interventions: Discharge Summary Assessment (RN) Last Done: 03/23/24 15:04 Coding Level of Care Code 85962 INP/OBS DISCH >30 MIN Diagnoses Altered mental status R41.0 Altered mental status type: disorientation Parkinson's disease with neurogenic orthostatic hypotension G90.3 PAF (paroxysmal atrial fibrillation) I48.0 Hypertension I10 History of recurrent UTIs Z87.440
[2024-03-25 12:17] LABS: Babesia microti DNA Not Detected (Not Detected)
== END 2024-03-23 15:38 | disposition home or self-care (01) | DRG 57 ==
LOC: ED 13:00 → SUATTDRO 16:23 → 4W 16:23
DX: I48.0 Paroxysmal atrial fibrillation; G31.83 Neurocognitive disorder with Lewy bodies; Z79.890 Hormone replacement therapy; Z87.440 Personal history of urinary (tract) infections; G20.A1 Parkinson's disease without dyskinesia, without mention of fluctuations; R47.81 Slurred speech; Z11.52 Encounter for screening for COVID-19; Z85.828 Personal history of other malignant neoplasm of skin; F02.818 Dementia in other diseases classified elsewhere, unspecified severity, with other behavioral disturbance; K59.09 Other constipation; I95.1 Orthostatic hypotension; N40.0 Benign prostatic hyperplasia without lower urinary tract symptoms; Z66 Do not resuscitate; N31.2 Flaccid neuropathic bladder, not elsewhere classified; I10 Essential (primary) hypertension; Z79.01 Long term (current) use of anticoagulants; Z79.899 Other long term (current) drug therapy

== ENCOUNTER 2024-05-03 14:58 | Inpatient (IN) ==
[2024-05-03 15:42] LABS: Basophils # (auto) 0.02 K/uL (0.00-0.20); Basophils % (auto) 0.4 %; Eosinophils # (auto) 0.07 K/uL (0.00-0.50); Eosinophils % (auto) 1.5 %; Hemoglobin 12.4 g/dl (14.0-18.0); Immature Granulocytes # (auto) 0.01 K/uL (0.01-0.20); Immature Granulocytes % (auto) 0.2 %; Lymphocytes # (auto) 1.05 K/uL (1.20-3.40); Lymphocytes % (auto) 22.1 %; Mean Corpuscular Hemoglobin 29.7 pg (25.0-34.0); Mean Corpuscular Hgb Conc 32.6 g/dL (32.0-36.0); Mean Corpuscular Volume 90.9 fL (80.0-100.0); Monocytes # (auto) 0.41 K/uL (0.11-0.59); Monocytes % (auto) 8.6 %; Neutrophils # (auto) 3.19 K/uL (1.40-6.50); Neutrophils % (auto) 67.2 %; Platelet Count 162 K/uL (130-400); RDW Coefficient of Variation 13.5 % (11.5-14.5); RDW Standard Deviation 45.1 fL (36.4-46.3); Red Blood Count 4.18 M/uL (4.70-6.10); White Blood Count 4.75 K/ul (4.8-10.8)
[2024-05-03 15:58] LABS: Albumin Globulin Ratio 1.4 (0.9-2); Albumin Level 3.7 gm/dl (3.4-5.0); BUN Creatinine Ratio 22.2 (10-20); Calcium 8.9 mg/dl (8.6-10.3); Creatinine Clr Calc Pharmacy 69.7 ml/min; Est GFR (African American) 92.5 ml/min; Est GFR (Non-African American) 79.8 ml/min; Globulin 2.7 gm/dl (2.5-4.0); Potassium 3.6 mmol/L (3.5-5.1); Total Protein 6.4 gm/dl (6.0-8.3)
--- NOTE | 2024-05-03 16:12 | XRay Report ---
XR chest 1V portable HISTORY: hypotensive COMPARISON: Chest 03/21/2024. FINDINGS: Slightly rotated study. No pneumothorax. No pleural effusions. The heart is mildly enlarged . There are calcifications within the aortic knob. Left basilar linear densities remain stable and fa vor subsegmental atelectasis. No new focal lung consolidations to suggest a pneumonia. No evidence fo r bone edema. No acute fractures within the chest. IMPRESSION: 1. Stable mild cardiomegaly. 2. Left basilar linear densities persist and favor subsegmental atelectasis or scarring. A superimpos ed pneumonia would be difficult to exclude ACT 112: Negative or not required by law. Electronically signed by: Micha Cloud M.D. 05/03/2024 4:11 PM
[2024-05-03 16:13] LABS: INR 1.1 (0.9-1.1); Partial Thromboplastin Ratio 1.2; Partial Thromboplastin Time 31 Seconds (21-31); Prothrombin Time 11.9 Seconds (9.0-12.0)
--- NOTE | 2024-05-03 16:29 | Electrocardiogram Report ---
Test Reason : Blood Pressure : */* mmHG Vent. Rate : 52 BPM Atrial Rate : * BPM P-R Int : * ms QRS Dur : 90 ms QT Int : 436 ms P-R-T Axes : * -27 43 degrees QTcB Int : 405 ms Atrial fibrillation with slow ventricular response Abnormal ECG When compared with ECG of 21-Mar-2024 13:17, No significant change Confirmed by Gucci Mcelroy ([id number]) on 05/03/2024 4:29:45 PM Referred By: Confirmed By: Gucci Mcelroy
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
[2024-05-03] MEDS: SODIUM CHLORIDE 0.9% 1,000 ML IV SCH (16:43)
[2024-05-03] MEDS: SODIUM CHLORIDE 0.9% 500 ML IV ONE (16:46)
[2024-05-03 17:46] LABS: Thyroid Stimulating Hormone 0.96 uIu/ml (0.300-4.500)
--- NOTE | 2024-05-03 18:21 | CT Scan Report ---
CT SCAN OF THE ABDOMEN AND PELVIS WITHOUT IV CONTRAST CLINICAL HISTORY: Generalized weakness. Diarrhea. COMPARISON STUDY: Abdominal CT dated 02/16/2024. TECHNIQUE: CT scan of the abdomen and pelvis is performed from the lung bases to the proximal femora. Images are reviewed in the axial, sagittal, and coronal planes. IV contrast was not administered for this examination as per the referring clinician. Note that the examination was performed in signific antly suboptimal fashion without oral and IV contrast. There is also motion artifact, as well as stre ak artifact from the arms which could not be elevated above the abdomen. A dose lowering technique wa s utilized adhering to the principles of ALARA. CT DOSE: 1111.21 mGy.cm FINDINGS: Lung bases: The heart is mildly enlarged noting a small pericardial effusion. There are small left an d trace right pleural effusions with dependent atelectasis. Liver: The unenhanced liver is normal in size, contour, and attenuation. There is no intrahepatic morena iary ductal dilatation. Gallbladder: Unremarkable. Spleen: Normal in size and attenuation. Pancreas: The unenhanced pancreas is moderately atrophic and grossly unremarkable. Adrenal glands: Unremarkable. Kidneys: The unenhanced kidneys demonstrate mild cortical atrophy and are without hydronephrosis. The re are punctate bilateral nonobstructing renal calculi. No ureteral stone is seen. A 1.4 cm cyst is n oted in the right lower pole. Abdominal vasculature: The abdominal aorta is normal in course and caliber noting moderate atheroscle rotic calcification. Bowel: There is rectosigmoid fecal retention and moderate constipation. There is wall thickening of t he rectum and left colon with surrounding infiltration consistent with a nonspecific proctocolitis. N o bowel obstruction is seen. The appendix is not visualized. Peritoneum: There is no intraperitoneal free air or abdominal ascites. Lymphadenopathy: None. Pelvic viscera: The prostate gland is enlarged and heterogeneous. The bladder wall appears thickened/ trabeculated indicating chronic outlet obstruction. Skeletal structures: The skeletal structures are heterogeneously osteopenic. Moderate lumbosacral spo ndylosis is observed. Arthritic change is noted in the hips and sacroiliac joints. No lytic or blasti c lesions are seen. IMPRESSION: 1. Significantly suboptimal examination without oral and IV contrast. There is also streak and motion artifact. 2. There is rectosigmoid fecal retention and moderate constipation. 3. There is evidence of a nonspecific proctocolitis, which may be on a stercoral basis. Clinical adelaida elation will be essential. 4. Cardiomegaly and pleural effusions. 5. There are punctate nonobstructing bilateral renal calculi. 6. Additional findings as above. ACT 112: Negative or not required by law. Electronically signed by: Edi Wood M.D. 05/03/2024 6:19 PM
[2024-05-03 20:47] LABS: Appearance Urine Cloudy (Clear); Bacteria Urine Automated None Seen (None Seen); Bilirubin Urine Negative (Negative); Blood Urine Negative (Negative); Cast Urine Automated 0-2 /lpf (0-2); Color Urine Yellow; Epithelial Cell Urine Auto 0-2 /hpf (0-2); Glucose Urine UA Negative (Negative); Ketones Urine 1+ (Negative); Leukocyte Esterase Urine Negative (Negative); Nitrite Urine Negative (Negative); Protein Urine Trace (Negative); RBC Urine Automated 0-2 /hpf (0-2); Specific Gravity Urine 1.019 (1.000-1.030); Urobilinogen Urine Negative (Negative); WBC Urine Automated 0-5 /hpf (0-5); pH Urine 7.5 (4.5-7.5)
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
[2024-05-03 22:04] LABS: Magnesium 1.8 mg/dl (1.7-2.4)
[2024-05-03 22:04] LABS: Influenza A virus by PCR Negative (Neg); Influenza B virus by PCR Negative (Neg); RSV by PCR Negative (Neg); SARS CoV2 RNA(COVID-19) Ceph NEGATIVE (Negative)
[2024-05-03] MEDS: LACTATED RINGER'S 1,000 ML IV SCH (23:31)
[2024-05-03] MEDS: DIGOXIN 0.25 MG TAB PO SCH (23:56)
[2024-05-04] MEDS: MELATONIN 3 MG TAB PO PRN (00:01)
[2024-05-04] MEDS: SOD PHOSPHATE/SOD BIPHOSPHATE ENEMA 132 ML BTL PR STA (00:35)
[2024-05-04] MEDS: LEVOTHYROXINE SODIUM 75 MCG TABLET PO SCH (04:30)
[2024-05-04 06:02] LABS: Adenovirus F 40/41 PCR Not Detected (NotDetected); Astrovirus PCR Not Detected (NotDetected); Campylobacter PCR Not Detected (NotDetected); Cryptosporidium PCR Not Detected (NotDetected); Cyclospora cayetanensis PCR Not Detected (NotDetected); Entamoeba histolytica PCR Not Detected (NotDetected); Enteroaggregative E.coli(EAEC) Not Detected (NotDetected); Enterotoxigenic E.coli (ETEC) Not Detected (NotDetected); Giardia lamblia PCR Not Detected (NotDetected); Norovirus GI/GII PCR Not Detected (NotDetected); Plesiomonas shigelloides PCR Not Detected (NotDetected); Rotavirus A PCR Not Detected (NotDetected); Salmonella PCR Not Detected (NotDetected); Sapovirus PCR Not Detected (NotDetected); Shiga-like Toxin E.coli (STEC) Not Detected (NotDetected); Shigella/Enteroinvasive E.coli Not Detected (NotDetected); Vibrio cholerae PCR Not Detected (NotDetected); Vibrio species PCR Not Detected (NotDetected); Yersinia enterocolitica PCR Not Detected (NotDetected)
[2024-05-04 06:14] LABS: Enteropathogenic E.coli (EPEC) DETECTED (NotDetected)
[2024-05-04] MEDS: APIXABAN 5 MG TABLET PO SCH (08:07)
[2024-05-04] MEDS: CARBIDOPA/LEVODOPA 25/100MG TAB PO SCH (08:08)
[2024-05-04] MEDS: ATORVASTATIN 20 MG TAB PO SCH (08:08)
[2024-05-04] MEDS: FLUDROCORTISONE ACETATE 0.1 MG TAB PO SCH (08:08)
[2024-05-04] MEDS: VENLAFAXINE HCL XR 75 MG CAPXR PO SCH (08:08)
[2024-05-04 08:29] LABS: Basophils # (auto) 0.02 K/uL (0.00-0.20); Basophils % (auto) 0.4 %; Eosinophils # (auto) 0.16 K/uL (0.00-0.50); Eosinophils % (auto) 3.3 %; Hematocrit (blood only) 34.6 % (42.0-52.0); Hemoglobin 11.4 g/dl (14.0-18.0); Immature Granulocytes # (auto) 0.01 K/uL (0.01-0.20); Immature Granulocytes % (auto) 0.2 %; Lymphocytes # (auto) 1.15 K/uL (1.20-3.40); Lymphocytes % (auto) 23.8 %; Mean Corpuscular Hemoglobin 29.2 pg (25.0-34.0); Mean Corpuscular Hgb Conc 32.9 g/dL (32.0-36.0); Mean Corpuscular Volume 88.7 fL (80.0-100.0); Mean Platelet Volume 11.1 fL (9.4-12.4); Monocytes # (auto) 0.68 K/uL (0.11-0.59); Neutrophils # (auto) 2.82 K/uL (1.40-6.50); Neutrophils % (auto) 58.3 %; Platelet Count 131 K/uL (130-400); RDW Coefficient of Variation 13.1 % (11.5-14.5); RDW Standard Deviation 42.7 fL (36.4-46.3); White Blood Count 4.84 K/ul (4.8-10.8)
[2024-05-04] MEDS: LACTATED RINGER'S 1,000 ML IV SCH (08:30)
[2024-05-04] MEDS: MIDODRINE HCL 2.5 MG TAB PO SCH (08:31)
[2024-05-04 08:42] LABS: Albumin Globulin Ratio 1.6 (0.9-2); Albumin Level 3.4 gm/dl (3.4-5.0); BUN Creatinine Ratio 23.1 (10-20); Bilirubin,Total 1.2 mg/dl (0.2-1.0); Calcium 8.4 mg/dl (8.6-10.3); Creatinine Clr Calc Pharmacy 92.5 ml/min; Est GFR (African American) 105.7 ml/min; Est GFR (Non-African American) 91.2 ml/min; Globulin 2.1 gm/dl (2.5-4.0); Magnesium 1.7 mg/dl (1.7-2.4); Potassium 3.7 mmol/L (3.5-5.1); Total Protein 5.5 gm/dl (6.0-8.3)
[2024-05-04 08:43] LABS: INR 1.1 (0.9-1.1); Prothrombin Time 12.1 Seconds (9.0-12.0)
--- NOTE | 2024-05-04 15:12 | XRay Report ---
KUB CLINICAL HISTORY: Fecal impaction. FINDINGS: 2 AP, portable, supine abdominal radiographs are compared to study dated 03/23/2024 and corre lated with abdominal CT dated 05/03/2024. There is rectosigmoid fecal retention and mild to moderate c onstipation. There is no radiographic evidence of bowel obstruction. No intraperitoneal free air is s een on these supine images. There are no abnormal abdominal calcifications. The skeletal structures a re osteopenic and appear intact. There is moderate lumbosacral spondylosis. IMPRESSION: 1. Rectosigmoid fecal retention and only [id number] constipation. 2. There is no radiographic evidence of bowel obstruction. Electronically signed by: Edi Wood M.D. 05/04/2024 3:11 PM
--- NOTE | 2024-05-04 15:36 | XCELERA ---
[id number]
[2024-05-04] MEDS: DONEPEZIL HCL 10 MG TAB PO SCH (21:12)
[2024-05-04] MEDS: clonazePAM 1 MG TAB PO SCH (21:12)
--- NOTE | 2024-05-04 22:14 | Hospitalist Progress Note ---
Date of Service May 04, 2024 Assessment & Plan (1) Constipation: Plan: Admit to med telemetry Currently stable and nontoxic Appearing Present to the ED with multiple days of ongoing liquid stool Was started on Imodium last week due to concerns for possible diarrhea, now appears to have been overflow diarrhea from identified rectosigmoid fecal impaction on CT of the abdomen pelvis today Very similar presentation to previous admission with the patient required multiple enemas in addition to GoLytely We will start with IV hydration and enemas tonight, if no significant improvement tomorrow can consider addition of GoLytely Continue home Eliquis for DVT prophylaxis Heart healthy diet AM CBC, CMP, mag, PT/INR -will order a soap charly enema on 05/04 (2) Fatigue: Plan: Patient has been generally fatigued due to ongoing diarrhea leading to multiple nights of poor sleep Patient does have a mild cough on exam, will obtain COVID/influenza/RSV screen to rule out possible viral pathology Other signs of infection Fall/aspiration precautions Ongoing IV hydration (3) Atrial fibrillation with controlled ventricular rate: Plan: Currently stable ED reported multiple episodes of bradycardia into the 30s prior to admission, heart rate currently in the 50s Dig level within normal limits Potassium is stable will obtain mag level Will continue dig for now with holding parameters for heart less than 60 (4) Parkinson's disease with neurogenic orthostatic hypotension: Plan: Patient had complicated previous admission due to significant hypertension in supine position orthostatic hypotension with any standing or quick position changes Communication order placed to obtain blood pressure while supine position Continue carbidopa-levodopa Continue fludrocortisone and midodrine (5) Dementia: Plan: Currently stable Continue donepezil (6) PAF (paroxysmal atrial fibrillation): Plan: Currently stable Continue liquids Plan The patient was discussed Dr. Pennington at the time of the admission Admission and Anticipated Discharge Date Admission Date: May 03, 2024 Subjective 83 yo male reports no new symptoms. Physical Exam Physical Exam: Patient lying in bed. In no acute distress. Results & Data Results & Data Vital Signs (Past 12 Hours) Vital Signs Temp Pulse Pulse Resp BP Pulse Ox O2 Del Method 05/04/24 19:55 36.5 C 56 L 20 146/56 H 96 Room Air 05/04/24 15:40 36.8 C 64 16 153/63 H 96 Room Air 05/04/24 14:47 64 05/04/24 11:14 37.3 C 54 L 16 153/63 H 95 Room Air 05/04/24 10:37 Room Air PG Care Time/CCT Total # of Minutes Spent Total Time Spent with Patient: Total time spent is greater than 50% in coordination of care (as documented) at patient's floor/unit and/or counseling patient: Coding Level of Care Code 18878 SUB INP/OBS CARE 2/35MIN Diagnoses Constipation K59.00 Fatigue R53.83 Atrial fibrillation with controlled ventricular rate I48.91 Parkinson's disease with neurogenic orthostatic hypotension G90.3 Dementia F03.90 PAF (paroxysmal atrial fibrillation) I48.0
[2024-05-05 06:46] LABS: Basophils # (auto) 0.03 K/uL (0.00-0.20); Basophils % (auto) 0.7 %; Eosinophils % (auto) 4.7 %; Hematocrit (blood only) 32.3 % (42.0-52.0); Hemoglobin 10.9 g/dl (14.0-18.0); Immature Granulocytes # (auto) 0.01 K/uL (0.01-0.20); Immature Granulocytes % (auto) 0.2 %; Lymphocytes # (auto) 1.39 K/uL (1.20-3.40); Lymphocytes % (auto) 32.6 %; Mean Corpuscular Hemoglobin 29.9 pg (25.0-34.0); Mean Corpuscular Hgb Conc 33.7 g/dL (32.0-36.0); Mean Corpuscular Volume 88.7 fL (80.0-100.0); Mean Platelet Volume 11.2 fL (9.4-12.4); Monocytes # (auto) 0.66 K/uL (0.11-0.59); Monocytes % (auto) 15.5 %; Neutrophils # (auto) 1.98 K/uL (1.40-6.50); Neutrophils % (auto) 46.3 %; Platelet Count 132 K/uL (130-400); Red Blood Count 3.64 M/uL (4.70-6.10); White Blood Count 4.27 K/ul (4.8-10.8)
[2024-05-05 07:04] LABS: Anion Gap 4 (3-11); BUN Creatinine Ratio 18.5 (10-20); Blood Urea Nitrogen 12 mg/dl (6-23); Calcium 8.2 mg/dl (8.6-10.3); Carbon Dioxide 35 mmol/L (21-32); Chloride 101 mmol/L (98-107); Creatinine Clr Calc Pharmacy 91.4 ml/min; Est GFR (African American) 105.7 ml/min; Est GFR (Non-African American) 91.2 ml/min; Glucose 90 mg/dl (70-99(Fasting)); Potassium 3.1 mmol/L (3.5-5.1); Sodium 140 mmol/L (136-145)
[2024-05-05 07:10] LABS: Alanine Aminotransferase < 3 U/L (7-52); Albumin Globulin Ratio 1.4 (0.9-2); Albumin Level 3.3 gm/dl (3.4-5.0); Alkaline Phosphatase 69 U/L (34-104); Aspartate Aminotransferase 18 U/L (13-39); Globulin 2.4 gm/dl (2.5-4.0); Magnesium 1.7 mg/dl (1.7-2.4); Total Protein 5.7 gm/dl (6.0-8.3)
[2024-05-05 07:12] LABS: INR 1.1 (0.9-1.1); Prothrombin Time 12.3 Seconds (9.0-12.0)
[2024-05-05] MEDS: POTASSIUM CHLORIDE CRTAB 20 MEQ TABCR PO ONE (09:38)
[2024-05-05] MEDS: POLYETHYLENE (MIRALAX) 17 GM PACK PO SCH (09:38)
[2024-05-05] MEDS: DOCUSATE SODIUM 100 MG CAP PO SCH (09:38)
[2024-05-05] MEDS: LAVAGE SOLUTION 4000ML PO ONE (14:05)
--- NOTE | 2024-05-05 15:04 | Hospitalist Progress Note ---
Date of Service May 05, 2024 Assessment & Plan (1) Constipation: Plan: With fecal impaction. Now on scheduled dosing of Colace and MiraLAX. GoLytely today, May 05. (2) Fatigue: Plan: Supportive care. OT and PT while hospitalized (3) Atrial fibrillation with controlled ventricular rate: Plan: Actually he has chronic atrial fibrillation with slow ventricular rate at times. Blood pressure has remained stable. Digoxin has been discontinued. Telemetry (4) Parkinson's disease with neurogenic orthostatic hypotension: Plan: Stable. Supportive care. Continue current medical management (5) Dementia: Plan: Stable. Continue current medical management (6) PAF (paroxysmal atrial fibrillation): Plan: Slow ventricular rate. Blood pressure remained stable. Digoxin has been discontinued. Telemetry Plan Hopeful discharge back home within the next 24 to 48 hours Admission and Anticipated Discharge Date Admission Date: May 03, 2024 Subjective Alert. is at the bedside. Will initiate GoLytely therapy which worked for him in the past for the fecal impaction. He is on scheduled doses of Colace and MiraLAX. Oral potassium replacement ordered. He continues to have slow atrial fibrillation with stable blood pressure. Digoxin has been discontinued. Plan is for discharge back home within the next 24 to 48 hours Review of Systems 2 Review of Systems: Constitutionalno fever or chills ENTno blurred vision, no double vision, no epistaxis, no sore throat Respiratoryno cough, no wheezing, no shortness of breath Cardiacno palpitations, no chest pain, no syncope Duglas nausea, vomiting, melena, hematochezia. He is constipated with loose stools being passed around the fecal impaction GUno urinary retention, no urinary incontinence, no dysuria, no hematuria Musculoskeletalno joint pain, no muscle tenderness Skinno bruising, no rashes, no pruritus Neurono isolated weakness, no paresthesia. Generalized weakness Psychno depression, no anxiety Physical Exam 2 Physical Exam: General-alert. No fever HEENT-head atraumatic and normocephalic, pupils equal and reactive to light, extraocular muscles intact Neck-no lymphadenopathy or thyromegaly, trachea midline Chest-clear to auscultation. No rales, wheezing or rhonchi Cardiac-regular rate and rhythm, normal S1 and S2 Abdomen-normal bowel sounds, no hepatosplenomegaly. Distended abdomen Extremities-no cyanosis, clubbing, or edema Neuro-cranial nerves II through XII intact, motor and sensory function within normal limits, strength symmetrical with generalized weakness, no focal deficits Psych-flat affect Results & Data Results & Data Vital Signs (Past 12 Hours) Vital Signs Temp Pulse Pulse Resp BP Pulse Ox O2 Del Method 05/05/24 14:52 48 L 05/05/24 12:32 36.3 C L 46 L 16 132/66 95 Room Air 05/05/24 08:33 36.3 C L 57 L 16 155/81 H 97 Room Air 05/05/24 07:54 Room Air 05/05/24 07:24 43 L 05/05/24 03:48 36.6 C 59 L 20 165/77 H 95 Room Air Laboratory Results 05/05/24 05:58 05/05/24 05:58 PG Care Time/CCT Total # of Minutes Spent Total Time Spent with Patient: Total time spent is greater than 50% in coordination of care (as documented) at patient's floor/unit and/or counseling patient: Coding Level of Care Code 46149 SUB INP/OBS CARE 3/50MIN Diagnoses Constipation K59.00 Fatigue R53.83 Atrial fibrillation with controlled ventricular rate I48.91 Parkinson's disease with neurogenic orthostatic hypotension G90.3 Dementia F03.90 PAF (paroxysmal atrial fibrillation) I48.0
--- NOTE | 2024-05-05 16:56 | XRay Report ---
XR chest 1V portable CLINICAL HISTORY: hypoxia TECHNIQUE: Single frontal radiograph of the chest was obtained. Comparison: Comparison is made to chest radiograph 05/03/2024 FINDINGS: No lines and tubes are seen. Cardiomegaly is noted. The aortic arch is calcified. Left retrocardiac a irspace opacity is seen. No evidence of pleural effusion or pneumothorax. IMPRESSION: Left retrocardiac opacity is seen. This may represent atelectasis, pneumonia, and/or aspiration. ACT 112: Negative or not required by law. Electronically signed by: Philip Hinton M.D. 05/05/2024 4:55 PM
[2024-05-06 06:42] LABS: BUN Creatinine Ratio 17.2 (10-20); Calcium 8.3 mg/dl (8.6-10.3); Creatinine Clr Calc Pharmacy 92.3 ml/min; Est GFR (African American) 106.4 ml/min; Est GFR (Non-African American) 91.8 ml/min; Potassium 3.3 mmol/L (3.5-5.1)
[2024-05-06] MEDS: ALBUT/IPRATROP 3MG/0.5MG NEB 3 ML VIAL NEB STA (07:53)
[2024-05-06] MEDS: POTASSIUM CHLORIDE CRTAB 20 MEQ TABCR PO ONE (09:52)
--- NOTE | 2024-05-06 15:15 | Hospitalist Progress Note ---
Date of Service May 06, 2024 Assessment & Plan (1) Constipation: Plan: With fecal impaction. Now on scheduled dosing of Colace and MiraLAX. GoLytely given on May 05. This did induce a bowel movement. Repeat abdominal pelvic CT scan today, May 06 (2) Fatigue: Plan: Supportive care. OT and PT while hospitalized (3) Atrial fibrillation with controlled ventricular rate: Plan: Actually he has chronic atrial fibrillation with slow ventricular rate at times. Blood pressure has remained stable. Digoxin has been discontinued. Telemetry (4) Parkinson's disease with neurogenic orthostatic hypotension: Plan: Stable. Supportive care. Continue current medical management (5) Dementia: Plan: Stable. Continue current medical management (6) PAF (paroxysmal atrial fibrillation): Plan: Slow ventricular rate at times. Blood pressure remained stable. Digoxin has been discontinued. Telemetry (7) Mucus plug in respiratory tract: Plan: This caused transient hypoxemia on May 05. Now resolved. Chest CT scan today, May 06 Plan Hopeful discharge back home tomorrow, May 07 Admission and Anticipated Discharge Date Admission Date: May 03, 2024 Subjective Alert. is at the bedside. He had transient hypoxia yesterday, May 05, from what appears to be a mucous plug which quickly resolved. Chest and abdomen CT scan ordered per 's request. He did have a bowel movement. Hopefully he can go home tomorrow, May 07. Oral potassium replacement continues Review of Systems 2 Review of Systems: Constitutionalno fever or chills ENTno blurred vision, no double vision, no epistaxis, no sore throat Respiratoryno cough, no wheezing, no shortness of breath Cardiacno palpitations, no chest pain, no syncope Duglas nausea, vomiting, melena, hematochezia. He is constipated with loose stools being passed around the fecal impaction GUno urinary retention, no urinary incontinence, no dysuria, no hematuria Musculoskeletalno joint pain, no muscle tenderness Skinno bruising, no rashes, no pruritus Neurono isolated weakness, no paresthesia. Generalized weakness Psychno depression, no anxiety Physical Exam 2 Physical Exam: General-alert. No fever HEENT-head atraumatic and normocephalic, pupils equal and reactive to light, extraocular muscles intact Neck-no lymphadenopathy or thyromegaly, trachea midline Chest-clear to auscultation. No rales, wheezing or rhonchi Cardiac-regular rate and rhythm, normal S1 and S2 Abdomen-normal bowel sounds, no hepatosplenomegaly. Distended abdomen Extremities-no cyanosis, clubbing, or edema Neuro-cranial nerves II through XII intact, motor and sensory function within normal limits, strength symmetrical with generalized weakness, no focal deficits Psych-flat affect Results & Data Results & Data Vital Signs (Past 12 Hours) Vital Signs Temp Pulse Pulse Resp BP Pulse Ox O2 Del Method 05/06/24 15:10 36.7 C 60 14 123/73 94 Room Air 05/06/24 14:01 61 05/06/24 11:07 36.4 C L 60 15 151/60 H 96 Room Air 05/06/24 07:58 Room Air 05/06/24 07:32 36.8 C 62 16 137/71 93 Room Air 05/06/24 07:03 66 05/06/24 03:35 37.0 C 75 18 120/62 91 Room Air Laboratory Results 05/05/24 05:58 05/06/24 05:42 PG Care Time/CCT Total # of Minutes Spent Total Time Spent with Patient: Total time spent is greater than 50% in coordination of care (as documented) at patient's floor/unit and/or counseling patient: Coding Level of Care Code 56199 SUB INP/OBS CARE 3/50MIN Diagnoses Constipation K59.00 Fatigue R53.83 Atrial fibrillation with controlled ventricular rate I48.91 Parkinson's disease with neurogenic orthostatic hypotension G90.3 Dementia F03.90 PAF (paroxysmal atrial fibrillation) I48.0 Mucus plug in respiratory tract T17.998A
--- NOTE | 2024-05-06 15:22 | CT Scan Report ---
CT SCAN OF THE CHEST WITHOUT IV CONTRAST CLINICAL HISTORY: Mucous plugging. COMPARISON STUDY: Chest x-ray dated 05/05/2024. Chest CT dated 02/17/2024. Abdominal CT dated 05/03/2024 . TECHNIQUE: CT scan of the thorax was performed from the thoracic inlet to the upper abdomen. Images are reviewed in the axial, sagittal, and coronal planes. IV contrast was not administered for this ex amination as per the referring clinician. A dose lowering technique was utilized adhering to the [facility] [place]. The examination is degraded by motion artifact, as well as by streak artifact from the arms which could not be elevated above the chest. CT DOSE: 2064.9 mGy.cm FINDINGS: Thyroid: Imaged portions of the thyroid gland are normal in size and attenuation. Thoracic aorta: The thoracic aorta is normal in caliber and demonstrates standard 3-vessel arch anato my. Heart: The heart is mildly enlarged noting a small pericardial effusion. The coronary arteries are de nsely calcified. There is diminished attenuation of the cardiac blood pool as compared to the myocard ium suggesting anemia. Lungs and pleural spaces: Evaluation of the lung parenchyma is degraded by motion artifact. Secretion s are noted in the trachea. There is the spleen/debris within the left lower lobe airways. There are small left and trace right pleural effusions with dependent atelectasis. There is dependent consolida tion of the left lung base and patchy groundglass consolidation at the right lung base. Mediastinum: Subcentimeter mediastinal lymph nodes are not pathologically enlarged by size criteria. Jessa: Not well assessed without IV contrast. Axillae: There is no axillary lymphadenopathy. Upper abdomen: Partially visualized upper abdominal viscera is within normal limits. Skeletal structures: The skeletal structures are osteopenic. Degenerative change and kyphoscoliosis i s noted in the thoracic spine. No lytic or blastic bony lesions are seen. IMPRESSION: 1. There is dependent consolidation at the left lung base and patchy groundglass consolidation at the right lung base. This is new from the 05/03/[address] and the appearance favors pneumonia/asp iration pneumonitis. Clinical correlation will be required and radiographic follow-up to resolution i s recommended. 2. Small left and trace right pleural effusions. 3. Cardiomegaly. 4. Additional findings as above. ACT 112: Negative or not required by law. Electronically signed by: Edi Wood M.D. 05/06/2024 3:20 PM
--- NOTE | 2024-05-06 17:40 | CT Scan Report ---
CT SCAN OF THE ABDOMEN AND PELVIS WITHOUT IV CONTRAST CLINICAL HISTORY: Constipation. COMPARISON STUDY: Abdominal CT dated 05/03/2024. TECHNIQUE: CT scan of the abdomen and pelvis is performed from the lung bases to the proximal femora. Images are reviewed in the axial, sagittal, and coronal planes. IV contrast was not administered for this examination as per the referring clinician. Note that the examination was performed in signific antly suboptimal fashion without oral and IV contrast. There is also motion artifact, as well as stre ak artifact from the arms which could not be elevated above the abdomen. A dose lowering technique wa s utilized adhering to the principles of ALARA. FINDINGS: Lung bases: The heart is mildly enlarged noting a small pericardial effusion. The coronary arteries a re densely calcified. There is diminished attenuation of the cardiac blood pool as compared to the my ocardium suggesting anemia. There are small left and trace right pleural effusions with dependent ate lectasis. Patchy airspace consolidation is seen at the right lung base. Liver: The unenhanced liver is normal in size, contour, and attenuation. There is no intrahepatic morena iary ductal dilatation. Gallbladder: Unremarkable. Spleen: Normal in size and attenuation. Pancreas: The unenhanced pancreas is moderately atrophic and grossly unremarkable. Adrenal glands: Unremarkable. Kidneys: The unenhanced kidneys demonstrate mild cortical atrophy and are without hydronephrosis. The re are punctate bilateral nonobstructing renal calculi. No ureteral stone is seen. A 1.4 cm cyst is n oted in the right lower pole. Abdominal vasculature: The abdominal aorta is normal in course and caliber noting moderate atheroscle rotic calcification. Bowel: Rectosigmoid fecal retention is improved from previous. Liquid stool seen throughout the colon . There is rectal wall thickening with surrounding infiltration. There is mild persistent wall thicke jose of the left colon. No bowel obstruction is seen. The appendix is not visualized. Peritoneum: There is no intraperitoneal free air or abdominal ascites. Lymphadenopathy: None. Pelvic viscera: The prostate gland is enlarged and heterogeneous. The bladder wall appears thickened/ trabeculated indicating chronic outlet obstruction. Skeletal structures: The skeletal structures are heterogeneously osteopenic. Moderate lumbosacral spo ndylosis is observed. Arthritic change is noted in the hips and sacroiliac joints. No lytic or blasti c lesions are seen. Soft tissues: There is asymmetric soft tissue edema in the left upper thigh. IMPRESSION: 1. Significantly suboptimal examination without oral and IV contrast. There is also streak and motion artifact. 2. Rectosigmoid fecal retention has improved from previous. Liquid stool is now seen throughout the c olon. 3. Again seen are findings of a nonspecific proctocolitis. Wall thickening of the descending colon ma y have modestly improved from previous Clinical correlation will be essential. 4. Cardiomegaly and pleural effusions. 5. Patchy airspace consolidation at the right lung base is new from previous and likely represents an infectious/inflammatory pneumonitis. Correlate clinically. 6. There are punctate nonobstructing bilateral renal calculi. 7. Additional findings as above. ACT 112: Negative or not required by law. Electronically signed by: Edi Wood M.D. 05/06/2024 5:39 PM
[2024-05-07 09:32] LABS: Basophils # (auto) 0.03 K/uL (0.00-0.20); Basophils % (auto) 0.7 %; Eosinophils # (auto) 0.22 K/uL (0.00-0.50); Eosinophils % (auto) 5.1 %; Hematocrit (blood only) 33.6 % (42.0-52.0); Hemoglobin 11.3 g/dl (14.0-18.0); Immature Granulocytes # (auto) 0.01 K/uL (0.01-0.20); Immature Granulocytes % (auto) 0.2 %; Lymphocytes # (auto) 1.65 K/uL (1.20-3.40); Lymphocytes % (auto) 37.9 %; Mean Corpuscular Hemoglobin 29.4 pg (25.0-34.0); Mean Corpuscular Hgb Conc 33.6 g/dL (32.0-36.0); Mean Corpuscular Volume 87.3 fL (80.0-100.0); Mean Platelet Volume 11.5 fL (9.4-12.4); Monocytes # (auto) 0.55 K/uL (0.11-0.59); Monocytes % (auto) 12.6 %; Neutrophils # (auto) 1.89 K/uL (1.40-6.50); Neutrophils % (auto) 43.5 %; Platelet Count 149 K/uL (130-400); RDW Coefficient of Variation 13.2 % (11.5-14.5); RDW Standard Deviation 42.1 fL (36.4-46.3); Red Blood Count 3.85 M/uL (4.70-6.10); White Blood Count 4.35 K/ul (4.8-10.8)
[2024-05-07 09:46] LABS: BUN Creatinine Ratio 19.4 (10-20); Calcium 8.5 mg/dl (8.6-10.3); Creatinine Clr Calc Pharmacy 87.4 ml/min; Est GFR (African American) 104.4 ml/min; Est GFR (Non-African American) 90.1 ml/min; Potassium 3.5 mmol/L (3.5-5.1)
[2024-05-07 11:26] VITALS: BP 164/79; PULSE 53; RESP 16; TEMP 97.3; O2SAT 97
--- NOTE | 2024-05-07 12:57 | Discharge Summary ---
Discharge Summary Date of Service May 07, 2024 Principal Dx & Hospital Course #1 = Principal Diagnosis (1) Constipation: With fecal impaction. Now on scheduled dosing of Colace and MiraLAX. GoLytely given on May 05. This did induce a bowel movement. Repeat abdominal pelvic CT scan done on May 06 looked better. (2) Fatigue: Supportive care. OT and PT while hospitalized (3) Atrial fibrillation with controlled ventricular rate: Actually he has chronic atrial fibrillation with slow ventricular rate at times. Blood pressure has remained stable. Digoxin has been discontinued. Heart rate has improved. Telemetry (4) Parkinson's disease with neurogenic orthostatic hypotension: Stable. Supportive care. Continue current medical management (5) Dementia: Stable. Continue current medical management (6) PAF (paroxysmal atrial fibrillation): Slow ventricular rate at times. Blood pressure remained stable. Digoxin has been discontinued. Telemetry (7) Mucus plug in respiratory tract: This caused transient hypoxemia on May 05. Now resolved. Chest CT scan completed on May 06 was reviewed. There is some material in the lower airways from apparent aspiration but there is no fever and no hypoxia. No indication for antibiotic therapy at this time. Plan Home today, May 07. Continue MiraLAX and Colace twice daily going forward. Admission HPI Per Admitting Provider Andrew is an 83-year-old male with PMH of paroxysmal atrial fibrillation (on Eliquis), urge incontinence, Parkinson's disease, dementia, orthostatic hypotension, LVH, basal cell carcinoma, nephrolithiasis, and uremic encephalopathy syndrome who presented to ED on 05/03/2024 due to concerns of worsening constipation over the past 72 hours. On arrival to the ED he was initially noted to be hypotensive at 78/50, bradycardic with heart rate in the 50s, and otherwise stable. Labs including CBC, CMP, TSH, and UA were unremarkable. Chest x-ray was read as stable cardiomegaly with left basilar linear densities persist in favor of subsegmental atelectasis or scarring. Superimposed pneumonia would be difficult to exclude. CT abdomen pelvis without contrast was read as significantly suboptimal due to lack of contrast. There is rectosigmoid fecal retention and moderate constipation. There is evidence of a nonspecific proctocolitis, which may be on a sterile coral basis. Cardiomegaly and pleural effusions. Punctate nonobstructing bilateral renal calculi. Prior to admission the patient was given 1.5 L NSS. Patient was lying in bed in no acute distress with his bedside, history was mainly obtained from the patient's . She states that last week the patient was having recurrent episodes of loose stool. They are recommended to start a trial of Imodium. Diarrhea initially improved but he started to have recurrent episodes of liquid stool yesterday. No recent fever or chills, no recent chest or abdominal pain, nausea/vomiting, urinary symptoms, and recent trauma. 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 Please refer to Dr. Pennington's attestation for any changes to the treatment plan Discharge Exam General-alert. No fever HEENT-head atraumatic and normocephalic, pupils equal and reactive to light, extraocular muscles intact Neck-no lymphadenopathy or thyromegaly, trachea midline Chest-clear to auscultation. No rales, wheezing or rhonchi Cardiac-regular rate and rhythm, normal S1 and S2 Abdomen-normal bowel sounds, no hepatosplenomegaly. Distended abdomen Extremities-no cyanosis, clubbing, or edema Neuro-cranial nerves II through XII intact, motor and sensory function within normal limits, strength symmetrical with generalized weakness, no focal deficits Psych-flat affect Discharge Plan Discharge Items Patient Disposition: Home - Self-Care Reason For Visit: CONSTIPATION, GENERALIZED WEAKNESS Discharge Diagnosis: Fecal impaction with constipation, atrial fibrillation with slow ventricular rate, mucous plugging with transient hypoxia Activity: Resume your previous activity Non-emergency contact: Primary Care Provider Call non-emergency contact if: your symptoms worsen Follow-up/Referrals: Philip Whitfield MD [Primary Care Provider] - (PLEASE CALL YOUR PRIMARY CARE PROVIDER TO SCHEDULE A HOSPITAL DISCHARGE FOLLOW-UP APPOINTMENT WITHIN 7-10 DAYS) Diet: Regular and Heart Healthy Addtl Attending Provider Instructions: Take MiraLAX and Colace twice daily on a regular basis to keep stools soft and moving. Digoxin has been discontinued due to slow heart rate which has resolved Pending Studies at Discharge: No Stand-Alone Forms: [employer], Smoking Cessation Medications and DC Order Prescriptions: New polyethylene glycol 3350 [Miralax] 17 gram Powder In Packet 17 g PO BID Qty: 60 0RF docusate sodium 100 mg Capsule 100 mg PO BID Qty: 60 0RF Continued Eliquis 5 mg tablet 5 mg PO BID Qty: 60 11RF cholecalciferol (vitamin D3) [Vitamin D3] 2,000 unit capsule 2,000 unit PO TID atorvastatin [Lipitor] 20 mg tablet 20 mg PO QAM multivitamin [Daily Multi-Vitamin] Tablet 1 tab PO PM ketoconazole 2 % cream 1 applic topical BID PRN (Reason: NEEDED) levothyroxine 75 mcg tablet 75 mcg PO DAILYBB guaifenesin [Mucinex] 600 mg tablet extended release 12hr 600 mg PO Q12 PRN (Reason: Congestion) fludrocortisone 0.1 mg tablet 0.1 mg PO BID melatonin 3 mg Tablet 9 mg PO HS PRN (Reason: Insomnia) fluticasone propionate 50 mcg/actuation [place],Suspension 1 spray INTRANASAL BID PRN (Reason: Congestion) sennosides [Senokot] 8.6 mg Tablet 17.2 mg PO QAM Qty: 60 0RF polyethylene glycol 3350 [Miralax] 17 gram/dose powder 17 gm PO QAM Qty: 1 0RF donepezil 10 mg tablet 10 mg PO HS Rx Instructions: His dose per carbidopa-levodopa 25-100 mg tablet 1 tab PO BID midodrine 2.5 mg tablet 2.5 mg PO QAM venlafaxine 75 mg capsule,extended release 24hr 75 mg PO QAM clonazepam 1 mg tablet 1 mg PO HS Discontinued digoxin 250 mcg (0.25 mg) tablet 250 mcg PO .1999 Discharge Orders: Discharge Order (Routine); Ordered 05/07/24 Ordered By: Jon Evans Admission Data Admit Date/Time: 05/03/24 21:02 Attending Provider: Jon Evans Admit Provider: Jude Pennington Primary Care Provider: Philip Whitfield Other Providers: Jude Pennington; Kimberli Mckeon; [facility],Hospital Hospital Stay Data Consultations 05/03/24 20:52 ED Decision to Admit Stat 05/04/24 05:06 Consult Cardiology Routine Diagnostic Imagining Performed 05/03/24 16:32 CT Abd and Pelvis [CT abd pelvis wo con] Stat 05/06/24 12:05 CT Abd and Pelvis [CT abd pelvis wo con] Urgent CT chest diagnostic wo con Urgent Pending Results Patient Have Any Pending Studies at Discharge: No Discharge Instructions Given to Patient (Per Discharging Provider) Take MiraLAX and Colace twice daily on a regular basis to keep stools soft and moving. Digoxin has been discontinued due to slow heart rate which has resolved Total Time Total Time Spent Total Time Spent (In Minutes): 45 minutes Coding Level of Care Code 85797 INP/OBS DISCH >30 MIN Diagnoses Constipation K59.00 Fatigue R53.83 Atrial fibrillation with controlled ventricular rate I48.91 Parkinson's disease with neurogenic orthostatic hypotension G90.3 Dementia F03.90 PAF (paroxysmal atrial fibrillation) I48.0 Mucus plug in respiratory tract T17.998A
== END 2024-05-07 14:51 | disposition home or self-care (01) | DRG 389 ==
LOC: ED 14:58 → 2W 21:02 → SUATTDRO 21:02 → 2W 22:19

== ENCOUNTER 2024-07-19 13:00 | Observation (INO) ==
[2024-07-19 13:35] LABS: Hematocrit (blood only) 37.4 % (42.0-52.0); Hemoglobin 12.5 g/dl (14.0-18.0); Mean Corpuscular Hemoglobin 29.8 pg (25.0-34.0); Mean Corpuscular Hgb Conc 33.4 g/dL (32.0-36.0); Mean Corpuscular Volume 89.3 fL (80.0-100.0); Mean Platelet Volume 10.7 fL (9.4-12.4); Platelet Count 158 K/uL (130-400); RDW Coefficient of Variation 13.6 % (11.5-14.5); RDW Standard Deviation 44.3 fL (36.4-46.3); Red Blood Count 4.19 M/uL (4.70-6.10); White Blood Count 3.95 K/ul (4.8-10.8)
[2024-07-19 13:36] LABS: iSTAT Creatinine 0.8 mg/dl (0.6-1.3); iSTAT Hemoglobin 12.6 g/dl (14.0-18.0); iSTAT Ionized Calcium 1.11 mmol/l (1.12-1.32); iSTAT Potassium 2.7 mmol/L (3.3-5.0)
[2024-07-19 13:50] LABS: Alanine Aminotransferase 8 U/L (7-52); Albumin Globulin Ratio 1.3 (0.9-2); Albumin Level 3.8 gm/dl (3.4-5.0); Alkaline Phosphatase 78 U/L (34-104); Anion Gap 6 (3-11); Aspartate Aminotransferase 18 U/L (13-39); BUN Creatinine Ratio 16.9 (10-20); Bilirubin,Total 1.2 mg/dl (0.2-1.0); Blood Urea Nitrogen 12 mg/dl (6-23); Calcium 9.1 mg/dl (8.6-10.3); Carbon Dioxide 38 mmol/L (21-32); Chloride 96 mmol/L (98-107); Glucose 96 mg/dl (70-99(Fasting)); Magnesium 1.9 mg/dl (1.7-2.4); Potassium 2.9 mmol/L (3.5-5.1); Sodium 140 mmol/L (136-145); Total Protein 6.8 gm/dl (6.0-8.3)
[2024-07-19 13:59] LABS: INR 1.1 (0.9-1.1); Partial Thromboplastin Ratio 1.2; Partial Thromboplastin Time 31 Seconds (21-31); Prothrombin Time 11.9 Seconds (9.0-12.0)
--- NOTE | 2024-07-19 14:12 | CT Scan Report ---
CT OF THE HEAD WITHOUT CONTRAST CLINICAL HISTORY: Neuro deficit, acute, stroke suspected COMPARISON STUDY: Head CT March 21, 2024. MRI of the brain March 22, 2024. CT DOSE: 703.85 mGy.cm TECHNIQUE: Helical axial images of the head were obtained without IV contrast. Automated exposure con trol was utilized for the study. A dose lowering technique was utilized adhering to the principles o f ALARA. FINDINGS: No acute intracranial hemorrhage, midline shift or mass effect is present. The ventricular system is unremarkable. The basal cisterns are patent. No extra-axial collections are present. White matter hypodensities are similar to prior exam and favor small vessel disease. Small amount of fluid within the bilateral mastoid air cells is present. There is mild sinus mucosal thickening. IMPRESSION: No acute intracranial findings. ACT 112: Negative or not required by law. Electronically signed by: Dax Pozo M.D. 07/19/2024 2:11 PM
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
--- NOTE | 2024-07-19 15:08 | XRay Report ---
XR chest 1V not portable CLINICAL HISTORY: stroke alert COMPARISON STUDY: Chest radiograph May 05, 2024. Chest CT May 06, 2024. FINDINGS: Patient is rotated. Skin folds project over the chest. There is no pneumothorax or pleural effusion. Left basilar opacity has significantly improved since prior exam. There is no radiographic evidence for pulmonary edema. Cardiomediastinal silhouette is stable. IMPRESSION: No acute cardiopulmonary findings. Rotated study. ACT 112: Negative or not required by law. Electronically signed by: Dax Pozo M.D. 07/19/2024 3:06 PM
--- NOTE | 2024-07-19 15:18 | Electrocardiogram Report ---
Test Reason : Blood Pressure : */* mmHG Vent. Rate : 82 BPM Atrial Rate : * BPM P-R Int : * ms QRS Dur : 94 ms QT Int : 400 ms P-R-T Axes : * 42 11 degrees QTcB Int : 467 ms Atrial fibrillation Abnormal ECG When compared with ECG of 03-May-2024 15:20, Vent. rate has increased by 30 bpm QRS axis Shifted right QT has lengthened Confirmed by Perez Wu ([id number]) on 07/19/2024 3:17:47 PM Referred By: REFERRED SELF Confirmed By: Perez Wu
[2024-07-19] MEDS: OPTIRAY 320 125ml IV ONE (15:24)
[2024-07-19] MEDS: SODIUM CHLORIDE 0.9% 1,000 ML IV ONE (15:44)
--- NOTE | 2024-07-19 15:57 | CT Scan Report ---
CT ANGIOGRAPHY OF THE NECK WITH CONTRAST CLINICAL HISTORY: Confusion COMPARISON STUDY: CTA of the neck September 16, 2021 per Technique: CT angiography of the carotid and vertebral arteries was obtained using Optiray and 3D rec onstruction on an independent workstation. NASCET criteria was utilized. Automated exposure control was utilized for the study. A dose lowering technique was utilized adhering to the principles of ALA RA. Findings: No significant abnormalities identified within visualized portions of the lung apices. Ther e is no cervical spine fracture. There is no cervical lymphadenopathy. There is moderate plaque withi n the proximal bilateral internal carotid arteries with without high-grade stenosis. There is mild na rrowing of the proximal bilateral internal carotid arteries which is similar to CT of September 16, 2021 . The vertebral arteries are patent. No dissection or aneurysm within the neck. IMPRESSION: 1. Moderate plaque within the proximal bilateral internal carotid arteries which results in less than 50% stenosis bilaterally, similar to prior CTA. 2. No high-grade stenosis within the neck. No aneurysm or dissection. ACT 112: Negative or not required by law. Electronically signed by: Dax Pozo M.D. 07/19/2024 3:56 PM
--- NOTE | 2024-07-19 16:00 | CT Scan Report ---
CT angio head w con CLINICAL HISTORY: 84 years-old Male with confusion. Acute strokelike symptoms with altered mental status COMPARISON STUDY: Head CT of same day TECHNIQUE: Following the IV administration of 117 cc of Optiray, CT angiogram of the brain was perfor med from the skull base to the vertex. Images are reviewed in the axial, sagittal, and coronal planes . 3-D MIPS images are created and assessed. IV contrast was administered without complication. All me asurements were obtained according to NASCET criteria. A dose lowering technique was utilized adherin g to the principles of ALARA. FINDINGS: CT ANGIOGRAM OF THE BRAIN: The imaged bilateral internal carotid arteries are patent. The bilateral anterior and middle cerebral arteries are also patent. The vertebrobasilar system and posterior cerebral arteries are widely arriaga nt. There is no aneurysm, high-grade stenosis, or proximal branch occlusion identified. Dural sinuses appear patent. IMPRESSION: Unremarkable CTA of the head. ACT 112: Negative or not required by law. The above report was generated using voice recognition software. It may contain grammatical, syntax o r spelling errors. Electronically signed by: Nilton Ryan M.D. 07/19/2024 3:59 PM
[2024-07-19 16:05] LABS: Appearance Urine Clear (Clear); Bilirubin Urine Negative (Negative); Blood Urine Negative (Negative); Color Urine Yellow; Glucose Urine UA Negative (Negative); Ketones Urine Negative (Negative); Leukocyte Esterase Urine Negative (Negative); Nitrite Urine Negative (Negative); Protein Urine Negative (Negative); Specific Gravity Urine 1.018 (1.000-1.030); Urobilinogen Urine Negative (Negative); pH Urine 7.5 (4.5-7.5)
[2024-07-19] MEDS: POTASSIUM CHLORIDE CRTAB 20 MEQ TABCR PO STA ×2 (16:29→18:36)
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
[2024-07-19 17:23] LABS: Adenovirus PCR Not Detected (NotDetected); Bordetella parapertussis PCR Not Detected (NotDetected); Bordetella pertussis PCR Not Detected (NotDetected); Chlamydia pneumoniae PCR Not Detected (NotDetected); Coronavirus 229E PCR Not Detected (NotDetected); Coronavirus CoV-2 (COVID19)PCR Not Detected (NotDetected); Coronavirus HKU1 PCR Not Detected (NotDetected); Coronavirus NL63 PCR Not Detected (NotDetected); Coronavirus OC43PCR Not Detected (NotDetected); Human Metapneumovirus PCR Not Detected (NotDetected); Influenza A PCR Not Detected (NotDetected); Influenza B PCR Not Detected (NotDetected); Mycoplasma pneumoniae PCR Not Detected (NotDetected); Parainfluenza Virus 1 PCR Not Detected (NotDetected); Parainfluenza Virus 2 PCR Not Detected (NotDetected); Parainfluenza Virus 3 PCR Not Detected (NotDetected); Parainfluenza Virus 4 PCR Not Detected (NotDetected); Respiratory Syncytial VirusPCR Not Detected (NotDetected); Rhinovirus/Enterovirus PCR Not Detected (NotDetected)
[2024-07-19] MEDS: MELATONIN 3 MG TAB PO PRN (23:19)
[2024-07-19] MEDS: DOCUSATE SODIUM 100 MG CAP PO SCH (23:19)
[2024-07-19] MEDS: DONEPEZIL HCL 10 MG TAB PO SCH (23:20)
[2024-07-19] MEDS: CARBIDOPA/LEVODOPA 25/100MG TAB PO SCH (23:21)
[2024-07-19] MEDS: FLUDROCORTISONE ACETATE 0.1 MG TAB PO SCH (23:21)
[2024-07-19] MEDS: APIXABAN 5 MG TABLET PO SCH (23:22)
[2024-07-20 06:07] LABS: Hematocrit (blood only) 35.6 % (42.0-52.0); Hemoglobin 11.8 g/dl (14.0-18.0); Mean Corpuscular Hemoglobin 29.7 pg (25.0-34.0); Mean Corpuscular Hgb Conc 33.1 g/dL (32.0-36.0); Mean Corpuscular Volume 89.7 fL (80.0-100.0); Mean Platelet Volume 11.1 fL (9.4-12.4); Platelet Count 146 K/uL (130-400); RDW Coefficient of Variation 13.4 % (11.5-14.5); RDW Standard Deviation 44.3 fL (36.4-46.3); Red Blood Count 3.97 M/uL (4.70-6.10); White Blood Count 4.41 K/ul (4.8-10.8)
[2024-07-20] MEDS: LEVOTHYROXINE SODIUM 75 MCG TABLET PO SCH (06:25)
[2024-07-20 06:34] LABS: BUN Creatinine Ratio 14.9 (10-20); Calcium 8.9 mg/dl (8.6-10.3); Chol HDL Ratio 2.8 (0-5); Creatinine Clr Calc Pharmacy 85.1 ml/min; Magnesium 1.9 mg/dl (1.7-2.4); Potassium 3.2 mmol/L (3.5-5.1)
[2024-07-20 06:45] LABS: Thyroid Stimulating Hormone 1.42 uIu/ml (0.300-4.500)
[2024-07-20 07:57] LABS: Estimated Average Glucose 120 mg/dl; Hemoglobin A1C 5.8 % (4.5-5.6)
[2024-07-20] MEDS: CHOLECALCIFEROL 25 MCG (1000 UNITS) TAB PO SCH (09:06)
[2024-07-20] MEDS: VENLAFAXINE HCL XR 75 MG CAPXR PO SCH (09:06)
[2024-07-20] MEDS: ATORVASTATIN 20 MG TAB PO SCH (09:06)
[2024-07-20] MEDS: MIDODRINE HCL 2.5 MG TAB PO SCH (09:07)
[2024-07-20] MEDS: POLYETHYLENE (MIRALAX) 17 GM PACK PO SCH (09:13)
[2024-07-20] MEDS: SENNA 8.6 MG TAB PO SCH (09:13)
[2024-07-20] MEDS: POTASSIUM CHLORIDE CRTAB 20 MEQ TABCR PO STA (09:13)
[2024-07-20] MEDS: LORazepam 2 MG/1 ML VIAL IV ONE (11:05)
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
[2024-07-20] MEDS: LORazepam 0.5 MG TAB PO STA (11:28)
[2024-07-20] MEDS ORDERED: Nursing to Pharmacy Communication SCH (12:15)
[2024-07-20] MEDS: GADOBUTROL 65ML VIAL IV ONE (12:37)
--- NOTE | 2024-07-20 13:34 | Magnetic Resonance Report ---
MR brain wo/w con HISTORY: 84 years-old Male Confusion, expressive aphasia acutely altered mental status COMPARISON: CTA head 07/19/2024, brain MRI 03/22/2024 TECHNIQUE: Multiplanar multisequence MRI of the brain was obtained with and without IV contrast. FINDINGS: No acute intracranial hemorrhage, midline shift, or acute infarct. Mild mucosal thickening of the par anasal sinuses. Small mastoid effusions. The ventricles and sulci demonstrate mild age-related involu tional changes. Scattered foci of T2 hyperintensity seen within the periventricular and subcortical w caesar matter are nonspecific but suggestive of mild microvascular ischemic changes. The major vascular flow voids at the skull base are well-maintained. Small lipoma within the high convexity of the scal p, unchanged. The previously noted 3 mm enhancing nodule abutting the left internal auditory canal is not well seen on today's study. No abnormal enhancement IMPRESSION: 1. No acute intracranial abnormality. No acute or subacute infarct. 2. Involutional changes with chronic microvascular ischemic disease. 3. No abnormal enhancement. ACT 112: Negative or not required by law. The above report was generated using voice recognition software. It may contain grammatical, syntax o r spelling errors. Electronically signed by: Nilton Ryan M.D. 07/20/2024 1:33 PM
--- NOTE | 2024-07-20 13:37 | Hospitalist Progress Note ---
Date of Service July 20, 2024 Assessment & Plan (1) Confusion: Plan: patient with recent confusion, expressive aphasia auditory hallucination, and increased jerking movements likely secondary to recent medication change vs hypokalemia Unlikely to be TIA Medication change may be the most likely cause. Neurology on board. Resume clonazepam. Discontinue oxcarbazepine CT head, CTA head, neck CTA, MRI brain were all negative Confusion is improving Will monitor overnight and likely discharge tomorrow provided hypokalemia improved and mentation continues to improve (2) Parkinson's disease: Plan: History of Parkinson's disease with orthostatic hypotension - Recent medication change as per above - Continue with carbidopa levodopa, midodrine and fludrocortisone as needed for hypotension (3) Hypokalemia: Plan: - K 2.7 - Given 40 mEq p.o. in ER, additional 40 mEq p.o. on admission Replace again this morning - Mg 1.9 No etiology found Medications reviewed Nutritional deficiencies could be a possibility Will discharge on p.o. potassium (4) Atrial fibrillation: Plan: previous history of chronic A fib - EKG on admission showed a fib, rate 82 - recent TSH WNL - Anticoagulated with Eliquis - was discontinued on digoxin during previous admission - Continue to monitor on Telemetry (5) Hypertension: Plan: elevated on admission - Not on any medications at home - Hold midodrine and fludrocortisone if SBP greater than 140 (6) Chronic constipation: Plan: - continue with home bowel regimen; Colace, senokot, MiraLAX daily Plan Chronic stable diagnoses: Hypothyroidism continue levothyroxine dementia continue with donepezil Anxiety/ Depression - continue venlafaxine and melatonin HLD - continue atorvastatin urinary incontinence continue with [place] catheter VTE ppx: SCDs Diet: Minced and moist, liquid nectar Code status: DNR/DNI Admission and Anticipated Discharge Date Admission Date: July 19, 2024 Subjective Patient was seen at 10:15 AM. was at the bedside. She stated that the jerking movements have improved. His confusion seems to be improved as well. Review of Systems Review of Systems: All systems reviewed & are unremarkable except as noted in Subjective Physical Exam Physical Exam: General: Awake, conversant. Frail looking elderly man Heart: S1, S2/regular rate and rhythm, no murmur rubs or gallops Lungs: Clear to auscultation bilaterally. Normal effort Abdomen: Soft/nontender/nondistended. No hepatosplenomegaly Extremities: No clubbing/cyanosis. No edema Behavior: Appropriate, cooperative Results & Data Results & Data Vital Signs (Past 12 Hours) Vital Signs Temp Pulse Pulse Resp BP Pulse Ox O2 Del Method 07/20/24 11:40 36.7 C 86 17 164/97 H 98 Room Air 07/20/24 08:16 80 07/20/24 07:39 36.7 C 83 17 155/94 H 96 Room Air 07/20/24 03:53 36.6 C 82 16 152/92 H 97 Room Air Laboratory Results Abnormal lab results 07/19/24 07/20/24 Range/Units 13:16 05:31 WBC 4.41 L (4.8-10.8) K/ul RBC 3.97 L (4.70-6.10) M/uL Hgb 11.8 L (14.0-18.0) g/dl Hct 35.6 L (42.0-52.0) % Potassium 2.9 L 3.2 L (3.5-5.1) mmol/L Chloride 96 L (98-107) mmol/L Carbon Dioxide 38 H 35 H (21-32) mmol/L Hemoglobin A1c 5.8 H (4.5-5.6) % Total Bilirubin 1.2 H (0.2-1.0) mg/dl PG Care Time/CCT Total # of Minutes Spent Total Time Spent with Patient: Total time spent is greater than 50% in coordination of care (as documented) at patient's floor/unit and/or counseling patient: Coding Level of Care Code 07724 SUB INP/OBS CARE 2/35MIN Diagnoses Confusion R41.0 Parkinson's disease G20 Hypokalemia E87.6 Atrial fibrillation I48.91 Hypertension I10 Chronic constipation K59.09
[2024-07-20] MEDS: clonazePAM 1 MG TAB PO SCH ×2 (19:00→20:09)
[2024-07-21 06:31] LABS: Hematocrit (blood only) 34.2 % (42.0-52.0); Hemoglobin 11.5 g/dl (14.0-18.0); Mean Corpuscular Hemoglobin 29.6 pg (25.0-34.0); Mean Corpuscular Hgb Conc 33.6 g/dL (32.0-36.0); Mean Corpuscular Volume 88.1 fL (80.0-100.0); Mean Platelet Volume 10.8 fL (9.4-12.4); Platelet Count 142 K/uL (130-400); RDW Coefficient of Variation 13.4 % (11.5-14.5); RDW Standard Deviation 43.3 fL (36.4-46.3); Red Blood Count 3.88 M/uL (4.70-6.10); White Blood Count 5.25 K/ul (4.8-10.8)
[2024-07-21 06:46] LABS: BUN Creatinine Ratio 16.2 (10-20); Calcium 8.8 mg/dl (8.6-10.3); Creatinine Clr Calc Pharmacy 77.1 ml/min; Potassium 3.1 mmol/L (3.5-5.1)
--- NOTE | 2024-07-21 11:17 | Discharge Summary ---
Date of Service July 21, 2024 Admission HPI Per Admitting Provider Patient seen at bedside with his . Patient is an 84-year-old male with a past medical history of hypertension, atrial fibrillation on Eliquis, chronic constipation, Parkinson's with orthostatic hypotension. he presents today due to TIA-like symptoms that began last night. As per his he began with confusion and expressive aphasia yesterday. He also had an auditory hallucination last night, which he has had once in the past whenever he had aspiration pneumonia. The expressive aphasia has resolved. He has continued confusion and jerking movements. He seems to be forgetting more short term scenarios. He also has had an appropriate pain for the past 24 hours as per . He does have a history of very mild dementia. As per the patient he has had a runny nose for the past 2 days and has felt weak and fatigued for a few months. The patient's has been taking his vital signs at home. His blood pressure has been elevated since last night trending between 177-195; baseline 140-155 SBP. He has had no fever and his O2 sats have been fine. He has had a recent medication change, [facility] and he was started on oxcarbazepine 1 week ago. He has had episodes like this in the past, but not as severe, when switching medications. He does have a history of aspiration pneumonia, he is on a moist and minced diet. He did have an episode of choking about 2 weeks ago in which his had to give him the Heimlich. Chest x-ray on admission is negative. Patient endorses feeling 'woozy'. Patient denies fever, headache, dizziness, lightheadedness, vision changes, cough, sputum production, dyspnea, dyspnea on exertion, chest pain, abdominal pain, nausea, vomiting, diarrhea, constipation, dysuria, hematuria, edema, numbness, tingling. he has a [place] cath 100% of the time due to urinary incontinence. His has noted minimal blood in his underwear the past few days which she believes is due to hemorrhoids. He does not use nicotine, drink alcohol, or use illicit drugs. He denies history of cancer, diabetes, previous VTE. He does not use oxygen at baseline. He took all of his home medications this morning including Eliquis. He wishes to be DNR/DNI at this time. Admission Exam Per Admitting Provider The patient is awake, alert and oriented 3, well developed and well nourished, normocephalic and atraumatic, in no acute distress. Non-toxic appearing. HEENT- EOMI, mucous membranes moist. Hearing grossly intact. Heart- Irregularly irregular rhythm. normal S1 and S2. No murmurs, rubs or gallops. Lungs-clear bilaterally, no respiratory distress, no accessory muscle use. Abdomen-normal bowel sounds and soft. No ascites noted. Non-tender. Extremities- no clubbing, cyanosis, or edema. Strength 5/5 on all extremities, 4/5 on the left extremities; chronic due to Parkinson's. Psychiatric-normal affect. Principal Diagnosis Metabolic encephalopathy that is likely medication related. Oxcarbazepine discontinued. Klonopin resumed Hypokalemia Parkinson's disease Discharge Exam General: Awake, conversant. Frail looking elderly man Heart: S1, S2/regular rate and rhythm, no murmur rubs or gallops Lungs: Clear to auscultation bilaterally. Normal effort Abdomen: Soft/nontender/nondistended. No hepatosplenomegaly Extremities: No clubbing/cyanosis. No edema Behavior: Appropriate, cooperative Discharge Data Allergies Allergy/AdvReac Type Severity Reaction Status Date / Time No Known Allergies Allergy Verified 07/19/24 16:24 Consultations 07/19/24 16:21 ED Decision to Admit Stat 07/19/24 18:49 Consult Neurology Routine Ordered Studies 07/19/24 13:08 CT head/brain wo con Stat 07/19/24 14:19 CT angio head w con Stat CT angio neck with con Stat 07/20/24 11:15 MR brain wo/w con Routine Hospital Course (1) Confusion: patient with recent confusion, expressive aphasia auditory hallucination, and increased jerking movements likely secondary to recent medication change vs hypokalemia Unlikely to be TIA Medication change may be the most likely cause. Neurology on board. Resumed clonazepam. Discontinued oxcarbazepine CT head, CTA head, neck CTA, MRI brain were all negative Confusion is improving overall (2) Parkinson's disease: History of Parkinson's disease with orthostatic hypotension - Recent medication change as per above - Continue with carbidopa levodopa, midodrine and fludrocortisone as needed for hypotension (3) Hypokalemia: - K 2.7 on admission - Given 40 mEq p.o. in ER, additional 40 mEq p.o. on admission Replace again this morning - Mg 1.9 No etiology found Medications reviewed Nutritional deficiencies could be a possibility Will discharge on p.o. potassium (4) Atrial fibrillation: previous history of chronic A fib - EKG on admission showed a fib, rate 82 - recent TSH WNL - Anticoagulated with Eliquis - was discontinued on digoxin during previous admission - Continue to monitor on Telemetry (5) Hypertension: elevated on admission - Not on any medications at home - Hold midodrine and fludrocortisone if SBP greater than 140 (6) Chronic constipation: - continue with home bowel regimen; Colace, senokot, MiraLAX daily Plan Chronic stable diagnoses: Hypothyroidism continue levothyroxine dementia continue with donepezil Anxiety/ Depression - continue venlafaxine and melatonin HLD - continue atorvastatin urinary incontinence continue with [place] catheter VTE ppx: SCDs Diet: Minced and moist, liquid nectar Code status: DNR/DNI Total Time Total Time Spent Total Time Spent (In Minutes): 35 Discharge Plan Discharge Items Patient Disposition: Home - Self-Care Reason For Visit: TIA SX Discharge Diagnosis: Metabolic encephalopathy that is likely medication related. Oxcarbazepine discontinued. Klonopin resumed Hypokalemia Parkinson's disease Activity: Resume your previous activity Non-emergency contact: Primary Care Provider Call non-emergency contact if: you have any medication questions Follow-up/Referrals: Wes Alvarado MD [Physician] - (Neurology office will reach out to schedule follow up apt) Philip Whitfield MD [Primary Care Provider] - ([facility] will be calling patient back with appointment) Diet: Regular Diet Texture: Mechanical soft (ground) Liquid Consistency: Honey thick Addtl Attending Provider Instructions: Advised to follow-up with PCP in 1 week Advised to follow-up with neurology in 2 to 3 weeks Pending Studies at Discharge: No Stand-Alone Forms: My [employer] Medications and DC Order Prescriptions: New clonazepam 1 mg Tablet 1 mg PO HS 30 Days Qty: 30 0RF potassium chloride 20 mEq tablet extended release 20 meq PO DAILY 30 Days Qty: 30 0RF Continued Eliquis 5 mg tablet 5 mg PO BID Qty: 60 11RF cholecalciferol (vitamin D3) [Vitamin D3] 2,000 unit capsule 2,000 unit PO TID atorvastatin [Lipitor] 20 mg tablet 20 mg PO QAM multivitamin [Daily Multi-Vitamin] Tablet 1 tab PO PM ketoconazole 2 % cream 1 applic topical BID PRN (Reason: NEEDED) levothyroxine 75 mcg tablet 75 mcg PO DAILYBB fludrocortisone 0.1 mg tablet 0.1 mg PO BID melatonin 3 mg Tablet 9 mg PO HS PRN (Reason: Insomnia) fluticasone propionate 50 mcg/actuation [place],Suspension 1 spray INTRANASAL BID PRN (Reason: Congestion) sennosides [Senokot] 8.6 mg Tablet 17.2 mg PO QAM Qty: 60 0RF polyethylene glycol 3350 [Miralax] 17 gram/dose powder 17 gm PO QAM Qty: 1 0RF donepezil 10 mg tablet 10 mg PO HS Rx Instructions: His dose per carbidopa-levodopa 25-100 mg tablet 1 tab PO BID docusate sodium 100 mg Capsule 100 mg PO BID Qty: 60 0RF midodrine 2.5 mg tablet 2.5 mg PO QAM Rx Instructions: been being held due to bp venlafaxine 75 mg capsule,extended release 24hr 75 mg PO QAM Ensure Liquid 1 ea PO DAILY Discontinued oxcarbazepine 150 mg Tablet 150 mg PO BID Discharge Orders: Discharge Order (Routine); Ordered 07/21/24 Ordered By: Brandy Strange Admission Data Admit Date/Time: 07/19/24 17:59 Attending Provider: Brandy Strange Admit Provider: Endy Burris Primary Care Provider: Philip Whitfield Other Providers: Endy Burris; Wes Alvarado; [facility]
[2024-07-21 12:37] VITALS: BP 163/88; PULSE 74; RESP 20; TEMP 98.4; O2SAT 95
== END 2024-07-21 13:17 | disposition home or self-care (01) ==
LOC: 4W 13:00 → ED 13:00 → SUATTDRO 17:59 → 4W 19:54

== ENCOUNTER 2024-08-31 13:04 | Observation (INO) ==
[2024-08-31 13:45] LABS: Basophils # (auto) 0.04 K/uL (0.00-0.20); Basophils % (auto) 0.9 %; Eosinophils # (auto) 0.29 K/uL (0.00-0.50); Eosinophils % (auto) 6.4 %; Hematocrit (blood only) 35.1 % (42.0-52.0); Hemoglobin 11.6 g/dl (14.0-18.0); Lymphocytes # (auto) 1.31 K/uL (1.20-3.40); Lymphocytes % (auto) 29.1 %; Mean Corpuscular Volume 90.7 fL (80.0-100.0); Mean Platelet Volume 11.2 fL (9.4-12.4); Monocytes % (auto) 6.7 %; Neutrophils # (auto) 2.56 K/uL (1.40-6.50); Neutrophils % (auto) 56.9 %; Platelet Count 177 K/uL (130-400); RDW Standard Deviation 46.8 fL (36.4-46.3); Red Blood Count 3.87 M/uL (4.70-6.10)
[2024-08-31] MEDS: SODIUM CHLORIDE 0.9% 500 ML IV ONE (14:17)
--- NOTE | 2024-08-31 14:27 | XRay Report ---
XR chest 1V portable HISTORY: 84 years-old Male syncope COMPARISON: 07/19/2024 TECHNIQUE: AP view the chest FINDINGS: Cardiac silhouette is enlarged. Layering left greater than right pleural effusions with left basilar consolidation again noted. No pneumothorax or overt pulmonary edema. Bones appear grossly intact. IMPRESSION: 1. Cardiomegaly without overt pulmonary edema. 2. Left greater than right pleural effusions with mild left basilar consolidation. ACT 112: Negative or not required by law. The above report was generated using voice recognition software. It may contain grammatical, syntax o r spelling errors. Electronically signed by: Nilton Ryan M.D. 08/31/2024 2:25 PM
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
[2024-08-31 15:19] LABS: Alanine Aminotransferase < 3 U/L (7-52); Albumin Globulin Ratio 1.3 (0.9-2); Albumin Level 3.7 gm/dl (3.4-5.0); Alkaline Phosphatase 84 U/L (34-104); Anion Gap 3 (3-11); Aspartate Aminotransferase 16 U/L (13-39); Bilirubin,Total 1.1 mg/dl (0.2-1.0); Blood Urea Nitrogen 18 mg/dl (6-23); Calcium 8.6 mg/dl (8.6-10.3); Carbon Dioxide 37 mmol/L (21-32); Chloride 102 mmol/L (98-107); Globulin 2.8 gm/dl (2.5-4.0); Glucose 104 mg/dl (70-99(Fasting)); Magnesium 1.8 mg/dl (1.7-2.4); Phosphorus 3.4 mg/dl (2.5-4.9); Potassium 3.6 mmol/L (3.5-5.1); Sodium 142 mmol/L (136-145); Total Protein 6.5 gm/dl (6.0-8.3)
[2024-08-31 15:25] LABS: Troponin I High Sensitivity 10.1 pg/ml (0-20)
[2024-08-31 15:33] LABS: Appearance Urine Cloudy (Clear); Bacteria Urine Automated None Seen (None Seen); Bilirubin Urine Negative (Negative); Blood Urine Negative (Negative); Cast Urine Automated 0-2 /lpf (0-2); Color Urine Yellow; Epithelial Cell Urine Auto 0-2 /hpf (0-2); Glucose Urine UA Negative (Negative); Ketones Urine Negative (Negative); Leukocyte Esterase Urine Negative (Negative); Nitrite Urine Negative (Negative); Protein Urine Trace (Negative); Specific Gravity Urine 1.018 (1.000-1.030); Urobilinogen Urine Negative (Negative); WBC Urine Automated 0-5 /hpf (0-5); pH Urine 6.5 (4.5-7.5)
[2024-08-31 15:34] LABS: Thyroid Stimulating Hormone 1.342 uIu/ml (0.300-4.500)
[2024-08-31 15:34] LABS: INR 1.1 (0.9-1.1); Partial Thromboplastin Ratio 1.2; Partial Thromboplastin Time 33 Seconds (21-31); Prothrombin Time 12.2 Seconds (9.0-12.0)
[2024-08-31 15:47] LABS: Calcium Oxalate Crystals Urine Present (None Prsent); Mucus Urine Present (None Prsent); RBC Urine Automated 0-2 /hpf (0-2)
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
[2024-08-31] MEDS ORDERED: ACETAMINOPHEN 325 MG TAB PO PRN (19:45)
[2024-08-31] MEDS ORDERED: MELATONIN 3 MG TAB PO PRN (19:45)
[2024-08-31] MEDS: CARBIDOPA/LEVODOPA 25/100MG TAB PO SCH (22:14)
[2024-08-31] MEDS: FLUDROCORTISONE ACETATE 0.1 MG TAB PO SCH (22:14)
[2024-08-31] MEDS: clonazePAM 1 MG TAB PO SCH (22:14)
[2024-08-31] MEDS: DONEPEZIL HCL 10 MG TAB PO SCH (22:15)
[2024-08-31] MEDS: CHOLECALCIFEROL 25 MCG (1000 UNITS) TAB PO SCH (22:15)
[2024-08-31] MEDS: APIXABAN 5 MG TABLET PO SCH (22:16)
[2024-08-31] MEDS: DOCUSATE SODIUM 100 MG CAP PO SCH (22:18)
[2024-08-31 22:34] VITALS: RESP 18
[2024-09-01 03:13] VITALS: O2SAT 96
[2024-09-01] MEDS: LEVOTHYROXINE SODIUM 75 MCG TABLET PO SCH (04:32)
--- NOTE | 2024-09-01 06:12 | Electrocardiogram Report ---
Test Reason : Blood Pressure : */* mmHG Vent. Rate : 99 BPM Atrial Rate : * BPM P-R Int : * ms QRS Dur : 96 ms QT Int : 344 ms P-R-T Axes : * 96 50 degrees QTcB Int : 441 ms Atrial fibrillation Rightward axis Abnormal ECG When compared with ECG of 19-Jul-2024 13:12, Nonspecific T wave abnormality no longer evident in Inferior leads Confirmed by Sánchez Jaimes ([id number]) on 09/01/2024 6:11:57 AM Referred By: Confirmed By: Sánchez Jaimes
[2024-09-01 07:24] VITALS: BP 145/80; TEMP 98.2
[2024-09-01 07:30] LABS: Basophils # (auto) 0.03 K/uL (0.00-0.20); Basophils % (auto) 0.4 %; Eosinophils # (auto) 0.34 K/uL (0.00-0.50); Eosinophils % (auto) 4.4 %; Hematocrit (blood only) 31.7 % (42.0-52.0); Hemoglobin 10.8 g/dl (14.0-18.0); Immature Granulocytes # (auto) 0.01 K/uL (0.01-0.20); Immature Granulocytes % (auto) 0.1 %; Lymphocytes # (auto) 1.31 K/uL (1.20-3.40); Lymphocytes % (auto) 16.9 %; Mean Corpuscular Hemoglobin 30.3 pg (25.0-34.0); Mean Corpuscular Hgb Conc 34.1 g/dL (32.0-36.0); Mean Platelet Volume 11.3 fL (9.4-12.4); Monocytes # (auto) 0.69 K/uL (0.11-0.59); Monocytes % (auto) 8.9 %; Neutrophils # (auto) 5.37 K/uL (1.40-6.50); Neutrophils % (auto) 69.3 %; Platelet Count 156 K/uL (130-400); RDW Coefficient of Variation 13.7 % (11.5-14.5); Red Blood Count 3.56 M/uL (4.70-6.10); White Blood Count 7.75 K/ul (4.8-10.8)
[2024-09-01 07:47] LABS: BUN Creatinine Ratio 22.4 (10-20); Calcium 8.5 mg/dl (8.6-10.3); Creatinine Clr Calc Pharmacy 75.7 ml/min; Magnesium 1.6 mg/dl (1.7-2.4); Potassium 3.1 mmol/L (3.5-5.1)
[2024-09-01] MEDS: ATORVASTATIN 20 MG TAB PO SCH (09:07)
[2024-09-01] MEDS: VENLAFAXINE HCL XR 75 MG CAPXR PO SCH (09:07)
[2024-09-01] MEDS: MIDODRINE HCL 2.5 MG TAB PO SCH (09:07)
[2024-09-01] MEDS: SENNA 8.6 MG TAB PO SCH (09:11)
[2024-09-01] MEDS: POLYETHYLENE (MIRALAX) 17 GM PACK PO SCH (09:11)
[2024-09-01] MEDS: IRON SUCROSE 300 MG in SODIUM CHLORIDE 0.9% 250 ML IV ONE (10:27)
[2024-09-01] MEDS: MAGNESIUM OXIDE 400 MG TAB PO SCH (10:27)
[2024-09-01] MEDS: POTASSIUM CHLORIDE CRTAB 20 MEQ TABCR PO STA (11:13)
--- NOTE | 2024-09-01 12:26 | Discharge Summary ---
Date of Service September 01, 2024 Admission HPI Per Admitting Provider Patient seen at bedside with his . Patient is an 84-year-old male with a past medical history of hypertension, atrial fibrillation on Eliquis, chronic constipation, Parkinson's with orthostatic hypotension. the following history was obtained by his at bedside. Patient's grandson also present as he had witnessed syncopal episodes as well. The patient typically has a few syncopal episodes due to hypotension every 6 months. In the past week he has had multiple episodes of syncope today. Every episode has been when his was transferring him with his chair, he had 1 episode that he passed out while laying in his chair. The patient's stated that his blood pressure has been fluctuating much more than normal. For example, 1 morning it was 157/67, so she held his midodrine. He then passed out when she was transferring him into the shower and she recorded a blood pressure in low 60s/mid 30s. After giving him 1 tablet of midodrine it increased to the 80s. Then after a second tablet of midodrine and increased up to 215, in which she gave him 0.1 of clonidine (he does not currently have this prescribed, was told medication that she had saved). she is concerned as the episodes have greatly increased over the past week and his blood pressure has never function this much before. She did state that he has been eating less due to an increase in fatigue. He currently only eats 2 meals and a snack a day, has had a recent recorded weight loss, and his PCP added Ensure shakes. He drinks about 4 tumblers of fluids a day, no decrease noted. He stated that he does not feel dizzy prior to passing out, he does not know when it is coming on. 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 She did note that his blood pressure drops every morning after he takes carbidopa levodopa and the medication does not seem to provide him any benefit, he had no changes when he started it. She is to arrange outpatient follow-up with neurology to address this. He did take his morning medications today, held a.m. midodrine and fludrocortisone. Admission Exam (Per Admitting) Constitutional The patient is awake, alert and oriented 3, well developed and well nourished, normocephalic and atraumatic, lying in bed and in no acute distress. HEENT--PERRL, EOMI, mucous membranes and oropharynx mildly dry Neck--supple. No JVD. No bruits. Thyroid normal, trachea midline, no adenopathy. Heart--normal S1 and S2. No murmurs, rubs or gallops. Lungs--clear bilaterally, no respiratory distress, no accessory muscle use. Abdomen--normal bowel sounds and soft. Extremities--no cyanosis or clubbing. No edema. Dermatologic--normal skin turgor, normal color, no abnormal lymph nodes, no rash. Neurologic--tremor and rigidity Rheumatologic--normal range of motion. Psychiatric--normal affect. Discharge Data Consultations 08/31/24 16:14 ED Decision to Admit Stat Hospital Course (1) Syncope: patient with several episodes of syncope a day x 1 week History of known orthostatic hypotension, hypotension recorded during episodes history of Parkinson's disease decreased p.o. intake due to fatigue - EKG showed a fib, rate 99; known history of - Troponin and pro-rajat negative - TSH WNL - no recent medication changes other than dc oxcarbazepine and restarted clonazepam on recent dc 07/21 - monitor on telemetry - secondary to orthostatic hypotension observe overnight to monitor BP closely - continue midodrine and fludrocortisone; -BP 140/80 (2) Orthostasis: see above (3) Iron deficiency anemia: Iron def anemia The patients is concerned about constipation with oral iron Will suggest biweekly IV iron infusion will give venofer today (4) Parkinson's disease: history of Parkinson's with orthostatic hypotension - Continue with carbidopa levodopa, clonazepam, midodrine, and fludrocortisone Patent's noted that his blood pressure does drop every morning after carbidopa levodopa, does not see benefit, has had no changes while on medication - She will arrange outpatient neurology follow-up to discuss possibly discontinuing carbidopa levodopa in future (5) Persistent atrial fibrillation: - EKG on admission showed A-fib - TSH WNL - Anticoagulated with Eliquis - no rate or rhythm control, was previously on digoxin but recently discharged 05/07/24 - Continue to monitor on Telemetry (6) Hypothyroidism: unlikely to be contributing to current symptoms TSH within normal limits Continue levothyroxine (7) Urinary incontinence: ordered external cath Plan Chronic stable diagnoses: chronic constipation - continue with home bowel regimen; Colace, senokot, MiraLAX daily dementia continue with donepezil Anxiety/ Depression - continue venlafaxine and melatonin HLD - continue atorvastatin HFpEF - noted history of heart failure in setting of A fib with RVR in past, not in acute exacerbation at this time, CXR showing cardiomegaly and left > right pleural effusions, I personally reviewed and examined previous x-rays and appears similar VTE ppx: SCDs; Defer chemical therapy as only obs overnight, can consider additional therapy if long-term stay Diet: minced and moist, liquid nectar thick Dispo: med/telemetry Coding Level of Care Code 45206 INP/OBS DISCH >30 MIN Diagnoses Syncope R55 Syncope type: unspecified Orthostasis I95.1 Iron deficiency anemia D50.9 Parkinson's disease G20 Persistent atrial fibrillation I48.19 Hypothyroidism E03.9 Urinary incontinence R32 Time Spent (min) 35
[2024-09-01 12:29] VITALS: PULSE 87
== END 2024-09-01 14:29 | disposition home or self-care (01) ==
LOC: ED 13:04 → EDINP 13:04 → SUATTDRO 17:37 → 2N 19:45

== ENCOUNTER 2024-10-11 14:35 | Inpatient (IN) ==
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
[2024-10-11] MEDS: SODIUM CHLORIDE 0.9% 1,000 ML IV SCH (15:16)
[2024-10-11] MEDS: ACETAMINOPHEN 1,000 MG/100 ML VIAL IV STA (15:16)
[2024-10-11 15:19] LABS: Basophils # (auto) 0.03 K/uL (0.00-0.20); Basophils % (auto) 0.2 %; Eosinophils % (auto) 0.8 %; Hematocrit (blood only) 37.6 % (42.0-52.0); Hemoglobin 12.5 g/dl (14.0-18.0); Immature Granulocytes # (auto) 0.03 K/uL (0.01-0.20); Immature Granulocytes % (auto) 0.2 %; Lymphocytes # (auto) 1.01 K/uL (1.20-3.40); Lymphocytes % (auto) 8.2 %; Mean Corpuscular Hemoglobin 30.1 pg (25.0-34.0); Mean Corpuscular Hgb Conc 33.2 g/dL (32.0-36.0); Mean Corpuscular Volume 90.6 fL (80.0-100.0); Mean Platelet Volume 11.2 fL (9.4-12.4); Monocytes % (auto) 3.3 %; Neutrophils # (auto) 10.72 K/uL (1.40-6.50); Neutrophils % (auto) 87.3 %; Platelet Count 148 K/uL (130-400); RDW Coefficient of Variation 14.2 % (11.5-14.5); RDW Standard Deviation 47.8 fL (36.4-46.3); Red Blood Count 4.15 M/uL (4.70-6.10); White Blood Count 12.29 K/ul (4.8-10.8)
[2024-10-11] MEDS: PIPERACILLIN/TAZOBACTAM 4.5 GM/100 ML BAG IV STA (15:26)
[2024-10-11 15:39] LABS: Albumin Globulin Ratio 1.4 (0.9-2); BUN Creatinine Ratio 25.3 (10-20); Bilirubin,Total 1.6 mg/dl (0.2-1.0); Calcium 9.4 mg/dl (8.6-10.3); Creatinine Clr Calc Pharmacy 71.6 ml/min; Globulin 2.9 gm/dl (2.5-4.0); Potassium 3.8 mmol/L (3.5-5.1); Total Protein 6.9 gm/dl (6.0-8.3)
--- NOTE | 2024-10-11 15:40 | Electrocardiogram Report ---
Test Reason : Blood Pressure : */* mmHG Vent. Rate : 146 BPM Atrial Rate : 146 BPM P-R Int : 154 ms QRS Dur : 82 ms QT Int : 248 ms P-R-T Axes : 83 -86 77 degrees QTcB Int : 386 ms Poor data quality, interpretation may be adversely affected Atrial fibrillation with rapid ventricular response Left axis deviation Septal infarct , age undetermined Abnormal ECG When compared with ECG of 31-Aug-2024 13:19, Questionable change in QRS axis Confirmed by Perez Wu ([id number]) on 10/11/2024 3:38:15 PM Referred By: Confirmed By: Perez Wu
[2024-10-11 15:43] LABS: Troponin I High Sensitivity 13.6 pg/ml (0-20)
[2024-10-11 15:48] LABS: Appearance Urine Clear (Clear); Bacteria Urine Automated None Seen (None Seen); Bilirubin Urine Negative (Negative); Blood Urine Trace (Negative); Cast Urine Automated 0-2 /lpf (0-2); Color Urine Yellow; Epithelial Cell Urine Auto 0-2 /hpf (0-2); Glucose Urine UA Negative (Negative); Ketones Urine 1+ (Negative); Leukocyte Esterase Urine Negative (Negative); Nitrite Urine Negative (Negative); Protein Urine Trace (Negative); Specific Gravity Urine 1.019 (1.000-1.030); Urobilinogen Urine Negative (Negative); pH Urine 7.5 (4.5-7.5)
[2024-10-11 15:49] LABS: INR 1.1 (0.9-1.1); Prothrombin Time 11.9 Seconds (9.0-12.0)
[2024-10-11] MEDS: OPTIRAY 320 100ml IV ONE (16:08)
--- NOTE | 2024-10-11 16:22 | XRay Report ---
INDICATION: Fever. Cough. TECHNIQUE: Frontal radiograph of the chest. COMPARISON: Radiograph from 08/31/2024. FINDINGS: Patient is rotated to left. Cardiomegaly. Left upper/lower lobe infiltrates. Small to moderate volume left pleural effusion. No pneumothorax. No acute fracture. IMPRESSION: Findings concerning for left upper/lower lobe pneumonia. Small to moderate volume left pleural effusion. Electronically signed by Gary Lopez 10-11-2024 4:22 PM
[2024-10-11 16:33] LABS: Adenovirus PCR Not Detected (NotDetected); Bordetella parapertussis PCR Not Detected (NotDetected); Bordetella pertussis PCR Not Detected (NotDetected); Chlamydia pneumoniae PCR Not Detected (NotDetected); Coronavirus 229E PCR Not Detected (NotDetected); Coronavirus CoV-2 (COVID19)PCR Not Detected (NotDetected); Coronavirus HKU1 PCR Not Detected (NotDetected); Coronavirus NL63 PCR Not Detected (NotDetected); Coronavirus OC43PCR Not Detected (NotDetected); Human Metapneumovirus PCR Not Detected (NotDetected); Influenza A PCR Not Detected (NotDetected); Influenza B PCR Not Detected (NotDetected); Mycoplasma pneumoniae PCR Not Detected (NotDetected); Parainfluenza Virus 1 PCR Not Detected (NotDetected); Parainfluenza Virus 2 PCR Not Detected (NotDetected); Parainfluenza Virus 3 PCR Not Detected (NotDetected); Parainfluenza Virus 4 PCR Not Detected (NotDetected); Respiratory Syncytial VirusPCR Not Detected (NotDetected); Rhinovirus/Enterovirus PCR Not Detected (NotDetected)
[2024-10-11] MEDS: SODIUM CHLORIDE 0.9% 500 ML IV ONE (16:33)
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
--- NOTE | 2024-10-11 17:23 | CT Scan Report ---
INDICATION: Fever. Cough. Abdominal pain. COMPARISON: CT chest from 02/17/2024. TECHNIQUE: Axial CT images of the chest, abdomen and pelvis following IV contrast administration. Coronal and sagittal reformations were reviewed. FINDINGS: Chest: The thoracic aorta appears normal in caliber. The heart is mildly enlarged. Small to moderate volume left pleural effusion. Small pericardial effusion. No pneumothorax. No pathologically enlarged mediastinal or hilar lymph nodes. Left upper and lower lobe infiltrates. Small patchy opacities also noted in the right middle and right lower lobes. No acute osseous abnormality evident. Abdomen and pelvis: The liver, gallbladder, spleen, pancreas and adrenal glands appear unremarkable. No hydronephrosis. Mild left pelvocaliectasis. Small right renal cyst noted. Negative for abdominal aortic aneurysm or dissection. No evidence of bowel obstruction/colitis/appendicitis. Moderate amount retained colonic and rectal stool. No free air. No drainable fluid collection. Kuo catheter in the urinary bladder. Degenerative changes in the hips and spine. No acute osseous abnormality evident. IMPRESSION: 1. Findings concerning for multifocal pneumonia. 2. Small to moderate volume left pleural effusion. 3. Small pericardial effusion. 4. Moderate amount of retained colonic and rectal stool. Electronically signed by Gary Lopez 10-11-2024 5:23 PM
[2024-10-11] MEDS: DOXYCYCLINE HYCLATE 100 MG in DEXTROSE 5% MINI-B 100 ML IV SCH (18:24)
[2024-10-11] MEDS ORDERED: ONDANSETRON INJ 2 MG/ML 2 ML VIAL IV PRN (19:04)
[2024-10-11] MEDS ORDERED: FLUTICASONE PROPIONATE NA SPR 16 GM BTL PRN (19:04)
[2024-10-11] MEDS ORDERED: ACETAMINOPHEN 325 MG TAB PO PRN (19:04)
[2024-10-11] MEDS ORDERED: guaiFENesin SUGAR FREE 100 MG/5 ML UDC PO PRN (19:04)
[2024-10-11] MEDS: SODIUM CHLOR 7% 4 ML NEB NEB SCH (20:28)
[2024-10-11] MEDS: CARBIDOPA/LEVODOPA 25/100MG TAB PO SCH (21:53)
[2024-10-11] MEDS: PIPERACILLIN/TAZOBACTAM 4.5 GM/100 ML BAG IV SCH (21:53)
[2024-10-11] MEDS: DONEPEZIL HCL 10 MG TAB PO SCH (21:54)
[2024-10-11] MEDS: FLUDROCORTISONE ACETATE 0.1 MG TAB PO SCH (21:54)
[2024-10-11] MEDS: APIXABAN 5 MG TABLET PO SCH (21:55)
[2024-10-11] MEDS: ATORVASTATIN 20 MG TAB PO SCH (21:55)
[2024-10-11] MEDS: DOCUSATE SODIUM 100 MG CAP PO SCH (21:57)
[2024-10-11] MEDS: clonazePAM 1 MG TAB PO SCH (22:03)
[2024-10-12] MEDS: LEVOTHYROXINE SODIUM 75 MCG TABLET PO SCH (05:52)
[2024-10-12 06:49] LABS: Basophils # (auto) 0.03 K/uL (0.00-0.20); Basophils % (auto) 0.2 %; Eosinophils # (auto) 0.04 K/uL (0.00-0.50); Eosinophils % (auto) 0.3 %; Hematocrit (blood only) 29.4 % (42.0-52.0); Immature Granulocytes # (auto) 0.09 K/uL (0.01-0.20); Immature Granulocytes % (auto) 0.6 %; Lymphocytes # (auto) 1.32 K/uL (1.20-3.40); Lymphocytes % (auto) 9.4 %; Mean Corpuscular Hemoglobin 30.4 pg (25.0-34.0); Mean Corpuscular Volume 89.4 fL (80.0-100.0); Mean Platelet Volume 11.6 fL (9.4-12.4); Monocytes # (auto) 0.89 K/uL (0.11-0.59); Monocytes % (auto) 6.4 %; Neutrophils # (auto) 11.63 K/uL (1.40-6.50); Neutrophils % (auto) 83.1 %; Platelet Count 110 K/uL (130-400); RDW Coefficient of Variation 14.6 % (11.5-14.5); RDW Standard Deviation 47.2 fL (36.4-46.3); Red Blood Count 3.29 M/uL (4.70-6.10)
[2024-10-12 07:00] LABS: Calcium 8.5 mg/dl (8.6-10.3); Creatinine Clr Calc Pharmacy 70.8 ml/min; Magnesium 1.6 mg/dl (1.7-2.4); Potassium 3.3 mmol/L (3.5-5.1)
[2024-10-12] MEDS: VENLAFAXINE HCL XR 75 MG CAPXR PO SCH (08:27)
[2024-10-12] MEDS: MIDODRINE HCL 2.5 MG TAB PO SCH (08:27)
[2024-10-12] MEDS: POLYETHYLENE (MIRALAX) 17 GM PACK PO SCH (08:36)
[2024-10-12] MEDS: POTASSIUM CHLORIDE CRTAB 20 MEQ TABCR PO SCH (08:37)
[2024-10-12] MEDS: POTASSIUM CHLORIDE 20 MEQ/15 ML UDC PO STA (10:00)
--- NOTE | 2024-10-12 13:58 | Hospitalist Progress Note ---
Date of Service October 12, 2024 Assessment & Plan (1) Multifocal pneumonia: (2) Sepsis: (3) Hypoxia: (4) Parkinson disease: (5) Persistent atrial fibrillation: Plan Andrew is an 84-year-old male with PMH of Parkinson's disease, memory loss, BPH, recurrent UTIs, atrial fibrillation (on Eliquis), and expressive aphasia. He presented via EMS on 10/11 for cough, fever, and rigors that started the day prior. #Multifocal pneumonia CXR and CT chest concerning for both left upper and lower lobe pneumonia BioFire negative Based on history and difficulty swallowing, concern for aspiration pneumonia Sputum culture ordered, pending MRSA swab negative Zosyn 4.5 g IV q8h Doxycycline 100 mg IV q12h Acetaminophen as needed for pain/fever Hypertonic saline neb BID Incentive spirometry, flutter valve #Sepsis Suspected pulmonary source Chest CT revealed multifocal pneumonia and small/moderate left-sided pleural effusions Leukocytosis at 12.29, tachycardic at 106 bpm, and febrile at 39.0 C on arrival Lactate 3.5 on arrival, normalized Procalcitonin WNL Blood cultures pending Antibiotics (as above) #Hypoxia SpO2 88% on RA on arrival Patient is not on supple oxygen at baseline Patient's SpO2 improved quickly on 2L NC ? Mucous plugging Currently on room air Continuous pulse oximetry #Difficulty swallowing Aspiration precautions Dysphagia screen Elevate [facility] Speech therapy consult appreciated Video swallow study will be done this hospitalization #Atrial fibrillation Slightly elevated on arrival, but rate controlled at time of admission Continue Eliquis #Parkinson's disease with neurogenic orthostatic hypotension Continue Sinemet BID Continue fludrocortisone #New onset fecal incontinence A/P CT on arrival revealed moderate amount of retained stool MiraLAX daily Disposition: Admit to PCU telemetry DNR/DNI N.p.o. for now (except medications) VTE PPx: Eliquis Admission and Anticipated Discharge Date Admission Date: October 11, 2024 Subjective Patient was seen and examined at 11:05 AM. He states that he is feeling better overall today. He denies chest pain or shortness of breath. Review of Systems Review of Systems: All systems reviewed & are unremarkable except as noted in Subjective Physical Exam Physical Exam: General: Awake, conversant. Frail looking elderly male Heart: S1, S2/regular rate and rhythm, no murmur rubs or gallops Lungs: Clear to auscultation bilaterally. Normal effort Abdomen: Soft/nontender/nondistended. No hepatosplenomegaly Extremities: No clubbing/cyanosis. No edema Behavior: Appropriate, cooperative Results & Data Results & Data Vital Signs (Past 12 Hours) Vital Signs Temp Pulse Resp BP Pulse Ox O2 Del Method 10/12/24 10:57 36.5 C 92 H 16 158/87 H 95 Room Air 10/12/24 07:31 36.4 C L 80 17 123/78 97 Room Air 10/12/24 07:07 78 16 94 Room Air 10/12/24 02:30 36.8 C 75 18 124/71 99 Oxymask Laboratory Results Abnormal lab results 10/11/24 10/11/24 10/12/24 Range/Units 15:00 Unknown 06:12 WBC 12.29 H 14.00 H (4.8-10.8) K/ul RBC 4.15 L 3.29 L (4.70-6.10) M/uL Hgb 12.5 L 10.0 L (14.0-18.0) g/dl Hct 37.6 L 29.4 L (42.0-52.0) % RDW Std Deviation 47.8 H 47.2 H (36.4-46.3) fL RDW Coeff of Imelda 14.6 H (11.5-14.5) % Plt Count 110 L (130-400) K/uL Neut # (Auto) 10.72 H 11.63 H (1.40-6.50) K/uL Lymph # (Auto) 1.01 L (1.20-3.40) K/uL [place] # (Auto) 0.89 H (0.11-0.59) K/uL Potassium 3.3 L (3.5-5.1) mmol/L Carbon Dioxide 33 H (21-32) mmol/L BUN/Creatinine Ratio 25.3 H 25.0 H (10-20) Lactate 3.5 H* (0.4-2.0) mmol/L Calcium 8.5 L (8.6-10.3) mg/dl Magnesium 1.6 L (1.7-2.4) mg/dl Total Bilirubin 1.6 H (0.2-1.0) mg/dl Urine Protein Trace H (Negative) Urine Ketones 1+ H (Negative) Urine Blood Trace H (Negative) Urine WBC (Auto) 6-10 H (0-5) /hpf Urine RBC (Auto) 6-10 H (0-2) /hpf Diagnostic Findings Chest X-Ray 10/11/24 15:08 INDICATION: Fever. Cough. TECHNIQUE: Frontal radiograph of the chest. COMPARISON: Radiograph from 08/31/2024. FINDINGS: Patient is rotated to left. Cardiomegaly. Left upper/lower lobe infiltrates. Small to moderate volume left pleural effusion. No pneumothorax. No acute fracture. IMPRESSION: Findings concerning for left upper/lower lobe pneumonia. Small to moderate volume left pleural effusion. Electronically signed by Gary Lopez 10-11-2024 4:22 PM Abdomen/Pelvis CT 10/11/24 15:46 INDICATION: Fever. Cough. Abdominal pain. COMPARISON: CT chest from 02/17/2024. TECHNIQUE: Axial CT images of the chest, abdomen and pelvis following IV contrast administration. Coronal and sagittal reformations were reviewed. FINDINGS: Chest: The thoracic aorta appears normal in caliber. The heart is mildly enlarged. Small to moderate volume left pleural effusion. Small pericardial effusion. No pneumothorax. No pathologically enlarged mediastinal or hilar lymph nodes. Left upper and lower lobe infiltrates. Small patchy opacities also noted in the right middle and right lower lobes. No acute osseous abnormality evident. Abdomen and pelvis: The liver, gallbladder, spleen, pancreas and adrenal glands appear unremarkable. No hydronephrosis. Mild left pelvocaliectasis. Small right renal cyst noted. Negative for abdominal aortic aneurysm or dissection. No evidence of bowel obstruction/colitis/appendicitis. Moderate amount retained colonic and rectal stool. No free air. No drainable fluid collection. Kuo catheter in the urinary bladder. Degenerative changes in the hips and spine. No acute osseous abnormality evident. IMPRESSION: 1. Findings concerning for multifocal pneumonia. 2. Small to moderate volume left pleural effusion. 3. Small pericardial effusion. 4. Moderate amount of retained colonic and rectal stool. Electronically signed by Gary Lopez 10-11-2024 5:[address] 10/11/24 15:46 INDICATION: Fever. Cough. Abdominal pain. COMPARISON: CT chest from 02/17/2024. TECHNIQUE: Axial CT images of the chest, abdomen and pelvis following IV contrast administration. Coronal and sagittal reformations were reviewed. FINDINGS: Chest: The thoracic aorta appears normal in caliber. The heart is mildly enlarged. Small to moderate volume left pleural effusion. Small pericardial effusion. No pneumothorax. No pathologically enlarged mediastinal or hilar lymph nodes. Left upper and lower lobe infiltrates. Small patchy opacities also noted in the right middle and right lower lobes. No acute osseous abnormality evident. Abdomen and pelvis: The liver, gallbladder, spleen, pancreas and adrenal glands appear unremarkable. No hydronephrosis. Mild left pelvocaliectasis. Small right renal cyst noted. Negative for abdominal aortic aneurysm or dissection. No evidence of bowel obstruction/colitis/appendicitis. Moderate amount retained colonic and rectal stool. No free air. No drainable fluid collection. Kuo catheter in the urinary bladder. Degenerative changes in the hips and spine. No acute osseous abnormality evident. IMPRESSION: 1. Findings concerning for multifocal pneumonia. 2. Small to moderate volume left pleural effusion. 3. Small pericardial effusion. 4. Moderate amount of retained colonic and rectal stool. Electronically signed by Gary Lopez 10-11-2024 5:23 PM PG Care Time/CCT Total # of Minutes Spent Total Time Spent with Patient: Total time spent is greater than 50% in coordination of care (as documented) at patient's floor/unit and/or counseling patient: Coding Level of Care Code 51734 SUB INP/OBS CARE 2/35MIN Diagnoses Multifocal pneumonia J18.9 Sepsis A41.9; R65.20; J96.01 Acute respiratory failure type: with hypoxia Sepsis acute organ dysfunction status: with acute organ dysfunction Sepsis type: sepsis due to unspecified organism Severe sepsis acute organ dysfunction type: acute respiratory failure Severe sepsis shock status: without septic shock Hypoxia R09.02 Parkinson disease G20.B1 Dyskinesia presence: with dyskinesia Fluctuating manifestations: unspecified whether manifestations fluctuate Persistent atrial fibrillation I48.19 (2) Sepsis Acute respiratory failure type: with hypoxia Sepsis acute organ dysfunction status: with acute organ dysfunction Sepsis type: sepsis due to unspecified organism Severe sepsis acute organ dysfunction type: acute respiratory failure Severe sepsis shock status: without septic shock Qualified Code(s): A41.9 - Sepsis, unspecified organism; R65.20 - Severe sepsis without septic shock; J96.01 - Acute respiratory failure with hypoxia (4) Parkinson disease Dyskinesia presence: with dyskinesia Fluctuating manifestations: unspecified whether manifestations fluctuate Qualified Code(s): G20.B1 - Parkinson's disease with dyskinesia, without mention of fluctuations
[2024-10-13 08:35] LABS: Basophils # (auto) 0.02 K/uL (0.00-0.20); Basophils % (auto) 0.2 %; Eosinophils # (auto) 0.17 K/uL (0.00-0.50); Hematocrit (blood only) 30.1 % (42.0-52.0); Hemoglobin 10.1 g/dl (14.0-18.0); Immature Granulocytes # (auto) 0.03 K/uL (0.01-0.20); Immature Granulocytes % (auto) 0.4 %; Lymphocytes # (auto) 0.89 K/uL (1.20-3.40); Lymphocytes % (auto) 10.5 %; Mean Corpuscular Hemoglobin 29.6 pg (25.0-34.0); Mean Corpuscular Hgb Conc 33.6 g/dL (32.0-36.0); Mean Corpuscular Volume 88.3 fL (80.0-100.0); Mean Platelet Volume 12.2 fL (9.4-12.4); Monocytes % (auto) 7.1 %; Neutrophils # (auto) 6.73 K/uL (1.40-6.50); Neutrophils % (auto) 79.8 %; Platelet Count 119 K/uL (130-400); RDW Coefficient of Variation 14.2 % (11.5-14.5); RDW Standard Deviation 45.4 fL (36.4-46.3); Red Blood Count 3.41 M/uL (4.70-6.10); White Blood Count 8.44 K/ul (4.8-10.8)
[2024-10-13 08:54] LABS: BUN Creatinine Ratio 22.6 (10-20); Calcium 8.6 mg/dl (8.6-10.3)
[2024-10-13 08:55] LABS: Potassium 2.9 mmol/L (3.5-5.1)
[2024-10-13] MEDS: POTASSIUM CHLORIDE 20 MEQ/15 ML UDC PO STA (11:56)
--- NOTE | 2024-10-13 13:14 | Hospitalist Progress Note ---
Date of Service October 13, 2024 Assessment & Plan (1) Multifocal pneumonia: (2) Sepsis: (3) Hypoxia: (4) Parkinson disease: (5) Persistent atrial fibrillation: Plan Andrew is an 84-year-old male with PMH of Parkinson's disease, memory loss, BPH, recurrent UTIs, atrial fibrillation (on Eliquis), and expressive aphasia. He presented via EMS on 10/11 for cough, fever, and rigors that started the day prior. #Multifocal pneumonia CXR and CT chest concerning for both left upper and lower lobe pneumonia BioFire negative Based on history and difficulty swallowing, concern for aspiration pneumonia Sputum culture ordered, pending MRSA swab negative Zosyn 4.5 g IV q8h Doxycycline 100 mg IV q12h Acetaminophen as needed for pain/fever Hypertonic saline neb BID Incentive spirometry, flutter valve Clinically improved Leukocytosis resolved Now on room air #Sepsis Suspected pulmonary source Chest CT revealed multifocal pneumonia and small/moderate left-sided pleural effusions Leukocytosis at 12.29, tachycardic at 106 bpm, and febrile at 39.0 C on arrival Lactate 3.5 on arrival, normalized Leukocytosis resolved Procalcitonin WNL Blood cultures pending Antibiotics (as above) #Hypoxia SpO2 88% on RA on arrival Patient is not on supple oxygen at baseline Patient's SpO2 improved quickly on 2L NC ? Mucous plugging Currently on room air Continuous pulse oximetry #Difficulty swallowing Aspiration precautions Dysphagia screen Elevate [facility] Speech therapy consult appreciated Video swallow study will be done this hospitalization. Scheduled for 10/15 #Atrial fibrillation Slightly elevated on arrival, but rate controlled at time of admission Continue Eliquis #Parkinson's disease with neurogenic orthostatic hypotension Continue Sinemet BID Continue fludrocortisone #New onset fecal incontinence A/P CT on arrival revealed moderate amount of retained stool MiraLAX daily Ordered Seroquel to help patient's sleep at night Spoke to the at the bedside in detail. DNR/DNI VTE PPx: Eliquis Admission and Anticipated Discharge Date Admission Date: October 11, 2024 Subjective Patient was seen and examined at 10:15 AM. was accompanying him during the encounter. Per , the patient did not sleep well at night. Review of Systems Review of Systems: All systems reviewed & are unremarkable except as noted in Subjective Physical Exam Physical Exam: General: Awake, conversant. Frail looking elderly male Heart: S1, S2/regular rate and rhythm, no murmur rubs or gallops Lungs: Clear to auscultation bilaterally. Normal effort Abdomen: Soft/nontender/nondistended. No hepatosplenomegaly Extremities: No clubbing/cyanosis. No edema Behavior: Appropriate, cooperative Results & Data Results & Data Vital Signs (Past 12 Hours) Vital Signs Temp Pulse Resp BP BP Pulse Ox O2 Del Method 10/13/24 10:50 36.6 C 87 16 161/89 H 94 Room Air 10/13/24 08:35 36.4 C L 96 H 16 150/86 H 94 Room Air 10/13/24 06:53 102 H 18 62 L Room Air 10/13/24 03:27 36.7 C 80 18 154/84 H 93 Room Air Laboratory Results Abnormal lab results 10/13/24 Range/Units 07:37 RBC 3.41 L (4.70-6.10) M/uL Hgb 10.1 L (14.0-18.0) g/dl Hct 30.1 L (42.0-52.0) % Plt Count 119 L (130-400) K/uL Neut # (Auto) 6.73 H (1.40-6.50) K/uL Lymph # (Auto) 0.89 L (1.20-3.40) K/uL [place] # (Auto) 0.60 H (0.11-0.59) K/uL Potassium 2.9 L (3.5-5.1) mmol/L BUN/Creatinine Ratio 22.6 H (10-20) Glucose 115 H (70-99(Fasting)) mg/dl PG Care Time/CCT Total # of Minutes Spent Total Time Spent with Patient: Total time spent is greater than 50% in coordination of care (as documented) at patient's floor/unit and/or counseling patient: Coding Level of Care Code 05008 SUB INP/OBS CARE 2/35MIN Diagnoses Multifocal pneumonia J18.9 Sepsis A41.9; R65.20; J96.01 Acute respiratory failure type: with hypoxia Sepsis acute organ dysfunction status: with acute organ dysfunction Sepsis type: sepsis due to unspecified organism Severe sepsis acute organ dysfunction type: acute respiratory failure Severe sepsis shock status: without septic shock Hypoxia R09.02 Parkinson disease G20.B1 Dyskinesia presence: with dyskinesia Fluctuating manifestations: unspecified whether manifestations fluctuate Persistent atrial fibrillation I48.19 (2) Sepsis Acute respiratory failure type: with hypoxia Sepsis acute organ dysfunction status: with acute organ dysfunction Sepsis type: sepsis due to unspecified organism Severe sepsis acute organ dysfunction type: acute respiratory failure Severe sepsis shock status: without septic shock Qualified Code(s): A41.9 - Sepsis, unspecified organism; R65.20 - Severe sepsis without septic shock; J96.01 - Acute respiratory failure with hypoxia (4) Parkinson disease Dyskinesia presence: with dyskinesia Fluctuating manifestations: unspecified whether manifestations fluctuate Qualified Code(s): G20.B1 - Parkinson's disease with dyskinesia, without mention of fluctuations
[2024-10-13] MEDS: QUEtiapine FUMARATE 25 MG TABLET PO SCH (20:45)
[2024-10-14 08:02] LABS: Basophils # (auto) 0.02 K/uL (0.00-0.20); Basophils % (auto) 0.4 %; Eosinophils # (auto) 0.28 K/uL (0.00-0.50); Eosinophils % (auto) 5.3 %; Hematocrit (blood only) 30.2 % (42.0-52.0); Hemoglobin 10.1 g/dl (14.0-18.0); Lymphocytes % (auto) 26.3 %; Mean Corpuscular Hemoglobin 30.1 pg (25.0-34.0); Mean Corpuscular Hgb Conc 33.4 g/dL (32.0-36.0); Mean Corpuscular Volume 90.1 fL (80.0-100.0); Monocytes # (auto) 0.58 K/uL (0.11-0.59); Monocytes % (auto) 10.9 %; Neutrophils # (auto) 3.04 K/uL (1.40-6.50); Neutrophils % (auto) 57.1 %; Platelet Count 132 K/uL (130-400); RDW Standard Deviation 46.5 fL (36.4-46.3); Red Blood Count 3.35 M/uL (4.70-6.10); White Blood Count 5.32 K/ul (4.8-10.8)
[2024-10-14 08:13] LABS: BUN Creatinine Ratio 14.9 (10-20); Calcium 8.6 mg/dl (8.6-10.3); Creatinine Clr Calc Pharmacy 69.4 ml/min; Potassium 3.1 mmol/L (3.5-5.1)
[2024-10-14] MEDS: POTASSIUM CHLORIDE 20 MEQ/15 ML UDC PO SCH (09:58)
--- NOTE | 2024-10-14 11:08 | Fluoroscopy Report ---
FL video swallow CLINICAL HISTORY: r/o aspiration. TECHNIQUE: Video fluoroscopic evaluation of swallowing was performed in the AP and lateral projection s by the speech pathology staff. The patient is fed nectar-thick and thin liquid barium, a barium coa nano wafer, and barium pudding. FLUOROSCOPY TIME: 1.4. COMPARISON: None FINDINGS: No aspiration seen with any barium consistency. IMPRESSION: No aspiration seen. ACT 112: Negative or not required by law. Electronically signed by: Anderson Le M.D. 10/14/2024 11:07 AM
--- NOTE | 2024-10-14 13:05 | Hospitalist Progress Note ---
Date of Service October 14, 2024 Assessment & Plan (1) Multifocal pneumonia: (2) Sepsis: (3) Hypoxia: (4) Parkinson disease: (5) Persistent atrial fibrillation: Plan Andrew is an 84-year-old male with PMH of Parkinson's disease, memory loss, BPH, recurrent UTIs, atrial fibrillation (on Eliquis), and expressive aphasia. He presented via EMS on 10/11 for cough, fever, and rigors that started the day prior. #Multifocal pneumonia CXR and CT chest concerning for both left upper and lower lobe pneumonia BioFire negative Based on history and difficulty swallowing, concern for aspiration pneumonia Sputum culture ordered, pending MRSA swab negative Zosyn 4.5 g IV q8h Doxycycline 100 mg IV q12h Switch to p.o. Augmentin today Acetaminophen as needed for pain/fever Hypertonic saline neb BID Incentive spirometry, flutter valve Clinically improved Leukocytosis resolved Now on room air #Sepsis Suspected pulmonary source Chest CT revealed multifocal pneumonia and small/moderate left-sided pleural effusions Leukocytosis at 12.29, tachycardic at 106 bpm, and febrile at 39.0 C on arrival Lactate 3.5 on arrival, normalized Leukocytosis resolved Procalcitonin WNL Blood cultures negative Antibiotics (as above) #Hypoxia SpO2 88% on RA on arrival Patient is not on supple oxygen at baseline Patient's SpO2 improved quickly on 2L NC ? Mucous plugging Currently on room air Continuous pulse oximetry #Difficulty swallowing Aspiration precautions Dysphagia screen Elevate [facility] Speech therapy consult appreciated Video swallow study completed today. No aspiration noted at the time of video swallow #Atrial fibrillation Slightly elevated on arrival, but rate controlled at time of admission Continue Eliquis #Parkinson's disease with neurogenic orthostatic hypotension Continue Sinemet BID Continue fludrocortisone #New onset fecal incontinence A/P CT on arrival revealed moderate amount of retained stool MiraLAX daily Ordered Seroquel to help patient's sleep at night Spoke to the at the bedside in detail. DNR/DNI VTE PPx: Eliquis Possible discharge tomorrow 10/15 Admission and Anticipated Discharge Date Admission Date: October 11, 2024 Subjective Patient was seen and examined at 9:40 AM. at the bedside. Patient slept well through the night. Review of Systems Review of Systems: Unobtainable due to cognitive status Physical Exam Physical Exam: General: Awake, conversant. Frail looking elderly male Heart: S1, S2/regular rate and rhythm, no murmur rubs or gallops Lungs: Clear to auscultation bilaterally. Normal effort Abdomen: Soft/nontender/nondistended. No hepatosplenomegaly Extremities: No clubbing/cyanosis. No edema Behavior: Appropriate, cooperative Results & Data Results & Data Vital Signs (Past 12 Hours) Vital Signs Temp Pulse Resp BP BP Pulse Ox O2 Del Method 10/14/24 11:06 36.5 C 77 18 145/90 H 96 Room Air 10/14/24 07:19 36.3 C L 90 18 137/85 92 Room Air 10/14/24 07:00 74 16 92 Room Air 10/14/24 03:22 36.5 C 79 18 154/83 H 94 Room Air Laboratory Results Abnormal lab results 10/14/24 Range/Units 07:20 RBC 3.35 L (4.70-6.10) M/uL Hgb 10.1 L (14.0-18.0) g/dl Hct 30.2 L (42.0-52.0) % RDW Std Deviation 46.5 H (36.4-46.3) fL Immature Gran # (Auto) 0.00 L (0.01-0.20) K/uL Potassium 3.1 L (3.5-5.1) mmol/L Carbon Dioxide 33 H (21-32) mmol/L PG Care Time/CCT Total # of Minutes Spent Total Time Spent with Patient: Total time spent is greater than 50% in coordination of care (as documented) at patient's floor/unit and/or counseling patient: Coding Level of Care Code 10442 SUB INP/OBS CARE 2/35MIN Diagnoses Multifocal pneumonia J18.9 Sepsis A41.9; R65.20; J96.01 Acute respiratory failure type: with hypoxia Sepsis acute organ dysfunction status: with acute organ dysfunction Sepsis type: sepsis due to unspecified organism Severe sepsis acute organ dysfunction type: acute respiratory failure Severe sepsis shock status: without septic shock Hypoxia R09.02 Parkinson disease G20.B1 Dyskinesia presence: with dyskinesia Fluctuating manifestations: unspecified whether manifestations fluctuate Persistent atrial fibrillation I48.19 (2) Sepsis Acute respiratory failure type: with hypoxia Sepsis acute organ dysfunction status: with acute organ dysfunction Sepsis type: sepsis due to unspecified organism Severe sepsis acute organ dysfunction type: acute respiratory failure Severe sepsis shock status: without septic shock Qualified Code(s): A41.9 - Sepsis, unspecified organism; R65.20 - Severe sepsis without septic shock; J96.01 - Acute respiratory failure with hypoxia (4) Parkinson disease Dyskinesia presence: with dyskinesia Fluctuating manifestations: unspecified whether manifestations fluctuate Qualified Code(s): G20.B1 - Parkinson's disease with dyskinesia, without mention of fluctuations
[2024-10-14] MEDS: AMOXICILLIN/CLAVULANATE 875 MG TAB PO SCH (16:30)
[2024-10-15 07:46] VITALS: BP 144/84; RESP 18; TEMP 97.3; O2SAT 91
[2024-10-15 08:23] LABS: Hematocrit (blood only) 32.6 % (42.0-52.0); Hemoglobin 10.8 g/dl (14.0-18.0); Mean Corpuscular Hemoglobin 29.8 pg (25.0-34.0); Mean Corpuscular Hgb Conc 33.1 g/dL (32.0-36.0); Mean Corpuscular Volume 90.1 fL (80.0-100.0); Mean Platelet Volume 11.4 fL (9.4-12.4); Platelet Count 148 K/uL (130-400); RDW Coefficient of Variation 13.9 % (11.5-14.5); RDW Standard Deviation 45.8 fL (36.4-46.3); Red Blood Count 3.62 M/uL (4.70-6.10); White Blood Count 5.34 K/ul (4.8-10.8)
[2024-10-15 08:30] LABS: Calcium 8.8 mg/dl (8.6-10.3); Creatinine Clr Calc Pharmacy 76.9 ml/min; Potassium 3.9 mmol/L (3.5-5.1)
--- NOTE | 2024-10-15 09:17 | Discharge Summary ---
Date of Service October 15, 2024 Admission HPI Per Admitting Provider Andrew is an 84-year-old male with PMH of Parkinson's disease, memory loss, BPH, recurrent UTIs, atrial fibrillation (on Eliquis), and expressive aphasia. He presented via EMS on 10/11 for cough, fever, and rigors that started the day prior. Patient's (Estephania) is at bedside and provides most of the history. She reports that he has had fecal incontinence for the past 3 days, which has occurred in the past whenever he develops "stool balls"; this is led to hospitalization in the past. Yesterday, patient developed rigors around 2 PM, and then had a fever of 101.5 F about an hour later. Patient's fever went down without any additional medications; no Tylenol given, and so decided to see how he did overnight. He then woke up the next morning and developed full rigors again. He is also had coughing and difficulty swallowing; reports he sometimes requires thickened liquids. For this reason, patient was not given his regular morning medicine today. This also raised concern for aspiration pneumonia. Otherwise, good compliance with taking Eliquis. Patient's manage medicine at home. Patient is not on supplemental oxygen at baseline or CPAP at night. Home pulse ox was 98% on RA this morning. reports he does have a history of Pseudomonas infections. No smoking, tobacco use, or recent alcohol use. Patient is tachycardic at 106 bpm and febrile at 39.0 C at time admission. ED course: NSS 2500 mL IV Acetaminophen 1000 mg IV Zosyn 4.5 g IV ROS obtained from both patient and patient's at bedside: Patient endorses fever, chills, rigors, productive cough, and new onset fecal incontinence x 3 days. Patient denies chest pain, SOB, hemoptysis, abdominal pain, N/V/D, or redness/swelling in the legs. Admission Exam Per Admitting Provider General: no acute distress; lethargic; at bedside; toxic-appearing; cooperative; SpO2 96% on 2L NC HEENT: normocephalic, atraumatic; no scleral icterus; PERRLA; vision and hearing grossly intact Neck: supple; no lymphadenopathy; trachea midline Skin: warm, dry without signs of tenting; no cyanosis; no rashes, bruising, lesions, or erythema noted CV: chest wall NTP; RR, tachycardic at 101 bpm; S1/S2 normal; no murmurs/rubs/gallops; pulses intact and symmetric at radial, DP, and PT Lungs: no acute respiratory distress; symmetrical chest wall expansion; clear breath sounds across all lung ibarra w/o adventitious sounds; no wheezing ABD: Soft, NTP; BS present; no rebound/guarding; no distention MSK: no tics or fasciculations; no edema noted in the LEs b/l, nonerythematous Neuro: Alert and oriented to name, , and location; not oriented to month of the year; slow to respond to questioning, but does respond appropriately; fluent speech; no focal deficits appreciated; sensation intact in ventricular extremities bilaterally Principal Diagnosis Multifocal pneumonia with sepsis, possibly aspiration pneumonia Discharge Exam General: Awake, conversant. Frail looking elderly male Heart: S1, S2/regular rate and rhythm, no murmur rubs or gallops Lungs: Clear to auscultation bilaterally. Normal effort Abdomen: Soft/nontender/nondistended. No hepatosplenomegaly Extremities: No clubbing/cyanosis. No edema Behavior: Appropriate, cooperative Discharge Data Allergies Allergy/AdvReac Type Severity Reaction Status Date / Time oxcarbazepine Allergy Unknown Unknown - Unverified 10/11/24 17:56 On med list from [facility] Pharmacy Consultations 10/11/24 16:32 ED Decision to Admit Stat Ordered Studies Chest X-Ray 10/11/24 15:08 INDICATION: Fever. Cough. TECHNIQUE: Frontal radiograph of the chest. COMPARISON: Radiograph from 08/31/2024. FINDINGS: Patient is rotated to left. Cardiomegaly. Left upper/lower lobe infiltrates. Small to moderate volume left pleural effusion. No pneumothorax. No acute fracture. IMPRESSION: Findings concerning for left upper/lower lobe pneumonia. Small to moderate volume left pleural effusion. Electronically signed by Gary Lopez 10-11-2024 4:22 PM Abdomen/Pelvis CT 10/11/24 15:46 INDICATION: Fever. Cough. Abdominal pain. COMPARISON: CT chest from 02/17/2024. TECHNIQUE: Axial CT images of the chest, abdomen and pelvis following IV contrast administration. Coronal and sagittal reformations were reviewed. FINDINGS: Chest: The thoracic aorta appears normal in caliber. The heart is mildly enlarged. Small to moderate volume left pleural effusion. Small pericardial effusion. No pneumothorax. No pathologically enlarged mediastinal or hilar lymph nodes. Left upper and lower lobe infiltrates. Small patchy opacities also noted in the right middle and right lower lobes. No acute osseous abnormality evident. Abdomen and pelvis: The liver, gallbladder, spleen, pancreas and adrenal glands appear unremarkable. No hydronephrosis. Mild left pelvocaliectasis. Small right renal cyst noted. Negative for abdominal aortic aneurysm or dissection. No evidence of bowel obstruction/colitis/appendicitis. Moderate amount retained colonic and rectal stool. No free air. No drainable fluid collection. Kuo catheter in the urinary bladder. Degenerative changes in the hips and spine. No acute osseous abnormality evident. IMPRESSION: 1. Findings concerning for multifocal pneumonia. 2. Small to moderate volume left pleural effusion. 3. Small pericardial effusion. 4. Moderate amount of retained colonic and rectal stool. Electronically signed by Gary Lopez 10-11-2024 5:[address] 10/11/24 15:46 INDICATION: Fever. Cough. Abdominal pain. COMPARISON: CT chest from 02/17/2024. TECHNIQUE: Axial CT images of the chest, abdomen and pelvis following IV contrast administration. Coronal and sagittal reformations were reviewed. FINDINGS: Chest: The thoracic aorta appears normal in caliber. The heart is mildly enlarged. Small to moderate volume left pleural effusion. Small pericardial effusion. No pneumothorax. No pathologically enlarged mediastinal or hilar lymph nodes. Left upper and lower lobe infiltrates. Small patchy opacities also noted in the right middle and right lower lobes. No acute osseous abnormality evident. Abdomen and pelvis: The liver, gallbladder, spleen, pancreas and adrenal glands appear unremarkable. No hydronephrosis. Mild left pelvocaliectasis. Small right renal cyst noted. Negative for abdominal aortic aneurysm or dissection. No evidence of bowel obstruction/colitis/appendicitis. Moderate amount retained colonic and rectal stool. No free air. No drainable fluid collection. Kuo catheter in the urinary bladder. Degenerative changes in the hips and spine. No acute osseous abnormality evident. IMPRESSION: 1. Findings concerning for multifocal pneumonia. 2. Small to moderate volume left pleural effusion. 3. Small pericardial effusion. 4. Moderate amount of retained colonic and rectal stool. Electronically signed by Gary Lopez 10-11-2024 5:23 PM Videofluoroscopic Swallow 10/14/24 10:30 FL video swallow CLINICAL HISTORY: r/o aspiration. TECHNIQUE: Video fluoroscopic evaluation of swallowing was performed in the AP and lateral projections by the speech pathology staff. The patient is fed nectar-thick and thin liquid barium, a barium coated wafer, and barium pudding. FLUOROSCOPY TIME: 1.4. COMPARISON: None FINDINGS: No aspiration seen with any barium consistency. IMPRESSION: No aspiration seen. ACT 112: Negative or not required by law. Electronically signed by: Anderson Le M.D. 10/14/2024 11:07 AM 10/11/24 15:46 CT abd pelvis IV con only Stat CT chest diagnostic w con Stat 10/14/24 10:30 FL video swallow Routine Hospital Course (1) Multifocal pneumonia: (2) Sepsis: (3) Hypoxia: (4) Parkinson disease: (5) Persistent atrial fibrillation: Plan Andrew is an 84-year-old male with PMH of Parkinson's disease, memory loss, BPH, recurrent UTIs, atrial fibrillation (on Eliquis), and expressive aphasia. He presented via EMS on 10/11 for cough, fever, and rigors that started the day prior. #Multifocal pneumonia CXR and CT chest concerning for both left upper and lower lobe pneumonia BioFire negative Based on history and difficulty swallowing, concern for aspiration pneumonia Sputum culture ordered, pending MRSA swab negative Was treated with Zosyn 4.5 g IV q8h and doxycycline 100 mg IV q12h Switch to p.o. Augmentin 10/14 Acetaminophen as needed for pain/fever Hypertonic saline neb BID Incentive spirometry, flutter valve Clinically improved Leukocytosis resolved Now on room air Patient continues to do well on Augmentin. Discharged on Augmentin to complete the course #Sepsis Suspected pulmonary source Chest CT revealed multifocal pneumonia and small/moderate left-sided pleural effusions Leukocytosis at 12.29, tachycardic at 106 bpm, and febrile at 39.0 C on arrival Lactate 3.5 on arrival, normalized Leukocytosis resolved Procalcitonin WNL Blood cultures negative Antibiotics (as above) #Hypoxia SpO2 88% on RA on arrival Patient is not on supple oxygen at baseline Patient's SpO2 improved quickly on 2L NC ? Mucous plugging Currently on room air Continuous pulse oximetry #Difficulty swallowing Aspiration precautions Dysphagia screen [facility] Speech therapy consult appreciated Video swallow study completed 10/14. No aspiration noted at the time of video swallow #Atrial fibrillation Slightly elevated on arrival, but rate controlled at time of admission Continue Eliquis #Parkinson's disease with neurogenic orthostatic hypotension Continue Sinemet BID Continue fludrocortisone #New onset fecal incontinence A/P CT on arrival revealed moderate amount of retained stool MiraLAX daily Discharge to home today Total Time Total Time Spent Total Time Spent (In Minutes): 35 Discharge Plan Discharge Items Patient Disposition: Home - Home Health Services Reason For Visit: PNA, SEPSIS Discharge Diagnosis: Multifocal pneumonia with sepsis, possibly aspiration pneumonia Activity: Resume your previous activity Non-emergency contact: Primary Care Provider Call non-emergency contact if: you have any medication questions and your symptoms worsen Follow-up/Referrals: Philip Whitfield MD [Primary Care Provider] - Diet: Regular Diet Texture: Pureed (blended smooth) Diet Comment: Minced and moist diet Addtl Attending Provider Instructions: Advised to follow-up with PCP in 1 week Pending Studies at Discharge: No Stand-Alone Forms: My [facility] Medications and DC Order Prescriptions: New amoxicillin-pot clavulanate 875-125 mg Tablet 1 tab PO BIDM 4 Days Qty: 8 0RF Continued Eliquis 5 mg tablet 5 mg PO BID Qty: 60 11RF atorvastatin [Lipitor] 20 mg tablet 20 mg PO HS donepezil 10 mg tablet 10 mg PO HS Qty: 30 4RF Rx Instructions: His dose per clonazepam 1 mg tablet 1 mg PO HS 30 Days Qty: 30 2RF carbidopa-levodopa 25-100 mg tablet 1 tab PO BID Qty: 60 3RF multivitamin [Daily Multi-Vitamin] Tablet 1 tab PO PM levothyroxine 75 mcg tablet 75 mcg PO DAILYBB fludrocortisone 0.1 mg tablet 0.1 mg PO BID melatonin 3 mg Tablet 9 mg PO HS PRN (Reason: Insomnia) fluticasone propionate 50 mcg/actuation [place],Suspension 1 spray INTRANASAL BID PRN (Reason: Congestion) docusate sodium 100 mg Capsule 100 mg PO BID Qty: 60 0RF midodrine 2.5 mg tablet 2.5 mg PO QAM Rx Instructions: Hold if BP is higher than 140/80 venlafaxine 75 mg capsule,extended release 24hr 75 mg PO QAM hydrocortisone 0.5 % Cream 1 applic TOPICAL BID PRN (Reason: Dermatitis) guaifenesin 100 mg/5 mL Liquid 100 mg PO QID PRN (Reason: Cough/Congestion) Ensure Liquid 1 ea PO DAILY Rx Instructions: [place] flavor cholecalciferol (vitamin D3) [Vitamin D3] 25 mcg (1,000 unit) Tablet 75 mcg PO DAILY potassium chloride 20 mEq tablet extended release 20 meq PO DAILY polyethylene glycol 3350 [Miralax] 17 gram/dose powder 17 gm PO BID PRN (Reason: Constipation) Discharge Orders: Discharge Order (Routine); Ordered 10/15/24 Ordered By: Brandy Strange Admission Data Admit Date/Time: 10/11/24 17:33 Attending Provider: Brandy Strange Admit Provider: Endy Burris Primary Care Provider: Philip Whitfield Other Providers: Endy Burris; [facility]; [facility] Other Interventions: Discharge Summary Assessment (RN) Last Done: 10/15/24 13:43
[2024-10-15 10:34] VITALS: PULSE 72
== END 2024-10-15 13:50 | disposition home health service (06) | DRG 871 ==
LOC: ED 14:35 → 2S 17:33 → SUATTDRO 17:33 → 2S 19:15

== ENCOUNTER 2024-10-25 20:18 | Inpatient (IN) ==
--- NOTE | 2024-10-25 20:39 | Emergency Department Note ---
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 [facility] Stop: 11/25/24 20:59 Last Admin: 10/27/24 08:48 Dose: 17 gm Documented By: Admin: 10/26/24 20:58 Dose: 17 gm Documented By: REJI Potassium Chloride (Potassium Chloride Crtab 20 Meq Tabcr) 20 meq PO DAILY [facility] Stop: 11/25/24 08:59 Last Admin: 10/27/24 08:48 Dose: 20 meq Documented By: Admin: 10/26/24 09:55 Dose: 20 meq Documented By: MEGGAN Venlafaxine HCl (Venlafaxine Hcl Xr 75 Mg Capxr) 75 mg PO QAM [facility] Stop: 11/25/24 08:59 Last Admin: 10/27/24 08:44 Dose: 75 mg Documented By: Admin: 10/26/24 09:45 Dose: 75 mg Documented By: MEGGAN Vitamin D (Cholecalciferol 25 Mcg (1000 Units) Tab) 75 mcg PO DAILY [facility] Stop: 11/25/24 08:59 Last Admin: 10/27/24 08:43 Dose: 75 mcg Documented By: Admin: 10/26/24 09:46 Dose: 75 mcg Documented By: MEGGAN Discontinued Medications Acetaminophen (Ofirmev) 1,000 mg in 100 mls @ 400 mls/hr IV NOW STA Stop: 10/25/24 20:48 Last Infusion: 10/25/24 21:19 Dose: Infused Documented By: Admin: 10/25/24 20:51 Dose: 400 mls/hr Documented By: LUCAS Sodium Chloride (Nss) 1,000 mls @ 999 mls/hr IV .Q1H1M [facility] Stop: 10/25/24 22:45 Last Infusion: 10/25/24 22:59 Dose: Infused Documented By: Admin: 10/25/24 21:57 Dose: 999 mls/hr Documented By: Infusion: 10/25/24 21:55 Dose: Infused Documented By: Admin: 10/25/24 20:51 Dose: 999 mls/hr Documented By: LUCAS Piperacillin Sod/Tazobactam Sod (Zosyn) 4.5 gm in 100 mls @ 200 mls/hr IV NOW ONE; Protocol Stop: 10/25/24 21:06 Last Infusion: 10/25/24 21:27 Dose: Infused Documented By: Admin: 10/25/24 20:52 Dose: 200 mls/hr Documented By: LUCAS Sodium Chloride (Nss) 500 mls @ 999 mls/hr IV .Q31M ONE Stop: 10/25/24 23:11 Last Infusion: 10/26/24 00:02 Dose: Infused Documented By: Admin: 10/25/24 22:57 Dose: 999 mls/hr Documented By: LUCAS Potassium Chloride/Sodium Chloride (Normal Saline W/20 Meq Kcl) 20 meq in 1,000 mls @ 80 mls/hr IV .[id number] [facility] Stop: 10/26/24 12:14 Last Infusion: 10/26/24 13:25 Dose: Infused Documented By: Admin: 10/26/24 00:54 Dose: 80 mls/hr Documented By: SURESH Potassium Chloride (K Beni / Wtr) 10 meq in 100 mls @ 100 mls/hr IV Q1H [facility] Stop: 10/27/24 13:44 Last Infusion: 10/27/24 16:23 Dose: Infused Documented By: Admin: 10/27/24 14:10 Dose: 50 mls/hr Documented By: Infusion: 10/27/24 14:10 Dose: Infused Documented By: Admin: 10/27/24 12:19 Dose: 50 mls/hr Documented By: ELANA Ioversol (Optiray 320 100ml) 100 ml IV ONCE ONE Stop: 10/25/24 23:38 Last Admin: 10/25/24 23:37 Dose: 93 ml Documented By: GITA Imaging Data Radiologist's Impression: Chest X-Ray 10/25/24 20:34 Exam(s): XR CXR 1 VIEW EXAM: XR Chest, 1 View CLINICAL HISTORY: Reason for exam: Sepsis. TECHNIQUE: Frontal view of the chest. COMPARISON: October 11, 2024 FINDINGS: Lungs: See below. Pleural space: Increased density in the lower left hemithorax obscuring the diaphragm and costophrenic angle suggesting small pleural effusion and left basilar atelectasis or pneumonia. No pneumothorax. Heart: The cardiac silhouette is mildly enlarged, similar to previous. Mediastinum: Unremarkable. Normal mediastinal contour. Bones/joints: Unremarkable. No acute fracture. IMPRESSION: 1. Increased density in the lower left hemithorax obscuring the diaphragm and costophrenic angle suggesting small pleural effusion and left basilar atelectasis or pneumonia. 2. The cardiac silhouette is mildly enlarged, similar to previous. Electronically signed by: Oc Stokes MD 10/26/24 00:40 AM KUB X-Ray 10/25/24 20:49 Exam(s): XR KUB EXAM: XR Abdomen, 1 View CLINICAL HISTORY: Reason for exam: constipation, sepsis. TECHNIQUE: Frontal supine view of the abdomen/pelvis. COMPARISON: CT scan from October 11, 2024 FINDINGS: Gastrointestinal tract: There is dense stool in the distal colon and rectum with the rectum measuring up to 9 cm in diameter suggesting constipation. No dilated small bowel loops identified. Bones/joints: Mild osteoarthritic changes of both hips. Mild degenerative changes throughout the lumbar spine. No acute fracture. IMPRESSION: There is dense stool in the distal colon and rectum with the rectum measuring up to 9 cm in diameter suggesting constipation. Electronically signed by: Oc Stokes MD 10/26/24 00:41 AM Abdomen/Pelvis CT 10/25/24 22:43 Exam(s): CT ABDOMEN + PELVIS With Contrast IV Amt: 93 ML OPTIRAY 320 EXAM: CT Abdomen and Pelvis With Intravenous Contrast CLINICAL HISTORY: Reason for exam: urosepsis, constipation. TECHNIQUE: Axial computed tomography images of the abdomen and pelvis with intravenous contrast. CTDI is 13.97 mGy and DLP is 737.57 mGy-cm. Automated exposure control was utilized for the study. A dose lowering technique was utilized adhering to the principles of ALARA. CONTRAST: Patient received 93 ML OPTIRAY 320 of IV contrast COMPARISON: October 11, 2024 FINDINGS: Lung bases: See below. Pleural space: Small left pleural effusion layering posteriorly measuring 3 cm with adjacent partial left lower lobe atelectasis or pneumonia. Heart: Mild to moderate cardiomegaly with small pericardial effusion, partially visualized. There is moderate coronary calcification involve the right coronary artery. ABDOMEN: Liver: Unremarkable. No mass. Gallbladder and bile ducts: The gallbladder is contracted but otherwise unremarkable. No calcified stones. No ductal dilation. Pancreas: Unremarkable. No mass. No ductal dilation. Spleen: Unremarkable. No splenomegaly. Adrenals: Unremarkable. No mass. Kidneys and ureters: Unremarkable. No solid mass. No hydronephrosis. Stomach and bowel: Large amount of dense stool in the rectum which is dilated measuring 8 cm in diameter suggesting constipation. No mucosal thickening. PELVIS: Appendix: No findings to suggest acute appendicitis. Bladder: The urinary bladder is partially distended but within normal limits. Reproductive: Unremarkable as visualized. ABDOMEN and PELVIS: Intraperitoneal space: Unremarkable. No free air. No significant fluid collection. Bones/joints: Mild degenerative changes throughout the spine. No acute fracture or subluxation is seen. Soft tissues: Unremarkable. Vasculature: The abdominal aorta is mildly calcified but nondilated. Lymph nodes: Unremarkable. No enlarged lymph nodes. IMPRESSION: 1. Large amount of dense stool in the rectum which is dilated measuring 8 cm in diameter suggesting constipation. 2. Small left pleural effusion layering posteriorly measuring 3 cm with adjacent partial left lower lobe atelectasis or pneumonia. Electronically signed by: Oc Stokes MD 10/26/24 00:47 AM Discharge Plan Visit Data Chief Complaint: Confusion Stated Complaint: CONFUSION ED Provider: Duarte Giron Discharge Problem: Sepsis, Acute UTI, UTI (urinary tract infection), Constipation, Confusion Patient Disposition: Admitted As Inpatient Discharge Instructions Interventions: ED Discharge Assessment Last Done: 10/26/24 00:35 Discharge Problem: Sepsis Qualifiers: Sepsis type: sepsis due to unspecified organism Sepsis acute organ dysfunction status: with acute organ dysfunction Severe sepsis acute organ dysfunction type: unspecified Severe sepsis shock status: without septic shock Qualified Code(s): A41.9 - Sepsis, unspecified organism UTI (urinary tract infection) Qualifiers: Urinary tract infection type: acute cystitis Hematuria presence: with hematuria Qualified Code(s): N30.01 - Acute cystitis with hematuria Constipation Qualifiers: Constipation type: unspecified constipation type Qualified Code(s): K59.00 - Constipation, unspecified
[2024-10-25] MEDS: ACETAMINOPHEN 1,000 MG/100 ML VIAL IV STA (20:51)
[2024-10-25] MEDS: SODIUM CHLORIDE 0.9% 1,000 ML IV SCH (20:51)
[2024-10-25] MEDS: PIPERACILLIN/TAZOBACTAM 4.5 GM/100 ML BAG IV ONE (20:52)
[2024-10-25 20:56] LABS: Basophils # (auto) 0.05 K/uL (0.00-0.20); Basophils % (auto) 0.3 %; Eosinophils # (auto) 0.14 K/uL (0.00-0.50); Eosinophils % (auto) 0.8 %; Hematocrit (blood only) 35.3 % (42.0-52.0); Hemoglobin 11.8 g/dl (14.0-18.0); Immature Granulocytes # (auto) 0.05 K/uL (0.01-0.20); Immature Granulocytes % (auto) 0.3 %; Lymphocytes # (auto) 0.89 K/uL (1.20-3.40); Mean Corpuscular Hemoglobin 30.3 pg (25.0-34.0); Mean Corpuscular Hgb Conc 33.4 g/dL (32.0-36.0); Mean Corpuscular Volume 90.5 fL (80.0-100.0); Mean Platelet Volume 10.5 fL (9.4-12.4); Monocytes # (auto) 0.84 K/uL (0.11-0.59); Monocytes % (auto) 4.7 %; Neutrophils # (auto) 15.97 K/uL (1.40-6.50); Neutrophils % (auto) 88.9 %; Platelet Count 235 K/uL (130-400); RDW Coefficient of Variation 14.2 % (11.5-14.5); RDW Standard Deviation 46.8 fL (36.4-46.3); White Blood Count 17.94 K/ul (4.8-10.8)
[2024-10-25 21:18] LABS: Troponin I High Sensitivity 11.2 pg/ml (0-20)
[2024-10-25 21:19] LABS: Appearance Urine Turbid (Clear); Bacteria Urine Automated 4+ (None Seen); Bilirubin Urine Negative (Negative); Blood Urine 2+ (Negative); Calcium Oxalate Crystals Urine Present (None Prsent); Color Urine Yellow; Epithelial Cell Urine Auto 0-2 /hpf (0-2); Glucose Urine UA Negative (Negative); Ketones Urine Trace (Negative); Leukocyte Esterase Urine 3+ (Negative); Nitrite Urine Negative (Negative); Protein Urine 2+ (Negative); RBC Urine Automated >20 /hpf (0-2); Urobilinogen Urine Negative (Negative); WBC Urine Automated >50 /hpf (0-5)
[2024-10-25 21:29] LABS: Prothrombin Time 11.3 Seconds (9.0-12.0)
[2024-10-25 22:01] LABS: Adenovirus PCR Not Detected (NotDetected); Bordetella parapertussis PCR Not Detected (NotDetected); Bordetella pertussis PCR Not Detected (NotDetected); Chlamydia pneumoniae PCR Not Detected (NotDetected); Coronavirus 229E PCR Not Detected (NotDetected); Coronavirus CoV-2 (COVID19)PCR Not Detected (NotDetected); Coronavirus HKU1 PCR Not Detected (NotDetected); Coronavirus NL63 PCR Not Detected (NotDetected); Coronavirus OC43PCR Not Detected (NotDetected); Human Metapneumovirus PCR Not Detected (NotDetected); Influenza A PCR Not Detected (NotDetected); Influenza B PCR Not Detected (NotDetected); Mycoplasma pneumoniae PCR Not Detected (NotDetected); Parainfluenza Virus 1 PCR Not Detected (NotDetected); Parainfluenza Virus 2 PCR Not Detected (NotDetected); Parainfluenza Virus 3 PCR Not Detected (NotDetected); Parainfluenza Virus 4 PCR Not Detected (NotDetected); Respiratory Syncytial VirusPCR Not Detected (NotDetected); Rhinovirus/Enterovirus PCR Not Detected (NotDetected)
[2024-10-25 22:38] LABS: Albumin Level 3.9 gm/dl (3.4-5.0); BUN Creatinine Ratio 19.5 (10-20); Bilirubin Direct 0.2 mg/dl (0-0.2); Bilirubin,Total 0.8 mg/dl (0.2-1.0); Calcium 8.9 mg/dl (8.6-10.3); Magnesium 1.9 mg/dl (1.7-2.4); Potassium 4.1 mmol/L (3.5-5.1); Total Protein 7.1 gm/dl (6.0-8.3)
[2024-10-25] MEDS: SODIUM CHLORIDE 0.9% 500 ML IV ONE (22:57)
[2024-10-25] MEDS: OPTIRAY 320 100ml IV ONE (23:37)
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
[2024-10-26] MEDS ORDERED: POLYETHYLENE (MIRALAX) 17 GM PACK PO PRN (00:34)
[2024-10-26] MEDS ORDERED: ACETAMINOPHEN 325 MG TAB PO PRN (00:34)
[2024-10-26] MEDS ORDERED: guaiFENesin SUGAR FREE 100 MG/5 ML UDC PO PRN (00:34)
--- NOTE | 2024-10-26 00:40 | XRay Report ---
Exam(s): XR CXR 1 VIEW EXAM: XR Chest, 1 View CLINICAL HISTORY: Reason for exam: Sepsis. TECHNIQUE: Frontal view of the chest. COMPARISON: October 11, 2024 FINDINGS: Lungs: See below. Pleural space: Increased density in the lower left hemithorax obscuring the diaphragm and costophrenic angle suggesting small pleural effusion and left basilar atelectasis or pneumonia. No pneumothorax. Heart: The cardiac silhouette is mildly enlarged, similar to previous. Mediastinum: Unremarkable. Normal mediastinal contour. Bones/joints: Unremarkable. No acute fracture. IMPRESSION: 1. Increased density in the lower left hemithorax obscuring the diaphragm and costophrenic angle suggesting small pleural effusion and left basilar atelectasis or pneumonia. 2. The cardiac silhouette is mildly enlarged, similar to previous. Electronically signed by: Oc Stokes MD 10/26/24 00:40 AM
--- NOTE | 2024-10-26 00:41 | XRay Report ---
Exam(s): XR KUB EXAM: XR Abdomen, 1 View CLINICAL HISTORY: Reason for exam: constipation, sepsis. TECHNIQUE: Frontal supine view of the abdomen/pelvis. COMPARISON: CT scan from October 11, 2024 FINDINGS: Gastrointestinal tract: There is dense stool in the distal colon and rectum with the rectum measuring up to 9 cm in diameter suggesting constipation. No dilated small bowel loops identified. Bones/joints: Mild osteoarthritic changes of both hips. Mild degenerative changes throughout the lumbar spine. No acute fracture. IMPRESSION: There is dense stool in the distal colon and rectum with the rectum measuring up to 9 cm in diameter suggesting constipation. Electronically signed by: Oc Stokes MD 10/26/24 00:41 AM
--- NOTE | 2024-10-26 00:48 | CT Scan Report ---
Exam(s): CT ABDOMEN + PELVIS With Contrast IV Amt: 93 ML OPTIRAY 320 EXAM: CT Abdomen and Pelvis With Intravenous Contrast CLINICAL HISTORY: Reason for exam: urosepsis, constipation. TECHNIQUE: Axial computed tomography images of the abdomen and pelvis with intravenous contrast. CTDI is 13.97 mGy and DLP is 737.57 mGy-cm. Automated exposure control was utilized for the study. A dose lowering technique was utilized adhering to the principles of ALARA. CONTRAST: Patient received 93 ML OPTIRAY 320 of IV contrast COMPARISON: October 11, 2024 FINDINGS: Lung bases: See below. Pleural space: Small left pleural effusion layering posteriorly measuring 3 cm with adjacent partial left lower lobe atelectasis or pneumonia. Heart: Mild to moderate cardiomegaly with small pericardial effusion, partially visualized. There is moderate coronary calcification involve the right coronary artery. ABDOMEN: Liver: Unremarkable. No mass. Gallbladder and bile ducts: The gallbladder is contracted but otherwise unremarkable. No calcified stones. No ductal dilation. Pancreas: Unremarkable. No mass. No ductal dilation. Spleen: Unremarkable. No splenomegaly. Adrenals: Unremarkable. No mass. Kidneys and ureters: Unremarkable. No solid mass. No hydronephrosis. Stomach and bowel: Large amount of dense stool in the rectum which is dilated measuring 8 cm in diameter suggesting constipation. No mucosal thickening. PELVIS: Appendix: No findings to suggest acute appendicitis. Bladder: The urinary bladder is partially distended but within normal limits. Reproductive: Unremarkable as visualized. ABDOMEN and PELVIS: Intraperitoneal space: Unremarkable. No free air. No significant fluid collection. Bones/joints: Mild degenerative changes throughout the spine. No acute fracture or subluxation is seen. Soft tissues: Unremarkable. Vasculature: The abdominal aorta is mildly calcified but nondilated. Lymph nodes: Unremarkable. No enlarged lymph nodes. IMPRESSION: 1. Large amount of dense stool in the rectum which is dilated measuring 8 cm in diameter suggesting constipation. 2. Small left pleural effusion layering posteriorly measuring 3 cm with adjacent partial left lower lobe atelectasis or pneumonia. Electronically signed by: Oc Stokes MD 10/26/24 00:47 AM
[2024-10-26] MEDS: NSS + 20MEQ KCL 20 MEQ/1,000 ML BAG IV SCH (00:54)
[2024-10-26] MEDS ORDERED: HYDROCORTISONE 2.5% CR 30 GM TUBE EXT PRN (00:55)
[2024-10-26] MEDS ORDERED: bisacodyL 10 MG SUPP PR PRN (03:23)
[2024-10-26] MEDS: PIPERACILLIN/TAZOBACTAM 4.5 GM/100 ML BAG IV SCH (05:31)
[2024-10-26] MEDS: LEVOTHYROXINE SODIUM 75 MCG TABLET PO SCH (07:38)
[2024-10-26] MEDS ORDERED: NON-FORMULARY MEDICATION (Food Supplemt, Lactose-Reduced [Ensure] Liquid) PO SCH (09:00)
[2024-10-26] MEDS: MIDODRINE HCL 2.5 MG TAB PO SCH (09:45)
[2024-10-26] MEDS: CARBIDOPA/LEVODOPA 25/100MG TAB PO SCH (09:45)
[2024-10-26] MEDS: VENLAFAXINE HCL XR 75 MG CAPXR PO SCH (09:45)
[2024-10-26] MEDS: APIXABAN 5 MG TABLET PO SCH (09:45)
[2024-10-26] MEDS: FLUDROCORTISONE ACETATE 0.1 MG TAB PO SCH (09:45)
[2024-10-26] MEDS: CHOLECALCIFEROL 25 MCG (1000 UNITS) TAB PO SCH (09:46)
[2024-10-26] MEDS: POTASSIUM CHLORIDE CRTAB 20 MEQ TABCR PO SCH (09:55)
[2024-10-26] MEDS: DOCUSATE SODIUM 100 MG CAP PO SCH (09:55)
--- NOTE | 2024-10-26 10:36 | Hospitalist Progress Note ---
Date of Service October 26, 2024 Assessment & Plan (1) Neurogenic bladder: (2) Sepsis due to urinary tract infection: (3) Confusion: Plan The patient is a 84-year-old male with a past medical history including multifocal pneumonia, atrial fibrillation, atrial fibrillation with RVR, Parkinson's disease, hypothyroidism, syncope, REM sleep behavior disorder, stercoral colitis, history of acute encephalopathy, neurogenic bladder, history recurrent urinary tract infections, lumbar postlaminectomy syndrome, memory loss, BPH with LUTS and history of hypotension. The patient has had recent admissions from 08/31-09/01/2024, and more recently was treated for multifocal pneumonia from 10/11-10/15/2024. His daughter reports that he appeared to recover from the pneumonia, however, she notes over the past few days that he was beginning develop some worsening confusion, and was noted to have change in urine function. Workup in the emergency department revealed a chest x-ray that was significantly improved compared to 10/11/2024, BioFire was negative, and urinalysis was suggestive of urinary tract infection. [facility] Of note, patient does perform self-catheterization, and wears a condom catheter. # Sepsis due to urinary tract infection/neurogenic bladder/BPH with LUTS- Follow urine culture and sensitivity Continue Zosyn 4.5 g IV every 8 hours begun in the ED Condom catheter used as an outpatient Initial symptoms of confusion, somewhat improved after receiving initial IV fluid bolus of 2.5 L in the ED Acetaminophen 1 g IV every 8 hours needed for mild pain or fever NSS + KCl 20 mEq at 80 mL/h x 1 L Respiratory BioFire testing negative Acute Encephalopathy Likely due to UTI Now improved as corroborated by the daughter Will continue to monitor Multifocal pneumonia- Most recent admission from 10/11-10/15/2024 Chest x-ray significantly improved and normalized, with no pulmonary symptoms at this time Likely associated aspiration, and placed on aspiration precautions Atrial fibrillation/chronic anticoagulation with apixaban- Continue apixaban 5 mg p.o. twice daily, potassium chloride 20 mill equivalents p.o. daily Chronic medical issues: Hypothyroidism-continue levothyroxine Hypotension-continue midodrine and fludrocortisone Dementia/memory loss/Parkinson's-continue carbidopa levodopa, donepezil Hyperlipidemia-continue atorvastatin DNR/DNI Admit to med surg Admission and Anticipated Discharge Date Admission Date: October 25, 2024 Subjective patient seen and examined, his confusion seems to have improved Review of Systems Review of Systems: All systems reviewed are negative, apart from the ones contained in the history. Physical Exam Physical Exam: The patient is awake, alert and oriented 3, well developed and well nourished, normocephalic and atraumatic, lying in bed and in no acute distress. HEENT--PERRL, EOMI, mucous membranes and oropharynx mildly dry Neck--supple. No JVD. No bruits. Thyroid normal, trachea midline, no adenopathy. Heart--normal S1 and S2. No murmurs, rubs or gallops. Lungs--clear bilaterally, no respiratory distress, no accessory muscle use. Abdomen--normal bowel sounds and soft. Extremities--no cyanosis or clubbing. No edema. Dermatologic--normal skin turgor, normal color, no abnormal lymph nodes, no rash. Neurologic--cranial nerves II through XII grossly intact. Rheumatologic--normal range of motion. Psychiatric--normal affect. Results & Data Results & Data Vital Signs (Past 12 Hours) Vital Signs Temp Pulse Pulse Resp BP BP Pulse Ox 10/26/24 07:15 99.5 F 95 H 19 158/97 H 94 10/26/24 07:06 106 H 10/26/24 06:00 105 H 14 156/85 H 95 10/26/24 05:15 94 H 10/26/24 05:00 101 H 22 148/85 H 94 10/26/24 04:06 84 10/26/24 04:00 85 15 138/91 98 10/26/24 03:00 86 16 145/101 H 97 10/26/24 02:00 82 18 127/84 97 10/26/24 01:00 88 18 126/84 94 10/26/24 00:34 10/26/24 00:30 99 H 15 123/73 94 10/26/24 00:00 104 H 12 142/104 H 96 10/25/24 23:00 101 H 19 137/81 94 Pulse Ox O2 Del Method O2 Del Method 10/26/24 07:15 Room Air 10/26/24 07:06 10/26/24 06:00 Room Air 10/26/24 05:15 10/26/24 05:00 Room Air 10/26/24 04:06 10/26/24 04:00 Room Air 10/26/24 03:00 Room Air 10/26/24 02:00 Room Air 10/26/24 01:00 Room Air 10/26/24 00:34 94 Room Air 10/26/24 00:30 Room Air 10/26/24 00:00 Room Air 10/25/24 23:00 Room Air PG Care Time/CCT Total # of Minutes Spent Total Time Spent with Patient: Total time spent is greater than 50% in coordination of care (as documented) at patient's floor/unit and/or counseling patient: Coding Level of Care Code 85430 SUB INP/OBS CARE 2/35MIN Diagnoses Neurogenic bladder N31.9 Sepsis due to urinary tract infection A41.9; N39.0 Confusion R41.0 Time Spent (min) 35
[2024-10-26] MEDS: clonazePAM 1 MG TAB PO SCH (20:58)
[2024-10-26] MEDS: ATORVASTATIN 20 MG TAB PO SCH (20:58)
[2024-10-26] MEDS: POLYETHYLENE (MIRALAX) 17 GM PACK PO SCH (20:58)
[2024-10-26] MEDS: MELATONIN 3 MG TAB PO PRN (20:58)
[2024-10-26] MEDS: DONEPEZIL HCL 10 MG TAB PO SCH (20:58)
[2024-10-26] MEDS: MULTIVITAMIN TAB PO SCH (20:58)
--- NOTE | 2024-10-26 21:35 | Electrocardiogram Report ---
Test Reason : Blood Pressure : */* mmHG Vent. Rate : 139 BPM Atrial Rate : * BPM P-R Int : * ms QRS Dur : 78 ms QT Int : 308 ms P-R-T Axes : * 19 24 degrees QTcB Int : 468 ms Atrial fibrillation with rapid ventricular response Low voltage QRS Septal infarct (cited on or before 11-Oct-2024) Abnormal ECG When compared with ECG of 11-Oct-2024 14:57, QRS axis Shifted right Nonspecific T wave abnormality now evident in Inferior leads Confirmed by Sánchez Jaimes ([id number]) on 10/26/2024 9:34:42 PM Referred By: REFERRED SELF Confirmed By: Sánchez Jaimes
[2024-10-27 06:35] LABS: Hematocrit (blood only) 30.2 % (42.0-52.0); Hemoglobin 10.1 g/dl (14.0-18.0); Mean Corpuscular Hemoglobin 30.2 pg (25.0-34.0); Mean Corpuscular Hgb Conc 33.4 g/dL (32.0-36.0); Mean Corpuscular Volume 90.4 fL (80.0-100.0); Mean Platelet Volume 10.7 fL (9.4-12.4); Platelet Count 163 K/uL (130-400); RDW Coefficient of Variation 14.3 % (11.5-14.5); RDW Standard Deviation 46.8 fL (36.4-46.3); Red Blood Count 3.34 M/uL (4.70-6.10); White Blood Count 11.19 K/ul (4.8-10.8)
[2024-10-27 07:06] LABS: BUN Creatinine Ratio 17.1 (10-20); Calcium 8.3 mg/dl (8.6-10.3); Potassium 3.2 mmol/L (3.5-5.1)
--- NOTE | 2024-10-27 10:21 | Hospitalist Progress Note ---
Date of Service October 27, 2024 Assessment & Plan (1) Sepsis due to urinary tract infection: Plan: Continue Zosyn 4.5 g IV every 8 hours begun in the ED Condom catheter used as an outpatient Resolving (2) Neurogenic bladder: Plan: -condom catheter (3) Confusion: Plan: -encephalopathy 2nd to UTI Plan Atrial fibrillation/chronic anticoagulation with apixaban- Continue apixaban 5 mg p.o. twice daily, potassium chloride 20 mill equivalents p.o. daily Chronic medical issues: Hypothyroidism-continue levothyroxine Hypotension-continue midodrine and fludrocortisone Dementia/memory loss/Parkinson's-continue carbidopa levodopa, donepezil Hyperlipidemia-continue atorvastatin DNR/DNI PT evaluation Plan to d/c 10/28 Admission and Anticipated Discharge Date Admission Date: October 25, 2024 Subjective Pt seen and examined, no events overnight. He is answering questing appropriately. Review of Systems Review of Systems: CONST: Negative for fever, body aches and chills. HENT: Negative for neck pain/stiffness, headache, congestion, sore throat, swelling. EYES: Negative for discharge/pain or vision changes. RESP: Negative for cough/hemoptysis and shortness of breath. CV: Negative chest pain, difficulty breathing, palpitations. ABD: Negative pain, nausea, vomiting. : Negative increase frequency, dysuria, blood in urine or stool. MUSC: Negative for muscle aches, edema. SKIN: Negative rash, lesions/sores. NEURO: Negative headache, dizziness, weakness. Physical Exam Physical Exam: GENERAL APPEARANCE NAD, activity normal for age, well developed/ well nourished, no cyanosis, pallor, or diaphoresis. EYES lids/conjunctiva normal. EARS/NOSE/THROAT Mucous membranes moist, nares normal, lips/teeth normal uvula midline without oral pharyngeal erythema, exudate or swelling TMs normal bilaterally. No lymphangitis/lymphedema. HEAD/NECK normocephalic atraumatic, no facial trauma, neck is supple. RESPIRATORY respiratory effort normal, speaks in full sentences, no tripod position, no accessory muscle use. Lungs clear to auscultation without rhonchi, wheezes, rales CARDIAC Regular rate and rhythm, no edema. ABDOMINAL Soft, ND/NT. No evidence of fluid wave. No pulsatile masses on exam, rebound tenderness, Garcia sign or pain over Mcburney's point. MUSCLES/EXTREMITIES No abnormal range of motion, no swelling. SKIN Warm, pink and dry. No rashes, dermatoses, petechiae or lesions. NEUROLOGICAL Speech is clear and appropriate. Normal level of consciousness. Gait and coordination are normal. 5/5 strength in all extremities. PSYCH Normal mood and affect. Judgement/competence is appropriate Results & Data Results & Data Vital Signs (Past 12 Hours) Vital Signs Temp Pulse Pulse Resp BP Pulse Ox O2 Del Method 10/27/24 08:09 85 10/27/24 07:31 36.6 C 80 18 161/80 H 97 Room Air 10/27/24 03:31 36.7 C 87 18 151/78 H 97 Room Air PG Care Time/CCT Total # of Minutes Spent Total Time Spent with Patient: Total time spent is greater than 50% in coordination of care (as documented) at patient's floor/unit and/or counseling patient: Coding Level of Care Code 02168 SUB INP/OBS CARE 2/35MIN Diagnoses Sepsis due to urinary tract infection A41.9; N39.0 Neurogenic bladder N31.9 Confusion R41.0
[2024-10-27] MEDS: POTASSIUM CHLORIDE / WTR 10 MEQ/100 ML PLCT IV SCH (12:19)
[2024-10-27] MEDS: MAGNESIUM HYDROXIDE SUSP 30 ML UDC PO PRN (16:28)
--- NOTE | 2024-10-28 09:59 | Discharge Summary ---
Discharge Summary Date of Service October 28, 2024 Principal Dx & Hospital Course #1 = Principal Diagnosis (1) Sepsis due to urinary tract infection: Continue Zosyn 4.5 g IV every 8 hours begun in the ED Condom catheter used as an outpatient Resolving d/c on cipro (2) Neurogenic bladder: -condom catheter (3) Confusion: -encephalopathy 2nd to UTI Plan Atrial fibrillation/chronic anticoagulation with apixaban- Continue apixaban 5 mg p.o. twice daily, potassium chloride 20 mill equivalents p.o. daily Chronic medical issues: Hypothyroidism-continue levothyroxine Hypotension-continue midodrine and fludrocortisone Dementia/memory loss/Parkinson's-continue carbidopa levodopa, donepezil Hyperlipidemia-continue atorvastatin DNR/DNI PT evaluation Plan to d/c 10/28 Admission HPI Per Admitting Provider The patient is a 84-year-old male with a past medical history including multifocal pneumonia, atrial fibrillation, atrial fibrillation with RVR, Parkinson's disease, hypothyroidism, syncope, REM sleep behavior disorder, stercoral colitis, history of acute encephalopathy, neurogenic bladder, history recurrent urinary tract infections, lumbar postlaminectomy syndrome, memory loss, BPH with LUTS and history of hypotension. The patient has had recent admissions from 08/31-09/01/2024, and more recently was treated for multifocal pneumonia from 10/11-10/15/2024. His daughter reports that he appeared to recover from the pneumonia, however, she notes over the past few days that he was beginning develop some worsening confusion, and was noted to have change in urine function. Workup in the emergency department revealed a chest x-ray that was significantly improved compared to 10/11/2024, BioFire was negative, and urinalysis was suggestive of urinary tract infection. He was then referred for evaluation for [facility]. Discharge Exam GENERAL APPEARANCE NAD, activity normal for age, well developed/ well nourished, no cyanosis, pallor, or diaphoresis. EYES lids/conjunctiva normal. EARS/NOSE/THROAT Mucous membranes moist, nares normal, lips/teeth normal uvula midline without oral pharyngeal erythema, exudate or swelling TMs normal bilaterally. No lymphangitis/lymphedema. HEAD/NECK normocephalic atraumatic, no facial trauma, neck is supple. RESPIRATORY respiratory effort normal, speaks in full sentences, no tripod position, no accessory muscle use. Lungs clear to auscultation without rhonchi, wheezes, rales CARDIAC Regular rate and rhythm, no edema. ABDOMINAL Soft, ND/NT. No evidence of fluid wave. No pulsatile masses on exam, rebound tenderness, Garcia sign or pain over Mcburney's point. MUSCLES/EXTREMITIES No abnormal range of motion, no swelling. SKIN Warm, pink and dry. No rashes, dermatoses, petechiae or lesions. NEUROLOGICAL Speech is clear and appropriate. Normal level of consciousness. Gait and coordination are normal. 5/5 strength in all extremities. PSYCH Normal mood and affect. Judgement/competence is appropriate Discharge Plan Discharge Items Patient Disposition: Home - Self-Care Reason For Visit: SEPSIS DUE TO UTI Discharge Diagnosis: sepsis due to UTI Activity: Resume your previous activity Non-emergency contact: Primary Care Provider Call non-emergency contact if: you have any medication questions Follow-up/Referrals: Philip Whitfield MD [Primary Care Provider] - Diet: Regular Addtl Attending Provider Instructions: Follow up with PMD in 2 weeks Pending Studies at Discharge: No Stand-Alone Forms: My [facility] [employer], Smoking Cessation Medications and DC Order Prescriptions: New ciprofloxacin HCl [Cipro] 250 mg tablet 250 mg PO BID Qty: 14 0RF Continued atorvastatin [Lipitor] 20 mg tablet 20 mg PO QAM donepezil 10 mg tablet 10 mg PO HS Qty: 30 4RF Rx Instructions: His dose per carbidopa-levodopa 25-100 mg tablet 1 tab PO BID Qty: 60 3RF multivitamin [Daily Multi-Vitamin] Tablet 1 tab PO QAM levothyroxine 75 mcg tablet 75 mcg PO DAILYBB fludrocortisone 0.1 mg tablet 0.1 mg PO BID melatonin 3 mg Tablet 9 mg PO HS PRN (Reason: Insomnia) fluticasone propionate 50 mcg/actuation [place],Suspension 1 spray INTRANASAL BID PRN (Reason: Congestion) docusate sodium 100 mg Capsule 100 mg PO BID Qty: 60 0RF clonazepam 1 mg tablet 1 mg PO HS Eliquis 5 mg tablet 5 mg PO BID docusate sodium 100 mg Capsule 100 mg PO QAM midodrine 2.5 mg tablet 2.5 mg PO DAILY PRN (Reason: Orthostatic Hypotension) Rx Instructions: Give if Blood Pressure is less than 90/60 mmhg or feeling dizzy, do NOT give if blood pressure is higher than 130/80 mmhg venlafaxine 75 mg capsule,extended release 24hr 75 mg PO QAM hydrocortisone 0.5 % Cream 1 applic TOPICAL BID PRN (Reason: Dermatitis) Ensure Liquid 1 ea PO DAILY Rx Instructions: [place] flavor cholecalciferol (vitamin D3) [Vitamin D3] 25 mcg (1,000 unit) Tablet 25 mcg PO BID potassium chloride 20 mEq tablet extended release 0 meq PO QAM Rx Instructions: Per family, pt cannot swallow this pill anymore. Ask for liquid to be given while in the hospital if possible. Original Directions: 20meq by mouth every morning polyethylene glycol 3350 [Miralax] 17 gram/dose powder 17 gm PO QAM Admission Data Admit Date/Time: 10/25/24 23:39 Attending Provider: Saeed Rodriguez Admit Provider: Jude Pennington Primary Care Provider: Philip Whitfield Other Providers: Jude Pennington; [facility]; [facility] Hospital Stay Data Consultations 10/25/24 22:41 ED Decision to Admit Stat Diagnostic Imagining Performed 10/25/24 22:43 CT abd pelvis IV con only Stat Pending Results Patient Have Any Pending Studies at Discharge: No Discharge Instructions Given to Patient (Per Discharging Provider) Follow up with PMD in 2 weeks Total Time Total Time Spent Total Time Spent (In Minutes): 50 Coding Level of Care Code 07828 INP/OBS DISCH >30 MIN Diagnoses Sepsis due to urinary tract infection A41.9; N39.0 Neurogenic bladder N31.9 Confusion R41.0
[2024-10-28] MEDS ORDERED: LAVAGE SOLUTION 4000ML PO SCH (14:00)
[2024-10-28] MEDS: LAVAGE SOLUTION 4000ML PO SCH (15:03)
--- NOTE | 2024-10-29 09:39 | Hospitalist Progress Note ---
Date of Service October 29, 2024 Assessment & Plan (1) Sepsis due to urinary tract infection: Plan: Continue Zosyn 4.5 g IV every 8 hours begun in the ED Condom catheter used as an outpatient Resolving d/c on cipro (2) Neurogenic bladder: Plan: -condom catheter (3) Confusion: Plan: -encephalopathy 2nd to UTI Plan Atrial fibrillation/chronic anticoagulation with apixaban- Continue apixaban 5 mg p.o. twice daily, potassium chloride 20 mill equivalents p.o. daily Chronic medical issues: Hypothyroidism-continue levothyroxine Hypotension-continue midodrine and fludrocortisone Dementia/memory loss/Parkinson's-continue carbidopa levodopa, donepezil Hyperlipidemia-continue atorvastatin DNR/DNI PT evaluation Plan to d/c 10/29 Admission and Anticipated Discharge Date Admission Date: October 25, 2024 Subjective Pt seen and examined, no events overnight. He is answering questing appropriately. Pt had large BM last night. Review of Systems Review of Systems: CONST: Negative for fever, body aches and chills. HENT: Negative for neck pain/stiffness, headache, congestion, sore throat, swelling. EYES: Negative for discharge/pain or vision changes. RESP: Negative for cough/hemoptysis and shortness of breath. CV: Negative chest pain, difficulty breathing, palpitations. ABD: Negative pain, nausea, vomiting. : Negative increase frequency, dysuria, blood in urine or stool. MUSC: Negative for muscle aches, edema. SKIN: Negative rash, lesions/sores. NEURO: Negative headache, dizziness, weakness. Physical Exam Physical Exam: GENERAL APPEARANCE NAD, activity normal for age, well developed/ well nourished, no cyanosis, pallor, or diaphoresis. EYES lids/conjunctiva normal. EARS/NOSE/THROAT Mucous membranes moist, nares normal, lips/teeth normal uvula midline without oral pharyngeal erythema, exudate or swelling TMs normal bilaterally. No lymphangitis/lymphedema. HEAD/NECK normocephalic atraumatic, no facial trauma, neck is supple. RESPIRATORY respiratory effort normal, speaks in full sentences, no tripod position, no accessory muscle use. Lungs clear to auscultation without rhonchi, wheezes, rales CARDIAC Regular rate and rhythm, no edema. ABDOMINAL Soft, ND/NT. No evidence of fluid wave. No pulsatile masses on exam, rebound tenderness, Garcia sign or pain over Mcburney's point. MUSCLES/EXTREMITIES No abnormal range of motion, no swelling. SKIN Warm, pink and dry. No rashes, dermatoses, petechiae or lesions. NEUROLOGICAL Speech is clear and appropriate. Normal level of consciousness. Gait and coordination are normal. 5/5 strength in all extremities. PSYCH Normal mood and affect. Judgement/competence is appropriate Results & Data Results & Data Vital Signs (Past 12 Hours) Vital Signs Temp Pulse Pulse Resp BP BP Pulse Ox 10/29/24 07:42 10/29/24 07:37 36.5 C 98 H 18 157/89 H 98 10/29/24 03:33 36.5 C 92 H 18 163/102 H 97 10/28/24 22:19 37.2 C 101 H 18 156/86 H 93 10/28/24 21:51 110 H O2 Del Method 10/29/24 07:42 Room Air 10/29/24 07:37 Room Air 10/29/24 03:33 Room Air 10/28/24 22:19 Room Air 10/28/24 21:51 PG Care Time/CCT Total # of Minutes Spent Total Time Spent with Patient: Total time spent is greater than 50% in coordination of care (as documented) at patient's floor/unit and/or counseling patient: Coding Level of Care Code 69566 SUB INP/OBS CARE 2/35MIN Diagnoses Sepsis due to urinary tract infection A41.9; N39.0 Neurogenic bladder N31.9 Confusion R41.0
[2024-10-29 11:42] VITALS: RESP 16; TEMP 97.9; O2SAT 99
[2024-10-29 15:31] VITALS: BP 156/86; PULSE 90
== END 2024-10-29 16:16 | disposition home health service (06) | DRG 872 ==
LOC: ED 20:18 → EDINP 23:39 → SUATTDRO 23:39 → 2N 10-26 00:35

== ENCOUNTER 2024-12-01 18:16 | Inpatient (IN) ==
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
--- NOTE | 2024-12-01 19:13 | XRay Report ---
Clinical History: Sepsis Technique: A frontal view of the chest was obtained Comparison is made to the prior examination dated 11/13/2024 Findings: There is worsened left lower lobe infiltrate, consistent with pneumonia. There is suspected mild patchy right lung base infiltrate as well. The heart size is within normal limits. No right pleural effusion or pneumothorax is seen. There is a small left pleural effusion No fracture is noted. No foreign body is seen Impression: 1. Left worse than right pneumonia 2. Small left pleural effusion ACT 112: Positive. There are findings on this exam that require communication between the performing entity and the patient following Patient Test Result Information Act ([place] ACT 112) guidelines. Electronically signed by Esdras Ramirez 12-01-2024 7:13 PM
[2024-12-01] MEDS: CEFEPIME 2000MG 2,000 MG/20 ML SYR IV STA (19:36)
[2024-12-01] MEDS: SODIUM CHLORIDE 0.9% 1,000 ML IV SCH (19:39)
[2024-12-01] MEDS: IBUPROFEN 200 MG TAB PO STA (19:39)
[2024-12-01 19:50] LABS: Basophils # (auto) 0.01 K/uL (0.00-0.20); Basophils % (auto) 0.1 %; Eosinophils # (auto) 0.02 K/uL (0.00-0.50); Eosinophils % (auto) 0.2 %; Hematocrit (blood only) 33.8 % (42.0-52.0); Hemoglobin 11.3 g/dl (14.0-18.0); Immature Granulocytes # (auto) 0.05 K/uL (0.01-0.20); Immature Granulocytes % (auto) 0.5 %; Lymphocytes # (auto) 0.52 K/uL (1.20-3.40); Lymphocytes % (auto) 4.8 %; Mean Corpuscular Hemoglobin 30.2 pg (25.0-34.0); Mean Corpuscular Hgb Conc 33.4 g/dL (32.0-36.0); Mean Corpuscular Volume 90.4 fL (80.0-100.0); Monocytes # (auto) 0.56 K/uL (0.11-0.59); Monocytes % (auto) 5.2 %; Neutrophils % (auto) 89.2 %; Platelet Count 159 K/uL (130-400); RDW Coefficient of Variation 13.3 % (11.5-14.5); RDW Standard Deviation 44.6 fL (36.4-46.3); Red Blood Count 3.74 M/uL (4.70-6.10); White Blood Count 10.76 K/ul (4.8-10.8)
[2024-12-01 20:13] LABS: INR 1.1 (0.9-1.1); Prothrombin Time 11.4 Seconds (9.0-12.0)
[2024-12-01 20:16] LABS: Albumin Level 3.7 gm/dl (3.4-5.0); BUN Creatinine Ratio 26.5 (10-20); Bilirubin,Total 1.4 mg/dl (0.2-1.0); Calcium 8.8 mg/dl (8.6-10.3); Creatinine Clr Calc Pharmacy 73.3 ml/min; Magnesium 1.8 mg/dl (1.7-2.4); Potassium 3.8 mmol/L (3.5-5.1); Total Protein 6.8 gm/dl (6.0-8.3)
[2024-12-01 20:20] LABS: Bilirubin Direct 0.2 mg/dl (0-0.2)
[2024-12-01 20:32] LABS: Adenovirus PCR Not Detected (NotDetected); Bordetella parapertussis PCR Not Detected (NotDetected); Bordetella pertussis PCR Not Detected (NotDetected); Chlamydia pneumoniae PCR Not Detected (NotDetected); Coronavirus 229E PCR Not Detected (NotDetected); Coronavirus CoV-2 (COVID19)PCR Not Detected (NotDetected); Coronavirus HKU1 PCR Not Detected (NotDetected); Coronavirus NL63 PCR Not Detected (NotDetected); Coronavirus OC43PCR Not Detected (NotDetected); Human Metapneumovirus PCR Not Detected (NotDetected); Influenza A PCR Not Detected (NotDetected); Influenza B PCR Not Detected (NotDetected); Mycoplasma pneumoniae PCR Not Detected (NotDetected); Parainfluenza Virus 1 PCR Not Detected (NotDetected); Parainfluenza Virus 2 PCR Not Detected (NotDetected); Parainfluenza Virus 3 PCR Not Detected (NotDetected); Parainfluenza Virus 4 PCR Not Detected (NotDetected); Respiratory Syncytial VirusPCR Not Detected (NotDetected); Rhinovirus/Enterovirus PCR Not Detected (NotDetected)
[2024-12-01 20:58] LABS: Appearance Urine Cloudy (Clear); Bacteria Urine Automated None Seen (None Seen); Bilirubin Urine Negative (Negative); Blood Urine Trace (Negative); Cast Urine Automated 0-2 /lpf (0-2); Color Urine Dark Yellow; Epithelial Cell Urine Auto 0-2 /hpf (0-2); Glucose Urine UA Negative (Negative); Ketones Urine Trace (Negative); Leukocyte Esterase Urine Trace (Negative); Nitrite Urine Negative (Negative); Protein Urine 1+ (Negative); Specific Gravity Urine 1.024 (1.000-1.030); Urobilinogen Urine Negative (Negative); WBC Urine Automated 0-5 /hpf (0-5); pH Urine 7.5 (4.5-7.5)
[2024-12-01] MEDS ORDERED: VANCOMYCIN CONSULT ACTIVE PRN (21:02)
[2024-12-01] MEDS: VANCOMYCIN HCL 1,500 MG in SODIUM CHLORIDE 0.9% 500 ML IV ONE (21:58)
[2024-12-01] MEDS ORDERED: ONDANSETRON INJ 2 MG/ML 2 ML VIAL IV PRN (22:10)
[2024-12-01] MEDS ORDERED: ACETAMINOPHEN 325 MG TAB PO PRN (22:10)
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
[2024-12-02] MEDS ORDERED: MELATONIN 3 MG TAB PO PRN (00:43)
[2024-12-02] MEDS ORDERED: MIDODRINE HCL 2.5 MG TAB PO PRN (00:43)
[2024-12-02] MEDS: PIPERACILLIN/TAZOBACTAM 4.5 GM/100 ML BAG IV STA (00:53)
--- NOTE | 2024-12-02 02:44 | Billing Data ---
Date of Service December 01, 2024 Coding Level of Care Code 99722 INT INP/OBS CARE
[2024-12-02] MEDS: VANCOMYCIN HCL 1,000 MG/270 ML BAG IV SCH (04:25)
[2024-12-02] MEDS: LEVOTHYROXINE SODIUM 75 MCG TABLET PO SCH (05:57)
[2024-12-02] MEDS: PIPERACILLIN/TAZOBACTAM 4.5 GM/100 ML BAG IV SCH (05:57)
[2024-12-02 06:37] LABS: Hematocrit (blood only) 27.8 % (42.0-52.0); Hemoglobin 9.1 g/dl (14.0-18.0); Mean Corpuscular Hemoglobin 29.5 pg (25.0-34.0); Mean Corpuscular Hgb Conc 32.7 g/dL (32.0-36.0); Mean Corpuscular Volume 90.3 fL (80.0-100.0); Mean Platelet Volume 11.2 fL (9.4-12.4); Platelet Count 129 K/uL (130-400); RDW Coefficient of Variation 13.4 % (11.5-14.5); RDW Standard Deviation 44.3 fL (36.4-46.3); Red Blood Count 3.08 M/uL (4.70-6.10)
[2024-12-02 07:46] LABS: Albumin Globulin Ratio 1.3 (0.9-2); Bilirubin,Total 1.4 mg/dl (0.2-1.0); Creatinine Clr Calc Pharmacy 81.1 ml/min; Globulin 2.4 gm/dl (2.5-4.0); Potassium 3.4 mmol/L (3.5-5.1); Total Protein 5.4 gm/dl (6.0-8.3)
[2024-12-02] MEDS: LACTATED RINGER'S 1,000 ML IV SCH (08:30)
--- NOTE | 2024-12-02 08:43 | Electrocardiogram Report ---
Test Reason : Blood Pressure : */* mmHG Vent. Rate : 101 BPM Atrial Rate : * BPM P-R Int : * ms QRS Dur : 86 ms QT Int : 354 ms P-R-T Axes : * -35 57 degrees QTcB Int : 459 ms Atrial fibrillation with rapid ventricular response Left axis deviation Abnormal ECG When compared with ECG of 13-Nov-2024 12:58, QRS axis Shifted left Confirmed by Compa Torres ([id number]) on 12/02/2024 8:42:47 AM Referred By: REFERRED SELF Confirmed By: Compa Torres
[2024-12-02] MEDS: ATORVASTATIN 20 MG TAB PO SCH (09:17)
[2024-12-02] MEDS: APIXABAN 5 MG TABLET PO SCH (09:17)
[2024-12-02] MEDS: FLUDROCORTISONE ACETATE 0.1 MG TAB PO SCH (09:17)
[2024-12-02] MEDS: POLYETHYLENE (MIRALAX) 17 GM PACK PO SCH (09:21)
[2024-12-02] MEDS: DOCUSATE SODIUM 100 MG CAP PO SCH (09:21)
[2024-12-02] MEDS: DOXYCYCLINE HYCLATE 100 MG in DEXTROSE 5% MINI-B 100 ML IV SCH (09:21)
[2024-12-02] MEDS ORDERED: SODIUM CHLOR 7% 4 ML NEB NEB SCH (10:40)
--- NOTE | 2024-12-02 14:41 | Hospitalist Progress Note ---
Date of Service December 02, 2024 Assessment & Plan (1) Multifocal pneumonia: (2) Pleural effusion: (3) Atrial fibrillation with rapid ventricular response: (4) Hypothyroidism: (5) Parkinson disease: Plan Patient is an 84-year-old male with a past medical history of Parkinson's disea se, a-fib, HLD, recent sepsis due to multifocal pneumonia, and hx of UTIs who presented to the ED for weakness combination with cough, congestion, rigors and fevers. Pt's CXR shows worsened LLL infiltrate, mild patchy infiltrate RLL and small left pleural effusion. Denies urinary symptoms, home condom cath is in place. EKG in ED initially showed a-fib RVR, at admission, a-fib remains but rate was less than 100. #Pneumonia/left pleural effusion - Continue Zosyn due to recent hospitalizations. Vancomycin discontinued MRSA nasal swab negative. Added doxycycline for atypical coverage. - Discussed possible discharge today versus observation overnight given frequent recent hospitalizations his is reluctant to take him home today. #A-fib with RVR - Now resolved - Continue to monitor - Continue home med of apixaban #Parkinson's disease - Stage 5, pt is non ambulatory - Has had ST for swallow eval in last admission. No new recommendations - Diet is minced and moist, no thickened liquids - Aspiration precautions Chronic conditions: HLD- continue atorvastatin 20 mg Hypothyroidism- Continue levothyroxine Hypotension- Continue Midodrine 2.5 mg qd PRN Chronic hyponatremia- Continue fludrocortisone 0.1mg BID- hold if SBP>140 Insomnia- Continue melatonin Dispo: med tele Diet: regular minced/moist DVT: continue Apixaban Code: conditional- no chest compression, would consider short term intubation, no termite exterminator ventilator Admission and Anticipated Discharge Date Admission Date: December 01, 2024 Subjective Appears to be improved from admission. Doing much better than when I last saw the patient with multifocal pneumonia in September. Currently on room air. Previously seen by speech and language therapy in September with no aspirations on video swallow for aspiration precautions recommended. Symptoms of rigors discussed with his at bedside. No fever since admission. No specific respiratory, gastrointestinal or urinary complaints. Physical Exam Constitutional: WD/WN, vitals as above Respiratory: normal respiratory effort; no respiratory distress Auscultation: + crackles (Bibasal); no wheezes Cardiovascular: Rate/Rhythm: regular rhythm and + tachycardic Heart Sounds: no murmur Extremities: normal capillary refill; no calf tenderness and no pedal edema Gastrointestinal (Abdomen): normal bowel sounds, soft, nontender, no hepatosplenomegaly Results & Data Results & Data Vital Signs (Past 12 Hours) Vital Signs Temp Pulse Pulse Resp BP BP Pulse Ox 12/02/24 11:09 36.3 C L 75 18 160/80 H 97 12/02/24 07:39 36.8 C 95 H 18 146/80 H 92 12/02/24 03:45 37.0 C 82 20 146/85 H 93 O2 Del Method 12/02/24 11:09 Room Air 12/02/24 07:39 Room Air 12/02/24 03:45 Room Air PG Care Time/CCT Total # of Minutes Spent Total Time Spent with Patient: Total time spent is greater than 50% in coordination of care (as documented) at patient's floor/unit and/or counseling patient: Coding Level of Care Code 35266 SUB INP/OBS CARE 2/35MIN Diagnoses Multifocal pneumonia J18.9 Pleural effusion J90 Atrial fibrillation with rapid ventricular response I48.91 Hypothyroidism E03.9 Parkinson disease G20.A1
[2024-12-02] MEDS: POTASSIUM CHLORIDE CRTAB 20 MEQ TABCR PO STA (17:22)
[2024-12-02] MEDS: QUEtiapine FUMARATE 25 MG TABLET PO SCH (18:18)
[2024-12-02] MEDS: DONEPEZIL HCL 10 MG TAB PO SCH (18:18)
[2024-12-02] MEDS: clonazePAM 1 MG TAB PO SCH (20:25)
[2024-12-02] MEDS ORDERED: PHA DELIRIUM CONSULT PRN (22:06)
[2024-12-03 06:33] LABS: Hematocrit (blood only) 29.3 % (42.0-52.0); Hemoglobin 9.7 g/dl (14.0-18.0); Mean Corpuscular Hemoglobin 29.9 pg (25.0-34.0); Mean Corpuscular Hgb Conc 33.1 g/dL (32.0-36.0); Mean Corpuscular Volume 90.4 fL (80.0-100.0); Mean Platelet Volume 11.4 fL (9.4-12.4); Platelet Count 137 K/uL (130-400); RDW Coefficient of Variation 13.3 % (11.5-14.5); RDW Standard Deviation 44.4 fL (36.4-46.3); Red Blood Count 3.24 M/uL (4.70-6.10); White Blood Count 4.18 K/ul (4.8-10.8)
[2024-12-03 06:52] LABS: Albumin Globulin Ratio 1.3 (0.9-2); Albumin Level 3.2 gm/dl (3.4-5.0); BUN Creatinine Ratio 18.5 (10-20); Bilirubin,Total 1.4 mg/dl (0.2-1.0); Calcium 8.1 mg/dl (8.6-10.3); Creatinine Clr Calc Pharmacy 73.9 ml/min; Globulin 2.4 gm/dl (2.5-4.0); Potassium 3.2 mmol/L (3.5-5.1); Total Protein 5.6 gm/dl (6.0-8.3)
[2024-12-03 07:44] VITALS: RESP 17
[2024-12-03] MEDS: POTASSIUM CHLORIDE CRTAB 20 MEQ TABCR PO STA (10:30)
--- NOTE | 2024-12-03 10:39 | Discharge Summary ---
Discharge Summary Date of Service December 03, 2024 Principal Dx & Hospital Course #1 = Principal Diagnosis (1) Multifocal pneumonia: (2) Pleural effusion: (3) Atrial fibrillation with rapid ventricular response: (4) Hypothyroidism: (5) Parkinson disease: Plan Andrew Barba is an 84 year old male admitted to [facility] from December 01-2024 due to chills and rigors. He was diagnosed with pneumonia and treated with intravenous Zosyn and doxycycline. Biofire PCR testing was negative. He was not requiring oxygen but given recent hospitalizations he was monitored for an additional day without complications. He will be discharged on Augmentin and doxycycline to finish a total 7 day course of antibiotics. Notes For Next Care Provider Routine hospital follow-up Medication Changes From Visit Augmentin and doxycycline started for pneumonia, no other medication changes Admission HPI Per Admitting Provider Patient is an 84-year-old male with a past medical history of Parkinson's disease, a-fib, recent sepsis due to multifocal pneumonia, and hx of UTIs who presented to the ED for weakness combination with cough and congestion and fevers. Pt's was at bedside and provides most of pt's history. She reports noting rigors this morning, followed by fever of 102 approx 2 hours later. She has noted nasal congestion/drainage and productive cough. Pt has also had 4 days of fecal incontinence that has been loose. denies nicole blood or melenic stools. Pt denies chest pain, SOB, sore throat, muscle aches, abdominal pain, nausea, vomiting or diarrhea. Pt has had a [facility]R at [facility] last week that was just reported to today having pleural effusion and increasing consolidation. Discharge Exam Constitutional WD/WN, vitals as above Respiratory normal respiratory effort; no respiratory distress Auscultation: + crackles (Bibasal); no wheezes Cardiovascular Rate/Rhythm: regular rhythm and + tachycardic Heart Sounds: no murmur Extremities: normal capillary refill; no calf tenderness and no pedal edema Gastrointestinal (Abdomen) normal bowel sounds, soft, nontender, no hepatosplenomegaly Discharge Plan Discharge Items Patient Disposition: Home - Self-Care Reason For Visit: PNUEMONIA Discharge Diagnosis: Pneumonia Activity: Resume your previous activity Non-emergency contact: Primary Care Provider Call non-emergency contact if: you have any medication questions and your symptoms worsen Follow-up/Referrals: Philip Whitfield MD [Primary Care Provider] - Diet: Regular Diet Texture: Mechanical soft (ground) Addtl Attending Provider Instructions: You were admitted to [facility] from December 01-2024 due to chills and rigors. You were diagnosed with pneumonia and treated with intravenous Zosyn and doxycycline. You will be discharged on Augmentin and doxycycline to finish a total 7 day course of antibiotics. Pending Studies at Discharge: No Stand-Alone Forms: [facility], Smoking Cessation Medications and DC Order Prescriptions: New amoxicillin-pot clavulanate 875-125 mg tablet 1 tab PO BID 5 Days Qty: 10 0RF doxycycline hyclate 100 mg tablet 100 mg PO BID 5 Days Qty: 10 0RF Continued atorvastatin [Lipitor] 20 mg tablet 20 mg PO QAM donepezil 10 mg tablet 10 mg PO HS Qty: 30 4RF Rx Instructions: His dose per multivitamin [Daily Multi-Vitamin] Tablet 1 tab PO QAM levothyroxine 75 mcg tablet 75 mcg PO DAILYBB fludrocortisone 0.1 mg tablet 0.1 mg PO BID melatonin 3 mg Tablet 9 mg PO HS PRN (Reason: Insomnia) fluticasone propionate 50 mcg/actuation [place],Suspension 1 spray INTRANASAL BID PRN (Reason: Congestion) clonazepam 1 mg tablet 1 mg PO HS Eliquis 5 mg tablet 5 mg PO BID docusate sodium 100 mg Capsule 100 mg PO QAM midodrine 2.5 mg tablet 2.5 mg PO DAILY PRN (Reason: Orthostatic Hypotension) Rx Instructions: Give if Blood Pressure is less than 90/60 mmhg or feeling dizzy, do NOT give if blood pressure is higher than 130/80 mmhg venlafaxine 75 mg capsule,extended release 24hr 75 mg PO QAM hydrocortisone 0.5 % Cream 1 applic TOPICAL BID PRN (Reason: Dermatitis) Ensure Liquid 1 ea PO DAILY Rx Instructions: [place] flavor cholecalciferol (vitamin D3) [Vitamin D3] 25 mcg (1,000 unit) Tablet 25 mcg PO BID potassium chloride 20 mEq tablet extended release 0 meq PO QAM Rx Instructions: Per family, pt cannot swallow this pill anymore. Ask for liquid to be given while in the hospital if possible. Original Directions: 20meq by mouth every morning polyethylene glycol 3350 [Miralax] 17 gram/dose powder 17 gm PO QAM Discharge Orders: Discharge Order (Routine); Ordered 12/03/24 Ordered By: Endy Burris Admission Data Admit Date/Time: 12/01/24 22:13 Attending Provider: Endy Burris Admit Provider: Linda Langston Primary Care Provider: Philip Whitfield Other Providers: Kiara Stokes Other Interventions: Discharge Summary Assessment (RN) Last Done: 12/03/24 10:48 Hospital Stay Data Consultations 12/01/24 21:15 ED Decision to Admit Stat Pending Results Patient Have Any Pending Studies at Discharge: No Discharge Instructions Given to Patient (Per Discharging Provider) You were admitted to [facility] from December 01-2024 due to chills and rigors. You were diagnosed with pneumonia and treated with intravenous Zosyn and doxycycline. You will be discharged on Augmentin and doxycycline to finish a total 7 day course of antibiotics. Total Time Total Time Spent Total Time Spent (In Minutes): 35 Coding Level of Care Code 51270 INP/OBS DISCH >30 MIN Diagnoses Multifocal pneumonia J18.9 Pleural effusion J90 Atrial fibrillation with rapid ventricular response I48.91 Hypothyroidism E03.9 Parkinson disease G20.A1
[2024-12-03 11:39] VITALS: BP 151/84; PULSE 79; TEMP 97.3; O2SAT 96
== END 2024-12-03 15:29 | disposition home or self-care (01) | DRG 194 ==
LOC: ED 18:16 → 2N 22:13 → SUATTDRO 22:13 → 2N 23:33
DX: J18.9 Pneumonia, unspecified organism; J90 Pleural effusion, not elsewhere classified; D64.9 Anemia, unspecified; I48.91 Unspecified atrial fibrillation; E78.5 Hyperlipidemia, unspecified; I95.89 Other hypotension; G20.A1 Parkinson's disease without dyskinesia, without mention of fluctuations; G47.00 Insomnia, unspecified; E03.9 Hypothyroidism, unspecified; E87.1 Hypo-osmolality and hyponatremia

== ENCOUNTER 2024-12-24 11:53 | Observation (INO) ==
[2024-12-24 12:51] LABS: Basophils # (auto) 0.04 K/uL (0.00-0.20); Basophils % (auto) 1.1 %; Eosinophils # (auto) 0.31 K/uL (0.00-0.50); Eosinophils % (auto) 8.3 %; Hematocrit (blood only) 37.2 % (42.0-52.0); Immature Granulocytes # (auto) 0.01 K/uL (0.01-0.20); Immature Granulocytes % (auto) 0.3 %; Lymphocytes % (auto) 29.5 %; Mean Corpuscular Hemoglobin 29.3 pg (25.0-34.0); Mean Corpuscular Hgb Conc 32.3 g/dL (32.0-36.0); Mean Corpuscular Volume 90.7 fL (80.0-100.0); Mean Platelet Volume 11.3 fL (9.4-12.4); Monocytes # (auto) 0.44 K/uL (0.11-0.59); Monocytes % (auto) 11.8 %; Neutrophils # (auto) 1.83 K/uL (1.40-6.50); Platelet Count 171 K/uL (130-400); RDW Coefficient of Variation 13.4 % (11.5-14.5); RDW Standard Deviation 44.7 fL (36.4-46.3); White Blood Count 3.73 K/ul (4.8-10.8)
--- NOTE | 2024-12-24 12:58 | CT Scan Report ---
CT head/brain wo con CLINICAL HISTORY: syncope vs seizure. TECHNIQUE: Multiple axial CT images of the head were obtained without contrast. A dose lowering tech nique was utilized adhering to the principles of ALARA. CT DOSE: 1332.42 mGy.cm COMPARISON: 11/13/2024. FINDINGS: No intracranial hemorrhage seen. No mass effect, midline shift, or hydrocephalus. There are stable mo derate chronic small vessel ischemic changes. Visualized paranasal sinuses and mastoid air cells are clear. No skull fracture seen. IMPRESSION: No acute findings. ACT 112: Negative or not required by law. The above report was generated using voice recognition software. It may contain grammatical, syntax o r spelling errors. Electronically signed by: Anderson Le M.D. 12/24/2024 12:56 PM
--- NOTE | 2024-12-24 13:00 | XRay Report ---
XR chest 1V portable CLINICAL HISTORY: Sepsis COMPARISON STUDY: 12/01/2024 FINDINGS: Stable cardiomegaly with mild pulmonary vascular congestion. Stable opacity at the left bas e with obscuration of the left hemidiaphragm. No pneumothorax. IMPRESSION: Stable exam. ACT 112: Negative or not required by law. Electronically signed by: Anderson Le M.D. 12/24/2024 12:59 PM
[2024-12-24 13:08] LABS: Albumin Level 3.8 gm/dl (3.4-5.0); BUN Creatinine Ratio 19.5 (10-20); Bilirubin Direct 0.2 mg/dl (0-0.2); Calcium 9.1 mg/dl (8.6-10.3); Creatinine Clr Calc Pharmacy 75.5 ml/min; Magnesium 1.8 mg/dl (1.7-2.4); Potassium 3.4 mmol/L (3.5-5.1); Total Protein 7.1 gm/dl (6.0-8.3)
[2024-12-24 13:14] LABS: Troponin I High Sensitivity 12.3 pg/ml (0-20)
[2024-12-24 13:23] LABS: INR 1.1 (0.9-1.1); Partial Thromboplastin Ratio 1.2; Partial Thromboplastin Time 31 Seconds (21-31); Prothrombin Time 11.4 Seconds (9.0-12.0)
[2024-12-24 13:33] LABS: Base Excess VBG 8.4 mEq/L; HCO3 VBG 36 mmol/L; Oxygen Saturation VBG 62.2 %; PCO2 VBG 64 mmHg (38-50); PO2 VBG 36 mmHg; pH VBG 7.36 (7.36-7.41)
[2024-12-24 15:25] LABS: Appearance Urine Clear (Clear); Bilirubin Urine Negative (Negative); Blood Urine Negative (Negative); Color Urine Yellow; Glucose Urine UA Negative (Negative); Ketones Urine Negative (Negative); Leukocyte Esterase Urine Negative (Negative); Nitrite Urine Negative (Negative); Protein Urine Negative (Negative); Urobilinogen Urine Negative (Negative)
--- NOTE | 2024-12-24 16:15 | Electrocardiogram Report ---
Test Reason : Blood Pressure : */* mmHG Vent. Rate : 81 BPM Atrial Rate : * BPM P-R Int : * ms QRS Dur : 80 ms QT Int : 384 ms P-R-T Axes : * 33 41 degrees QTcB Int : 446 ms Poor data quality, interpretation may be adversely affected Atrial fibrillation Septal infarct , age undetermined Abnormal ECG When compared with ECG of 01-Dec-2024 18:57, QRS axis Shifted right ST now depressed in Anterior leads Confirmed by Perez Wu ([id number]) on 12/24/2024 4:15:35 PM Referred By: Confirmed By: Perez Wu
[2024-12-24] MEDS ORDERED: FLUTICASONE PROPIONATE NA SPR 16 GM BTL NAE PRN (16:37)
[2024-12-24] MEDS ORDERED: HYDROCORTISONE 2.5% CR 30 GM TUBE EXT PRN (16:43)
[2024-12-24] MEDS ORDERED: MIDODRINE HCL 2.5 MG TAB PO PRN (16:56)
[2024-12-24] MEDS ORDERED: MIDODRINE HCL 2.5 MG TAB PO SCH (17:00)
[2024-12-24] MEDS: POTASSIUM CHLORIDE 20 MEQ/15 ML UDC PO SCH (17:35)
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
[2024-12-24] MEDS: clonazePAM 1 MG TAB PO SCH (20:35)
[2024-12-24] MEDS: MELATONIN 3 MG TAB PO SCH (20:35)
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
[2024-12-25] MEDS: LEVOTHYROXINE SODIUM 75 MCG TABLET PO SCH (05:47)
[2024-12-25] MEDS ORDERED: MIDODRINE HCL 2.5 MG TAB PO PRN (06:39)
[2024-12-25 07:51] LABS: Hematocrit (blood only) 33.9 % (42.0-52.0); Hemoglobin 11.1 g/dl (14.0-18.0); Mean Corpuscular Hgb Conc 32.7 g/dL (32.0-36.0); Mean Corpuscular Volume 91.6 fL (80.0-100.0); Mean Platelet Volume 11.1 fL (9.4-12.4); Platelet Count 143 K/uL (130-400); RDW Coefficient of Variation 13.5 % (11.5-14.5); RDW Standard Deviation 45.4 fL (36.4-46.3); White Blood Count 4.62 K/ul (4.8-10.8)
[2024-12-25 07:53] VITALS: RESP 17
[2024-12-25 07:59] LABS: BUN Creatinine Ratio 21.1 (10-20); Creatinine Clr Calc Pharmacy 78.9 ml/min; Magnesium 1.8 mg/dl (1.7-2.4); Potassium 3.8 mmol/L (3.5-5.1)
[2024-12-25] MEDS: VENLAFAXINE HCL XR 75 MG CAPXR PO SCH (08:12)
[2024-12-25] MEDS: POLYETHYLENE (MIRALAX) 17 GM PACK PO SCH (08:12)
[2024-12-25] MEDS: DOCUSATE SODIUM 100 MG CAP PO SCH (08:12)
[2024-12-25] MEDS: MULTIVITAMIN TAB PO SCH (08:12)
--- NOTE | 2024-12-25 08:50 | Hospitalist Progress Note ---
Date of Service December 25, 2024 Assessment & Plan (1) Observed seizure-like activity: (2) Syncope: Plan 84 year old male with known orthostasis causing syncopal episodes presents to the ER with another syncopal episode however also some concern from his [facility] neurologist regarding possible seizures. #Syncope / seizure like activity - Known orthostatic hypotension with low BP this morning, may need to use midodrine more routinely, Continue Midodrine 2.5 mg qd PRN for sBP < 140 - check orthostatic vitals (lying and sitting, pt is wheelchair bound and has difficulty with standing) - on advice of [facility] neurology will workup for possible seizure episodes with EEG and MRI brain seizure protocol - will request neuro eval - pt evaluated PT (12/03/24)- recs pt to return home #Parkinson's disease - Stage 5, pt is non ambulatory - Has had ST for swallow eval prior admissions. No new recommendations - Diet is minced and moist, no thickened liquids - Aspiration precautions - per neurology note from 11/18/24, recs continuing carbidopa/levodopa 25/100mg BID (will order) #Atrial fibrillation - Persistent - Rate controlled without AV bridgett blocking agents - Continue Eliquis #HLD- continue atorvastatin 20 mg #Hypothyroidism- Continue levothyroxine #Chronic hyponatremia- Continue fludrocortisone 0.1mg BID- hold if SBP>140 #Insomnia- Continue melatonin VTE Prophylaxis - Eliquis Disposition - observation to med/tele Admission and Anticipated Discharge Date Admission Date: December 24, 2024 Subjective pt not able to offer much history. Per H&P, pt had an unresponsive episode with shakiness Review of Systems Review of Systems: Comprehensive ROS completed Pt offered no complaints at this time Physical Exam Physical Exam: Gen: elderly male in bed HEENT: NC/AT, slow speech, anicteric Lungs: CTAB CVS: [id number], irregular Abd: soft, NT, nl bowel sounds Ext: no edema Neuro: awake, slow speech, stiff movement Psych: calm, cooperative Results & Data Results & Data Vital Signs (Past 12 Hours) Vital Signs Temp Pulse Pulse Resp BP BP Pulse Ox 12/25/24 07:53 36.5 C 88 17 143/82 H 98 12/25/24 02:58 36.8 C 79 18 119/76 95 12/24/24 23:19 36.7 C 85 18 104/62 95 04/11/25 21:54 79 O2 Del Method 12/25/24 07:53 Room Air 12/25/24 02:58 Room Air 12/24/24 23:19 Room Air 12/24/24 21:54 PG Care Time/CCT Total # of Minutes Spent Total Time Spent with Patient: Total time spent is greater than 50% in coordination of care (as documented) at patient's floor/unit and/or counseling patient: Coding Level of Care Code 65298 SUB INP/OBS CARE 2/35MIN Diagnoses Observed seizure-like activity R56.9 Syncope R55
[2024-12-25] MEDS ORDERED: NON-FORMULARY MEDICATION (Food Supplemt, Lactose-Reduced [Ensure] Liquid) PO SCH (09:00)
[2024-12-25] MEDS: CARBIDOPA/LEVODOPA 25/100MG TAB PO SCH (10:47)
[2024-12-25 11:22] VITALS: BP 186/93; TEMP 97.3; O2SAT 100
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
[2024-12-25] MEDS: GADOBUTROL 65ML VIAL IV ONE (13:07)
--- NOTE | 2024-12-25 14:12 | Magnetic Resonance Report ---
MR brain seizure wo/w con CLINICAL HISTORY: seizure like acitivity COMPARISON STUDY: Head CT yesterday and MRI 07/20/2024. FINDINGS: There is motion artifact. No restricted diffusion seen to suggest acute infarction. No mass effect, midline shift, or hydrocephalus. There is stable mild cerebral atrophy. Stable severe chroni c small vessel ischemic changes. Stable fluid in multiple mastoid air cells bilaterally. No abnormal enhancement seen in the brain. No brain mass seen. IMPRESSION: 1. No evidence of acute infarction. No abnormal enhancement in the brain. 2. Otherwise as described. ACT 112: Negative or not required by law. Electronically signed by: Anderson Le M.D. 12/25/2024 2:10 PM
--- NOTE | 2024-12-25 14:47 | Electroencephalogram ---
EEG Procedure Note Date of Service December 25, 2024 Start / End Times Start Time: 1343 End Time: [address] Burris History 84-year-old with episodes of seizure-like activity and unresponsiveness. Home Medication List Medication Instructions Recorded Confirmed Type atorvastatin 20 mg tablet (Lipitor) 20 mg PO UD 05/11/19 12/24/24 History multivitamin (Daily Multi-Vitamin 1 tab PO QAM 06/30/19 12/24/24 History tablet) levothyroxine 75 mcg tablet 75 mcg PO UD 12/26/22 12/24/24 History midodrine 2.5 mg tablet 2.5 mg PO DAILY PRN Orthostatic 10/23/23 12/24/24 History Hypotension fludrocortisone 0.1 mg tablet 0.1 mg PO UD HOLD IF SBP > 140 02/16/24 12/24/24 History fluticasone propionate 50 1 spray intranasal BID PRN 02/16/24 12/24/24 History mcg/actuation nasal Congestion spray,suspension melatonin 3 mg tablet 9 mg PO HS PRN Insomnia 02/16/24 12/24/24 History venlafaxine 75 mg capsule,extended 75 mg PO UD 03/21/24 12/24/24 History release 24 hr donepezil 10 mg tablet 10 mg PO HS #30 tabs 07/29/24 12/24/24 Rx cholecalciferol (vitamin D3) 25 25 mcg PO BID 10/11/24 12/24/24 History mcg (1,000 unit) tablet (Vitamin D3) food supplemt, lactose-reduced 1 ea PO DAILY 10/11/24 12/24/24 History (Ensure oral liquid) hydrocortisone 0.5 % topical cream 1 applic topical BID PRN Dermatitis 10/11/24 12/24/24 History polyethylene glycol 3350 17 17 gm PO QAM Constipation 10/11/24 12/24/24 History gram/dose oral powder (Miralax) potassium chloride 20 mEq 20 meq PO UD 10/11/24 12/24/24 History tablet,extended release apixaban 5 mg tablet (Eliquis) 5 mg PO UD 10/26/24 12/24/24 History clonazepam 1 mg tablet 1 mg PO HS 10/26/24 12/24/24 History docusate sodium 100 mg capsule 100 mg PO QAM 10/26/24 12/24/24 History Inpatient Medication List Clonazepam (Clonazepam 1 Mg Tab) 1 mg PO [facility] Stop: 01/23/25 20:59 Last Admin: 12/24/24 20:35 Dose: 1 mg Documented By: [id number] Docusate Sodium (Docusate Sodium 100 Mg Cap) [facility] Stop: 01/24/25 08:59 Last Admin: 12/25/24 08:12 Dose: 100 mg Documented By: GREGORY Levothyroxine Sodium (Levothyroxine Sodium 75 Mcg Tablet) [facility] Stop: 01/24/25 06:29 Last Admin: 12/25/24 05:47 Dose: 75 mcg Documented By: [id number] Melatonin (Melatonin 3 Mg Tab) 9 mg PO [facility] Stop: 01/23/25 20:59 Last Admin: 12/24/24 20:35 Dose: 9 mg Documented By: [id number] Multivitamins (Multivitamin Tab) 1 tab [facility] Stop: 01/24/25 08:59 Last Admin: 12/25/24 08:12 Dose: 1 tab Documented By: GREGORY Polyethylene Glycol (Polyethylene (Miralax) 17 Gm Pack) 17 gm PO [facility] Stop: 01/24/25 08:59 Last Admin: 12/25/24 08:12 Dose: 17 gm Documented By: GREGORY Potassium Chloride (Potassium Chloride 20 Meq/15 Ml Udc) 20 meq PO [facility] Stop: 01/23/25 16:44 Last Admin: 12/25/24 08:12 Dose: 20 meq Documented By: Admin: 12/24/24 17:35 Dose: 20 meq Documented By: GREGORY Venlafaxine HCl (Venlafaxine Hcl Xr 75 Mg Capxr) 75 mg PO [facility] Stop: 01/24/25 08:59 Last Admin: 12/25/24 08:12 Dose: 75 mg Documented By: GREGORY Discontinued Medications Carbidopa/Levodopa (Carbidopa/Levodopa 25/100mg Tab) 1 tab PO BID [facility] Stop: 01/24/25 09:59 Last Admin: 12/25/24 10:47 Dose: Not Given Documented By: GREGORY Gadobutrol (Gadobutrol 65ml Vial) 7 ml IV ONCE ONE Stop: 12/25/24 13:07 Last Admin: 12/25/24 13:07 Dose: 7 ml Documented By: DLS Description This is a 21 electrode EEG with a single channel dedicated to limited EKG. The electrodes were placed in accordance with the International 10-20 system. Interpretation The predominant background activity consists of an irregular 5-6 hz activity, of up to 50 mV in amplitude,seen symmetrically distributed over the posterior head regions bilaterally, spreading anteriorly bilaterally and symmetrically. This a ctivity attenuates some with eye-opening and other alerting procedures. Photic stimulation was performed and elicited no change in the background activity and no abnormal responses were seen. Hyperventilation was not performed. A mild amount of muscle and movement artifact activity contaminated the recording, yet did not hinder interpretation to any significant degree. Throughout the waking portion of the recording, no focal abnormalities or potentially epileptogenic discharges were seen. The patient entered the drowsy state (and brief stage II sleep) multiple times throughout the recording with no further activation. In summary, this EEG was abnormal during wakefulness as noted by mild generalized cerebral dysrhythmia (slowing). Drowsiness and light sleep produced no further activation. No focal abnormalities or potentially epileptogenic discharges were seen. Clinical Correlation The generalized slowing of a mild nature is nonspecific and could correlate with a wide variety of factors including his neurodegenerative disease. The absence of potentially epileptogenic activity does not exclude a seizure disorder, since interictally, EEGs can be normal. Clinical correlation is required. [facility] EEG Procedure Codes Indication for Procedure (1) Observed seizure-like activity: Neurology Neurology: 99324 EEG include record awake & drowsy
--- NOTE | 2024-12-25 14:59 | Discharge Summary ---
Discharge Summary Date of Service December 25, 2024 Principal Dx & Hospital Course #1 = Principal Diagnosis (1) Observed seizure-like activity: (2) Syncope: Plan 84 year old male with known orthostasis causing syncopal episodes presents to the ER with another syncopal episode however also some concern from his [facility] neurologist regarding possible seizures. #Syncope / seizure like activity - Known orthostatic hypotension with low BP this morning, may need to use midodrine more routinely, Continue Midodrine 2.5 mg qd PRN for sBP < 140 - check orthostatic vitals (lying and sitting, pt is wheelchair bound and has difficulty with standing) - on advice of [facility] neurology will workup for possible seizure episodes with EEG and MRI brain seizure protocol - pt evaluated by neuro here, EEG and MRI reviewed. Recs starting Keppra 500mg BID, pt's agreeable and will follow up with Dr. Alvarado as outpatient - pt evaluated PT (12/03/24)- recs pt to return home #Parkinson's disease - Stage 5, pt is non ambulatory - Has had ST for swallow eval prior admissions. No new recommendations - Diet is minced and moist, no thickened liquids - Aspiration precautions - per discussion with , sinemet has been held as outpatient as it is not providing him with much benefit - pt's to discuss goals of care with pt and Dr. Alvarado as outpatient #Atrial fibrillation - Persistent - Rate controlled without AV bridgett blocking agents - Continue Eliquis #HLD- continue atorvastatin 20 mg #Hypothyroidism- Continue levothyroxine #Chronic hyponatremia- Continue fludrocortisone 0.1mg BID- hold if SBP>140 #Insomnia- Continue melatonin Admission HPI Per Admitting Provider Andrew Barba is an 84 year old male with Parkinson's disease who presents to the ER due to a syncopal event at home. This morning after getting up in the wheel chair he started shaking and became unresponsive. This has occurred before but due to his low oxygen saturations and low blood pressure by EMS he was brought to the ER for further evaluation. He had taken his midodrine shortly before this occurred. He had also had some ensure this morning. The ER physician discussed with [facility] neurology and recommend admission for EEG as he is currently being worked up for possible seizures causing these episodes anyway. He currently feels back to his baseline self. Discharge Exam Gen: elderly male in bed HEENT: NC/AT, slow speech, anicteric Lungs: CTAB CVS: [id number], irregular Abd: soft, NT, nl bowel sounds Ext: no edema Neuro: awake, slow speech, stiff movement Psych: calm, cooperative Discharge Plan Discharge Items Patient Disposition: Home - Self-Care Reason For Visit: SYNCOPE Discharge Diagnosis: Seizure-like activity Activity: Resume your previous activity Non-emergency contact: Neurologist Call non-emergency contact if: you have any medication questions and your symptoms worsen Follow-up/Referrals: Wes Alvarado MD [Physician] - Philip Whitfield MD [Primary Care Provider] - Diet: Regular Diet Comment: minced moist Addtl Attending Provider Instructions: Follow up with Dr. Alvarado as outpatient Review medication list with Dr. Alvarado and PCP to reduce overall pill burden Pending Studies at Discharge: No Stand-Alone Forms: My Social Pulse, Smoking Cessation Medications and DC Order Prescriptions: New levetiracetam 500 mg tablet 500 mg PO BID 30 Days Qty: 60 0RF Continued atorvastatin [Lipitor] 20 mg tablet 20 mg PO UD Rx Instructions: 20 mg po qam. No fill history available donepezil 10 mg tablet 10 mg PO HS Qty: 30 4RF Rx Instructions: His dose per multivitamin [Daily Multi-Vitamin] Tablet 1 tab PO QAM Rx Instructions: No fill history available levothyroxine 75 mcg tablet 75 mcg PO UD Rx Instructions: 75 mcg po daily. No fill history available fludrocortisone 0.1 mg tablet 0.1 mg PO UD Rx Instructions: 0.1 mg po bid. No fill history available melatonin 3 mg Tablet 9 mg PO HS PRN (Reason: Insomnia) Rx Instructions: otc unable to verify fluticasone propionate 50 mcg/actuation [place],Suspension 1 spray INTRANASAL BID PRN (Reason: Congestion) Rx Instructions: No fill history available clonazepam 1 mg tablet 1 mg PO HS Eliquis 5 mg tablet 5 mg PO UD Rx Instructions: 5 mg po bid. last filled 11/18/24 14 day supply docusate sodium 100 mg Capsule 100 mg PO QAM Rx Instructions: otc unable to verify midodrine 2.5 mg tablet 2.5 mg PO DAILY PRN (Reason: Orthostatic Hypotension) Rx Instructions: 2.5 mg po daily prn. Give if Blood Pressure is less than 90/60 mmhg or feeling dizzy, do NOT give if blood pressure is higher than 130/80 mmhg. 12/24- no fill history available venlafaxine 75 mg capsule,extended release 24hr 75 mg PO UD Rx Instructions: 75 mg po qam. last filled 11/12/24 14 day supply hydrocortisone 0.5 % Cream 1 applic TOPICAL BID PRN (Reason: Dermatitis) Rx Instructions: No fill history available/otc Ensure Liquid 1 ea PO DAILY Rx Instructions: Addison flavor. otc unable to verify cholecalciferol (vitamin D3) [Vitamin D3] 25 mcg (1,000 unit) Tablet 25 mcg PO BID Rx Instructions: otc unable to verify potassium chloride 20 mEq tablet extended release 20 meq PO UD Rx Instructions: 12/24-No fill history available Per family, pt cannot swallow this pill anymore. Ask for liquid to be given while in the hospital if possible. Original Directions: 20meq by mouth every morning. polyethylene glycol 3350 [Miralax] 17 gram/dose powder 17 gm PO QAM Rx Instructions: otc unable to verify Discharge Orders: Discharge Order (Routine); Ordered 12/25/24 Ordered By: Jacy Callaway Admission Data Admit Date/Time: 12/24/24 14:30 Attending Provider: Jacy Callaway Admit Provider: Endy Burris Primary Care Provider: Philip Whitfield Other Providers: Endy Burris; Shashank Hastings Hospital Stay Data Consultations 12/24/24 13:35 ED Decision to Admit Stat 12/25/24 09:45 Consult Neurology Routine Diagnostic Imagining Performed 12/24/24 12:26 CT head/brain wo con Stat 12/24/24 21:41 MRI Brain [MR brain seizure wo/w con] Routine Discharge Instructions Given to Patient (Per Discharging Provider) Follow up with Dr. Alvarado as outpatient Review medication list with Dr. Alvarado and PCP to reduce overall pill burden Total Time Total Time Spent Total Time Spent (In Minutes): 45 Coding Level of Care Code 97353 INP/OBS DISCH >30 MIN Diagnoses Observed seizure-like activity R56.9 Syncope R55
[2024-12-25 16:02] VITALS: PULSE 75
== END 2024-12-25 16:01 | disposition home or self-care (01) ==
LOC: 4W 11:53 → ED 11:53 → SUATTDRO 14:30 → 4W 16:20

== ENCOUNTER 2025-01-11 16:11 | Inpatient (IN) ==
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
[2025-01-11 16:46] LABS: Basophils # (auto) 0.03 K/uL (0.00-0.20); Basophils % (auto) 0.6 %; Eosinophils # (auto) 0.25 K/uL (0.00-0.50); Eosinophils % (auto) 5.2 %; Hematocrit (blood only) 37.5 % (42.0-52.0); Hemoglobin 12.4 g/dl (14.0-18.0); Immature Granulocytes # (auto) 0.01 K/uL (0.01-0.20); Immature Granulocytes % (auto) 0.2 %; Lymphocytes # (auto) 1.04 K/uL (1.20-3.40); Lymphocytes % (auto) 21.8 %; Mean Corpuscular Hgb Conc 33.1 g/dL (32.0-36.0); Mean Corpuscular Volume 90.8 fL (80.0-100.0); Mean Platelet Volume 10.9 fL (9.4-12.4); Monocytes # (auto) 0.29 K/uL (0.11-0.59); Monocytes % (auto) 6.1 %; Neutrophils # (auto) 3.15 K/uL (1.40-6.50); Neutrophils % (auto) 66.1 %; Platelet Count 218 K/uL (130-400); RDW Coefficient of Variation 13.4 % (11.5-14.5); RDW Standard Deviation 44.8 fL (36.4-46.3); Red Blood Count 4.13 M/uL (4.70-6.10); White Blood Count 4.77 K/ul (4.8-10.8)
[2025-01-11] MEDS: SODIUM CHLORIDE 0.9% 1,000 ML IV ONE (16:54)
[2025-01-11 17:16] LABS: Alanine Aminotransferase 8 U/L (7-52); Albumin Globulin Ratio 1.2 (0.9-2); Albumin Level 3.8 gm/dl (3.4-5.0); Alkaline Phosphatase 82 U/L (34-104); Anion Gap 5 (3-11); BUN Creatinine Ratio 15.8 (10-20); Bilirubin,Total 0.9 mg/dl (0.2-1.0); Blood Urea Nitrogen 15 mg/dl (6-23); Calcium 8.9 mg/dl (8.6-10.3); Carbon Dioxide 33 mmol/L (21-32); Chloride 102 mmol/L (98-107); Glucose 113 mg/dl (70-99(Fasting)); Magnesium 1.9 mg/dl (1.7-2.4); Sodium 140 mmol/L (136-145); Troponin I High Sensitivity 9.7 pg/ml (0-20)
[2025-01-11 17:19] LABS: INR 1.1 (0.9-1.1); Partial Thromboplastin Ratio 0.9; Partial Thromboplastin Time 24 Seconds (21-31); Prothrombin Time 11.7 Seconds (9.0-12.0)
[2025-01-11 17:21] LABS: Globulin 3.2 gm/dl (2.5-4.0); Thyroid Stimulating Hormone 2.035 uIu/ml (0.300-4.500)
[2025-01-11 17:53] LABS: Potassium 4.2 mmol/L (3.5-5.1)
--- NOTE | 2025-01-11 17:56 | XRay Report ---
EXAM: XR chest 1V portable CLINICAL HISTORY: Syncope. TECHNIQUE: An X-ray image of the chest is obtained in AP projection. COMPARISON: 12/24/2024. FINDINGS: Pulmonary Parenchyma: Lungs are clear bilaterally. No evidence of consolidation, collapse, or focal opacities. No pulmonary nodules are identified. No evidence of pleural effusion or pleural thickening. Heart and Mediastinum: Cardiomegaly with congsetion of both glenn noted shows interval improvment. No mediastinal widening or masses. No hilar or mediastinal lymphadenopathy. Bony Thorax: Bony thorax appears intact without fractures or deformities. Soft Tissues: Soft tissues overlying the chest wall are unremarkable. IMPRESSION: 1. Cardiomegaly with congsetion of both glenn noted shows mild interval improvment. 2. No evidence of consolidation, effusion, or focal opacities. Electronically signed by Faraz Felipe 01-11-2025 5:56 PM
[2025-01-11 18:32] LABS: Appearance Urine Clear (Clear); Bacteria Urine Automated None Seen (None Seen); Bilirubin Urine Negative (Negative); Blood Urine Negative (Negative); Color Urine Dark Yellow; Epithelial Cell Urine Auto 0-2 /hpf (0-2); Glucose Urine UA Negative (Negative); Ketones Urine Trace (Negative); Leukocyte Esterase Urine Trace (Negative); Mucus Urine Present (None Prsent); Nitrite Urine Negative (Negative); Protein Urine Trace (Negative); Specific Gravity Urine 1.014 (1.000-1.030); Urobilinogen Urine Negative (Negative); WBC Urine Automated 0-5 /hpf (0-5)
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
[2025-01-11] MEDS: LACTULOSE SYRUP 30 GM/45 ML UDP PO STA (21:52)
[2025-01-11] MEDS ORDERED: MIDODRINE HCL 2.5 MG TAB PO PRN (23:26)
[2025-01-11] MEDS ORDERED: HYDROCORTISONE 1% CRM 30 GM TUBE EXT PRN (23:26)
[2025-01-11] MEDS ORDERED: POLYETHYLENE (MIRALAX) 17 GM PACK PO PRN (23:26)
[2025-01-11] MEDS ORDERED: ONDANSETRON INJ 2 MG/ML 2 ML VIAL IV PRN (23:26)
[2025-01-11] MEDS: LACTATED RINGER'S 1,000 ML IV SCH (23:52)
[2025-01-11] MEDS: ACETAMINOPHEN 325 MG TAB PO PRN (23:56)
[2025-01-11] MEDS: FLUDROCORTISONE ACETATE 0.1 MG TAB PO STA (23:58)
[2025-01-11] MEDS: APIXABAN 5 MG TABLET PO STA (23:58)
[2025-01-11] MEDS: DONEPEZIL HCL 10 MG TAB PO STA (23:58)
[2025-01-11] MEDS: levETIRAcetam 500 MG TAB PO STA (23:59)
[2025-01-12] MEDS: clonazePAM 1 MG TAB PO STA (00:01)
[2025-01-12] MEDS: LEVOTHYROXINE SODIUM 75 MCG TABLET PO SCH (06:01)
--- NOTE | 2025-01-12 07:47 | XRay Report ---
EXAM: XR KUB/Abdomen 1 view CLINICAL HISTORY: Constipation. TECHNIQUE: X-ray images of the abdomen were obtained in supine and upright positions. COMPARISON: No prior studies available for comparison. FINDINGS: Gas Pattern: Gas pattern within the abdomen is normal. No evidence of bowel obstruction or distention. Mild colonic gaseous distendion with pevic colon fecal loading. Soft Tissues: Soft tissues of the abdomen appear normal without evidence of masses or calcifications. Liver, spleen, and kidneys are of normal size and position. Bilateral hip joint degenerative changes. IMPRESSION: 1. Distended colon loaded with fecal matter; otherwise, normal abdominal X-ray. 2. No acute abnormalities identified. Electronically signed by Faraz Felipe 01-12-2025 07:46 AM
[2025-01-12 07:57] LABS: Hematocrit (blood only) 29.3 % (42.0-52.0); Hemoglobin 9.6 g/dl (14.0-18.0); Mean Corpuscular Hemoglobin 29.5 pg (25.0-34.0); Mean Corpuscular Hgb Conc 32.8 g/dL (32.0-36.0); Mean Corpuscular Volume 90.2 fL (80.0-100.0); Platelet Count 154 K/uL (130-400); RDW Coefficient of Variation 13.2 % (11.5-14.5); RDW Standard Deviation 44.2 fL (36.4-46.3); Red Blood Count 3.25 M/uL (4.70-6.10); White Blood Count 9.96 K/ul (4.8-10.8)
[2025-01-12 08:35] LABS: BUN Creatinine Ratio 20.3 (10-20); Calcium 8.1 mg/dl (8.6-10.3); Creatinine Clr Calc Pharmacy 87.4 ml/min; Potassium 3.6 mmol/L (3.5-5.1)
[2025-01-12] MEDS: POTASSIUM CHLORIDE 10 MEQ TABCR PO SCH (09:02)
[2025-01-12] MEDS: POLYETHYLENE (MIRALAX) 17 GM PACK PO SCH (09:02)
[2025-01-12] MEDS: FLUDROCORTISONE ACETATE 0.1 MG TAB PO SCH ×2 (09:03→21:12)
[2025-01-12] MEDS: MINERAL OIL ENEMA 133 ML BTL PR SCH (09:03)
[2025-01-12] MEDS: ATORVASTATIN 20 MG TAB PO SCH (09:04)
[2025-01-12] MEDS: APIXABAN 5 MG TABLET PO SCH (09:04)
[2025-01-12] MEDS: VENLAFAXINE HCL XR 75 MG CAPXR PO SCH (09:04)
[2025-01-12] MEDS: levETIRAcetam 500 MG TAB PO SCH (09:04)
[2025-01-12] MEDS: MIDODRINE HCL 2.5 MG TAB PO SCH (16:35)
--- NOTE | 2025-01-12 17:13 | Hospitalist Progress Note ---
Date of Service January 12, 2025 Assessment & Plan (1) Syncope: (2) Constipation: Plan 84-year-old male PMHx PAD, A-fib on Eliquis, orthostatic hypotension, seizure disorder, hypothyroidism, and HLD presenting for hypotension and referral from outpatient doctor. ED evaluation reveals leukopenia 4.77, H&H 12.4/37.5; PT/INR WNL; CMP CO2 33, glucose 113; troponin 9.7; TSH 2.034; UA with trace findings no clear bacteria identified; CXR cardiomegaly with congestion of both glenn noted shows mild interval improvement without evidence of consolidation/effusion/focal opacities; KUB pending official read; EKG reads as A-fib at rate 89 bpm.; Provided with 1L NSS and lactulose 30 g p.o. in ED. #Syncope/hypotension Chronic problem. Patient with history of orthostatic hypotension and on midodrine prn for such. Blood pressures were in SBP's 60s and with manual repeat in the 70s. Patient without complaints. Patient with ? seizure in the past, currently on levetiracetam twice daily for such. No seizure like activity the day of arrival. BP stable at time of evaluation after IVF provided. - CBC leukopenia, H/H 12.4/37.5; CMP CO2 33, glucose 113; troponin 9.7; TSH 2.035 - CBC, BMP am - EKG Afib, rate controlled - CXR without acute findings; KUB w/ distended colon loaded w/ fecal matter. - Echo 04/2024- moderate LVH, mild AR, mild to moderate pulmonary valvular regurg, mild MR, MPS PA 30 to 40 mmHg - given prior pericardial effusion, repeat 01/12 w/ no change & technically difficult study. - Midodrine for hypotension - switch to 2.5mg scheduled BID --> can up-titrate as needed. - continue fludrocortisone BID #Constipation Last BM 4 days ago, since then has had loose stool passing. Miralax and docusate at home. - KUB as above. - Miralax BID - Docusate + Senna - s/p enema 01/12 - Pt required colonoscopy prep in the past - agreeable to use this if above intervention unsuccessful --> if no BM by 01/13 will do golytlyl - has requested a repeat KUB prior to discharge which is acceptable considering patient's significant hx of constipation. #A-fib, persistent Previous history of A-fib, anticoagulated on Eliquis. - EKG on admission showed A-fib, rate controlled - Echo repeat w/ difficult study but appeared unchanged. - Telemetry discontinued 01/12 secondary to patient pulling off leads. #PD/Lewy body dementia Stage V PD, nonambulatory. Does not tolerate carbidopa levodopa. - Diet minced and moist - Clonazepam, donepezil, venlafaxine- continue - Has had delirium in past - reports Seroquel has worked well if his mental status worsenes. - discussed options to keep patient out of hospital including scheduled midodrine & up -titrating bowel regimen at home. Chronic conditions: HLD: Statin Hypothyroidism: TSH 2.35, levothyroxine Insomnia: melatonin Dispo: Admit, med/tele VTE prophylaxis: Aleyda Updated at bedside, discussed plan of care extensively 01/12. Admission and Anticipated Discharge Date Admission Date: January 11, 2025 Subjective Patient seen and examined this morning. Patient poor historian but reports he is feeling okay. Discussed w/ patient's extensive history - patient has never been tried on scheduled midodrine in past. He does experience syncopal often but does not usually lose conscious and is able to come around. states that these cannot be predicted. also reports that he does have a bowel regimen at home including Miralax and stool softeners. For a brief period he was experiencing fecal incontinence but that was a few weeks ago and had since resolved. She states that happened at the neurology office does happen often and reports she would not typically take him to the hospital for this as it is typical for him. However she was glad he was here due to his constipation. Physical Exam Physical Exam: General: no acute distress; non-toxic appearing; well-nourished; cooperative HEENT: normocephalic, atraumatic; no scleral icterus; PERRLA w/ EOMs intact; vision and hearing grossly intact Skin: warm, dry without signs of tenting; no cyanosis; no rashes, bruising, lesions, or erythema noted Lungs: no acute respiratory distress; symmetrical chest wall expansion MSK: no edema noted in the LEs b/l, nonerythematous Results & Data Results & Data Vital Signs (Past 12 Hours) Vital Signs Temp Pulse Pulse Resp BP Pulse Ox O2 Del Method 01/12/25 15:15 36.7 C 101 H 16 163/85 H 96 Room Air 01/12/25 13:03 103 H 01/12/25 12:16 36.4 C L 83 19 159/83 H 97 Room Air 01/12/25 07:56 Room Air 01/12/25 07:45 36.4 C L 85 18 123/72 95 Room Air 01/12/25 05:40 86 PG Care Time/CCT Total # of Minutes Spent Total Time Spent with Patient: Total time spent is greater than 50% in coordination of care (as documented) at patient's floor/unit and/or counseling patient: Coding Level of Care Code 16364 SUB INP/OBS CARE 3/50MIN Diagnoses Syncope R55 Constipation K59.00
[2025-01-12] MEDS: DONEPEZIL HCL 10 MG TAB PO SCH (21:12)
[2025-01-12] MEDS: clonazePAM 1 MG TAB PO SCH (21:13)
[2025-01-12] MEDS: DOCUSATE SODIUM/SENNA 50/8.6MG TAB PO SCH (21:13)
[2025-01-13 07:10] LABS: BUN Creatinine Ratio 17.8 (10-20); Calcium 8.5 mg/dl (8.6-10.3); Creatinine Clr Calc Pharmacy 82.7 ml/min; Potassium 3.7 mmol/L (3.5-5.1)
[2025-01-13 07:40] LABS: Hematocrit (blood only) 29.7 % (42.0-52.0); Hemoglobin 9.9 g/dl (14.0-18.0); Mean Corpuscular Hemoglobin 30.2 pg (25.0-34.0); Mean Corpuscular Hgb Conc 33.3 g/dL (32.0-36.0); Mean Corpuscular Volume 90.5 fL (80.0-100.0); Mean Platelet Volume 10.5 fL (9.4-12.4); Platelet Count 149 K/uL (130-400); RDW Coefficient of Variation 13.2 % (11.5-14.5); Red Blood Count 3.28 M/uL (4.70-6.10); White Blood Count 4.31 K/ul (4.8-10.8)
--- NOTE | 2025-01-13 09:40 | Electrocardiogram Report ---
Test Reason : Blood Pressure : */* mmHG Vent. Rate : 89 BPM Atrial Rate : * BPM P-R Int : * ms QRS Dur : 82 ms QT Int : 372 ms P-R-T Axes : * -9 39 degrees QTcB Int : 452 ms Atrial fibrillation Abnormal ECG When compared with ECG of 24-Dec-2024 12:11, Non-specific change in ST segment in Inferior leads Confirmed by Vinay Wolfe ([id number]) on 01/13/2025 9:39:59 AM Referred By: Kalani Juarez Confirmed By: Vinay Wolfe
[2025-01-13] MEDS: POLYETHYLENE (MIRALAX) 17 GM PACK PO SCH (12:17)
[2025-01-13] MEDS: LACTATED RINGER'S 1,000 ML IV SCH (12:18)
--- NOTE | 2025-01-13 17:15 | Hospitalist Progress Note ---
Date of Service January 13, 2025 Assessment & Plan (1) Syncope: (2) Constipation: Plan 84-year-old male PMHx PAD, A-fib on Eliquis, orthostatic hypotension, seizure disorder, hypothyroidism, and HLD presenting for hypotension and referral from outpatient doctor. ED evaluation reveals leukopenia 4.77, H&H 12.4/37.5; PT/INR WNL; CMP CO2 33, glucose 113; troponin 9.7; TSH 2.034; UA with trace findings no clear bacteria identified; CXR cardiomegaly with congestion of both glenn noted shows mild interval improvement without evidence of consolidation/effusion/focal opacities; KUB pending official read; EKG reads as A-fib at rate 89 bpm.; Provided with 1L NSS and lactulose 30 g p.o. in ED. #Syncope/hypotension Chronic problem. Patient with history of orthostatic hypotension and on midodrine prn for such. Blood pressures were in SBP's 60s and with manual re peat in the 70s. Patient without complaints. Patient with ? seizure in the past, currently on levetiracetam twice daily for such. No seizure like activity the day of arrival. BP stable at time of evaluation after IVF provided. - CBC/ BMP stable - CXR without acute findings; KUB w/ distended colon loaded w/ fecal matter. - Echo 04/2024- moderate LVH, mild AR, mild to moderate pulmonary valvular regurg, mild MR, MPS PA 30 to 40 mmHg - given prior pericardial effusion, repeat 01/12 w/ no change & technically difficult study. - Midodrine for hypotension - switch to 2.5mg scheduled BID --> can up-titrate as needed. - Continue to monitor BP closely. - continue fludrocortisone BID #Constipation Last BM 4 days ago, since then has had loose stool passing. Miralax and docusate at home. - KUB as above. - Miralax switched to 34gm q6h - Continue Docusate + Senna - s/p enema 01/12 - has requested a repeat KUB prior to discharge which is acceptable considering patient's significant hx of constipation. #A-fib, persistent Previous history of A-fib, anticoagulated on Eliquis. - EKG on admission showed A-fib, rate controlled - Echo repeat w/ difficult study but appeared unchanged. - Telemetry discontinued 4/30 secondary to patient pulling off leads. #PD/Lewy body dementia Stage V PD, nonambulatory. Does not tolerate carbidopa levodopa. - Diet minced and moist - Clonazepam, donepezil, venlafaxine- continue - Has had delirium in past - reports Seroquel has worked well if his mental status worsens. - discussed options to keep patient out of hospital including scheduled midodrine & up -titrating bowel regimen at home. Chronic conditions: HLD: Statin Hypothyroidism: TSH 2.35, levothyroxine Insomnia: melatonin Code: DNR/DNI VTE prophylaxis: Eliquis Updated at bedside 01/13 Admission and Anticipated Discharge Date Admission Date: January 11, 2025 Subjective Patient seen and examined this morning. present at bedside. He denied any complaints. He has not had a BM thus far. Physical Exam Physical Exam: General: no acute distress; non-toxic appearing; well-nourished; cooperative HEENT: normocephalic, atraumatic; no scleral icterus; PERRLA w/ EOMs intact; vision and hearing grossly intact Skin: warm, dry without signs of tenting; no cyanosis; no rashes, bruising, lesions, or erythema noted Lungs: no acute respiratory distress; symmetrical chest wall expansion ABD: Soft, NTP; BS present; no rebound/guarding; no distention Results & Data Results & Data Vital Signs (Past 12 Hours) Vital Signs Temp Pulse Resp BP BP Pulse Ox O2 Del Method 01/13/25 16:13 36.9 C 100 H 150/104 H 155/97 H 94 Room Air 01/13/25 07:38 36.5 C 77 16 169/93 H 95 Room Air 01/13/25 07:09 Room Air PG Care Time/CCT Total # of Minutes Spent Total Time Spent with Patient: Total time spent is greater than 50% in coordination of care (as documented) at patient's floor/unit and/or counseling patient: Coding Level of Care Code 70834 SUB INP/OBS CARE 2/35MIN Diagnoses Syncope R55 Syncope type: unspecified Constipation K59.00 Constipation type: unspecified constipation type (1) Syncope Syncope type: unspecified Qualified Code(s): R55 - Syncope and collapse (2) Constipation Constipation type: unspecified constipation type Qualified Code(s): K59.00 - Constipation, unspecified
[2025-01-13] MEDS: MELATONIN 3 MG TAB PO PRN (20:40)
[2025-01-13] MEDS ORDERED: PHA DELIRIUM CONSULT PRN (21:34)
[2025-01-14 06:17] LABS: Hematocrit (blood only) 31.4 % (42.0-52.0); Hemoglobin 10.4 g/dl (14.0-18.0); Mean Corpuscular Hemoglobin 29.5 pg (25.0-34.0); Mean Corpuscular Hgb Conc 33.1 g/dL (32.0-36.0); Mean Corpuscular Volume 89.2 fL (80.0-100.0); Mean Platelet Volume 10.4 fL (9.4-12.4); Platelet Count 153 K/uL (130-400); RDW Coefficient of Variation 13.2 % (11.5-14.5); Red Blood Count 3.52 M/uL (4.70-6.10)
[2025-01-14 06:37] LABS: BUN Creatinine Ratio 18.2 (10-20); Calcium 8.6 mg/dl (8.6-10.3); Creatinine Clr Calc Pharmacy 90.3 ml/min; Potassium 3.3 mmol/L (3.5-5.1)
[2025-01-14] MEDS: POTASSIUM CHLORIDE CRTAB 20 MEQ TABCR PO ONE (14:11)
--- NOTE | 2025-01-14 15:35 | Hospitalist Progress Note ---
Date of Service January 14, 2025 Assessment & Plan (1) Syncope: (2) Constipation: Plan 84-year-old male PMHx PAD, A-fib on Eliquis, orthostatic hypotension, seizure disorder, hypothyroidism, and HLD presenting for hypotension and referral from outpatient doctor. ED evaluation reveals leukopenia 4.77, H&H 12.4/37.5; PT/INR WNL; CMP CO2 33, glucose 113; troponin 9.7; TSH 2.034; UA with trace findings no clear bacteria identified; CXR cardiomegaly with congestion of both glenn noted shows mild interval improvement without evidence of consolidation/effusion/focal opacities; KUB pending official read; EKG reads as A-fib at rate 89 bpm.; Provided with 1L NSS and lactulose 30 g p.o. in ED. #Syncope/hypotension Chronic problem. Patient with history of orthostatic hypotension and on midodrine prn for such. Blood pressures were in SBP's 60s and with manual re peat in the 70s. Patient without complaints. Patient with ? seizure in the past, currently on levetiracetam twice daily for such. No seizure like activity the day of arrival. BP stable at time of evaluation after IVF provided. - CBC; BMP w/ low K of 3.3, additional 20meq K given 01/14. - CXR without acute findings; KUB w/ distended colon loaded w/ fecal matter. - Echo 04/2024- moderate LVH, mild AR, mild to moderate pulmonary valvular regurg, mild MR, MPS PA 30 to 40 mmHg - given prior pericardial effusion, repeat 01/12 w/ no change & technically difficult study. - Midodrine for hypotension - switch to 2.5mg scheduled BID --> can up-titrate as needed. - Continue to monitor BP closely. - continue fludrocortisone BID #Constipation Last BM 4 days ago, since then has had loose stool passing. Miralax and docusate at home. - KUB as above. - Miralax 34gm q6h - Continue Docusate + Senna - s/p enema 01/12 - has requested a repeat KUB prior to discharge which is acceptable considering patient's significant hx of constipation. --> repeat 01/15 in AM. If improved patient can likely be discharged w/ Miralax 17gm BID scheduling. #A-fib, persistent Previous history of A-fib, anticoagulated on Eliquis. - EKG on admission showed A-fib, rate controlled - Echo repeat w/ difficult study but appeared unchanged. - Telemetry discontinued 01/12 secondary to patient pulling off leads. #PD/Lewy body dementia Stage V PD, nonambulatory. Does not tolerate carbidopa levodopa. - Diet minced and moist - Clonazepam, donepezil, venlafaxine- continue - Has had delirium in past - reports Seroquel has worked well if his mental status worsens. - discussed options to keep patient out of hospital including scheduled midodrine & up -titrating bowel regimen at home. Chronic conditions: HLD: Statin Hypothyroidism: TSH 2.35, levothyroxine Insomnia: melatonin Code: DNR/DNI VTE prophylaxis: Eliquis Updated at bedside 01/14 Admission and Anticipated Discharge Date Admission Date: January 11, 2025 Subjective Patient seen and examined this morning. He was resting comfortably in bed at time of encounter. He denied complaints today. Discussed plan of care w/ . Physical Exam Physical Exam: General: no acute distress; non-toxic appearing; well-nourished; cooperative HEENT: normocephalic, atraumatic; no scleral icterus; PERRLA w/ EOMs intact; vision and hearing grossly intact Skin: warm, dry without signs of tenting; no cyanosis; no rashes, bruising, lesions, or erythema noted Lungs: no acute respiratory distress; symmetrical chest wall expansion ABD: Soft, NTP; BS present; no rebound/guarding; no distention Neuro: normal mood and affect; fluent speech; no focal deficits Results & Data Results & Data Vital Signs (Past 12 Hours) Vital Signs Temp Pulse Resp BP Pulse Ox O2 Del Method 01/14/25 12:17 36.5 C 82 15 143/82 H 93 Room Air 01/14/25 08:45 Room Air 01/14/25 07:55 36.6 C 90 12 159/77 H 96 Room Air 01/14/25 04:00 36.5 C 93 H 18 159/87 H 94 Room Air PG Care Time/CCT Total # of Minutes Spent Total Time Spent with Patient: Total time spent is greater than 50% in coordination of care (as documented) at patient's floor/unit and/or counseling patient: Coding Level of Care Code 17619 SUB INP/OBS CARE 2MIN Diagnoses Syncope R55 Syncope type: unspecified Constipation K59.00 Constipation type: unspecified constipation type (1) Syncope Syncope type: unspecified Qualified Code(s): R55 - Syncope and collapse (2) Constipation Constipation type: unspecified constipation type Qualified Code(s): K59.00 - Constipation, unspecified
[2025-01-15 06:31] LABS: Hematocrit (blood only) 30.3 % (42.0-52.0); Hemoglobin 10.1 g/dl (14.0-18.0); Mean Corpuscular Hemoglobin 29.9 pg (25.0-34.0); Mean Corpuscular Hgb Conc 33.3 g/dL (32.0-36.0); Mean Corpuscular Volume 89.6 fL (80.0-100.0); Mean Platelet Volume 11.2 fL (9.4-12.4); Platelet Count 155 K/uL (130-400); RDW Coefficient of Variation 13.2 % (11.5-14.5); RDW Standard Deviation 43.7 fL (36.4-46.3); Red Blood Count 3.38 M/uL (4.70-6.10); White Blood Count 7.61 K/ul (4.8-10.8)
[2025-01-15 06:57] LABS: BUN Creatinine Ratio 19.2 (10-20); Calcium 8.3 mg/dl (8.6-10.3); Creatinine Clr Calc Pharmacy 81.7 ml/min; Potassium 3.6 mmol/L (3.5-5.1)
[2025-01-15 07:59] VITALS: BP 156/81; PULSE 64; RESP 16; TEMP 97.5; O2SAT 96
--- NOTE | 2025-01-15 08:44 | XRay Report ---
Clinical history: Rule out small bowel obstruction 2 views of the abdomen were obtained Comparison is made to the prior examination dated 01/11/2025 Findings: There is no definite sign of bowel obstruction. Gas is seen within normal caliber small and large bowel loops. There is a suspected left pleural effusion and possible left lower lobe pneumonia. No renal or ureteral calculi are seen. No foreign body is evident. No osseous abnormality is seen Impression: 1. Nonobstructive bowel gas pattern 2. Apparent left pleural effusion and possible left lower lobe pneumonia ACT 112: Positive. There are findings on this exam that require communication between the performing entity and the patient following Patient Test Result Information Act ([place] ACT 112) guidelines. Electronically signed by Esdras Ramirez 01-15-2025 08:43 AM
--- NOTE | 2025-01-15 14:48 | Discharge Summary ---
Discharge Summary Date of Service January 15, 2025 Principal Dx & Hospital Course #1 = Principal Diagnosis (1) Syncope: (2) Constipation: Plan 84-year-old male PMHx PAD, A-fib on Eliquis, orthostatic hypotension, seizure disorder, hypothyroidism, and HLD presenting for hypotension and referral from outpatient doctor. ED evaluation reveals leukopenia 4.77, H&H 12.4/37.5; PT/INR WNL; CMP CO2 33, glucose 113; troponin 9.7; TSH 2.034; UA with trace findings no clear bacteria identified; CXR cardiomegaly with congestion of both glenn noted shows mild interval improvement without evidence of consolidation/effusion/focal opacities; KUB pending official read; EKG reads as A-fib at rate 89 bpm.; Provided with 1L NSS and lactulose 30 g p.o. in ED. #Syncope/hypotension Chronic problem. Patient with history of orthostatic hypotension and on midodrine prn for such. Blood pressures were in SBP's 60s and with manual repeat in the 70s. Patient without complaints. Patient with ? seizure in the past, currently on levetiracetam twice daily for such. No seizure like activity the day of arrival. BP stable at time of evaluation after IVF provided. - CBC; BMP w/ low K of 3.3, additional 20meq K given 01/14. - CXR without acute findings; KUB w/ distended colon loaded w/ fecal matter. - Echo 04/2024- moderate LVH, mild AR, mild to moderate pulmonary valvular regurg, mild MR, MPS PA 30 to 40 mmHg - given prior pericardial effusion, repeat 01/12 w/ no change & technically difficult study. - Midodrine for hypotension - switch to 2.5mg scheduled BID --> can up-titrate as needed. - Continue to monitor BP closely. - continue fludrocortisone BID #Constipation Last BM 4 days ago, since then has had loose stool passing. Miralax and docusate at home. - KUB as above. - Miralax 34gm q6h - Continue Docusate + Senna - s/p enema 01/12 - rpt KUB shows nonobstructive bowel gas pattern - d/c on miralax bid, docusate bid, senna bid prn, bisacodyl OR daily prn , outpatient GI referral #A-fib, persistent Previous history of A-fib, anticoagulated on Eliquis. - EKG on admission showed A-fib, rate controlled - Echo repeat w/ difficult study but appeared unchanged. - Telemetry discontinued 01/12 secondary to patient pulling off leads. #PD/Lewy body dementia Stage V PD, nonambulatory. Does not tolerate carbidopa levodopa. - Diet minced and moist - Clonazepam, donepezil, venlafaxine- continue - Has had delirium in past - reports Seroquel has worked well if his mental status worsens. - discussed options to keep patient out of hospital including scheduled midodrine & up -titrating bowel regimen at home. Chronic conditions: HLD: Statin Hypothyroidism: TSH 2.35, levothyroxine Insomnia: melatonin Code: DNR/DNI VTE prophylaxis: Eliquis Updated at bedside 01/15 Admission HPI Per Admitting Provider 84-year-old male PMHx PAD, A-fib on Eliquis, orthostatic hypotension, seizure disorder, hypothyroidism, and HLD presenting for hypotension and referral from outpatient doctor. Patient's helps to provide a history. States that the afternoon of arrival, the patient was found to by hypotensive and had a syncopal episode which he quickly recovered from and did not seizure-like activity with. Then when going to his urology appointment, his blood pressure was into the SBP's of 60 with repeat in the 70s. Normally takes midodrine if this is the case but the midodrine did not help. Had another syncopal episode at the office. Reportedly passes out once every other day if blood pressures are low also secondary to autonomic dysfunction, but otherwise without symptoms. Last normal BM 4 days [employer], since then having loose stools and in minimal amounts. Does have chronic constipation. Reports no abdominal pain. Just completed outpatient antibiotic course for UTI, and without current symptoms. No chest pain, shortness breath, palpitations, abdominal pain, N/V/D, numbness/tingling, fever/chills, or weakness. States that he has had this happen before. ED evaluation reveals leukopenia 4.77, H&H 12.4/37.5; PT/INR WNL; CMP CO2 33, glucose 113; troponin 9.7; TSH 2.034; UA with trace findings no clear bacteria identified; CXR cardiomegaly with congestion of both glenn noted shows mild interval improvement without evidence of consolidation/effusion/focal opacities; KUB pending official read; EKG reads as A-fib at rate 89 bpm.; Provided with 1L NSS and lactulose 30 g p.o. in ED. Please see Dr. Stokes's attestation for adjustments/additions to treatment plan. Discharge Exam Gen: compared to previous visit, pt appears vibrant, smiling HEENT: NC/AT, MMM CVS: [id number] Lungs: very fine crackles at the bases, no wheezing, upper airway congestion noted Abd: soft, nontender, normal bowel sounds : condom catheter Ext: no edema Neuro: awake Psych: calm Discharge Plan Discharge Items Patient Disposition: Home - Self-Care Reason For Visit: HYPOTENSION , CONSTIPATION Discharge Diagnosis: hypotension, constipation Condition on Discharge: Fair Activity: Resume your previous activity Non-emergency contact: Primary Care Provider and Neurologist Call non-emergency contact if: your symptoms worsen Follow-up/Referrals: Philip Whitfield MD [Primary Care Provider] - Sanju Castillo MD [Physician] - Diet: Regular Diet Comment: minced moist Addtl Attending Provider Instructions: Bowel regimen: miralax BID, docusate BID, senna BID prn, bisacodyl suppository Outpatient follow up with gastroenterology Pending Studies at Discharge: No Stand-Alone Forms: My [facility] [employer], Smoking Cessation Medications and DC Order Prescriptions: New midodrine 2.5 mg Tablet 2.5 mg PO BID 30 Days Qty: 60 0RF bisacodyl 10 mg suppository 10 mg OR DAILY PRN (Reason: constipation) Qty: 30 0RF senna 8.6 mg capsule 8.6 mg PO BID PRN (Reason: constipation) Qty: 60 0RF Continued clonazepam 1 mg tablet 1 mg PO HS 30 Days Qty: 30 0RF atorvastatin [Lipitor] 20 mg tablet 20 mg PO QAM donepezil 10 mg tablet 10 mg PO HS Qty: 30 4RF multivitamin [Daily Multi-Vitamin] Tablet 1 tab PO QAM levothyroxine 75 mcg tablet 75 mcg PO DAILYBB fludrocortisone 0.1 mg tablet 0.1 mg PO BID Rx Instructions: HOLD IF SBP > 140 melatonin 3 mg Tablet 9 mg PO HS PRN (Reason: Insomnia) fluticasone propionate 50 mcg/actuation [place],Suspension 1 spray INTRANASAL BID PRN (Reason: Congestion) Eliquis 5 mg tablet 5 mg PO BID venlafaxine 75 mg capsule,extended release 24hr 75 mg PO QAM hydrocortisone 0.5 % Cream 1 applic TOPICAL BID PRN (Reason: Dermatitis) Ensure Liquid 1 ea PO DAILY Rx Instructions: [place] flavor. otc unable to verify cholecalciferol (vitamin D3) [Vitamin D3] 25 mcg (1,000 unit) Tablet 25 mcg PO BID potassium chloride 20 mEq tablet extended release 30 meq PO QAM levetiracetam 500 mg tablet 500 mg PO BID 30 Days Qty: 60 0RF Changed polyethylene glycol 3350 [Miralax] 17 gram/dose powder 17 gm PO BID 30 Days Qty: 1 0RF docusate sodium 100 mg Capsule 100 mg PO BID 30 Days Qty: 0 0RF Discontinued midodrine 2.5 mg tablet 2.5 mg PO DAILY PRN (Reason: Orthostatic Hypotension) Rx Instructions: 2.5 mg po daily prn. Give if Blood Pressure is less than 90/60 mmhg or feeling dizzy, do NOT give if blood pressure is higher than 130/80 mmhg. 12/24- no fill history available Discharge Orders: Discharge Order (Routine); Ordered 01/15/25 Ordered By: Jacy Callaway Admission Data Admit Date/Time: 01/11/25 21:46 Attending Provider: Jacy Callaway Admit Provider: Kiara Stokes Primary Care Provider: Philip Whitfield Other Providers: [facility]; Kiara Stokes Hospital Stay Data Consultations 01/11/25 20:39 ED Decision to Admit Stat Discharge Instructions Given to Patient (Per Discharging Provider) Bowel regimen: miralax BID, docusate BID, senna BID prn, bisacodyl suppository Outpatient follow up with gastroenterology Total Time Total Time Spent Total Time Spent (In Minutes): 45 Coding Level of Care Code 94792 INP/OBS DISCH >30 MIN Diagnoses Syncope R55 Syncope type: unspecified Constipation K59.00 Constipation type: unspecified constipation type
== END 2025-01-15 15:59 | disposition home or self-care (01) | DRG 57 ==
LOC: ED 16:11 → SUATTDRO 21:46 → 2N 21:46 → 3E 01-14 06:50